=== PATIENT | female | born 1980 | race American Indian/Alaskan Native ===

== ENCOUNTER → 2020-09-17 11:42 | Outpatient (BNVA) | payer OTHER, SELFPAY | PROVIDERS: PCP Internal Medicine; Referring Provider Internal Medicine; Visit Provider Student in an Organized Health Care Education/Training Program | DX: M79.7 Fibromyalgia (principal); Z79.899 Other long term (current) drug therapy | CPT/HCPCS: 99212 ==

== ENCOUNTER → 2020-10-13 14:12 | Outpatient (BNVA) | payer OTHER, SELFPAY | PROVIDERS: PCP Internal Medicine; Visit Provider Internal Medicine Endocrinology, Diabetes & Metabolism | DX: E03.9 Hypothyroidism, unspecified (principal); L68.0 Hirsutism; L64.9 Androgenic alopecia, unspecified; E66.01 Morbid (severe) obesity due to excess calories; Z68.41 Body mass index [BMI] 40.0-44.9, adult; Z79.899 Other long term (current) drug therapy | CPT/HCPCS: 99212 ==

== ENCOUNTER 2020-10-28 07:46 | Outpatient (REF) | payer OTHER, SELFPAY ==
[2020-10-28 09:05] LABS: Anion Gap 13 (12-20); Blood Urea Nitrogen 16 mg/dL (9-16); Calcium 9.3 mg/dL (8.4-10.2); Carbon Dioxide 27 mmol/L (22-29); Chloride 100 mmol/L (96-108); Estimated Glomerular Filt Rate > 60; Glucose Fasting 94 mg/dL (60-99); Potassium 4.5 mmol/l (3.3-5.1); Sodium 135 mmol/L (135-145)
[2020-10-28 09:27] LABS: Free T4 (Free Thyroxine) 1.07 ng/dL (0.71-1.85); Thyroid Stimulating Hormone 1.13 uIU/mL (0.32-4.0)
[2020-10-28 10:48] LABS: Glucose 1 Hour 113 mg/dL
[2020-10-28 11:16] LABS: Glucose Fasting 94 mg/dL (60-99)
[2020-10-28 11:28] LABS: Glucose 2 Hour 114 mg/dL
[2020-10-29 11:17] LABS: DHEA Sulfate 72 mcg/dL (23-266); Sex Hormone Binding Globulin 27 nmol/L (17-124)
[2020-10-30 00:12] LABS: Lutenizing Hormone 4.3 mIU/mL; Prolactin 8.1 ng/mL
[2020-10-30 18:11] LABS: Adrenocorticotropic Hormone <5 pg/mL (6-50)
[2020-11-01 12:23] LABS: IGF-1 (Somatomedin C) 147 ng/mL (53-331); IGF-1 Z Score (Female) 0.1 SD (-2.0 - +2.0)
[2020-11-01 15:02] LABS: Testosterone, Free 2.1 pg/mL (0.1-6.4); Testosterone, Total 16 ng/dL (2-45)
[2020-11-02 17:26] LABS: Androstenedione 40 ng/dL
[2020-11-04 21:23] LABS: 11-Deoxycortisol, LC/MS <20 ng/dL
== END 2020-10-28 07:47 | disposition home or self-care (01) ==
LOC: HO.LAB 07:46
PROVIDERS: PCP Internal Medicine; Referring Provider Student in an Organized Health Care Education/Training Program; Visit Provider Internal Medicine Endocrinology, Diabetes & Metabolism
DX: L68.0 Hirsutism (principal)
CPT/HCPCS: 80048; 82024; 82157; 82533; 82627; 82634; 83001; 83002; 83498; 84146; 84270; 84305; 84402; 84403; 84439; 84443

== ENCOUNTER 2020-10-29 12:49 | Outpatient (REF) | payer OTHER, SELFPAY ==
--- NOTE | 2020-10-29 13:12 | XR_ITS ---
EXAMINATION: XR HIP, LEFT XR HIP, RIGHT CLINICAL INFORMATION: Fibromyalgia. Pain. COMPARISON: None TECHNIQUE: Right hip, 2 views Left hip, 2 views FINDINGS: Left hip: The femoral head is well-positioned within the intact acetabulum. The hip joint space is maintained. Two small smoothly marginated ossicles are noted at the superolateral margin of the acetabulum. No evidence of a degenerative or inflammatory arthropathy. No femoral fracture or osteonecrosis. No soft tissue swelling. Right hip: The femoral head is well-positioned within the intact acetabulum. The hip joint space is normal. No evidence of a degenerative or inflammatory arthropathy. No femoral fracture or osteonecrosis. Soft tissues are unremarkable. XR/XR hip RT min 2V IMPRESSION: No significant radiographic findings at either hip. No specific source of pain is detected.
--- NOTE | 2020-10-29 13:12 | XR_ITS ---
EXAMINATION: XR HIP, LEFT XR HIP, RIGHT CLINICAL INFORMATION: Fibromyalgia. Pain. COMPARISON: None TECHNIQUE: Right hip, 2 views Left hip, 2 views FINDINGS: Left hip: The femoral head is well-positioned within the intact acetabulum. The hip joint space is maintained. Two small smoothly marginated ossicles are noted at the superolateral margin of the acetabulum. No evidence of a degenerative or inflammatory arthropathy. No femoral fracture or osteonecrosis. No soft tissue swelling. Right hip: The femoral head is well-positioned within the intact acetabulum. The hip joint space is normal. No evidence of a degenerative or inflammatory arthropathy. No femoral fracture or osteonecrosis. Soft tissues are unremarkable. XR/XR hip LT min 2V IMPRESSION: No significant radiographic findings at either hip. No specific source of pain is detected.
[2020-11-03 17:58] LABS: Saliva Cortisol 0.03 mcg/dL
== END 2020-10-29 12:50 | disposition home or self-care (01) ==
LOC: HO.XRAY 12:49
PROVIDERS: PCP Internal Medicine; Referring Provider Internal Medicine Endocrinology, Diabetes & Metabolism; Visit Provider Student in an Organized Health Care Education/Training Program
DX: M79.7 Fibromyalgia (principal); L68.0 Hirsutism
CPT/HCPCS: 73502; 82530

== ENCOUNTER → 2021-01-11 10:32 | Outpatient (BNVA) | payer OTHER, SELFPAY | PROVIDERS: PCP Internal Medicine; Visit Provider Internal Medicine Endocrinology, Diabetes & Metabolism | DX: E03.9 Hypothyroidism, unspecified (principal); L68.0 Hirsutism; E66.01 Morbid (severe) obesity due to excess calories | CPT/HCPCS: 99212 ==

== ENCOUNTER → 2021-01-27 09:41 | Outpatient (BNVA) | payer OTHER, SELFPAY | PROVIDERS: PCP Internal Medicine; Visit Provider Dietitian, Registered ==

== ENCOUNTER → 2021-03-01 13:15 | Outpatient (BNVA) | payer OTHER, SELFPAY | PROVIDERS: PCP Internal Medicine; Visit Provider Dietitian, Registered | DX: E66.01 Morbid (severe) obesity due to excess calories (principal) | CPT/HCPCS: 97803 ==

== ENCOUNTER → 2021-03-31 10:57 | Outpatient (BNVA) | payer OTHER, SELFPAY | PROVIDERS: PCP Internal Medicine; Visit Provider Dietitian, Registered | DX: E66.01 Morbid (severe) obesity due to excess calories (principal) | CPT/HCPCS: 97803 ==

== ENCOUNTER 2021-04-29 11:39 | Outpatient (REF) | payer OTHER, SELFPAY ==
--- NOTE | ~2021-04-29 | XR_ITS ---
EXAMINATION: XR LUMBOSACRAL SPINE CLINICAL INFORMATION: Fibromyalgia COMPARISON: None TECHNIQUE: Three views of the lumbosacral spine. FINDINGS: No acute fracture or traumatic malalignment. Mild levoconvex lumbar scoliosis. Small endplate osteophytes present at the thoracolumbar junction. Disc space height is relatively preserved. Mild bilateral cyclic arthrosis. Paraspinal soft tissues unremarkable. XR/XR lumbar spine 2-3V IMPRESSION: No acute findings. Mild lumbar spondylosis as described.
== END 2021-04-29 11:40 | disposition home or self-care (01) ==
LOC: HO.XRAY 11:39
PROVIDERS: PCP Internal Medicine; Visit Provider Student in an Organized Health Care Education/Training Program
DX: M79.7 Fibromyalgia (principal); Z79.899 Other long term (current) drug therapy
CPT/HCPCS: 72100; 99212

== ENCOUNTER → 2021-06-02 13:39 | Outpatient (BNVA) | payer OTHER, SELFPAY | PROVIDERS: PCP Internal Medicine; Visit Provider Dietitian, Registered | DX: E66.01 Morbid (severe) obesity due to excess calories (principal); Z68.39 Body mass index [BMI] 39.0-39.9, adult | CPT/HCPCS: 97803 ==

== ENCOUNTER 2021-06-28 10:34 | Outpatient (REF) | payer OTHER, SELFPAY ==
[2021-06-28 14:09] LABS: MANUAL DIFF FLAG NO
[2021-06-28 14:15] LABS: Basophils Absolute Auto 0.2 X10*3/uL (0.0-0.2); Basophils Percent Auto 1.8 % (0-2); Eosinophils Absolute Auto 0.2 X10*3/uL (0.0-0.4); Eosinophils Percent Auto 2.1 % (0-4); Hematocrit 42.1 % (37-47); Hemoglobin 13.4 g/dl (12.0-16.0); Imm Gran Abs Auto 0.04 X10*3/uL (0.00-0.03); Imm Gran Pct Auto 0.4 % (0.0-0.4); Lymphocytes Absolute Auto 3.2 X10*3/uL (1.2-4.9); Lymphocytes Percent Auto 34.5 % (20-40); Mean Corpuscular HGB Conc 31.8 g/dl (31.0-35.0); Mean Corpuscular Hemoglobin 29.6 pg (27.0-33.0); Mean Corpuscular Volume 93.1 fL (80-98); Mean Platelet Volume 10.5 fL (9.4-12.3); Monocytes Absolute Auto 0.8 X10*3/uL (0.1-1.2); Monocytes Percent Auto 8.4 % (2-11); Neutrophils Absolute Auto 4.9 X10*3/uL (2.0-8.3); Neutrophils Percent Auto 52.8 % (45-73); Platelet Count 344 X10*3/uL (160-400); Red Blood Count 4.52 X10*6/uL (4.20-5.50); Red Cell Distribution Width 12.3 % (11.0-16.0); White Blood Count 9.4 X10*3/uL (4.8-10.8)
[2021-06-28 14:33] LABS: Alanine Aminotransferase 24 U/L (0-31); Anion Gap 13 (12-20); Aspartate Amino Transferase 24 U/L (5-31); Blood Urea Nitrogen 15 mg/dL (9-16); Calcium 9.4 mg/dL (8.4-10.2); Carbon Dioxide 27 mmol/L (22-29); Chloride 103 mmol/L (96-108); Cholesterol 206 mg/dL; Estimated Glomerular Filt Rate 56; Glucose Fasting 94 mg/dL (60-99); HDL Cholesterol 43 mg/dL; LDL Cholesterol Calculated 139 mg/dl; Potassium 4.7 mmol/L (3.3-5.1); Sodium 138 mmol/L (135-145); Triglycerides 120 mg/dL
[2021-06-28 14:57] LABS: Thyroid Stimulating Hormone 3.34 uIU/mL (0.32-4.0); Vitamin D 25-OH Total 42.5 ng/mL (>30)
[2021-06-28 16:21] LABS: Folate 7.7 ng/mL (> or = 4.0); Vitamin B12 624 pg/mL (200-900)
[2021-07-01 15:22] LABS: Thyroid Stimulating Immunoglob <89 % baseline (<140)
[2021-07-02 14:12] LABS: IGF-1 (Somatomedin C) 88 ng/mL (52-328)
== END 2021-06-28 10:35 | disposition home or self-care (01) ==
LOC: HO.HMGCLDS 10:34
PROVIDERS: Internal Medicine Endocrinology, Diabetes & Metabolism; PCP Internal Medicine; Visit Provider Internal Medicine
DX: E03.9 Hypothyroidism, unspecified (principal); E66.01 Morbid (severe) obesity due to excess calories; E78.5 Hyperlipidemia, unspecified; K29.70 Gastritis, unspecified, without bleeding; I10 Essential (primary) hypertension; L68.0 Hirsutism
CPT/HCPCS: 36415; 80048; 80061; 82306; 82607; 82746; 84305; 84439; 84443; 84445; 84450; 84460; 85025

== ENCOUNTER → 2021-07-12 11:35 | Outpatient (BNVA) | payer OTHER, SELFPAY | PROVIDERS: PCP Internal Medicine; Visit Provider Internal Medicine ==

== ENCOUNTER 2021-08-18 12:50 | Outpatient (REF) | payer OTHER, SELFPAY ==
--- NOTE | ~2021-08-18 | MM_ITS ---
EXAMINATION: MM SCREENING DIGITAL BREAST TOMOSYNTHESIS, BILATERAL CLINICAL INFORMATION: Screening. Asymptomatic. No prior breast imaging. Age 41. Family history breast cancer, maternal aunt. The lifetime risk of breast cancer based on the Tyrer-Cuzick Model is 18%. COMPARISON: None (current study represents initial baseline exam). TECHNIQUE: Digital breast tomosynthesis is performed in both the craniocaudal and mediolateral oblique views along with computer-aided detection (CAD). Synthesized 2D images are generated from the tomosynthesis. FINDINGS: There are scattered areas of fibroglandular density (ACR BI-RADS breast composition Category b). Breast tissue composition borders on predominantly fatty. Background stromal and fibroglandular densities are unremarkable. No mass or architectural abnormality. No abnormal calcifications. The axilla and skin contours are unremarkable. MM/MM tomosynthesis screening BI IMPRESSION: No mammographic evidence of malignancy. ASSESSMENT: BI-RADS 1: Negative RECOMMENDATION: Routine annual mammography screening. This patient's information was entered into a reminder system with a target due date for their next mammogram.
== END 2021-08-18 12:51 | disposition home or self-care (01) ==
LOC: HO.MAMMO 12:50
PROVIDERS: Visit Provider Internal Medicine
DX: Z12.31 Encounter for screening mammogram for malignant neoplasm of breast (principal)
CPT/HCPCS: 77063; 77067

== ENCOUNTER 2021-08-31 07:15 | Outpatient (REF) | payer OTHER, SELFPAY ==
[2021-08-31 08:43] LABS: Estimated Average Glucose 103 mg/dL; Hemoglobin A1c % 5.2 %
[2021-08-31 08:50] LABS: Glucose Fasting 92 mg/dL (60-99)
[2021-08-31 08:52] LABS: Alanine Aminotransferase 32 U/L (0-31); Albumin Level 4.1 g/dL (3.5-5.0); Alkaline Phosphatase 61 U/L (39-117); Anion Gap 11 (12-20); Aspartate Amino Transferase 23 U/L (5-31); Bilirubin Total 0.3 mg/dL (0.0-1.0); Blood Urea Nitrogen 14 mg/dL (9-16); Calcium 9.3 mg/dL (8.4-10.2); Carbon Dioxide 27 mmol/L (22-29); Chloride 104 mmol/L (96-108); Estimated Glomerular Filt Rate 58; Glucose Random 94 mg/dL (60-115); Potassium 4.4 mmol/L (3.3-5.1); Sodium 138 mmol/L (135-145)
[2021-08-31 09:14] LABS: Free T4 (Free Thyroxine) 0.92 ng/dL (0.71-1.85); HCG Quantitative < 2 mIU/mL; Thyroid Stimulating Hormone 2.36 uIU/mL (0.32-4.0); Vitamin D 25-OH Total 31.2 ng/mL (>30)
[2021-08-31 09:24] LABS: Cortisol Random 3.4 ug/dL
[2021-08-31 10:20] LABS: Glucose 1 Hour 163 mg/dL
[2021-08-31 11:08] LABS: Glucose 2 Hour 121 mg/dL
[2021-09-01 18:42] LABS: Sex Hormone Binding Globulin 28 nmol/L (17-124)
[2021-09-01 20:21] LABS: Follicle Stimulating Hormone 2.3 mIU/mL; Lutenizing Hormone 2.6 mIU/mL; Prolactin 14.1 ng/mL
[2021-09-02 02:40] LABS: DHEA Sulfate 68 mcg/dL (23-266)
[2021-09-04 01:11] LABS: Estradiol Ultra Sensitive 57 pg/mL
[2021-09-04 12:42] LABS: Testosterone, Free 2.4 pg/mL (0.1-6.4); Testosterone, Total 17 ng/dL (2-45)
[2021-09-08 16:56] LABS: Androstenedione 45 ng/dL
[2021-09-13 13:17] LABS: Adrenocorticotropic Hormone 11 pg/mL (6-50)
== END 2021-08-31 07:16 | disposition home or self-care (01) ==
LOC: HO.WFDLDS 07:15
PROVIDERS: PCP Internal Medicine; Visit Provider Internal Medicine
DX: E28.2 Polycystic ovarian syndrome (principal)
CPT/HCPCS: 36415; 80053; 82024; 82157; 82306; 82533; 82627; 82670; 83001; 83002; 83036; 83498; 84146; 84270; 84402; 84403; 84439; 84443; 84702

== ENCOUNTER → 2021-09-03 12:19 | Outpatient (BNVA) | payer OTHER, SELFPAY | PROVIDERS: PCP Internal Medicine; Visit Provider Dietitian, Registered | DX: E66.01 Morbid (severe) obesity due to excess calories (principal); Z68.41 Body mass index [BMI] 40.0-44.9, adult | CPT/HCPCS: 97803 ==

== ENCOUNTER → 2021-10-29 11:51 | Outpatient (BNVA) | payer OTHER, SELFPAY | PROVIDERS: PCP Internal Medicine; Referring Provider Internal Medicine; Visit Provider Physician Assistant Surgical ==

== ENCOUNTER → 2021-11-01 08:08 | Outpatient (BNVA) | payer OTHER, SELFPAY | PROVIDERS: PCP Internal Medicine; Visit Provider Surgery ==

== ENCOUNTER 2021-11-02 09:06 | Outpatient (REF) | payer OTHER, SELFPAY ==
--- NOTE | ~2021-11-02 | XR_ITS ---
EXAMINATION: XR CHEST CLINICAL INFORMATION: Morbid (severe) obesity due to excess calories. COMPARISON: None TECHNIQUE: 2 views of the chest were obtained. FINDINGS: Normal symmetric lung volumes. No parenchymal consolidation. No pleural effusion. No pneumothorax. Cardiomediastinal silhouette and pulmonary vascularity are within normal limits. No acute osseous abnormalities. XR/XR chest 2V IMPRESSION: No acute findings
[2021-11-02 09:42] LABS: MANUAL DIFF FLAG NO
--- NOTE | 2021-11-02 09:46 | ECG_ITS ---
Test Reason : morbid obesity Blood Pressure : / mmHG Vent. Rate : 070 BPM Atrial Rate : 070 BPM P-R Int : 172 ms QRS Dur : 062 ms QT Int : 412 ms P-R-T Axes : 013 006 012 degrees QTc Int : 444 ms Normal sinus rhythm Normal ECG When compared with ECG of 08-SEP-2016 09:25, No significant change was found Referred By: Oral Easley Electronically Signed By:KYLAH MCKEON MD
[2021-11-02 09:52] LABS: Basophils Absolute Auto 0.1 X10*3/uL (0.0-0.2); Basophils Percent Auto 1.6 % (0-2); Eosinophils Absolute Auto 0.2 X10*3/uL (0.0-0.4); Eosinophils Percent Auto 1.8 % (0-4); Hematocrit 43.6 % (37.0-47.0); Hemoglobin 14.5 g/dl (12.0-16.0); Imm Gran Abs Auto 0.03 X10*3/uL (0.00-0.03); Imm Gran Pct Auto 0.3 % (0.0-0.4); Lymphocytes Absolute Auto 3.1 X10*3/uL (1.2-4.9); Lymphocytes Percent Auto 35.7 % (20-40); Mean Corpuscular HGB Conc 33.3 g/dl (31.0-35.0); Mean Corpuscular Hemoglobin 30.3 pg (27.0-33.0); Mean Platelet Volume 9.9 fL (9.4-12.3); Monocytes Absolute Auto 0.7 X10*3/uL (0.1-1.2); Monocytes Percent Auto 7.4 % (2-11); Neutrophils Absolute Auto 4.7 x10*3/uL (2.0-8.3); Neutrophils Percent Auto 53.2 % (45-73); Platelet Count 322 X10*3/uL (160-400); Red Blood Count 4.79 X10*6/uL (4.20-5.50); Red Cell Distribution Width 11.9 % (11.0-16.0); White Blood Count 8.8 X10*3/uL (4.8-10.8)
[2021-11-02 09:58] LABS: Estimated Average Glucose 111 mg/dL; Hemoglobin A1c % 5.5 %
[2021-11-02 10:23] LABS: Alanine Aminotransferase 26 U/L (0-31); Albumin Level 4.6 g/dL (3.5-5.0); Alkaline Phosphatase 83 U/L (39-117); Anion Gap 14 (12-20); Aspartate Amino Transferase 21 U/L (5-31); Bilirubin Total 0.5 mg/dL (0.0-1.0); Blood Urea Nitrogen 18 mg/dL (9-16); C Reactive Protein 0.79 mg/dL (< or = 0.50); Calcium 10.1 mg/dL (8.4-10.2); Carbon Dioxide 26 mmol/L (22-29); Chloride 100 mmol/L (96-108); Cholesterol 218 mg/dL; Estimated Glomerular Filt Rate 52; Glucose Random 112 mg/dL (60-115); HDL Cholesterol 43 mg/dL; Iron 119 mcg/dL (30-160); LDL Cholesterol Calculated 145 mg/dl; Percent Iron Saturation 35 % (15-50); Potassium 4.4 mmol/L (3.3-5.1); Sodium 136 mmol/L (135-145); Total Iron Binding Capacity 337 mcg/dL (228-428); Total Protein 7.4 g/dL (6.5-8.0); Triglycerides 151 mg/dL; Unsaturated Iron Binding 218 ug/dL
[2021-11-02 10:46] LABS: Ferritin 123 ng/mL (10-250); TSH reflex Free T4 2.42 uIU/mL (0.32-4.0); Vitamin D 25-OH Total 32.2 ng/mL (>30)
[2021-11-02 11:16] LABS: Insulin 13 uU/mL (2-29)
[2021-11-02 11:24] LABS: Folate 9.3 ng/mL (> or = 4.0); Vitamin B12 619 pg/mL (200-900)
[2021-11-03 14:09] LABS: H Pylori Breath Test Negative (Negative)
[2021-11-03 20:51] LABS: Calcium (PTHI) 9.6 mg/dL (8.6-10.2); PTHI 48 pg/mL (14-64)
[2021-11-06 00:12] LABS: Zinc 111 mcg/dL (60-130)
[2021-11-08 07:47] LABS: Vitamin B1 <6 nmol/L (8-30)
[2021-11-08 18:46] LABS: Vitamin A 61 mcg/dL (38-98)
== END 2021-11-02 09:07 | disposition home or self-care (01) ==
LOC: HO.LAB 09:06
PROVIDERS: Visit Provider Surgery
DX: E03.9 Hypothyroidism, unspecified (principal); I10 Essential (primary) hypertension; E66.01 Morbid (severe) obesity due to excess calories; K21.9 Gastro-esophageal reflux disease without esophagitis; M79.7 Fibromyalgia; M54.50 Low back pain, unspecified; M25.512 Pain in left shoulder
CPT/HCPCS: 36415; 71046; 80053; 80061; 82306; 82607; 82728; 82746; 83013; 83036; 83525; 83540; 83970; 84425; 84443; 84590; 84630; 85025; 86140; 93005; 99211; 99212

== ENCOUNTER → 2021-11-03 08:34 | Outpatient (BNVA) | payer OTHER, SELFPAY | PROVIDERS: PCP Internal Medicine; Visit Provider Internal Medicine ==

== ENCOUNTER 2021-11-29 11:21 | Outpatient (REF) | payer OTHER, SELFPAY ==
--- NOTE | ~2021-11-29 | US_ITS ---
EXAMINATION: US THYROID CLINICAL INFORMATION: Goiter. No personal nor family history of thyroid malignancy. COMPARISON: None. TECHNIQUE: Linear transducer grayscale and color Doppler examination with attention to the region of the thyroid. FINDINGS: SIZE: Measurements of the thyroid lobes and nodules are given in sagittal, anteroposterior and transverse dimensions respectively. Right Thyroid Lobe: 5.4 x 1.6 x 1.8 cm, volume 8 mL. Parenchyma: The gland echotexture is homogeneous. Thyroid vascularity is normal. Left Thyroid Lobe: 4.8 x 1.2 x 1.6 cm, volume 5 mL. Parenchyma: The gland echotexture is homogeneous. Thyroid vascularity is normal. Isthmus: 0.5 cm in maximum AP dimension. No thyroid or extrathyroidal nodules. NODES: No lymphadenopathy is seen in the tissue surrounding the thyroid gland. US/US thyroid IMPRESSION: Normal sonographic examination of the thyroid.
== END 2021-11-29 11:22 | disposition home or self-care (01) ==
LOC: HO.US 11:21
PROVIDERS: PCP Internal Medicine; Visit Provider Internal Medicine
DX: E04.9 Nontoxic goiter, unspecified (principal)
CPT/HCPCS: 76536

== ENCOUNTER → 2021-12-03 08:05 | Outpatient (BNVA) | payer OTHER, SELFPAY | PROVIDERS: PCP Internal Medicine; Visit Provider Surgery ==

== ENCOUNTER → 2021-12-08 08:02 | Outpatient (BNVA) | payer OTHER, SELFPAY | PROVIDERS: PCP Internal Medicine; Visit Provider Dietitian, Registered | DX: E66.01 Morbid (severe) obesity due to excess calories (principal); Z71.3 Dietary counseling and surveillance | CPT/HCPCS: 97802 ==

== ENCOUNTER 2021-12-13 | Outpatient (REF) | payer OTHER, SELFPAY | END 2021-12-13 00:01 | disposition home or self-care (01) | LOC: CF | PROVIDERS: Visit Provider Anesthesiology | DX: Z13.89 Encounter for screening for other disorder (principal) ==

== ENCOUNTER 2021-12-13 | Outpatient (REF) | payer OTHER, SELFPAY | END 2021-12-13 00:01 | LOC: CF | PROVIDERS: Visit Provider Anesthesiology | DX: M46.1 Sacroiliitis, not elsewhere classified (principal); M41.9 Scoliosis, unspecified; M47.816 Spondylosis without myelopathy or radiculopathy, lumbar region | CPT/HCPCS: 99202 ==

== ENCOUNTER 2021-12-20 08:11 | Outpatient (REF) | payer OTHER, SELFPAY ==
--- NOTE | ~2021-12-20 | FL_ITS ---
EXAMINATION: XR FLUOROSCOPY UPPER GI WITH AIR CLINICAL INFORMATION: Morbid/severe obesity due to excess calories. COMPARISON: None. TECHNIQUE: Routine upper GI air-contrast study was performed in upright and lying position. FINDINGS: Following oral administration of thick barium and effervescent granules, there is normal propagation of bolus from the oral cavity through the pharynx and esophagus and into the stomach without any evidence of obstruction, stricture or narrowing. The course, caliber and peristalsis in the stomach and the duodenal bulb are normal. There is a focal barium round pooling in the body of the stomach, question artifact versus focal erosion. There are increased secretions and flocculation in the antrum of the stomach. FLUOROSCOPY TIME: 1.3 minutes. DOSE AREA PRODUCT: 33.774 uGy-m2 (microgray-meter squared). FL/FL upper GI w air IMPRESSION: Suspect mild hyperacidity with focal large gastric erosion/ulcer in the body of the stomach. Ulcer is considered less likely. It could also represent an artifact. Patient has no gastric symptoms?
--- NOTE | ~2021-12-20 | US_ITS ---
EXAMINATION: US COMPLETE ABDOMEN WITH LIVER ELASTOGRAPHY CLINICAL INFORMATION: Morbid/severe obesity due to excess calories COMPARISON: None. TECHNIQUE: Real-time imaging of the abdominal viscera. Noninvasive ultrasound liver fibrosis assessment is performed using Trey ElastPQ point quantification shear wave elastography (2D-SWE) with a C5-2 MHz transducer. Multiple elastography samples are obtained. FINDINGS: PANCREAS: Visualized head and the body of the pancreas is homogeneous in echotexture. The tail is obscured by overlying gas. ABDOMINAL AORTA: The proximal, middle, and distal aortic segments are normal in caliber. INFERIOR VENA CAVA: Visualized portions are normal. LIVER: The liver demonstrates normal size, contour and echogenicity. No focal lesion or intrahepatic biliary duct dilatation. The right lobe measures 14.5 cm in length. The left lobe measures 11.6 cm in length. Portal flow is hepatopedal. Shear wave liver elastography median stiffness is 1.36 m/s (reference: normal median stiffness is 1.3 m/s or less). IQR/median stiffness to assess sampling precision is 0.54 (reference: good quality data set is IQR/median stiffness of 0.15 or less). GALLBLADDER: There are echogenic gallstones with shadowing. No gallbladder wall thickening is visualized. COMMON BILE DUCT: Normal in caliber measuring 0.2 cm in diameter. RIGHT KIDNEY: Normal. No hydronephrosis. No renal calculi or focal parenchymal lesions. The kidney measures 10.6 cm in maximum dimension. LEFT KIDNEY: Normal. No hydronephrosis. No renal calculi or focal parenchymal lesions. The kidney measures 10.5 cm in maximum dimension. SPLEEN: Normal. The spleen measures 9.4 cm in maximum dimension. FREE FLUID: None. US/US abdomen comp w elastography IMPRESSION: 1. Gallstones with no wall thickening seen. Rest of the abdominal ultrasound is unremarkable. 2. Liver elastography: Median liver stiffness is 1.36 cm/second. This is suggestive of cACLD REFERENCE: Society of Radiologists in Ultrasound Liver Stiffness Thresholds (2020): LIVER STIFFNESS THRESHOLDS: *Liver Stiffness equal or less than 1.3 m/s: High probability of being normal. *Liver Stiffness less than 1.7 m/s: In the absence of other known clinical signs, rules out compensated advanced chronic liver disease. *Liver Stiffness 1.7-2.1 m/s: Suggestive of compensated advanced chronic liver disease but need further test for confirmation. *Liver Stiffness over 2.1 m/s: Rules in compensated advanced chronic liver disease. *Liver Stiffness over 2.4 m/s: Suggestive of clinically significant portal hypertension. QUALITY OF DATA SET: *IQR/Median value equal or less than 0.15 implies a quality data set. *IQR/Median value over 0.15 implies a poor quality data set. SIGNIFICANT CHANGE FROM PRIOR EXAM: Significant change if liver stiffness measurement is 10% or greater from prior exam. OTHER CONSIDERATIONS: The stage of liver fibrosis may be overestimated in the setting of acute hepatitis, liver inflammation, elevated liver function tests, hepatic vascular congestion, obstructive cholestasis, non-fasting state, and infiltrative diseases such as amyloidosis and lymphoma. In some patients with NAFLD, the liver stiffness thresholds for compensated advanced chronic liver disease may be lower. In causes other than viral hepatitis and NAFLD, liver stiffness thresholds are not well established.
== END 2021-12-20 08:12 | disposition home or self-care (01) ==
LOC: HO.US 08:11
PROVIDERS: PCP Internal Medicine; Visit Provider Surgery
DX: E66.01 Morbid (severe) obesity due to excess calories (principal); E03.9 Hypothyroidism, unspecified; I10 Essential (primary) hypertension; K21.9 Gastro-esophageal reflux disease without esophagitis
CPT/HCPCS: 74246; 76705; 76981

== ENCOUNTER → 2021-12-20 | Outpatient (REF) | payer OTHER, SELFPAY | LOC: HO.SL | PROVIDERS: PCP Internal Medicine; Visit Provider Surgery | DX: E66.01 Morbid (severe) obesity due to excess calories (principal); E03.9 Hypothyroidism, unspecified; I10 Essential (primary) hypertension; K21.9 Gastro-esophageal reflux disease without esophagitis | CPT/HCPCS: 95806 ==

== ENCOUNTER → 2021-12-22 08:13 | Outpatient (BNVA) | payer OTHER, SELFPAY | PROVIDERS: PCP Internal Medicine; Visit Provider Surgery ==

== ENCOUNTER 2021-12-24 13:18 | Outpatient (REF) | payer OTHER, SELFPAY ==
[2021-12-24 13:42] LABS: MANUAL DIFF FLAG NO
[2021-12-24 14:05] LABS: Basophils Absolute Auto 0.1 X10*3/uL (0.0-0.2); Basophils Percent Auto 0.4 % (0-2); Eosinophils Absolute Auto 0.1 X10*3/uL (0.0-0.4); Eosinophils Percent Auto 0.8 % (0-4); Hematocrit 42.3 % (37.0-47.0); Hemoglobin 13.8 g/dl (12.0-16.0); Imm Gran Abs Auto 0.07 X10*3/uL (0.00-0.03); Imm Gran Pct Auto 0.5 % (0.0-0.4); Lymphocytes Absolute Auto 3.3 X10*3/uL (1.2-4.9); Lymphocytes Percent Auto 22.4 % (20-40); Mean Corpuscular HGB Conc 32.6 g/dl (31.0-35.0); Mean Corpuscular Hemoglobin 30.4 pg (27.0-33.0); Mean Corpuscular Volume 93.2 fL (80.0-98.0); Mean Platelet Volume 10.9 fL (9.4-12.3); Monocytes Absolute Auto 1.1 X10*3/uL (0.1-1.2); Monocytes Percent Auto 7.3 % (2-11); Neutrophils Percent Auto 68.6 % (45-73); Platelet Count 319 X10*3/uL (160-400); Red Blood Count 4.54 X10*6/uL (4.20-5.50); Red Cell Distribution Width 12.5 % (11.0-16.0); White Blood Count 14.5 X10*3/uL (4.8-10.8)
[2021-12-24 14:26] LABS: Alanine Aminotransferase 39 U/L (0-31); Albumin Level 4.4 g/dL (3.5-5.0); Alkaline Phosphatase 72 U/L (39-117); Anion Gap 11 (12-20); Aspartate Amino Transferase 17 U/L (5-31); Bilirubin Total 0.4 mg/dL (0.0-1.0); Blood Urea Nitrogen 19 mg/dL (9-16); Carbon Dioxide 29 mmol/L (22-29); Chloride 102 mmol/L (96-108); Estimated Glomerular Filt Rate 56; Glucose Random 90 mg/dL (60-115); Potassium 4.7 mmol/L (3.3-5.1); Sodium 137 mmol/L (135-145); Total Protein 7.1 g/dL (6.5-8.0)
[2021-12-24 14:39] LABS: INTERNATIONAL NORM RATIO 1.1 (0.9-1.1); Prothrombin Time 12.9 SEC (9.9-13.0)
[2021-12-24 14:42] LABS: Partial Thromboplastin Time 36.5 SEC (24.1-38.0)
== END 2021-12-24 13:19 | disposition home or self-care (01) ==
LOC: HO.LAB 13:18
PROVIDERS: PCP Internal Medicine; Visit Provider Surgery
DX: E66.01 Morbid (severe) obesity due to excess calories (principal); E78.5 Hyperlipidemia, unspecified; I10 Essential (primary) hypertension; K21.9 Gastro-esophageal reflux disease without esophagitis; E03.9 Hypothyroidism, unspecified
CPT/HCPCS: 36415; 80053; 85025; 85610; 85730

== ENCOUNTER 2021-12-28 11:00 | Day surgery (SDC) | payer OTHER, SELFPAY ==
--- NOTE | 2021-12-25 11:34 | MHC.SHP ---
Pre-Procedural Eval Section A Date of Service: 12/25/21 The patient is an INPATIENT: No The History & Physical has been completed within 30 days and I have reviewed it.: Yes Section B Chief Complaint: reflux,cholecystitis Relevant Family History (Specify if Yes): No Relevant Social History: None Medical History: No relevant PMH History of Previous Operations: No relevant previous surgery Allergies: Allergies Allergy/AdvReac Type Severity Reaction Status Date / Time cat dander [CAT DANDER] Allergy Mild EYES- Verified 12/13/21 11:47 TEAR, ITCHY, face swells dog dander [DOG DANDER] Allergy Mild EYES- Verified 12/13/21 11:47 TEAR, ITCHY, hives duloxetine [From CYMBALTA] AdvReac Intermediate VAGINAL Verified 12/13/21 11:47 BLEEDING Review of Systems Sugical H&P ROS: Negative: Constitution, Cardiovascular, Respiratory, Neurological, Psychiatric, Hem-Onc, Allergic/Immunologic, Gastrointestinal, Genitourinary, Musculoskeletal, Integumentary, Endocrine and Eyes/Ears/Nose/Throat Exam Surgical H&P Exam: Normal: HEENT, Normal: Heart, Normal: Lungs, Normal: Extremities, Normal: Abdomen, Normal: Skin and Normal: Neurological Plan Diagnosis/Plan: Unchanged I have reviewed the history and physical and performed a pertinent physical examination on my patient. No changes have occurred unless specified.
--- NOTE | 2021-12-27 10:47 | P.CONAN_ITS ---
Documented by User: Emerald Aguilar NP 12/27/21 10:50 HPI - Anesthesia Eval Consult details Narrative: 41yo F for Cholecystectomy Laparoscopic, Upper Endoscopy PMFSH Active Problems Active Problems: All Active Problems (Updated 12/22/21 @ 13:51 by Oral Easley MD) Gastric ulcer (Acute) Cholelithiasis (Acute) Nausea (Acute) Sacroiliitis (Acute) Spondylosis of lumbar region without myelopathy or radiculopathy (Acute) Scoliosis (Acute) Vitamin B1 deficiency (Acute) Goiter (Acute) Low back pain (Acute) Restless leg syndrome (Acute) ADHD (attention deficit hyperactivity disorder) (Acute) Anxiety (Acute) OCD (obsessive compulsive disorder) (Acute) Hypertension (Acute) GERD (gastroesophageal reflux disease) (Acute) Vitamin D deficiency (Acute) PCOS (polycystic ovarian syndrome) (Acute) Body mass index [BMI]40.0-44.9, adult (Acute) Irritable bowel syndrome with diarrhea (Acute) Environmental and seasonal allergies (Acute) Breast cancer screening by mammogram (Acute) Dyslipidemia (Acute) Gastritis (Acute) Eczema (Acute) Oral abscess (Acute) Morbid obesity (Acute) Hirsutism (Acute) Androgenetic alopecia (Acute) Telogen effluvium (Acute) Heartburn (Acute) Degenerative disc disease, lumbar (Acute) Fibromyalgia (Acute) Bipolar disorder (Acute) Rosacea (Acute) Acquired hypothyroidism (Acute) Past Medical History Medical History (Updated 12/22/21 @ 13:51 by Oral Easley MD) Acquired hypothyroidism ADHD (attention deficit hyperactivity disorder) Androgenetic alopecia Anxiety Bipolar disorder Body mass index [BMI]40.0-44.9, adult Breast cancer screening by mammogram Degenerative disc disease, lumbar Dyslipidemia Environmental and seasonal allergies Fibromyalgia Gastritis GERD (gastroesophageal reflux disease) Goiter Heartburn Hirsutism Hypertension Irritable bowel syndrome with diarrhea Morbid obesity OCD (obsessive compulsive disorder) PCOS (polycystic ovarian syndrome) Restless leg syndrome Rosacea Sacroiliitis Scoliosis 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 Vitamin D deficiency Family History Family History Father Diabetes mellitus Mother OCD (obsessive compulsive disorder) EITAN (generalized anxiety disorder) HTN (hypertension) Cancer Cervical cancer Family/Other FH: mental illness Maternal Grandmother EITAN (generalized anxiety disorder) Glaucoma Mental health disorder Maternal Grandfather Alzheimer disease Maternal Aunt Hypothyroidism Mental health disorder Paternal Grandmother Unknown family medical history Paternal Grandfather Unknown family medical history Sister Hypothyroidism Paternal Aunt Substance use disorder Maternal Uncle Substance use disorder Surgical History Surgical History History of nasal surgery History of rotator cuff surgery Hx of colonoscopy Miscarriage Social History Social History Housing: Apartment Alcohol intake: never Patient Tobacco Use Status: Former Tobacco user Cigarettes Per Day: 20 Years Smoked: 3 e-Cigarette/Vaping Use: Never Used Use of substances other than those prescribed or required for medical reasons: No Are you DNR?: No Advance Directives: No Advance Directives Information Provided: Yes Recently lost weight without trying: Yes Nutrition Risks: No Nutritional Risk Current occupational status: disabled Meds Allergies Allergy/AdvReac Type Severity Reaction Status Date / Time cat dander [CAT DANDER] Allergy Mild EYES- Verified 12/13/21 11:47 TEAR, ITCHY, face swells dog dander [DOG DANDER] Allergy Mild EYES- Verified 12/13/21 11:47 TEAR, ITCHY, hives duloxetine [From CYMBALTA] AdvReac Intermediate VAGINAL Verified 12/13/21 11:47 BLEEDING Home Medications Medication Instructions Recorded Confirmed Last Taken Type hydroxyzine HCl 50 mg tablet 50 mg PO 08/31/20 12/22/21 Unknown History oxcarbazepine 150 mg tablet 150 mg PO BEDTIME tab 10/13/20 12/22/21 Unknown History aripiprazole 5 mg tablet 5 mg PO DAILY 01/06/21 12/22/21 Unknown History trazodone 100 mg tablet 100 mg PO BEDTIME tab 01/11/21 12/22/21 Unknown History vilazodone 40 mg tablet 40 mg PO DAILY 01/11/21 12/22/21 Unknown History clonidine HCl 0.1 mg tablet 0.1 mg PO BEDTIME 04/29/21 12/22/21 Unknown History dextroamphetamine-amphetamine 15 15 mg PO DAILY 04/29/21 12/22/21 Unknown History mg tablet (Adderall) hyoscyamine sulfate 0.125 mg 0.125 mg PO QID 11/01/21 12/22/21 Unknown History sublingual tablet Exam Exam Date and Time: December 27, 2021 1047 Pertinent Lab Results Pertinent Lab Results: Laboratory Tests 12/24/21 13:35 Blood Type O Positive Antibody Screen NEGATIVE Laboratory Tests 12/24/21 12/24/21 13:35 13:35 WBC 14.5 H Hgb 13.8 Hct 42.3 Plt Count 319 Sodium 137 Potassium 4.7 Chloride 102 Carbon Dioxide 29 BUN 19 H Creatinine 1.08 Narrative Narrative: EKG 10/2021 Vent. Rate : 070 BPM ? ? Atrial Rate : 070 BPM ?? P-R Int : 172 ms? QRS Dur : 062 ms ? ? QT Int : 412 ms ? ? ? P-R-T Axes : 013 006 012 degrees ?? QTc Int : 444 ms ? Normal sinus rhythm Normal ECG When compared with ECG of 08-SEP-2016 09:25, No significant change was found Assessment and Plan Assessment Anesthesia Assessment: Chart Reviewed Documented by User: Agnieszka Rios MD 12/28/21 12:01 [facility] Active Problems Active Problems: All Active Problems (Updated 12/22/21 @ 13:51 by Oral Easley MD) Gastric ulcer (Acute) Cholelithiasis (Acute) Nausea (Acute) Sacroiliitis (Acute) Spondylosis of lumbar region without myelopathy or radiculopathy (Acute) Scoliosis (Acute) Vitamin B1 deficiency (Acute) Goiter (Acute) Low back pain (Acute) Restless leg syndrome (Acute) ADHD (attention deficit hyperactivity disorder) (Acute) Anxiety (Acute) OCD (obsessive compulsive disorder) (Acute) Hypertension (Acute) GERD (gastroesophageal reflux disease) (Acute) Vitamin D deficiency (Acute) PCOS (polycystic ovarian syndrome) (Acute) Body mass index [BMI]40.0-44.9, adult (Acute) Irritable bowel syndrome with diarrhea (Acute) Environmental and seasonal allergies (Acute) Breast cancer screening by mammogram (Acute) Dyslipidemia (Acute) Gastritis (Acute) Eczema (Acute) Oral abscess (Acute) Morbid obesity (Acute) Hirsutism (Acute) Androgenetic alopecia (Acute) Telogen effluvium (Acute) Heartburn (Acute) Degenerative disc disease, lumbar (Acute) Fibromyalgia (Acute) Bipolar disorder (Acute) Rosacea (Acute) Acquired hypothyroidism (Acute) FANNY- Sleep study just done 12/21/21. Patient not aware of results yet but result available in records- Mild FANNY- Conservative measures recommended. Trial of CPAP if symptomatic or associated comorbidities Past Medical History Medical History (Updated 12/22/21 @ 13:51 by Oral Easley MD) Acquired hypothyroidism ADHD (attention deficit hyperactivity disorder) Androgenetic alopecia Anxiety Bipolar disorder Body mass index [BMI]40.0-44.9, adult Breast cancer screening by mammogram Degenerative disc disease, lumbar Dyslipidemia Environmental and seasonal allergies Fibromyalgia Gastritis GERD (gastroesophageal reflux disease) Goiter Heartburn Hirsutism Hypertension Irritable bowel syndrome with diarrhea Morbid obesity OCD (obsessive compulsive disorder) PCOS (polycystic ovarian syndrome) Restless leg syndrome Rosacea Sacroiliitis Scoliosis 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 Vitamin D deficiency Family History Family History Father Diabetes mellitus Mother OCD (obsessive compulsive disorder) EITAN (generalized anxiety disorder) HTN (hypertension) Cancer Cervical cancer Family/Other FH: mental illness Maternal Grandmother EITAN (generalized anxiety disorder) Glaucoma Mental health disorder Maternal Grandfather Alzheimer disease Maternal Aunt Hypothyroidism Mental health disorder Paternal Grandmother Unknown family medical history Paternal Grandfather Unknown family medical history Sister Hypothyroidism Paternal Aunt Substance use disorder Maternal Uncle Substance use disorder Family history of problems with anesthesia: No Surgical History Surgical History History of nasal surgery History of rotator cuff surgery Hx of colonoscopy Miscarriage History of Problems with Anesthesia: No Social History Social History Housing: Apartment Alcohol intake: never Patient Tobacco Use Status: Former Tobacco user Cigarettes Per Day: 20 Years Smoked: 3 e-Cigarette/Vaping Use: Never Used Use of substances other than those prescribed or required for medical reasons: No Are you DNR?: No Advance Directives: No Advance Directives Information Provided: Yes Recently lost weight without trying: Yes Nutrition Risks: No Nutritional Risk Current occupational status: disabled Meds Allergies Allergy/AdvReac Type Severity Reaction Status Date / Time cat dander [CAT DANDER] Allergy Mild EYES- Verified 12/13/21 11:47 TEAR, ITCHY, face swells dog dander [DOG DANDER] Allergy Mild EYES- Verified 12/13/21 11:47 TEAR, ITCHY, hives duloxetine [From CYMBALTA] AdvReac Intermediate VAGINAL Verified 12/13/21 11:47 BLEEDING Home Medications Medication Instructions Recorded Confirmed Last Taken Type hydroxyzine HCl 50 mg tablet 50 mg PO 08/31/20 12/22/21 Unknown History oxcarbazepine 150 mg tablet 150 mg PO BEDTIME tab 10/13/20 12/22/21 Unknown History aripiprazole 5 mg tablet 5 mg PO DAILY 01/06/21 12/22/21 Unknown History trazodone 100 mg tablet 100 mg PO BEDTIME tab 01/11/21 12/22/21 Unknown History vilazodone 40 mg tablet 40 mg PO DAILY 01/11/21 12/22/21 Unknown History clonidine HCl 0.1 mg tablet 0.1 mg PO BEDTIME 04/29/21 12/22/21 Unknown History dextroamphetamine-amphetamine 15 15 mg PO DAILY 04/29/21 12/22/21 Unknown History mg tablet (Adderall) hyoscyamine sulfate 0.125 mg 0.125 mg PO QID 11/01/21 12/22/21 Unknown History sublingual tablet Exam Height,Weight and Vital Signs: Height 5 ft 3 in Weight 98.883 kg Vital Signs Temp Pulse Resp BP Pulse Ox 12/28/21 11:13 97 F 83 18 128/84 98 Pertinent Lab Results Pertinent Lab Results: Laboratory Tests 12/24/21 13:35 Blood Type O Positive Antibody Screen NEGATIVE Laboratory Tests 12/24/21 12/24/21 13:35 13:35 WBC 14.5 H Hgb 13.8 Hct 42.3 Plt Count 319 Sodium 137 Potassium 4.7 Chloride 102 Carbon Dioxide 29 BUN 19 H Creatinine 1.08 Laboratory Results - last 24 hr 02/07/22 02/07/22 02/08/22 12:25 14:40 11:10 Urine Test NEGATIVE COVID-19 (TERRA) Cancelled Negative COVID-19 Clin Com Cancelled See Note Airway Mallampati Class: II TM Dist: >3cm Neck ROM: Full Loose/Missing/Broken Teeth: Yes (Chipped back top left) Heart: RRR Lungs: CTAB Assessment and Plan Assessment Anesthesia Assessment: Anesthesia Plan Discussed Final Anesthetic Review Family History of Problems with Anesthesia: No History of Problems with Anesthesia: No NPO: Yes ASA Class: III Final Preanesthetic Review: No Changes in Pt Med Stat, Meds/Allgs Chart Reviewed, Consent Obtained/Reviewed and Anes Risks/Benef Reviewed Patient Risk: Intermediate Procedure Risk: Intermediate Assessment/Block/Sedation in SS: Assess/Block/Sedation-SS Anesthetic Plan Anesthetic Plan: GA Disposition: Standard PACU
[2021-12-27 15:04] LABS: COVID-19 Test Negative (Negative)
[2021-12-28] VITALS (9 sets, daily range): BP systolic 117–138; BP diastolic 75–84; PULSE 72–87; RESP 16–20; TEMP 36.1–36.8; O2SAT 96–99; BMI 38.6
[2021-12-28 11:31] LABS: UPreg QC Valid YES; Urine Pregnancy NEGATIVE (NEGATIVE)
[2021-12-28] MEDS: Lactated Ringers 1,000 ML 80 ML IVCONT (11:49)
--- NOTE | 2021-12-28 12:59 | PM.OP ---
Brief Operative Note Date of Service: 12/28/21 Pre-op diagnosis: Symptomatic cholelithiasis and possible gastric ulcer Post-op diagnosis: same (Normal stomach) Procedure: PROCEDURE DATE: 12/28/2021 PREOPERATIVE DIAGNOSIS: Symptomatic cholelithiasis, possible gastric ulcer, morbid obesity with a body mass index of 41.4 kg/sq. meters and comorbidities including hypertension, hyperlipidemia, hypothyroidism, GERD, PCOS, ADHD, restless leg syndrome, insomnia, PTSD, fibromyalgia POSTOPERATIVE DIAGNOSIS: Same as above. Normal stomach PROCEDURE: Laparoscopic cholecystectomy and upper endoscopy Surgeon: Richard Easley M.D., Ph.D. Director Of Manufacturing: Obdulia Santacruz PA-C Anesthesia: General endotracheal anesthesia Estimated blood loss: Minimal FINDINGS AND PROCEDURE: OPERATIVE INDICATIONS: The patient is a 41 year old female known to me who was initially seen in my office for evaluation for refractory morbid obesity. During the preoperative workup, the patient was found to have cholelithiasis which appears to be symptomatic. Additionally, the UGI was suggestive of a possible gastric ulcer. We recommended cholecystectomy with upper endoscopy before the sleeve gastrectomy to rule out an ulcer and due to the higher risks of acute cholecystitis after the bariatric surgery, as a result of the rapid weight loss. Risks and complications of the surgery were discussed with the patient in advance, particularly the postoperative bleeding, infection, DVT or PE, bile leak, major bile duct injury that may require additional surgical intervention, cardiac, pulmonary or renal complications among others. The patient understood the risks and was in agreement with the plan. PROCEDURE: After informed consent was obtained by the patient, the patient was transferred to the Operating Room and was placed in the supine position. The patient was given preoperative antibiotics and after successful induction of general anesthesia pneumatic compression devices were placed. ? PLEASE REVIEW TO INCLUDE THIS PARAGRAPH An upper endoscopy was performed next, the oropharynx and esophagus appeared within the normal limits. There was no hiatal hernia. The stomach was entered, appeared to be of normal size, there was no gastritis or ulcer. At that point the stomach and esophagus was decompressed and the scope was withdrawn from the patient's mouth. The patient was then prepped and draped in the usual sterile manner and abdominal access was established with the Nathalia port. The abdomen was insufflated with C02 to a pressure of 15 mmHg. A 5 mm Versi-step port was placed, slightly to the right and superior from the umbilicus. The 5 mm camera was introduced. We inspected the area where the port had been placed and there was no injury. The patient was then placed initially in a steep reverse Trendelenburg position and three additional ports were placed, specifically a 12 mm Versi-step port just to the right of the midline below the xiphoid process and two 5 mm Versi-step ports at the right upper quadrant and right flank. At that point the patient was placed in a steep reverse Trendelenburg position tilted to the left side. The gallbladder was retracted cephalad and laterally. The peritoneal attachments of the gallbladder at the triangle of Calot posteriorly and anteriorly were taken down. The cystic duct and artery were both seen. They were completely dissected free, skeletonized all the way to the infundibulum of the gallbladder . In a similar fashion we also cleaned the liver bed just behind the cystic artery to make sure there was no additional structures in this area. Once we confirmed that both structures were entering into the gallbladder and there were no other structures in the area, the cystic duct was clipped with two clips proximally, one distally and the cystic artery with one clip roximally and one distally and were cut in-between. There was an additional band that probably was not a vessel but an additional clip was applied to it as well. We then using the electrocautery we slowly took down the gallbladder from the liver bed. Small areas of bleeding from the liver parenchyma were controlled with the cautery. After the gallbladder was completely detached from the liver bed, it was placed in an EndoCatch bag and was removed without difficulty from the xiphoid port. We then inspected the clips at the cystic duct and artery and were both in place. There was no active bleeding from the liver bed. We thoroughly irrigated the right upper quadrant and we removed all fluid until clear. At that point the patient was placed in supine position, we deflated the abdomen and we removed all ports under direct vision and no bleeding was noted from any of the port sites. The fascia of the 12 mm port was closed using a #1 Polysorb suture. 100cc 0.25% Marcaine and 10 mg of Dexamehtasone were used to infiltrate the fascial closure as well as all skin incisions. The wounds were irrigated with saline mixed with antibiotic solution and then the skin was closed with 4-0 Maxon subcuticular sutures antibiotic-coated. Steri-strips and OpSites were used to cover all incisions. The patient extubated and was transferred in stable condition to the Recovery Room for further care. I was present and performed all steps of the procedure. Ms. Payneson was the materials assistant. There were no residents to assist with this case. Richard Easley M.D., Ph.D., F.A.C.S. Surgeon: Oral Easley MD Anesthesia: GETA, local and other (TAP block) Was an Director Of Manufacturing used for this Procedure?: No Director Of Manufacturing: Obdulia Santacruz Estimated blood loss (mL): 10 Urine output (mL): 0 (No Aguilar to record) Pathology: other (Gallbladder) Condition: stable Disposition: PACU
== END 2021-12-28 17:05 | disposition home or self-care (01) ==
PROVIDERS: Nurse Practitioner; Physician Assistant Surgical; PCP Internal Medicine; Visit Provider Surgery
PROC: 0FT44ZZ Resection of Gallbladder, Percutaneous Endoscopic Approach (ICD-10-PCS; CPT 47562; principal; 2021-12-28 12:50)
PROC: 0DJ08ZZ Inspection of Upper Intestinal Tract, Via Natural or Artificial Opening Endoscopic (ICD-10-PCS; CPT 43235; 2021-12-28 12:50)
DX: K80.10 Calculus of gallbladder with chronic cholecystitis without obstruction (principal); K21.9 Gastro-esophageal reflux disease without esophagitis; E66.01 Morbid (severe) obesity due to excess calories; Z68.39 Body mass index [BMI] 39.0-39.9, adult; I10 Essential (primary) hypertension; E78.5 Hyperlipidemia, unspecified; M79.7 Fibromyalgia; E03.9 Hypothyroidism, unspecified; E28.2 Polycystic ovarian syndrome; F43.10 Post-traumatic stress disorder, unspecified; F90.9 Attention-deficit hyperactivity disorder, unspecified type; Z88.8 Allergy status to other drugs, medicaments and biological substances; Z79.899 Other long term (current) drug therapy; Z87.891 Personal history of nicotine dependence
CPT/HCPCS: 47562; 43235; 81025; 86850; 86900; 86901; 87635; 88304; J0131; J0690; J1100; J1170; J2250; J2405; J3010

== ENCOUNTER → 2022-01-03 07:21 | Outpatient (BNVA) | payer OTHER, SELFPAY | PROVIDERS: PCP Internal Medicine; Referring Provider Internal Medicine; Visit Provider Surgery | DX: Z98.84 Bariatric surgery status (principal); K59.00 Constipation, unspecified; K80.80 Other cholelithiasis without obstruction | CPT/HCPCS: 99212 ==

== ENCOUNTER → 2022-01-07 08:23 | Outpatient (BNVA) | payer OTHER, SELFPAY | PROVIDERS: PCP Internal Medicine; Referring Provider Surgery; Visit Provider Dietitian, Registered ==

== ENCOUNTER → 2022-01-19 08:14 | Outpatient (BNVA) | payer OTHER, SELFPAY | PROVIDERS: PCP Internal Medicine; Visit Provider Surgery ==

== ENCOUNTER → 2022-01-20 07:42 | Outpatient (BNVA) | payer OTHER, SELFPAY | PROVIDERS: PCP Internal Medicine; Referring Provider Surgery; Visit Provider Dietitian, Registered | DX: E66.9 Obesity, unspecified (principal); Z68.37 Body mass index [BMI] 37.0-37.9, adult | CPT/HCPCS: 97803 ==

== ENCOUNTER → 2022-02-04 08:19 | Outpatient (BNVA) | payer OTHER, SELFPAY | PROVIDERS: PCP Internal Medicine; Visit Provider Surgery | DX: Z13.89 Encounter for screening for other disorder (principal) ==

== ENCOUNTER → 2022-02-11 08:56 | Outpatient (BNVA) | payer OTHER, SELFPAY | PROVIDERS: PCP Internal Medicine; Referring Provider Internal Medicine; Visit Provider Surgery | DX: Z13.89 Encounter for screening for other disorder (principal) ==

== ENCOUNTER 2022-02-16 08:18 | Inpatient (IN) | payer OTHER, SELFPAY ==
[2022-02-03 15:32] VITALS: BMI 36.6
--- NOTE | 2022-02-07 13:16 | P.CONAN_ITS ---
Documented by User: Emerald Aguilar NP 02/15/22 08:18 HPI - Anesthesia Eval Consult details Narrative: (labs pending) 41yo F for Gastrectomy Sleeve,EGD,possible diaphragmatic hernia,possible ventral hernia,possible open s/p lap gigi, egd 12/2021 with ETT 7 Pt describes chest pressure ~5days post op, feeling like she can't take a deep breath, not related to activity. No issues since. Able to exercise >10mets without CP/SOB now. [facility] Active Problems Active Problems: All Active Problems (Updated 02/04/22 @ 13:45 by Oral Easley MD) BMI 36.0-36.9,adult (Acute) Oral abscess (Acute) Eczema (Acute) Low back pain (Acute) Vitamin B1 deficiency (Acute) Nausea (Acute) Cholelithiasis (Acute) Gastric ulcer (Acute) Constipation (Acute) Obesity (Acute) BMI 37.0-37.9, adult (Acute) Hx of cholecystectomy (Acute) Sacroiliitis (Acute) Spondylosis of lumbar region without myelopathy or radiculopathy (Acute) Scoliosis (Acute) Goiter (Acute) Restless leg syndrome (Acute) ADHD (attention deficit hyperactivity disorder) (Acute) Anxiety (Acute) OCD (obsessive compulsive disorder) (Acute) Hypertension (Acute) GERD (gastroesophageal reflux disease) (Acute) Vitamin D deficiency (Acute) PCOS (polycystic ovarian syndrome) (Acute) Body mass index [BMI]40.0-44.9, adult (Acute) Irritable bowel syndrome with diarrhea (Acute) Environmental and seasonal allergies (Acute) Breast cancer screening by mammogram (Acute) Dyslipidemia (Acute) Gastritis (Acute) Morbid obesity (Acute) Hirsutism (Acute) Androgenetic alopecia (Acute) Telogen effluvium (Acute) Heartburn (Acute) Degenerative disc disease, lumbar (Acute) Fibromyalgia (Acute) Bipolar disorder (Acute) Rosacea (Acute) Acquired hypothyroidism (Acute) Past Medical History Medical History (Updated 02/04/22 @ 13:45 by Oral Easley MD) Acquired hypothyroidism ADHD (attention deficit hyperactivity disorder) Androgenetic alopecia Anxiety Bipolar disorder Body mass index [BMI]40.0-44.9, adult Breast cancer screening by mammogram Degenerative disc disease, lumbar Dyslipidemia Environmental and seasonal allergies Fibromyalgia Gastritis GERD (gastroesophageal reflux disease) Goiter Heartburn Hirsutism Hypertension Irritable bowel syndrome with diarrhea Morbid obesity OCD (obsessive compulsive disorder) PCOS (polycystic ovarian syndrome) PONV (postoperative nausea and vomiting) Restless leg syndrome Rosacea Sacroiliitis Scoliosis 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 Vitamin D deficiency Family History Family History Father Diabetes mellitus Mother OCD (obsessive compulsive disorder) EITAN (generalized anxiety disorder) HTN (hypertension) Cancer Cervical cancer Family/Other FH: mental illness Maternal Grandmother EITAN (generalized anxiety disorder) Glaucoma Mental health disorder Maternal Grandfather Alzheimer disease Maternal Aunt Hypothyroidism Mental health disorder Paternal Grandmother Unknown family medical history Paternal Grandfather Unknown family medical history Sister Hypothyroidism Paternal Aunt Substance use disorder Maternal Uncle Substance use disorder Family history of problems with anesthesia: No Surgical History Surgical History (Updated 02/03/22 @ 15:36 by Tahmina Rendon RN) History of nasal surgery History of rotator cuff surgery Hx of cholecystectomy Hx of colonoscopy Miscarriage History of Problems with Anesthesia: Yes (PONV) Social History Social History Household Members Other:: brother Housing: Apartment Are you a primary healthcare financial analyst to a significant other at home: No Do you presently have visiting nurse or other home services: No Alcohol intake: never Patient Tobacco Use Status: Former Tobacco user Quit Date: 2011 Tobacco use type: Cigarette Cigarettes Per Day: 20 Years Smoked: 3 e-Cigarette/Vaping Use: Never Used Use of substances other than those prescribed or required for medical reasons: No Have you been hit, kicked, punched, or otherwise hurt by someone within the past year? If so, by whom?: No Are you DNR?: No Advance Directives: No Advance Directives Information Provided: Yes Advance Directives on File: No Recently lost weight without trying: No Patient : No FDLMP: 01/26/2022 : No Poor oral hygiene: No Current occupational status: disabled Meds Allergies Allergy/AdvReac Type Severity Reaction Status Date / Time cat dander [CAT DANDER] Allergy Mild EYES- Verified 02/04/22 13:39 TEAR, ITCHY, face swells dog dander [DOG DANDER] Allergy Mild EYES- Verified 02/04/22 13:39 TEAR, ITCHY, hives duloxetine [From CYMBALTA] AdvReac Intermediate VAGINAL Verified 02/04/22 13:39 BLEEDING Home Medications Medication Instructions Recorded Confirmed Last Taken Type hydroxyzine HCl 50 mg tablet 50 mg PO BID PRN 08/31/20 02/16/22 Unknown History oxcarbazepine 150 mg tablet 450 mg PO BEDTIME tab 10/13/20 02/16/22 Unknown History aripiprazole 5 mg tablet 5 mg PO DAILY 01/06/21 02/04/22 Unknown History vilazodone 40 mg tablet 40 mg PO DAILY 01/11/21 02/04/22 Unknown History trazodone 100 mg tablet 50 mg PO BEDTIME tab 01/03/22 02/04/22 Unknown History clonidine HCl 0.1 mg tablet 1 tab PO BID PRN 02/16/22 02/16/22 Unknown History dextroamphetamine-amphetamine ER 1 cap PO QAM 02/16/22 02/16/22 Unknown History 20 mg 24hr capsule,extend release (Adderall XR) ivermectin 1 % topical cream 1 appl TOPICAL DAILY 02/16/22 02/16/22 Unknown History (Soolantra) pregabalin 150 mg capsule (Lyrica) 1 cap PO TID 02/16/22 02/16/22 Unknown History spironolactone 100 mg tablet 1 tab DAILY 02/16/22 02/16/22 Unknown History Exam Exam Date and Time: February 07, 2022 1316 Height,Weight and Vital Signs: Height 5 ft 3 in Weight 93.894 kg Pertinent Lab Results Pertinent Lab Results: Lab Results 02/09/22 02/09/22 02/09/22 Range/Units 09:45 09:45 09:45 WBC 7.7 (4.8-10.8) X10*3/uL RBC 4.49 (4.20-5.50) X10*6/uL Hgb 13.8 (12.0-16.0) g/dl Hct 41.3 (37.0-47.0) % MCV 92.0 (80.0-98.0) fL MCH 30.7 (27.0-33.0) pg MCHC 33.4 (31.0-35.0) g/dl RDW 12.3 (11.0-16.0) % Plt Count 260 (160-400) X10*3/uL MPV 10.8 (9.4-12.3) fL Immature Gran % (Auto) 0.1 (0.0-0.4) % Neut % (Auto) 54.6 (45-73) % Lymph % (Auto) 29.4 (20-40) % Love % (Auto) 9.8 (2-11) % Eos % (Auto) 4.3 H (0-4) % Baso % (Auto) 1.8 (0-2) % Lymph # (Auto) 2.3 (1.2-4.9) X10*3/uL Love # (Auto) 0.8 (0.1-1.2) X10*3/uL Eos # (Auto) 0.3 (0.0-0.4) X10*3/uL Baso # (Auto) 0.1 (0.0-0.2) X10*3/uL Abs Immat Gran (auto) 0.01 (0.00-0.03) X10*3/uL Absolute Neuts (auto) 4.2 (2.0-8.3) x10*3/uL Absolute Nucleated RBC 0.000 (0.0-0.012) X10*3/uL Nucleated RBC % (auto) 0.0 (0.0-0.2) /100WBC PT 14.4 H (9.9-13.0) SEC INR 1.3 H (0.9-1.1) APTT 41.0 H (24.1-38.0) SEC Sodium 137 (135-145) mmol/L Potassium 4.3 (3.3-5.1) mmol/L Chloride 102 (96-108) mmol/L Carbon Dioxide 26 (22-29) mmol/L Anion Gap 13 (12-20) BUN 18 H (9-16) mg/dL Creatinine 1.01 (0.5-1.4) mg/dL Estim Creat Clear Calc 80.6 Estimated GFR > 60 Random Glucose 90 (60-115) mg/dL Estimat Average Glucose mg/dL Hemoglobin A1c % % Insulin Level 8 (2-29) uU/mL Calcium 10.0 (8.4-10.2) mg/dL Total Bilirubin 0.5 (0.0-1.0) mg/dL AST 17 (5-31) U/L ALT 20 (0-31) U/L Alkaline Phosphatase 72 (39-117) U/L C-Reactive Protein 0.39 (< or = 0.50) mg/dL Total Protein 6.8 (6.5-8.0) g/dL Albumin 4.4 (3.5-5.0) g/dL Triglycerides 99 mg/dL Cholesterol 209 mg/dL LDL Cholesterol, Calc 147 mg/dl HDL Cholesterol 43 mg/dL TSH 1.41 (0.32-4.0) uIU/mL Blood Type Antibody Screen 02/09/22 02/09/22 Range/Units 09:45 09:45 WBC (4.8-10.8) X10*3/uL RBC (4.20-5.50) X10*6/uL Hgb (12.0-16.0) g/dl Hct (37.0-47.0) % MCV (80.0-98.0) fL MCH (27.0-33.0) pg MCHC (31.0-35.0) g/dl RDW (11.0-16.0) % Plt Count (160-400) X10*3/uL MPV (9.4-12.3) fL Immature Gran % (Auto) (0.0-0.4) % Neut % (Auto) (45-73) % Lymph % (Auto) (20-40) % Love % (Auto) (2-11) % Eos % (Auto) (0-4) % Baso % (Auto) (0-2) % Lymph # (Auto) (1.2-4.9) X10*3/uL Love # (Auto) (0.1-1.2) X10*3/uL Eos # (Auto) (0.0-0.4) X10*3/uL Baso # (Auto) (0.0-0.2) X10*3/uL Abs Immat Gran (auto) (0.00-0.03) X10*3/uL Absolute Neuts (auto) (2.0-8.3) x10*3/uL Absolute Nucleated RBC (0.0-0.012) X10*3/uL Nucleated RBC % (auto) (0.0-0.2) /100WBC PT (9.9-13.0) SEC INR (0.9-1.1) APTT (24.1-38.0) SEC Sodium (135-145) mmol/L Potassium (3.3-5.1) mmol/L Chloride (96-108) mmol/L Carbon Dioxide (22-29) mmol/L Anion Gap (12-20) BUN (9-16) mg/dL Creatinine (0.5-1.4) mg/dL Estim Creat Clear Calc Estimated GFR Random Glucose (60-115) mg/dL Estimat Average Glucose 105 mg/dL Hemoglobin A1c % 5.3 % Insulin Level (2-29) uU/mL Calcium (8.4-10.2) mg/dL Total Bilirubin (0.0-1.0) mg/dL AST (5-31) U/L ALT (0-31) U/L Alkaline Phosphatase (39-117) U/L C-Reactive Protein (< or = 0.50) mg/dL Total Protein (6.5-8.0) g/dL Albumin (3.5-5.0) g/dL Triglycerides mg/dL Cholesterol mg/dL LDL Cholesterol, Calc mg/dl HDL Cholesterol mg/dL TSH (0.32-4.0) uIU/mL Blood Type O Positive Antibody Screen NEGATIVE Narrative Narrative: EKG 10/2021 Vent. Rate : 070 BPM ? ? Atrial Rate : 070 BPM ?? P-R Int : 172 ms? QRS Dur : 062 ms ? ? QT Int : 412 ms ? ? ? P-R-T Axes : 013 006 012 degrees ?? QTc Int : 444 ms ? Normal sinus rhythm Normal ECG When compared with ECG of 08-SEP-2016 09:25, No significant change was found Assessment and Plan Assessment Anesthesia Assessment: Chart Reviewed Final Anesthetic Review Family History of Problems with Anesthesia: No History of Problems with Anesthesia: Yes (PONV) Documented by User: Bear Vegas MD 02/16/22 09:06 [facility] Past Medical History Medical History (Updated 02/04/22 @ 13:45 by Oral Easley MD) Acquired hypothyroidism ADHD (attention deficit hyperactivity disorder) Androgenetic alopecia Anxiety Bipolar disorder Body mass index [BMI]40.0-44.9, adult Breast cancer screening by mammogram Degenerative disc disease, lumbar Dyslipidemia Environmental and seasonal allergies Fibromyalgia Gastritis GERD (gastroesophageal reflux disease) Goiter Heartburn Hirsutism Hypertension Irritable bowel syndrome with diarrhea Morbid obesity OCD (obsessive compulsive disorder) PCOS (polycystic ovarian syndrome) PONV (postoperative nausea and vomiting) Restless leg syndrome Rosacea Sacroiliitis Scoliosis 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 Vitamin D deficiency Family History Family History Father Diabetes mellitus Mother OCD (obsessive compulsive disorder) EITAN (generalized anxiety disorder) HTN (hypertension) Cancer Cervical cancer Family/Other FH: mental illness Maternal Grandmother EITAN (generalized anxiety disorder) Glaucoma Mental health disorder Maternal Grandfather Alzheimer disease Maternal Aunt Hypothyroidism Mental health disorder Paternal Grandmother Unknown family medical history Paternal Grandfather Unknown family medical history Sister Hypothyroidism Paternal Aunt Substance use disorder Maternal Uncle Substance use disorder Surgical History Surgical History (Updated 02/03/22 @ 15:36 by Tahmina Rendon RN) History of nasal surgery History of rotator cuff surgery Hx of cholecystectomy Hx of colonoscopy Miscarriage History of Problems with Anesthesia: Yes Social History Social History Household Members Other:: brother Housing: Apartment Are you a primary healthcare financial analyst to a significant other at home: No Do you presently have visiting nurse or other home services: No Alcohol intake: never Patient Tobacco Use Status: Former Tobacco user Quit Date: 2011 Tobacco use type: Cigarette Cigarettes Per Day: 20 Years Smoked: 3 e-Cigarette/Vaping Use: Never Used Use of substances other than those prescribed or required for medical reasons: No Have you been hit, kicked, punched, or otherwise hurt by someone within the past year? If so, by whom?: No Are you DNR?: No Advance Directives: No Advance Directives Information Provided: Yes Advance Directives on File: No Recently lost weight without trying: No Patient : No FDLMP: 01/26/2022 : No Poor oral hygiene: No Current occupational status: disabled Meds Allergies Allergy/AdvReac Type Severity Reaction Status Date / Time cat dander [CAT DANDER] Allergy Mild EYES- Verified 02/04/22 13:39 TEAR, ITCHY, face swells dog dander [DOG DANDER] Allergy Mild EYES- Verified 02/04/22 13:39 TEAR, ITCHY, hives duloxetine [From CYMBALTA] AdvReac Intermediate VAGINAL Verified 02/04/22 13:39 BLEEDING Home Medications Medication Instructions Recorded Confirmed Last Taken Type hydroxyzine HCl 50 mg tablet 50 mg PO BID PRN 08/31/20 02/16/22 Unknown History oxcarbazepine 150 mg tablet 450 mg PO BEDTIME tab 10/13/20 02/16/22 Unknown History aripiprazole 5 mg tablet 5 mg PO DAILY 01/06/21 02/04/22 Unknown History vilazodone 40 mg tablet 40 mg PO DAILY 01/11/21 02/04/22 Unknown History trazodone 100 mg tablet 50 mg PO BEDTIME tab 01/03/22 02/04/22 Unknown History clonidine HCl 0.1 mg tablet 1 tab PO BID PRN 02/16/22 02/16/22 Unknown History dextroamphetamine-amphetamine ER 1 cap PO QAM 02/16/22 02/16/22 Unknown History 20 mg 24hr capsule,extend release (Adderall XR) ivermectin 1 % topical cream 1 appl TOPICAL DAILY 02/16/22 02/16/22 Unknown History (Soolantra) pregabalin 150 mg capsule (Lyrica) 1 cap PO TID 02/16/22 02/16/22 Unknown History spironolactone 100 mg tablet 1 tab DAILY 02/16/22 02/16/22 Unknown History Exam Airway Mallampati Class: III TM Dist: >3cm Neck ROM: Full Assessment and Plan Assessment Anesthesia Assessment: Anesthesia Plan Discussed Final Anesthetic Review History of Problems with Anesthesia: Yes NPO: Yes ASA Class: III Final Preanesthetic Review: No Changes in Pt Med Stat, Meds/Allgs Chart Reviewed, Consent Obtained/Reviewed and Anes Risks/Benef Reviewed Patient Risk: Intermediate Procedure Risk: Intermediate Anesthetic Plan Anesthetic Plan: GA Disposition: Standard PACU
[2022-02-09 09:51] LABS: MANUAL DIFF FLAG NO
[2022-02-09 10:05] LABS: Basophils Absolute Auto 0.1 X10*3/uL (0.0-0.2); Basophils Percent Auto 1.8 % (0-2); Eosinophils Absolute Auto 0.3 X10*3/uL (0.0-0.4); Eosinophils Percent Auto 4.3 % (0-4); Hematocrit 41.3 % (37.0-47.0); Hemoglobin 13.8 g/dl (12.0-16.0); Imm Gran Abs Auto 0.01 X10*3/uL (0.00-0.03); Imm Gran Pct Auto 0.1 % (0.0-0.4); Lymphocytes Absolute Auto 2.3 X10*3/uL (1.2-4.9); Lymphocytes Percent Auto 29.4 % (20-40); Mean Corpuscular HGB Conc 33.4 g/dl (31.0-35.0); Mean Corpuscular Hemoglobin 30.7 pg (27.0-33.0); Mean Platelet Volume 10.8 fL (9.4-12.3); Monocytes Absolute Auto 0.8 X10*3/uL (0.1-1.2); Monocytes Percent Auto 9.8 % (2-11); Neutrophils Absolute Auto 4.2 x10*3/uL (2.0-8.3); Neutrophils Percent Auto 54.6 % (45-73); Platelet Count 260 X10*3/uL (160-400); Red Blood Count 4.49 X10*6/uL (4.20-5.50); Red Cell Distribution Width 12.3 % (11.0-16.0); White Blood Count 7.7 X10*3/uL (4.8-10.8)
[2022-02-09 10:17] LABS: INTERNATIONAL NORM RATIO 1.3 (0.9-1.1); Prothrombin Time 14.4 SEC (9.9-13.0)
[2022-02-09 10:31] LABS: Estimated Average Glucose 105 mg/dL; Hemoglobin A1c % 5.3 %
[2022-02-09 10:40] LABS: Alanine Aminotransferase 20 U/L (0-31); Albumin Level 4.4 g/dL (3.5-5.0); Alkaline Phosphatase 72 U/L (39-117); Anion Gap 13 (12-20); Aspartate Amino Transferase 17 U/L (5-31); Bilirubin Total 0.5 mg/dL (0.0-1.0); Blood Urea Nitrogen 18 mg/dL (9-16); C Reactive Protein 0.39 mg/dL (< or = 0.50); Carbon Dioxide 26 mmol/L (22-29); Chloride 102 mmol/L (96-108); Cholesterol 209 mg/dL; Creatinine Clr Calc Pharmacy 80.6; Estimated Glomerular Filt Rate > 60; Glucose Random 90 mg/dL (60-115); HDL Cholesterol 43 mg/dL; LDL Cholesterol Calculated 147 mg/dl; Potassium 4.3 mmol/L (3.3-5.1); Sodium 137 mmol/L (135-145); Total Protein 6.8 g/dL (6.5-8.0); Triglycerides 99 mg/dL
[2022-02-09 11:03] LABS: Insulin 8 uU/mL (2-29); TSH reflex Free T4 1.41 uIU/mL (0.32-4.0)
--- NOTE | 2022-02-11 23:57 | MHC.SHP ---
Pre-Procedural Eval Section A Date of Service: 02/11/22 The patient is an INPATIENT: Yes The History & Physical has been completed within 30 days and I have reviewed it.: No Section B Chief Complaint: obesity Relevant Family History (Specify if Yes): No Relevant Social History: None Present Medications: None Medical History: No relevant PMH History of Previous Operations: No relevant previous surgery Allergies: Allergies Allergy/AdvReac Type Severity Reaction Status Date / Time cat dander [CAT DANDER] Allergy Mild EYES- Verified 02/04/22 13:39 TEAR, ITCHY, face swells dog dander [DOG DANDER] Allergy Mild EYES- Verified 02/04/22 13:39 TEAR, ITCHY, hives duloxetine [From CYMBALTA] AdvReac Intermediate VAGINAL Verified 02/04/22 13:39 BLEEDING Review of Systems Sugical H&P ROS: Negative: Constitution, Cardiovascular, Respiratory, Neurological, Psychiatric, Hem-Onc, Allergic/Immunologic, Gastrointestinal, Genitourinary, Musculoskeletal, Integumentary, Endocrine and Eyes/Ears/Nose/Throat Exam Surgical H&P Exam: Normal: HEENT, Normal: Heart, Normal: Lungs, Normal: Extremities, Normal: Abdomen, Normal: Skin and Normal: Neurological Plan Diagnosis/Plan: Unchanged I have reviewed the history and physical and performed a pertinent physical examination on my patient. No changes have occurred unless specified.
[2022-02-15 13:35] LABS: COVID-19 Test Negative (Negative); IDNOW Serial# 16C4AD1C
[2022-02-16] VITALS (16 sets, daily range): BP systolic 104–158; BP diastolic 62–104; PULSE 67–96; RESP 16–20; TEMP 36.3–37; O2SAT 94–99
[2022-02-16 08:44] LABS: UPreg QC Valid YES
[2022-02-16 08:46] LABS: Urine Pregnancy NEGATIVE (NEGATIVE)
[2022-02-16] MEDS: Scopolamine 1.5 MG PATCH.TD.3 TRANSDERMA (08:47)
[2022-02-16] MEDS: Lactated Ringers 1,000 ML 999 ML IV (09:05)
[2022-02-16] MEDS: Lactated Ringers 1,000 ML 100 ML IVCONT ×2 (09:05→13:03)
--- NOTE | 2022-02-16 10:12 | PM.PNGS ---
Subjective Subjective Date of Service: 02/17/22 Interval history: Patient has mild incisional pain, but was able to ambulate and use the incentive spirometer. She is tolerating phase 1 bariatric diet Physical Exam Vital Signs: Vital Signs: Last Vital Signs Temp 97.3 F 02/16/22 08:40 Pulse 68 02/16/22 08:40 Resp 16 02/16/22 08:40 BP 104/62 02/16/22 08:40 Pulse Ox 97 02/16/22 08:40 BMI result Body Mass Index 36.6 GI: Inspection: Yes normal to inspection, Yes incision (Clean, dry and intact) and Yes obesity Extrem: Right lower extremity: normal to inspection (no calf tenderness) Left lower extremity: normal to inspection (no calf tenderness) Objective Data Active Medications Hydromorphone HCl (Hydromorphone Hcl 0.5 Mg/0.5 Ml Syringe) 0.5 mg IVPUSH Q5M PRN; Protocol PRN Reason: Pain, Severe (Pain Scale 7-10) Lactated Ringer's (Lr) 1,000 mls @ 100 mls/hr IVCONT .Q10H LUIGI Last Admin: 02/16/22 09:05 Dose: 100 mls/hr Documented by: CAROLINE Promethazine HCl 12.5 mg/ (Sodium Chloride) 50.5 mls @ 202 mls/hr IV ONCE PRN PRN Reason: Nausea and Vomiting Ondansetron HCl (Ondansetron Hcl 4 Mg/2 Ml Vial) 4 mg IVPUSH ONCE PRN PRN Reason: Nausea and Vomiting Oxycodone HCl (Oxycodone Hcl Immed Release 5 Mg Tablet) 10 mg PO ONCE PRN PRN Reason: Pain, Severe (Pain Scale 7-10) Labs CBC & Chem 7: 02/17/22 06:15 02/17/22 06:15 Labs: Laboratory Results - last 24 hr 02/15/22 02/16/22 12:55 08:30 Urine Test NEGATIVE COVID-19 (TERRA) Negative COVID-19 Clin Com See Note Procedures Date of Service Date of Service: 02/17/22 Progress Note: A&P Assessment and plan (1) Obesity: Status: Acute Assessment and Plan: s/p laparoscopic sleeve gastrectomy, lysis of adhesions and gastropexy Doing well Check am labs. If OK, will discharge home? (2) BMI 36.0-36.9,adult: Status: Acute (3) Acquired hypothyroidism: Status: Acute (4) Rosacea: Status: Acute (5) Bipolar disorder: Status: Acute (6) Fibromyalgia: Status: Acute (7) Degenerative disc disease, lumbar: Status: Acute (8) Hirsutism: Status: Acute (9) Dyslipidemia: Status: Acute (10) GERD (gastroesophageal reflux disease): Status: Acute (11) OCD (obsessive compulsive disorder): Status: Acute (12) Anxiety: Status: Acute (13) ADHD (attention deficit hyperactivity disorder): Status: Acute (14) Insomnia: Status: Acute (15) PTSD (post-traumatic stress disorder): Status: Acute (16) Status post sleeve gastrectomy: Status: Acute (17) Congenital intra-abdominal adhesions: Status: Acute Fall Risk Details Current Medications: Current Medications Hydromorphone HCl (Hydromorphone Hcl 0.5 Mg/0.5 Ml Syringe) 0.5 mg IVPUSH Q5M PRN; Protocol PRN Reason: Pain, Severe (Pain Scale 7-10) Lactated Ringer's (Lr) 1,000 mls @ 100 mls/hr IVCONT .Q10H LUIGI Last Admin: 02/16/22 09:05 Dose: 100 mls/hr Documented by: Promethazine HCl 12.5 mg/ (Sodium Chloride) 50.5 mls @ 202 mls/hr IV ONCE PRN PRN Reason: Nausea and Vomiting Ondansetron HCl (Ondansetron Hcl 4 Mg/2 Ml Vial) 4 mg IVPUSH ONCE PRN PRN Reason: Nausea and Vomiting Oxycodone HCl (Oxycodone Hcl Immed Release 5 Mg Tablet) 10 mg PO ONCE PRN PRN Reason: Pain, Severe (Pain Scale 7-10) Time Spent With Patient Time: Total time spent is greater than 50% in coordination of care (as documented) at patient's floor/unit and/or counseling patient: Quality Stroke Does the patient have a stroke diagnosis?: No VTE Prior VTE?: No VTE Risk Level:: Surgical - moderate VTE Device Contraindication: N/A - Device Ordered VTE Drug Contraindication: Treatment Not Indicated
--- NOTE | 2022-02-16 10:15 | P.BOP_ITS ---
Brief Operative Note Date of Service: 02/16/22 Pre-op diagnosis: Severe obesity with comorbidities (see below) Post-op diagnosis: same Procedure: INITIAL PATIENT BMI ON PRESENTATION AT OUR OFFICE: 41.4 kg/m2 LAST BMI BEFORE SURGERY: 36.3 kg/m2 COMORBIDITIES: hypothyroidism, sleep apnea, hyperlipidemia, GERD, hypertension, alopecia, hirsutism, insomnia, PCOS, ADHD, restless leg syndrome, Monty's, PTSD, depression, anxiety, OCD, bipolar disorder, DJD, fibromyalgia ?The patient presented to the Weight Management Program with significant obesity that was negatively impacting the patient's comorbidities as listed above.? The program is a phased program with a special focus on preoperative medical weight management to promote substantial weight loss and prepare the patients for the second phase of the program: bariatric surgery. The patient participated in an intensive weekly lifestyle ?intervention and exercise program during which the patient ?has lost between the initial office visit and the last preoperative visit 29 lbs, or 12.39% of initial actual body weight. It was deemed appropriate for the patient to now have bariatric surgery. In light of the current Covid-19 pandemic and the well documented strong association of obesity and increased risk of worse outcomes if infected with Covid-19 (REFERENCES: https://pubmed.ncbi.nlm.nih.gov/39013190/ ,? https://pubmed.ncbi.nlm.nih.gov/46899868/ ), any delay in undergoing bariatric surgery may lead to the patient's worsening health condition and increased?risk of more severe Covid-19 disease if infected. In addition a recent?study from [facility] published in [facility] on 11/15/2021 ([email or web address]) found that, among patients with obesity, substantial weight loss achieved with surgery was associated with improved outcomes of COVID-19 infection. The findings suggest that obesity can be a modifiable risk factor for the severity of COVID-19 infection. In addition, the patient met the BMI-criteria for bariatric surgery based on the BMI on initial presentation. The patient should not be penalized for achieving such weight loss because ?it is not sustainable long-term without surgical intervention and it was achieved in preparation for bariatric surgery ?under my direction and based on my published research ([email or web address] and? https://www.soard.org/article/Z2665-7991(19)63968-X/pdf ) ?that a 10% preoperative weight loss improves long-term weight loss after surgery and reduces perioperative complications.? Insurance carriers such as [facility] have endorsed my recommendations ?and have included in their policies criteria to include a 10% preoperative weight loss requirement. PROCEDURE: Esophago-gastroscopy laparoscopic lysis of adhesions, laparoscopic sleeve gastrectomy and laparoscopic gastropexy INDICATIONS: This is a 41 year-old female who was electively scheduled for laparoscopic, possibly open sleeve gastrectomy. The risks and complications of the procedure were discussed with the patient in advance, particularly the possibility of ; pulmonary embolism; staple line leak; bleeding; GERD; cardiac, pulmonary, or renal complications; as well as long-term problems such as insufficient weight loss, vitamin deficiency, strictures, or ulcers. The eduardo ent understood all the risks, and was in agreement to proceed with surgery. DESCRIPTION OF PROCEDURE: After informed consent was obtained from the patient, the patient was given preoperative antibiotics, and was transferred to the operating room. After successful induction of general anesthesia, pneumatic compression devices were placed on both lower extremities. An upper endoscopy was performed next. The oropharynx and esophagus appeared to be within normal limits. There was no diaphragmatic hernia present consistent with the findings of the preoperative upper GI. The stomach was entered. Then after all fluid and air were suctioned and the stomach was fully decompressed, the scope was withdrawn and secured in the mid esophagus. The patient was then prepped and draped in the usual sterile manner, and abdominal access was established at the right upper quadrant with the Nathalia technique. A 12 mm blunt port was inserted, and the abdomen was insufflated with CO2 to a pressure of 15 mmHg. Under direct visualization, additional ports were placed, specifically two 5 mm Versi-step ports to the left upper quadrant, and a 5 mm Versi-Step port to the right upper quadrant. 1% lidocaine plain was used to infiltrate all port sites as well as all fascia defects. Using the EndoClose suture passer device, I placed a #1 Polysorb tie across the falciform ligament in order to retract it up against the abdominal wall and prevent injury of the ligament with our instruments during the procedure. Following that, the patient was placed in a steep reverse Trendelenburg position. An additional 5 mm port was placed to the right flank for the Mediflex retractor that was used to retract the left lobe of the liver. The gastro-esophageal fat pad was opened with the ultrasonic device (Thunderbea t, Olympus) and the anterior esophagus and hiatus were exposed. The angle of His was opened with the ultrasonic device the fundus of the stomach from any diaphragmatic and splenic attachments. I then opened the gastrocolic ligament between the transverse colon and the greater curvature of the stomach with the ultrasonic device to enter the lesser sac and facilitate the ligation of the short gastric vessels. I started at a mid-point along the greater curvature and using the Thunderbeat, all short gastric vessels were divided all the way to the angle of His until the left bill was completely dissected at its entirety. I then divided the gastro-colic ligament distally to a distance of about 3-4 cm proximal to the pylorus. There were extensive congenital adhesions between the pancreas and posterior gastric wall. Those were lysed completely with the ultrasonic device. Adhesiolysis took approximately 45 min to complete. The stomach was then divided transversely with one Endo DK-45 purple, two DK- 45 orange loads and three DK-60 articulating orange loads using the AEON stapler and loads. Every effort was made that the gastric sleeve had a tubular shape and an even caliber throughout. Once the sleeve resection was completed, the staple line of the gastric sleeve was reinforced with Hemoclips. The resected stomach was retrieved without difficulty from the Nathalia port. A gastropexy was then performed in order to prevent postoperative GERD and partial gastric volvulus. Several interrupted 2.0 Surgidac sutures were placed between the sleeve's staple line and the previously divided greater omentum and gastro-colic ligament using the Endo-Stitch device. ?An upper endoscopy was performed. There was no narrowing at the GE junction. The scope was easily advanced all the way to the pylorus which was clearly visualized. There was no narrowing anywhere and the sleeve's caliber was even throughout. The sleeve's staple line was inspected and there was no evidence of ischemia, bleeding or dehiscence. At that point the gastroscope was withdrawn from the patient?s mouth while we were decompressing the bowel and the stomach from any remaining air. I looked into the lesser sac to see how the sleeve was situating and it was situating well. There was no bleeding from the staple line, spleen, or short gastric vessels. The Mediflex retractor was removed, and the undersurface of the liver was inspected and there was no bleeding. The patient was placed in supine position. I closed the fascial defect of the 12 mm port site with a figure of eight #1 Polysorb suture. Then 100 cc 0.25 % Marcaine plain with 10 mg of Dexamethasone were used to infiltrate the fascial closure as well as all skin incisions. At this point, the abdomen was deflated, all ports were removed under direct vision, and no bleeding was noted from any of the port sites. The skin incisions were irrigated with saline and were closed with 4-0 absorbable monofilament sutures. Steri-Strips and OpSites were used to cover all incisions. The patient was extubated and was transferred in stable condition to the recovery room for further care. I was present and performed all hoffmann parts of the procedure. Mr. Machado was the family medicine physician assistant. There were no residents to assist with this case. Richard Easley MD, PhD, FACS Surgeon: Oral Easley MD Anesthesia: GETA, local and other (TAP block) Was an Senior Business Process Analyst used for this Procedure?: No Senior Business Process Analyst: Guy Machado Estimated blood loss (mL): 10 IV fluids (mL): 3,000 Urine output (mL): 0 (No Aguilar to gravity) Pathology: other (Stomach) Condition: stable Disposition: PACU
[2022-02-16] MEDS: ceFAZolin Sodium/Dextrose,Iso 2 GM/50 ML PIGGYBACK IV ×2 (10:35→17:41)
[2022-02-16] MEDS: HYDROmorphone HCl 0.5 MG/0.5 ML SYRINGE IVPUSH ×2 (12:51→13:01)
--- NOTE | 2022-02-16 12:57 | P.DS_ITS ---
DS: Providers Provider Date of Service: 02/17/22 Date of admission: 02/16/22 08:18 Primary care physician: Elke Cross MD DS: Diagnosis Discharge Diagnosis (1) Obesity: Status: Acute (2) BMI 36.0-36.9,adult: Status: Acute (3) Acquired hypothyroidism: Status: Acute (4) Rosacea: Status: Acute (5) Bipolar disorder: Status: Acute (6) Fibromyalgia: Status: Acute (7) Degenerative disc disease, lumbar: Status: Acute (8) Hirsutism: Status: Acute (9) Dyslipidemia: Status: Acute (10) GERD (gastroesophageal reflux disease): Status: Acute (11) OCD (obsessive compulsive disorder): Status: Acute (12) Anxiety: Status: Acute (13) ADHD (attention deficit hyperactivity disorder): Status: Acute (14) Insomnia: Status: Acute (15) PTSD (post-traumatic stress disorder): Status: Acute (16) Status post sleeve gastrectomy: Status: Acute (17) Congenital intra-abdominal adhesions: Status: Acute DS: Summary Hospital Course Hospital Course: ADMITTING DIAGNOSIS: morbid obesity, hypothyroid, PCOS, anxiety, bipolar, fibromyalgia, GERD, restless leg, IBS, OCD ? DISCHARGE DIAGNOSIS: same, s/p laparoscopic sleeve gastrectomy ? PAST SURGICAL HISTORY: Right rotator cuff, laparoscopic cholecystectomy ? PROCEDURE: upper endoscopy, laparoscopic sleeve gastrectomy ? DISCHARGE SUMMARY: ? History of Present Illness: ? The patient is a?41 year-old woman with a BMI of?41.4 kg/m2 and associated co- morbidities as described above. The patient had extensive work-up,lost?27 lbs preoperatively and was electively scheduled for laparoscopic, possible open sleeve gastrectomy and gastropexy. Risks and complications of the surgery were discussed with the patient in advance, particularly the possibility of , pulmonary embolism, anastomotic leak, bleeding, bowel injury, GERD, cardiac, renal or pulmonary complications. The patient understood all the risks and was in agreement with the surgical plan. ? Hospital Course: ? The patient underwent an uneventful laparoscopic sleeve gastrectomy with gastropexy on the day of admission. Postoperatively, the patient was transferred to the surgical floor. The patient received IV Acetaminophen and IV dilaudid for pain control. Patient was started on bariatric phase 1 diet POD #0. On postoperative day one, the patient was feeling well without nausea, vomiting, fevers, or tachycardia. The patient had some mild incisional pain and the abdomen was soft. ? On the morning of postoperative day one, the patient was continued on 1 ounce of water or ice every half hour. During the day, the patient did fairly well, having some incisional pain, but able to ambulate adequately and to tolerate liquids well. ? Since the patient is doing well, we decided that the patient was ready to be discharged. The patient was given instructions to follow-up with me next week and to call my office for any fever over 101, persistent abdominal pain, nausea, vomiting, GERD, symptoms of DVT such as calf tenderness, or leg swelling, or pulmonary embolism such as chest pain or shortness of breath. The patient was also instructed to drink 40-60 ounces of liquids per day using the 1-ounce cups. The patient had been given prescriptions for Tylenol for pain, Zofran prn for nausea, and pantoprazole and carafate previously. The patient was encouraged to ambulate and use the incentive spirometer. The patient was allowed to shower, but no baths, and encouraged to stay active at home. All of these instructions were given to the patient personally. All questions were answered and the patient understood all instructions, the instructions were also given to the patient in print. Time Spent with Patient Time attestation: Total time spent providing and/or coordinating discharge services: Discharge coordination time: Less than 30 minutes Quality: Stroke Does the patient have a stroke diagnosis?: No Physical Exam Vital Signs: Vital Signs: Last Vital Signs Temp 97.7 F 02/16/22 12:36 Pulse 83 02/16/22 12:46 Resp 20 02/16/22 12:46 BP 145/96 H 02/16/22 12:46 Pulse Ox 97 02/16/22 12:46 BMI result Body Mass Index 36.6 DS: Data Data Completed and Pending Pending studies at discharge: Pending at discharge 02/16/22 11:47 Surgical [PTH] Routine Labs on day of discharge: Laboratory Results - last 24 hr 02/15/22 02/16/22 12:55 08:30 Urine Test NEGATIVE COVID-19 (TERRA) Negative COVID-19 Clin Com See Note Discharge Plan Discharge Patient Disposition: Home, Self-Care Discharge Diagnosis: s/p Laparoscopic sleeve gastrectomy Referrals: Elke Cross MD [Primary Care Provider] - 1 Week Discharge Medications: Continued fluticasone propionate 50 mcg/actuation spray,suspension 2 spray intranasal DAILY Qty: 16 1RF cetirizine 10 mg tablet 10 mg PO DAILY PRN (Reason: allergy symptoms) Qty: 90 1RF ivermectin [Soolantra] 1 % cream 1 appl topical DAILY 0RF dextroamphetamine-amphetamine [Adderall XR] 20 mg capsule,extended release 24hr 1 cap PO QAM 0RF Hold Instructions: unti discussed with Dr Easley ondansetron 4 mg tablet,disintegrating 4 mg PO Q12H PRN (Reason: Nausea And Vomiting) 0RF oxcarbazepine 150 mg tablet 450 mg PO BEDTIME 0RF Label Comments: pt using 50mg vilazodone 40 mg tablet 40 mg PO DAILY 0RF aripiprazole 5 mg tablet 5 mg PO DAILY 0RF levothyroxine 50 mcg tablet 50 mcg PO DAILY 30 Days Qty: 30 11RF pantoprazole 40 mg tablet,delayed release (/EC) 40 mg PO DAILY Qty: 30 2RF sucralfate 100 mg/mL suspension 10 ml PO BID Qty: 400 2RF Held spironolactone 100 mg tablet 1 tab DAILY 0RF Hold Instructions: unti discussed with Dr Easley Discontinued cholecalciferol (vitamin D3) 25 mcg (1,000 unit) capsule 25 mcg PO DAILY Qty: 30 11RF thiamine HCl (vitamin B1) 100 mg tablet 100 mg PO DAILY Qty: 30 2RF acetaminophen 650 mg tablet extended release 650 mg PO Q8H Qty: 90 1RF pregabalin [Lyrica] 150 mg capsule 150 mg PO TID Qty: 90 5RF Hold Instructions: unti discussed with Dr Easley docusate sodium [Colace] 100 mg capsule 100 mg PO DAILY Qty: 30 2RF clonidine HCl 0.1 mg tablet 1 tab PO BID PRN (Reason: Anxiety) 0RF pregabalin [Lyrica] 150 mg capsule 1 cap PO TID 0RF Hold Instructions: unti discussed with Dr Easley trazodone 50 mg tablet 1 tab PO BEDTIME PRN (Reason: Sleep) 0RF hydroxyzine HCl 50 mg tablet 50 mg PO BID PRN (Reason: Anxiety) 0RF metformin 500 mg tablet extended release 24hr 500 mg PO BID 30 Days Qty: 60 11RF Discharge Orders: Discharge Order (Routine); Ordered 02/17/22 Ordered By: Oral Easley Diet: other Activity on Discharge: No heavy lifting Stand Alone Forms: Patient Portal Discharge page Care Plan Goals: weight loss Health Concerns: obesity Plan of Treatment: No tub baths, sex or returning to work until discussed at first post op appointment. No exercise, alcohol, tobacco or illegal drug use. Continue to use incentive spirometer hourly while awake. Walk in home for 5- 10 minutes every 2 hours during the first week. Follow all instructions in the bariatric handbook and call with any questions.Tonia kebede Instructions 1. Please call your doctor or come back to the emergency room should any new symptoms arise. 2. You will receive a courtesy call from [facility] 24-48 hours after discharge. 3. Activity: abstain from alcohol, practice limited stair climbing, no bending, no driving, no exercise, no illicit substances, no lifting, no sex, no tub bath, no work. 4. Diet: continue as discussed with Dr. Easley. 5. Dressing Change/Wound Care: Your incision is covered by clear bandages and guaze underneath. If the area is tender, you may apply an ice pack for short intervals (no more than 20 minutes on, followed by at least 20 minutes off). Do not apply heat. Do not use creams, lotions, or topical antibiotics unless instructed to do so by your surgeon. These can cause infection or allergic reaction. 6. Call your doctor if: - Your temperature exceeds 101.5 F - You experience excessive pain or swelling - You have an unexpected reaction to medication - You have excessive bleeding - You experience continued vomiting/nausea - Your incision begins to separate - Your incision shows signs of infection such as increased redness, swelling, excessive pain, heat, or drainage (light blood or clear fluid is normal) 7. General instructions: No lifting greater than 5 lbs for the next 4 weeks[address] driving within 24 hours of taking narcotic pain medications. If you do not move your bowels in the next 2 days, please take milk of magnesia over the counter. Please follow the post op diet and do not advance your diet until you are seen in the office in about 2 weeks. Please walk around your home every hour or two to prevent blood clots from forming in your legs. You do not need to wake from sleeping to walk. Please sleep in a bed or couch to prevent kinking at the hips and knees. Please take your incentive spirometer (your lung seniour insight manager) home with you and use it for the next few days to prevent pneumonias. You may shower, no hot tubs, baths or swimming pools. Please call the office with any questions or concerns such as increasing abdominal pain, fever, chills, shortness of breath, chest pain, leg pain or swelling, or redness or drainage from your incisions. Please stay on stage 3 diet which includes sugar free clear liquids such as ice pops and jello and broth and crystal light. Avoid all carbonation. Please drink 3 protein shakes with at least 25-30 grams of protein daily or 3 of the Celebrate 4:1 shakes which can be purchased in our office. The Celebrate shakes have all of the bariatric vitamins you need if you consume these shakes. If you are drinking other protein shakes, you will need to purchase the Celebrate multivitamins and calcium that we provide in the office (they will provide all the vitamins you need). Please make sure you are consuming at least 40-60 ounces of water in addition to your 3 protein shakes daily. Do not hesitate to contact the office with any questions at . The patient's medical history has been reviewed and they are considered low risk for post op DVT and therefore DVT prophylaxis is not considered necessary. Travel after surgery was reviewed. The patient has not disclosed any travel plans during the first 30 days after surgery and they have been advised that within the first 30 days after surgery any bus, plane, train or car travel over 2 hours in duration is contraindicated due to the possibility of developing blood clots from immobility. Any travel, needs to include periods of ambulation of 10 minutes in duration every 2 hours.? The patient was instructed to discuss any plans for travel during this period with their bariatric surgeon. Assessment: stable s/p laparoscopic sleeve gastrectomy Discharge Date/Time: 02/17/22 10:28
[2022-02-16] MEDS: Famotidine/PF 20 MG/2 ML VIAL IVPUSH (13:00)
[2022-02-16] MEDS: ondansetron HCL 4 MG/2 ML VIAL IVPUSH ×2 (13:48→20:40)
[2022-02-16 15:04] LABS: Hematocrit 40.7 % (37.0-47.0); Hemoglobin 13.1 g/dl (12.0-16.0)
[2022-02-16 15:27] LABS: Anion Gap 9 (12-20); Blood Urea Nitrogen 14 mg/dL (9-16); Calcium 8.9 mg/dL (8.4-10.2); Carbon Dioxide 30 mmol/L (22-29); Chloride 101 mmol/L (96-108); Creatinine Clr Calc Pharmacy 77.5; Estimated Glomerular Filt Rate 58; Glucose Random 131 mg/dL (60-115); Potassium 3.7 mmol/L (3.3-5.1); Sodium 136 mmol/L (135-145)
[2022-02-16] MEDS: OXcarbazepine 150 MG TABLET 450 MG PO (20:39)
[2022-02-16] MEDS: HYDROmorphone HCl 0.5 MG/0.5 ML SYRINGE 0.25 MG IVPUSH (20:40)
[2022-02-16] MEDS: traZODone HCL 50 MG TABLET PO (20:40)
[2022-02-17] MEDS: Lactated Ringers 1,000 ML 100 ML IVCONT ×2 (01:08→08:32)
[2022-02-17] MEDS: HYDROmorphone HCl 0.5 MG/0.5 ML SYRINGE 0.25 MG IVPUSH (01:18)
[2022-02-17] MEDS: Metoclopramide HCl 10 MG/2 ML VIAL IVPUSH (01:18)
[2022-02-17 04:00] VITALS: BP 120/70; PULSE 70; RESP 17; TEMP 36.3; O2SAT 95
[2022-02-17] MEDS: ondansetron HCL 4 MG/2 ML VIAL IVPUSH (04:43)
[2022-02-17 06:30] LABS: MANUAL DIFF FLAG NO
[2022-02-17 06:47] LABS: Basophils Percent Auto 0.2 % (0-2); Hematocrit 37.8 % (37.0-47.0); Hemoglobin 12.5 g/dl (12.0-16.0); Imm Gran Abs Auto 0.08 X10*3/uL (0.00-0.03); Imm Gran Pct Auto 0.6 % (0.0-0.4); Lymphocytes Absolute Auto 1.1 X10*3/uL (1.2-4.9); Lymphocytes Percent Auto 8.6 % (20-40); Mean Corpuscular HGB Conc 33.1 g/dl (31.0-35.0); Mean Corpuscular Hemoglobin 30.4 pg (27.0-33.0); Mean Platelet Volume 10.8 fL (9.4-12.3); Monocytes Absolute Auto 0.7 X10*3/uL (0.1-1.2); Monocytes Percent Auto 5.9 % (2-11); Neutrophils Absolute Auto 10.6 x10*3/uL (2.0-8.3); Neutrophils Percent Auto 84.7 % (45-73); Platelet Count 245 X10*3/uL (160-400); Red Blood Count 4.11 X10*6/uL (4.20-5.50); Red Cell Distribution Width 12.4 % (11.0-16.0); White Blood Count 12.5 X10*3/uL (4.8-10.8)
[2022-02-17 06:49] LABS: Anion Gap 13 (12-20); Blood Urea Nitrogen 11 mg/dL (9-16); Calcium 9.4 mg/dL (8.4-10.2); Carbon Dioxide 26 mmol/L (22-29); Chloride 102 mmol/L (96-108); Creatinine Clr Calc Pharmacy 94.7; Estimated Glomerular Filt Rate > 60; Glucose Random 112 mg/dL (60-115); Potassium 4.3 mmol/L (3.3-5.1); Sodium 137 mmol/L (135-145)
[2022-02-17 07:33] VITALS: BP 107/68; PULSE 64; RESP 18; TEMP 36.4; O2SAT 94
[2022-02-17] MEDS: Vilazodone HCL 40 MG TABLET PO (08:29)
[2022-02-17] MEDS: Famotidine/PF 20 MG/2 ML VIAL IVPUSH (08:29)
[2022-02-17] MEDS: ARIPiprazole 5 MG TABLET PO (08:29)
--- NOTE | 2022-02-17 08:40 | MHC.CM.PN ---
Patient lives in an apartment with her Brother and she uses a cane at times to assist with mobility.Patient has been medically cleared for dc to home today,self care. Patient has received Pfizer vax X3 and her PCP is Dr. Cross.
[2022-02-17 09:06] VITALS: O2SAT 100
--- NOTE | 2022-02-17 13:48 | HO.POSTANES ---
Post Anesthesia Evaluation Post Anesthesia Evaluation Vital Signs: Vital Signs Temp Pulse Resp BP Pulse Ox 02/17/22 09:06 100 02/17/22 07:33 97.6 F 64 18 107/68 94 02/17/22 04:00 97.4 F 70 17 120/70 95 Anesthesia: General Endotracheal-GETA Mental Status: Awake Pain Control: Satisfactory Nausea/Vomiting: None Hydration: Adequate Anesthesia-Related Issues: No Anes. Related Issues
== END 2022-02-17 10:28 | disposition home or self-care (01) | DRG 403 ==
LOC: HO.SSSA 08:19 → HO.S3 12:11
PROVIDERS: Nurse Practitioner; Physician Assistant Surgical; Admitting Provider Surgery; PCP Internal Medicine; Visit Provider Surgery
PROC: 0DB64Z3 Excision of Stomach, Percutaneous Endoscopic Approach, Vertical (ICD-10-PCS; CPT 43845; principal; 2022-02-16 10:10)
DX: E66.01 Morbid (severe) obesity due to excess calories (principal); E03.9 Hypothyroidism, unspecified; E78.5 Hyperlipidemia, unspecified; M51.37 Other intervertebral disc degeneration, lumbosacral region; M79.7 Fibromyalgia; F90.9 Attention-deficit hyperactivity disorder, unspecified type; E28.2 Polycystic ovarian syndrome; G25.81 Restless legs syndrome; I73.00 Raynaud's syndrome without gangrene; K66.0 Peritoneal adhesions (postprocedural) (postinfection); Z68.36 Body mass index [BMI] 36.0-36.9, adult; Z87.891 Personal history of nicotine dependence; Z79.51 Long term (current) use of inhaled steroids; Z79.890 Hormone replacement therapy; Z79.899 Other long term (current) drug therapy
CPT/HCPCS: 36415; 80048; 80053; 80061; 81025; 83036; 83525; 84443; 85014; 85018; 85025; 85610; 85730; 86140; 86850; 86900; 86901; 87635; 88307; 88342; 99024; A4649; J0131; J0690; J1100; J1170; J2250; J2405; J2550; J2765; J3010

== ENCOUNTER → 2022-02-21 07:49 | Outpatient (BNVA) | payer OTHER, SELFPAY | PROVIDERS: PCP Internal Medicine; Visit Provider Surgery | DX: E66.9 Obesity, unspecified (principal); Z68.35 Body mass index [BMI] 35.0-35.9, adult | CPT/HCPCS: 99212 ==

== ENCOUNTER → 2022-04-06 08:02 | Outpatient (BNVA) | payer OTHER, SELFPAY | PROVIDERS: PCP Internal Medicine; Visit Provider Dietitian, Registered | DX: E66.9 Obesity, unspecified (principal); Z68.31 Body mass index [BMI] 31.0-31.9, adult | CPT/HCPCS: 97803 ==

== ENCOUNTER → 2022-04-13 14:23 | Outpatient (BNVA) | payer OTHER, SELFPAY | PROVIDERS: PCP Internal Medicine; Referring Provider Surgery; Visit Provider Dietitian, Registered | DX: E66.9 Obesity, unspecified (principal); Z68.31 Body mass index [BMI] 31.0-31.9, adult; Z98.84 Bariatric surgery status; Z71.3 Dietary counseling and surveillance | CPT/HCPCS: 97803 ==

== ENCOUNTER → 2022-04-20 15:00 | Outpatient (BNVA) | payer OTHER, SELFPAY | PROVIDERS: PCP Internal Medicine; Referring Provider Surgery; Visit Provider Dietitian, Registered | DX: E66.9 Obesity, unspecified (principal); Z68.31 Body mass index [BMI] 31.0-31.9, adult | CPT/HCPCS: 97803 ==

== ENCOUNTER → 2022-05-03 13:22 | Outpatient (BNVA) | payer OTHER, SELFPAY | PROVIDERS: PCP Internal Medicine; Visit Provider Nurse Practitioner Family | DX: M79.7 Fibromyalgia (principal); M54.50 Low back pain, unspecified; M25.512 Pain in left shoulder; Z79.891 Long term (current) use of opiate analgesic | CPT/HCPCS: 99212 ==

== ENCOUNTER 2022-05-09 08:52 | Outpatient (REF) | payer OTHER, SELFPAY ==
[2022-05-09 12:07] LABS: Alanine Aminotransferase 31 U/L (0-31); Albumin Level 4.1 g/dL (3.5-5.0); Alkaline Phosphatase 84 U/L (39-117); Anion Gap 10 (12-20); Aspartate Amino Transferase 26 U/L (5-31); Bilirubin Total 0.6 mg/dL (0.0-1.0); Blood Urea Nitrogen 14 mg/dL (9-16); Calcium 9.2 mg/dL (8.4-10.2); Carbon Dioxide 29 mmol/L (22-29); Chloride 104 mmol/L (96-108); Estimated Glomerular Filt Rate > 60; Glucose Random 87 mg/dL (60-115); Sodium 139 mmol/L (135-145); Total Protein 6.5 g/dL (6.5-8.0)
[2022-05-09 12:10] LABS: Free T4 (Free Thyroxine) 1.16 ng/dL (0.71-1.85); Thyroid Stimulating Hormone 1.21 uIU/mL (0.32-4.0)
[2022-05-11 00:12] LABS: Sex Hormone Binding Globulin 47 nmol/L (17-124)
[2022-05-14 11:46] LABS: Testosterone, Free 4.8 pg/mL (0.1-6.4); Testosterone, Total 37 ng/dL (2-45)
== END 2022-05-09 08:53 | disposition home or self-care (01) ==
LOC: HO.HMGCLDS 08:52
PROVIDERS: Visit Provider Internal Medicine
DX: E28.2 Polycystic ovarian syndrome (principal); E03.9 Hypothyroidism, unspecified; E04.9 Nontoxic goiter, unspecified
CPT/HCPCS: 36415; 80053; 84270; 84402; 84403; 84439; 84443

== ENCOUNTER → 2022-05-19 15:06 | Outpatient (BNVA) | payer OTHER, SELFPAY | PROVIDERS: PCP Internal Medicine; Referring Provider Surgery; Visit Provider Dietitian, Registered | DX: E66.9 Obesity, unspecified (principal); Z98.84 Bariatric surgery status; Z71.3 Dietary counseling and surveillance | CPT/HCPCS: 97803 ==

== ENCOUNTER 2022-06-07 06:11 | Outpatient (REF) | payer OTHER, SELFPAY ==
--- NOTE | ~2022-06-07 | FL_ITS ---
EXAMINATION: XR FLUOROSCOPY WITH IMAGES CLINICAL INFORMATION: M47.816 - Spondylosis without myelopathy or radiculopathy, lumbar region COMPARISON: Lumbar radiographs 04/29/2021 TECHNIQUE: Fluoroscopy performed by Dr. Shan Lam. Fluoroscopy time: 0.5 minutes. Cumulative Dose: 7.49 mGy. DAP: 2.04 Gy-cm2. Images: 5. FINDINGS: There are spinal needles overlying the bilateral outer L4, and L5 neural foramen and the outer right L3 neural foramen. There is contrast seen in the respective nerve sheaths. Some early transforaminal epidural extension is suggested. There is also contrast in the nerve sheath left L3. No visible vascular communication. FL/FL guidance in treatment room IMPRESSION: Fluoroscopy for pain management procedures.
== END 2022-06-07 06:12 | disposition home or self-care (01) ==
LOC: HO.RADIR 06:11
PROVIDERS: Visit Provider Anesthesiology
DX: M47.816 Spondylosis without myelopathy or radiculopathy, lumbar region (principal); M47.817 Spondylosis without myelopathy or radiculopathy, lumbosacral region
CPT/HCPCS: 64493; 64494

== ENCOUNTER → 2022-06-16 14:00 | Outpatient (BNVA) | payer OTHER, SELFPAY | PROVIDERS: PCP Internal Medicine; Referring Provider Surgery; Visit Provider Dietitian, Registered | DX: E66.9 Obesity, unspecified (principal); Z68.31 Body mass index [BMI] 31.0-31.9, adult | CPT/HCPCS: 97803 ==

== ENCOUNTER → 2022-07-18 13:50 | Outpatient (BNVA) | payer OTHER, SELFPAY | PROVIDERS: PCP Internal Medicine; Referring Provider Surgery; Visit Provider Dietitian, Registered | DX: E66.9 Obesity, unspecified (principal); Z71.3 Dietary counseling and surveillance; Z68.30 Body mass index [BMI] 30.0-30.9, adult | CPT/HCPCS: 97803 ==

== ENCOUNTER → 2022-07-20 16:01 | Outpatient (BNVA) | payer OTHER, SELFPAY | PROVIDERS: PCP Internal Medicine; Visit Provider Counselor Mental Health | DX: F90.2 Attention-deficit hyperactivity disorder, combined type (principal); E66.01 Morbid (severe) obesity due to excess calories; Z68.41 Body mass index [BMI] 40.0-44.9, adult; Z90.3 Acquired absence of stomach [part of] | CPT/HCPCS: 90791 ==

== ENCOUNTER 2022-08-12 08:19 | Outpatient (REF) | payer OTHER, SELFPAY ==
[2022-08-12 11:26] LABS: Cholesterol 206 mg/dL; HDL Cholesterol 55 mg/dL; LDL Cholesterol Calculated 138 mg/dl; Triglycerides 68 mg/dL
[2022-08-12 12:07] LABS: Folate 13.4 ng/mL (> or = 4.0); Vitamin B12 639 pg/mL (200-900)
== END 2022-08-12 08:20 | disposition home or self-care (01) ==
LOC: HO.WFDLDS 08:19
PROVIDERS: Visit Provider Internal Medicine
DX: Z00.01 Encounter for general adult medical examination with abnormal findings (principal); Z98.84 Bariatric surgery status
CPT/HCPCS: 36415; 80061; 82607; 82746

== ENCOUNTER 2022-08-19 13:28 | Outpatient (REF) | payer OTHER, SELFPAY ==
--- NOTE | ~2022-08-19 | MM_ITS ---
EXAMINATION: MM SCREENING DIGITAL BREAST TOMOSYNTHESIS, BILATERAL CLINICAL INFORMATION: Screening. Asymptomatic. The lifetime risk of breast cancer based on the Tyrer-Cuzick Model is 17%. COMPARISON: Mammography: 08/18/2021 (baseline) TECHNIQUE: Digital breast tomosynthesis is performed in both the craniocaudal and mediolateral oblique views along with computer-aided detection (CAD). Synthesized 2D images are generated from the tomosynthesis. FINDINGS: There are scattered areas of fibroglandular density (ACR BI-RADS breast composition Category b). There are no significant masses, abnormal calcifications, or other abnormalities. Breast tissue composition borders on predominantly fatty. Background stromal markings are stable. No significant changes. MM/MM tomosynthesis screening BI IMPRESSION: No mammographic evidence of malignancy. ASSESSMENT: BI-RADS 1: Negative RECOMMENDATION: Routine annual mammography screening. This patient's information was entered into a reminder system with a target due date for their next mammogram.
== END 2022-08-19 13:29 | disposition home or self-care (01) ==
LOC: HO.MAMMO 13:28
PROVIDERS: PCP Internal Medicine; Visit Provider Internal Medicine
DX: Z12.31 Encounter for screening mammogram for malignant neoplasm of breast (principal)
CPT/HCPCS: 77063; 77067

== ENCOUNTER → 2022-09-08 13:25 | Outpatient (BNVA) | payer OTHER, SELFPAY | PROVIDERS: PCP Internal Medicine; Visit Provider Dietitian, Registered | DX: E66.01 Morbid (severe) obesity due to excess calories (principal); Z90.3 Acquired absence of stomach [part of]; Z71.3 Dietary counseling and surveillance | CPT/HCPCS: 97803 ==

== ENCOUNTER → 2022-09-30 09:20 | Outpatient (BNVA) | payer OTHER, SELFPAY | PROVIDERS: PCP Internal Medicine; Visit Provider Physician Assistant Surgical | DX: E66.9 Obesity, unspecified (principal); Z68.31 Body mass index [BMI] 31.0-31.9, adult; Z98.84 Bariatric surgery status | CPT/HCPCS: 99212 ==

== ENCOUNTER → 2022-10-12 14:09 | Outpatient (BNVA) | payer OTHER, SELFPAY | PROVIDERS: PCP Internal Medicine; Visit Provider Dietitian, Registered | DX: Z98.84 Bariatric surgery status (principal); Z71.3 Dietary counseling and surveillance | CPT/HCPCS: 97803 ==

== ENCOUNTER 2022-10-20 08:02 | Outpatient (REF) | payer OTHER, SELFPAY ==
[2022-10-20 08:32] LABS: MANUAL DIFF FLAG NO
[2022-10-20 08:56] LABS: Basophils Absolute Auto 0.2 X10*3/uL (0.0-0.2); Basophils Percent Auto 1.9 % (0-2); Eosinophils Absolute Auto 0.1 X10*3/uL (0.0-0.4); Eosinophils Percent Auto 1.6 % (0-4); Hematocrit 41.4 % (37.0-47.0); Hemoglobin 13.6 g/dl (12.0-16.0); Imm Gran Abs Auto 0.02 X10*3/uL (0.00-0.03); Imm Gran Pct Auto 0.2 % (0.0-0.4); Lymphocytes Absolute Auto 2.9 X10*3/uL (1.2-4.9); Lymphocytes Percent Auto 33.2 % (20-40); Mean Corpuscular HGB Conc 32.9 g/dl (31.0-35.0); Mean Corpuscular Volume 94.3 fL (80.0-98.0); Mean Platelet Volume 10.4 fL (9.4-12.3); Monocytes Absolute Auto 0.7 X10*3/uL (0.1-1.2); Monocytes Percent Auto 7.9 % (2-11); Neutrophils Absolute Auto 4.8 x10*3/uL (2.0-8.3); Neutrophils Percent Auto 55.2 % (45-73); Platelet Count 258 X10*3/uL (160-400); Red Blood Count 4.39 X10*6/uL (4.20-5.50); White Blood Count 8.6 X10*3/uL (4.8-10.8)
[2022-10-20 09:02] LABS: Estimated Average Glucose 94 mg/dL; Hemoglobin A1c % 4.9 %
[2022-10-20 09:35] LABS: Alanine Aminotransferase 43 U/L (0-31); Albumin Level 4.1 g/dL (3.5-5.0); Alkaline Phosphatase 61 U/L (39-117); Anion Gap 10 (12-20); Aspartate Amino Transferase 23 U/L (5-31); Bilirubin Total 0.6 mg/dL (0.0-1.0); Blood Urea Nitrogen 23 mg/dL (9-16); C Reactive Protein 0.15 mg/dL (< or = 0.50); Calcium 9.7 mg/dL (8.4-10.2); Carbon Dioxide 29 mmol/L (22-29); Chloride 101 mmol/L (96-108); Cholesterol 214 mg/dL; Estimated Glomerular Filt Rate > 60; Ferritin 96 ng/mL (10-250); Glucose Random 83 mg/dL (60-115); HDL Cholesterol 61 mg/dL; Insulin 4 uU/mL (2-29); Iron 103 mcg/dL (30-160); LDL Cholesterol Calculated 139 mg/dl; Percent Iron Saturation 34 % (15-50); Potassium 4.1 mmol/L (3.3-5.1); Sodium 136 mmol/L (135-145); TSH reflex Free T4 1.96 uIU/mL (0.32-4.0); Total Iron Binding Capacity 299 mcg/dL (228-428); Total Protein 6.5 g/dL (6.5-8.0); Triglycerides 71 mg/dL; Unsaturated Iron Binding 196 ug/dL
[2022-10-20 09:39] LABS: Free T4 (Free Thyroxine) 1.05 ng/dL (0.71-1.85); Thyroid Stimulating Hormone 1.89 uIU/mL (0.32-4.0); Vitamin D 25-OH Total 35.3 ng/mL (>30)
[2022-10-20 09:47] LABS: Folate 9.5 ng/mL (> or = 4.0); Vitamin B12 534 pg/mL (200-900)
[2022-10-22 02:04] LABS: Sex Hormone Binding Globulin 47 nmol/L (17-124)
[2022-10-23 15:39] LABS: Calcium (PTHI) 9.6 mg/dL (8.6-10.2); PTHI 41 pg/mL (16-77)
[2022-10-25 06:19] LABS: Zinc 120 mcg/dL (60-130)
[2022-10-25 14:48] LABS: Vitamin B1 19 nmol/L (8-30)
[2022-10-26 09:28] LABS: Vitamin A 62 mcg/dL (38-98)
[2022-10-26 19:14] LABS: Testosterone, Free 1.2 pg/mL (0.1-6.4); Testosterone, Total 9 ng/dL (2-45)
== END 2022-10-20 08:03 | disposition home or self-care (01) ==
LOC: HO.LAB 08:02
PROVIDERS: Absent Provider Internal Medicine; PCP Internal Medicine; Visit Provider Physician Assistant Surgical
DX: E55.9 Vitamin D deficiency, unspecified (principal); E03.9 Hypothyroidism, unspecified; E28.2 Polycystic ovarian syndrome; Z98.84 Bariatric surgery status
CPT/HCPCS: 36415; 80053; 80061; 82306; 82607; 82728; 82746; 83036; 83525; 83540; 83970; 84270; 84402; 84403; 84425; 84439; 84443; 84590; 84630; 85025; 86140; 90834

== ENCOUNTER → 2022-11-01 16:00 | Outpatient (BNVA) | payer OTHER, SELFPAY | PROVIDERS: PCP Internal Medicine; Visit Provider Counselor Mental Health ==

== ENCOUNTER → 2022-11-09 17:00 | Outpatient (BNVA) | payer OTHER, SELFPAY | PROVIDERS: PCP Internal Medicine; Visit Provider Counselor Mental Health | DX: F33.1 Major depressive disorder, recurrent, moderate (principal); F90.2 Attention-deficit hyperactivity disorder, combined type; E66.01 Morbid (severe) obesity due to excess calories; Z68.41 Body mass index [BMI] 40.0-44.9, adult; Z90.3 Acquired absence of stomach [part of]; Z98.84 Bariatric surgery status | CPT/HCPCS: 90853 ==

== ENCOUNTER → 2022-11-10 13:48 | Outpatient (BNVA) | payer OTHER, SELFPAY | PROVIDERS: PCP Internal Medicine; Visit Provider Internal Medicine | DX: E28.2 Polycystic ovarian syndrome (principal); L68.0 Hirsutism; E03.9 Hypothyroidism, unspecified; Z90.3 Acquired absence of stomach [part of] | CPT/HCPCS: 99212 ==

== ENCOUNTER 2022-11-29 08:12 | Outpatient (REF) | payer OTHER, SELFPAY ==
[2022-11-29 09:33] LABS: Alanine Aminotransferase 34 U/L (0-31); Albumin Level 4.1 g/dL (3.5-5.0); Alkaline Phosphatase 67 U/L (39-117); Anion Gap 12 (12-20); Aspartate Amino Transferase 22 U/L (5-31); Bilirubin Total 0.5 mg/dL (0.0-1.0); Blood Urea Nitrogen 20 mg/dL (9-16); Calcium 9.2 mg/dL (8.4-10.2); Carbon Dioxide 27 mmol/L (22-29); Chloride 105 mmol/L (96-108); Estimated Glomerular Filt Rate > 60; Glucose Random 84 mg/dL (60-115); Potassium 4.5 mmol/L (3.3-5.1); Sodium 139 mmol/L (135-145); Total Protein 6.5 g/dL (6.5-8.0)
[2022-11-29 09:43] LABS: Glucose Fasting 86 mg/dL (60-99)
[2022-11-29 09:43] LABS: Vitamin D 25-OH Total 28.8 ng/mL (>30)
[2022-11-29 09:56] LABS: Glucose 1 Hour 144 mg/dL
[2022-11-29 11:37] LABS: Glucose 2 Hour 68 mg/dL
== END 2022-11-29 08:13 | disposition home or self-care (01) ==
LOC: HO.LAB 08:12
PROVIDERS: Absent Provider Internal Medicine; PCP Internal Medicine; Visit Provider Physician Assistant Surgical
DX: E28.2 Polycystic ovarian syndrome (principal); Z98.84 Bariatric surgery status
CPT/HCPCS: 36415; 80053; 82306

== ENCOUNTER → 2022-12-01 13:00 | Outpatient (BNVA) | payer OTHER, SELFPAY | PROVIDERS: PCP Internal Medicine; Visit Provider Counselor Mental Health | DX: F33.1 Major depressive disorder, recurrent, moderate (principal); F90.2 Attention-deficit hyperactivity disorder, combined type; Z90.3 Acquired absence of stomach [part of] | CPT/HCPCS: 90834 ==

== ENCOUNTER 2022-12-08 11:08 | Outpatient (REF) | payer OTHER, SELFPAY ==
--- NOTE | ~2022-12-08 | XR_ITS ---
EXAMINATION: XR SACROILIAC JOINTS CLINICAL INFORMATION: M79.18 - Myalgia, other site COMPARISON: Bilateral hips 10/29/2020, lumbar spine 10/20/2015. TECHNIQUE: 4 views of the sacroiliac joints FINDINGS: The SI joints appear normal. No joint narrowing or subchondral sclerosis or erosive changes. No ankylosis. The hip joints are unremarkable. There is some mineralization adjacent to the posterior superior left acetabulum similar to 2015. XR/XR sacroiliac joint min 3V IMPRESSION: Normal sacroiliac joints.
[2022-12-08 13:50] LABS: C Reactive Protein 0.13 mg/dL (< or = 0.50)
[2022-12-08 14:05] LABS: Erythrocyte Sedimentation Rate 5 MM/HR (0-20)
== END 2022-12-08 11:09 | disposition home or self-care (01) ==
LOC: HO.LAB 11:08
PROVIDERS: PCP Internal Medicine; Visit Provider Nurse Practitioner Family
DX: M79.18 Myalgia, other site (principal); M25.50 Pain in unspecified joint
CPT/HCPCS: 36415; 72202; 85652; 86140; 99212

== ENCOUNTER → 2022-12-09 11:26 | Outpatient (BNVA) | payer OTHER, SELFPAY | PROVIDERS: PCP Internal Medicine; Visit Provider Dietitian, Registered | DX: E66.9 Obesity, unspecified (principal); Z68.33 Body mass index [BMI] 33.0-33.9, adult; Z98.84 Bariatric surgery status; Z71.3 Dietary counseling and surveillance | CPT/HCPCS: 97803 ==

== ENCOUNTER → 2022-12-16 11:15 | Outpatient (BNVA) | payer OTHER, SELFPAY | PROVIDERS: PCP Internal Medicine; Visit Provider Counselor Mental Health | DX: F33.1 Major depressive disorder, recurrent, moderate (principal); F90.2 Attention-deficit hyperactivity disorder, combined type; F43.10 Post-traumatic stress disorder, unspecified; Z90.3 Acquired absence of stomach [part of] | CPT/HCPCS: 90834 ==

== ENCOUNTER → 2022-12-23 09:00 | Outpatient (BNVA) | payer OTHER, SELFPAY | PROVIDERS: PCP Internal Medicine; Visit Provider Counselor Mental Health | DX: F33.1 Major depressive disorder, recurrent, moderate (principal); F90.2 Attention-deficit hyperactivity disorder, combined type; F43.10 Post-traumatic stress disorder, unspecified; Z98.84 Bariatric surgery status; Z90.3 Acquired absence of stomach [part of] | CPT/HCPCS: 90834 ==

== ENCOUNTER → 2022-12-28 10:53 | Outpatient (BNVA) | payer OTHER, SELFPAY | PROVIDERS: PCP Internal Medicine; Visit Provider Dietitian, Registered | DX: E28.2 Polycystic ovarian syndrome (principal); E03.9 Hypothyroidism, unspecified; E66.9 Obesity, unspecified; Z68.32 Body mass index [BMI] 32.0-32.9, adult | CPT/HCPCS: 97803; 99212 ==

== ENCOUNTER → 2022-12-30 11:15 | Outpatient (BNVA) | payer OTHER, SELFPAY | PROVIDERS: PCP Internal Medicine; Visit Provider Counselor Mental Health | DX: F90.9 Attention-deficit hyperactivity disorder, unspecified type (principal); F33.1 Major depressive disorder, recurrent, moderate; F43.10 Post-traumatic stress disorder, unspecified; Z90.49 Acquired absence of other specified parts of digestive tract; Z90.3 Acquired absence of stomach [part of]; Z98.84 Bariatric surgery status; Z87.891 Personal history of nicotine dependence | CPT/HCPCS: 90834 ==

== ENCOUNTER → 2023-01-06 11:15 | Outpatient (BNVA) | payer OTHER, SELFPAY | PROVIDERS: PCP Internal Medicine; Visit Provider Counselor Mental Health | DX: Z13.89 Encounter for screening for other disorder (principal) ==

== ENCOUNTER → 2023-01-06 11:15 | Outpatient (BNVA) | payer OTHER, SELFPAY | PROVIDERS: PCP Internal Medicine; Visit Provider Counselor Mental Health ==

== ENCOUNTER → 2023-01-13 11:15 | Outpatient (BNVA) | payer OTHER, SELFPAY | PROVIDERS: PCP Internal Medicine; Visit Provider Counselor Mental Health | DX: F33.1 Major depressive disorder, recurrent, moderate (principal); F90.2 Attention-deficit hyperactivity disorder, combined type; F43.10 Post-traumatic stress disorder, unspecified; Z90.3 Acquired absence of stomach [part of] | CPT/HCPCS: 90834 ==

== ENCOUNTER 2023-01-16 06:21 | Outpatient (REF) | payer OTHER, SELFPAY ==
[2023-01-16 07:35] LABS: Anion Gap 9 (12-20); Blood Urea Nitrogen 19 mg/dL (9-16); Calcium 9.2 mg/dL (8.4-10.2); Carbon Dioxide 29 mmol/L (22-29); Chloride 104 mmol/L (96-108); Estimated Glomerular Filt Rate > 60; Glucose Random 84 mg/dL (60-115); Potassium 4.2 mmol/L (3.3-5.1); Sodium 138 mmol/L (135-145)
[2023-01-16 07:41] LABS: Alanine Aminotransferase 20 U/L (0-31); Albumin Level 4.1 g/dL (3.5-5.0); Alkaline Phosphatase 68 U/L (39-117); Anion Gap 10 (12-20); Aspartate Amino Transferase 18 U/L (5-31); Bilirubin Total 0.6 mg/dL (0.0-1.0); Blood Urea Nitrogen 19 mg/dL (9-16); Calcium 9.1 mg/dL (8.4-10.2); Carbon Dioxide 28 mmol/L (22-29); Chloride 103 mmol/L (96-108); Estimated Glomerular Filt Rate > 60; Glucose Random 84 mg/dL (60-115); Potassium 4.1 mmol/L (3.3-5.1); Sodium 137 mmol/L (135-145); Total Protein 6.6 g/dL (6.5-8.0)
[2023-01-16 07:55] LABS: Estimated Average Glucose 103 mg/dL; Hemoglobin A1c % 5.2 %
[2023-01-16 07:58] LABS: Cortisol Random 7.1 ug/dL
[2023-01-16 08:00] LABS: Free T4 (Free Thyroxine) 1.11 ng/dL (0.71-1.85); HCG Quantitative < 2 mIU/mL; Thyroid Stimulating Hormone 1.46 uIU/mL (0.32-4.0)
[2023-01-17 11:18] LABS: Sex Hormone Binding Globulin 40 nmol/L (17-124)
[2023-01-17 11:38] LABS: DHEA Sulfate 59 mcg/dL (15-205); Follicle Stimulating Hormone 6.4 mIU/mL; Prolactin 14.7 ng/mL
[2023-01-19 03:59] LABS: Adrenocorticotropic Hormone 8 pg/mL (6-50)
[2023-01-20 19:54] LABS: Estradiol Ultra Sensitive 126 pg/mL
[2023-01-21 18:29] LABS: Androstenedione 71 ng/dL
[2023-01-25 11:13] LABS: Testosterone, Free 3.3 pg/mL (0.1-6.4); Testosterone, Total 16 ng/dL (2-45)
== END 2023-01-16 06:22 | disposition home or self-care (01) ==
LOC: HO.LAB 06:21
PROVIDERS: PCP Internal Medicine; Visit Provider Internal Medicine
DX: E28.2 Polycystic ovarian syndrome (principal); E03.9 Hypothyroidism, unspecified; L70.0 Acne vulgaris; L74.510 Primary focal hyperhidrosis, axilla
CPT/HCPCS: 36415; 80048; 80053; 82024; 82157; 82533; 82627; 82670; 83001; 83002; 83036; 83498; 84146; 84270; 84402; 84403; 84439; 84443; 84702

== ENCOUNTER → 2023-01-20 11:12 | Outpatient (BNVA) | payer OTHER, SELFPAY | PROVIDERS: PCP Internal Medicine; Visit Provider Counselor Mental Health | DX: E66.01 Morbid (severe) obesity due to excess calories (principal); E55.9 Vitamin D deficiency, unspecified; F33.1 Major depressive disorder, recurrent, moderate; F90.2 Attention-deficit hyperactivity disorder, combined type; F43.10 Post-traumatic stress disorder, unspecified; Z90.3 Acquired absence of stomach [part of] | CPT/HCPCS: 90834 ==

== ENCOUNTER → 2023-01-26 09:59 | Outpatient (BNVA) | payer OTHER, SELFPAY | PROVIDERS: PCP Internal Medicine; Visit Provider Nurse Practitioner Family | DX: M79.7 Fibromyalgia (principal) | CPT/HCPCS: 99212 ==

== ENCOUNTER 2023-01-27 07:48 | Outpatient (REF) | payer OTHER, SELFPAY ==
[2023-01-29 16:08] LABS: Cortisol 30 Minute 24.9 mcg/dL; Cortisol 30 Minute Time 920; Cortisol 60 Minute 28.4 mcg/dL; Cortisol 60 Minute Time 3 950; Cortisol Baseline 10.8 mcg/dL; Cortisol Baseline Time 1 850
[2023-02-02 20:58] LABS: Adrenocorticotropic Hormone 9 pg/mL (6-50)
== END 2023-01-27 07:49 | disposition home or self-care (01) ==
LOC: HO.MDS 07:48
PROVIDERS: PCP Internal Medicine; Visit Provider Internal Medicine
DX: E27.40 Unspecified adrenocortical insufficiency (principal); F33.1 Major depressive disorder, recurrent, moderate; F43.10 Post-traumatic stress disorder, unspecified; F42.9 Obsessive-compulsive disorder, unspecified; F90.2 Attention-deficit hyperactivity disorder, combined type; E66.01 Morbid (severe) obesity due to excess calories; Z68.41 Body mass index [BMI] 40.0-44.9, adult; Z90.3 Acquired absence of stomach [part of]
CPT/HCPCS: 36415; 82024; 82533; 90834; J0834

== ENCOUNTER → 2023-02-02 15:05 | Outpatient (BNVA) | payer OTHER, SELFPAY | PROVIDERS: PCP Internal Medicine; Visit Provider Counselor Mental Health | DX: F90.2 Attention-deficit hyperactivity disorder, combined type (principal); F43.10 Post-traumatic stress disorder, unspecified; Z98.84 Bariatric surgery status; Z90.3 Acquired absence of stomach [part of] | CPT/HCPCS: 90834 ==

== ENCOUNTER → 2023-02-09 07:43 | Outpatient (BNVA) | payer OTHER, SELFPAY | PROVIDERS: PCP Internal Medicine; Visit Provider Counselor Mental Health | DX: F43.10 Post-traumatic stress disorder, unspecified (principal); F90.2 Attention-deficit hyperactivity disorder, combined type; Z90.3 Acquired absence of stomach [part of]; Z90.49 Acquired absence of other specified parts of digestive tract | CPT/HCPCS: 90853 ==

== ENCOUNTER → 2023-02-10 11:00 | Outpatient (BNVA) | payer OTHER, SELFPAY | PROVIDERS: PCP Internal Medicine; Visit Provider Counselor Mental Health ==

== ENCOUNTER → 2023-02-17 10:00 | Outpatient (BNVA) | payer OTHER, SELFPAY | PROVIDERS: PCP Internal Medicine; Visit Provider Counselor Mental Health ==

== ENCOUNTER → 2023-03-01 17:07 | Outpatient (BNVA) | payer OTHER, SELFPAY | PROVIDERS: PCP Internal Medicine; Visit Provider Counselor Mental Health | DX: F90.2 Attention-deficit hyperactivity disorder, combined type (principal); F43.10 Post-traumatic stress disorder, unspecified; Z90.3 Acquired absence of stomach [part of] | CPT/HCPCS: 90853 ==

== ENCOUNTER → 2023-03-08 13:30 | Outpatient (BNVA) | payer OTHER, SELFPAY | PROVIDERS: PCP Internal Medicine; Visit Provider Counselor Mental Health ==

== ENCOUNTER → 2023-03-17 10:10 | Outpatient (BNVA) | payer OTHER, SELFPAY | PROVIDERS: PCP Internal Medicine; Visit Provider Counselor Mental Health ==

== ENCOUNTER → 2023-03-24 11:00 | Outpatient (BNVA) | payer OTHER, SELFPAY | PROVIDERS: PCP Internal Medicine; Visit Provider Counselor Mental Health ==

== ENCOUNTER → 2023-03-31 09:30 | Outpatient (BNVA) | payer OTHER, SELFPAY | PROVIDERS: PCP Internal Medicine; Visit Provider Counselor Mental Health | DX: F90.2 Attention-deficit hyperactivity disorder, combined type (principal); Z90.3 Acquired absence of stomach [part of]; F43.10 Post-traumatic stress disorder, unspecified ==

== ENCOUNTER → 2023-04-07 09:30 | Outpatient (BNVA) | payer OTHER, SELFPAY | PROVIDERS: PCP Internal Medicine; Visit Provider Counselor Mental Health | DX: F90.2 Attention-deficit hyperactivity disorder, combined type (principal); Z90.3 Acquired absence of stomach [part of]; F43.10 Post-traumatic stress disorder, unspecified ==

== ENCOUNTER → 2023-04-12 17:00 | Outpatient (BNVA) | payer OTHER, SELFPAY | PROVIDERS: PCP Internal Medicine; Visit Provider Counselor Mental Health | DX: F90.2 Attention-deficit hyperactivity disorder, combined type (principal); F43.10 Post-traumatic stress disorder, unspecified; Z98.84 Bariatric surgery status; Z90.3 Acquired absence of stomach [part of] | CPT/HCPCS: 90853 ==

== ENCOUNTER → 2023-04-14 10:30 | Outpatient (BNVA) | payer OTHER, SELFPAY | PROVIDERS: PCP Internal Medicine; Visit Provider Counselor Mental Health | DX: F90.2 Attention-deficit hyperactivity disorder, combined type (principal); Z90.3 Acquired absence of stomach [part of]; F43.10 Post-traumatic stress disorder, unspecified ==

== ENCOUNTER → 2023-04-26 19:22 | Outpatient (BNVA) | payer OTHER, SELFPAY | PROVIDERS: PCP Internal Medicine; Visit Provider Counselor Mental Health | DX: F90.2 Attention-deficit hyperactivity disorder, combined type (principal); F43.10 Post-traumatic stress disorder, unspecified; Z90.3 Acquired absence of stomach [part of] | CPT/HCPCS: 90853 ==

== ENCOUNTER → 2023-05-03 17:00 | Outpatient (BNVA) | payer OTHER, SELFPAY | PROVIDERS: PCP Internal Medicine; Visit Provider Counselor Mental Health | DX: F90.2 Attention-deficit hyperactivity disorder, combined type (principal); F43.10 Post-traumatic stress disorder, unspecified; Z90.3 Acquired absence of stomach [part of] | CPT/HCPCS: 90853 ==

== ENCOUNTER → 2023-05-05 09:30 | Outpatient (BNVA) | payer OTHER, SELFPAY | PROVIDERS: PCP Internal Medicine; Visit Provider Counselor Mental Health ==

== ENCOUNTER → 2023-05-16 14:00 | Outpatient (BNVA) | payer OTHER, SELFPAY | PROVIDERS: PCP Internal Medicine; Visit Provider Counselor Mental Health ==

== ENCOUNTER → 2023-05-16 14:00 | Outpatient (BNVA) | payer OTHER, SELFPAY | PROVIDERS: PCP Internal Medicine; Visit Provider Counselor Mental Health ==

== ENCOUNTER → 2023-05-24 17:08 | Outpatient (BNVA) | payer OTHER, SELFPAY | PROVIDERS: PCP Internal Medicine; Visit Provider Counselor Mental Health ==

== ENCOUNTER 2023-05-26 09:45 | Outpatient (AMB) | payer OTHER, SELFPAY ==
--- NOTE | 2023-06-09 11:46 | MHC.WMTHER ---
Intake Intake Visit Reasons: VIDEO PO LSG 02/06/22 Allergies cat dander [CAT DANDER] Allergy (Mild, Verified 01/26/23 10:28) EYES- TEAR, ITCHY, face swells dog dander [DOG DANDER] Allergy (Mild, Verified 01/26/23 10:28) EYES- TEAR, ITCHY, hives duloxetine [From CYMBALTA] Adverse Reaction (Intermediate, Verified 01/26/23 10:28) VAGINAL BLEEDING PFSH Medical History Acquired hypothyroidism ADHD (attention deficit hyperactivity disorder) Androgenetic alopecia Annual visit for general adult medical examination with abnormal findings Anxiety Bipolar disorder Body mass index [BMI]40.0-44.9, adult Breast cancer screening by mammogram Cholelithiasis Degenerative disc disease, lumbar Dyslipidemia Environmental and seasonal allergies Fibromyalgia Gastric ulcer Gastritis GERD (gastroesophageal reflux disease) Goiter Heartburn Hirsutism Hypertension Insomnia Irritable bowel syndrome with diarrhea Morbid obesity OCD (obsessive compulsive disorder) Oral abscess PCOS (polycystic ovarian syndrome) PONV (postoperative nausea and vomiting) PTSD (post-traumatic stress disorder) Refused influenza vaccine Restless leg syndrome Rosacea Sacroiliitis Scoliosis 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 Vitamin D deficiency Surgical History History of nasal surgery History of rotator cuff surgery Hx of bariatric surgery Hx of cholecystectomy Hx of colonoscopy Hx of shoulder surgery Miscarriage S/P laparoscopic sleeve gastrectomy Family History Father Diabetes mellitus Mother OCD (obsessive compulsive disorder) EITAN (generalized anxiety disorder) HTN (hypertension) Cancer Cervical cancer Family/Other FH: mental illness Maternal Grandmother EITAN (generalized anxiety disorder) Glaucoma Mental health disorder Maternal Grandfather Alzheimer disease Maternal Aunt Hypothyroidism Mental health disorder Paternal Grandmother Unknown family medical history Paternal Grandfather Unknown family medical history Sister Hypothyroidism Paternal Aunt Substance use disorder Maternal Uncle Substance use disorder Social History Household Members Other:: brother Housing: Apartment Are you a primary care services manager to a significant other at home: No Do you presently have visiting nurse or other home services: No Alcohol intake: never Patient Tobacco Use Status: Former Tobacco user Quit Date: 2011 Tobacco use type: Cigarette Cigarettes Per Day: 20 Years Smoked: 3 e-Cigarette/Vaping Use: Never Used service: No Current occupational status: disabled Cognitive needs: No Hearing needs: No Vision needs: No Behavioral Health Assessment Weight Management Therapy Therapy Notes Details EMDR session on memory of her father not showing up, SUDS 0, body scan clean. Assessment & Plan Assessment & Plan (1) ADHD (attention deficit hyperactivity disorder), combined type: Code(s): F90.2 - Attention-deficit hyperactivity disorder, combined type (2) Status post sleeve gastrectomy: Code(s): Z90.3 - Acquired absence of stomach [part of] (3) Posttraumatic stress disorder: Code(s): F43.10 - Post-traumatic stress disorder, unspecified Plan Patient struggles due to past complex trauma from childhood hunger and poverty, attachment issues with her mother, seperated from her father, some addiction issues. She would benefit from ongoing EMDR as well as post operative therapy group to address rel. with food. Telehealth Telehealth Location of provider rendering services: other Location of patient: address on file Patient Identification confirmed using: Name, : Yes Telehealth method: video Patient verbally consented to treatment: Yes Patient verbally consented to billing insurance company: Yes Patient informed of any privacy concerns related to visit: Yes Minutes spent on Phone/Video with Pt.: 55 Coding Level of Care Code Tele Psytx >53 mins (36714) Diagnoses ADHD (attention deficit hyperactivity disorder), combined type F90.2 Status post sleeve gastrectomy Z90.3 Posttraumatic stress disorder F43.10 Time Spent (min) 55
== END 2023-06-09 11:46 | disposition home or self-care (01) ==
LOC: HO.HBST 06-05 08:34
PROVIDERS: PCP Internal Medicine; Visit Provider Counselor Mental Health
DX: F90.2 Attention-deficit hyperactivity disorder, combined type (principal); Z90.3 Acquired absence of stomach [part of]; F43.10 Post-traumatic stress disorder, unspecified
CPT/HCPCS: 90837

== ENCOUNTER → 2023-05-26 09:45 | Outpatient (BNVA) | payer OTHER, SELFPAY | PROVIDERS: PCP Internal Medicine; Visit Provider Counselor Mental Health ==

== ENCOUNTER → 2023-06-07 16:00 | Outpatient (BNVA) | payer OTHER, SELFPAY | PROVIDERS: PCP Internal Medicine; Visit Provider Dietitian, Registered | DX: E66.9 Obesity, unspecified (principal); F90.2 Attention-deficit hyperactivity disorder, combined type; F43.10 Post-traumatic stress disorder, unspecified; Z90.3 Acquired absence of stomach [part of]; Z68.34 Body mass index [BMI] 34.0-34.9, adult | CPT/HCPCS: 90853; 97803 ==

== ENCOUNTER 2023-06-07 17:22 | Outpatient (AMB) | payer OTHER, SELFPAY ==
--- NOTE | 2023-06-08 14:32 | A.OFFWM_ITS ---
Intake Intake Visit Reasons: Group Therapy Allergies cat dander [CAT DANDER] Allergy (Mild, Verified 01/26/23 10:28) EYES- TEAR, ITCHY, face swells dog dander [DOG DANDER] Allergy (Mild, Verified 01/26/23 10:28) EYES- TEAR, ITCHY, hives duloxetine [From CYMBALTA] Adverse Reaction (Intermediate, Verified 01/26/23 10:28) VAGINAL BLEEDING PFSH Medical History Acquired hypothyroidism ADHD (attention deficit hyperactivity disorder) Androgenetic alopecia Annual visit for general adult medical examination with abnormal findings Anxiety Bipolar disorder Body mass index [BMI]40.0-44.9, adult Breast cancer screening by mammogram Cholelithiasis Degenerative disc disease, lumbar Dyslipidemia Environmental and seasonal allergies Fibromyalgia Gastric ulcer Gastritis GERD (gastroesophageal reflux disease) Goiter Heartburn Hirsutism Hypertension Insomnia Irritable bowel syndrome with diarrhea Morbid obesity OCD (obsessive compulsive disorder) Oral abscess PCOS (polycystic ovarian syndrome) PONV (postoperative nausea and vomiting) PTSD (post-traumatic stress disorder) Refused influenza vaccine Restless leg syndrome Rosacea Sacroiliitis Scoliosis 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 Vitamin D deficiency Surgical History History of nasal surgery History of rotator cuff surgery Hx of bariatric surgery Hx of cholecystectomy Hx of colonoscopy Hx of shoulder surgery Miscarriage S/P laparoscopic sleeve gastrectomy Family History Father Diabetes mellitus Mother OCD (obsessive compulsive disorder) EITAN (generalized anxiety disorder) HTN (hypertension) Cancer Cervical cancer Family/Other FH: mental illness Maternal Grandmother EITAN (generalized anxiety disorder) Glaucoma Mental health disorder Maternal Grandfather Alzheimer disease Maternal Aunt Hypothyroidism Mental health disorder Paternal Grandmother Unknown family medical history Paternal Grandfather Unknown family medical history Sister Hypothyroidism Paternal Aunt Substance use disorder Maternal Uncle Substance use disorder Social History Household Members Other:: brother Housing: Apartment Are you a primary director of medicare to a significant other at home: No Do you presently have visiting nurse or other home services: No Alcohol intake: never Patient Tobacco Use Status: Former Tobacco user Quit Date: 2011 Tobacco use type: Cigarette Cigarettes Per Day: 20 Years Smoked: 3 e-Cigarette/Vaping Use: Never Used service: No Current occupational status: disabled Cognitive needs: No Hearing needs: No Vision needs: No Behavioral Health Assessment Weight Management Therapy Therapy Notes Details Group therapy on cravings, urges and how to curb unwanted behaviors. Discussed handout on [employer]. Patient shared her success and struggles with the group. She has been consistently exercising. Assessment & Plan Assessment & Plan (1) ADHD (attention deficit hyperactivity disorder), combined type: Code(s): F90.2 - Attention-deficit hyperactivity disorder, combined type (2) Status post sleeve gastrectomy: Code(s): Z90.3 - Acquired absence of stomach [part of] (3) Posttraumatic stress disorder: Code(s): F43.10 - Post-traumatic stress disorder, unspecified Plan Patient struggles due to past complex trauma from childhood hunger and poverty, attachment issues with her mother, seperated from her father, some addiction issues. She would benefit from ongoing EMDR as well as post operative therapy group to address rel. with food. Coding Level of Care Code Grp Psych (60280) Diagnoses ADHD (attention deficit hyperactivity disorder), combined type F90.2 Status post sleeve gastrectomy Z90.3 Posttraumatic stress disorder F43.10 Time Spent (min) 60
== END 2023-06-08 14:32 | disposition home or self-care (01) ==
LOC: HO.HBST 17:22
PROVIDERS: PCP Internal Medicine; Visit Provider Counselor Mental Health
DX: F90.2 Attention-deficit hyperactivity disorder, combined type (principal); Z90.3 Acquired absence of stomach [part of]; F43.10 Post-traumatic stress disorder, unspecified

== ENCOUNTER 2023-06-09 10:00 | Outpatient (AMB) | payer OTHER, SELFPAY ==
--- NOTE | 2023-06-09 11:40 | A.OFFWM_ITS ---
Intake Intake Visit Reasons: VIDEO PO LSG 02/06/22 Allergies cat dander [CAT DANDER] Allergy (Mild, Verified 01/26/23 10:28) EYES- TEAR, ITCHY, face swells dog dander [DOG DANDER] Allergy (Mild, Verified 01/26/23 10:28) EYES- TEAR, ITCHY, hives duloxetine [From CYMBALTA] Adverse Reaction (Intermediate, Verified 01/26/23 10:28) VAGINAL BLEEDING PFSH Medical History Acquired hypothyroidism ADHD (attention deficit hyperactivity disorder) Androgenetic alopecia Annual visit for general adult medical examination with abnormal findings Anxiety Bipolar disorder Body mass index [BMI]40.0-44.9, adult Breast cancer screening by mammogram Cholelithiasis Degenerative disc disease, lumbar Dyslipidemia Environmental and seasonal allergies Fibromyalgia Gastric ulcer Gastritis GERD (gastroesophageal reflux disease) Goiter Heartburn Hirsutism Hypertension Insomnia Irritable bowel syndrome with diarrhea Morbid obesity OCD (obsessive compulsive disorder) Oral abscess PCOS (polycystic ovarian syndrome) PONV (postoperative nausea and vomiting) PTSD (post-traumatic stress disorder) Refused influenza vaccine Restless leg syndrome Rosacea Sacroiliitis Scoliosis 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 Vitamin D deficiency Surgical History History of nasal surgery History of rotator cuff surgery Hx of bariatric surgery Hx of cholecystectomy Hx of colonoscopy Hx of shoulder surgery Miscarriage S/P laparoscopic sleeve gastrectomy Family History Father Diabetes mellitus Mother OCD (obsessive compulsive disorder) EITAN (generalized anxiety disorder) HTN (hypertension) Cancer Cervical cancer Family/Other FH: mental illness Maternal Grandmother EITAN (generalized anxiety disorder) Glaucoma Mental health disorder Maternal Grandfather Alzheimer disease Maternal Aunt Hypothyroidism Mental health disorder Paternal Grandmother Unknown family medical history Paternal Grandfather Unknown family medical history Sister Hypothyroidism Paternal Aunt Substance use disorder Maternal Uncle Substance use disorder Social History Household Members Other:: brother Housing: Apartment Are you a primary managed care specialist to a significant other at home: No Do you presently have visiting nurse or other home services: No Alcohol intake: never Patient Tobacco Use Status: Former Tobacco user Quit Date: 2011 Tobacco use type: Cigarette Cigarettes Per Day: 20 Years Smoked: 3 e-Cigarette/Vaping Use: Never Used service: No Current occupational status: disabled Cognitive needs: No Hearing needs: No Vision needs: No Behavioral Health Assessment Weight Management Therapy Therapy Notes Details Patient started dating again, we discussed this. She feels very drawn to one person who she is seeing, we discussed red flags, also noted father like qualities which she is drawn to, perhaps because of what she has noted about her own father. This person comes with sig. baggage. children, court custody case, two previous marriages, has no visitation with youngest two children. Assessment & Plan Assessment & Plan (1) ADHD (attention deficit hyperactivity disorder), combined type: Code(s): F90.2 - Attention-deficit hyperactivity disorder, combined type (2) Status post sleeve gastrectomy: Code(s): Z90.3 - Acquired absence of stomach [part of] (3) Posttraumatic stress disorder: Code(s): F43.10 - Post-traumatic stress disorder, unspecified Plan Patient struggles due to past complex trauma from childhood hunger and poverty, attachment issues with her mother, seperated from her father, some addiction issues. She would benefit from ongoing EMDR as well as post operative therapy group to address rel. with food. Telehealth Telehealth Location of provider rendering services: other Location of patient: address on file Patient Identification confirmed using: Name, : Yes Telehealth method: video Patient verbally consented to treatment: Yes Patient verbally consented to billing insurance company: Yes Patient informed of any privacy concerns related to visit: Yes Minutes spent on Phone/Video with Pt.: 45 Coding Level of Care Code Tele Psytx 45 mins (24782) Diagnoses ADHD (attention deficit hyperactivity disorder), combined type F90.2 Status post sleeve gastrectomy Z90.3 Posttraumatic stress disorder F43.10 Time Spent (min) 45
== END 2023-06-09 11:40 | disposition home or self-care (01) ==
LOC: HO.HBST 10:40
PROVIDERS: PCP Internal Medicine; Visit Provider Counselor Mental Health
DX: F90.2 Attention-deficit hyperactivity disorder, combined type (principal); Z90.3 Acquired absence of stomach [part of]; F43.10 Post-traumatic stress disorder, unspecified
CPT/HCPCS: 90834

== ENCOUNTER → 2023-06-09 10:00 | Outpatient (BNVA) | payer OTHER, SELFPAY | PROVIDERS: PCP Internal Medicine; Visit Provider Counselor Mental Health ==

== ENCOUNTER 2023-07-04 11:22 | Outpatient (AMB) | payer OTHER, SELFPAY ==
--- NOTE | 2023-07-04 11:11 | A.OFFVIS_ITS ---
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 Pt speaks fluent slovak LSG with Dr. Easley 02/16/22 Preop weight (02/11/2022) 205# weight at 3 MO 176# weight at 6 MO PO 173 weight weight (12/09/22) 188# Weight in Dec 184 current weight -195 Goal 140# Reason for consult elevated BMI Diet Assmnt Details Pt has has some weight regain, mostly related to evening time snacking grazing. She attends groups with [employer] and comes to all workshops. Recently went on vacation for 3 weeks and didn't gain anything. 'I love talking with you, it helps me stay focused Breakfast 5am: Eggs and 1 slice of 647 bread with cheese 9:30am: Fruit - usually orange 12pm Lunch: protein shake Orgain 2 scoops in 8oz 1% milk 3pm? same shake 6pm Dinner: 4oz protein and rice In the evening patient shares I ruin the whole plan sandwich, sometimes peanuts Also puts pecans in her [place] or halo top ice cream- but we discussed portion size and is likely consuming a few hundred calories Vitamins: celebrate MVI, 1 calcium per day Hydration: gatorade zero, but patient notes she could to better with hydration. We talked about how this may be impacting her hunger at night if she is not getting enough fluid Exercise: She has a stationary bike at home Dietary counseling reduction Diagnosis Nutrition problem #1 overweight/obesity As related to (etiology) #1 excess energy intake and physical inactivity As evidenced by (sign/symptom) #1 high BMI Monitoring/Goals Nutrition problem monitoring total energy intake, level of knowledge/skill, total PRO intake, total CHO intake and weight Learning/Education Readiness to learn excellent Stages of change action Most Recent Diabetes Results: No Data to Display [facility] Medical History Acquired hypothyroidism ADHD (attention deficit hyperactivity disorder) Androgenetic alopecia Annual visit for general adult medical examination with abnormal findings Anxiety Bipolar disorder Body mass index [BMI]40.0-44.9, adult Breast cancer screening by mammogram Cholelithiasis Degenerative disc disease, lumbar Dyslipidemia Environmental and seasonal allergies Fibromyalgia Gastric ulcer Gastritis GERD (gastroesophageal reflux disease) Goiter Heartburn Hirsutism Hypertension Insomnia Irritable bowel syndrome with diarrhea Morbid obesity OCD (obsessive compulsive disorder) Oral abscess PCOS (polycystic ovarian syndrome) PONV (postoperative nausea and vomiting) PTSD (post-traumatic stress disorder) Refused influenza vaccine Restless leg syndrome Rosacea Sacroiliitis Scoliosis 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 Vitamin D deficiency Surgical History History of nasal surgery History of rotator cuff surgery Hx of bariatric surgery Hx of cholecystectomy Hx of colonoscopy Hx of shoulder surgery Miscarriage S/P laparoscopic sleeve gastrectomy Family History Father Diabetes mellitus Mother OCD (obsessive compulsive disorder) EITAN (generalized anxiety disorder) HTN (hypertension) Cancer Cervical cancer Family/Other FH: mental illness Maternal Grandmother EITAN (generalized anxiety disorder) Glaucoma Mental health disorder Maternal Grandfather Alzheimer disease Maternal Aunt Hypothyroidism Mental health disorder Paternal Grandmother Unknown family medical history Paternal Grandfather Unknown family medical history Sister Hypothyroidism Paternal Aunt Substance use disorder Maternal Uncle Substance use disorder Social History Household Members Other:: brother Housing: Apartment Are you a primary day care attendant to a significant other at home: No Do you presently have visiting nurse or other home services: No Alcohol intake: never Patient Tobacco Use Status: Former Tobacco user Quit Date: 2011 Tobacco use type: Cigarette Cigarettes Per Day: 20 Years Smoked: 3 e-Cigarette/Vaping Use: Never Used service: No Current occupational status: disabled Cognitive needs: No Hearing needs: No Vision needs: No Assessment & Plan Assessment & Plan (1) Obesity (BMI 30-39.9): Code(s): E66.9 - Obesity, unspecified Patient Instructions: Just returned from vacation. Has not had a chance to implement the changes we discussed last time due to the change in routine. Will follow-up in 2 weeks 07/18 1pm to check in the goals: Decrease snacking, limiting nuts intake, adding vegetables to dinner, adequate hydration Telehealth Telehealth Location of provider rendering services: practice address Location of patient: address on file Patient Identification confirmed using: Name, : Yes Telehealth method: video Patient verbally consented to treatment: Yes Patient verbally consented to billing insurance company: Yes Patient informed of any privacy concerns related to visit: Yes Minutes spent on Phone/Video with Pt.: 20 Coding Level of Care Code Nutr Indiv Subseq ([id number]) Diagnoses Obesity (BMI 30-39.9) E66.9 Time Spent (min) 20
== END 2023-07-04 11:28 | disposition home or self-care (01) ==
LOC: HO.HBS 11:22
PROVIDERS: PCP Internal Medicine; Visit Provider Dietitian, Registered
DX: E66.9 Obesity, unspecified (principal)

== ENCOUNTER → 2023-07-04 11:22 | Outpatient (BNVA) | payer OTHER, SELFPAY | PROVIDERS: PCP Internal Medicine; Visit Provider Dietitian, Registered | DX: E66.9 Obesity, unspecified (principal); Z98.84 Bariatric surgery status; Z71.3 Dietary counseling and surveillance | CPT/HCPCS: 97803 ==

== ENCOUNTER 2023-07-10 08:47 | Outpatient (AMB) | payer OTHER, SELFPAY ==
--- NOTE | 2023-07-10 08:47 | MHC.OFFVIS ---
Intake Intake Visit Reasons: F/Up PCOS Intake Note: PCOS follow up visit. Director Of Home Care Hospice Required: No Allergies cat dander [CAT DANDER] Allergy (Mild, Verified 07/10/23 11:10) EYES- TEAR, ITCHY, face swells dog dander [DOG DANDER] Allergy (Mild, Verified 07/10/23 11:10) EYES- TEAR, ITCHY, hives duloxetine [From CYMBALTA] Adverse Reaction (Intermediate, Verified 07/10/23 11:10) VAGINAL BLEEDING Medication List - Last Reconciled 07/10/23 by Adele Cox DO acetaminophen ER (Tylenol 8 Hour) 650 mg PO Q12H calcium carbonate-vitamin D3 250 mg-3.125 mcg (125 unit) 1 tab PO BID cetirizine 10 mg PO DAILY PRN dextroamphetamine-amphetamine 30 mg ER (Adderall XR) 1 cap PO QAM diclofenac sodium 1% (Voltaren Arthritis Pain) 2 grams topical BID fluticasone propionate 50 mcg/actuation 2 sprays intranasal DAILY glycopyrrolate 1 mg PO BID ivermectin 1% (Soolantra) 1 appl topical DAILY levothyroxine 50 mcg PO DAILY 30 days Lyrica (pregabalin) 75 mg PO BID NS metformin 500 mg PO BID 30 days multivitamin 1 tab PO DAILY spironolactone 50 mg PO DAILY vilazodone 40 mg PO DAILY HPI HPI Comments History of Present Illness Details 42 YO Female with a PMHx of Hirsutism and hypothyroidism who is seen in F/U. She was previously followed by Dr. Friedman. She underwent a sleeve gastrectomy 02/16/2022. She has lost 25 lbs since that time. She reports a long history of significant hirsutism. She was started on spironolactone 100 mg PO daily by her exceptional children's teacher, and reports that symptoms somewhat improved. It did not appear she had undergone a full workup for hyperandrogenism, so she was asked to stop the spironolactone for 4 weeks, and then have labs completed. She completed labs in mid August 2021 and these were all WNL. Her spironolactone was stopped and she was started instead on Metformin 500 mg PO BID. She remained on this. Menses have normalized after starting metformin. She has a history of hypothyroidism and remains on 50 mcg PO daily of levothyroxine. She had a thyroid US completed which revealed no nodules. Labs: Laboratory Tests 05/09/22 10/20/22 10/20/22 09:02 08:30 08:30 Sodium 139 136 Potassium 4.0 4.1 Creatinine 0.91 0.94 Estimated GFR > 60 > 60 Hemoglobin A1c % 4.9 AST 23 ALT 43 H Triglycerides 71 Cholesterol 214 LDL Cholesterol, C alc 139 HDL Cholesterol 61 25-OH Vitamin D To maximus TSH Free T4 1.16 Total Testosterone Fr Testosterone Di sonja Sex Hormone Bind G lob PTH Intact Calcium (PTH Intac t) 10/20/22 10/20/22 10/20/22 08:30 08:30 08:30 Sodium Potassium Creatinine Estimated GFR Hemoglobin A1c % AST ALT Triglycerides Cholesterol LDL Cholesterol, C alc HDL Cholesterol 25-OH Vitamin D To maximus 35.3 TSH 1.89 Free T4 1.05 Total Testosterone 9 Fr Testosterone Di sonja 1.2 Sex Hormone Bind G lob 47 PTH Intact 41 Calcium (PTH Intac t) 9.6 PFSH Medical History Acquired hypothyroidism ADHD (attention deficit hyperactivity disorder) Androgenetic alopecia Annual visit for general adult medical examination with abnormal findings Anxiety Bipolar disorder Body mass index [BMI]40.0-44.9, adult Breast cancer screening by mammogram Cholelithiasis Degenerative disc disease, lumbar Dyslipidemia Environmental and seasonal allergies Fibromyalgia Gastric ulcer Gastritis GERD (gastroesophageal reflux disease) Goiter Heartburn Hirsutism Hypertension Insomnia Irritable bowel syndrome with diarrhea Morbid obesity OCD (obsessive compulsive disorder) Oral abscess PCOS (polycystic ovarian syndrome) PONV (postoperative nausea and vomiting) PTSD (post-traumatic stress disorder) Refused influenza vaccine Restless leg syndrome Rosacea Sacroiliitis Scoliosis 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 Vitamin D deficiency Surgical History History of nasal surgery History of rotator cuff surgery Hx of bariatric surgery Hx of cholecystectomy Hx of colonoscopy Hx of shoulder surgery Miscarriage S/P laparoscopic sleeve gastrectomy Family History Father Diabetes mellitus Mother OCD (obsessive compulsive disorder) EITAN (generalized anxiety disorder) HTN (hypertension) Cancer Cervical cancer Family/Other FH: mental illness Maternal Grandmother EITAN (generalized anxiety disorder) Glaucoma Mental health disorder Maternal Grandfather Alzheimer disease Maternal Aunt Hypothyroidism Mental health disorder Paternal Grandmother Unknown family medical history Paternal Grandfather Unknown family medical history Sister Hypothyroidism Paternal Aunt Substance use disorder Maternal Uncle Substance use disorder Social History Household Members Other:: brother Housing: Apartment Are you a primary customer care assistant to a significant other at home: No Do you presently have visiting nurse or other home services: No Alcohol intake: never Patient Tobacco Use Status: Former Tobacco user Quit Date: 2011 Tobacco use type: Cigarette Cigarettes Per Day: 20 Years Smoked: 3 e-Cigarette/Vaping Use: Never Used service: No Current occupational status: disabled Cognitive needs: No Hearing needs: No Vision needs: No Assessment & Plan Assessment & Plan (1) PCOS (polycystic ovarian syndrome): Code(s): E28.2 - Polycystic ovarian syndrome Plan: Patient with a diagnosis of PCOS. She had hirsutism and irregular menses. Labs were all WNL ruling out any other potential causes of her hirsutism. Menses are now WNL on metformin. Will continue. She will then F/U with her PCP for further management. All of her questions were answered. She is in agreement with this plan of care. I spent 20 minutes in reviewing the record, seeing the patient and documenting in the medical record, including 5 minutes on the phone with the Patient. (2) Acquired hypothyroidism: Code(s): E03.9 - Hypothyroidism, unspecified Plan: Patient with hypothyroidism. Will continue with levothyroxine 50 mcg PO daily. Telehealth Telehealth Location of provider rendering services: practice address Location of patient: address on file Patient Identification confirmed using: Name, : Yes Telehealth method: voice only Patient verbally consented to treatment: Yes Patient verbally consented to billing insurance company: Yes Patient informed of any privacy concerns related to visit: Yes Coding Level of Care Code Tele Est Pt Level 3 (92601) Diagnoses PCOS (polycystic ovarian syndrome) E28.2 Acquired hypothyroidism E03.9
== END 2023-07-10 14:40 | disposition home or self-care (01) ==
LOC: HO.ENCR 08:47
PROVIDERS: PCP Internal Medicine; Visit Provider Internal Medicine
DX: E28.2 Polycystic ovarian syndrome (principal); E03.9 Hypothyroidism, unspecified
CPT/HCPCS: 99213

== ENCOUNTER → 2023-07-10 08:47 | Outpatient (BNVA) | payer OTHER, SELFPAY | PROVIDERS: PCP Internal Medicine; Visit Provider Internal Medicine ==

== ENCOUNTER 2023-07-12 09:20 | Outpatient (REF) | payer OTHER, SELFPAY ==
[2023-07-12 11:08] LABS: MANUAL DIFF FLAG NO
[2023-07-12 11:53] LABS: Basophils Absolute Auto 0.2 X10*3/uL (0.0-0.2); Basophils Percent Auto 2.2 % (0-2); Eosinophils Absolute Auto 0.1 X10*3/uL (0.0-0.4); Hematocrit 41.4 % (37.0-47.0); Hemoglobin 13.6 g/dl (12.0-16.0); Imm Gran Abs Auto 0.01 X10*3/uL (0.00-0.03); Imm Gran Pct Auto 0.1 % (0.0-0.4); Lymphocytes Absolute Auto 2.1 X10*3/uL (1.2-4.9); Lymphocytes Percent Auto 29.9 % (20-40); Mean Corpuscular HGB Conc 32.9 g/dl (31.0-35.0); Mean Corpuscular Hemoglobin 31.4 pg (27.0-33.0); Mean Corpuscular Volume 95.6 fL (80.0-98.0); Mean Platelet Volume 10.9 fL (9.4-12.3); Monocytes Absolute Auto 0.5 X10*3/uL (0.1-1.2); Monocytes Percent Auto 7.2 % (2-11); Neutrophils Absolute Auto 4.1 x10*3/uL (2.0-8.3); Neutrophils Percent Auto 58.6 % (45-73); Platelet Count 264 X10*3/uL (160-400); Red Blood Count 4.33 X10*6/uL (4.20-5.50); Red Cell Distribution Width 12.3 % (11.0-16.0)
[2023-07-12 11:56] LABS: Estimated Average Glucose 94 mg/dL; Hemoglobin A1c % 4.9 % (<6.0)
[2023-07-12 12:45] LABS: Anion Gap 10 (12-20); Blood Urea Nitrogen 18 mg/dL (9-16); C Reactive Protein 0.16 mg/dL (< or = 0.50); Calcium 9.7 mg/dL (8.4-10.2); Carbon Dioxide 29 mmol/L (22-29); Chloride 104 mmol/L (96-108); Cholesterol 210 mg/dL (<200); Estimated Glomerular Filt Rate > 60; Glucose Random 84 mg/dL (60-115); HDL Cholesterol 56 mg/dL (>40); Iron 158 mcg/dL (30-160); LDL Cholesterol Calculated 137 mg/dL (<100); Percent Iron Saturation 55 % (15-50); Potassium 4.6 mmol/L (3.3-5.1); Sodium 138 mmol/L (135-145); Total Iron Binding Capacity 287 mcg/dL (228-428); Triglycerides 85 mg/dL (<150); Unsaturated Iron Binding 129 ug/dL
[2023-07-12 12:47] LABS: Ferritin 88 ng/mL (10-250); Insulin 4 uU/mL (2-29); TSH reflex Free T4 1.49 uIU/mL (0.32-4.0); Vitamin D 25-OH Total 56.3 ng/mL (>30)
[2023-07-12 13:05] LABS: Folate 9.9 ng/mL (> or = 4.0); Vitamin B12 663 pg/mL (200-900)
[2023-07-13 10:48] LABS: Calcium (PTHI) 9.5 mg/dL (8.6-10.2); PTHI 48 pg/mL (16-77)
[2023-07-16 01:59] LABS: Zinc 104 mcg/dL (60-130)
[2023-07-19 00:03] LABS: Vitamin A 108 mcg/dL (38-98)
[2023-07-19 08:43] LABS: Vitamin B1 9 nmol/L (8-30)
== END 2023-07-12 09:21 | disposition home or self-care (01) ==
LOC: HO.LAB 09:20
PROVIDERS: PCP Internal Medicine; Visit Provider Physician Assistant Surgical
DX: E55.9 Vitamin D deficiency, unspecified (principal); E78.5 Hyperlipidemia, unspecified; I10 Essential (primary) hypertension; M79.7 Fibromyalgia; Z98.84 Bariatric surgery status
CPT/HCPCS: 36415; 80048; 80061; 82306; 82607; 82728; 82746; 83036; 83525; 83540; 83970; 84425; 84443; 84590; 84630; 85025; 86140; 99212

== ENCOUNTER 2023-07-12 09:34 | Outpatient (AMB) | payer OTHER, SELFPAY ==
--- NOTE | 2023-07-12 09:39 | A.OFFVIS_ITS ---
Intake Vital Signs 07/12/23 09:42 Height 5 ft 3 in Weight 192 lb 10.944 oz BMI 34.1 BP 94/70 Blood Pressure Location Lt brachial Position Sitting Pulse 79 Pulse Source Pulse Oximeter Temp 97.4 F Temp Source Skin Pulse Oximetry (%) 97 Oxygen Delivery Method Room Air Intake Visit Reasons: f/u for FM Intake Note: Here for fibromyalgia follow up. Out of Lyrica since 06/2023. c/o dizziness triggered by low BP s/o bariatric surgery last year. Rehabilitation Counsellor Required: No Accompanied by: Self / Same As Patient Allergies cat dander [CAT DANDER] Allergy (Mild, Verified 07/12/23 09:48) EYES- TEAR, ITCHY, face swells dog dander [DOG DANDER] Allergy (Mild, Verified 07/12/23 09:48) EYES- TEAR, ITCHY, hives duloxetine [From CYMBALTA] Adverse Reaction (Intermediate, Verified 07/12/23 09:48) VAGINAL BLEEDING HPI HPI Comments History of Present Illness Details The patient returns for evaluation of her fibromyalgia. She was doing reasonably well with the brand-name Lyrica at 75 mg twice a day in addition to her Adderall, topical diclofenac, Abilify, and vilazodone. However she has been unable to get the brand name Lyrica this month. We had sent in the prescription. She claims pharmacy is unable to locate a supply in their warehouse. She apparently is required to go to that pharmacy by her insurance. She notes some increase in stiffness, fatigue, and the irregularity of her sleep being off the Lyrica. She says she was hospitalized for depression and suicidal ideation about 7 years ago. Brand-name Lyrica was one of the medications she believes that helped her feel better although of course probably she had changes in her other medications at the time of the hospitalization. She denies any suicidal thoughts now, she just has increased pain, sleepiness, and lower energy. [facility] Medical History Acquired hypothyroidism ADHD (attention deficit hyperactivity disorder) Androgenetic alopecia Annual visit for general adult medical examination with abnormal findings Anxiety Bipolar disorder Body mass index [BMI]40.0-44.9, adult Breast cancer screening by mammogram Cholelithiasis Degenerative disc disease, lumbar Dyslipidemia Environmental and seasonal allergies Fibromyalgia Gastric ulcer Gastritis GERD (gastroesophageal reflux disease) Goiter Heartburn Hirsutism Hypertension Insomnia Irritable bowel syndrome with diarrhea Morbid obesity OCD (obsessive compulsive disorder) Oral abscess PCOS (polycystic ovarian syndrome) PONV (postoperative nausea and vomiting) PTSD (post-traumatic stress disorder) Refused influenza vaccine Restless leg syndrome Rosacea Sacroiliitis Scoliosis 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 Vitamin D deficiency Surgical History History of nasal surgery History of rotator cuff surgery Hx of bariatric surgery Hx of cholecystectomy Hx of colonoscopy Hx of shoulder surgery Miscarriage S/P laparoscopic sleeve gastrectomy Family History Father Diabetes mellitus Mother OCD (obsessive compulsive disorder) EITAN (generalized anxiety disorder) HTN (hypertension) Cancer Cervical cancer Family/Other FH: mental illness Maternal Grandmother EITAN (generalized anxiety disorder) Glaucoma Mental health disorder Maternal Grandfather Alzheimer disease Maternal Aunt Hypothyroidism Mental health disorder Paternal Grandmother Unknown family medical history Paternal Grandfather Unknown family medical history Sister Hypothyroidism Paternal Aunt Substance use disorder Maternal Uncle Substance use disorder Social History Household Members Other:: brother Housing: Apartment Are you a primary med care manager to a significant other at home: No Do you presently have visiting nurse or other home services: No Alcohol intake: never Patient Tobacco Use Status: Former Tobacco user Quit Date: 2011 Tobacco use type: Cigarette Cigarettes Per Day: 20 Years Smoked: 3 e-Cigarette/Vaping Use: Never Used service: No Current occupational status: disabled Cognitive needs: No Hearing needs: No Vision needs: No Review of Systems Const Details: Low energy. Negative for appetite change, weight change, fever, chills, malaise Card Details: Negative chest pain, edema and syncope Neuro Details: Negative for epilepsy, palsy, stroke, changes in speech, tingling and weakness Psych Details: Anxious about her fibromyalgia pains. Not apparently more depressed than usual. Endo Details: Negative for polyuria and polydypsia Daniel/Lymph Details: Negative for excessive bruising or bleeding. Physical Exam Vital Signs: Last Vital Signs Temp 97.4 F 07/12/23 09:42 Pulse 79 07/12/23 09:42 BP 94/70 07/12/23 09:42 Pulse Ox 97 07/12/23 09:42 Oxygen Delivery Method Room Air 07/12/23 09:42 BMI result Body Mass Index 34.1 APPEARANCE: Patient in no acute distress EYES no redness, pupils equal and reactive to light, eyelids normal EXTREMITIES: No edema, no calf tenderness, normal peripheral pulses. NEURO: Oriented and alert x3. No focal weakness. Reflexes symmetric. Gait normal. JOINT EXAM:?? Cervical Spine: Full range of motion without pain; no tenderness. Thoracic Spine:?No tenderness on palpation. Lumbar Spine: Alignment normal.? Full range of motion with mild pain at 60 degrees of flexion. Slight lumbar muscle tenderness. Hands: Normal pain-free range of motion with slight tenderness across the base of the thumbs in the PIP joints but no triggering, swelling, increased warmth or erythema. Wrists: Normal pain-free range of motion without tenderness, swelling, increased warmth or erythema. Elbows: Mild pain at the extremes of normal flexion or extension with some slight dorsal tenderness but no swelling, increased warmth or erythema. Shoulders: LEFT:? ? Full range of motion without pain. No tenderness, weakness, swelling, increased warmth or erythema. ? RIGHT:? Full range of motion without pain. No tenderness, weakness, swelling, increased warmth or erythema. Hips:? Full range of motion without pain. Hip bursa: No tenderness. Knees:?? Normal pain-free range of motion with slight patellofemoral crepitus and some mild medial compartment tenderness but no effusion, soft tissue swelling, increased warmth or erythema.? Ankles:? Normal pain-free range of motion without tenderness, swelling, increased warmth or erythema. Feet:? Normal pain-free range of motion without tenderness, swelling, increased warmth or erythema. Tender points: mild tenderness to digital palpation at the occiput, trapezius, second rib, lateral epicondyle, knees, greater trochanter and gluteal areas bilaterally. ? Assessment & Plan Assessment & Plan (1) Fibromyalgia: Code(s): M79.7 - Fibromyalgia Plan Fibromyalgia with some increase in fatigue and sleep this symptoms being off the Lyrica. On closer questioning she claims that the insurance will approve the brand-name but that the pharmacy has not been able to locate any brand-name Lyrica at within 20 miles. I told her we could try try to find other pharmacies that might have the drug but that may take a while. We could also trial the regular generic Lyrica or pregabalin. I told her it is unlikely that would be much of a difference in her clinical response to that. She agrees to that for now so I sent the pregabalin into her pharmacy and asked them to hold for now the ran aim Lyrica. A follow-up in 4-6 months seems reasonable. Medications: New pregabalin 75 mg PO BID 60 caps 3RF M79.7 - Fibromyalgia Coding Level of Care Code Est Pt Level 3 (68657) Diagnoses Fibromyalgia M79.7
[2023-07-12 09:42] VITALS: BP 94/70; PULSE 79; TEMP 36.3; O2SAT 97; BMI 34.1
== END 2023-07-12 10:32 | disposition home or self-care (01) ==
PROVIDERS: PCP Internal Medicine; Visit Provider Internal Medicine Rheumatology
DX: M79.7 Fibromyalgia (principal)
CPT/HCPCS: 99213

== ENCOUNTER 2023-07-21 10:59 | Outpatient (AMB) | payer OTHER, SELFPAY ==
--- NOTE | 2023-07-21 11:51 | MHC.WMTHER ---
Intake Intake Visit Reasons: VIDEO PO LSG 02/06/22 Allergies cat dander [CAT DANDER] Allergy (Mild, Verified 07/12/23 09:48) EYES- TEAR, ITCHY, face swells dog dander [DOG DANDER] Allergy (Mild, Verified 07/12/23 09:48) EYES- TEAR, ITCHY, hives duloxetine [From CYMBALTA] Adverse Reaction (Intermediate, Verified 07/12/23 09:48) VAGINAL BLEEDING PFSH Medical History Acquired hypothyroidism ADHD (attention deficit hyperactivity disorder) Androgenetic alopecia Annual visit for general adult medical examination with abnormal findings Anxiety Bipolar disorder Body mass index [BMI]40.0-44.9, adult Breast cancer screening by mammogram Cholelithiasis Degenerative disc disease, lumbar Dyslipidemia Environmental and seasonal allergies Fibromyalgia Gastric ulcer Gastritis GERD (gastroesophageal reflux disease) Goiter Heartburn Hirsutism Hypertension Insomnia Irritable bowel syndrome with diarrhea Morbid obesity OCD (obsessive compulsive disorder) Oral abscess PCOS (polycystic ovarian syndrome) PONV (postoperative nausea and vomiting) PTSD (post-traumatic stress disorder) Refused influenza vaccine Restless leg syndrome Rosacea Sacroiliitis Scoliosis 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 Vitamin D deficiency Surgical History History of nasal surgery History of rotator cuff surgery Hx of bariatric surgery Hx of cholecystectomy Hx of colonoscopy Hx of shoulder surgery Miscarriage S/P laparoscopic sleeve gastrectomy Family History Father Diabetes mellitus Mother OCD (obsessive compulsive disorder) EITAN (generalized anxiety disorder) HTN (hypertension) Cancer Cervical cancer Family/Other FH: mental illness Maternal Grandmother EITAN (generalized anxiety disorder) Glaucoma Mental health disorder Maternal Grandfather Alzheimer disease Maternal Aunt Hypothyroidism Mental health disorder Paternal Grandmother Unknown family medical history Paternal Grandfather Unknown family medical history Sister Hypothyroidism Paternal Aunt Substance use disorder Maternal Uncle Substance use disorder Social History Household Members Other:: brother Housing: Apartment Are you a primary special needs child caregiver to a significant other at home: No Do you presently have visiting nurse or other home services: No Alcohol intake: never Patient Tobacco Use Status: Former Tobacco user Quit Date: 2011 Tobacco use type: Cigarette Cigarettes Per Day: 20 Years Smoked: 3 e-Cigarette/Vaping Use: Never Used service: No Current occupational status: disabled Cognitive needs: No Hearing needs: No Vision needs: No Behavioral Health Assessment Weight Management Therapy Therapy Notes Details First session after 4 week trip. Jaz talked about her new rel. how well it is going, how great she is being treated, drastic changes to her life. She described adhering to healthy lifestyle while away, exercising, swimming, eating fish. Even lost 1lb while away. She would like to continue EMDR next week. Assessment & Plan Assessment & Plan (1) ADHD (attention deficit hyperactivity disorder), combined type: Code(s): F90.2 - Attention-deficit hyperactivity disorder, combined type (2) Status post sleeve gastrectomy: Code(s): Z90.3 - Acquired absence of stomach [part of] (3) Posttraumatic stress disorder: Code(s): F43.10 - Post-traumatic stress disorder, unspecified Plan Patient struggles due to past complex trauma from childhood hunger and poverty, attachment issues with her mother, seperated from her father, some addiction issues. She would benefit from ongoing EMDR as well as post operative therapy group to address rel. with food. Telehealth Telehealth Location of provider rendering services: other Location of patient: address on file Patient Identification confirmed using: Name, : Yes Telehealth method: video Patient verbally consented to treatment: Yes Patient verbally consented to billing insurance company: Yes Patient informed of any privacy concerns related to visit: Yes Minutes spent on Phone/Video with Pt.: 45 Coding Level of Care Code Tele Psytx 45 mins (13319) Diagnoses ADHD (attention deficit hyperactivity disorder), combined type F90.2 Status post sleeve gastrectomy Z90.3 Posttraumatic stress disorder F43.10 Time Spent (min) 45
== END 2023-07-21 11:50 | disposition home or self-care (01) ==
LOC: HO.HBST 10:59
PROVIDERS: PCP Internal Medicine; Visit Provider Counselor Mental Health
DX: F90.2 Attention-deficit hyperactivity disorder, combined type (principal); Z90.3 Acquired absence of stomach [part of]; F43.10 Post-traumatic stress disorder, unspecified
CPT/HCPCS: 90834

== ENCOUNTER → 2023-07-21 10:59 | Outpatient (BNVA) | payer SELFPAY | PROVIDERS: PCP Internal Medicine; Visit Provider Counselor Mental Health | DX: F90.2 Attention-deficit hyperactivity disorder, combined type (principal); Z90.3 Acquired absence of stomach [part of]; F43.10 Post-traumatic stress disorder, unspecified ==

== ENCOUNTER 2023-07-26 19:04 | Outpatient (AMB) | payer OTHER, SELFPAY ==
--- NOTE | 2023-08-02 15:03 | A.OFFWM_ITS ---
Intake Intake Visit Reasons: Group Therapy Allergies cat dander [CAT DANDER] Allergy (Mild, Verified 07/12/23 09:48) EYES- TEAR, ITCHY, face swells dog dander [DOG DANDER] Allergy (Mild, Verified 07/12/23 09:48) EYES- TEAR, ITCHY, hives duloxetine [From CYMBALTA] Adverse Reaction (Intermediate, Verified 07/12/23 09:48) VAGINAL BLEEDING PFSH Medical History Acquired hypothyroidism ADHD (attention deficit hyperactivity disorder) Androgenetic alopecia Annual visit for general adult medical examination with abnormal findings Anxiety Bipolar disorder Body mass index [BMI]40.0-44.9, adult Breast cancer screening by mammogram Cholelithiasis Degenerative disc disease, lumbar Dyslipidemia Environmental and seasonal allergies Fibromyalgia Gastric ulcer Gastritis GERD (gastroesophageal reflux disease) Goiter Heartburn Hirsutism Hypertension Insomnia Irritable bowel syndrome with diarrhea Morbid obesity OCD (obsessive compulsive disorder) Oral abscess PCOS (polycystic ovarian syndrome) PONV (postoperative nausea and vomiting) PTSD (post-traumatic stress disorder) Refused influenza vaccine Restless leg syndrome Rosacea Sacroiliitis Scoliosis 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 Vitamin D deficiency Surgical History History of nasal surgery History of rotator cuff surgery Hx of bariatric surgery Hx of cholecystectomy Hx of colonoscopy Hx of shoulder surgery Miscarriage S/P laparoscopic sleeve gastrectomy Family History Father Diabetes mellitus Mother OCD (obsessive compulsive disorder) EITAN (generalized anxiety disorder) HTN (hypertension) Cancer Cervical cancer Family/Other FH: mental illness Maternal Grandmother EITAN (generalized anxiety disorder) Glaucoma Mental health disorder Maternal Grandfather Alzheimer disease Maternal Aunt Hypothyroidism Mental health disorder Paternal Grandmother Unknown family medical history Paternal Grandfather Unknown family medical history Sister Hypothyroidism Paternal Aunt Substance use disorder Maternal Uncle Substance use disorder Social History Household Members Other:: brother Housing: Apartment Are you a primary insurance healthcare representative to a significant other at home: No Do you presently have visiting nurse or other home services: No Alcohol intake: never Patient Tobacco Use Status: Former Tobacco user Quit Date: 2011 Tobacco use type: Cigarette Cigarettes Per Day: 20 Years Smoked: 3 e-Cigarette/Vaping Use: Never Used service: No Current occupational status: disabled Cognitive needs: No Hearing needs: No Vision needs: No Behavioral Health Assessment Weight Management Therapy Therapy Notes Details Group therapy session on boundaries. Patient shared and offered support appropriately. PT is post operative weight loss surgery and looking for group therapy support. She reported struggling at night with snacking and eating, relating the feeling of being full with safety. Pt reported that she often lays in bed with her tablet and then will snack. We discussed the differences between actual hunger and emotional eating. Pt works out at night and may be in need of more protein as she identified being physically hungry after her workout. Presenting Concerns Referral Source provider Reason for referral post weight loss surgery seeking group therapy Precipitating Event weight loss surgery/emotional eating. Living Situation Current Living Situation Rent At risk of losing current housing? No Satisfied with current living situation? Yes Comments Pt lives with her brother who she raised from due to age difference. Pt also has a dog. Assessment & Plan Assessment & Plan (1) ADHD (attention deficit hyperactivity disorder), combined type: Code(s): F90.2 - Attention-deficit hyperactivity disorder, combined type (2) Status post sleeve gastrectomy: Code(s): Z90.3 - Acquired absence of stomach [part of] (3) Posttraumatic stress disorder: Code(s): F43.10 - Post-traumatic stress disorder, unspecified Plan Patient struggles due to past complex trauma from childhood hunger and poverty, attachment issues with her mother, seperated from her father, some addiction issues. She would benefit from ongoing EMDR as well as post operative therapy group to address rel. with food. Coding Level of Care Code Grp Psych (38626) Diagnoses ADHD (attention deficit hyperactivity disorder), combined type F90.2 Status post sleeve gastrectomy Z90.3 Posttraumatic stress disorder F43.10 Time Spent (min) 60
== END 2023-07-28 09:56 | disposition home or self-care (01) ==
PROVIDERS: PCP Internal Medicine; Visit Provider Counselor Mental Health
DX: F90.2 Attention-deficit hyperactivity disorder, combined type (principal); Z90.3 Acquired absence of stomach [part of]; F43.10 Post-traumatic stress disorder, unspecified

== ENCOUNTER → 2023-07-26 19:04 | Outpatient (BNVA) | payer OTHER, SELFPAY | PROVIDERS: PCP Internal Medicine; Visit Provider Counselor Mental Health | DX: F50.89 Other specified eating disorder (principal); F90.2 Attention-deficit hyperactivity disorder, combined type; F43.10 Post-traumatic stress disorder, unspecified; Z90.3 Acquired absence of stomach [part of] | CPT/HCPCS: 90853 ==

== ENCOUNTER → 2023-07-27 13:53 | Outpatient (BNVA) | payer OTHER, SELFPAY | PROVIDERS: PCP Internal Medicine; Visit Provider Dietitian, Registered | DX: E66.9 Obesity, unspecified (principal) | CPT/HCPCS: 97803 ==

== ENCOUNTER 2023-08-03 08:02 | Outpatient (REF) | payer OTHER, SELFPAY ==
[2023-08-03 09:47] LABS: Alanine Aminotransferase 16 U/L (0-31); Albumin Level 4.2 g/dL (3.5-5.0); Alkaline Phosphatase 52 U/L (39-117); Anion Gap 10 (12-20); Aspartate Amino Transferase 18 U/L (5-31); Bilirubin Total 0.4 mg/dL (0.0-1.0); Blood Urea Nitrogen 24 mg/dL (9-16); Calcium 9.6 mg/dL (8.4-10.2); Carbon Dioxide 29 mmol/L (22-29); Chloride 105 mmol/L (96-108); Estimated Glomerular Filt Rate > 60; Glucose Random 85 mg/dL (60-115); Potassium 4.2 mmol/L (3.3-5.1); Sodium 140 mmol/L (135-145); Total Protein 6.9 g/dL (6.5-8.0)
[2023-08-03 10:11] LABS: Free T4 (Free Thyroxine) 1.03 ng/dL (0.71-1.85); Thyroid Stimulating Hormone 1.49 uIU/mL (0.32-4.0)
[2023-08-10 18:44] LABS: Vitamin A 70 mcg/dL (38-98)
== END 2023-08-03 08:03 | disposition home or self-care (01) ==
LOC: HO.LAB 08:02
PROVIDERS: Internal Medicine; PCP Internal Medicine; Visit Provider Physician Assistant Surgical
DX: E28.2 Polycystic ovarian syndrome (principal); E03.9 Hypothyroidism, unspecified; E66.9 Obesity, unspecified; Z98.84 Bariatric surgery status
CPT/HCPCS: 36415; 80053; 84439; 84443; 84590

== ENCOUNTER 2023-08-04 10:34 | Outpatient (AMB) | payer OTHER, SELFPAY ==
--- NOTE | 2023-08-04 10:59 | A.OFFWM_ITS ---
Intake Intake Visit Reasons: VIDEO PO LSG 02/06/22 Allergies cat dander [CAT DANDER] Allergy (Mild, Verified 07/12/23 09:48) EYES- TEAR, ITCHY, face swells dog dander [DOG DANDER] Allergy (Mild, Verified 07/12/23 09:48) EYES- TEAR, ITCHY, hives duloxetine [From CYMBALTA] Adverse Reaction (Intermediate, Verified 07/12/23 09:48) VAGINAL BLEEDING PFSH Medical History Acquired hypothyroidism ADHD (attention deficit hyperactivity disorder) Androgenetic alopecia Annual visit for general adult medical examination with abnormal findings Anxiety Bipolar disorder Body mass index [BMI]40.0-44.9, adult Breast cancer screening by mammogram Cholelithiasis Degenerative disc disease, lumbar Dyslipidemia Environmental and seasonal allergies Fibromyalgia Gastric ulcer Gastritis GERD (gastroesophageal reflux disease) Goiter Heartburn Hirsutism Hypertension Insomnia Irritable bowel syndrome with diarrhea Morbid obesity OCD (obsessive compulsive disorder) Oral abscess PCOS (polycystic ovarian syndrome) PONV (postoperative nausea and vomiting) PTSD (post-traumatic stress disorder) Refused influenza vaccine Restless leg syndrome Rosacea Sacroiliitis Scoliosis 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 Vitamin D deficiency Surgical History History of nasal surgery History of rotator cuff surgery Hx of bariatric surgery Hx of cholecystectomy Hx of colonoscopy Hx of shoulder surgery Miscarriage S/P laparoscopic sleeve gastrectomy Family History Father Diabetes mellitus Mother OCD (obsessive compulsive disorder) EITAN (generalized anxiety disorder) HTN (hypertension) Cancer Cervical cancer Family/Other FH: mental illness Maternal Grandmother EITAN (generalized anxiety disorder) Glaucoma Mental health disorder Maternal Grandfather Alzheimer disease Maternal Aunt Hypothyroidism Mental health disorder Paternal Grandmother Unknown family medical history Paternal Grandfather Unknown family medical history Sister Hypothyroidism Paternal Aunt Substance use disorder Maternal Uncle Substance use disorder Social History Household Members Other:: brother Housing: Apartment Are you a primary personal care service provider to a significant other at home: No Do you presently have visiting nurse or other home services: No Alcohol intake: never Patient Tobacco Use Status: Former Tobacco user Quit Date: 2011 Tobacco use type: Cigarette Cigarettes Per Day: 20 Years Smoked: 3 e-Cigarette/Vaping Use: Never Used service: No Current occupational status: disabled Cognitive needs: No Hearing needs: No Vision needs: No Behavioral Health Assessment Weight Management Therapy Therapy Notes Details EMDR session on memory of dad's and adopting a child, complete. PT is post operative weight loss surgery and looking for group therapy support. She reported struggling at night with snacking and eating, relating the feeling of being full with safety. Pt reported that she often lays in bed with her tablet and then will snack. We discussed the differences between actual hunger and emotional eating. Pt works out at night and may be in need of more protein as she identified being physically hungry after her workout. Presenting Concerns Referral Source provider Reason for referral post weight loss surgery seeking group therapy Precipitating Event weight loss surgery/emotional eating. Living Situation Current Living Situation Rent At risk of losing current housing? No Satisfied with current living situation? Yes Comments Pt lives with her brother who she raised from due to age difference. Pt also has a dog. Assessment & Plan Assessment & Plan (1) ADHD (attention deficit hyperactivity disorder), combined type: Code(s): F90.2 - Attention-deficit hyperactivity disorder, combined type (2) Status post sleeve gastrectomy: Code(s): Z90.3 - Acquired absence of stomach [part of] (3) Posttraumatic stress disorder: Code(s): F43.10 - Post-traumatic stress disorder, unspecified Plan Patient struggles due to past complex trauma from childhood hunger and poverty, attachment issues with her mother, seperated from her father, some addiction issues. She would benefit from ongoing EMDR as well as post operative therapy group to address rel. with food. Telehealth Telehealth Location of provider rendering services: other Location of patient: address on file Patient Identification confirmed using: Name, : Yes Telehealth method: video Patient verbally consented to treatment: Yes Patient verbally consented to billing insurance company: Yes Patient informed of any privacy concerns related to visit: Yes Minutes spent on Phone/Video with Pt.: 50 Coding Level of Care Code Tele Psytx 45 mins ([id number]) Diagnoses ADHD (attention deficit hyperactivity disorder), combined type F90.2 Status post sleeve gastrectomy Z90.3 Posttraumatic stress disorder F43.10 Time Spent (min) 50
== END 2023-08-04 10:59 | disposition home or self-care (01) ==
LOC: HO.HBST 10:34
PROVIDERS: PCP Internal Medicine; Visit Provider Counselor Mental Health
DX: F90.2 Attention-deficit hyperactivity disorder, combined type (principal); Z90.3 Acquired absence of stomach [part of]; F43.10 Post-traumatic stress disorder, unspecified
CPT/HCPCS: 90834

== ENCOUNTER → 2023-08-04 10:34 | Outpatient (BNVA) | payer OTHER, SELFPAY | PROVIDERS: PCP Internal Medicine; Visit Provider Counselor Mental Health ==

== ENCOUNTER 2023-08-11 11:15 | Outpatient (AMB) | payer OTHER, SELFPAY ==
--- NOTE | 2024-06-19 16:19 | A.OFFWM_ITS ---
Intake Intake Visit Reasons: VIDEO PO LSG 02/06/22 Allergies cat dander [CAT DANDER] Allergy (Mild, Verified 05/24/24 09:29) EYES- TEAR, ITCHY, face swells dog dander [DOG DANDER] Allergy (Mild, Verified 05/24/24 09:29) EYES- TEAR, ITCHY, hives duloxetine [From CYMBALTA] Adverse Reaction (Intermediate, Verified 05/24/24 09:29) VAGINAL BLEEDING PFSH Medical History (Updated 06/12/24 @ 16:11 by Jaz Bello) Bilateral knee pain Sacroiliac pain Positive DANIELE (antinuclear antibody) Refused influenza vaccine PTSD (post-traumatic stress disorder) Insomnia PONV (postoperative nausea and vomiting) Gastric ulcer Cholelithiasis Sacroiliitis Spondylosis of lumbar region without myelopathy or radiculopathy Scoliosis Goiter Restless leg syndrome ADHD (attention deficit hyperactivity disorder) Anxiety OCD (obsessive compulsive disorder) Hypertension GERD (gastroesophageal reflux disease) Vitamin D deficiency PCOS (polycystic ovarian syndrome) Body mass index [BMI]40.0-44.9, adult Irritable bowel syndrome with diarrhea Environmental and seasonal allergies Breast cancer screening by mammogram Dyslipidemia Gastritis Morbid obesity Hirsutism Telogen effluvium Heartburn Degenerative disc disease, lumbar Fibromyalgia Bipolar disorder Rosacea Acquired hypothyroidism Surgical History Hx of bariatric surgery Hx of shoulder surgery S/P laparoscopic sleeve gastrectomy Hx of cholecystectomy Hx of colonoscopy Miscarriage History of nasal surgery History of rotator cuff surgery Family History Father Diabetes mellitus Mother OCD (obsessive compulsive disorder) EITAN (generalized anxiety disorder) HTN (hypertension) Cancer Cervical cancer Family/Other FH: mental illness Maternal Grandmother EITAN (generalized anxiety disorder) Glaucoma Mental health disorder Maternal Grandfather Alzheimer disease Maternal Aunt Hypothyroidism Mental health disorder Paternal Grandmother Unknown family medical history Paternal Grandfather Unknown family medical history Sister Hypothyroidism Paternal Aunt Substance use disorder Maternal Uncle Substance use disorder Social History Household Members Other:: brother Housing: Apartment Are you a primary healthcare corporate account director to a significant other at home: No Do you presently have visiting nurse or other home services: No Alcohol intake: never Patient Tobacco Use Status: Former Tobacco user Tobacco use type: Cigarette Cigarettes Per Day: 20 Years Smoked: 3 e-Cigarette/Vaping Use: Never Used service: No Current occupational status: disabled Cognitive needs: No Hearing needs: No Vision needs: Yes Behavioral Health Assessment Weight Management Therapy Therapy Notes Details EMDR continued, complete session. no issues. continuing to navigate travel and being in a new relationship. Assessment & Plan Assessment & Plan (1) ADHD (attention deficit hyperactivity disorder), combined type: Code(s): F90.2 - Attention-deficit hyperactivity disorder, combined type (2) Status post sleeve gastrectomy: Code(s): Z90.3 - Acquired absence of stomach [part of] (3) Posttraumatic stress disorder: Code(s): F43.10 - Post-traumatic stress disorder, unspecified Plan Patient struggles due to past complex trauma from childhood hunger and poverty, attachment issues with her mother, seperated from her father, some addiction issues. She would benefit from ongoing EMDR as well as post operative therapy group to address rel. with food. Telehealth Telehealth Telehealth Platform: Telephone Location of provider rendering services: other Location of patient: address on file Patient Identification confirmed using: Name, : Yes Telehealth method: voice only Patient verbally consented to treatment: Yes Patient verbally consented to billing insurance company: Yes Patient informed of any privacy concerns related to visit: Yes Minutes spent on Phone/Video with Pt.: 45 Coding Level of Care Code Tele Psytx 45 mins ([id number]) Diagnoses ADHD (attention deficit hyperactivity disorder), combined type F90.2 Status post sleeve gastrectomy Z90.3 Posttraumatic stress disorder F43.10 Time Spent (min) 45
== END 2023-08-11 11:30 | disposition home or self-care (01) ==
PROVIDERS: PCP Internal Medicine; Visit Provider Counselor Mental Health
DX: F90.2 Attention-deficit hyperactivity disorder, combined type (principal); Z90.3 Acquired absence of stomach [part of]; F43.10 Post-traumatic stress disorder, unspecified
CPT/HCPCS: 99499

== ENCOUNTER → 2023-08-11 11:15 | Outpatient (BNVA) | payer OTHER, SELFPAY | PROVIDERS: PCP Internal Medicine; Visit Provider Counselor Mental Health ==

== ENCOUNTER → 2023-08-11 11:15 | Outpatient (BNVA) | payer OTHER, SELFPAY | PROVIDERS: PCP Internal Medicine; Visit Provider Counselor Mental Health ==

== ENCOUNTER 2023-08-16 19:16 | Outpatient (AMB) | payer OTHER, SELFPAY ==
--- NOTE | 2023-08-21 15:19 | MHC.WMTHER ---
Intake Intake Visit Reasons: Group Therapy Allergies cat dander [CAT DANDER] Allergy (Mild, Verified 08/17/23 14:26) EYES- TEAR, ITCHY, face swells dog dander [DOG DANDER] Allergy (Mild, Verified 08/17/23 14:26) EYES- TEAR, ITCHY, hives duloxetine [From CYMBALTA] Adverse Reaction (Intermediate, Verified 08/17/23 14:26) VAGINAL BLEEDING PFSH Medical History Acquired hypothyroidism ADHD (attention deficit hyperactivity disorder) Androgenetic alopecia Annual visit for general adult medical examination with abnormal findings Anxiety Bipolar disorder Body mass index [BMI]40.0-44.9, adult Breast cancer screening by mammogram Cholelithiasis Degenerative disc disease, lumbar Dyslipidemia Environmental and seasonal allergies Fibromyalgia Gastric ulcer Gastritis GERD (gastroesophageal reflux disease) Goiter Heartburn Hirsutism Hypertension Insomnia Irritable bowel syndrome with diarrhea Morbid obesity OCD (obsessive compulsive disorder) Oral abscess PCOS (polycystic ovarian syndrome) PONV (postoperative nausea and vomiting) PTSD (post-traumatic stress disorder) Refused influenza vaccine Restless leg syndrome Rosacea Sacroiliitis Scoliosis 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 Vitamin D deficiency Surgical History History of nasal surgery History of rotator cuff surgery Hx of bariatric surgery Hx of cholecystectomy Hx of colonoscopy Hx of shoulder surgery Miscarriage S/P laparoscopic sleeve gastrectomy Family History Father Diabetes mellitus Mother OCD (obsessive compulsive disorder) EITAN (generalized anxiety disorder) HTN (hypertension) Cancer Cervical cancer Family/Other FH: mental illness Maternal Grandmother EITAN (generalized anxiety disorder) Glaucoma Mental health disorder Maternal Grandfather Alzheimer disease Maternal Aunt Hypothyroidism Mental health disorder Paternal Grandmother Unknown family medical history Paternal Grandfather Unknown family medical history Sister Hypothyroidism Paternal Aunt Substance use disorder Maternal Uncle Substance use disorder Social History Household Members Other:: brother Housing: Apartment Are you a primary patient care assistant to a significant other at home: No Do you presently have visiting nurse or other home services: No Alcohol intake: never Patient Tobacco Use Status: Former Tobacco user Quit Date: 2011 Tobacco use type: Cigarette Cigarettes Per Day: 20 Years Smoked: 3 e-Cigarette/Vaping Use: Never Used service: No Current occupational status: disabled Cognitive needs: No Hearing needs: No Vision needs: No Behavioral Health Assessment Weight Management Therapy Therapy Notes Details Group therapy session on overeating, emotional eating, binge eating. Listened to audio and discussed different hoffmann points. Pt shared that she has been binge eating at night. PT is post operative weight loss surgery and looking for group therapy support. She reported struggling at night with snacking and eating, relating the feeling of being full with safety. Pt reported that she often lays in bed with her tablet and then will snack. We discussed the differences between actual hunger and emotional eating. Pt works out at night and may be in need of more protein as she identified being physically hungry after her workout. Presenting Concerns Referral Source provider Reason for referral post weight loss surgery seeking group therapy Precipitating Event weight loss surgery/emotional eating. Living Situation Current Living Situation Rent At risk of losing current housing? No Satisfied with current living situation? Yes Comments Pt lives with her brother who she raised from due to age difference. Pt also has a dog. Assessment & Plan Assessment & Plan (1) ADHD (attention deficit hyperactivity disorder), combined type: Code(s): F90.2 - Attention-deficit hyperactivity disorder, combined type (2) Status post sleeve gastrectomy: Code(s): Z90.3 - Acquired absence of stomach [part of] (3) Posttraumatic stress disorder: Code(s): F43.10 - Post-traumatic stress disorder, unspecified Plan Patient struggles due to past complex trauma from childhood hunger and poverty, attachment issues with her mother, seperated from her father, some addiction issues. She would benefit from ongoing EMDR as well as post operative therapy group to address rel. with food. Coding Level of Care Code Grp Psych (33849) Diagnoses ADHD (attention deficit hyperactivity disorder), combined type F90.2 Status post sleeve gastrectomy Z90.3 Posttraumatic stress disorder F43.10 Time Spent (min) 60
== END 2023-08-21 15:19 | disposition home or self-care (01) ==
PROVIDERS: PCP Internal Medicine; Visit Provider Counselor Mental Health
DX: F90.2 Attention-deficit hyperactivity disorder, combined type (principal); Z90.3 Acquired absence of stomach [part of]; F43.10 Post-traumatic stress disorder, unspecified

== ENCOUNTER → 2023-08-16 19:16 | Outpatient (BNVA) | payer OTHER, SELFPAY | PROVIDERS: PCP Internal Medicine; Visit Provider Counselor Mental Health | DX: F90.2 Attention-deficit hyperactivity disorder, combined type (principal); F43.10 Post-traumatic stress disorder, unspecified; Z90.3 Acquired absence of stomach [part of] | CPT/HCPCS: 90853 ==

== ENCOUNTER 2023-08-17 13:51 | Outpatient (AMB) | payer OTHER, SELFPAY ==
--- NOTE | 2023-08-17 14:13 | MHC.PC.OV ---
Vital Signs 08/17/23 14:14 Height 5 ft 3 in Weight 196 lb BMI 34.7 BP 96/70 Pulse 88 Pulse Source Pulse Oximeter Pulse Oximetry (%) 96 Oxygen Delivery Method Room Air Intake Visit Reasons: Physical exam Intake Note: patient is here today for her PE Allergies cat dander [CAT DANDER] Allergy (Mild, Verified 08/17/23 14:26) EYES- TEAR, ITCHY, face swells dog dander [DOG DANDER] Allergy (Mild, Verified 08/17/23 14:26) EYES- TEAR, ITCHY, hives duloxetine [From CYMBALTA] Adverse Reaction (Intermediate, Verified 08/17/23 14:26) VAGINAL BLEEDING Medication List - Last Reconciled 08/17/23 by Elke Cross MD acetaminophen ER (Tylenol 8 Hour) 650 mg PO Q12H albuterol sulfate 90 mcg/actuation (Ventolin HFA) 1 - 2 puffs inhalation Q4H PRN alclometasone 0.05% appl topical BID PRN aripiprazole 2 mg PO DAILY calcium carbonate-vitamin D3 250 mg-3.125 mcg (125 unit) 1 tab PO BID cetirizine 10 mg PO DAILY PRN chlorhexidine gluconate 0.12% mL PO TID-QID clindamycin phosphate 1% topical BID clonazepam mg PO dextroamphetamine-amphetamine 20 mg ER 1 cap PO BID diclofenac sodium 1% (Voltaren Arthritis Pain) 2 grams topical BID fluticasone propionate 50 mcg/actuation 2 sprays intranasal DAILY glycopyrrolate 1 mg PO BID ivermectin 1% (Soolantra) 1 appl topical DAILY levothyroxine 50 mcg PO DAILY 30 days metformin 500 mg PO BID 30 days multivitamin 1 tab PO DAILY pregabalin 75 mg PO BID spironolactone 25 mg PO DAILY vilazodone 40 mg PO DAILY Tobacco use date assessed: 08/17/23 Dental Screening Dental Screen Date: 08/17/23 Did you have a dental visit in the last 12 months?: Yes Did you have a dental problem in the last 6 months where you did not have access to dental care?: Yes Was dental information given to patient?: Patient has dentist HPI HPI Comments History of Present Illness Details 43 Year old lady with bipolar disorder, ADHD, followed by Hunter Dixon, has hypothyroidism, hypertension, PCOS, fibromyalgia, dyslipidemia, GERD, history of obesity status post laparoscopic sleeve gastrectomy, here today for her physical exam. She is up-to-date with her cervical cancer screening, last done at [facility] a year ago with normal findings. She is due again for her screening mammogram later this month. She had recent fasting labs done which showed normal electrolytes, fasting glucose, normal vitamin-D, normal TSH, CBC, with the slightly elevated LDL cholesterol. [facility] Medical History Acquired hypothyroidism ADHD (attention deficit hyperactivity disorder) Androgenetic alopecia Annual visit for general adult medical examination with abnormal findings Anxiety Bipolar disorder Body mass index [BMI]40.0-44.9, adult Breast cancer screening by mammogram Cholelithiasis Degenerative disc disease, lumbar Dyslipidemia Environmental and seasonal allergies Fibromyalgia Gastric ulcer Gastritis GERD (gastroesophageal reflux disease) Goiter Heartburn Hirsutism Hypertension Insomnia Irritable bowel syndrome with diarrhea Morbid obesity OCD (obsessive compulsive disorder) Oral abscess PCOS (polycystic ovarian syndrome) PONV (postoperative nausea and vomiting) PTSD (post-traumatic stress disorder) Refused influenza vaccine Restless leg syndrome Rosacea Sacroiliitis Scoliosis 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 Vitamin D deficiency Surgical History History of nasal surgery History of rotator cuff surgery Hx of bariatric surgery Hx of cholecystectomy Hx of colonoscopy Hx of shoulder surgery Miscarriage S/P laparoscopic sleeve gastrectomy Family History Father Diabetes mellitus Mother OCD (obsessive compulsive disorder) EITAN (generalized anxiety disorder) HTN (hypertension) Cancer Cervical cancer Family/Other FH: mental illness Maternal Grandmother EITAN (generalized anxiety disorder) Glaucoma Mental health disorder Maternal Grandfather Alzheimer disease Maternal Aunt Hypothyroidism Mental health disorder Paternal Grandmother Unknown family medical history Paternal Grandfather Unknown family medical history Sister Hypothyroidism Paternal Aunt Substance use disorder Maternal Uncle Substance use disorder Social History Household Members Other:: brother Housing: Apartment Are you a primary field care coordinator to a significant other at home: No Do you presently have visiting nurse or other home services: No Alcohol intake: never Patient Tobacco Use Status: Former Tobacco user Quit Date: 2011 Tobacco use type: Cigarette Cigarettes Per Day: 20 Years Smoked: 3 e-Cigarette/Vaping Use: Never Used service: No Current occupational status: disabled Cognitive needs: No Hearing needs: No Vision needs: No Female Reproductive History Menstrual Duration of menses: 3-5 days Date of last menstrual period: 07/04/23 control method: none Questionnaire PHQ-9 Over the last 2 weeks, how often have you been bothered by any of the following problems? 1. Little interest or pleasure in doing things: not at all 2. Feeling down, depressed, or hopeless: not at all 3. Trouble falling or staying asleep, or sleeping too much: not at all 4. Feeling tired or having little energy: nearly every day 5. Poor appetite or overeating: nearly every day 6. Feeling bad about yourself - or that you are a failure or have let yourself or your family down: several days 7. Trouble concentrating on things, such as reading the newspaper or watching television: several days 8. Moving or speaking so slowly that other people could have noticed. Or the opposite - being so fidgety or restless that you have been moving around a lot more than usual: not at all 9. Thoughts that you would be better off or of hurting yourself in some way: not at all Total score: 8 Depression Screening Interpretation: Positive (Followed by psychiatry, Dr. Hunter Dixon and sees a therapist every Monday) Depression Screening Follow-up: Existing condition and In treatment 13848 - PHQ-9 Billing: Yes Source: Developed by Drs. Parviz Lora, Ghazala Chang, Ryan Holland and colleagues, with an educational bryan from [employer]. Thrive Questionnaire Date Thrive assessed: 04/28/22 I am a: Patient What is your living situation today?: I have a place to live, but I am worried about losing it in the future Within the past 12 months, did the food you bought not last and you didn't have the money to get more?: Often true Within the past 12 months, did you worry whether your food would run out before you got money to buy more?: Often true Do you have trouble paying for medicines?: Yes Do you have trouble getting transportation to medical appointments?: No Do you have trouble paying your heating and electricity bill?: Yes Do you have trouble taking care of your child, family member or friend?: No Do you have trouble with day-to-day activities such as bathing, preparing meals, shopping, managing finances, etc.?: Yes Are you currently unemployed and looking for a job?: No Are you interested in more education?: No AUDIT C Alcohol Use Questionnaire (AUDIT-C) 1. How often do you have a drink containing alcohol?: Never Total Score: 0 EITAN-7 AMB Questionnaire EITAN-7 Date EITAN - 7 assessed: 08/17/23 Feeling nervous, anxious, or on edge: 2 = More than half the days Not being able to stop or control worryin = More than half the days Worrying too much about different things: 2 = More than half the days Trouble relaxin = More than half the days Being so restless that it is hard to sit still: 2 = More than half the days Becoming easily annoyed or irritable: 2 = More than half the days Feeling afraid as if something awful might happen: 1 = Several days Total EITAN-7 score (0-4 normal; 5-9 mild; 10-14 moderate; 15-21 severe): 13 Source: Developed by Drs. Parviz Lora, Ghazala Chang, Ryan Holland and colleagues, with an educational bryan from [employer]. EITAN-7 Assessment Billing EITAN-7 Assessment Tool: EITAN-7 Assessment 97163 Review of Systems Const Denies fatigue, Denies headache(s), Denies weakness, Denies weight gain and Reports weight loss Eyes Denies change in vision ENT Reports no additional complaints, Denies dizziness and Denies headache(s) Card Denies chest pain, Denies irregular heart rhythm and Denies dyspnea Resp Denies cough and Denies dyspnea GI Denies abdominal pain, Denies change in bowel habits, Denies diarrhea and Denies nausea Reports no additional complaints Musc Denies myalgias, Denies muscle cramps, Denies numbness and Denies tingling Skin/Breast Denies breast pain, Denies breast mass and Denies rash Neuro Denies dizziness, Denies headache(s), Denies numbness, Denies tingling and Denies weakness Psych Reports as per HPI Endo Denies cold intolerance, Denies fatigue and Denies heat intolerance Daniel/Lymph Denies easy bruising Aller/Immun Reports no additional complaints Physical exam (Primary Care) Vital Signs: Last Vital Signs Pulse 88 08/17/23 14:14 BP 96/70 08/17/23 14:14 Pulse Ox 96 08/17/23 14:14 Oxygen Delivery Method Room Air 08/17/23 14:14 BMI result Body Mass Index 34.7 BMI Assessment/Plan discussion: High BMI High, discussed plan: weight reduction, dietary and physical activity Tobacco/Smoking Status: Tobacco use Status Tobacco use date assessed 08/17/23 08/17/23 14:26 Patient Tobacco Use Status Former Tobacco user 08/17/23 14:14 Tobacco use type Cigarette 08/17/23 14:14 e-Cigarette/Vaping Use Never Used 08/17/23 14:14 PHQ-9: PHQ-9 Score PHQ-9: Total score 8 08/17/23 15:22 Depression Screening Interpretation: Positive (Followed by psychiatry, Dr. Hunter Dixon and sees a therapist every Monday) Depression Screening Follow-up: Existing condition and In treatment Thrive Assessment: Date of Thrive Assessment Date Thrive assessed 04/28/22 08/17/23 14:14 Const General: comfortable and no acute distress Nutritional Appearance: obese Orientation/consciousness: patient oriented x3 HENMT Head: Yes normocephalic and Yes atraumatic Ears: hearing grossly normal bilaterally, external ears normal, TM's normal bilaterally and EAC's normal Eyes General: appearance normal, both eyes and all related structures Neck Neck: Yes full ROM, Yes no lymphadenopathy and Yes supple Chest Breast/axilla palpation: normal palpation of the breasts Resp Effort & Inspection: normal respiratory effort and able to speak in complete sentences Auscultation: clear to auscultation bilaterally Cardio Rate: regular rate Rhythm: regular rhythm Heart sounds: S1 normal heart sound present and S2 normal heart sound present GI Inspection: Yes normal to inspection Palpation (GI): Soft to palpation, nontender and no masses Auscultation: normal bowel sounds General: Yes no CVA tenderness and Yes deferred (sees [facility]) Back/Spine/Pelvis Back: no CVA tenderness and back tenderness Skin Other: Well-healed surgical scar on abdomen, nontender to palpation General skin exam: no rashes or lesions noted Neuro General: patient oriented x3, tone normal, moves all extremities, Normal light touch and pain sensation and no focal motor deficits Cognition (Neuro): normal cognition Motor exam (neuro): 5/5 motor strength present throughout Extrem General: Yes full ROM, Yes no joint enlargement, Yes no pedal edema and Yes no calf tenderness Psych Appearance: grossly normal and well kempt Mental Status: mental status grossly normal Speech and movement: Normal speech and movement present Affect: normal affect Attitude: cooperative Thought process: Normal thought process present Results AMB Test Urine AMB Test Urine Negative Last Edit by TONY Dawson on 08/17/23 15:24 Results Reviewed Results Reviewed: Laboratory Last Values [facility]st Clinic Negative 08/17/23 15:22 ENTERED: 07/12/23-4 [facility] [address]: Elke Cross MD ORDERED: CBC Auto Diff Test Result Flag Reference Site WBC 7.0 4.8-10.8 X10*3/uL RBC 4.33 4.20-5.50 X10*6/uL HGB 13.6 12.0-16.0 g/dl HCT 41.4 37.0-47.0 % MCV 95.6 80.0-98.0 fL MCH 31.4 27.0-33.0 pg MCHC 32.9 31.0-35.0 g/dl RDW 12.3 11.0-16.0 % PLT 264 160-400 X10*3/uL ENTERED: 08/03/23 [facility] DR: Guy Machado Annabel C MD ORDERED: CMP, Free T4, TSH Test Result Flag Reference Site Sodium 140 135-145 mmol/L Potassium 4.2 3.3-5.1 mmol/L CL 105 96-108 mmol/L CO2 29 22-29 mmol/L Gap 10 L 12-20 BUN 24 H 9-16 mg/dL Creat 0.95 0.5-1.4 mg/dL EGFR > 60 NOTE: For -[place] individuals, multiply the result by 1.210. Chronic Kidney Disease: Estimated GFR < 60 mL/min/1.73m2 Severe Kidney Disease: Estimated GFR < 15 mL/min/1.73m2 Glucose, Random 85 60-115 mg/dL CA 9.6 8.4-10.2 mg/dL Total Bili 0.4 0.0-1.0 mg/dL AST (GOT) 18 5-31 U/L ALT (GPT) 16 0-31 U/L Protein, Total 6.9 6.5-8.0 g/dL Alb 4.2 3.5-5.0 g/dL Alk Phos 52 39-117 U/L Free T4 1.03 0.71-1.85 ng/dL TSH 3rd Gen. 1.49 0.32-4.0 uIU/mL TSH 3rd Generation ([facility]) ENTERED: 07/12/23-[address]: Ameriac,Elke Lei MD ORDERED: BMP, IRON PROF, Ferritin, C Reactive Prot, Lipid Panel, Vitamin D 25-OH, Insulin Test Result Flag Reference Site Sodium 138 135-145 mmol/L Potassium 4.6 3.3-5.1 mmol/L CL 104 96-108 mmol/L CO2 29 22-29 mmol/L Gap 10 L 12-20 BUN 18 H 9-16 mg/dL Creat 0.90 0.5-1.4 mg/dL EGFR > 60 NOTE: For -[place] individuals, multiply the result by 1.210. Chronic Kidney Disease: Estimated GFR < 60 mL/min/1.73m2 Severe Kidney Disease: Estimated GFR < 15 mL/min/1.73m2 Glucose, Random 84 60-115 mg/dL CA 9.7 8.4-10.2 mg/dL Iron 158 30-160 mcg/dL TIBC 287 228-428 mcg/dL Saturation 55 H 15-50 % UIBC 129 ug/dL Ferritin 88 10-250 ng/mL CRP 0.16 < or = 0.50 mg/dL Triglyceride 85 <150 mg/dL Desirable Triglyceride: less than 150 mg/dL Borderline High Triglyceride 150-199 mg/dL High Triglyceride: 200-499 mg/dL Very High Triglyceride: greater than or equal to 5OO mg/dL Cholesterol 210 H <200 mg/dL Desirable Cholesterol: less than 200 mg/dL Borderline High Cholesterol: 200-239 mg/dL High Cholesterol: greater than 239 mg/dL LDL Calculated 137 H <100 mg/dL Desirable LDL: less than 100 mg/dL Near Optimal/Above Optimal LDL: 110-129 mg/dL Borderline High LDL: 130-159 mg/dL High LDL: 160-189 mg/dL Very High LDL: greater than or equal to 190 mg/dL HDL 56 >40 mg/dL Desirable HDL: greater than 40 mg/dL Note: This HDL assay may give artificially low results in patients with liver disease. Vit D 25-OH Tot 56.3 >30 ng/mL Health Based Reference Values* < 20 ng/mL Deficient 20-30 ng/mL Insufficient > 30 ng/mL Sufficient *Jacob GARRISON. N Engl J Med. 2007;357:266-280 Care must be taken in interpreting Vitamin D results from different laboratories and methodologies. Published data demonstrated that results from patients undergoing hemodialysis may show a negative bias when tested with various automated 25-OH vitamin D assays when compared to LC-MS/MS. When testing samples from patients whose predominant form of Vitamin D is Vitamin D2, such as patients receiving Vitamin D2 supplementation, results that are subtherapeutic should be confirmed with another method such as LC-MS/MS. TSH 1.49 0.32-4.0 uIU/mL Insulin, total 4 2-29 uU/mL This test was performed using the [employer] chemiluminescent method. Values obtained from different assay methods cannot be used interchangeably. This insulin assay shows a possible cross-reactivity with antibodies generated against insulin (immunoreactive insulin and some patients treated with bovine or porcine insulin). Insulin levels may be measured lower in patients with insulin autoimmune syndrome or familial high pro-insulinemia. Assessment and Plan Assessment & Plan (1) Annual visit for general adult medical examination with abnormal findings: Code(s): Z00.01 - Encounter for general adult medical examination with abnormal findings Plan: Reviewed recent fasting lab results with patient. Recommended dental visit every 6 months and regular eye exams, at least every 2 years. Take adequate calcium in diet and vitamin-D 3 at 2000 IU per cap once a day, in addition to weight-bearing exercises to help maintain good muscle tone and weight control. Instructed to do self-breast exam, and continue to get yearly mammogram patient declines flu vaccine, reminded to get her COVID booster (2) Missed period: Code(s): N92.6 - Irregular menstruation, unspecified Plan: Urine test done came back negative (3) PCOS (polycystic ovarian syndrome): Code(s): E28.2 - Polycystic ovarian syndrome Plan: Followed by OBGYN, currently on metformin and spironolactone (4) Dyslipidemia: Code(s): E78.5 - Hyperlipidemia, unspecified Plan: Reviewed recent fasting lipid profile with patient with mild elevation of LDL cholesterol . Continue with following a low-cholesterol diet and regular exercise, at least 30 minutes 3 to 4 times a week. Advised patient to make healthy food choices, eat more fruits, vegetables, whole grains, wild caught fish and low-fat dairy. Limit amount of meat and fried or fatty food products, as well as processed foods and fast foods. (5) Bipolar disorder: Code(s): F31.9 - Bipolar disorder, unspecified Plan: Stable controlled on present treatment, followed by Ana Cristina Dixon (6) Acquired hypothyroidism: Code(s): E03.9 - Hypothyroidism, unspecified Plan: TSH recently checked was within normal limits, continued on levothyroxine 50 mcg daily (7) ADHD (attention deficit hyperactivity disorder): Code(s): F90.9 - Attention-deficit hyperactivity disorder, unspecified type Plan: Followed by Hunter Dixon (8) Refused influenza vaccine: Code(s): Z28.21 - Immunization not carried out because of patient refusal (9) Encounter for physical examination: Code(s): Z00.00 - Encounter for general adult medical examination without abnormal findings Orders: Orders AMB HCG Urine Test 08/17/23 N92.6 - Irregular menstruation, unspecified Aspartate Amino Transferase 6 Months E28.2 - Polycystic ovarian syndrome, E78.5 - Hyperlipidemia, unspecified, L68.0 - Hirsutism, F31.9 - Bipolar disorder, unspecified, E03.9 - Hypothyroidism, unspecified, F90.9 - Attention-deficit hyperactivity disorder, unspecified type, Z00.01 - Encounter for general adult medical examination with abnormal findings, Z28.21 - Immunization not carried out because of patient refusal Alanine Aminotransferase 6 Months E28.2 - Polycystic ovarian syndrome, E78.5 - Hyperlipidemia, unspecified, L68.0 - Hirsutism, F31.9 - Bipolar disorder, unspecified, E03.9 - Hypothyroidism, unspecified, F90.9 - Attention-deficit hyperactivity disorder, unspecified type, Z00.01 - Encounter for general adult medical examination with abnormal findings, Z28.21 - Immunization not carried out because of patient refusal Free T4 (Free Thyroxine) 6 Months E03.9 - Hypothyroidism, unspecified, E28.2 - Polycystic ovarian syndrome, E78.5 - Hyperlipidemia, unspecified, L68.0 - Hirsutism, F31.9 - Bipolar disorder, unspecified, F90.9 - Attention-deficit hyperactivity disorder, unspecified type, Z00.01 - Encounter for general adult medical examination with abnormal findings, Z28.21 - Immunization not carried out because of patient refusal Basic Metabolic Panel Fasting 6 Months E28.2 - Polycystic ovarian syndrome, E78.5 - Hyperlipidemia, unspecified, L68.0 - Hirsutism, F31.9 - Bipolar disorder, unspecified, E03.9 - Hypothyroidism, unspecified, F90.9 - Attention-deficit hyperactivity disorder, unspecified type, Z00.01 - Encounter for general adult medical examination with abnormal findings, Z28.21 - Immunization not carried out because of patient refusal Hemoglobin A1c 6 Months E28.2 - Polycystic ovarian syndrome, E78.5 - Hyperlipidemia, unspecified, L68.0 - Hirsutism, F31.9 - Bipolar disorder, unspecified, E03.9 - Hypothyroidism, unspecified, F90.9 - Attention-deficit hyperactivity disorder, unspecified type, Z00.01 - Encounter for general adult medical examination with abnormal findings, Z28.21 - Immunization not carried out because of patient refusal Thyroid Stimulating Hormone 6 Months E28.2 - Polycystic ovarian syndrome, E78.5 - Hyperlipidemia, unspecified, L68.0 - Hirsutism, F31.9 - Bipolar disorder, unspecified, E03.9 - Hypothyroidism, unspecified, F90.9 - Attention-deficit hyperactivity disorder, unspecified type, Z00.01 - Encounter for general adult medical examination with abnormal findings, Z28.21 - Immunization not carried out because of patient refusal Lipid Panel 6 Months E28.2 - Polycystic ovarian syndrome, E78.5 - Hyperlipidemia, unspecified, L68.0 - Hirsutism, F31.9 - Bipolar disorder, unspecified, E03.9 - Hypothyroidism, unspecified, F90.9 - Attention-deficit hyperactivity disorder, unspecified type, Z00.01 - Encounter for general adult medical examination with abnormal findings, Z28.21 - Immunization not carried out because of patient refusal Thyroid Stimulating Hormone 01/16/23 E03.9 - Hypothyroidism, unspecified Medications: Refilled metformin 500 mg PO BID 60 tabs 5RF 30 days levothyroxine 50 mcg PO DAILY 30 tabs 5RF 30 days Coding Level of Care Code Est Pt Prev Care 40-64y(72766) Diagnoses Annual visit for general adult medical examination with abnormal findings Z00.01 Missed period N92.6 PCOS (polycystic ovarian syndrome) E28.2 Dyslipidemia E78.5 Bipolar disorder F31.9 Acquired hypothyroidism E03.9 ADHD (attention deficit hyperactivity disorder) F90.9 Refused influenza vaccine Z28.21 Encounter for physical examination Z00.00 Additional Codes EITAN-7 Assessment Billing - EITAN-7 Assessment Tool: EITAN-7 Assessment 53914 ([id number])
[2023-08-17 14:14] VITALS: BP 96/70; PULSE 88; O2SAT 96; BMI 34.7
== END 2023-08-17 15:14 | disposition home or self-care (01) ==
PROVIDERS: PCP Internal Medicine; Visit Provider Internal Medicine
DX: N92.6 Irregular menstruation, unspecified (principal)
CPT/HCPCS: 81025; 99396

== ENCOUNTER 2023-09-07 10:22 | Outpatient (AMB) | payer OTHER, SELFPAY ==
[2023-09-07 10:29] VITALS: BP 122/80; PULSE 85; O2SAT 99; BMI 34.6
--- NOTE | 2023-09-07 10:29 | MHC.PC.OV ---
Vital Signs 09/07/23 10:29 Height 5 ft 3 in Weight 195 lb 4 oz BMI 34.6 BP 122/80 Blood Pressure Location Rt brachial Position Sitting Pulse 85 Pulse Source Pulse Oximeter Pulse Oximetry (%) 99 Oxygen Delivery Method Room Air Intake Visit Reasons: Left sided sciatica pain Intake Note: pt is here for left sided sciatica pain that started about 1 week ago pt says it goes from her back down her leg Allergies cat dander [CAT DANDER] Allergy (Mild, Verified 09/07/23 10:32) EYES- TEAR, ITCHY, face swells dog dander [DOG DANDER] Allergy (Mild, Verified 09/07/23 10:32) EYES- TEAR, ITCHY, hives duloxetine [From CYMBALTA] Adverse Reaction (Intermediate, Verified 09/07/23 10:32) VAGINAL BLEEDING Medication List - Last Reconciled 09/07/23 by Elke Cross MD acetaminophen ER (Tylenol 8 Hour) 650 mg PO Q12H albuterol sulfate 90 mcg/actuation (Ventolin HFA) 1 - 2 puffs inhalation Q4H PRN alclometasone 0.05% appl topical BID PRN aripiprazole 2 mg PO DAILY calcium carbonate-vitamin D3 250 mg-3.125 mcg (125 unit) 1 tab PO BID cetirizine 10 mg PO DAILY PRN chlorhexidine gluconate 0.12% mL PO TID-QID clindamycin phosphate 1% topical BID clonazepam mg PO cyclobenzaprine 10 mg PO BEDTIME PRN dextroamphetamine-amphetamine 20 mg ER 1 cap PO BID diclofenac sodium 1% (Voltaren Arthritis Pain) 2 grams topical BID fluticasone propionate 50 mcg/actuation 2 sprays intranasal DAILY ivermectin 1% (Soolantra) 1 appl topical DAILY levothyroxine 50 mcg PO DAILY 30 days metformin 500 mg PO BID 30 days multivitamin 1 tab PO DAILY nabumetone 500 mg PO BID PRN pregabalin 75 mg PO BID spironolactone 25 mg PO DAILY vilazodone 40 mg PO DAILY Tobacco use date assessed: 09/07/23 Dental Screening Dental Screen Date: 09/07/23 Did you have a dental visit in the last 12 months?: Yes Did you have a dental problem in the last 6 months where you did not have access to dental care?: No Was dental information given to patient?: Patient has dentist HPI Left sided sciatica pain HPI Details 43-year-old lady here today complaining of recurrent aching pain in her left lower back radiating to buttock, comes and goes present now for the last week. Denies any trauma, no strenuous exertion. Has been applying moist heat to affected area which affords only temporary relief and takes Tylenol which does not help denies any accompanying urinary incontinence, no change in bowel habits, no weakness in extremities reported. [facility] Medical History Refused influenza vaccine Annual visit for general adult medical examination with abnormal findings PTSD (post-traumatic stress disorder) Insomnia PONV (postoperative nausea and vomiting) Gastric ulcer Cholelithiasis Sacroiliitis Spondylosis of lumbar region without myelopathy or radiculopathy Scoliosis Goiter Restless leg syndrome ADHD (attention deficit hyperactivity disorder) Anxiety OCD (obsessive compulsive disorder) Hypertension GERD (gastroesophageal reflux disease) Vitamin D deficiency PCOS (polycystic ovarian syndrome) Body mass index [BMI]40.0-44.9, adult Irritable bowel syndrome with diarrhea Environmental and seasonal allergies Breast cancer screening by mammogram Dyslipidemia Gastritis Oral abscess Morbid obesity Hirsutism Androgenetic alopecia Telogen effluvium Heartburn Degenerative disc disease, lumbar Fibromyalgia Bipolar disorder Rosacea Acquired hypothyroidism Surgical History Hx of bariatric surgery Hx of shoulder surgery S/P laparoscopic sleeve gastrectomy Hx of cholecystectomy Hx of colonoscopy Miscarriage History of nasal surgery History of rotator cuff surgery Family History Father Diabetes mellitus Mother OCD (obsessive compulsive disorder) EITAN (generalized anxiety disorder) HTN (hypertension) Cancer Cervical cancer Family/Other FH: mental illness Maternal Grandmother EITAN (generalized anxiety disorder) Glaucoma Mental health disorder Maternal Grandfather Alzheimer disease Maternal Aunt Hypothyroidism Mental health disorder Paternal Grandmother Unknown family medical history Paternal Grandfather Unknown family medical history Sister Hypothyroidism Paternal Aunt Substance use disorder Maternal Uncle Substance use disorder Social History Household Members Other:: brother Housing: Apartment Are you a primary animal care specialist to a significant other at home: No Do you presently have visiting nurse or other home services: No Alcohol intake: never Patient Tobacco Use Status: Former Tobacco user Quit Date: 2011 Tobacco use type: Cigarette Cigarettes Per Day: 20 Years Smoked: 3 e-Cigarette/Vaping Use: Never Used service: No Current occupational status: disabled Cognitive needs: No Hearing needs: No Vision needs: No Questionnaire Thrive Questionnaire Date Thrive assessed: 04/28/22 EITAN-7 AMB Questionnaire EITAN-7 Date EITAN - 7 assessed: 08/17/23 Source: Developed by Drs. Parviz Lora, Ghazala Chang, Ryan Holland and colleagues, with an educational bryan from [employer]. Review of Systems Const All systems reviewed & are unremarkable except as noted in HPI and below Physical exam (Primary Care) Vital Signs: Last Vital Signs Pulse 85 09/07/23 10:29 BP 122/80 09/07/23 10:29 Pulse Ox 99 09/07/23 10:29 Oxygen Delivery Method Room Air 09/07/23 10:29 BMI result Body Mass Index 34.6 Tobacco/Smoking Status: Tobacco use Status Tobacco use date assessed 09/07/23 09/07/23 10:35 Patient Tobacco Use Status Former Tobacco user 09/07/23 10:35 Tobacco use type Cigarette 09/07/23 10:35 e-Cigarette/Vaping Use Never Used 09/07/23 10:35 Thrive Assessment: Date of Thrive Assessment Date Thrive assessed 04/28/22 09/07/23 10:35 Const Other: Alert oriented x3, no acute distress noted, ambulatory with normal gait Orientation/consciousness: patient oriented x3 Back/Spine/Pelvis Other: Nontender to palpation over spine, slight tenderness on palpation over left sacroiliac area, negative straight straight leg raise sign bilaterally Skin General skin exam: no rashes or lesions noted Neuro General: patient oriented x3, gait normal, tone normal, moves all extremities, Normal light touch and pain sensation and no focal motor deficits Extrem General: Yes full ROM, Yes no joint enlargement, Yes no clubbing, cyanosis or edema, Yes no pedal edema, Yes no calf tenderness and Yes normal gait Assessment and Plan Assessment & Plan (1) Pain of left sacroiliac joint: Code(s): M53.3 - Sacrococcygeal disorders, not elsewhere classified Plan: Prescribe nabumetone 500 mg per tablet to take 1 tablet twice a day always with a meal, as needed for pain prescription also sent for cyclobenzaprine 10 mg per tablet to take half a tablet initially once a day as needed for painful muscle spasm. Return to the clinic if after a week no improvement of symptoms noted. Medications: New nabumetone 500 mg PO BID PRN 30 tabs 0RF back pain cyclobenzaprine 10 mg PO BEDTIME PRN 30 tabs 0RF muscle spasm Coding Level of Care Code Est Pt Level 3 (96222) Diagnoses Pain of left sacroiliac joint M53.3
== END 2023-09-07 11:24 | disposition home or self-care (01) ==
PROVIDERS: PCP Internal Medicine; Visit Provider Internal Medicine
DX: M53.3 Sacrococcygeal disorders, not elsewhere classified (principal)
CPT/HCPCS: 99213

== ENCOUNTER → 2023-09-07 13:14 | Outpatient (BNVA) | payer OTHER, SELFPAY | PROVIDERS: PCP Internal Medicine; Visit Provider Dietitian, Registered | DX: E66.9 Obesity, unspecified (principal) | CPT/HCPCS: 97803 ==

== ENCOUNTER → 2023-09-08 11:00 | Outpatient (BNVA) | payer OTHER, SELFPAY | PROVIDERS: PCP Internal Medicine; Visit Provider Counselor Mental Health ==

== ENCOUNTER 2023-09-14 13:16 | Outpatient (AMB) | payer OTHER, SELFPAY ==
--- NOTE | 2023-09-14 13:23 | A.OFFVIS_ITS ---
Intake VS Expanded 09/14/23 13:36 BP 109/67 Blood Pressure Location Rt brachial Blood Pressure Position Sitting Pulse 82 Pulse Source Pulse Oximeter Temp 97.0 F Temperature Source Temporal Artery Scan Pulse Oximetry 100 Oxygen Delivery Method Room Air Height 5 ft 3 in Weight 193 lb 12.8 oz BMI 34.3 Body Fat % 38.3 Body Fat Mass 74.2 Fat Free Mass 119.4 Visceral Fat Rating 9.0 Body Water % 44.0 Body Water Mass 85.4 Muscle Mass/Score 113.6 Basal Metabolic Rate/Score 1,645 Intake Visit Reasons: (OV) PO LSG 02/06/22 Allergies cat dander [CAT DANDER] Allergy (Mild, Verified 09/07/23 10:32) EYES- TEAR, ITCHY, face swells dog dander [DOG DANDER] Allergy (Mild, Verified 09/07/23 10:32) EYES- TEAR, ITCHY, hives duloxetine [From CYMBALTA] Adverse Reaction (Intermediate, Verified 09/07/23 10:32) VAGINAL BLEEDING HPI HPI Comments History of Present Illness Details 43-year-old female, 1 year 6 months post sleeve gastrectomy performed on 02/06/2022. Preop weight (02/11/2022) 205# weight at 3 MO 176# weight at 6 MO PO 173 weight weight (12/09/22) 188# Weight in Dec 184 current weight 193.8 pounds, BMI 34.3 Goal 140# She states she is frustrated with her current weight and complains of feeling hungry especially at night. Meal plan: 5a- 2 eggs w 1/2 bagel w cream cheese or cottage cheese and black coffee 10a- 2 oranges noon-Orgain 2 scoops in 8 oz 1% milk 3pm another shake 6pm meal-1/2 breast in air fryer w fried plantains 7 pm chips, another bagel or 9 pm more chips 10 pm chips or chocolate w hazelnuts Drinkin-32 oz water, 4 oz zero pink lemonade at dinner Exercise plan: 6-7 per week stationary bike 300 calorie s Any post op complications: none FANNY: never DM: never HTN: improved Hyperlipidemia: improved GERD:?0-5 scale ??0 = no symptoms ??1 = symptoms noticeable but not bothersome 2 =symptoms bothersome but not daily ? 3 = symptoms bothersome and daily 4 = symptoms affect daily activities 5 = symptoms are incapacitating, unable to do daily activities ? How bad is the heartburn: 0 ? Heartburn while lying down: 0 ? Heartburn when standing up: 0 ? Heartburn after meals: 0 ? Does heartburn change your diet: 0 ? Does heartburn wake you up from sleep: 0 ? Do you have difficulty swallowin ? Do you have pain with swallowin ? If you take medicine for your reflux, does this affect your daily life: 0 Satisfaction with present condition - satisfied or not satisfied: not satisfied. [facility] History Refused influenza vaccine Annual visit for general adult medical examination with abnormal findings PTSD (post-traumatic stress disorder) Insomnia PONV (postoperative nausea and vomiting) Gastric ulcer Cholelithiasis Sacroiliitis Spondylosis of lumbar region without myelopathy or radiculopathy Scoliosis Goiter Restless leg syndrome ADHD (attention deficit hyperactivity disorder) Anxiety OCD (obsessive compulsive disorder) Hypertension GERD (gastroesophageal reflux disease) Vitamin D deficiency PCOS (polycystic ovarian syndrome) Body mass index [BMI]40.0-44.9, adult Irritable bowel syndrome with diarrhea Environmental and seasonal allergies Breast cancer screening by mammogram Dyslipidemia Gastritis Oral abscess Morbid obesity Hirsutism Androgenetic alopecia Telogen effluvium Heartburn Degenerative disc disease, lumbar Fibromyalgia Bipolar disorder Rosacea Acquired hypothyroidism Surgical History Hx of bariatric surgery Hx of shoulder surgery S/P laparoscopic sleeve gastrectomy Hx of cholecystectomy Hx of colonoscopy Miscarriage History of nasal surgery History of rotator cuff surgery Family History Father Diabetes mellitus Mother OCD (obsessive compulsive disorder) EITAN (generalized anxiety disorder) HTN (hypertension) Cancer Cervical cancer Family/Other FH: mental illness Maternal Grandmother EITAN (generalized anxiety disorder) Glaucoma Mental health disorder Maternal Grandfather Alzheimer disease Maternal Aunt Hypothyroidism Mental health disorder Paternal Grandmother Unknown family medical history Paternal Grandfather Unknown family medical history Sister Hypothyroidism Paternal Aunt Substance use disorder Maternal Uncle Substance use disorder Social History Household Members Other:: brother Housing: Apartment Are you a primary home day care provider to a significant other at home: No Do you presently have visiting nurse or other home services: No Alcohol intake: never Patient Tobacco Use Status: Former Tobacco user Quit Date: 2011 Tobacco use type: Cigarette Cigarettes Per Day: 20 Years Smoked: 3 e-Cigarette/Vaping Use: Never Used service: No Current occupational status: disabled Cognitive needs: No Hearing needs: No Vision needs: No Review of Systems Const All systems reviewed & are unremarkable except as noted in HPI and below Physical Exam Const General: healthy appearing and no acute distress Resp Effort & Inspection: normal respiratory effort Auscultation: clear to auscultation bilaterally Cardio Rate: regular rate Rhythm: regular rhythm GI Auscultation: normal bowel sounds Extrem General: Yes normal to inspection Assessment & Plan Assessment & Plan (1) Obesity: Code(s): E66.9 - Obesity, unspecified Plan: Change meal plan: 05:00, 2 eggs with veggies 09:00 to 11:00 or gain shake with 1 scoop in 8 oz unsweetened almond milk Noon, 2 are inches or 3/4 cut mixed Evan's 14:00 to 16:00 another shake 18:00 dinner, 7 forks of protein and 7 forks of vegetables or salad, no fried plantains Last shake at 20:00 to 22:00. Eighteen month postop labs ordered. Follow-up with Jazmín in 6 weeks. Orders: Orders Lipid Panel Today E03.9 - Hypothyroidism, unspecified, E51.9 - Thiamine deficiency, unspecified, E55.9 - Vitamin D deficiency, unspecified, E66.9 - Obesity, unspecified, E78.5 - Hyperlipidemia, unspecified, I10 - Essential (primary) hypertension Complete Blood Count Auto Diff Today E03.9 - Hypothyroidism, unspecified, E51.9 - Thiamine deficiency, unspecified, E55.9 - Vitamin D deficiency, unspecified, E66.9 - Obesity, unspecified, E78.5 - Hyperlipidemia, unspecified, I10 - Essential (primary) hypertension Vitamin B1 Today E03.9 - Hypothyroidism, unspecified, E51.9 - Thiamine deficiency, unspecified, E55.9 - Vitamin D deficiency, unspecified, E66.9 - Obesity, unspecified, E78.5 - Hyperlipidemia, unspecified, I10 - Essential (primary) hypertension Ferritin Today E03.9 - Hypothyroidism, unspecified, E51.9 - Thiamine deficiency, unspecified, E55.9 - Vitamin D deficiency, unspecified, E66.9 - Obesity, unspecified, E78.5 - Hyperlipidemia, unspecified, I10 - Essential (primary) hypertension PTHI Today E03.9 - Hypothyroidism, unspecified, E51.9 - Thiamine deficiency, unspecified, E55.9 - Vitamin D deficiency, unspecified, E66.9 - Obesity, unspecified, E78.5 - Hyperlipidemia, unspecified, I10 - Essential (primary) hypertension TSH reflex Free T4 Today E03.9 - Hypothyroidism, unspecified, E51.9 - Thiamine deficiency, unspecified, E55.9 - Vitamin D deficiency, unspecified, E66.9 - Obes ity, unspecified, E78.5 - Hyperlipidemia, unspecified, I10 - Essential (primary) hypertension Insulin Today E03.9 - Hypothyroidism, unspecified, E51.9 - Thiamine deficiency, unspecified, E55.9 - Vitamin D deficiency, unspecified, E66.9 - Obesity, unspecified, E78.5 - Hyperlipidemia, unspecified, I10 - Essential (primary) hypertension IRON PROFILE Today E03.9 - Hypothyroidism, unspecified, E51.9 - Thiamine deficiency, unspecified, E55.9 - Vitamin D deficiency, unspecified, E66.9 - Obesity, unspecified, E78.5 - Hyperlipidemia, unspecified, I10 - Essential (primary) hypertension Vitamin B12 and Folate Today E03.9 - Hypothyroidism, unspecified, E51.9 - Thiamine deficiency, unspecified, E55.9 - Vitamin D deficiency, unspecified, E66.9 - Obesity, unspecified, E78.5 - Hyperlipidemia, unspecified, I10 - Essential (primary) hypertension Zinc Today E03.9 - Hypothyroidism, unspecified, E51.9 - Thiamine deficiency, unspecified, E55.9 - Vitamin D deficiency, unspecified, E66.9 - Obesity, unspecified, E78.5 - Hyperlipidemia, unspecified, I10 - Essential (primary) hypertension Vitamin A Today E03.9 - Hypothyroidism, unspecified, E51.9 - Thiamine deficiency, unspecified, E55.9 - Vitamin D deficiency, unspecified, E66.9 - Obesity, unspecified, E78.5 - Hyperlipidemia, unspecified, I10 - Essential (primary) hypertension C Reactive Protein Today E03.9 - Hypothyroidism, unspecified, E51.9 - Thiamine deficiency, unspecified, E55.9 - Vitamin D deficiency, unspecified, E66.9 - Obesity, unspecified, E78.5 - Hyperlipidemia, unspecified, I10 - Essential (primary) hypertension Vitamin D 25-OH Total Today E03.9 - Hypothyroidism, unspecified, E51.9 - Thiamine deficiency, unspecified, E55.9 - Vitamin D deficiency, unspecified, E66.9 - Obesity, unspecified, E78.5 - Hyperlipidemia, unspecified, I10 - Essential (primary) hypertension Hemoglobin A1c Today E03.9 - Hypothyroidism, unspecified, E51.9 - Thiamine deficiency, unspecified, E55.9 - Vitamin D deficiency, unspecified, E66.9 - O besity, unspecified, E78.5 - Hyperlipidemia, unspecified, I10 - Essential (primary) hypertension ECG 12 lead EKG Today E03.9 - Hypothyroidism, unspecified, E51.9 - Thiamine deficiency, unspecified, E55.9 - Vitamin D deficiency, unspecified, E66.9 - Obesity, unspecified, E78.5 - Hyperlipidemia, unspecified, I10 - Essential (primary) hypertension Basic Metabolic Panel Today E03.9 - Hypothyroidism, unspecified, E51.9 - Thiamine deficiency, unspecified, E55.9 - Vitamin D deficiency, unspecified, E66.9 - Obesity, unspecified, E78.5 - Hyperlipidemia, unspecified, I10 - Essential (primary) hypertension Coding Level of Care Code Est Pt Level 4 (41143) Diagnoses Obesity E66.9 Time Spent (min) 40
[2023-09-14 13:36] VITALS: BP 109/67; PULSE 82; TEMP 36.1; O2SAT 100; BMI 34.3
== END 2023-09-14 14:01 | disposition home or self-care (01) ==
PROVIDERS: PCP Internal Medicine; Visit Provider Physician Assistant Surgical
DX: E66.9 Obesity, unspecified (principal); Z68.34 Body mass index [BMI] 34.0-34.9, adult; Z90.3 Acquired absence of stomach [part of]; Z98.84 Bariatric surgery status
CPT/HCPCS: 99215

== ENCOUNTER → 2023-09-14 13:16 | Outpatient (BNVA) | payer OTHER, SELFPAY | PROVIDERS: PCP Internal Medicine; Visit Provider Physician Assistant Surgical | DX: E66.9 Obesity, unspecified (principal); Z98.84 Bariatric surgery status; Z68.34 Body mass index [BMI] 34.0-34.9, adult | CPT/HCPCS: 99212 ==

== ENCOUNTER → 2023-09-15 12:02 | Outpatient (BNVA) | payer OTHER, SELFPAY | PROVIDERS: PCP Internal Medicine; Visit Provider Counselor Mental Health ==

== ENCOUNTER 2023-09-18 11:56 | Outpatient (AMB) | payer OTHER, SELFPAY ==
--- NOTE | 2023-09-18 12:23 | MHC.PC.OV ---
Vital Signs 09/18/23 12:24 Height 5 ft 3 in Weight 197 lb BMI 34.9 BP 118/86 Blood Pressure Location Lt brachial Position Sitting Pulse 79 Pulse Source Pulse Oximeter Pulse Oximetry (%) 97 Oxygen Delivery Method Room Air Intake Visit Reasons: check heart/recheck Intake Note: pt says she was told to make appt today for an EKG Allergies cat dander [CAT DANDER] Allergy (Mild, Verified 09/18/23 12:50) EYES- TEAR, ITCHY, face swells dog dander [DOG DANDER] Allergy (Mild, Verified 09/18/23 12:50) EYES- TEAR, ITCHY, hives duloxetine [From CYMBALTA] Adverse Reaction (Intermediate, Verified 09/18/23 12:50) VAGINAL BLEEDING Medication List - Last Reconciled 09/18/23 by Elke Cross MD acetaminophen ER (Tylenol 8 Hour) 650 mg PO Q12H albuterol sulfate 90 mcg/actuation (Ventolin HFA) 1 - 2 puffs inhalation Q4H PRN alclometasone 0.05% appl topical BID PRN aripiprazole 2 mg PO DAILY calcium carbonate-vitamin D3 250 mg-3.125 mcg (125 unit) 1 tab PO BID cetirizine 10 mg PO DAILY PRN chlorhexidine gluconate 0.12% mL PO TID-QID clindamycin phosphate 1% topical BID clonazepam mg PO cyclobenzaprine 10 mg PO BEDTIME PRN dextroamphetamine-amphetamine 20 mg ER 1 cap PO BID diclofenac sodium 1% (Voltaren Arthritis Pain) 2 grams topical BID fluticasone propionate 50 mcg/actuation 2 sprays intranasal DAILY ivermectin 1% (Soolantra) 1 appl topical DAILY levothyroxine 50 mcg PO DAILY 30 days metformin 500 mg PO BID 30 days multivitamin 1 tab PO DAILY nabumetone 500 mg PO BID PRN pregabalin 75 mg PO BID spironolactone 25 mg PO DAILY vilazodone 40 mg PO DAILY Tobacco use date assessed: 09/07/23 Dental Screening Dental Screen Date: 09/18/23 Did you have a dental visit in the last 12 months?: Yes Did you have a dental problem in the last 6 months where you did not have access to dental care?: No Was dental information given to patient?: Patient has dentist HPI check heart/recheck HPI Details . 43-year-old lady here today complaining of intermittent episode of sharp pains on anterior chest wall, unrelated to food intake, or exertion. This has been ongoing now for the last several weeks, on and off accompanied by intermittent episodes of lightheadedness. Reviewed recent fasting labs which showed normal CBC, normal fasting glucose, LDL cholesterol slightly elevated at 137 mg/dL, normal thyroid and vitamin-D and B12 levels. Denies heartburn, no abdominal pain or alteration in bowel habits. [facility] Medical History (Updated 09/18/23 @ 13:04 by Elke Cross MD) Refused influenza vaccine PTSD (post-traumatic stress disorder) Insomnia PONV (postoperative nausea and vomiting) Gastric ulcer Cholelithiasis Sacroiliitis Spondylosis of lumbar region without myelopathy or radiculopathy Scoliosis Goiter Restless leg syndrome ADHD (attention deficit hyperactivity disorder) Anxiety OCD (obsessive compulsive disorder) Hypertension GERD (gastroesophageal reflux disease) Vitamin D deficiency PCOS (polycystic ovarian syndrome) Body mass index [BMI]40.0-44.9, adult Irritable bowel syndrome with diarrhea Environmental and seasonal allergies Breast cancer screening by mammogram Dyslipidemia Gastritis Oral abscess Morbid obesity Hirsutism Androgenetic alopecia Telogen effluvium Heartburn Degenerative disc disease, lumbar Fibromyalgia Bipolar disorder Rosacea Acquired hypothyroidism Surgical History Hx of bariatric surgery Hx of shoulder surgery S/P laparoscopic sleeve gastrectomy Hx of cholecystectomy Hx of colonoscopy Miscarriage History of nasal surgery History of rotator cuff surgery Family History Father Diabetes mellitus Mother OCD (obsessive compulsive disorder) EITAN (generalized anxiety disorder) HTN (hypertension) Cancer Cervical cancer Family/Other FH: mental illness Maternal Grandmother EITAN (generalized anxiety disorder) Glaucoma Mental health disorder Maternal Grandfather Alzheimer disease Maternal Aunt Hypothyroidism Mental health disorder Paternal Grandmother Unknown family medical history Paternal Grandfather Unknown family medical history Sister Hypothyroidism Paternal Aunt Substance use disorder Maternal Uncle Substance use disorder Social History Household Members Other:: brother Housing: Apartment Are you a primary health careers instructor to a significant other at home: No Do you presently have visiting nurse or other home services: No Alcohol intake: never Patient Tobacco Use Status: Former Tobacco user Quit Date: 2011 Tobacco use type: Cigarette Cigarettes Per Day: 20 Years Smoked: 3 e-Cigarette/Vaping Use: Never Used service: No Current occupational status: disabled Cognitive needs: No Hearing needs: No Vision needs: No Questionnaire Thrive Questionnaire Date Thrive assessed: 09/18/23 I am a: Patient What is your living situation today?: I have a place to live, but I am worried about losing it in the future Within the past 12 months, did the food you bought not last and you didn't have the money to get more?: Often true Within the past 12 months, did you worry whether your food would run out before you got money to buy more?: Often true Do you have trouble paying for medicines?: Yes Do you have trouble getting transportation to medical appointments?: No Do you have trouble paying your heating and electricity bill?: Yes Do you have trouble taking care of your child, family member or friend?: No Do you have trouble with day-to-day activities such as bathing, preparing meals, shopping, managing finances, etc.?: Yes Are you currently unemployed and looking for a job?: No Are you interested in more education?: No Please select the resources that you would like help with: Housing/[facility], Food, Paying for medicine, Utilities and Daily support EITAN-7 AMB Questionnaire EITAN-7 Date EITAN - 7 assessed: 08/17/23 Source: Developed by Drs. Parviz Lora, Ghazala Chang, Ryan Holland and colleagues, with an educational bryan from [employer]. Review of Systems Const All systems reviewed & are unremarkable except as noted in HPI and below Physical exam (Primary Care) Vital Signs: Last Vital Signs Pulse 79 09/18/23 12:24 BP 118/86 09/18/23 12:24 Pulse Ox 97 09/18/23 12:24 Oxygen Delivery Method Room Air 09/18/23 12:24 BMI result Body Mass Index 34.9 Tobacco/Smoking Status: Tobacco use Status Tobacco use date assessed 09/07/23 09/18/23 12:24 Patient Tobacco Use Status Former Tobacco user 09/18/23 12:24 Tobacco use type Cigarette 09/18/23 12:24 e-Cigarette/Vaping Use Never Used 09/18/23 12:24 Thrive Assessment: Date of Thrive Assessment Date Thrive assessed 04/28/22 09/18/23 12:24 Const Other: Alert oriented x3, no acute distress noted, ambulatory with normal gait HENMT Head: Yes normocephalic Face and sinus: Yes face symmetric Mouth: Normal oral and palatal mucosa present, oropharynx normal and moist mucous membranes Neck Neck: Yes full ROM, Yes no lymphadenopathy and Yes supple Chest Chest palpation & inspection: normal inspection of the chest and normal palpation of entire chest wall Breast/axilla inspection: normal inspection of the breasts Breast/axilla palpation: normal palpation of the breasts Resp Auscultation: clear to auscultation bilaterally Cardio Rate: regular rate Rhythm: regular rhythm Heart sounds: S1 normal heart sound present and S2 normal heart sound present GI Inspection: Yes normal to inspection Palpation (GI): Soft to palpation, nontender and no guarding Skin General skin exam: no rashes or lesions noted Neuro General: gait normal, tone normal, moves all extremities, Normal light touch and pain sensation and no focal motor deficits Extrem General: Yes full ROM, Yes no joint enlargement, Yes no clubbing, cyanosis or edema, Yes no pedal edema, Yes no calf tenderness and Yes normal gait Assessment and Plan Assessment & Plan (1) Chest pain, atypical: Code(s): R07.89 - Other chest pain Plan: Twelve lead EKG done today showed normal sinus rhythm with no acute ST-T changes, blood pressure has been within normal limits, labs reviewed showed normal CBC, fasting glucose, mildly elevated LDL cholesterol at 137 mg/dL, normal liver enzyme and electrolytes . Pain likely musculoskeletal in etiology. Advised to take Tylenol 650 mg 1 tablet every 8 hours as needed pain. However she has been advised that if pain progressively worsened 6 especially if accompanied by any shortness of breath, lightheadedness, nausea severe headache, to call 911, and go to the ER for further evaluation Orders: Orders AMB EKG-In Office 09/18/23 Z13.6 - Encounter for screening for cardiovascular disorders, R07.89 - Other chest pain Coding Level of Care Code Est Pt Level 3 (39970) Diagnoses Chest pain, atypical R07.89
[2023-09-18 12:24] VITALS: BP 118/86; PULSE 79; O2SAT 97; BMI 34.9
== END 2023-09-18 15:15 | disposition home or self-care (01) ==
PROVIDERS: PCP Internal Medicine; Visit Provider Internal Medicine
DX: R07.89 Other chest pain (principal)
CPT/HCPCS: 99213

== ENCOUNTER 2023-09-20 15:10 | Outpatient (REF) | payer OTHER, SELFPAY ==
--- NOTE | ~2023-09-20 | MM_ITS ---
EXAMINATION: MM SCREENING DIGITAL BREAST TOMOSYNTHESIS, BILATERAL CLINICAL INFORMATION: Screening. Asymptomatic. COMPARISON: Mammography: This study is compared with prior exams dating back to 2020. TECHNIQUE: Digital breast tomosynthesis is performed in both the craniocaudal and mediolateral oblique views along with computer-aided detection (CAD). Synthesized 2D images are generated from the tomosynthesis. FINDINGS: The breasts are almost entirely fatty (ACR BI-RADS breast composition Category a). There are no significant masses, abnormal calcifications, or other abnormalities. MM/MM tomosynthesis screening BI IMPRESSION: No mammographic evidence of malignancy. ASSESSMENT: BI-RADS BI-RADS 1 - Negative RECOMMENDATION: Routine annual mammography screening. 1 year F/U This examination should not preclude the clinical evaluation of a suspicious palpable abnormality. This patient's information was entered into a reminder system with a target due date for their next mammogram.
== END 2023-09-20 15:11 | disposition home or self-care (01) ==
LOC: HO.MAMMO 15:10
PROVIDERS: PCP Internal Medicine; Visit Provider Internal Medicine
DX: Z12.31 Encounter for screening mammogram for malignant neoplasm of breast (principal)
CPT/HCPCS: 77063; 77067

== ENCOUNTER → 2023-09-20 15:15 | Outpatient (BNV) | payer OTHER, SELFPAY | PROVIDERS: PCP Internal Medicine; Visit Provider Radiology Diagnostic Radiology | DX: Z12.31 Encounter for screening mammogram for malignant neoplasm of breast (principal) | CPT/HCPCS: 77063; 77067 ==

== ENCOUNTER → 2023-09-22 10:19 | Outpatient (BNVA) | payer OTHER, SELFPAY | PROVIDERS: PCP Internal Medicine; Visit Provider Counselor Mental Health ==

== ENCOUNTER 2023-10-19 10:32 | Outpatient (AMB) | payer OTHER, SELFPAY ==
--- NOTE | 2023-10-19 10:40 | MHC.OFFVIS ---
Intake Vital Signs 10/19/23 10:41 Height 5 ft 3 in Weight 200 lb 13.458 oz BMI 35.6 Pulse 93 Pulse Source Pulse Oximeter Temp 97 F Temp Source Skin Pulse Oximetry (%) 98 Oxygen Delivery Method Room Air Intake Visit Reasons: hip pain/cortisone injection? Intake Note: Patient presents today for ED follow up and possible hip injection. Seen at [facility]. Allergies cat dander [CAT DANDER] Allergy (Mild, Verified 10/19/23 10:44) EYES- TEAR, ITCHY, face swells dog dander [DOG DANDER] Allergy (Mild, Verified 10/19/23 10:44) EYES- TEAR, ITCHY, hives duloxetine [From CYMBALTA] Adverse Reaction (Intermediate, Verified 10/19/23 10:44) VAGINAL BLEEDING Medication List - Last Reconciled 10/19/23 by Rober Salcido MD acetaminophen ER (Tylenol 8 Hour) 650 mg PO Q12H albuterol sulfate 90 mcg/actuation (Ventolin HFA) 1 - 2 puffs inhalation Q4H PRN alclometasone 0.05% appl topical BID PRN aripiprazole 2 mg PO DAILY benzoyl peroxide 10% topical calcium carbonate-vitamin D3 250 mg-3.125 mcg (125 unit) 1 tab PO BID cetirizine 10 mg PO DAILY PRN chlorhexidine gluconate 0.12% mL PO TID-QID clindamycin phosphate 1% topical BID clonazepam mg PO clonidine HCl 0.1 mg PO BID cyclobenzaprine 10 mg PO BEDTIME PRN dextroamphetamine-amphetamine 20 mg ER 1 cap PO BID fluticasone propionate 50 mcg/actuation 2 sprays intranasal DAILY ivermectin 1% (Soolantra) 1 appl topical DAILY ketotifen fumarate 0.025%(0.035%) drps ophthalmic (eye) levothyroxine 50 mcg PO DAILY 30 days metformin 500 mg PO BID 30 days multivitamin 1 tab PO DAILY nabumetone 500 mg PO BID PRN pregabalin 75 mg PO BID spironolactone 25 mg PO DAILY vilazodone 40 mg PO DAILY HPI HPI Comments History of Present Illness Details The patient returns with complaints of pain in the lower back. This seems to be more on the left side with radiation to the left buttock and thigh. Symptoms are worse at night and after prolonged sitting. They seem to get better towards the end of the day. She did visit the ER. They prescribed a short-term course of Toradol and that seemed to help but symptoms have come back. She is thought to have fibromyalgia and does take pregabalin 75 mg b.i.d., occasional acetaminophen, p.r.n. cyclobenzaprine, Abilify, and vilazodone. She has never had inflammatory bowel symptoms or inflammatory eye symptoms. She did receive a lidocaine injection from pain management. That seemed to help, according to the record, for a few days remarkably so, but she did want to proceed with further injections. [facility] Medical History (Updated 10/19/23 @ 11:20 by Rober Salcido MD) Refused influenza vaccine PTSD (post-traumatic stress disorder) Insomnia PONV (postoperative nausea and vomiting) Gastric ulcer Cholelithiasis Sacroiliitis Spondylosis of lumbar region without myelopathy or radiculopathy Scoliosis Goiter Restless leg syndrome ADHD (attention deficit hyperactivity disorder) Anxiety OCD (obsessive compulsive disorder) Hypertension GERD (gastroesophageal reflux disease) Vitamin D deficiency PCOS (polycystic ovarian syndrome) Body mass index [BMI]40.0-44.9, adult Irritable bowel syndrome with diarrhea Environmental and seasonal allergies Breast cancer screening by mammogram Dyslipidemia Gastritis Oral abscess Morbid obesity Hirsutism Androgenetic alopecia Telogen effluvium Heartburn Degenerative disc disease, lumbar Fibromyalgia Bipolar disorder Rosacea Acquired hypothyroidism Surgical History Hx of bariatric surgery Hx of shoulder surgery S/P laparoscopic sleeve gastrectomy Hx of cholecystectomy Hx of colonoscopy Miscarriage History of nasal surgery History of rotator cuff surgery Family History Father Diabetes mellitus Mother OCD (obsessive compulsive disorder) EITAN (generalized anxiety disorder) HTN (hypertension) Cancer Cervical cancer Family/Other FH: mental illness Maternal Grandmother EITAN (generalized anxiety disorder) Glaucoma Mental health disorder Maternal Grandfather Alzheimer disease Maternal Aunt Hypothyroidism Mental health disorder Paternal Grandmother Unknown family medical history Paternal Grandfather Unknown family medical history Sister Hypothyroidism Paternal Aunt Substance use disorder Maternal Uncle Substance use disorder Social History Household Members Other:: brother Housing: Apartment Are you a primary critical care physician assistant to a significant other at home: No Do you presently have visiting nurse or other home services: No Alcohol intake: never Patient Tobacco Use Status: Former Tobacco user Quit Date: 2011 Tobacco use type: Cigarette Cigarettes Per Day: 20 Years Smoked: 3 e-Cigarette/Vaping Use: Never Used service: No Current occupational status: disabled Cognitive needs: No Hearing needs: No Vision needs: No Review of Systems Const Details: Negative for appetite change, weight change, fever, chills, malaise and fatigue Eyes Details: Occasional headaches. Negative for vision change, dry eyes, and dizziness ENT Details: She has had 3 days of an earache on the left. This is associated with a feeling of block hearing. She has had previous episodes of otitis. Negative for tinnitus, oral ulcer, nose bleeds and oral dryness. Card Details: Negative chest pain, edema and syncope Resp Details: Negative for SOB, cough and wheezing GI Details: Negative indigestion/heartburn, nausea, abdominal pain, bowel changes, diarrhea, constipation and bloody stool. Details: Negative for dysuria, hematuria, nocturia, decreased force/flow and genital discharge Skin/Breast Details: Negative for itching, rash, hives, Raynaud's symptoms, sun sensitivity, and skin cancer Neuro Details: Negative for epilepsy, palsy, stroke, changes in speech, tingling and weakness Psych Details: anxiety, depression stable with current treatment. Endo Details: Negative for polyuria and polydypsia Daniel/Lymph Details: Negative for excessive bruising or bleeding. Physical Exam Vital Signs: Last Vital Signs Temp 97 F 10/19/23 10:41 Pulse 93 10/19/23 10:41 Pulse Ox 98 10/19/23 10:41 Oxygen Delivery Method Room Air 10/19/23 10:41 BMI result Body Mass Index 35.6 APPEARANCE: Patient in no acute distress EYES no redness, pupils equal and reactive to light, eyelids normal EARS: There is slight tenderness over the left TMJ. The left ear canal looks normal but there is some redness in the left tympanic membrane. The right canal and tympanic memory look normal. EXTREMITIES: No edema, no calf tenderness, normal peripheral pulses. NEURO: Oriented and alert x3. No focal weakness. Reflexes symmetric. Gait normal. SKIN: No inflammatory or neoplastic lesions. Normal color and turgor JOINT EXAM: ?? Cervical Spine: Full range of motion without pain; no tenderness. Thoracic Spine:?No tenderness on palpation. Lumbar Spine: Alignment normal.? Full range of motion with mild pain at 60 degrees of flexion. Slight lumbar muscle tenderness. Hands: Normal pain-free range of motion with slight tenderness across the base of the thumbs and in the PIP joints but no triggering, swelling, increased warmth or erythema. Wrists: Normal pain-free range of motion without tenderness, swelling, increased warmth or erythema. Elbows: Mild pain at the extremes of normal flexion or extension with some slight dorsal tenderness but no swelling, increased warmth or erythema. Shoulders: LEFT:? ? Full range of motion without pain. No tenderness, weakness, swelling, increased warmth or erythema. ? RIGHT:? Full range of motion without pain. No tenderness, weakness, swelling, increased warmth or erythema. Hips:? Full range of motion without pain. Hip bursa: No tenderness. Knees:?? Normal pain-free range of motion with slight patellofemoral crepitus and some mild medial compartment tenderness but no effusion, soft tissue swelling, increased warmth or erythema.? Ankles:? Normal pain-free range of motion without tenderness, swelling, increased warmth or erythema. Feet:? Normal pain-free range of motion without tenderness, swelling, increased warmth or erythema. Tender points: mild tenderness to digital palpation at the occiput, trapezius, second rib, lateral epicondyle, knees, greater trochanter and gluteal areas bilaterally. Results Reviewed Results Reviewed: [address] [address] XRay Report Signed Patient: Jaz Torres MR#: [id number] : 1980 Acct:[id number] Age/Sex: 42 / F ADM Date: 12/08/[address]: María Moran NP Ordering Physician: María Moran NP Date of Service: 12/08/22 Procedure(s): XR sacroiliac joint min 3V Accession Number(s): [id number] cc: María Moran NP~ EXAMINATION: XR SACROILIAC JOINTS CLINICAL INFORMATION: M79.18 - Myalgia, other site COMPARISON: Bilateral hips 10/29/2020, lumbar spine 10/20/2015. TECHNIQUE: 4 views of the sacroiliac joints FINDINGS: The SI joints appear normal. No joint narrowing or subchondral sclerosis or erosive changes. No ankylosis. The hip joints are unremarkable. There is some mineralization adjacent to the posterior superior left acetabulum similar to 2015. XR/XR sacroiliac joint min 3V IMPRESSION: Normal sacroiliac joints. 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 This had been helped previously with sacroiliac joint injections, was preceded by previous episodes similar to this since her 30s, has improved with physical activity and also has improved with NSAIDs. So many of these characteristics of loki pain suggest spondyloarthritis or sacroiliitis rather than just mechanical back pain and fibromyalgia. There is some evidence certainly for fibromyalgia in her case but given the inflammatory symptoms I think it be reasonable that we look for sacroiliitis with pelvic CT scan looking at the edema around the SI joints. We will see if we can arrange that with MRI and get approval from her insurance. I will see if we can treat her with an NSAID, meloxicam 15 mg daily. She is aware that the there is some increased risk of GI side effects since she has had some gastric surgery. She does seem to tolerate the nabumetone although does not take it that regularly. Today she appears to have some otitis media on the left. I did prescribe at her request some amoxicillin 500 Q t.i.d.. If this does not improve she will need to see her primary or ENT for follow-up. We will have her come back in 2 months to report on how she is doing with the meloxicam and to review hopefully by then her pelvic MRI looking at the SI joints. 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
[2023-10-19 10:41] VITALS: PULSE 93; TEMP 36.1; O2SAT 98; BMI 35.6
== END 2023-10-19 11:22 | disposition home or self-care (01) ==
LOC: HO.RHE 10:32
PROVIDERS: PCP Internal Medicine; Visit Provider Internal Medicine Rheumatology
DX: M47.817 Spondylosis without myelopathy or radiculopathy, lumbosacral region (principal); H66.92 Otitis media, unspecified, left ear; M54.9 Dorsalgia, unspecified
CPT/HCPCS: 99214

== ENCOUNTER → 2023-10-19 10:32 | Outpatient (BNVA) | payer OTHER, SELFPAY | PROVIDERS: PCP Internal Medicine; Visit Provider Internal Medicine Rheumatology | DX: M47.817 Spondylosis without myelopathy or radiculopathy, lumbosacral region (principal); H66.92 Otitis media, unspecified, left ear; M54.9 Dorsalgia, unspecified | CPT/HCPCS: 99212 ==

== ENCOUNTER 2023-10-25 10:17 | Outpatient (AMB) | payer OTHER, SELFPAY ==
--- NOTE | 2023-10-25 10:19 | MHC.OFFVIS ---
Intake Vital Signs 10/25/23 10:20 Height 5 ft 3 in Weight 200 lb 6 oz BMI 35.5 BP 116/74 Blood Pressure Location Lt brachial Position Sitting Pulse 87 Pulse Oximetry (%) 96 Intake Visit Reasons: F/U 2nd Diagnostic Injection Discussion/confirmed Allergies cat dander [CAT DANDER] Allergy (Mild, Verified 10/19/23 10:44) EYES- TEAR, ITCHY, face swells dog dander [DOG DANDER] Allergy (Mild, Verified 10/19/23 10:44) EYES- TEAR, ITCHY, hives duloxetine [From CYMBALTA] Adverse Reaction (Intermediate, Verified 10/19/23 10:44) VAGINAL BLEEDING HPI HPI Comments History of Present Illness Details Jaz is here for the follow-up after 1 year of absence. She received diagnostic number 1 Bilateral medial branch block L3-L4 does ramus L5 with lidocaine on 06/07/2022. At that time she reported slow onset of pain relief. Before the procedure her pain level was 6/10. At 1st hour her pain was 5/10, at 02:00 hours her pain became 4/10. At 03:00 hours she reported her pain is 2/10 at 05:00 hours her pain was 1/10 and it 6 hours her pain disappeared. Typically this is the time when pain comes back full strength after lidocaine injection. We agreed that I will try another diagnostic medial branch block this time with ropivacaine 0 bupivacaine as a number to injection however patient decided not to come for the scheduled procedure because as she reported today she was scared of the injection. She is asking me for injection of Toradol. I explained to her that intramuscular injection of Toradol can be given to her by primary care physician. She does not have to go to visit a specialist to received Toradol injection in the office. Then she started to say about steroid injections. She wants me to perform not a diagnostic but therapeutic medial branch block L3-L4 L5. I will schedule her for this injection as she requests. She will be followed up after the procedure. Prior: complains on lower back pain. She was diagnosed by a primary care physician with sacroiliitis. She reports pain in projection of bilateral sacroiliac joints radiating into the lateral hips and anterior thighs. his pain started 6 months ago. she- suffers from scoliosis and lumbar spondylosis as well. S She is suffering from bipolar disorder. She had x-ray done in [facility] which apparently demonstrated lumbar spondylosis. She also had rheumatological evaluation which established diagnosis of sacroiliac joint dysfunction. She had physical therapy prolonged course with multiple sessions she reports that physical therapy did not help her pain at all. She received injections her shoulder but never injection in her lower back [facility] [place] Medical History (Updated 10/19/23 @ 11:20 by Rober Salcido MD) Refused influenza vaccine PTSD (post-traumatic stress disorder) Insomnia PONV (postoperative nausea and vomiting) Gastric ulcer Cholelithiasis Sacroiliitis Spondylosis of lumbar region without myelopathy or radiculopathy Scoliosis Goiter Restless leg syndrome ADHD (attention deficit hyperactivity disorder) Anxiety OCD (obsessive compulsive disorder) Hypertension GERD (gastroesophageal reflux disease) Vitamin D deficiency PCOS (polycystic ovarian syndrome) Body mass index [BMI]40.0-44.9, adult Irritable bowel syndrome with diarrhea Environmental and seasonal allergies Breast cancer screening by mammogram Dyslipidemia Gastritis Oral abscess Morbid obesity Hirsutism Androgenetic alopecia Telogen effluvium Heartburn Degenerative disc disease, lumbar Fibromyalgia Bipolar disorder Rosacea Acquired hypothyroidism Surgical History Hx of bariatric surgery Hx of shoulder surgery S/P laparoscopic sleeve gastrectomy Hx of cholecystectomy Hx of colonoscopy Miscarriage History of nasal surgery History of rotator cuff surgery Family History Father Diabetes mellitus Mother OCD (obsessive compulsive disorder) EITAN (generalized anxiety disorder) HTN (hypertension) Cancer Cervical cancer Family/Other FH: mental illness Maternal Grandmother EITAN (generalized anxiety disorder) Glaucoma Mental health disorder Maternal Grandfather Alzheimer disease Maternal Aunt Hypothyroidism Mental health disorder Paternal Grandmother Unknown family medical history Paternal Grandfather Unknown family medical history Sister Hypothyroidism Paternal Aunt Substance use disorder Maternal Uncle Substance use disorder Social History Household Members Other:: brother Housing: Apartment Are you a primary care process manager to a significant other at home: No Do you presently have visiting nurse or other home services: No Alcohol intake: never Patient Tobacco Use Status: Former Tobacco user Quit Date: 2011 Tobacco use type: Cigarette Cigarettes Per Day: 20 Years Smoked: 3 e-Cigarette/Vaping Use: Never Used service: No Current occupational status: disabled Cognitive needs: No Hearing needs: No Vision needs: No Review of Systems Const All systems reviewed & are unremarkable except as noted in HPI and below Physical Exam Vital Signs: Last Vital Signs Pulse 87 10/25/23 10:20 BP 116/74 10/25/23 10:20 Pulse Ox 96 10/25/23 10:20 BMI result Body Mass Index 35.5 Const General: cooperative, no acute distress and well developed Nutritional Appearance: obese Orientation/consciousness: patient oriented x3 HEENT Head: Yes normal to inspection Eyes Pupils: Equal, round and reactive pupils present EOM: EOMs intact bilaterally Resp Effort & Inspection: normal respiratory effort, able to speak in complete sentences, normal respiratory pattern, no audible wheezes, no cough, respiratory effort not decreased and no grunting Auscultation: clear to auscultation bilaterally Cardio Jugular venous distension: no JVD Rate: regular rate Rhythm: regular rhythm Heart sounds: S1 normal heart sound present and S2 normal heart sound present Back/Spine/Pelvis Other: There is tenderness of palpation in the most lower lumbar spine in paraspinal and spinal regions. There is tenderness on palpation in bilateral sacroiliac joints. Johana finger test is positive. Gaenslen test is equivocal. Lamont test is equivocal. Stinchfield test is positive bilaterally. Loading test is positive bilaterally. Flexing forward does not aggravate her pain. Flexing backwards aggravates her pain. Thoracic/Lumbar Spine: lumbar spinal tenderness Neuro General: patient oriented x3 Cranial nerves: Yes Equal, round and reactive pupils present Extrem General: Yes no pedal edema Psych Speech and movement: Clear speech present Attitude: cooperative 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: Code(s): M47.817 - Spondylosis without myelopathy or radiculopathy, lumbosacral region Plan Atypical and yet very profound and significant pain relief after diagnostic number 1 medial branch block with lidocaine. She did not want to go for diagnostic 2. Medial branch block. She was lost for follow-up for 1 year. Now she is back in my office requesting steroid injections. I will schedule her therapeutic L3-L4 dorsal ramus L5 medial branch block bilateral. To alleviate her anxiety about injection I will give her 1 mg p.o. Ativan 30 minutes before procedure. She will be scheduled for appointment follow-up after the injection. Coding Level of Care Code Est Pt Level 3 (13781) Diagnoses Spondylosis of lumbosacral spine at single level without myelopathy M47.817
[2023-10-25 10:20] VITALS: BP 116/74; PULSE 87; O2SAT 96; BMI 35.5
== END 2023-10-25 10:36 | disposition home or self-care (01) ==
PROVIDERS: PCP Internal Medicine; Visit Provider Anesthesiology
DX: M47.817 Spondylosis without myelopathy or radiculopathy, lumbosacral region (principal)
CPT/HCPCS: 99213

== ENCOUNTER → 2023-10-25 10:17 | Outpatient (BNVA) | payer OTHER, SELFPAY | PROVIDERS: PCP Internal Medicine; Visit Provider Anesthesiology | DX: E66.9 Obesity, unspecified (principal); M47.817 Spondylosis without myelopathy or radiculopathy, lumbosacral region; Z68.35 Body mass index [BMI] 35.0-35.9, adult | CPT/HCPCS: 97803; 99212 ==

== ENCOUNTER 2023-10-25 13:28 | Outpatient (AMB) | payer OTHER, SELFPAY ==
--- NOTE | 2023-10-25 13:17 | MHC.AMNUTRGE ---
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 Pt speaks fluent spanish LSG with Dr. Easley 02/16/22 Preop weight (02/11/2022) 205# weight at 3 MO 176# weight at 6 MO PO 173 weight weight (12/09/22) 188# Weight in Dec 184 current weight 200 Goal 140# Reason for consult elevated BMI Diet Assmnt Details Pt has has some weight regain, mostly related to evening time snacking grazing. Is in a new relationship is thrown off by this routine change.she also reports getting very frustrated with weight loss, so will give up and eat chocolate. Met with Guy Machado last appt, reports was too strict so she got very frustrated and gave up. she wants to try to figure out a new nutrition plan using shakes and whole foods Problem is eating at night, emotional eating. wants to have breakfast at 6am (likes orgain) Vitamins: celebrate MVI, 1 calcium per day Hydration: gatorade zero, but patient notes she could to better with hydration. We talked about how this may be impacting her hunger at night if she is not getting enough fluid Exercise: She has a stationary bike at home- we talked about how exercise makes her feel Dietary counseling reduction Diagnosis Nutrition problem #1 overweight/obesity As related to (etiology) #1 excess energy intake and physical inactivity As evidenced by (sign/symptom) #1 high BMI Monitoring/Goals Nutrition problem monitoring total energy intake, level of knowledge/skill, total PRO intake, total CHO intake and weight Learning/Education Readiness to learn excellent Stages of change action Most Recent Diabetes Results: No Data to Display [facility] Medical History (Updated 10/19/23 @ 11:20 by Rober Salcido MD) Refused influenza vaccine PTSD (post-traumatic stress disorder) Insomnia PONV (postoperative nausea and vomiting) Gastric ulcer Cholelithiasis Sacroiliitis Spondylosis of lumbar region without myelopathy or radiculopathy Scoliosis Goiter Restless leg syndrome ADHD (attention deficit hyperactivity disorder) Anxiety OCD (obsessive compulsive disorder) Hypertension GERD (gastroesophageal reflux disease) Vitamin D deficiency PCOS (polycystic ovarian syndrome) Body mass index [BMI]40.0-44.9, adult Irritable bowel syndrome with diarrhea Environmental and seasonal allergies Breast cancer screening by mammogram Dyslipidemia Gastritis Oral abscess Morbid obesity Hirsutism Androgenetic alopecia Telogen effluvium Heartburn Degenerative disc disease, lumbar Fibromyalgia Bipolar disorder Rosacea Acquired hypothyroidism Surgical History Hx of bariatric surgery Hx of shoulder surgery S/P laparoscopic sleeve gastrectomy Hx of cholecystectomy Hx of colonoscopy Miscarriage History of nasal surgery History of rotator cuff surgery Family History Father Diabetes mellitus Mother OCD (obsessive compulsive disorder) EITAN (generalized anxiety disorder) HTN (hypertension) Cancer Cervical cancer Family/Other FH: mental illness Maternal Grandmother EITAN (generalized anxiety disorder) Glaucoma Mental health disorder Maternal Grandfather Alzheimer disease Maternal Aunt Hypothyroidism Mental health disorder Paternal Grandmother Unknown family medical history Paternal Grandfather Unknown family medical history Sister Hypothyroidism Paternal Aunt Substance use disorder Maternal Uncle Substance use disorder Social History Household Members Other:: brother Housing: Apartment Are you a primary care worker to a significant other at home: No Do you presently have visiting nurse or other home services: No Alcohol intake: never Patient Tobacco Use Status: Former Tobacco user Quit Date: 2011 Tobacco use type: Cigarette Cigarettes Per Day: 20 Years Smoked: 3 e-Cigarette/Vaping Use: Never Used service: No Current occupational status: disabled Cognitive needs: No Hearing needs: No Vision needs: No Assessment & Plan Assessment & Plan (1) Obesity (BMI 30-39.9): Code(s): E66.9 - Obesity, unspecified Plan nutrition follow up 12/19 at 1pm Patient Instructions: 6am 2 eggs 9am oranges or other fruit 12pm shake - 2 scoops powder with almond milk 3pm shakes 2 scoops powder 6pm 3-4oz protein and vegetables 8pm canadian yogurt Telehealth Telehealth Location of provider rendering services: practice address Location of patient: address on file Patient Identification confirmed using: Name, : Yes Telehealth method: video Patient verbally consented to treatment: Yes Patient verbally consented to billing insurance company: Yes Patient informed of any privacy concerns related to visit: Yes Minutes spent on Phone/Video with Pt.: 30 Coding Level of Care Code Nutr Indiv Subseq (77032) Diagnoses Obesity (BMI 30-39.9) E66.9 Time Spent (min) 30
== END 2023-10-25 14:54 | disposition home or self-care (01) ==
LOC: HO.HBS 13:28
PROVIDERS: PCP Internal Medicine; Visit Provider Dietitian, Registered
DX: E66.9 Obesity, unspecified (principal)

== ENCOUNTER → 2023-11-22 20:21 | Outpatient (BNVA) | payer OTHER, SELFPAY | PROVIDERS: PCP Internal Medicine; Visit Provider Counselor Mental Health ==

== ENCOUNTER → 2023-11-22 20:21 | Outpatient (BNVA) | payer OTHER, SELFPAY | PROVIDERS: PCP Internal Medicine; Visit Provider Counselor Mental Health ==

== ENCOUNTER 2023-12-06 10:48 | Outpatient (AMB) | payer OTHER, SELFPAY ==
--- NOTE | 2023-12-06 10:50 | MHC.OFFVIS ---
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 Community Liaison Required: No Accompanied by: Self / Same As Patient Allergies cat dander [CAT DANDER] Allergy (Mild, Verified 12/06/23 10:58) EYES- TEAR, ITCHY, face swells dog dander [DOG DANDER] Allergy (Mild, Verified 12/06/23 10:58) EYES- TEAR, ITCHY, hives duloxetine [From CYMBALTA] Adverse Reaction (Intermediate, Verified 12/06/23 10:58) VAGINAL BLEEDING HPI HPI Comments History of Present Illness Details Ms. Sebastian, 43yoF returns for follow-up of multiple joint pain. Her last visit was 09/2023. She continues with complaints of pain in the lower back. This seems to be more on the left side with radiation to the left buttock and thigh. Symptoms are worse at night and after prolonged sitting. They seem to get better towards the end of the day. In the past she was prescribed a short-term course of Toradol in the ER and that seemed to help but symptoms returned. She is thought to have fibromyalgia and does take pregabalin 75 mg b.i.d., occasional acetaminophen, p.r.n. cyclobenzaprine, Abilify, and vilazodone. She has never had inflammatory bowel symptoms or inflammatory eye symptoms. She receives lidocaine injection from pain management and is has an upcoming appointment. She does report relief as her last injection. [facility] Medical History (Updated 12/06/23 @ 11:51 by YOHANA Retana) Bilateral knee pain Sacroiliac pain Positive DANIELE (antinuclear antibody) Refused influenza vaccine PTSD (post-traumatic stress disorder) Insomnia PONV (postoperative nausea and vomiting) Gastric ulcer Cholelithiasis Sacroiliitis Spondylosis of lumbar region without myelopathy or radiculopathy Scoliosis Goiter Restless leg syndrome ADHD (attention deficit hyperactivity disorder) Anxiety OCD (obsessive compulsive disorder) Hypertension GERD (gastroesophageal reflux disease) Vitamin D deficiency PCOS (polycystic ovarian syndrome) Body mass index [BMI]40.0-44.9, adult Irritable bowel syndrome with diarrhea Environmental and seasonal allergies Breast cancer screening by mammogram Dyslipidemia Gastritis Oral abscess Morbid obesity Hirsutism Androgenetic alopecia Telogen effluvium Heartburn Degenerative disc disease, lumbar Fibromyalgia Bipolar disorder Rosacea Acquired hypothyroidism Surgical History Hx of bariatric surgery Hx of shoulder surgery S/P laparoscopic sleeve gastrectomy Hx of cholecystectomy Hx of colonoscopy Miscarriage History of nasal surgery History of rotator cuff surgery Family History Father Diabetes mellitus Mother OCD (obsessive compulsive disorder) EITAN (generalized anxiety disorder) HTN (hypertension) Cancer Cervical cancer Family/Other FH: mental illness Maternal Grandmother EITAN (generalized anxiety disorder) Glaucoma Mental health disorder Maternal Grandfather Alzheimer disease Maternal Aunt Hypothyroidism Mental health disorder Paternal Grandmother Unknown family medical history Paternal Grandfather Unknown family medical history Sister Hypothyroidism Paternal Aunt Substance use disorder Maternal Uncle Substance use disorder Social History Household Members Other:: brother Housing: Apartment Are you a primary urgent care to a significant other at home: No Do you presently have visiting nurse or other home services: No Alcohol intake: never Patient Tobacco Use Status: Former Tobacco user Quit Date: 2011 Tobacco use type: Cigarette Cigarettes Per Day: 20 Years Smoked: 3 e-Cigarette/Vaping Use: Never Used service: No Current occupational status: disabled Cognitive needs: No Hearing needs: No Vision needs: No Review of Systems Const All systems reviewed & are unremarkable except as noted in HPI and below Physical Exam Vital Signs: Last Vital Signs Temp 97 F 12/06/23 10:59 Pulse 74 12/06/23 10:59 BP 110/84 12/06/23 10:59 Pulse Ox 99 12/06/23 10:59 Oxygen Delivery Method Room Air 12/06/23 10:59 BMI result Body Mass Index 37.3 APPEARANCE: Patient in no acute distress, groomed, nourished EYES no redness, pupils equal and reactive to light, eyelids normal EARS: External ear normall. EXTREMITIES: No edema, no calf tenderness, normal peripheral pulses. NEURO: Oriented and alert x3. No focal weakness. Reflexes symmetric. Gait normal. SKIN: No inflammatory or neoplastic lesions. Normal color and turgor JOINT EXAM: ?? Cervical Spine: Full range of motion without pain; no tenderness. Thoracic Spine:?No tenderness on palpation. Lumbar Spine: Alignment normal.? Full range of motion with mild pain at 60 degrees of flexion. Slight lumbar muscle tenderness. Hands: Normal pain-free range of motion with slight tenderness across the base of the thumbs and in the PIP joints but no triggering, swelling, increased warmth or erythema. Wrists: Normal pain-free range of motion without tenderness, swelling, increased warmth or erythema. Elbows: Mild pain at the extremes of normal flexion or extension with some slight dorsal tenderness but no swelling, increased warmth or erythema. Shoulders: LEFT:? ? Full range of motion without pain. No tenderness, weakness, swelling, increased warmth or erythema. ? RIGHT:? Full range of motion without pain. No tenderness, weakness, swelling, increased warmth or erythema. Hips:? Full range of motion without pain. Hip bursa: No tenderness. Knees:?? Normal pain-free range of motion with slight patellofemoral crepitus and some mild medial compartment tenderness but no effusion, soft tissue swelling, increased warmth or erythema.? Ankles:? Normal pain-free range of motion without tenderness, swelling, increased warmth or erythema. Feet:? Normal pain-free range of motion without tenderness, swelling, increased warmth or erythema. Tender points: mild tenderness to digital palpation at the occiput, trapezius, second rib, lateral epicondyle, knees, greater trochanter and gluteal areas bilaterally. Results Reviewed Results Reviewed: 12/08/2022 EXAMINATION: XR SACROILIAC JOINTS CLINICAL INFORMATION: M79.18 - Myalgia, other site COMPARISON: Bilateral hips 10/29/2020, lumbar spine 10/20/2015. TECHNIQUE: 4 views of the sacroiliac joints FINDINGS: The SI joints appear normal. No joint narrowing or subchondral sclerosis or erosive changes. No ankylosis. The hip joints are unremarkable. There is some mineralization adjacent to the posterior superior left acetabulum similar to 2014. IMPRESSION: Normal sacroiliac joints. 10/29/2020 EXAMINATION: XR HIP, LEFT XR HIP, RIGHT CLINICAL INFORMATION: Fibromyalgia. Pain. COMPARISON: None TECHNIQUE: Right hip, 2 views Left hip, 2 views FINDINGS: Left hip: The femoral head is well-positioned within the intact acetabulum. The hip joint space is maintained. Two small smoothly marginated ossicles are noted at the superolateral margin of the acetabulum. No evidence of a degenerative or inflammatory arthropathy. No femoral fracture or osteonecrosis. No soft tissue swelling. Right hip: The femoral head is well-positioned within the intact acetabulum. The hip joint space is normal. No evidence of a degenerative or inflammatory arthropathy. No femoral fracture or osteonecrosis. Soft tissues are unremarkable. IMPRESSION: No significant radiographic findings at either hip. No specific source of pain is detected. 10/2018 EXAMINATION: XR KNEE, RIGHT XR KNEE, LEFT CLINICAL INFORMATION: Osteoarthritis of knees. COMPARISON: None TECHNIQUE: AP, lateral, tunnel, and sunrise views of each knee. FINDINGS: RIGHT KNEE: Bones and soft tissues are normal. No fracture or joint effusion. Alignment is anatomic. Joint spaces are well maintained. No abnormal soft tissue calcification. LEFT KNEE: Bones and soft tissues are normal. No fracture or joint effusion. Alignment is anatomic. Joint spaces are well maintained. No abnormal soft tissue calcification. IMPRESSION: Normal knees. 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: Code(s): M47.817 - Spondylosis without myelopathy or radiculopathy, lumbosacral region (2) Sacroiliac pain: Code(s): M53.3 - Sacrococcygeal disorders, not elsewhere classified (3) Positive DANIELE (antinuclear antibody): Code(s): R76.8 - Other specified abnormal immunological findings in serum (4) Bilateral knee pain: Code(s): M25.561 - Pain in right knee; M25.562 - Pain in left knee Qualifiers: Chronicity: chronic Qualified Code(s): M25.561 - Pain in right knee; M25.562 - Pain in left knee; G89.29 - Other chronic pain Plan #SI Pain/Spondylosis: Patient has some return of left buttock and low back pain. This had been helped previously with sacroiliac joint injections, was preceded by previous episodes similar to this since her 30s, has improved with physical activity and also has improved with NSAIDs. So many of these characteristics of her pain suggest spondyloarthritis or sacroiliitis rather than just mechanical back pain and fibromyalgia. There is some evidence certainly for fibromyalgia in her case but given the inflammatory symptoms I think it be reasonable that we look for sacroiliitis with pelvic CT scan looking at the edema around the SI joints. The MRI was denied by her insurance. She continues with meloxicam 15 mg daily. She is aware that the there is some increased risk of GI side effects since she has had some gastric surgery. She does seem to tolerate the nabumetone but denies taking it that regularly. It may be beneficial to try patient on 1 month of TNF therapy and assess for improvement in SI joint to help determine if this is a SpondyloArthritis. #Bilateral Knee Pain: She also has chronic knee pain, and reports being told she has OA but prior imaging does not support this. She does have crepitus in the knees. She can continue with meloxicam. #+DANIELE:Reviewing her history, found labs with +DANIELE in 202o. I will evaluate further with DEV, [id number] given SA pain and history of eczema. I will also evaluate further with ESR/CRP I spent 35 minutes reviewing chart and past images, evaluating patient and documenting. Return for follow-up in 1 month Orders: Orders Erythrocyte Sedimentation Rate Today M46.1 - Sacroiliitis, not elsewhere classified, R76.8 - Other specified abnormal immunological findings in serum Cyclic Citrullinated Peptide Today M46.1 - Sacroiliitis, not elsewhere classified, R76.8 - Other specified abnormal immunological findings in serum Rheumatoid Factor Today M46.1 - Sacroiliitis, not elsewhere classified, R76.8 - Other specified abnormal immunological findings in serum Complete Blood Count Auto Diff Today M46.1 - Sacroiliitis, not elsewhere classified, R76.8 - Other specified abnormal immunological findings in serum HLA B27 Today M46.1 - Sacroiliitis, not elsewhere classified, R76.8 - Other specified abnormal immunological findings in serum C Reactive Protein Today M46.1 - Sacroiliitis, not elsewhere classified, R76.8 - Other specified abnormal immunological findings in serum DANIELE Reflex Titer and Pattern Today M46.1 - Sacroiliitis, not elsewhere classified, R76.8 - Other specified abnormal immunological findings in serum Anti Extractable Nuclear Ag Today M46.1 - Sacroiliitis, not elsewhere classified, R76.8 - Other specified abnormal immunological findings in serum Comprehensive Met. 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
[2023-12-06 10:59] VITALS: BP 110/84; PULSE 74; TEMP 36.1; O2SAT 99; BMI 37.3
== END 2023-12-06 11:18 | disposition home or self-care (01) ==
PROVIDERS: PCP Internal Medicine; Visit Provider Nurse Practitioner Family
DX: M47.817 Spondylosis without myelopathy or radiculopathy, lumbosacral region (principal); M53.3 Sacrococcygeal disorders, not elsewhere classified; R76.8 Other specified abnormal immunological findings in serum; M25.561 Pain in right knee; M25.562 Pain in left knee; G89.29 Other chronic pain
CPT/HCPCS: 99214

== ENCOUNTER 2023-12-06 10:48 | Outpatient (REF) | payer OTHER, SELFPAY ==
[2023-12-06 12:09] LABS: MANUAL DIFF FLAG NO
[2023-12-06 12:24] LABS: Basophils Absolute Auto 0.2 X10*3/uL (0.0-0.2); Basophils Percent Auto 1.6 % (0-2); Eosinophils Absolute Auto 0.1 X10*3/uL (0.0-0.4); Eosinophils Percent Auto 1.4 % (0-4); Hematocrit 40.2 % (37.0-47.0); Imm Gran Abs Auto 0.04 X10*3/uL (0.00-0.03); Imm Gran Pct Auto 0.4 % (0.0-0.4); Lymphocytes Absolute Auto 2.3 X10*3/uL (1.2-4.9); Lymphocytes Percent Auto 23.4 % (20-40); Mean Corpuscular HGB Conc 32.3 g/dl (31.0-35.0); Mean Corpuscular Hemoglobin 31.1 pg (27.0-33.0); Mean Corpuscular Volume 96.2 fL (80.0-98.0); Monocytes Absolute Auto 0.7 X10*3/uL (0.1-1.2); Monocytes Percent Auto 7.2 % (2-11); Neutrophils Absolute Auto 6.5 x10*3/uL (2.0-8.3); Platelet Count 282 X10*3/uL (160-400); Red Blood Count 4.18 X10*6/uL (4.20-5.50); Red Cell Distribution Width 12.2 % (11.0-16.0); White Blood Count 9.9 X10*3/uL (4.8-10.8)
[2023-12-06 12:46] LABS: Rheumatoid Factor < 13.0 IU/mL (<15.0)
[2023-12-06 12:48] LABS: Alanine Aminotransferase 24 U/L (0-31); Albumin Level 4.2 g/dL (3.5-5.0); Alkaline Phosphatase 64 U/L (39-117); Anion Gap 10 (12-20); Aspartate Amino Transferase 24 U/L (5-31); Bilirubin Total 0.3 mg/dL (0.0-1.0); Blood Urea Nitrogen 23 mg/dL (9-16); C Reactive Protein 0.34 mg/dL (< or = 0.50); Calcium 10.2 mg/dL (8.4-10.2); Carbon Dioxide 31 mmol/L (22-29); Chloride 102 mmol/L (96-108); Estimated Glomerular Filt Rate 59; Glucose Random 93 mg/dL (60-115); Potassium 4.8 mmol/L (3.3-5.1); Sodium 138 mmol/L (135-145); Total Protein 7.4 g/dL (6.5-8.0)
[2023-12-06 13:01] LABS: Erythrocyte Sedimentation Rate 16 MM/HR (0-20)
[2023-12-07 13:13] LABS: SM/Ribonucleoprotein Ab <1.0 NEG AI (<1.0 NEG); Smith Protein <1.0 NEG AI (<1.0 NEG)
[2023-12-08 21:44] LABS: Cyclic Citrullinated Peptide <16 UNITS
[2023-12-11 15:37] LABS: Anti Nuclear Antibody Screen POSITIVE (NEGATIVE)
[2023-12-11 16:14] LABS: HLA B27 Negative (Negative)
== END 2023-12-06 10:49 | disposition home or self-care (01) ==
LOC: HO.LAB 10:48
PROVIDERS: Absent Provider Physician Assistant Surgical; PCP Internal Medicine; Visit Provider Nurse Practitioner Family
DX: M46.1 Sacroiliitis, not elsewhere classified (principal); R76.8 Other specified abnormal immunological findings in serum; M25.50 Pain in unspecified joint; M47.817 Spondylosis without myelopathy or radiculopathy, lumbosacral region; M53.3 Sacrococcygeal disorders, not elsewhere classified; M25.561 Pain in right knee; M25.562 Pain in left knee; G89.29 Other chronic pain
CPT/HCPCS: 36415; 80053; 85025; 85652; 86038; 86039; 86140; 86200; 86235; 86431; 86812; 99212

== ENCOUNTER 2023-12-07 09:58 | Outpatient (REF) | payer OTHER, SELFPAY ==
[2023-12-07 10:26] LABS: MANUAL DIFF FLAG NO
[2023-12-07 11:02] LABS: Basophils Absolute Auto 0.1 X10*3/uL (0.0-0.2); Basophils Percent Auto 1.6 % (0-2); Eosinophils Absolute Auto 0.2 X10*3/uL (0.0-0.4); Eosinophils Percent Auto 2.1 % (0-4); Hematocrit 39.7 % (37.0-47.0); Hemoglobin 13.1 g/dl (12.0-16.0); Imm Gran Abs Auto 0.02 X10*3/uL (0.00-0.03); Imm Gran Pct Auto 0.3 % (0.0-0.4); Lymphocytes Absolute Auto 2.1 X10*3/uL (1.2-4.9); Lymphocytes Percent Auto 27.1 % (20-40); Mean Corpuscular Hemoglobin 31.4 pg (27.0-33.0); Mean Corpuscular Volume 95.2 fL (80.0-98.0); Monocytes Absolute Auto 0.6 X10*3/uL (0.1-1.2); Neutrophils Absolute Auto 4.6 x10*3/uL (2.0-8.3); Neutrophils Percent Auto 60.9 % (45-73); Platelet Count 276 X10*3/uL (160-400); Red Blood Count 4.17 X10*6/uL (4.20-5.50); Red Cell Distribution Width 12.2 % (11.0-16.0); White Blood Count 7.6 X10*3/uL (4.8-10.8)
[2023-12-07 11:11] LABS: Estimated Average Glucose 100 mg/dL; Hemoglobin A1c % 5.1 % (<6.0)
[2023-12-07 11:31] LABS: Anion Gap 12 (12-20); Blood Urea Nitrogen 22 mg/dL (9-16); C Reactive Protein 0.35 mg/dL (< or = 0.50); Calcium 9.7 mg/dL (8.4-10.2); Carbon Dioxide 30 mmol/L (22-29); Chloride 103 mmol/L (96-108); Cholesterol 222 mg/dL (<200); Estimated Glomerular Filt Rate > 60; Glucose Random 93 mg/dL (60-115); HDL Cholesterol 68 mg/dL (>40); Iron 97 mcg/dL (30-160); LDL Cholesterol Calculated 143 mg/dL (<100); Percent Iron Saturation 33 % (15-50); Potassium 4.4 mmol/L (3.3-5.1); Sodium 141 mmol/L (135-145); Total Iron Binding Capacity 292 mcg/dL (228-428); Triglycerides 59 mg/dL (<150); Unsaturated Iron Binding 195 ug/dL
[2023-12-07 11:52] LABS: Ferritin 56 ng/mL (10-250); Insulin 4 uU/mL (2-29); TSH reflex Free T4 0.87 uIU/mL (0.32-4.0); Vitamin D 25-OH Total 37.3 ng/mL (>30)
[2023-12-07 12:03] LABS: Folate 11.8 ng/mL (> or = 4.0); Vitamin B12 566 pg/mL (200-900)
[2023-12-10 15:58] LABS: Zinc 88 mcg/dL (60-130)
[2023-12-12 04:39] LABS: Vitamin A 67 mcg/dL (38-98)
[2023-12-12 14:32] LABS: Vitamin B1 182 nmol/L (8-30)
== END 2023-12-07 09:59 | disposition home or self-care (01) ==
LOC: HO.LAB 09:58
PROVIDERS: PCP Internal Medicine; Visit Provider Physician Assistant Surgical
DX: E66.9 Obesity, unspecified (principal); E51.9 Thiamine deficiency, unspecified; E55.9 Vitamin D deficiency, unspecified; E78.5 Hyperlipidemia, unspecified; E03.9 Hypothyroidism, unspecified; I10 Essential (primary) hypertension
CPT/HCPCS: 36415; 80048; 80061; 82306; 82607; 82728; 82746; 83036; 83525; 83540; 84425; 84443; 84590; 84630; 85025; 86140

== ENCOUNTER 2023-12-19 13:19 | Outpatient (AMB) | payer OTHER, SELFPAY ==
--- NOTE | 2023-12-19 12:46 | A.OFFVIS_ITS ---
Intake VS Expanded 12/19/23 15:00 Height 5 ft 3 in Weight 213 lb BMI 37.7 Intake Visit Reasons: VIDEO PO LSG 02/06/22 Allergies cat dander [CAT DANDER] Allergy (Mild, Verified 12/06/23 10:58) EYES- TEAR, ITCHY, face swells dog dander [DOG DANDER] Allergy (Mild, Verified 12/06/23 10:58) EYES- TEAR, ITCHY, hives duloxetine [From CYMBALTA] Adverse Reaction (Intermediate, Verified 12/06/23 10:58) VAGINAL BLEEDING HPI Nutrition Presentation Details Pt declined the use of a clinical medical transcriptionist. Pt speaks fluent [place] LSG with Dr. Easley 02/16/22 Preop weight (02/11/2022) 205# weight at 3 MO 176# weight at 6 MO PO 173 weight weight (12/09/22) 188# Weight in Dec 184 last weight 200# current 213# Goal 140# Reason for consult elevated BMI Diet Assmnt Details has been going through medication changes for mental health. Has a prescriber , is seeing them next week . Hopeful to find medication to help with mood and sleep. Pt has has some weight regain, mostly related to evening time snacking grazing.Is feeing defeated and overwhelmed. Problem is eating at night, emotional eating. wants to have breakfast at 6am (likes orgain) . She identifies that she needs more protein in her diet and wants to include an 08:00 protein shake to supplement. Vitamins: celebrate MVI, 1 calcium per day plus taking - noted recent B1 lab value. June 2023 - B1 was 9 , now 6 months later 182. Patient does not want to repeat labs, she feels very overwhelmed with other life stressors at this time. Hydration: gatorade zero, but patient notes she could to better with hydration. We talked about how this may be impacting her hunger at night if she is not getting enough fluid Exercise: She has a stationary bike at home- we talked about how exercise makes her feel. Right now is not sleeping well and feels too tired to exercise Dietary counseling reduction Nutrition Needs Calculation Weight 213 lb Estimated protein needs (gm/day) 90 WWD-Zelakln-Jr.Jeor Equation Height 5 ft 3 in Weight 213 lb Resting Metabolic Rate 1597.67 Calculated Activity Level Sedentary (900-1400 weight loss) Calories Needed to Maintain Weight 1917.20 Diagnosis Nutrition problem #1 overweight/obesity As related to (etiology) #1 excess energy intake and physical inactivity As evidenced by (sign/symptom) #1 high BMI Monitoring/Goals Nutrition problem monitoring total energy intake, level of knowledge/skill, total PRO intake, total CHO intake and weight Learning/Education Readiness to learn excellent Stages of change action Most Recent Diabetes Results: Cholesterol 222 mg/dL (<200) H 12/07/23 HDL Cholesterol 68 mg/dL (>40) 12/07/23 Triglycerides 59 mg/dL (<150) 12/07/23 Creatinine 1.01 mg/dL (0.5-1.4) 12/07/23 Blood Urea Nitrogen 22 mg/dL (9-16) H 12/07/23 Sodium 141 mmol/L (135-145) 12/07/23 Potassium 4.4 mmol/L (3.3-5.1) 12/07/23 Chloride 103 mmol/L (96-108) 12/07/23 Carbon Dioxide 30 mmol/L (22-29) H 12/07/23 Calcium 9.7 mg/dL (8.4-10.2) 12/07/23 AST 24 U/L (5-31) 12/06/23 ALT 24 U/L (0-31) 12/06/23 Total Protein 7.4 g/dL (6.5-8.0) 12/06/23 Albumin 4.2 g/dL (3.5-5.0) 12/06/23 [facility] Medical History (Updated 12/06/23 @ 11:51 by [facility]) Bilateral knee pain Sacroiliac pain Positive DANIELE (antinuclear antibody) Refused influenza vaccine PTSD (post-traumatic stress disorder) Insomnia PONV (postoperative nausea and vomiting) Gastric ulcer Cholelithiasis Sacroiliitis Spondylosis of lumbar region without myelopathy or radiculopathy Scoliosis Goiter Restless leg syndrome ADHD (attention deficit hyperactivity disorder) Anxiety OCD (obsessive compulsive disorder) Hypertension GERD (gastroesophageal reflux disease) Vitamin D deficiency PCOS (polycystic ovarian syndrome) Body mass index [BMI]40.0-44.9, adult Irritable bowel syndrome with diarrhea Environmental and seasonal allergies Breast cancer screening by mammogram Dyslipidemia Gastritis Oral abscess Morbid obesity Hirsutism Androgenetic alopecia Telogen effluvium Heartburn Degenerative disc disease, lumbar Fibromyalgia Bipolar disorder Rosacea Acquired hypothyroidism Surgical History Hx of bariatric surgery Hx of shoulder surgery S/P laparoscopic sleeve gastrectomy Hx of cholecystectomy Hx of colonoscopy Miscarriage History of nasal surgery History of rotator cuff surgery Family History Father Diabetes mellitus Mother OCD (obsessive compulsive disorder) EITAN (generalized anxiety disorder) HTN (hypertension) Cancer Cervical cancer Family/Other FH: mental illness Maternal Grandmother EITAN (generalized anxiety disorder) Glaucoma Mental health disorder Maternal Grandfather Alzheimer disease Maternal Aunt Hypothyroidism Mental health disorder Paternal Grandmother Unknown family medical history Paternal Grandfather Unknown family medical history Sister Hypothyroidism Paternal Aunt Substance use disorder Maternal Uncle Substance use disorder Social History Household Members Other:: brother Housing: Apartment Are you a primary skin care specialist to a significant other at home: No Do you presently have visiting nurse or other home services: No Alcohol intake: never Patient Tobacco Use Status: Former Tobacco user Quit Date: 2011 Tobacco use type: Cigarette Cigarettes Per Day: 20 Years Smoked: 3 e-Cigarette/Vaping Use: Never Used service: No Current occupational status: disabled Cognitive needs: No Hearing needs: No Vision needs: No Assessment & Plan Assessment & Plan (1) Obesity (BMI 30-39.9): Code(s): E66.9 - Obesity, unspecified Plan Nutrition follow-up in 3 months on 03/19 at 1pm Patient Instructions: begin exercise as a form of self care and start 1 day per week. second goal was 8am protein shake. Telehealth Telehealth Location of provider rendering services: practice address Location of patient: address on file Patient Identification confirmed using: Name, : Yes Telehealth method: video Patient verbally consented to treatment: Yes Patient verbally consented to billing insurance company: Yes Patient informed of any privacy concerns related to visit: Yes Minutes spent on Phone/Video with Pt.: 30 Coding Level of Care Code Nutr Indiv Subseq ([id number]) Diagnoses Obesity (BMI 30-39.9) E66.9 Time Spent (min) 30
[2023-12-19 15:00] VITALS: BMI 37.7
== END 2023-12-19 13:28 | disposition home or self-care (01) ==
LOC: HO.HBS 13:19
PROVIDERS: PCP Internal Medicine; Visit Provider Dietitian, Registered
DX: E66.9 Obesity, unspecified (principal)

== ENCOUNTER → 2023-12-19 13:19 | Outpatient (BNVA) | payer OTHER, SELFPAY | PROVIDERS: PCP Internal Medicine; Visit Provider Dietitian, Registered | DX: E66.9 Obesity, unspecified (principal); Z68.37 Body mass index [BMI] 37.0-37.9, adult; Z98.84 Bariatric surgery status; Z71.3 Dietary counseling and surveillance | CPT/HCPCS: 97803 ==

== ENCOUNTER 2023-12-20 17:00 | Outpatient (AMB) | payer OTHER, SELFPAY ==
--- NOTE | 2024-06-19 11:22 | A.OFFWM_ITS ---
Intake Intake Visit Reasons: group therapy Allergies cat dander [CAT DANDER] Allergy (Mild, Verified 05/24/24 09:29) EYES- TEAR, ITCHY, face swells dog dander [DOG DANDER] Allergy (Mild, Verified 05/24/24 09:29) EYES- TEAR, ITCHY, hives duloxetine [From CYMBALTA] Adverse Reaction (Intermediate, Verified 05/24/24 09:29) VAGINAL BLEEDING PFSH Medical History (Updated 06/12/24 @ 16:11 by Jaz Bello) Bilateral knee pain Sacroiliac pain Positive DANIELE (antinuclear antibody) Refused influenza vaccine PTSD (post-traumatic stress disorder) Insomnia PONV (postoperative nausea and vomiting) Gastric ulcer Cholelithiasis Sacroiliitis Spondylosis of lumbar region without myelopathy or radiculopathy Scoliosis Goiter Restless leg syndrome ADHD (attention deficit hyperactivity disorder) Anxiety OCD (obsessive compulsive disorder) Hypertension GERD (gastroesophageal reflux disease) Vitamin D deficiency PCOS (polycystic ovarian syndrome) Body mass index [BMI]40.0-44.9, adult Irritable bowel syndrome with diarrhea Environmental and seasonal allergies Breast cancer screening by mammogram Dyslipidemia Gastritis Morbid obesity Hirsutism Telogen effluvium Heartburn Degenerative disc disease, lumbar Fibromyalgia Bipolar disorder Rosacea Acquired hypothyroidism Surgical History Hx of bariatric surgery Hx of shoulder surgery S/P laparoscopic sleeve gastrectomy Hx of cholecystectomy Hx of colonoscopy Miscarriage History of nasal surgery History of rotator cuff surgery Family History Father Diabetes mellitus Mother OCD (obsessive compulsive disorder) EITAN (generalized anxiety disorder) HTN (hypertension) Cancer Cervical cancer Family/Other FH: mental illness Maternal Grandmother EITAN (generalized anxiety disorder) Glaucoma Mental health disorder Maternal Grandfather Alzheimer disease Maternal Aunt Hypothyroidism Mental health disorder Paternal Grandmother Unknown family medical history Paternal Grandfather Unknown family medical history Sister Hypothyroidism Paternal Aunt Substance use disorder Maternal Uncle Substance use disorder Social History Household Members Other:: brother Housing: Apartment Are you a primary acute care registered nurse to a significant other at home: No Do you presently have visiting nurse or other home services: No Alcohol intake: never Patient Tobacco Use Status: Former Tobacco user Tobacco use type: Cigarette Cigarettes Per Day: 20 Years Smoked: 3 e-Cigarette/Vaping Use: Never Used service: No Current occupational status: disabled Cognitive needs: No Hearing needs: No Vision needs: Yes Behavioral Health Assessment Weight Management Therapy Therapy Notes Details Group therapy session. We discussed the emotional eating cycle, negative thoughts and feelings associated with that. Used worksheet to help gain awareness on how our bodies feels versus reaching for food immediately. Jaz was engaged, supportive, and shared appropriately. She reported examples from her life and struggles. Assessment & Plan Assessment & Plan (1) Anxiety: Code(s): F41.9 - Anxiety disorder, unspecified (2) ADHD (attention deficit hyperactivity disorder), combined type: Code(s): F90.2 - Attention-deficit hyperactivity disorder, combined type Plan Patient is adjusting to recent [facility] her boyfriend. She has been sleeping more and feeling sadness/grief. She was encouraged to reach out and make an appt with therapist at [facility] as this is her last appt with this television writer. She has done extensive mental health work over the past few years including EMDR. Coding Level of Care Code Grp Psych ([id number]) Diagnoses Anxiety F41.9 ADHD (attention deficit hyperactivity disorder), combined type F90.2 Time Spent (min) 60
== END 2024-06-19 11:24 | disposition home or self-care (01) ==
PROVIDERS: PCP Internal Medicine; Visit Provider Counselor Mental Health
DX: F41.9 Anxiety disorder, unspecified (principal); F90.2 Attention-deficit hyperactivity disorder, combined type
CPT/HCPCS: 99499

== ENCOUNTER → 2023-12-20 17:00 | Outpatient (BNVA) | payer OTHER, SELFPAY | PROVIDERS: PCP Internal Medicine; Visit Provider Counselor Mental Health | DX: F41.9 Anxiety disorder, unspecified (principal); F90.2 Attention-deficit hyperactivity disorder, combined type ==

== ENCOUNTER → 2023-12-20 19:58 | Outpatient (BNVA) | payer OTHER, SELFPAY | PROVIDERS: PCP Internal Medicine; Visit Provider Counselor Mental Health ==

== ENCOUNTER 2023-12-29 12:23 | Outpatient (AMB) | payer OTHER, SELFPAY ==
--- NOTE | 2023-12-29 12:29 | MHC.OFFVIS ---
Intake Vital Signs 12/29/23 12:30 Height 5 ft 3 in Weight 211 lb 3.245 oz BMI 37.4 BP 110/66 Blood Pressure Location Rt brachial Position Sitting Pulse 101 H Pulse Source Pulse Oximeter Temp 96.7 F L Temp Source Skin Pulse Oximetry (%) 98 Intake Visit Reasons: FM Intake Note: Patient last seen 12/06/23 by Juvenal, presents today for fibromyalgia follow up and test results. Test Director Required: No Accompanied by: Self / Same As Patient Allergies cat dander [CAT DANDER] Allergy (Mild, Verified 12/29/23 12:35) EYES- TEAR, ITCHY, face swells dog dander [DOG DANDER] Allergy (Mild, Verified 12/29/23 12:35) EYES- TEAR, ITCHY, hives duloxetine [From CYMBALTA] Adverse Reaction (Intermediate, Verified 12/29/23 12:35) VAGINAL BLEEDING HPI HPI Comments History of Present Illness Details Ms. Sebastian 43yoF returns for follow-up of multiple joint pain. She continues with complaints of pain in the lower back. Had recent corticosteroid injection to SI joint . Patient states this help. She has backpain since her early 30s and does not remember an injury. She does have scoliosis and family hx. Prior Visit: Ms. Sebastian 43yoF returns for follow-up of multiple joint pain. Her last visit was 09/2023. She continues with complaints of pain in the lower back. This seems to be more on the left side with radiation to the left buttock and thigh. Symptoms are worse at night and after prolonged sitting. They seem to get better towards the end of the day. In the past she was prescribed a short-term course of Toradol in the ER and that seemed to help but symptoms returned. She is thought to have fibromyalgia and does take pregabalin 75 mg b.i.d., occasional acetaminophen, p.r.n. cyclobenzaprine, Abilify, and vilazodone. She has never had inflammatory bowel symptoms or inflammatory eye symptoms. She receives lidocaine injection from pain management and is has an upcoming appointment. She does report relief as her last injection. Had recent corticosteroid injection to lower . Patient states this help [facility] Medical History (Updated 12/29/23 @ 13:11 by Marija Juvenal, [employer]) Long-term use of immunosuppressant medication Non-radiographic axial spondyloarthritis Bilateral knee pain Sacroiliac pain Positive DANIELE (antinuclear antibody) Refused influenza vaccine PTSD (post-traumatic stress disorder) Insomnia PONV (postoperative nausea and vomiting) Gastric ulcer Cholelithiasis Sacroiliitis Spondylosis of lumbar region without myelopathy or radiculopathy Scoliosis Goiter Restless leg syndrome ADHD (attention deficit hyperactivity disorder) Anxiety OCD (obsessive compulsive disorder) Hypertension GERD (gastroesophageal reflux disease) Vitamin D deficiency PCOS (polycystic ovarian syndrome) Body mass index [BMI]40.0-44.9, adult Irritable bowel syndrome with diarrhea Environmental and seasonal allergies Breast cancer screening by mammogram Dyslipidemia Gastritis Oral abscess Morbid obesity Hirsutism Androgenetic alopecia Telogen effluvium Heartburn Degenerative disc disease, lumbar Fibromyalgia Bipolar disorder Rosacea Acquired hypothyroidism Surgical History Hx of bariatric surgery Hx of shoulder surgery S/P laparoscopic sleeve gastrectomy Hx of cholecystectomy Hx of colonoscopy Miscarriage History of nasal surgery History of rotator cuff surgery Family History Father Diabetes mellitus Mother OCD (obsessive compulsive disorder) EITAN (generalized anxiety disorder) HTN (hypertension) Cancer Cervical cancer Family/Other FH: mental illness Maternal Grandmother EITAN (generalized anxiety disorder) Glaucoma Mental health disorder Maternal Grandfather Alzheimer disease Maternal Aunt Hypothyroidism Mental health disorder Paternal Grandmother Unknown family medical history Paternal Grandfather Unknown family medical history Sister Hypothyroidism Paternal Aunt Substance use disorder Maternal Uncle Substance use disorder Social History Household Members Other:: brother Housing: Apartment Are you a primary pharmacy customer care specialist to a significant other at home: No Do you presently have visiting nurse or other home services: No Alcohol intake: never Patient Tobacco Use Status: Former Tobacco user Quit Date: 2011 Tobacco use type: Cigarette Cigarettes Per Day: 20 Years Smoked: 3 e-Cigarette/Vaping Use: Never Used service: No Current occupational status: disabled Cognitive needs: No Hearing needs: No Vision needs: No Review of Systems Const All systems reviewed & are unremarkable except as noted in HPI and below Physical Exam Vital Signs: Last Vital Signs Temp 96.7 F L 12/29/23 12:30 Pulse 101 H 12/29/23 12:30 BP 110/66 12/29/23 12:30 Pulse Ox 98 12/29/23 12:30 BMI result Body Mass Index 37.4 APPEARANCE: Patient in no acute distress, groomed, nourished EYES no redness, eyelids normal EXTREMITIES: No edema, no calf tenderness, normal peripheral pulses. NEURO: Oriented and alert x3. No focal weakness. Reflexes symmetric. Gait normal. SKIN: No inflammatory or neoplastic lesions. Normal color and turgor JOINT EXAM: ?? Cervical Spine: Full range of motion without pain; no tenderness. Thoracic Spine:?No tenderness on palpation. Lumbar Spine: Alignment normal.? Full range of motion with mild pain at 60 degrees of flexion. lumbar muscle tenderness. Si joint tenderness Hands: Normal pain-free range of motion with slight tenderness across the base of the thumbs and in the PIP joints but no triggering, swelling, increased warmth or erythema. Wrists: Normal pain-free range of motion without tenderness, swelling, increased warmth or erythema. Elbows: Mild pain at the extremes of normal flexion or extension with some slight dorsal tenderness but no swelling, increased warmth or erythema. Shoulders: LEFT:? ? Full range of motion without pain. No tenderness, weakness, swelling, increased warmth or erythema. ? RIGHT:? Full range of motion without pain. No tenderness, weakness, swelling, increased warmth or erythema. Hips:? Full range of motion without pain. Hip bursa: No tenderness. Knees:?? Normal pain-free range of motion with slight patellofemoral crepitus and some mild medial compartment tenderness but no effusion, soft tissue swelling, increased warmth or erythema.? Ankles:? Normal pain-free range of motion without tenderness, swelling, increased warmth or erythema. Feet:? Normal pain-free range of motion without tenderness, swelling, increased warmth or erythema. Tender points: mild tenderness to digital palpation at the occiput, trapezius, second rib, lateral epicondyle, knees, greater trochanter and gluteal areas bilaterally. Assessment & Plan Assessment & Plan (1) Sacroiliac pain: Code(s): M53.3 - Sacrococcygeal disorders, not elsewhere classified (2) Positive DANIELE (antinuclear antibody): Code(s): R76.8 - Other specified abnormal immunological findings in serum (3) Bilateral knee pain: Code(s): M25.561 - Pain in right knee; M25.562 - Pain in left knee Qualifiers: Chronicity: chronic Qualified Code(s): M25.561 - Pain in right knee; M25.562 - Pain in left knee; G89.29 - Other chronic pain (4) Non-radiographic axial spondyloarthritis: Code(s): M45.A0 - Non-radiographic axial spondyloarthritis of unspecified sites in spine (5) Long-term use of immunosuppressant medication: Code(s): Z79.60 - intermission coordinator (current) use of unspecified immunomodulators and immunosuppressants Plan #SI Pain/Spondylosis/nrAxSpA: Patient has some left buttock and low back pain. This had been helped previously with sacroiliac joint injections, was preceded by previous episodes similar to this since her 30s, has improved with physical activity and also has improved with NSAIDs. So many of these characteristics of her pain suggest spondyloarthritis or sacroiliitis rather than just mechanical back pain and fibromyalgia. There is some evidence certainly for fibromyalgia in her case but given the inflammatory symptoms I think it be reasonable to start treatment for nrAxSpA. She will continue with meloxicam 15 mg daily. We will see how she does on Leflunomide 20mg QD. If not therapeutic, It may be beneficial to try patient on 1 month of TNF therapy and assess for improvement in SI joint to help determine if this is a SpondyloArthritis. #Bilateral Knee Pain: She also has chronic knee pain, and reports being told she has OA but prior imaging does not support this. She does have crepitus in the knees. She can continue with meloxicam. #Care Home Use:We discussed the possible side effects of Leflunomide to include but not limited N/V/D. We will monitor CBC, LFTs. Patient knows to hold medication for fevers, infection and non-healing wounds or cancer dx. #+DANIELE:Reviewing her history, found labs with +DANIELE in 2019. Recent additionally serology was negative for DEV, HLAB27 and ESR/CRP I spent 30 minutes reviewing chart, discussion treatment options, educating patient on disease process and documenting. Return for follow-up in 2 month Orders: Orders Erythrocyte Sedimentation Rate 8 Weeks M45.A0 - Non-radiographic axial spondyloarthritis of unspecified sites in spine Alanine Aminotransferase 8 Weeks M45.A0 - Non-radiographic axial spondyloarthritis of unspecified sites in spine, Z79.899 - Other fpc (current) drug therapy Aspartate Amino Transferase 8 Weeks M45.A0 - Non-radiographic axial spondyloarthritis of unspecified sites in spine, Z79.899 - Other extermination inspector (current) drug therapy Complete Blood Count Auto Diff 8 Weeks M45.A0 - Non-radiographic axial spondyloarthritis of unspecified sites in spine, Z79.899 - Other extermination inspector (current) drug therapy Creatinine 8 Weeks M45.A0 - Non-radiographic axial spondyloarthritis of unspecified sites in spine, Z79.899 - Other extermination inspector (current) drug therapy Medications: New leflunomide 20 mg PO DAILY 90 tabs 0RF M45.A0 - Non-radiographic axial spondyloarthritis of unspecified sites in spine, M53.3 - Sacrococcygeal disorders, not elsewhere classified Coding Level of Care Code Est Pt Level 4 (11774) Diagnoses Sacroiliac pain M53.3 Positive DANIELE (antinuclear antibody) R76.8 Chronic pain of both knees M25.561; M25.562; G89.29 Chronicity: chronic Non-radiographic axial spondyloarthritis M45.A0 Long-term use of immunosuppressant medication Z79.60
[2023-12-29 12:30] VITALS: BP 110/66; PULSE 101; TEMP 35.9; O2SAT 98; BMI 37.4
== END 2023-12-29 13:03 | disposition home or self-care (01) ==
PROVIDERS: PCP Internal Medicine; Visit Provider Nurse Practitioner Family
DX: M53.3 Sacrococcygeal disorders, not elsewhere classified (principal); R76.8 Other specified abnormal immunological findings in serum; M25.561 Pain in right knee; M25.562 Pain in left knee; G89.29 Other chronic pain; M45.A0 Non-radiographic axial spondyloarthritis of unspecified sites in spine; Z79.60 Long term (current) use of unspecified immunomodulators and immunosuppressants
CPT/HCPCS: 99214

== ENCOUNTER → 2023-12-29 12:23 | Outpatient (BNVA) | payer OTHER, SELFPAY | PROVIDERS: PCP Internal Medicine; Visit Provider Nurse Practitioner Family | DX: M53.3 Sacrococcygeal disorders, not elsewhere classified (principal); M25.561 Pain in right knee; M25.562 Pain in left knee; M45.A0 Non-radiographic axial spondyloarthritis of unspecified sites in spine; R76.8 Other specified abnormal immunological findings in serum; G89.29 Other chronic pain; Z79.60 Long term (current) use of unspecified immunomodulators and immunosuppressants | CPT/HCPCS: 99212 ==

== ENCOUNTER 2024-01-01 10:56 | Outpatient (AMB) | payer OTHER, SELFPAY ==
--- NOTE | 2024-01-06 11:14 | MHC.WMTHER ---
Intake Intake Visit Reasons: VIDEO PO LSG 02/06/22 Allergies cat dander [CAT DANDER] Allergy (Mild, Verified 12/29/23 12:35) EYES- TEAR, ITCHY, face swells dog dander [DOG DANDER] Allergy (Mild, Verified 12/29/23 12:35) EYES- TEAR, ITCHY, hives duloxetine [From CYMBALTA] Adverse Reaction (Intermediate, Verified 12/29/23 12:35) VAGINAL BLEEDING PFSH Medical History (Updated 12/29/23 @ 13:11 by Marija Sanford [facility]) Long-term use of immunosuppressant medication Non-radiographic axial spondyloarthritis Bilateral knee pain Sacroiliac pain Positive DANIELE (antinuclear antibody) Refused influenza vaccine PTSD (post-traumatic stress disorder) Insomnia PONV (postoperative nausea and vomiting) Gastric ulcer Cholelithiasis Sacroiliitis Spondylosis of lumbar region without myelopathy or radiculopathy Scoliosis Goiter Restless leg syndrome ADHD (attention deficit hyperactivity disorder) Anxiety OCD (obsessive compulsive disorder) Hypertension GERD (gastroesophageal reflux disease) Vitamin D deficiency PCOS (polycystic ovarian syndrome) Body mass index [BMI]40.0-44.9, adult Irritable bowel syndrome with diarrhea Environmental and seasonal allergies Breast cancer screening by mammogram Dyslipidemia Gastritis Oral abscess Morbid obesity Hirsutism Androgenetic alopecia Telogen effluvium Heartburn Degenerative disc disease, lumbar Fibromyalgia Bipolar disorder Rosacea Acquired hypothyroidism Surgical History Hx of bariatric surgery Hx of shoulder surgery S/P laparoscopic sleeve gastrectomy Hx of cholecystectomy Hx of colonoscopy Miscarriage History of nasal surgery History of rotator cuff surgery Family History Father Diabetes mellitus Mother OCD (obsessive compulsive disorder) EITAN (generalized anxiety disorder) HTN (hypertension) Cancer Cervical cancer Family/Other FH: mental illness Maternal Grandmother EITAN (generalized anxiety disorder) Glaucoma Mental health disorder Maternal Grandfather Alzheimer disease Maternal Aunt Hypothyroidism Mental health disorder Paternal Grandmother Unknown family medical history Paternal Grandfather Unknown family medical history Sister Hypothyroidism Paternal Aunt Substance use disorder Maternal Uncle Substance use disorder Social History Household Members Other:: brother Housing: Apartment Are you a primary care mgr to a significant other at home: No Do you presently have visiting nurse or other home services: No Alcohol intake: never Patient Tobacco Use Status: Former Tobacco user Quit Date: 2011 Tobacco use type: Cigarette Cigarettes Per Day: 20 Years Smoked: 3 e-Cigarette/Vaping Use: Never Used service: No Current occupational status: disabled Cognitive needs: No Hearing needs: No Vision needs: No Behavioral Health Assessment Weight Management Therapy Therapy Notes Details Pt has not been seen individually for some time. She has gained significant weight over the past several months since being in a relationship and traveling. She believes some of it might be due to a medication she was taking and has since stopped. Discussed her goals, and needs, urgency of her being in good health. Pt shared that she has come to terms but not having any children. PT is post operative weight loss surgery and looking for group therapy support. She reported struggling at night with snacking and eating, relating the feeling of being full with safety. Pt reported that she often lays in bed with her tablet and then will snack. We discussed the differences between actual hunger and emotional eating. Pt works out at night and may be in need of more protein as she identified being physically hungry after her workout. Presenting Concerns Referral Source provider Reason for referral post weight loss surgery seeking group therapy Precipitating Event weight loss surgery/emotional eating. Living Situation Current Living Situation Rent At risk of losing current housing? No Satisfied with current living situation? Yes Comments Pt lives with her brother who she raised from due to age difference. Pt also has a dog. Assessment & Plan Assessment & Plan (1) ADHD (attention deficit hyperactivity disorder), combined type: Code(s): F90.2 - Attention-deficit hyperactivity disorder, combined type (2) Status post sleeve gastrectomy: Code(s): Z90.3 - Acquired absence of stomach [part of] (3) Posttraumatic stress disorder: Code(s): F43.10 - Post-traumatic stress disorder, unspecified Plan Patient struggles due to past complex trauma from childhood hunger and poverty, attachment issues with her mother, seperated from her father, some addiction issues. She would benefit from ongoing EMDR as well as post operative therapy group to address rel. with food. Telehealth Telehealth Location of provider rendering services: practice address Location of patient: address on file Patient Identification confirmed using: Name, : Yes Telehealth method: video Patient verbally consented to treatment: Yes Patient verbally consented to billing insurance company: Yes Patient informed of any privacy concerns related to visit: Yes Minutes spent on Phone/Video with Pt.: 45 Coding Level of Care Code Tele Psytx 45 mins (32155) Diagnoses ADHD (attention deficit hyperactivity disorder), combined type F90.2 Status post sleeve gastrectomy Z90.3 Posttraumatic stress disorder F43.10 Time Spent (min) 45
== END 2024-01-01 11:17 | disposition home or self-care (01) ==
LOC: HO.HBST 10:56
PROVIDERS: PCP Internal Medicine; Visit Provider Counselor Mental Health
DX: F90.2 Attention-deficit hyperactivity disorder, combined type (principal); Z90.3 Acquired absence of stomach [part of]; F43.10 Post-traumatic stress disorder, unspecified
CPT/HCPCS: 90834

== ENCOUNTER → 2024-01-01 10:56 | Outpatient (BNVA) | payer OTHER, SELFPAY | PROVIDERS: PCP Internal Medicine; Visit Provider Counselor Mental Health ==

== ENCOUNTER 2024-01-09 11:00 | Outpatient (AMB) | payer OTHER, SELFPAY ==
--- NOTE | 2024-01-09 11:48 | MHC.WMTHER ---
Intake Intake Visit Reasons: VIDEO PO LSG 02/06/22 Allergies cat dander [CAT DANDER] Allergy (Mild, Verified 12/29/23 12:35) EYES- TEAR, ITCHY, face swells dog dander [DOG DANDER] Allergy (Mild, Verified 12/29/23 12:35) EYES- TEAR, ITCHY, hives duloxetine [From CYMBALTA] Adverse Reaction (Intermediate, Verified 12/29/23 12:35) VAGINAL BLEEDING PFSH Medical History (Updated 12/29/23 @ 13:11 by Marija Sanford [facility]) Long-term use of immunosuppressant medication Non-radiographic axial spondyloarthritis Bilateral knee pain Sacroiliac pain Positive DANIELE (antinuclear antibody) Refused influenza vaccine PTSD (post-traumatic stress disorder) Insomnia PONV (postoperative nausea and vomiting) Gastric ulcer Cholelithiasis Sacroiliitis Spondylosis of lumbar region without myelopathy or radiculopathy Scoliosis Goiter Restless leg syndrome ADHD (attention deficit hyperactivity disorder) Anxiety OCD (obsessive compulsive disorder) Hypertension GERD (gastroesophageal reflux disease) Vitamin D deficiency PCOS (polycystic ovarian syndrome) Body mass index [BMI]40.0-44.9, adult Irritable bowel syndrome with diarrhea Environmental and seasonal allergies Breast cancer screening by mammogram Dyslipidemia Gastritis Oral abscess Morbid obesity Hirsutism Androgenetic alopecia Telogen effluvium Heartburn Degenerative disc disease, lumbar Fibromyalgia Bipolar disorder Rosacea Acquired hypothyroidism Surgical History Hx of bariatric surgery Hx of shoulder surgery S/P laparoscopic sleeve gastrectomy Hx of cholecystectomy Hx of colonoscopy Miscarriage History of nasal surgery History of rotator cuff surgery Family History Father Diabetes mellitus Mother OCD (obsessive compulsive disorder) EITAN (generalized anxiety disorder) HTN (hypertension) Cancer Cervical cancer Family/Other FH: mental illness Maternal Grandmother EITAN (generalized anxiety disorder) Glaucoma Mental health disorder Maternal Grandfather Alzheimer disease Maternal Aunt Hypothyroidism Mental health disorder Paternal Grandmother Unknown family medical history Paternal Grandfather Unknown family medical history Sister Hypothyroidism Paternal Aunt Substance use disorder Maternal Uncle Substance use disorder Social History Household Members Other:: brother Housing: Apartment Are you a primary child care center administrator to a significant other at home: No Do you presently have visiting nurse or other home services: No Alcohol intake: never Patient Tobacco Use Status: Former Tobacco user Quit Date: 2011 Tobacco use type: Cigarette Cigarettes Per Day: 20 Years Smoked: 3 e-Cigarette/Vaping Use: Never Used service: No Current occupational status: disabled Cognitive needs: No Hearing needs: No Vision needs: No Behavioral Health Assessment Weight Management Therapy Therapy Notes Details Pt discussed triggers and figuring out her new normal in a relationship that is healthy. Processed how she felt about her partner telling her that his goal is for her to feel calm and relaxed; that being a foreign concept to her. struggle with her weight and health, has made appt with her providers for additional help. Would like help around fear of bugs, mainly cockroaches. Assessment & Plan Assessment & Plan (1) ADHD (attention deficit hyperactivity disorder), combined type: Code(s): F90.2 - Attention-deficit hyperactivity disorder, combined type (2) Status post sleeve gastrectomy: Code(s): Z90.3 - Acquired absence of stomach [part of] (3) Posttraumatic stress disorder: Code(s): F43.10 - Post-traumatic stress disorder, unspecified Plan Patient struggles due to past complex trauma from childhood hunger and poverty, attachment issues with her mother, seperated from her father, some addiction issues. She would benefit from ongoing EMDR as well as post operative therapy group to address rel. with food. Telehealth Telehealth Location of provider rendering services: other Location of patient: other Patient Identification confirmed using: Name, : Yes Telehealth method: video Patient verbally consented to treatment: Yes Patient verbally consented to billing insurance company: Yes Patient informed of any privacy concerns related to visit: Yes Minutes spent on Phone/Video with Pt.: 40 Coding Level of Care Code Tele Psytx 45 mins (61396) Diagnoses ADHD (attention deficit hyperactivity disorder), combined type F90.2 Status post sleeve gastrectomy Z90.3 Posttraumatic stress disorder F43.10 Time Spent (min) 40
== END 2024-01-09 11:24 | disposition home or self-care (01) ==
LOC: HO.HBST 11:00
PROVIDERS: PCP Internal Medicine; Visit Provider Counselor Mental Health
DX: F90.2 Attention-deficit hyperactivity disorder, combined type (principal); Z90.3 Acquired absence of stomach [part of]; F43.10 Post-traumatic stress disorder, unspecified
CPT/HCPCS: 90834

== ENCOUNTER → 2024-01-09 11:00 | Outpatient (BNVA) | payer OTHER, SELFPAY | PROVIDERS: PCP Internal Medicine; Visit Provider Counselor Mental Health ==

== ENCOUNTER 2024-01-24 15:54 | Outpatient (AMB) | payer OTHER, SELFPAY ==
--- NOTE | 2024-01-27 10:44 | MHC.WMTHER ---
Intake Intake Visit Reasons: (OV) PO LSG 02/06/22 Allergies cat dander [CAT DANDER] Allergy (Mild, Verified 12/29/23 12:35) EYES- TEAR, ITCHY, face swells dog dander [DOG DANDER] Allergy (Mild, Verified 12/29/23 12:35) EYES- TEAR, ITCHY, hives duloxetine [From CYMBALTA] Adverse Reaction (Intermediate, Verified 12/29/23 12:35) VAGINAL BLEEDING PFSH Medical History (Updated 12/29/23 @ 13:11 by Marija Sanford [facility]) Long-term use of immunosuppressant medication Non-radiographic axial spondyloarthritis Bilateral knee pain Sacroiliac pain Positive DANIELE (antinuclear antibody) Refused influenza vaccine PTSD (post-traumatic stress disorder) Insomnia PONV (postoperative nausea and vomiting) Gastric ulcer Cholelithiasis Sacroiliitis Spondylosis of lumbar region without myelopathy or radiculopathy Scoliosis Goiter Restless leg syndrome ADHD (attention deficit hyperactivity disorder) Anxiety OCD (obsessive compulsive disorder) Hypertension GERD (gastroesophageal reflux disease) Vitamin D deficiency PCOS (polycystic ovarian syndrome) Body mass index [BMI]40.0-44.9, adult Irritable bowel syndrome with diarrhea Environmental and seasonal allergies Breast cancer screening by mammogram Dyslipidemia Gastritis Oral abscess Morbid obesity Hirsutism Androgenetic alopecia Telogen effluvium Heartburn Degenerative disc disease, lumbar Fibromyalgia Bipolar disorder Rosacea Acquired hypothyroidism Surgical History Hx of bariatric surgery Hx of shoulder surgery S/P laparoscopic sleeve gastrectomy Hx of cholecystectomy Hx of colonoscopy Miscarriage History of nasal surgery History of rotator cuff surgery Family History Father Diabetes mellitus Mother OCD (obsessive compulsive disorder) EITAN (generalized anxiety disorder) HTN (hypertension) Cancer Cervical cancer Family/Other FH: mental illness Maternal Grandmother EITAN (generalized anxiety disorder) Glaucoma Mental health disorder Maternal Grandfather Alzheimer disease Maternal Aunt Hypothyroidism Mental health disorder Paternal Grandmother Unknown family medical history Paternal Grandfather Unknown family medical history Sister Hypothyroidism Paternal Aunt Substance use disorder Maternal Uncle Substance use disorder Social History Household Members Other:: brother Housing: Apartment Are you a primary foster care case manager to a significant other at home: No Do you presently have visiting nurse or other home services: No Alcohol intake: never Patient Tobacco Use Status: Former Tobacco user Quit Date: 2011 Tobacco use type: Cigarette Cigarettes Per Day: 20 Years Smoked: 3 e-Cigarette/Vaping Use: Never Used service: No Current occupational status: disabled Cognitive needs: No Hearing needs: No Vision needs: No Behavioral Health Assessment Weight Management Therapy Therapy Notes Details Discussed rel. being away in [place], [place] there in the future, [place]. She talked about how she feels safe and happy in this rel. has had to get used to that. Also establishing boundaries for when she needs space. Improvement in mood, continues to focus on taking care of herself, partner also on board with some changes. Assessment & Plan Assessment & Plan (1) ADHD (attention deficit hyperactivity disorder), combined type: Code(s): F90.2 - Attention-deficit hyperactivity disorder, combined type (2) Status post sleeve gastrectomy: Code(s): Z90.3 - Acquired absence of stomach [part of] (3) Posttraumatic stress disorder: Code(s): F43.10 - Post-traumatic stress disorder, unspecified Plan Patient struggles due to past complex trauma from childhood hunger and poverty, attachment issues with her mother, from her father, some addiction issues. Completed multiple sessions of EMDR with some improvement in symptoms. Patient had been experiencing weight gain post bariatric surgery, especially since new relationship that she is in. First time in 5 years she is in a stable and committed rel. Will continue with therapy group. Coding Level of Care Code Psytx 45 mins (70855) Diagnoses ADHD (attention deficit hyperactivity disorder), combined type F90.2 Status post sleeve gastrectomy Z90.3 Posttraumatic stress disorder F43.10 Time Spent (min) 45
== END 2024-01-27 10:44 | disposition home or self-care (01) ==
PROVIDERS: PCP Internal Medicine; Visit Provider Counselor Mental Health
DX: F90.2 Attention-deficit hyperactivity disorder, combined type (principal); Z90.3 Acquired absence of stomach [part of]; F43.10 Post-traumatic stress disorder, unspecified
CPT/HCPCS: 90834

== ENCOUNTER → 2024-01-24 15:54 | Outpatient (BNVA) | payer OTHER, SELFPAY | PROVIDERS: PCP Internal Medicine; Visit Provider Counselor Mental Health | DX: F43.10 Post-traumatic stress disorder, unspecified (principal); F90.2 Attention-deficit hyperactivity disorder, combined type; Z90.3 Acquired absence of stomach [part of] | CPT/HCPCS: 90853 ==

== ENCOUNTER 2024-01-24 20:25 | Outpatient (AMB) | payer OTHER, SELFPAY ==
--- NOTE | 2024-01-27 11:57 | MHC.WMTHER ---
Intake Intake Visit Reasons: group therapy Allergies cat dander [CAT DANDER] Allergy (Mild, Verified 12/29/23 12:35) EYES- TEAR, ITCHY, face swells dog dander [DOG DANDER] Allergy (Mild, Verified 12/29/23 12:35) EYES- TEAR, ITCHY, hives duloxetine [From CYMBALTA] Adverse Reaction (Intermediate, Verified 12/29/23 12:35) VAGINAL BLEEDING PFSH Medical History (Updated 12/29/23 @ 13:11 by Marija Sanford [facility]) Long-term use of immunosuppressant medication Non-radiographic axial spondyloarthritis Bilateral knee pain Sacroiliac pain Positive DANIELE (antinuclear antibody) Refused influenza vaccine PTSD (post-traumatic stress disorder) Insomnia PONV (postoperative nausea and vomiting) Gastric ulcer Cholelithiasis Sacroiliitis Spondylosis of lumbar region without myelopathy or radiculopathy Scoliosis Goiter Restless leg syndrome ADHD (attention deficit hyperactivity disorder) Anxiety OCD (obsessive compulsive disorder) Hypertension GERD (gastroesophageal reflux disease) Vitamin D deficiency PCOS (polycystic ovarian syndrome) Body mass index [BMI]40.0-44.9, adult Irritable bowel syndrome with diarrhea Environmental and seasonal allergies Breast cancer screening by mammogram Dyslipidemia Gastritis Oral abscess Morbid obesity Hirsutism Androgenetic alopecia Telogen effluvium Heartburn Degenerative disc disease, lumbar Fibromyalgia Bipolar disorder Rosacea Acquired hypothyroidism Surgical History Hx of bariatric surgery Hx of shoulder surgery S/P laparoscopic sleeve gastrectomy Hx of cholecystectomy Hx of colonoscopy Miscarriage History of nasal surgery History of rotator cuff surgery Family History Father Diabetes mellitus Mother OCD (obsessive compulsive disorder) EITAN (generalized anxiety disorder) HTN (hypertension) Cancer Cervical cancer Family/Other FH: mental illness Maternal Grandmother EITAN (generalized anxiety disorder) Glaucoma Mental health disorder Maternal Grandfather Alzheimer disease Maternal Aunt Hypothyroidism Mental health disorder Paternal Grandmother Unknown family medical history Paternal Grandfather Unknown family medical history Sister Hypothyroidism Paternal Aunt Substance use disorder Maternal Uncle Substance use disorder Social History Household Members Other:: brother Housing: Apartment Are you a primary clinical manager home care to a significant other at home: No Do you presently have visiting nurse or other home services: No Alcohol intake: never Patient Tobacco Use Status: Former Tobacco user Quit Date: 2011 Tobacco use type: Cigarette Cigarettes Per Day: 20 Years Smoked: 3 e-Cigarette/Vaping Use: Never Used service: No Current occupational status: disabled Cognitive needs: No Hearing needs: No Vision needs: No Behavioral Health Assessment Weight Management Therapy Therapy Notes Details Group therapy, open forum for patients to discuss needs, strengths and provide support. Patient shared about trying to reset on her journey due to not reach some of her goals. Group topic was about keeping desire and drive alive while in the process. Assessment & Plan Assessment & Plan (1) ADHD (attention deficit hyperactivity disorder), combined type: Code(s): F90.2 - Attention-deficit hyperactivity disorder, combined type (2) Status post sleeve gastrectomy: Code(s): Z90.3 - Acquired absence of stomach [part of] (3) Posttraumatic stress disorder: Code(s): F43.10 - Post-traumatic stress disorder, unspecified Plan Patient struggles due to past complex trauma from childhood hunger and poverty, attachment issues with her mother, from her father, some addiction issues. Completed multiple sessions of EMDR with some improvement in symptoms. Patient had been experiencing weight gain post bariatric surgery, especially since new relationship that she is in. First time in 5 years she is in a stable and committed rel. Will continue with therapy group. Coding Level of Care Code Grp Psych (48844) Diagnoses ADHD (attention deficit hyperactivity disorder), combined type F90.2 Status post sleeve gastrectomy Z90.3 Posttraumatic stress disorder F43.10 Time Spent (min) 60
== END 2024-01-27 11:57 | disposition home or self-care (01) ==
LOC: HO.HBST 20:25
PROVIDERS: PCP Internal Medicine; Visit Provider Counselor Mental Health
DX: F90.2 Attention-deficit hyperactivity disorder, combined type (principal); Z90.3 Acquired absence of stomach [part of]; F43.10 Post-traumatic stress disorder, unspecified

== ENCOUNTER 2024-02-07 17:15 | Outpatient (AMB) | payer OTHER, SELFPAY ==
--- NOTE | 2024-06-19 16:15 | MHC.WMTHER ---
Intake Intake Visit Reasons: group therapy Allergies cat dander [CAT DANDER] Allergy (Mild, Verified 05/24/24 09:29) EYES- TEAR, ITCHY, face swells dog dander [DOG DANDER] Allergy (Mild, Verified 05/24/24 09:29) EYES- TEAR, ITCHY, hives duloxetine [From CYMBALTA] Adverse Reaction (Intermediate, Verified 05/24/24 09:29) VAGINAL BLEEDING PFSH Medical History (Updated 06/12/24 @ 16:11 by Jaz Bello) Bilateral knee pain Sacroiliac pain Positive DANIELE (antinuclear antibody) Refused influenza vaccine PTSD (post-traumatic stress disorder) Insomnia PONV (postoperative nausea and vomiting) Gastric ulcer Cholelithiasis Sacroiliitis Spondylosis of lumbar region without myelopathy or radiculopathy Scoliosis Goiter Restless leg syndrome ADHD (attention deficit hyperactivity disorder) Anxiety OCD (obsessive compulsive disorder) Hypertension GERD (gastroesophageal reflux disease) Vitamin D deficiency PCOS (polycystic ovarian syndrome) Body mass index [BMI]40.0-44.9, adult Irritable bowel syndrome with diarrhea Environmental and seasonal allergies Breast cancer screening by mammogram Dyslipidemia Gastritis Morbid obesity Hirsutism Telogen effluvium Heartburn Degenerative disc disease, lumbar Fibromyalgia Bipolar disorder Rosacea Acquired hypothyroidism Surgical History Hx of bariatric surgery Hx of shoulder surgery S/P laparoscopic sleeve gastrectomy Hx of cholecystectomy Hx of colonoscopy Miscarriage History of nasal surgery History of rotator cuff surgery Family History Father Diabetes mellitus Mother OCD (obsessive compulsive disorder) EITAN (generalized anxiety disorder) HTN (hypertension) Cancer Cervical cancer Family/Other FH: mental illness Maternal Grandmother EITAN (generalized anxiety disorder) Glaucoma Mental health disorder Maternal Grandfather Alzheimer disease Maternal Aunt Hypothyroidism Mental health disorder Paternal Grandmother Unknown family medical history Paternal Grandfather Unknown family medical history Sister Hypothyroidism Paternal Aunt Substance use disorder Maternal Uncle Substance use disorder Social History Household Members Other:: brother Housing: Apartment Are you a primary palliative care physician to a significant other at home: No Do you presently have visiting nurse or other home services: No Alcohol intake: never Patient Tobacco Use Status: Former Tobacco user Tobacco use type: Cigarette Cigarettes Per Day: 20 Years Smoked: 3 e-Cigarette/Vaping Use: Never Used service: No Current occupational status: disabled Cognitive needs: No Hearing needs: No Vision needs: Yes Behavioral Health Assessment Weight Management Therapy Therapy Notes Details Group therapy session, participants discussed struggles, improvements, and supported each other. Topic was on mindfulness and anxiety reduction techniques. Pt was engaged and participated appropriately. Assessment & Plan Assessment & Plan (1) ADHD (attention deficit hyperactivity disorder), combined type: Code(s): F90.2 - Attention-deficit hyperactivity disorder, combined type (2) Status post sleeve gastrectomy: Code(s): Z90.3 - Acquired absence of stomach [part of] (3) Posttraumatic stress disorder: Code(s): F43.10 - Post-traumatic stress disorder, unspecified Plan Patient struggles due to past complex trauma from childhood hunger and poverty, attachment issues with her mother, from her father, some addiction issues. Completed multiple sessions of EMDR with some improvement in symptoms. Patient had been experiencing weight gain post bariatric surgery, especially since new relationship that she is in. First time in 5 years she is in a stable and committed rel. Will continue with therapy group and [facility] Coding Level of Care Code Grp Psych (99008) Diagnoses ADHD (attention deficit hyperactivity disorder), combined type F90.2 Status post sleeve gastrectomy Z90.3 Posttraumatic stress disorder F43.10 Time Spent (min) 60
== END 2024-02-07 18:15 | disposition home or self-care (01) ==
PROVIDERS: PCP Internal Medicine; Visit Provider Counselor Mental Health
DX: F90.2 Attention-deficit hyperactivity disorder, combined type (principal); Z90.3 Acquired absence of stomach [part of]; F43.10 Post-traumatic stress disorder, unspecified

== ENCOUNTER → 2024-02-07 20:09 | Outpatient (BNVA) | payer OTHER, SELFPAY | PROVIDERS: PCP Internal Medicine; Visit Provider Counselor Mental Health | DX: F90.2 Attention-deficit hyperactivity disorder, combined type (principal); Z90.3 Acquired absence of stomach [part of]; F43.10 Post-traumatic stress disorder, unspecified | CPT/HCPCS: 90853 ==

== ENCOUNTER 2024-02-09 07:41 | Outpatient (REF) | payer OTHER, SELFPAY ==
[2024-02-09 08:04] LABS: MANUAL DIFF FLAG NO
[2024-02-09 08:55] LABS: Basophils Absolute Auto 0.2 X10*3/uL (0.0-0.2); Basophils Percent Auto 2.2 % (0-2); Eosinophils Absolute Auto 0.2 X10*3/uL (0.0-0.4); Eosinophils Percent Auto 3.1 % (0-4); Hematocrit 41.7 % (37.0-47.0); Hemoglobin 13.7 g/dl (12.0-16.0); Imm Gran Abs Auto 0.02 X10*3/uL (0.00-0.03); Imm Gran Pct Auto 0.3 % (0.0-0.4); Lymphocytes Percent Auto 42.1 % (20-40); Mean Corpuscular HGB Conc 32.9 g/dl (31.0-35.0); Mean Corpuscular Hemoglobin 31.1 pg (27.0-33.0); Mean Corpuscular Volume 94.6 fL (80.0-98.0); Mean Platelet Volume 10.6 fL (9.4-12.3); Monocytes Absolute Auto 0.6 X10*3/uL (0.1-1.2); Monocytes Percent Auto 8.3 % (2-11); Neutrophils Absolute Auto 3.1 x10*3/uL (2.0-8.3); Platelet Count 285 X10*3/uL (160-400); Red Blood Count 4.41 X10*6/uL (4.20-5.50); Red Cell Distribution Width 11.7 % (11.0-16.0); White Blood Count 7.1 X10*3/uL (4.8-10.8)
[2024-02-09 09:00] LABS: Estimated Average Glucose 103 mg/dL; Hemoglobin A1c % 5.2 % (<6.0)
[2024-02-09 09:12] LABS: Alanine Aminotransferase 18 U/L (0-31); Aspartate Amino Transferase 17 U/L (5-31); Estimated Glomerular Filt Rate > 60
[2024-02-09 09:15] LABS: Parathyroid Hormone Intact 70.9 pg/mL (8.7-77.1)
[2024-02-09 09:20] LABS: Alanine Aminotransferase 18 U/L (0-31); Anion Gap 11 (12-20); Aspartate Amino Transferase 17 U/L (5-31); Blood Urea Nitrogen 24 mg/dL (9-16); Calcium 9.5 mg/dL (8.4-10.2); Carbon Dioxide 29 mmol/L (22-29); Chloride 103 mmol/L (96-108); Cholesterol 221 mg/dL (<200); Estimated Glomerular Filt Rate > 60; Glucose Fasting 90 mg/dL (60-99); HDL Cholesterol 59 mg/dL (>40); LDL Cholesterol Calculated 147 mg/dL (<100); Potassium 3.9 mmol/L (3.3-5.1); Sodium 139 mmol/L (135-145); Triglycerides 79 mg/dL (<150)
[2024-02-09 09:34] LABS: Erythrocyte Sedimentation Rate 12 MM/HR (0-20)
[2024-02-09 09:36] LABS: Free T4 (Free Thyroxine) 0.94 ng/dL (0.71-1.85)
[2024-02-14 18:10] LABS: Vitamin B1 12 nmol/L (8-30)
== END 2024-02-09 07:42 | disposition home or self-care (01) ==
LOC: HO.LAB 07:41
PROVIDERS: Nurse Practitioner Family; Physician Assistant Surgical; PCP Internal Medicine; Visit Provider Internal Medicine
DX: Z00.01 Encounter for general adult medical examination with abnormal findings (principal); E28.2 Polycystic ovarian syndrome; E78.5 Hyperlipidemia, unspecified; L68.0 Hirsutism; F31.9 Bipolar disorder, unspecified; E03.9 Hypothyroidism, unspecified; F90.9 Attention-deficit hyperactivity disorder, unspecified type; E51.9 Thiamine deficiency, unspecified; M45.A0 Non-radiographic axial spondyloarthritis of unspecified sites in spine; I10 Essential (primary) hypertension; E55.9 Vitamin D deficiency, unspecified; E66.9 Obesity, unspecified; Z71.3 Dietary counseling and surveillance; Z98.84 Bariatric surgery status; Z68.37 Body mass index [BMI] 37.0-37.9, adult; Z79.899 Other long term (current) drug therapy
CPT/HCPCS: 36415; 80048; 80061; 82565; 83036; 83970; 84425; 84439; 84443; 84450; 84460; 85025; 85652; 97803

== ENCOUNTER 2024-02-09 11:35 | Outpatient (AMB) | payer OTHER, SELFPAY ==
--- NOTE | 2024-02-09 11:21 | A.OFFVIS_ITS ---
Intake VS Expanded 02/09/24 11:28 Height 5 ft 3 in Weight 213 lb BMI 37.7 Intake Visit Reasons: (TV) PO LSG 02/06/22 Allergies cat dander [CAT DANDER] Allergy (Mild, Verified 12/29/23 12:35) EYES- TEAR, ITCHY, face swells dog dander [DOG DANDER] Allergy (Mild, Verified 12/29/23 12:35) EYES- TEAR, ITCHY, hives duloxetine [From CYMBALTA] Adverse Reaction (Intermediate, Verified 12/29/23 12:35) VAGINAL BLEEDING HPI Nutrition Presentation Details Pt declined the use of a full time staff interpreter. Pt speaks fluent new zealander LSG with Dr. Easley 02/16/22 Preop weight (02/11/2022) 205# weight at 3 MO 176# weight at 6 MO PO 173 weight weight (12/09/22) 188# Weight in Dec 184 last weight 200# current 213# Goal 140# Reason for consult elevated BMI Diet Assmnt Details Pt has been going to [facility] groups and finding them extremely helpful. Reports getting all of this supoprt and working on her trauma, has been really improving her emotional eating issues. Has decreased cravings.. B: 2 eggs , 1 slice 647 bread, 1 sclice of babybell cheese Oranges for snack L: sometimes orgain shake , sometimes skips S: skips this shake D: lately has been having fried food. Explained how she is skipping meals all day , leading her to over eat and make poor food choices. . she feels that when she is too restricted, she ends up really going off track. Vitamins: celebrate MVI, 1 calcium per day plus taking - noted recent B1 lab value. June 2023 - B1 was 9 , n 6 months later 182. Tested today and results pending Hydration: gatorade zero, but patient notes she could to better with hydration. We talked about how this may be impacting her hunger at night if she is not getting enough fluid Exercise: She has a stationary bike at home- we talked about how exercise makes her feel. Right now is not sleeping well and feels too tired to exercise Dietary counseling reduction Nutrition Needs Calculation Weight 213 lb Estimated protein needs (gm/day) 90 LTY-Awhwhzg-En.Jeor Equation Height 5 ft 3 in Weight 213 lb Resting Metabolic Rate 1597.67 Calculated Activity Level Sedentary (900-1400 weight loss) Calories Needed to Maintain Weight 1917.20 Diagnosis Nutrition problem #1 overweight/obesity As related to (etiology) #1 excess energy intake and physical inactivity As evidenced by (sign/symptom) #1 high BMI Monitoring/Goals Nutrition problem monitoring total energy intake, level of knowledge/skill, total PRO intake, total CHO intake and weight Learning/Education Readiness to learn excellent Stages of change action Most Recent Diabetes Results: Cholesterol 221 mg/dL (<200) H 02/09/24 HDL Cholesterol 59 mg/dL (>40) 02/09/24 Triglycerides 79 mg/dL (<150) 02/09/24 Creatinine 0.90 mg/dL (0.5-1.4) 02/09/24 Blood Urea Nitrogen 24 mg/dL (9-16) H 02/09/24 Sodium 139 mmol/L (135-145) 02/09/24 Potassium 3.9 mmol/L (3.3-5.1) 02/09/24 Chloride 103 mmol/L (96-108) 02/09/24 Carbon Dioxide 29 mmol/L (22-29) 02/09/24 Calcium 9.5 mg/dL (8.4-10.2) 02/09/24 AST 17 U/L (5-31) 02/09/24 ALT 18 U/L (0-31) 02/09/24 [facility] Medical History (Updated 12/29/23 @ 13:11 by Marija Sanford [facility]) Long-term use of immunosuppressant medication Non-radiographic axial spondyloarthritis Bilateral knee pain Sacroiliac pain Positive DANIELE (antinuclear antibody) Refused influenza vaccine PTSD (post-traumatic stress disorder) Insomnia PONV (postoperative nausea and vomiting) Gastric ulcer Cholelithiasis Sacroiliitis Spondylosis of lumbar region without myelopathy or radiculopathy Scoliosis Goiter Restless leg syndrome ADHD (attention deficit hyperactivity disorder) Anxiety OCD (obsessive compulsive disorder) Hypertension GERD (gastroesophageal reflux disease) Vitamin D deficiency PCOS (polycystic ovarian syndrome) Body mass index [BMI]40.0-44.9, adult Irritable bowel syndrome with diarrhea Environmental and seasonal allergies Breast cancer screening by mammogram Dyslipidemia Gastritis Oral abscess Morbid obesity Hirsutism Androgenetic alopecia Telogen effluvium Heartburn Degenerative disc disease, lumbar Fibromyalgia Bipolar disorder Rosacea Acquired hypothyroidism Surgical History Hx of bariatric surgery Hx of shoulder surgery S/P laparoscopic sleeve gastrectomy Hx of cholecystectomy Hx of colonoscopy Miscarriage History of nasal surgery History of rotator cuff surgery Family History Father Diabetes mellitus Mother OCD (obsessive compulsive disorder) EITAN (generalized anxiety disorder) HTN (hypertension) Cancer Cervical cancer Family/Other FH: mental illness Maternal Grandmother EITAN (generalized anxiety disorder) Glaucoma Mental health disorder Maternal Grandfather Alzheimer disease Maternal Aunt Hypothyroidism Mental health disorder Paternal Grandmother Unknown family medical history Paternal Grandfather Unknown family medical history Sister Hypothyroidism Paternal Aunt Substance use disorder Maternal Uncle Substance use disorder Social History Household Members Other:: brother Housing: Apartment Are you a primary care team coordinator scheduler to a significant other at home: No Do you presently have visiting nurse or other home services: No Alcohol intake: never Patient Tobacco Use Status: Former Tobacco user Quit Date: 2011 Tobacco use type: Cigarette Cigarettes Per Day: 20 Years Smoked: 3 e-Cigarette/Vaping Use: Never Used service: No Current occupational status: disabled Cognitive needs: No Hearing needs: No Vision needs: No Assessment & Plan Assessment & Plan (1) Obesity (BMI 30-39.9): Code(s): E66.9 - Obesity, unspecified Plan explained how she is under eating during the day, leading to overeating at night. will use shakes, bars, other convenient protein foods during felecia day, and have breakfast and dinner food based meals. B1 pending. she will communicate as needed with office. Telehealth Telehealth Location of provider rendering services: practice address Location of patient: address on file Patient Identification confirmed using: Name, : Yes Telehealth method: voice only Patient verbally consented to treatment: Yes Patient verbally consented to billing insurance company: Yes Patient informed of any privacy concerns related to visit: Yes Minutes spent on Phone/Video with Pt.: 25 Coding Level of Care Code Nutr Indiv Subseq (77082) Diagnoses Obesity (BMI 30-39.9) E66.9 Time Spent (min) 25
[2024-02-09 11:28] VITALS: BMI 37.7
== END 2024-02-09 11:54 | disposition home or self-care (01) ==
LOC: HO.HBS 11:35
PROVIDERS: PCP Internal Medicine; Visit Provider Dietitian, Registered
DX: E66.9 Obesity, unspecified (principal)

== ENCOUNTER 2024-02-14 11:21 | Outpatient (AMB) | payer OTHER, SELFPAY ==
--- NOTE | 2024-02-14 11:26 | MHC.OFFVISWM ---
Intake VS Expanded 02/14/24 11:36 BP 113/75 Blood Pressure Location Rt brachial Blood Pressure Position Sitting Pulse 104 H Pulse Source Pulse Oximeter Temp 96.6 F L Temperature Source Tympanic Pulse Oximetry 97 Oxygen Delivery Method Room Air Height 5 ft 3 in Weight 211 lb 6.4 oz BMI 37.4 Body Fat % 44.1 Body Fat Mass 93.0 Fat Free Mass 118.2 Visceral Fat Rating 11.0 Body Water % 40.0 Body Water Mass 84.4 Muscle Mass/Score 112.2 Basal Metabolic Rate/Score 1,660 Intake Visit Reasons: (OV) PO LSG 02/06/22 Expander Machine Operator Required: No Allergies cat dander [CAT DANDER] Allergy (Mild, Verified 02/14/24 11:31) EYES- TEAR, ITCHY, face swells dog dander [DOG DANDER] Allergy (Mild, Verified 02/14/24 11:31) EYES- TEAR, ITCHY, hives duloxetine [From CYMBALTA] Adverse Reaction (Intermediate, Verified 02/14/24 11:31) VAGINAL BLEEDING Medication List - Last Reconciled 02/14/24 by TYRONE Green acetaminophen ER (Tylenol 8 Hour) 650 mg PO Q12H albuterol sulfate 90 mcg/actuation (Ventolin HFA) 1 - 2 puffs inhalation Q4H PRN alclometasone 0.05% appl topical BID PRN back brace As directed benzoyl peroxide 10% topical calcium carbonate-vitamin D3 250 mg-3.125 mcg (125 unit) 1 tab PO BID cariprazine (Vraylar) 1.5 mg PO DAILY cetirizine 10 mg PO DAILY PRN clindamycin phosphate 1% topical BID clonazepam mg PO dextroamphetamine-amphetamine 25 mg ER (Adderall XR) caps PO fluticasone propionate 50 mcg/actuation 2 sprays intranasal DAILY ivermectin 1% (Soolantra) 1 appl topical DAILY leflunomide 20 mg PO DAILY levothyroxine 50 mcg PO DAILY 30 days meloxicam 15 mg PO DAILY metformin 500 mg PO BID 30 days multivitamin 1 tab PO DAILY pregabalin 75 mg PO BID spironolactone 50 mg PO DAILY vilazodone 40 mg PO DAILY HPI HPI Comments History of Present Illness Details 43-year-old female returns to the office today in follow-up. She is approximately 2 years status post sleeve gastrectomy performed on 02/06/2022. She has been followed by our registered dietitian, Jazmín in the past. Weight today is 211.4 lb with a BMI of 37.4. She states that she has been attending the group meetings with Jaz and has not gained any weight last month. She is enquiring about initiating Ozempic. LSG with Dr. Easley 02/16/22 Preop weight (02/11/2022) 205# weight at 3 MO 176# weight at 6 MO PO 173 weight weight (12/09/22) 188# Weight in Dec 184 last weight 200# current 213# Goal 140# meal plan: 6 am 2 eggs w 1 piece of 647 bread, 4 oz coffee w tsp 11/21 and 11/21 9-10 am 2 oranges noon Orgain shake 2 scoops in 8 oz almond milk 3 pm another shake 6 pm thin slice whole chicken breast not measuring by forks, 5-6 forks veg or 5-6 forks of rice and beans after dinner chips, no longer ice cream or candy or cookies. Drinkin-32 oz water 20 oz gatorade zero Exercise plan: none stationary bike at home just joined [facility] Any post op complications: none FANNY: never DM: never HTN: never Hyperlipidemia: continues GERD:?0-5 scale ??0 = no symptoms ??1 = symptoms noticeable but not bothersome 2 =symptoms bothersome but not daily ? 3 = symptoms bothersome and daily 4 = symptoms affect daily activities 5 = symptoms are incapacitating, unable to do daily activities ? How bad is the heartburn: 0 ? Heartburn while lying down: 0 ? Heartburn when standing up: 0 ? Heartburn after meals: 0 ? Does heartburn change your diet: 0 ? Does heartburn wake you up from sleep: 0 ? Do you have difficulty swallowin ? Do you have pain with swallowin ? If you take medicine for your reflux, does this affect your daily life: 0 Satisfaction with present condition - satisfied or not satisfied: dissatisfied [facility] Medical History Long-term use of immunosuppressant medication Non-radiographic axial spondyloarthritis Bilateral knee pain Sacroiliac pain Positive DANIELE (antinuclear antibody) Refused influenza vaccine PTSD (post-traumatic stress disorder) Insomnia PONV (postoperative nausea and vomiting) Gastric ulcer Cholelithiasis Sacroiliitis Spondylosis of lumbar region without myelopathy or radiculopathy Scoliosis Goiter Restless leg syndrome ADHD (attention deficit hyperactivity disorder) Anxiety OCD (obsessive compulsive disorder) Hypertension GERD (gastroesophageal reflux disease) Vitamin D deficiency PCOS (polycystic ovarian syndrome) Body mass index [BMI]40.0-44.9, adult Irritable bowel syndrome with diarrhea Environmental and seasonal allergies Breast cancer screening by mammogram Dyslipidemia Gastritis Oral abscess Morbid obesity Hirsutism Androgenetic alopecia Telogen effluvium Heartburn Degenerative disc disease, lumbar Fibromyalgia Bipolar disorder Rosacea Acquired hypothyroidism Surgical History Hx of bariatric surgery Hx of shoulder surgery S/P laparoscopic sleeve gastrectomy Hx of cholecystectomy Hx of colonoscopy Miscarriage History of nasal surgery History of rotator cuff surgery Family History Father Diabetes mellitus Mother OCD (obsessive compulsive disorder) EITAN (generalized anxiety disorder) HTN (hypertension) Cancer Cervical cancer Family/Other FH: mental illness Maternal Grandmother EITAN (generalized anxiety disorder) Glaucoma Mental health disorder Maternal Grandfather Alzheimer disease Maternal Aunt Hypothyroidism Mental health disorder Paternal Grandmother Unknown family medical history Paternal Grandfather Unknown family medical history Sister Hypothyroidism Paternal Aunt Substance use disorder Maternal Uncle Substance use disorder Social History Household Members Other:: brother Housing: Apartment Are you a primary medicare specialist to a significant other at home: No Do you presently have visiting nurse or other home services: No Alcohol intake: never Patient Tobacco Use Status: Former Tobacco user Quit Date: 2011 Tobacco use type: Cigarette Cigarettes Per Day: 20 Years Smoked: 3 e-Cigarette/Vaping Use: Never Used service: No Current occupational status: disabled Cognitive needs: No Hearing needs: No Vision needs: No Physical Exam Const General: cooperative and no acute distress Orientation/consciousness: patient oriented x3 Resp Effort & Inspection: normal respiratory effort Auscultation: clear to auscultation bilaterally Cardio Rate: regular rate Rhythm: regular rhythm GI Inspection: Yes normal to inspection and Yes incision (well healed) Palpation (GI): Soft to palpation and no masses Neuro General: patient oriented x3 Assessment & Plan Assessment & Plan (1) S/P laparoscopic sleeve gastrectomy: Code(s): Z98.84 - Bariatric surgery status Plan: Patient continues with obesity. We will change meal plans slightly. 6 am 2 eggs w vegetables, no toast, 4 oz coffee w tsp 11/21 and 11/21 9-10 am 1 orange noon Orgain shake 1.5 scoops in 8 oz almond milk 3 pm another shake 6 pm 7 forks of protein and 7 forks of vegetables, no rice or beans. 730 pm fruit (an apple, 3/4 cut fresh berries, orange, kiwi, pear) Needs to resume exercise plan including daily cardio with a goal of burning 300 calories per day. We will have her return to the office in 6 weeks with a goal of 12 lb weight loss. Coding Level of Care Code Est Pt Level 3 (65020) Diagnoses S/P laparoscopic sleeve gastrectomy Z98.84
[2024-02-14 11:36] VITALS: BP 113/75; PULSE 104; TEMP 35.9; O2SAT 97; BMI 37.4
== END 2024-02-14 12:06 | disposition home or self-care (01) ==
PROVIDERS: PCP Internal Medicine; Visit Provider Physician Assistant Surgical
DX: E66.9 Obesity, unspecified (principal); Z68.37 Body mass index [BMI] 37.0-37.9, adult; Z90.3 Acquired absence of stomach [part of]; Z98.84 Bariatric surgery status
CPT/HCPCS: 99213

== ENCOUNTER → 2024-02-14 11:21 | Outpatient (BNVA) | payer OTHER, SELFPAY | PROVIDERS: PCP Internal Medicine; Visit Provider Physician Assistant Surgical | DX: Z98.84 Bariatric surgery status (principal) | CPT/HCPCS: 99212 ==

== ENCOUNTER 2024-02-27 12:33 | Outpatient (AMB) | payer OTHER, SELFPAY ==
--- NOTE | 2024-02-27 12:51 | MHC.OFFVIS ---
Intake Vital Signs 02/27/24 13:00 Height 5 ft 3 in Weight 214 lb 11.684 oz BMI 38.0 BP 110/80 Blood Pressure Location Rt brachial Position Sitting Pulse 96 Pulse Source Pulse Oximeter Temp 97.2 F Temp Source Skin Pulse Oximetry (%) 97 Oxygen Delivery Method Room Air Intake Visit Reasons: FM/CM Intake Note: Patient last seen 12/29/23 by Juvenal, presents today for follow up and test results. Portfolio Analyst Required: No Accompanied by: Self / Same As Patient Allergies cat dander [CAT DANDER] Allergy (Mild, Verified 02/27/24 13:01) EYES- TEAR, ITCHY, face swells dog dander [DOG DANDER] Allergy (Mild, Verified 02/27/24 13:01) EYES- TEAR, ITCHY, hives duloxetine [From CYMBALTA] Adverse Reaction (Intermediate, Verified 02/27/24 13:01) VAGINAL BLEEDING HPI HPI Comments History of Present Illness Details Ms. Sebastian, 43yoF returns for follow-up of multiple joint pain. She continues with complaints of pain in the lower back and SI. Had recent corticosteroid injection to SI joint . Patient states this help. She has backpain since her early 30s and does not remember an injury. She does have scoliosis and family hx. She has been taking the Leflunomide 20 mg for two months now and have not felt any improvement to her lumbar and SI pain. She has an upcoming appointment to see pain management for a lumbar injection. Prior Visit 12/06/2023 Ms. Sebastian, 43yoF returns for follow-up of multiple joint pain. Her last visit was 09/2023. She continues with complaints of pain in the lower back. This seems to be more on the left side with radiation to the left buttock and thigh. Symptoms are worse at night and after prolonged sitting. They seem to get better towards the end of the day. In the past she was prescribed a short-term course of Toradol in the ER and that seemed to help but symptoms returned. She is thought to have fibromyalgia and does take pregabalin 75 mg b.i.d., occasional acetaminophen, p.r.n. cyclobenzaprine, Abilify, and vilazodone. She has never had inflammatory bowel symptoms or inflammatory eye symptoms. She receives lidocaine injection from pain management and is has an upcoming appointment. She does report relief as her last injection. Had recent corticosteroid injection to lower . Patient states this help [facility] Medical History Long-term use of immunosuppressant medication Non-radiographic axial spondyloarthritis Bilateral knee pain Sacroiliac pain Positive DANIELE (antinuclear antibody) Refused influenza vaccine PTSD (post-traumatic stress disorder) Insomnia PONV (postoperative nausea and vomiting) Gastric ulcer Cholelithiasis Sacroiliitis Spondylosis of lumbar region without myelopathy or radiculopathy Scoliosis Goiter Restless leg syndrome ADHD (attention deficit hyperactivity disorder) Anxiety OCD (obsessive compulsive disorder) Hypertension GERD (gastroesophageal reflux disease) Vitamin D deficiency PCOS (polycystic ovarian syndrome) Body mass index [BMI]40.0-44.9, adult Irritable bowel syndrome with diarrhea Environmental and seasonal allergies Breast cancer screening by mammogram Dyslipidemia Gastritis Oral abscess Morbid obesity Hirsutism Androgenetic alopecia Telogen effluvium Heartburn Degenerative disc disease, lumbar Fibromyalgia Bipolar disorder Rosacea Acquired hypothyroidism Surgical History Hx of bariatric surgery Hx of shoulder surgery S/P laparoscopic sleeve gastrectomy Hx of cholecystectomy Hx of colonoscopy Miscarriage History of nasal surgery History of rotator cuff surgery Family History Father Diabetes mellitus Mother OCD (obsessive compulsive disorder) EITAN (generalized anxiety disorder) HTN (hypertension) Cancer Cervical cancer Family/Other FH: mental illness Maternal Grandmother EITAN (generalized anxiety disorder) Glaucoma Mental health disorder Maternal Grandfather Alzheimer disease Maternal Aunt Hypothyroidism Mental health disorder Paternal Grandmother Unknown family medical history Paternal Grandfather Unknown family medical history Sister Hypothyroidism Paternal Aunt Substance use disorder Maternal Uncle Substance use disorder Social History Household Members Other:: brother Housing: Apartment Are you a primary sub acute care nurse to a significant other at home: No Do you presently have visiting nurse or other home services: No Alcohol intake: never Patient Tobacco Use Status: Former Tobacco user Quit Date: 2011 Tobacco use type: Cigarette Cigarettes Per Day: 20 Years Smoked: 3 e-Cigarette/Vaping Use: Never Used service: No Current occupational status: disabled Cognitive needs: No Hearing needs: No Vision needs: No Review of Systems Const All systems reviewed & are unremarkable except as noted in HPI and below Physical Exam Vital Signs: Last Vital Signs Temp 97.2 F 02/27/24 13:00 Pulse 96 02/27/24 13:00 BP 110/80 02/27/24 13:00 Pulse Ox 97 02/27/24 13:00 Oxygen Delivery Method Room Air 02/27/24 13:00 BMI result Body Mass Index 38.0 APPEARANCE: Patient in no acute distress, groomed, nourished EYES no redness, eyelids normal EXTREMITIES: No edema, no calf tenderness, normal peripheral pulses. NEURO: Oriented and alert x3. No focal weakness. Reflexes symmetric. Gait normal. SKIN: No inflammatory or neoplastic lesions. Normal color and turgor JOINT EXAM: ?? Cervical Spine: Full range of motion without pain; no tenderness. Thoracic Spine:?No tenderness on palpation. Lumbar Spine:levoconvex scoliosis per xray. Full range of motion with mild pain at 60 degrees of flexion. lumbar muscle tenderness. Si joint tenderness Hands: Normal pain-free range of motion with slight tenderness across the base of the thumbs and in the PIP joints but no triggering, swelling, increased warmth or erythema. Wrists: Normal pain-free range of motion without tenderness, swelling, increased warmth or erythema. Elbows: Mild pain at the extremes of normal flexion or extension with some slight dorsal tenderness but no swelling, increased warmth or erythema. Shoulders: LEFT:? ? Full range of motion without pain. No tenderness, weakness, swelling, increased warmth or erythema. ? RIGHT:? Full range of motion without pain. No tenderness, weakness, swelling, increased warmth or erythema. Hips:? Full range of motion without pain. Hip bursa: No tenderness. Knees:?? Normal pain-free range of motion with slight patellofemoral crepitus and some mild medial compartment tenderness but no effusion, soft tissue swelling, increased warmth or erythema.? Ankles:? Normal pain-free range of motion without tenderness, swelling, increased warmth or erythema. Feet:? Normal pain-free range of motion without tenderness, swelling, increased warmth or erythema. Tender points: mild tenderness to digital palpation at the occiput, trapezius, second rib, lateral epicondyle, knees, greater trochanter and gluteal areas bilaterally. Results Reviewed Results Reviewed: 02/09/2024 - CBC grossly normal, ESR 12. Chemistry grossly normal: Creatinine 0.99, AST 17 ALT 18, TSH 1.20 12/07/2023 vitamin-D 37.3, CRP 0.35 Assessment & Plan Assessment & Plan (1) Sacroiliac pain: Code(s): M53.3 - Sacrococcygeal disorders, not elsewhere classified (2) Positive DANIELE (antinuclear antibody): Code(s): R76.8 - Other specified abnormal immunological findings in serum (3) Bilateral knee pain: Code(s): M25.561 - Pain in right knee; M25.562 - Pain in left knee Qualifiers: Chronicity: chronic Qualified Code(s): M25.561 - Pain in right knee; M25.562 - Pain in left knee; G89.29 - Other chronic pain (4) Non-radiographic axial spondyloarthritis: Code(s): M45.A0 - Non-radiographic axial spondyloarthritis of unspecified sites in spine (5) Long-term use of immunosuppressant medication: Code(s): Z79.60 - [facility] (current) use of unspecified immunomodulators and immunosuppressants Plan #SI Pain/Spondylosis/nrAxSpA: Patient has some left buttock and lumbar back pain. This is helped previously with sacroiliac joint injections,. She has had these symptoms since since her 30s, has improved with physical activity and also has improved with NSAIDs. So many of these characteristics of her pain suggest spondyloarthritis or sacroiliitis rather than just mechanical back pain and fibromyalgia. There is some evidence certainly for fibromyalgia in her case. However, given the inflammatory symptoms, we started Leflunomide 20mg QD now x 2 months. She cannot see any improvement at this time. It may be beneficial to try patient on 1 month of TNF therapy and assess for improvement in SI joint to help determine if this is a SpondyloArthritis. We will consider that at next visit, after she has been on Leflunomide for 3 months. I discussed at length with the patient that given her Levoconvex scoliosis, this can be the main reason for her back pain. She will also get a RX for back brace. #Bilateral Knee Pain: She also had chronic knee pain, and reports being told she has OA but prior imaging does not support this. She does have crepitus in the knees. It seems the knee is feeling better today. She can continue with meloxicam. #Survey Methodologist Use:We discussed the possible side effects of Leflunomide to include but not limited N/V/D. She denies any side effects. We will monitor CBC, LFTs. Patient knows to hold medication for fevers, infection and non-healing wounds or cancer dx. #+DANIELE:Reviewing her history, found labs with +DANIELE in 2019. Recent additionally serology was negative for DEV, HLAB27 and ESR/CRP I spent 20 minutes reviewing chart, discussion treatment options, educating patient on disease process and documenting. Return for follow-up in 1 month Medications: Refilled back brace As directed 1 ea 0RF Low Back Pain - Need Stability M45.A0 - Non-radiographic axial spondyloarthritis of unspecified sites in spine, M47.817 - Spondylosis without myelopathy or radiculopathy, lumbosacral region Coding Level of Care Code Est Pt Level 3 (15013) Diagnoses Sacroiliac pain M53.3 Positive DANIELE (antinuclear antibody) R76.8 Chronic pain of both knees M25.561; M25.562; G89.29 Chronicity: chronic Non-radiographic axial spondyloarthritis M45.A0 Long-term use of immunosuppressant medication Z79.60
[2024-02-27 13:00] VITALS: BP 110/80; PULSE 96; TEMP 36.2; O2SAT 97; BMI 38.0
== END 2024-02-27 13:41 | disposition home or self-care (01) ==
PROVIDERS: PCP Internal Medicine; Visit Provider Nurse Practitioner Family
DX: M53.3 Sacrococcygeal disorders, not elsewhere classified (principal); R76.8 Other specified abnormal immunological findings in serum; M25.561 Pain in right knee; M25.562 Pain in left knee; G89.29 Other chronic pain; M45.A0 Non-radiographic axial spondyloarthritis of unspecified sites in spine; Z79.60 Long term (current) use of unspecified immunomodulators and immunosuppressants
CPT/HCPCS: 99213

== ENCOUNTER → 2024-02-27 12:33 | Outpatient (BNVA) | payer OTHER, SELFPAY | PROVIDERS: PCP Internal Medicine; Visit Provider Nurse Practitioner Family | DX: M53.3 Sacrococcygeal disorders, not elsewhere classified (principal); M25.561 Pain in right knee; M25.562 Pain in left knee; M45.A0 Non-radiographic axial spondyloarthritis of unspecified sites in spine; R76.8 Other specified abnormal immunological findings in serum; G89.29 Other chronic pain; Z79.60 Long term (current) use of unspecified immunomodulators and immunosuppressants | CPT/HCPCS: 99212 ==

== ENCOUNTER 2024-02-28 14:38 | Outpatient (AMB) | payer OTHER, SELFPAY ==
--- NOTE | 2024-06-19 15:48 | A.OFFWM_ITS ---
Intake Intake Visit Reasons: (TV) PO LSG 02/06/22 Allergies cat dander [CAT DANDER] Allergy (Mild, Verified 05/24/24 09:29) EYES- TEAR, ITCHY, face swells dog dander [DOG DANDER] Allergy (Mild, Verified 05/24/24 09:29) EYES- TEAR, ITCHY, hives duloxetine [From CYMBALTA] Adverse Reaction (Intermediate, Verified 05/24/24 09:29) VAGINAL BLEEDING PFSH Medical History (Updated 06/12/24 @ 16:11 by Jaz Bello) Bilateral knee pain Sacroiliac pain Positive DANIELE (antinuclear antibody) Refused influenza vaccine PTSD (post-traumatic stress disorder) Insomnia PONV (postoperative nausea and vomiting) Gastric ulcer Cholelithiasis Sacroiliitis Spondylosis of lumbar region without myelopathy or radiculopathy Scoliosis Goiter Restless leg syndrome ADHD (attention deficit hyperactivity disorder) Anxiety OCD (obsessive compulsive disorder) Hypertension GERD (gastroesophageal reflux disease) Vitamin D deficiency PCOS (polycystic ovarian syndrome) Body mass index [BMI]40.0-44.9, adult Irritable bowel syndrome with diarrhea Environmental and seasonal allergies Breast cancer screening by mammogram Dyslipidemia Gastritis Morbid obesity Hirsutism Telogen effluvium Heartburn Degenerative disc disease, lumbar Fibromyalgia Bipolar disorder Rosacea Acquired hypothyroidism Surgical History Hx of bariatric surgery Hx of shoulder surgery S/P laparoscopic sleeve gastrectomy Hx of cholecystectomy Hx of colonoscopy Miscarriage History of nasal surgery History of rotator cuff surgery Family History Father Diabetes mellitus Mother OCD (obsessive compulsive disorder) EITAN (generalized anxiety disorder) HTN (hypertension) Cancer Cervical cancer Family/Other FH: mental illness Maternal Grandmother EITAN (generalized anxiety disorder) Glaucoma Mental health disorder Maternal Grandfather Alzheimer disease Maternal Aunt Hypothyroidism Mental health disorder Paternal Grandmother Unknown family medical history Paternal Grandfather Unknown family medical history Sister Hypothyroidism Paternal Aunt Substance use disorder Maternal Uncle Substance use disorder Social History Household Members Other:: brother Housing: Apartment Are you a primary care transition manager to a significant other at home: No Do you presently have visiting nurse or other home services: No Alcohol intake: never Patient Tobacco Use Status: Former Tobacco user Tobacco use type: Cigarette Cigarettes Per Day: 20 Years Smoked: 3 e-Cigarette/Vaping Use: Never Used service: No Current occupational status: disabled Cognitive needs: No Hearing needs: No Vision needs: Yes Behavioral Health Assessment Weight Management Therapy Therapy Notes Details Pt reported getting hurt, now cannot exercise. Is trying to stay home more so that she can have a consistent routine. Assessment & Plan Assessment & Plan (1) ADHD (attention deficit hyperactivity disorder), combined type: Code(s): F90.2 - Attention-deficit hyperactivity disorder, combined type (2) Status post sleeve gastrectomy: Code(s): Z90.3 - Acquired absence of stomach [part of] (3) Posttraumatic stress disorder: Code(s): F43.10 - Post-traumatic stress disorder, unspecified Plan Patient struggles due to past complex trauma from childhood hunger and poverty, attachment issues with her mother, from her father, some addiction issues. Completed multiple sessions of EMDR with some improvement in symptoms. Patient had been experiencing weight gain post bariatric surgery, especially since new relationship that she is in. First time in 5 years she is in a stable and committed rel. Will continue with therapy group and [facility] Telehealth Telehealth Telehealth Platform: Telephone Location of provider rendering services: other Location of patient: address on file Patient Identification confirmed using: Name, : Yes Telehealth method: voice only Patient verbally consented to treatment: Yes Patient verbally consented to billing insurance company: Yes Patient informed of any privacy concerns related to visit: Yes Minutes spent on Phone/Video with Pt.: 45 Coding Level of Care Code Tele Psytx 45 mins (54468) Diagnoses ADHD (attention deficit hyperactivity disorder), combined type F90.2 Status post sleeve gastrectomy Z90.3 Posttraumatic stress disorder F43.10 Time Spent (min) 45
== END 2024-02-28 14:50 | disposition home or self-care (01) ==
PROVIDERS: PCP Internal Medicine; Visit Provider Counselor Mental Health
DX: F90.2 Attention-deficit hyperactivity disorder, combined type (principal); Z90.3 Acquired absence of stomach [part of]; F43.10 Post-traumatic stress disorder, unspecified
CPT/HCPCS: 90834

== ENCOUNTER → 2024-02-28 14:38 | Outpatient (BNVA) | payer OTHER, SELFPAY | PROVIDERS: PCP Internal Medicine; Visit Provider Counselor Mental Health | DX: F90.2 Attention-deficit hyperactivity disorder, combined type (principal); F43.10 Post-traumatic stress disorder, unspecified; Z90.3 Acquired absence of stomach [part of]; Z98.84 Bariatric surgery status | CPT/HCPCS: 90853 ==

== ENCOUNTER 2024-02-28 17:15 | Outpatient (AMB) | payer OTHER, SELFPAY ==
--- NOTE | 2024-06-19 16:00 | A.OFFWM_ITS ---
Intake Intake Visit Reasons: group therapy Allergies cat dander [CAT DANDER] Allergy (Mild, Verified 05/24/24 09:29) EYES- TEAR, ITCHY, face swells dog dander [DOG DANDER] Allergy (Mild, Verified 05/24/24 09:29) EYES- TEAR, ITCHY, hives duloxetine [From CYMBALTA] Adverse Reaction (Intermediate, Verified 05/24/24 09:29) VAGINAL BLEEDING PFSH Medical History (Updated 06/12/24 @ 16:11 by Jaz Bello) Bilateral knee pain Sacroiliac pain Positive DANIELE (antinuclear antibody) Refused influenza vaccine PTSD (post-traumatic stress disorder) Insomnia PONV (postoperative nausea and vomiting) Gastric ulcer Cholelithiasis Sacroiliitis Spondylosis of lumbar region without myelopathy or radiculopathy Scoliosis Goiter Restless leg syndrome ADHD (attention deficit hyperactivity disorder) Anxiety OCD (obsessive compulsive disorder) Hypertension GERD (gastroesophageal reflux disease) Vitamin D deficiency PCOS (polycystic ovarian syndrome) Body mass index [BMI]40.0-44.9, adult Irritable bowel syndrome with diarrhea Environmental and seasonal allergies Breast cancer screening by mammogram Dyslipidemia Gastritis Morbid obesity Hirsutism Telogen effluvium Heartburn Degenerative disc disease, lumbar Fibromyalgia Bipolar disorder Rosacea Acquired hypothyroidism Surgical History Hx of bariatric surgery Hx of shoulder surgery S/P laparoscopic sleeve gastrectomy Hx of cholecystectomy Hx of colonoscopy Miscarriage History of nasal surgery History of rotator cuff surgery Family History Father Diabetes mellitus Mother OCD (obsessive compulsive disorder) EITAN (generalized anxiety disorder) HTN (hypertension) Cancer Cervical cancer Family/Other FH: mental illness Maternal Grandmother EITAN (generalized anxiety disorder) Glaucoma Mental health disorder Maternal Grandfather Alzheimer disease Maternal Aunt Hypothyroidism Mental health disorder Paternal Grandmother Unknown family medical history Paternal Grandfather Unknown family medical history Sister Hypothyroidism Paternal Aunt Substance use disorder Maternal Uncle Substance use disorder Social History Household Members Other:: brother Housing: Apartment Are you a primary healthcare management to a significant other at home: No Do you presently have visiting nurse or other home services: No Alcohol intake: never Patient Tobacco Use Status: Former Tobacco user Tobacco use type: Cigarette Cigarettes Per Day: 20 Years Smoked: 3 e-Cigarette/Vaping Use: Never Used service: No Current occupational status: disabled Cognitive needs: No Hearing needs: No Vision needs: Yes Behavioral Health Assessment Weight Management Therapy Therapy Notes Details Group therapy session, participants discussed struggles, improvements, and supported each other. Topic was on motivation and making new habits. Pt was engaged and participated appropriately. Assessment & Plan Assessment & Plan (1) ADHD (attention deficit hyperactivity disorder), combined type: Code(s): F90.2 - Attention-deficit hyperactivity disorder, combined type (2) PTSD (post-traumatic stress disorder): Code(s): F43.10 - Post-traumatic stress disorder, unspecified Plan Patient is adjusting to recent move away from her place to [facility] with her boyfriend. She has been sleeping more and feeling sadness/grief. She was encouraged to reach out and make an appt with therapist at [facility] as this is her last appt with this assembly instructions writer. She has done extensive mental health work over the past few years including EMDR. Coding Level of Care Code Grp Psych (63464) Diagnoses ADHD (attention deficit hyperactivity disorder), combined type F90.2 PTSD (post-traumatic stress disorder) F43.10 Time Spent (min) 60
== END 2024-02-28 18:15 | disposition home or self-care (01) ==
PROVIDERS: PCP Internal Medicine; Visit Provider Counselor Mental Health
DX: F90.2 Attention-deficit hyperactivity disorder, combined type (principal); F43.10 Post-traumatic stress disorder, unspecified

== ENCOUNTER 2024-03-13 13:24 | Outpatient (AMB) | payer OTHER, SELFPAY ==
--- NOTE | 2024-03-13 13:34 | MHC.WMTHER ---
Intake Intake Visit Reasons: (TV) PO LSG 02/06/22 Allergies cat dander [CAT DANDER] Allergy (Mild, Verified 03/20/24 14:04) EYES- TEAR, ITCHY, face swells dog dander [DOG DANDER] Allergy (Mild, Verified 03/20/24 14:04) EYES- TEAR, ITCHY, hives duloxetine [From CYMBALTA] Adverse Reaction (Intermediate, Verified 03/20/24 14:04) VAGINAL BLEEDING PFSH Medical History Long-term use of immunosuppressant medication Non-radiographic axial spondyloarthritis Bilateral knee pain Sacroiliac pain Positive DANIELE (antinuclear antibody) Refused influenza vaccine PTSD (post-traumatic stress disorder) Insomnia PONV (postoperative nausea and vomiting) Gastric ulcer Cholelithiasis Sacroiliitis Spondylosis of lumbar region without myelopathy or radiculopathy Scoliosis Goiter Restless leg syndrome ADHD (attention deficit hyperactivity disorder) Anxiety OCD (obsessive compulsive disorder) Hypertension GERD (gastroesophageal reflux disease) Vitamin D deficiency PCOS (polycystic ovarian syndrome) Body mass index [BMI]40.0-44.9, adult Irritable bowel syndrome with diarrhea Environmental and seasonal allergies Breast cancer screening by mammogram Dyslipidemia Gastritis Oral abscess Morbid obesity Hirsutism Androgenetic alopecia Telogen effluvium Heartburn Degenerative disc disease, lumbar Fibromyalgia Bipolar disorder Rosacea Acquired hypothyroidism Surgical History Hx of bariatric surgery Hx of shoulder surgery S/P laparoscopic sleeve gastrectomy Hx of cholecystectomy Hx of colonoscopy Miscarriage History of nasal surgery History of rotator cuff surgery Family History Father Diabetes mellitus Mother OCD (obsessive compulsive disorder) EITAN (generalized anxiety disorder) HTN (hypertension) Cancer Cervical cancer Family/Other FH: mental illness Maternal Grandmother EITAN (generalized anxiety disorder) Glaucoma Mental health disorder Maternal Grandfather Alzheimer disease Maternal Aunt Hypothyroidism Mental health disorder Paternal Grandmother Unknown family medical history Paternal Grandfather Unknown family medical history Sister Hypothyroidism Paternal Aunt Substance use disorder Maternal Uncle Substance use disorder Social History Household Members Other:: brother Housing: Apartment Are you a primary primary care provider to a significant other at home: No Do you presently have visiting nurse or other home services: No Alcohol intake: never Patient Tobacco Use Status: Former Tobacco user Quit Date: 2011 Tobacco use type: Cigarette Cigarettes Per Day: 20 Years Smoked: 3 e-Cigarette/Vaping Use: Never Used service: No Current occupational status: disabled Cognitive needs: No Hearing needs: No Vision needs: Yes Behavioral Health Assessment Weight Management Therapy Therapy Notes Details rushing, over booked, feels stress due to appts and errands. perpespective shift on how much time off she gets when she travle with her BF, discussed halth food rel. she is going walking with group today. Assessment & Plan Assessment & Plan (1) ADHD (attention deficit hyperactivity disorder), combined type: Code(s): F90.2 - Attention-deficit hyperactivity disorder, combined type (2) Status post sleeve gastrectomy: Code(s): Z90.3 - Acquired absence of stomach [part of] (3) Posttraumatic stress disorder: Code(s): F43.10 - Post-traumatic stress disorder, unspecified Plan Patient struggles due to past complex trauma from childhood hunger and poverty, attachment issues with her mother, from her father, some addiction issues. Completed multiple sessions of EMDR with some improvement in symptoms. Patient had been experiencing weight gain post bariatric surgery, especially since new relationship that she is in. First time in 5 years she is in a stable and committed rel. Will continue with therapy group. Telehealth Telehealth Telehealth Platform: Other (please specify) (zoom ) Location of provider rendering services: practice address Location of patient: address on file Patient Identification confirmed using: Name, : Yes Telehealth method: video Patient verbally consented to treatment: Yes Patient verbally consented to billing insurance company: Yes Patient informed of any privacy concerns related to visit: Yes Minutes spent on Phone/Video with Pt.: 45 Coding Level of Care Code Tele Psytx 45 mins (02366) Diagnoses ADHD (attention deficit hyperactivity disorder), combined type F90.2 Status post sleeve gastrectomy Z90.3 Posttraumatic stress disorder F43.10 Time Spent (min) 45
== END 2024-03-13 13:34 | disposition home or self-care (01) ==
LOC: HO.HBST 13:24
PROVIDERS: PCP Internal Medicine; Visit Provider Counselor Mental Health
DX: F90.2 Attention-deficit hyperactivity disorder, combined type (principal); Z90.3 Acquired absence of stomach [part of]; F43.10 Post-traumatic stress disorder, unspecified
CPT/HCPCS: 90834

== ENCOUNTER → 2024-03-13 13:24 | Outpatient (BNVA) | payer OTHER, SELFPAY | PROVIDERS: PCP Internal Medicine; Visit Provider Counselor Mental Health ==

== ENCOUNTER 2024-03-13 17:15 | Outpatient (AMB) | payer OTHER, SELFPAY ==
--- NOTE | 2024-06-17 16:00 | MHC.WMTHER ---
Intake Intake Visit Reasons: group therapy Allergies cat dander [CAT DANDER] Allergy (Mild, Verified 05/24/24 09:29) EYES- TEAR, ITCHY, face swells dog dander [DOG DANDER] Allergy (Mild, Verified 05/24/24 09:29) EYES- TEAR, ITCHY, hives duloxetine [From CYMBALTA] Adverse Reaction (Intermediate, Verified 05/24/24 09:29) VAGINAL BLEEDING PFSH Medical History (Updated 06/12/24 @ 16:11 by Jaz Bello) Bilateral knee pain Sacroiliac pain Positive DANIELE (antinuclear antibody) Refused influenza vaccine PTSD (post-traumatic stress disorder) Insomnia PONV (postoperative nausea and vomiting) Gastric ulcer Cholelithiasis Sacroiliitis Spondylosis of lumbar region without myelopathy or radiculopathy Scoliosis Goiter Restless leg syndrome ADHD (attention deficit hyperactivity disorder) Anxiety OCD (obsessive compulsive disorder) Hypertension GERD (gastroesophageal reflux disease) Vitamin D deficiency PCOS (polycystic ovarian syndrome) Body mass index [BMI]40.0-44.9, adult Irritable bowel syndrome with diarrhea Environmental and seasonal allergies Breast cancer screening by mammogram Dyslipidemia Gastritis Morbid obesity Hirsutism Telogen effluvium Heartburn Degenerative disc disease, lumbar Fibromyalgia Bipolar disorder Rosacea Acquired hypothyroidism Surgical History Hx of bariatric surgery Hx of shoulder surgery S/P laparoscopic sleeve gastrectomy Hx of cholecystectomy Hx of colonoscopy Miscarriage History of nasal surgery History of rotator cuff surgery Family History Father Diabetes mellitus Mother OCD (obsessive compulsive disorder) EITAN (generalized anxiety disorder) HTN (hypertension) Cancer Cervical cancer Family/Other FH: mental illness Maternal Grandmother EITAN (generalized anxiety disorder) Glaucoma Mental health disorder Maternal Grandfather Alzheimer disease Maternal Aunt Hypothyroidism Mental health disorder Paternal Grandmother Unknown family medical history Paternal Grandfather Unknown family medical history Sister Hypothyroidism Paternal Aunt Substance use disorder Maternal Uncle Substance use disorder Social History Household Members Other:: brother Housing: Apartment Are you a primary progressive care manager to a significant other at home: No Do you presently have visiting nurse or other home services: No Alcohol intake: never Patient Tobacco Use Status: Former Tobacco user Tobacco use type: Cigarette Cigarettes Per Day: 20 Years Smoked: 3 e-Cigarette/Vaping Use: Never Used service: No Current occupational status: disabled Cognitive needs: No Hearing needs: No Vision needs: Yes Behavioral Health Assessment Weight Management Therapy Therapy Notes Details Group therapy session on building and improving a healthy relationship with food. Patient was engaged, shared appropriately, and helped support others. Assessment & Plan Assessment & Plan (1) Adjustment disorder with depressed mood: Code(s): F43.21 - Adjustment disorder with depressed mood Plan Patient is adjusting to recent move away from her place to [facility] with her boyfriend. She has been sleeping more and feeling sadness/grief. She was encouraged to reach out and make an appt with therapist at [facility] as this is her last appt with this engineering writer. She has done extensive mental health work over the past few years including EMDR. Coding Level of Care Code Grp Psych (79115) Diagnoses Adjustment disorder with depressed mood F43.21 Time Spent (min) 60
== END 2024-03-13 18:15 | disposition home or self-care (01) ==
PROVIDERS: PCP Internal Medicine; Visit Provider Counselor Mental Health
DX: F43.21 Adjustment disorder with depressed mood (principal)
CPT/HCPCS: 99499

== ENCOUNTER 2024-03-20 12:34 | Outpatient (AMB) | payer OTHER, SELFPAY ==
[2024-03-20 13:37] VITALS: BP 120/70; PULSE 88; O2SAT 97; BMI 38.1
--- NOTE | 2024-03-20 13:37 | MHC.PC.OV ---
Vital Signs 03/20/24 13:37 Height 5 ft 3 in Weight 215 lb BMI 38.1 BP 120/70 Blood Pressure Location Rt brachial Position Sitting Pulse 88 Pulse Source Pulse Oximeter Pulse Oximetry (%) 97 Oxygen Delivery Method Room Air Intake Visit Reasons: Obesity Dx Intake Note: Pt is here today to discuss wgt loss medication Allergies cat dander [CAT DANDER] Allergy (Mild, Verified 03/28/24 23:55) EYES- TEAR, ITCHY, face swells dog dander [DOG DANDER] Allergy (Mild, Verified 03/28/24 23:55) EYES- TEAR, ITCHY, hives duloxetine [From CYMBALTA] Adverse Reaction (Intermediate, Verified 03/28/24 23:55) VAGINAL BLEEDING Medication List - Last Reconciled 03/20/24 by Elke Cross MD acetaminophen ER (Tylenol 8 Hour) 650 mg PO Q12H albuterol sulfate 90 mcg/actuation (Ventolin HFA) 1 - 2 puffs inhalation Q4H PRN alclometasone 0.05% appl topical BID PRN back brace As directed benzoyl peroxide 10% topical buspirone 5 mg PO TID calcium carbonate-vitamin D3 250 mg-3.125 mcg (125 unit) 1 tab PO BID cariprazine (Vraylar) 3 mg PO DAILY cetirizine 10 mg PO DAILY PRN clindamycin phosphate 1% topical BID clonazepam mg PO ONCE PRN dextroamphetamine-amphetamine 25 mg ER (Adderall XR) 50 mg PO ONCE diclofenac sodium 1% topical fluticasone propionate 50 mcg/actuation 2 sprays intranasal DAILY ivermectin 1% (Soolantra) 1 appl topical DAILY leflunomide 20 mg PO DAILY levothyroxine 50 mcg PO DAILY 30 days meloxicam 15 mg PO DAILY metformin 500 mg PO BID 30 days multivitamin 1 tab PO DAILY pregabalin 75 mg PO BID spironolactone 50 mg PO DAILY vilazodone 40 mg PO DAILY Tobacco use date assessed: 03/20/24 Dental Screening Dental Screen Date: 03/20/24 Did you have a dental visit in the last 12 months?: Yes Did you have a dental problem in the last 6 months where you did not have access to dental care?: Yes Was dental information given to patient?: Patient has dentist HPI Obesity Dx HPI Details 48-year-old lady with obesity status post gastric sleeve surgery, with chronic low back pain due to spondylosis of lumbosacral spine and scoliosis, here today requesting a prescriptio for a walker with seat to assist with ambulation. Has been having difficulty walking for extended periods of time due to chronic low back pain. She also has been trying to lose weight through diet and exercise this past several months but has been unsuccessful, would like to see if she get a prescription for Ozempic to assist her with weight loss. [facility] Medical History (Updated 03/29/24 @ 00:59 by Elke Cross MD) Non-radiographic axial spondyloarthritis Bilateral knee pain Sacroiliac pain Positive DANIELE (antinuclear antibody) Refused influenza vaccine PTSD (post-traumatic stress disorder) Insomnia PONV (postoperative nausea and vomiting) Gastric ulcer Cholelithiasis Sacroiliitis Spondylosis of lumbar region without myelopathy or radiculopathy Scoliosis Goiter Restless leg syndrome ADHD (attention deficit hyperactivity disorder) Anxiety OCD (obsessive compulsive disorder) Hypertension GERD (gastroesophageal reflux disease) Vitamin D deficiency PCOS (polycystic ovarian syndrome) Body mass index [BMI]40.0-44.9, adult Irritable bowel syndrome with diarrhea Environmental and seasonal allergies Breast cancer screening by mammogram Dyslipidemia Gastritis Morbid obesity Hirsutism Androgenetic alopecia Telogen effluvium Heartburn Degenerative disc disease, lumbar Fibromyalgia Bipolar disorder Rosacea Acquired hypothyroidism Surgical History (Updated 03/29/24 @ 00:51 by Elke Cross MD) Hx of bariatric surgery Hx of shoulder surgery S/P laparoscopic sleeve gastrectomy Hx of cholecystectomy Hx of colonoscopy Miscarriage History of nasal surgery History of rotator cuff surgery Family History Father Diabetes mellitus Mother OCD (obsessive compulsive disorder) EITAN (generalized anxiety disorder) HTN (hypertension) Cancer Cervical cancer Family/Other FH: mental illness Maternal Grandmother EITAN (generalized anxiety disorder) Glaucoma Mental health disorder Maternal Grandfather Alzheimer disease Maternal Aunt Hypothyroidism Mental health disorder Paternal Grandmother Unknown family medical history Paternal Grandfather Unknown family medical history Sister Hypothyroidism Paternal Aunt Substance use disorder Maternal Uncle Substance use disorder Social History Household Members Other:: brother Housing: Apartment Are you a primary primary care nurse to a significant other at home: No Do you presently have visiting nurse or other home services: No Alcohol intake: never Patient Tobacco Use Status: Former Tobacco user Quit Date: 2011 Tobacco use type: Cigarette Cigarettes Per Day: 20 Years Smoked: 3 e-Cigarette/Vaping Use: Never Used service: No Current occupational status: disabled Cognitive needs: No Hearing needs: No Vision needs: Yes Questionnaire PHQ-9 Over the last 2 weeks, how often have you been bothered by any of the following problems? 1. Little interest or pleasure in doing things: not at all 2. Feeling down, depressed, or hopeless: not at all 3. Trouble falling or staying asleep, or sleeping too much: not at all 4. Feeling tired or having little energy: not at all 5. Poor appetite or overeating: not at all 6. Feeling bad about yourself - or that you are a failure or have let yourself or your family down: not at all 7. Trouble concentrating on things, such as reading the newspaper or watching television: not at all 8. Moving or speaking so slowly that other people could have noticed. Or the opposite - being so fidgety or restless that you have been moving around a lot more than usual: not at all 9. Thoughts that you would be better off or of hurting yourself in some way: not at all Total score: 0 Depression Screening Interpretation: Negative Depression Screening Done: Yes 01895 - PHQ-9 Billing: Yes Source: Developed by Drs. Parviz Lora, Ghazala Chang, Ryan Holland and colleagues, with an educational bryan from [employer]. Thrive Questionnaire Date Thrive assessed: 03/20/24 I am a: Patient What is your living situation today?: I have a steady place to live Within the past 12 months, did the food you bought not last and you didn't have the money to get more?: Never true Within the past 12 months, did you worry whether your food would run out before you got money to buy more?: Never true Do you have trouble paying for medicines?: No Do you have trouble getting transportation to medical appointments?: No Do you have trouble paying your heating and electricity bill?: No Do you have trouble taking care of your child, family member or friend?: No Do you have trouble with day-to-day activities such as bathing, preparing meals, shopping, managing finances, etc.?: No Are you currently unemployed and looking for a job?: No Are you interested in more education?: No THRIVE Score: 0 AUDIT C Alcohol Use Questionnaire (AUDIT-C) 1. How often do you have a drink containing alcohol?: Never Total Score: 0 EITAN-7 AMB Questionnaire EITAN-7 Date EITAN - 7 assessed: 03/20/24 Feeling nervous, anxious, or on edge: 1 = Several days Not being able to stop or control worryin = Not at all Worrying too much about different things: 1 = Several days Trouble relaxin = Several days Being so restless that it is hard to sit still: 0 = Not at all Becoming easily annoyed or irritable: 0 = Not at all Feeling afraid as if something awful might happen: 0 = Not at all Total EITAN-7 score (0-4 normal; 5-9 mild; 10-14 moderate; 15-21 severe): 3 Source: Developed by Drs. Parviz Lora, Ghazala Chang, Ryan Holland and colleagues, with an educational bryan from [employer]. EITAN-7 Assessment Billing EITAN-7 Assessment Tool: EITAN-7 Assessment 97858 Review of Systems Const Denies fever(s), Denies headache(s) and Denies weakness ENT Denies dizziness, Denies headache(s), Denies nasal congestion, Denies nasal discharge and Denies sore throat Card Denies chest pain, Denies lightheadedness, Denies palpitations and Denies dyspnea Resp Denies chest congestion, Denies cough, Denies dyspnea and Denies wheezing GI Denies abdominal pain and Denies change in bowel habits Denies hematuria, Denies urinary frequency, Denies dysuria and Denies urinary urgency Musc Reports as per HPI Neuro Denies dizziness, Denies headache(s) and Denies weakness Endo Denies polydipsia, Denies polyuria and Denies palpitations Daniel/Lymph Denies easy bruising Aller/Immun Denies seasonal rhinorrhea and Denies wheezing Physical exam (Primary Care) Vital Signs: Last Vital Signs Pulse 88 03/20/24 13:37 BP 120/70 03/20/24 13:37 Pulse Ox 97 03/20/24 13:37 Oxygen Delivery Method Room Air 03/20/24 13:37 BMI result Body Mass Index 38.1 Tobacco/Smoking Status: Tobacco use Status Tobacco use date assessed 03/20/24 03/20/24 13:45 Patient Tobacco Use Status Former Tobacco user 03/20/24 13:45 Tobacco use type Cigarette 03/20/24 13:45 e-Cigarette/Vaping Use Never Used 03/20/24 13:45 PHQ-9: PHQ-9 Score PHQ-9: Total score 0 03/20/24 14:22 Depression Screening Interpretation: Negative Thrive Assessment: Date of Thrive Assessment Date Thrive assessed 03/20/24 03/20/24 13:45 Const Other: Alert oriented x3, no acute distress noted, ambulatory with normal gait HENMT Head: Yes normocephalic Face and sinus: Yes face symmetric Mouth: Normal oral and palatal mucosa present, oropharynx normal and moist mucous membranes Neck Neck: Yes full ROM, Yes no lymphadenopathy and Yes supple Resp Auscultation: clear to auscultation bilaterally Cardio Rate: regular rate Rhythm: regular rhythm Heart sounds: S1 normal heart sound present and S2 normal heart sound present GI Palpation (GI): Soft to palpation, nontender and no guarding Back/Spine/Pelvis Thoracic/Lumbar Spine: paraspinal muscle tenderness bilaterally in the mid lumbar and in the lower lumbar Skin General skin exam: no rashes or lesions noted Neuro General: tone normal, moves all extremities and no focal motor deficits Extrem General: Yes full ROM, Yes no joint enlargement, Yes no clubbing, cyanosis or edema, Yes no pedal edema and Yes no calf tenderness Assessment and Plan Assessment & Plan (1) Obesity: Code(s): E66.9 - Obesity, unspecified Qualifiers: Obesity type: due to excess calories Obesity classification: adult class 2 (BMI 35 - 39.9) Serious obesity comorbidity presence: without serious comorbidity Body mass index: BMI 38.0-38.9 Qualified Code(s): E66.09 - Other obesity due to excess calories; Z68.38 - Body mass index [BMI] 38.0-38.9, adult Plan: Had gastric sleeve surgery in the past with temporary weight loss , has been following a healthy diet but unable to exercise due to joint and back pain, prescription sent for Ozempic 0.25 mg injected once weekly for 4 weeks. Return to clinic in 4 weeks for follow-up (2) Degenerative disc disease, lumbar: Code(s): M51.36 - Other intervertebral disc degeneration, lumbar region Plan: Prescription sent for walker with seat (3) Spondylosis of lumbar region without myelopathy or radiculopathy: Code(s): M47.816 - Spondylosis without myelopathy or radiculopathy, lumbar region Plan: Prescription sent for walker with seat, takes meloxicam as needed for pain Medications: New semaglutide (Ozempic) for 4 weeks 0.25 mg (0.368 mL) subcut QWEEK 1.84 mL 0RF 1 month E66.9 - Obesity, unspecified walker (Ultra-Light Rollator misc) As directed, with seat 1 ea 0RF M25.561 - Pain in right knee, M25.562 - Pain in left knee, G89.29 - Other chronic pain, M54.9 - Dorsalgia, unspecified, M47.816 - Spondylosis without myelopathy or radiculopathy, lumbar region, M51.36 - Other intervertebral disc degeneration, lumbar region Coding Level of Care Code Est Pt Level 4 (63577) Diagnoses Class 2 obesity due to excess calories without serious comorbidity with body mass index (BMI) of 38.0 to 38.9 in adult E66.09; Z68.38 Obesity type: due to excess calories Obesity classification: adult class 2 (BMI 35 - 39.9) Serious obesity comorbidity presence: without serious comorbidity Body mass index: BMI 38.0-38.9 Degenerative disc disease, lumbar M51.36 Spondylosis of lumbar region without myelopathy or radiculopathy M47.816 Additional Codes EITAN-7 Assessment Billing - EITAN-7 Assessment Tool: EITAN-7 Assessment [id number] ([id number])
== END 2024-03-20 16:34 | disposition home or self-care (01) ==
PROVIDERS: PCP Internal Medicine; Visit Provider Internal Medicine
DX: M51.36 Other intervertebral disc degeneration, lumbar region (principal); E66.09 Other obesity due to excess calories; Z68.38 Body mass index [BMI] 38.0-38.9, adult; Z98.84 Bariatric surgery status; M47.816 Spondylosis without myelopathy or radiculopathy, lumbar region
CPT/HCPCS: 99214

== ENCOUNTER 2024-03-25 10:20 | Outpatient (AMB) | payer OTHER, SELFPAY ==
--- NOTE | 2024-03-25 09:23 | MHC.OFFVISWM ---
VS Expanded 03/25/24 09:24 Height 5 ft 3 in Weight 212 lb 7 oz BMI 37.6 Intake Visit Reasons: (TV) PO LSG 02/06/22 Allergies cat dander [CAT DANDER] Allergy (Mild, Verified 03/20/24 14:04) EYES- TEAR, ITCHY, face swells dog dander [DOG DANDER] Allergy (Mild, Verified 03/20/24 14:04) EYES- TEAR, ITCHY, hives duloxetine [From CYMBALTA] Adverse Reaction (Intermediate, Verified 03/20/24 14:04) VAGINAL BLEEDING HPI Comments Details: 43-year-old female returns to the office today in follow-up. She is approximately 2 years 2 months status post sleeve gastrectomy performed on 02/06/2022. She has been followed by our registered dietitian, Jazmín in the past. Weight today is 212.7 lb with a BMI of 37.6. She states she is upset with herself as she has not lost weight and she states she was jogging and sprained her ankle 3 weeks. now 6 weeks with crutches. States that she feels hungry mid morning. Enquiring whether she could add an additional shake. LSG with Dr. Easley 02/16/22 Preop weight (02/11/2022) 205# weight at 3 MO 176# weight at 6 MO PO 173 weight weight (12/09/22) 188# Weight in Dec 184 last weight 200# current 213# Goal 140# meal plan: 6 am 2 eggs w vegetables, no toast, 4 oz coffee w tsp 11/21 and 11/21 9-10 am 1 orange noon Orgain shake 1.5 scoops in 8 oz almond milk 3 pm another shake 6 pm 7 forks of protein and 7 forks of vegetables, no rice or beans. 730 pm fruit (an apple, 3/4 cut fresh berries, orange, kiwi, pear) Drinkin-32 oz water 20 oz gatorade zero Exercise plan: none stationary bike at home just joined [facility] Medical History Long-term use of immunosuppressant medication Non-radiographic axial spondyloarthritis Bilateral knee pain Sacroiliac pain Positive DANIELE (antinuclear antibody) Refused influenza vaccine PTSD (post-traumatic stress disorder) Insomnia PONV (postoperative nausea and vomiting) Gastric ulcer Cholelithiasis Sacroiliitis Spondylosis of lumbar region without myelopathy or radiculopathy Scoliosis Goiter Restless leg syndrome ADHD (attention deficit hyperactivity disorder) Anxiety OCD (obsessive compulsive disorder) Hypertension GERD (gastroesophageal reflux disease) Vitamin D deficiency PCOS (polycystic ovarian syndrome) Body mass index [BMI]40.0-44.9, adult Irritable bowel syndrome with diarrhea Environmental and seasonal allergies Breast cancer screening by mammogram Dyslipidemia Gastritis Oral abscess Morbid obesity Hirsutism Androgenetic alopecia Telogen effluvium Heartburn Degenerative disc disease, lumbar Fibromyalgia Bipolar disorder Rosacea Acquired hypothyroidism Surgical History Hx of bariatric surgery Hx of shoulder surgery S/P laparoscopic sleeve gastrectomy Hx of cholecystectomy Hx of colonoscopy Miscarriage History of nasal surgery History of rotator cuff surgery Family History Father Diabetes mellitus Mother OCD (obsessive compulsive disorder) EITAN (generalized anxiety disorder) HTN (hypertension) Cancer Cervical cancer Family/Other FH: mental illness Maternal Grandmother EITAN (generalized anxiety disorder) Glaucoma Mental health disorder Maternal Grandfather Alzheimer disease Maternal Aunt Hypothyroidism Mental health disorder Paternal Grandmother Unknown family medical history Paternal Grandfather Unknown family medical history Sister Hypothyroidism Paternal Aunt Substance use disorder Maternal Uncle Substance use disorder Social History Household Members Other:: brother Housing: Apartment Are you a primary home health aide caregiver to a significant other at home: No Do you presently have visiting nurse or other home services: No Alcohol intake: never Patient Tobacco Use Status: Former Tobacco user Quit Date: 2011 Tobacco use type: Cigarette Cigarettes Per Day: 20 Years Smoked: 3 e-Cigarette/Vaping Use: Never Used service: No Current occupational status: disabled Cognitive needs: No Hearing needs: No Vision needs: Yes Telehealth Telehealth Telehealth Platform: Telephone Location of provider rendering services: practice address Location of patient: address on file Patient Identification confirmed using: Name, : Yes Telehealth method: voice only Patient verbally consented to treatment: Yes Patient verbally consented to billing insurance company: Yes Patient informed of any privacy concerns related to visit: Yes Minutes spent on Phone/Video with Pt.: 15 Assessment & Plan Assessment & Plan (1) Obesity: Code(s): E66.9 - Obesity, unspecified Category: Medical Plan: Discouraged from jogging. She states that she has an appointment with her orthopedic physician and will inquire about initiating her stationary bike. Discussed the importance of consistent cardiovascular activity. She will inquire about swimming and walking in the pool at the [facility]. She will additionally inquire about the use of her stationary bike. Encouraged to track her calories and burn 300 or more daily. Change meal plans slightly based on her stating she is hungry mid mornin am 2 eggs w vegetables, no toast, 4 oz coffee w tsp 11/21 and 2 9-10 am shake, 1 scoop in 8 oz almond milk noon Orgain shake 1 scoop in 8 oz almond milk 3 pm another shake 6 pm 7 forks of protein and 7 forks of vegetables, no rice or beans. 730 pm fruit (an apple, 3/4 cut fresh berries, orange, kiwi, pear) We will have her return to the office in approximately 4-6 weeks. Additionally encouraged to text weekly her weight and if any problems or concerns
[2024-03-25 09:24] VITALS: BMI 37.6
== END 2024-03-25 10:22 | disposition home or self-care (01) ==
LOC: HO.HBS 10:20
PROVIDERS: PCP Internal Medicine; Visit Provider Physician Assistant Surgical
DX: E66.9 Obesity, unspecified (principal)
CPT/HCPCS: 99213

== ENCOUNTER → 2024-03-25 10:20 | Outpatient (BNVA) | payer OTHER, SELFPAY | PROVIDERS: PCP Internal Medicine; Visit Provider Physician Assistant Surgical ==

== ENCOUNTER 2024-03-25 13:23 | Outpatient (AMB) | payer OTHER, SELFPAY ==
--- NOTE | 2024-03-25 15:22 | MHC.WMTHER ---
Intake Intake Visit Reasons: (TV) PO LSG 02/06/22 Allergies cat dander [CAT DANDER] Allergy (Mild, Verified 03/20/24 14:04) EYES- TEAR, ITCHY, face swells dog dander [DOG DANDER] Allergy (Mild, Verified 03/20/24 14:04) EYES- TEAR, ITCHY, hives duloxetine [From CYMBALTA] Adverse Reaction (Intermediate, Verified 03/20/24 14:04) VAGINAL BLEEDING PFSH Medical History Long-term use of immunosuppressant medication Non-radiographic axial spondyloarthritis Bilateral knee pain Sacroiliac pain Positive DANIELE (antinuclear antibody) Refused influenza vaccine PTSD (post-traumatic stress disorder) Insomnia PONV (postoperative nausea and vomiting) Gastric ulcer Cholelithiasis Sacroiliitis Spondylosis of lumbar region without myelopathy or radiculopathy Scoliosis Goiter Restless leg syndrome ADHD (attention deficit hyperactivity disorder) Anxiety OCD (obsessive compulsive disorder) Hypertension GERD (gastroesophageal reflux disease) Vitamin D deficiency PCOS (polycystic ovarian syndrome) Body mass index [BMI]40.0-44.9, adult Irritable bowel syndrome with diarrhea Environmental and seasonal allergies Breast cancer screening by mammogram Dyslipidemia Gastritis Oral abscess Morbid obesity Hirsutism Androgenetic alopecia Telogen effluvium Heartburn Degenerative disc disease, lumbar Fibromyalgia Bipolar disorder Rosacea Acquired hypothyroidism Surgical History Hx of bariatric surgery Hx of shoulder surgery S/P laparoscopic sleeve gastrectomy Hx of cholecystectomy Hx of colonoscopy Miscarriage History of nasal surgery History of rotator cuff surgery Family History Father Diabetes mellitus Mother OCD (obsessive compulsive disorder) EITAN (generalized anxiety disorder) HTN (hypertension) Cancer Cervical cancer Family/Other FH: mental illness Maternal Grandmother EITAN (generalized anxiety disorder) Glaucoma Mental health disorder Maternal Grandfather Alzheimer disease Maternal Aunt Hypothyroidism Mental health disorder Paternal Grandmother Unknown family medical history Paternal Grandfather Unknown family medical history Sister Hypothyroidism Paternal Aunt Substance use disorder Maternal Uncle Substance use disorder Social History Household Members Other:: brother Housing: Apartment Are you a primary field care advocate to a significant other at home: No Do you presently have visiting nurse or other home services: No Alcohol intake: never Patient Tobacco Use Status: Former Tobacco user Quit Date: 2011 Tobacco use type: Cigarette Cigarettes Per Day: 20 Years Smoked: 3 e-Cigarette/Vaping Use: Never Used service: No Current occupational status: disabled Cognitive needs: No Hearing needs: No Vision needs: Yes Behavioral Health Assessment Weight Management Therapy Therapy Notes Details EMDR session on fear of cockroaches stemming from childhood event related to mom. incomplete session continue next week. Assessment & Plan Assessment & Plan (1) ADHD (attention deficit hyperactivity disorder), combined type: Code(s): F90.2 - Attention-deficit hyperactivity disorder, combined type (2) Status post sleeve gastrectomy: Code(s): Z90.3 - Acquired absence of stomach [part of] (3) Posttraumatic stress disorder: Code(s): F43.10 - Post-traumatic stress disorder, unspecified Plan Patient struggles due to past complex trauma from childhood hunger and poverty, attachment issues with her mother, from her father, some addiction issues. Completed multiple sessions of EMDR with some improvement in symptoms. Patient had been experiencing weight gain post bariatric surgery, especially since new relationship that she is in. First time in 5 years she is in a stable and committed rel. Will continue with therapy group. Telehealth Telehealth Telehealth Platform: Other (please specify) (zoom) Location of provider rendering services: practice address Location of patient: address on file Patient Identification confirmed using: Name, : Yes Telehealth method: video Patient verbally consented to treatment: Yes Patient verbally consented to billing insurance company: Yes Patient informed of any privacy concerns related to visit: Yes Minutes spent on Phone/Video with Pt.: 48 Coding Level of Care Code Tele Psytx 45 mins ([id number]) Diagnoses ADHD (attention deficit hyperactivity disorder), combined type F90.2 Status post sleeve gastrectomy Z90.3 Posttraumatic stress disorder F43.10 Time Spent (min) 48
== END 2024-03-25 15:21 | disposition home or self-care (01) ==
LOC: HO.HBST 13:23
PROVIDERS: PCP Internal Medicine; Visit Provider Counselor Mental Health
DX: F90.2 Attention-deficit hyperactivity disorder, combined type (principal); Z90.3 Acquired absence of stomach [part of]; F43.10 Post-traumatic stress disorder, unspecified
CPT/HCPCS: 90834

== ENCOUNTER 2024-03-27 11:21 | Outpatient (AMB) | payer OTHER, SELFPAY ==
--- NOTE | 2024-03-27 11:47 | A.OFFVIS_ITS ---
Vital Signs 03/27/24 11:49 Height 5 ft 3 in Weight 214 lb 4.629 oz BMI 38.0 BP 120/74 Blood Pressure Location Rt brachial Position Sitting Pulse 101 H Pulse Source Pulse Oximeter Pulse Oximetry (%) 95 Oxygen Delivery Method Room Air Intake Visit Reasons: AxSpA/Low Back pain Intake Note: Patient last seen on 02/27/24, presents to office today for AxSpa and low back pain follow up. Would like to discus treatment Reports ankle sprain while jogging, seeing Ortho tomorrow Needs refill for pregabalin Welfare Service Aide Required: No Accompanied by: Self / Same As Patient Allergies cat dander [CAT DANDER] Allergy (Mild, Verified 03/28/24 23:55) EYES- TEAR, ITCHY, face swells dog dander [DOG DANDER] Allergy (Mild, Verified 03/28/24 23:55) EYES- TEAR, ITCHY, hives duloxetine [From CYMBALTA] Adverse Reaction (Intermediate, Verified 03/28/24 23:55) VAGINAL BLEEDING HPI Comments Details: Ms. Sebastian 43yoF returns for follow-up of multiple joint pain. She continues with complaints of pain in the lower back and SI. Had recent corticosteroid injection to SI joint . Patient states this help. She has backpain since her early 30s and does not remember an injury. She does have scoliosis and family hx. She has been taking the Leflunomide 20 mg for two months now and have not felt any improvement to her lumbar and SI pain. She saw pain management for a lumbar injection February 29, 2024. May not be beneficial to start TNF trial given she is asymptomatic at this time. Stop The LEF. Prior Visit 12/06/2023 Nisha CalvinyoAnthony returns for follow-up of multiple joint pain. Her last visit was 09/2023. She continues with complaints of pain in the lower back. This seems to be more on the left side with radiation to the left buttock and thigh. Symptoms are worse at night and after prolonged sitting. They seem to get bet ter towards the end of the day. In the past she was prescribed a short-term course of Toradol in the ER and that seemed to help but symptoms returned. She is thought to have fibromyalgia and does take pregabalin 75 mg b.i.d., occasional acetaminophen, p.r.n. cyclobenzaprine, Abilify, and vilazodone. She has never had inflammatory bowel symptoms or inflammatory eye symptoms. She receives lidocaine injection from pain management and is has an upcoming appointment. She does report relief as her last injection. Had recent corticosteroid injection to lower 12.2022. Patient states this help [facility] Medical History (Updated 03/29/24 @ 00:59 by Elke Cross MD) Non-radiographic axial spondyloarthritis Bilateral knee pain Sacroiliac pain Positive DANIELE (antinuclear antibody) Refused influenza vaccine PTSD (post-traumatic stress disorder) Insomnia PONV (postoperative nausea and vomiting) Gastric ulcer Cholelithiasis Sacroiliitis Spondylosis of lumbar region without myelopathy or radiculopathy Scoliosis Goiter Restless leg syndrome ADHD (attention deficit hyperactivity disorder) Anxiety OCD (obsessive compulsive disorder) Hypertension GERD (gastroesophageal reflux disease) Vitamin D deficiency PCOS (polycystic ovarian syndrome) Body mass index [BMI]40.0-44.9, adult Irritable bowel syndrome with diarrhea Environmental and seasonal allergies Breast cancer screening by mammogram Dyslipidemia Gastritis Morbid obesity Hirsutism Androgenetic alopecia Telogen effluvium Heartburn Degenerative disc disease, lumbar Fibromyalgia Bipolar disorder Rosacea Acquired hypothyroidism Surgical History (Updated 03/29/24 @ 00:51 by Elke Cross MD) Hx of bariatric surgery Hx of shoulder surgery S/P laparoscopic sleeve gastrectomy Hx of cholecystectomy Hx of colonoscopy Miscarriage History of nasal surgery History of rotator cuff surgery Family History Father Diabetes mellitus Mother OCD (obsessive compulsive disorder) EITAN (generalized anxiety disorder) HTN (hypertension) Cancer Cervical cancer Family/Other FH: mental illness Maternal Grandmother EITAN (generalized anxiety disorder) Glaucoma Mental health disorder Maternal Grandfather Alzheimer disease Maternal Aunt Hypothyroidism Mental health disorder Paternal Grandmother Unknown family medical history Paternal Grandfather Unknown family medical history Sister Hypothyroidism Paternal Aunt Substance use disorder Maternal Uncle Substance use disorder Social History Household Members Other:: brother Housing: Apartment Are you a primary respiratory care practitioner to a significant other at home: No Do you presently have visiting nurse or other home services: No Alcohol intake: never Patient Tobacco Use Status: Former Tobacco user Quit Date: 2011 Tobacco use type: Cigarette Cigarettes Per Day: 20 Years Smoked: 3 e-Cigarette/Vaping Use: Never Used service: No Current occupational status: disabled Cognitive needs: No Hearing needs: No Vision needs: Yes Review of Systems Const All systems reviewed & are unremarkable except as noted in HPI and below Physical Exam Vital Signs: Last Vital Signs Pulse 101 H 03/27/24 11:49 BP 120/74 03/27/24 11:49 Pulse Ox 95 03/27/24 11:49 Oxygen Delivery Method Room Air 03/27/24 11:49 BMI result Body Mass Index 38.0 Assessment & Plan Assessment & Plan (1) Sacroiliac pain: Code(s): M53.3 - Sacrococcygeal disorders, not elsewhere classified Category: Medical (2) Positive DANIELE (antinuclear antibody): Code(s): R76.8 - Other specified abnormal immunological findings in serum Category: Medical (3) Bilateral knee pain: Code(s): M25.561 - Pain in right knee; M25.562 - Pain in left knee Category: Medical Qualifiers: Chronicity: chronic Qualified Code(s): M25.561 - Pain in right knee; M25.562 - Pain in left knee; G89.29 - Other chronic pain (4) Non-radiographic axial spondyloarthritis: Code(s): M45.A0 - Non-radiographic axial spondyloarthritis of unspecified sites in spine Category: Medical (5) Long-term use of immunosuppressant medication: Code(s): 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 This is helped previously with sacroiliac joint injections,. She has had these symptoms since since her 30s, has improved with physical activity and also has improved with NSAIDs. So many of these characteristics of her pain suggest spondyloarthritis or sacroiliitis rather than just mechanical back pain and fibromyalgia. There is some evidence certainly for fibromyalgia in her case. However, given the inflammatory symptoms, we started Leflunomide 20mg QD now x 2 months. She cannot see any improvement at this time. It may be beneficial to try patient on 1 month of TNF therapy and assess for improvement in SI joint to help determine if this is a SpondyloArthritis. We will consider that at next visit, after she has been on Leflunomide for 3 months. I discussed at length with the patient that given her Levoconvex scoliosis, this can be the main reason for her back pain. She will also get a RX for back brace. #Bilateral Knee Pain: She also had chronic knee pain, and reports being told she has OA but prior imaging does not support this. She does have crepitus in the knees. It seems the knee is feeling better today. She can continue with meloxicam. #Metal Mover Use:We discussed the possible side effects of Leflunomide to include but not limited N/V/D. She denies any side effects. We will monitor CBC, LFTs. Patient knows to hold medication for fevers, infection and non-healing wounds or cancer dx. #+DANIELE:Reviewing her history, found labs with +DANIELE in 2019. Recent additionally serology was negative for DEV, HLAB27 and ESR/CRP I spent 20 minutes reviewing chart, discussion treatment options, educating patient on disease process and documenting. Return for follow-up in 1 month Medications: Refilled pregabalin 75 mg PO BID 60 caps 3RF M79.7 - Fibromyalgia Coding Level of Care Code Est Pt Level 3 (35234) Diagnoses Sacroiliac pain M53.3 Positive DANIELE (antinuclear antibody) R76.8 Chronic pain of both knees M25.561; M25.562; G89.29 Chronicity: chronic Non-radiographic axial spondyloarthritis M45.A0 Long-term use of immunosuppressant medication Z79.60
[2024-03-27 11:49] VITALS: BP 120/74; PULSE 101; O2SAT 95; BMI 38.0
== END 2024-03-27 12:21 | disposition home or self-care (01) ==
PROVIDERS: PCP Internal Medicine; Visit Provider Nurse Practitioner Family
DX: M53.3 Sacrococcygeal disorders, not elsewhere classified (principal); R76.8 Other specified abnormal immunological findings in serum; M25.561 Pain in right knee; M25.562 Pain in left knee; G89.29 Other chronic pain; M45.A0 Non-radiographic axial spondyloarthritis of unspecified sites in spine; Z79.60 Long term (current) use of unspecified immunomodulators and immunosuppressants
CPT/HCPCS: 99213

== ENCOUNTER → 2024-03-27 11:21 | Outpatient (BNVA) | payer OTHER, SELFPAY | PROVIDERS: PCP Internal Medicine; Visit Provider Nurse Practitioner Family | DX: M53.3 Sacrococcygeal disorders, not elsewhere classified (principal); M25.561 Pain in right knee; M25.562 Pain in left knee; M45.A0 Non-radiographic axial spondyloarthritis of unspecified sites in spine; G89.29 Other chronic pain; R76.8 Other specified abnormal immunological findings in serum; Z79.60 Long term (current) use of unspecified immunomodulators and immunosuppressants | CPT/HCPCS: 99212 ==

== ENCOUNTER 2024-04-02 14:18 | Outpatient (AMB) | payer OTHER, SELFPAY ==
--- NOTE | 2024-06-17 15:47 | A.OFFWM_ITS ---
Intake Intake Visit Reasons: (TV) PO LSG 02/06/22 Allergies cat dander [CAT DANDER] Allergy (Mild, Verified 05/24/24 09:29) EYES- TEAR, ITCHY, face swells dog dander [DOG DANDER] Allergy (Mild, Verified 05/24/24 09:29) EYES- TEAR, ITCHY, hives duloxetine [From CYMBALTA] Adverse Reaction (Intermediate, Verified 05/24/24 09:29) VAGINAL BLEEDING PFSH Medical History (Updated 06/12/24 @ 16:11 by Jaz Bello) Bilateral knee pain Sacroiliac pain Positive DANIELE (antinuclear antibody) Refused influenza vaccine PTSD (post-traumatic stress disorder) Insomnia PONV (postoperative nausea and vomiting) Gastric ulcer Cholelithiasis Sacroiliitis Spondylosis of lumbar region without myelopathy or radiculopathy Scoliosis Goiter Restless leg syndrome ADHD (attention deficit hyperactivity disorder) Anxiety OCD (obsessive compulsive disorder) Hypertension GERD (gastroesophageal reflux disease) Vitamin D deficiency PCOS (polycystic ovarian syndrome) Body mass index [BMI]40.0-44.9, adult Irritable bowel syndrome with diarrhea Environmental and seasonal allergies Breast cancer screening by mammogram Dyslipidemia Gastritis Morbid obesity Hirsutism Telogen effluvium Heartburn Degenerative disc disease, lumbar Fibromyalgia Bipolar disorder Rosacea Acquired hypothyroidism Surgical History Hx of bariatric surgery Hx of shoulder surgery S/P laparoscopic sleeve gastrectomy Hx of cholecystectomy Hx of colonoscopy Miscarriage History of nasal surgery History of rotator cuff surgery Family History Father Diabetes mellitus Mother OCD (obsessive compulsive disorder) EITAN (generalized anxiety disorder) HTN (hypertension) Cancer Cervical cancer Family/Other FH: mental illness Maternal Grandmother EITAN (generalized anxiety disorder) Glaucoma Mental health disorder Maternal Grandfather Alzheimer disease Maternal Aunt Hypothyroidism Mental health disorder Paternal Grandmother Unknown family medical history Paternal Grandfather Unknown family medical history Sister Hypothyroidism Paternal Aunt Substance use disorder Maternal Uncle Substance use disorder Social History Household Members Other:: brother Housing: Apartment Are you a primary child day care center worker to a significant other at home: No Do you presently have visiting nurse or other home services: No Alcohol intake: never Patient Tobacco Use Status: Former Tobacco user Tobacco use type: Cigarette Cigarettes Per Day: 20 Years Smoked: 3 e-Cigarette/Vaping Use: Never Used service: No Current occupational status: disabled Cognitive needs: No Hearing needs: No Vision needs: Yes Behavioral Health Assessment Weight Management Therapy Therapy Notes Details EMDR complete session, SUDS 0 , patient did well. She is stable, continues to navigate new relationship. Assessment & Plan Assessment & Plan (1) ADHD (attention deficit hyperactivity disorder), combined type: Code(s): F90.2 - Attention-deficit hyperactivity disorder, combined type (2) Status post sleeve gastrectomy: Code(s): Z90.3 - Acquired absence of stomach [part of] (3) Posttraumatic stress disorder: Code(s): F43.10 - Post-traumatic stress disorder, unspecified Plan Patient struggles due to past complex trauma from childhood hunger and poverty, attachment issues with her mother, from her father, some addiction issues. Completed multiple sessions of EMDR with some improvement in symptoms. Patient had been experiencing weight gain post bariatric surgery, especially since new relationship that she is in. First time in 5 years she is in a stable and committed rel. Will continue with therapy group. Telehealth Telehealth Telehealth Platform: Telephone Location of provider rendering services: other Location of patient: address on file Patient Identification confirmed using: Name, : Yes Telehealth method: voice only Patient verbally consented to treatment: Yes Patient verbally consented to billing insurance company: Yes Patient informed of any privacy concerns related to visit: Yes Minutes spent on Phone/Video with Pt.: 45 Coding Level of Care Code Tele Psytx 45 mins ([id number]) Diagnoses ADHD (attention deficit hyperactivity disorder), combined type F90.2 Status post sleeve gastrectomy Z90.3 Posttraumatic stress disorder F43.10 Time Spent (min) 45
== END 2024-04-02 14:30 | disposition home or self-care (01) ==
PROVIDERS: PCP Internal Medicine; Visit Provider Counselor Mental Health
DX: F90.2 Attention-deficit hyperactivity disorder, combined type (principal); Z90.3 Acquired absence of stomach [part of]; F43.10 Post-traumatic stress disorder, unspecified
CPT/HCPCS: 90834

== ENCOUNTER → 2024-04-02 14:18 | Outpatient (BNVA) | payer OTHER, SELFPAY | PROVIDERS: PCP Internal Medicine; Visit Provider Counselor Mental Health ==

== ENCOUNTER → 2024-04-10 13:33 | Outpatient (BNVA) | payer OTHER, SELFPAY | PROVIDERS: PCP Internal Medicine; Visit Provider Counselor Mental Health ==

== ENCOUNTER 2024-04-17 17:15 | Outpatient (AMB) | payer OTHER, SELFPAY ==
--- NOTE | 2024-06-17 15:30 | A.OFFWM_ITS ---
Intake Intake Visit Reasons: group therapy Allergies cat dander [CAT DANDER] Allergy (Mild, Verified 05/24/24 09:29) EYES- TEAR, ITCHY, face swells dog dander [DOG DANDER] Allergy (Mild, Verified 05/24/24 09:29) EYES- TEAR, ITCHY, hives duloxetine [From CYMBALTA] Adverse Reaction (Intermediate, Verified 05/24/24 09:29) VAGINAL BLEEDING PFSH Medical History (Updated 06/12/24 @ 16:11 by Jaz Bello) Bilateral knee pain Sacroiliac pain Positive DANIELE (antinuclear antibody) Refused influenza vaccine PTSD (post-traumatic stress disorder) Insomnia PONV (postoperative nausea and vomiting) Gastric ulcer Cholelithiasis Sacroiliitis Spondylosis of lumbar region without myelopathy or radiculopathy Scoliosis Goiter Restless leg syndrome ADHD (attention deficit hyperactivity disorder) Anxiety OCD (obsessive compulsive disorder) Hypertension GERD (gastroesophageal reflux disease) Vitamin D deficiency PCOS (polycystic ovarian syndrome) Body mass index [BMI]40.0-44.9, adult Irritable bowel syndrome with diarrhea Environmental and seasonal allergies Breast cancer screening by mammogram Dyslipidemia Gastritis Morbid obesity Hirsutism Telogen effluvium Heartburn Degenerative disc disease, lumbar Fibromyalgia Bipolar disorder Rosacea Acquired hypothyroidism Surgical History Hx of bariatric surgery Hx of shoulder surgery S/P laparoscopic sleeve gastrectomy Hx of cholecystectomy Hx of colonoscopy Miscarriage History of nasal surgery History of rotator cuff surgery Family History Father Diabetes mellitus Mother OCD (obsessive compulsive disorder) EITAN (generalized anxiety disorder) HTN (hypertension) Cancer Cervical cancer Family/Other FH: mental illness Maternal Grandmother EITAN (generalized anxiety disorder) Glaucoma Mental health disorder Maternal Grandfather Alzheimer disease Maternal Aunt Hypothyroidism Mental health disorder Paternal Grandmother Unknown family medical history Paternal Grandfather Unknown family medical history Sister Hypothyroidism Paternal Aunt Substance use disorder Maternal Uncle Substance use disorder Social History Household Members Other:: brother Housing: Apartment Are you a primary chronic care nurse to a significant other at home: No Do you presently have visiting nurse or other home services: No Alcohol intake: never Patient Tobacco Use Status: Former Tobacco user Tobacco use type: Cigarette Cigarettes Per Day: 20 Years Smoked: 3 e-Cigarette/Vaping Use: Never Used service: No Current occupational status: disabled Cognitive needs: No Hearing needs: No Vision needs: Yes Behavioral Health Assessment Weight Management Therapy Therapy Notes Details Group therapy on getting back on track, top excuses, mindset shifts. Pt shared recent struggles, was engaged and supportive to others Assessment & Plan Assessment & Plan (1) Adjustment disorder with depressed mood: Code(s): F43.21 - Adjustment disorder with depressed mood Plan Patient is adjusting to recent move away from her place to [facility] with her boyfriend. She has been sleeping more and feeling sadness/grief. She was encouraged to reach out and make an appt with therapist at [facility] as this is her last appt with this junior underwriter. She has done extensive mental health work over the past few years including EMDR. Coding Level of Care Code Grp Psych ([id number]) Diagnoses Adjustment disorder with depressed mood F43.21 Time Spent (min) 60
== END 2024-04-17 18:15 | disposition home or self-care (01) ==
PROVIDERS: PCP Internal Medicine; Visit Provider Counselor Mental Health
DX: F43.21 Adjustment disorder with depressed mood (principal)

== ENCOUNTER → 2024-04-17 19:52 | Outpatient (BNVA) | payer OTHER, SELFPAY | PROVIDERS: PCP Internal Medicine; Visit Provider Counselor Mental Health | DX: F90.2 Attention-deficit hyperactivity disorder, combined type (principal); F43.21 Adjustment disorder with depressed mood; F43.10 Post-traumatic stress disorder, unspecified; Z90.3 Acquired absence of stomach [part of] | CPT/HCPCS: 90853 ==

== ENCOUNTER 2024-04-23 12:50 | Outpatient (AMB) | payer OTHER, SELFPAY ==
--- NOTE | 2024-04-23 12:51 | A.OFFPC_ITS ---
Vital Signs 04/23/24 12:52 Height 5 ft 3 in Weight 204 lb BMI 36.1 BP 116/80 Blood Pressure Location Rt brachial Position Sitting Pulse 85 Pulse Source Pulse Oximeter Pulse Oximetry (%) 98 Oxygen Delivery Method Room Air Intake Visit Reasons: Follow-up weight after starting Ozempic Intake Note: pt here for 5 wk f/u weight loss Allergies cat dander [CAT DANDER] Allergy (Mild, Verified 04/23/24 13:26) EYES- TEAR, ITCHY, face swells dog dander [DOG DANDER] Allergy (Mild, Verified 04/23/24 13:26) EYES- TEAR, ITCHY, hives duloxetine [From CYMBALTA] Adverse Reaction (Intermediate, Verified 04/23/24 13:26) VAGINAL BLEEDING Medication List - Last Reconciled 04/23/24 by Elke Cross MD acetaminophen ER (Tylenol 8 Hour) 650 mg PO Q12H albuterol sulfate 90 mcg/actuation (Ventolin HFA) 1 - 2 puffs inhalation Q4H PRN alclometasone 0.05% appl topical BID PRN back brace As directed benzoyl peroxide 10% topical buspirone 5 mg PO TID calcium carbonate-vitamin D3 250 mg-3.125 mcg (125 unit) 1 tab PO BID cariprazine (Vraylar) 3 mg PO DAILY cetirizine 10 mg PO DAILY PRN clindamycin phosphate 1% topical BID clonazepam mg PO ONCE PRN dextroamphetamine-amphetamine 25 mg ER (Adderall XR) 50 mg PO ONCE diclofenac sodium 1% topical fluticasone propionate 50 mcg/actuation 2 sprays intranasal DAILY ivermectin 1% (Soolantra) 1 appl topical DAILY leflunomide 20 mg PO DAILY levothyroxine 50 mcg PO DAILY 30 days meloxicam 15 mg PO DAILY metformin 500 mg PO BID 30 days multivitamin 1 tab PO DAILY pregabalin 75 mg PO BID semaglutide (Ozempic) 0.25 mg (0.368 mL) subcut QWEEK 1 month spironolactone 50 mg PO DAILY vilazodone 40 mg PO DAILY walker (Ultra-Light Rollator misc) As directed, with seat Tobacco use date assessed: 04/23/24 Dental Screening Dental Screen Date: 04/23/24 Did you have a dental visit in the last 12 months?: Yes Did you have a dental problem in the last 6 months where you did not have access to dental care?: No Was dental information given to patient?: Patient has dentist HPI HPI Comments History of Present Illness Details 43-year-old lady with PCOS, currently on metformin, has obesity, history of ADHD, PTSD, OCD, GERD, dyslipidemia bipolar disorder and hypo thyroidism, here today for follow-up on her weight loss after starting Ozempic. Only on 0.25 mg sub cutaneously given once a week. Had some nausea on the her an initial dose but which subsequently resolved, has been combining it with diet and exercise, and states that she has lost approximately 10 lb in 1 month since starting Ozempic. Would like to see if she can go higher on her dose to 0.5 mg weekly [facility] Medical History (Updated 04/23/24 @ 13:37 by Elke Cross MD) Non-radiographic axial spondyloarthritis Bilateral knee pain Sacroiliac pain Positive DANIELE (antinuclear antibody) Refused influenza vaccine PTSD (post-traumatic stress disorder) Insomnia PONV (postoperative nausea and vomiting) Gastric ulcer Cholelithiasis Sacroiliitis Spondylosis of lumbar region without myelopathy or radiculopathy Scoliosis Goiter Restless leg syndrome ADHD (attention deficit hyperactivity disorder) Anxiety OCD (obsessive compulsive disorder) Hypertension GERD (gastroesophageal reflux disease) Vitamin D deficiency PCOS (polycystic ovarian syndrome) Body mass index [BMI]40.0-44.9, adult Irritable bowel syndrome with diarrhea Environmental and seasonal allergies Breast cancer screening by mammogram Dyslipidemia Gastritis Morbid obesity Hirsutism Telogen effluvium Heartburn Degenerative disc disease, lumbar Fibromyalgia Bipolar disorder Rosacea Acquired hypothyroidism Surgical History Hx of bariatric surgery Hx of shoulder surgery S/P laparoscopic sleeve gastrectomy Hx of cholecystectomy Hx of colonoscopy Miscarriage History of nasal surgery History of rotator cuff surgery Family History Father Diabetes mellitus Mother OCD (obsessive compulsive disorder) EITAN (generalized anxiety disorder) HTN (hypertension) Cancer Cervical cancer Family/Other FH: mental illness Maternal Grandmother EITAN (generalized anxiety disorder) Glaucoma Mental health disorder Maternal Grandfather Alzheimer disease Maternal Aunt Hypothyroidism Mental health disorder Paternal Grandmother Unknown family medical history Paternal Grandfather Unknown family medical history Sister Hypothyroidism Paternal Aunt Substance use disorder Maternal Uncle Substance use disorder Social History Household Members Other:: brother Housing: Apartment Are you a primary cardiac care unit nurse to a significant other at home: No Do you presently have visiting nurse or other home services: No Alcohol intake: never Patient Tobacco Use Status: Former Tobacco user Tobacco use type: Cigarette Cigarettes Per Day: 20 Years Smoked: 3 e-Cigarette/Vaping Use: Never Used service: No Current occupational status: disabled Cognitive needs: No Hearing needs: No Vision needs: Yes Questionnaire Thrive Questionnaire Date Thrive assessed: 03/20/24 AUDIT C Alcohol Use Questionnaire (AUDIT-C) 1. How often do you have a drink containing alcohol?: Never Total Score: 0 EITAN-7 AMB Questionnaire EITAN-7 Date EITAN - 7 assessed: 03/20/24 Source: Developed by Drs. Parviz Lora, Ghazala Chang, Ryan Holland and colleagues, with an educational bryan from [employer]. Review of Systems Const All systems reviewed & are unremarkable except as noted in HPI and below Physical exam (Primary Care) Vital Signs: Last Vital Signs Pulse 85 04/23/24 12:52 BP 116/80 04/23/24 12:52 Pulse Ox 98 04/23/24 12:52 Oxygen Delivery Method Room Air 04/23/24 12:52 BMI result Body Mass Index 36.1 Tobacco/Smoking Status: Tobacco use Status Tobacco use date assessed 04/23/24 04/23/24 13:02 Patient Tobacco Use Status Former Tobacco user 04/23/24 13:02 Tobacco use type Cigarette 04/23/24 13:02 e-Cigarette/Vaping Use Never Used 04/23/24 13:02 Thrive Assessment: Date of Thrive Assessment Date Thrive assessed 03/20/24 04/23/24 13:02 Const Other: Alert oriented x3, no acute distress noted, ambulatory with normal gait HENMT Mouth: oropharynx normal and moist mucous membranes Neck Neck: Yes full ROM, Yes no lymphadenopathy and Yes supple Resp Auscultation: clear to auscultation bilaterally Cardio Rate: regular rate Rhythm: regular rhythm Heart sounds: S1 normal heart sound present and S2 normal heart sound present GI Palpation (GI): Soft to palpation, nontender and no guarding Neuro General: tone normal, moves all extremities and no focal motor deficits Extrem General: Yes full ROM, Yes no joint enlargement, Yes no clubbing, cyanosis or edema, Yes no pedal edema and Yes no calf tenderness Assessment and Plan Assessment & Plan (1) Obesity: Code(s): E66.9 - Obesity, unspecified Qualifiers: Obesity type: due to excess calories Obesity classification: adult class 2 (BMI 35 - 39.9) Serious obesity comorbidity presence: without serious comorbidity Body mass index: BMI 38.0-38.9 Qualified Code(s): E66.09 - Other obesity due to excess calories; Z68.38 - Body mass index [BMI] 38.0-38.9, adult Plan: Has lost 10 lb since starting Ozempic proximally 5 weeks ago. Will continue on Ozempic and dose increased to 0.5 mg given subcutaneously once a week. Goal weight is 175 lb continue with adherence to healthy eating habits and getting regular exercise. Will see her back for follow-up in 2 months, compressive metabolic panel ordered today as well as hemoglobin a 1 (2) Acquired hypothyroidism: Code(s): E03.9 - Hypothyroidism, unspecified Plan: Ordered TSH and free T4 check, in the meantime currently on levothyroxine 50 mcg taken once a day in a.m. (3) Dyslipidemia: Code(s): E78.5 - Hyperlipidemia, unspecified Plan: Fasting lipid panel ordered continue with adherence to healthy eating habits and regular exercise (4) PCOS (polycystic ovarian syndrome): Code(s): E28.2 - Polycystic ovarian syndrome Plan: currently on metformin Orders: Orders Thyroid Stimulating Hormone 04/23/24 E03.9 - Hypothyroidism, unspecified, E28.2 - Polycystic ovarian syndrome, E78.5 - Hyperlipidemia, unspecified Hemoglobin A1c 04/23/24 E03.9 - Hypothyroidism, unspecified, E28.2 - Polycystic ovarian syndrome, E78.5 - Hyperlipidemia, unspecified Lipid Panel 04/23/24 E03.9 - Hypothyroidism, unspecified, E28.2 - Polycystic ovarian syndrome, E78.5 - Hyperlipidemia, unspecified Comprehensive [place]. Panel Fast 04/23/24 E03.9 - Hypothyroidism, unspecified, E28.2 - Polycystic ovarian syndrome, E78.5 - Hyperlipidemia, unspecified Free T4 (Free Thyroxine) 04/23/24 E03.9 - Hypothyroidism, unspecified, E28.2 - Polycystic ovarian syndrome, E78.5 - Hyperlipidemia, unspecified Medications: Changed From semaglutide (Ozempic) for 4 weeks 0.25 mg (0.368 mL) subcut QWEEK 1 month 1.84 mL 0RF E66.9 - Obesity, unspecified To semaglutide (Ozempic) for 4 weeks 0.5 mg (0.736 mL) subcut QWEEK 30 days 3 mL 2RF E66.9 - Obesity, unspecified Coding Level of Care Code Est Pt Level 4 (00901) Complex EM visit Add On G2211 Diagnoses Class 2 obesity due to excess calories without serious comorbidity with body mass index (BMI) of 38.0 to 38.9 in adult E66.09; Z68.38 Obesity type: due to excess calories Obesity classification: adult class 2 (BMI 35 - 39.9) Serious obesity comorbidity presence: without serious comorbidity Body mass index: BMI 38.0-38.9 Acquired hypothyroidism E03.9 Dyslipidemia E78.5 PCOS (polycystic ovarian syndrome) E28.2
[2024-04-23 12:52] VITALS: BP 116/80; PULSE 85; O2SAT 98; BMI 36.1
== END 2024-04-23 13:45 | disposition home or self-care (01) ==
PROVIDERS: PCP Internal Medicine; Visit Provider Internal Medicine
DX: E03.9 Hypothyroidism, unspecified (principal); E66.09 Other obesity due to excess calories; Z68.38 Body mass index [BMI] 38.0-38.9, adult; E78.5 Hyperlipidemia, unspecified; E28.2 Polycystic ovarian syndrome
CPT/HCPCS: 99214; G2211

== ENCOUNTER 2024-04-24 13:37 | Outpatient (AMB) | payer OTHER, SELFPAY ==
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
== END 2024-04-24 14:30 ==
LOC: HO.HBST 13:37
PROVIDERS: PCP Internal Medicine; Visit Provider Counselor Mental Health
DX: F90.2 Attention-deficit hyperactivity disorder, combined type (principal); Z90.3 Acquired absence of stomach [part of]; F43.10 Post-traumatic stress disorder, unspecified
CPT/HCPCS: 90834

== ENCOUNTER → 2024-04-24 13:37 | Outpatient (BNVA) | payer OTHER, SELFPAY | PROVIDERS: PCP Internal Medicine; Visit Provider Counselor Mental Health ==

== ENCOUNTER 2024-05-01 14:00 | Outpatient (AMB) | payer OTHER, SELFPAY ==
--- NOTE | 2024-05-01 14:49 | A.OFFWM_ITS ---
Intake Intake Visit Reasons: (TV) PO LSG 02/06/22 Allergies cat dander [CAT DANDER] Allergy (Mild, Verified 04/23/24 13:26) EYES- TEAR, ITCHY, face swells dog dander [DOG DANDER] Allergy (Mild, Verified 04/23/24 13:26) EYES- TEAR, ITCHY, hives duloxetine [From CYMBALTA] Adverse Reaction (Intermediate, Verified 04/23/24 13:26) VAGINAL BLEEDING PFSH Medical History (Updated 04/23/24 @ 13:37 by Elke Cross MD) Non-radiographic axial spondyloarthritis Bilateral knee pain Sacroiliac pain Positive DANIELE (antinuclear antibody) Refused influenza vaccine PTSD (post-traumatic stress disorder) Insomnia PONV (postoperative nausea and vomiting) Gastric ulcer Cholelithiasis Sacroiliitis Spondylosis of lumbar region without myelopathy or radiculopathy Scoliosis Goiter Restless leg syndrome ADHD (attention deficit hyperactivity disorder) Anxiety OCD (obsessive compulsive disorder) Hypertension GERD (gastroesophageal reflux disease) Vitamin D deficiency PCOS (polycystic ovarian syndrome) Body mass index [BMI]40.0-44.9, adult Irritable bowel syndrome with diarrhea Environmental and seasonal allergies Breast cancer screening by mammogram Dyslipidemia Gastritis Morbid obesity Hirsutism Telogen effluvium Heartburn Degenerative disc disease, lumbar Fibromyalgia Bipolar disorder Rosacea Acquired hypothyroidism Surgical History Hx of bariatric surgery Hx of shoulder surgery S/P laparoscopic sleeve gastrectomy Hx of cholecystectomy Hx of colonoscopy Miscarriage History of nasal surgery History of rotator cuff surgery Family History Father Diabetes mellitus Mother OCD (obsessive compulsive disorder) EITAN (generalized anxiety disorder) HTN (hypertension) Cancer Cervical cancer Family/Other FH: mental illness Maternal Grandmother EITAN (generalized anxiety disorder) Glaucoma Mental health disorder Maternal Grandfather Alzheimer disease Maternal Aunt Hypothyroidism Mental health disorder Paternal Grandmother Unknown family medical history Paternal Grandfather Unknown family medical history Sister Hypothyroidism Paternal Aunt Substance use disorder Maternal Uncle Substance use disorder Social History Household Members Other:: brother Housing: Apartment Are you a primary medicare sales representative to a significant other at home: No Do you presently have visiting nurse or other home services: No Alcohol intake: never Patient Tobacco Use Status: Former Tobacco user Tobacco use type: Cigarette Cigarettes Per Day: 20 Years Smoked: 3 e-Cigarette/Vaping Use: Never Used service: No Current occupational status: disabled Cognitive needs: No Hearing needs: No Vision needs: Yes Behavioral Health Assessment Weight Management Therapy Therapy Notes Details FLASH session on past memories of being bullied in school and humiliated by mom. Assessment & Plan Assessment & Plan (1) ADHD (attention deficit hyperactivity disorder), combined type: Code(s): F90.2 - Attention-deficit hyperactivity disorder, combined type (2) Status post sleeve gastrectomy: Code(s): Z90.3 - Acquired absence of stomach [part of] (3) Posttraumatic stress disorder: Code(s): F43.10 - Post-traumatic stress disorder, unspecified Plan Patient struggles due to past complex trauma from childhood hunger and poverty, attachment issues with her mother, from her father, some addiction issues. Completed multiple sessions of EMDR with some improvement in symptoms. Patient had been experiencing weight gain post bariatric surgery, especially since new relationship that she is in. First time in 5 years she is in a stable and committed rel. Will continue with therapy group and FLASH Telehealth Telehealth Telehealth Platform: Other (please specify) (zoom) Location of provider rendering services: other Location of patient: address on file Patient Identification confirmed using: Name, : Yes Telehealth method: video Patient verbally consented to treatment: Yes Patient verbally consented to billing insurance company: Yes Patient informed of any privacy concerns related to visit: Yes Minutes spent on Phone/Video with Pt.: 45 Coding Level of Care Code Tele Psytx 45 mins (69013) Diagnoses ADHD (attention deficit hyperactivity disorder), combined type F90.2 Status post sleeve gastrectomy Z90.3 Posttraumatic stress disorder F43.10 Time Spent (min) 45
== END 2024-05-01 15:47 | disposition home or self-care (01) ==
LOC: HO.HBST 14:50
PROVIDERS: PCP Internal Medicine; Visit Provider Counselor Mental Health
DX: F90.2 Attention-deficit hyperactivity disorder, combined type (principal); Z90.3 Acquired absence of stomach [part of]; F43.10 Post-traumatic stress disorder, unspecified
CPT/HCPCS: 90834

== ENCOUNTER → 2024-05-01 14:00 | Outpatient (BNVA) | payer OTHER, SELFPAY | PROVIDERS: PCP Internal Medicine; Visit Provider Counselor Mental Health ==

== ENCOUNTER 2024-05-06 10:33 | Outpatient (AMB) | payer OTHER, SELFPAY ==
--- NOTE | 2024-05-06 09:10 | A.OFFVIS_ITS ---
VS Expanded 05/06/24 09:11 Height 5 ft 3 in Weight 202 lb 12.8 oz BMI 35.9 Intake Visit Reasons: (TV) PO LSG 02/06/22 Allergies cat dander [CAT DANDER] Allergy (Mild, Verified 04/23/24 13:26) EYES- TEAR, ITCHY, face swells dog dander [DOG DANDER] Allergy (Mild, Verified 04/23/24 13:26) EYES- TEAR, ITCHY, hives duloxetine [From CYMBALTA] Adverse Reaction (Intermediate, Verified 04/23/24 13:26) VAGINAL BLEEDING HPI Comments Details: 43-year-old female returns to the office today in follow-up. She is approximate ly 2 years 3 months status post sleeve gastrectomy performed on 02/06/2022. She had been followed by our registered dietitian, Jazmín in the past. Weight today is 202.8 lb with a BMI of 35.9. She states she has a ABURTO today but wanted to keep the appointment. Finished PT and f/u with ortho this week. Once cleared for exercise she will resume. LSG with Dr. Easley 02/16/22 Preop weight (02/11/2022) 205# weight at 3 MO 176# weight at 6 MO PO 173 weight weight (12/09/22) 188# Weight in Dec 184 Goal 140# meal plan: 6 am 2 eggs w vegetables, no toast, 4 oz coffee w tsp 11/21 and 11/21 9-10 am shake, 1 scoop in 8 oz almond milk noon Orgain shake 1 scoop in 8 oz almond milk 3 pm another shake 6 pm 7 forks of protein and 7 forks of vegetables, no rice or beans. 730 pm fruit (an apple, 3/4 cut fresh berries, orange, kiwi, pear) Drinkin-32 oz water 20 oz gatorade zero Exercise plan: none stationary bike at home just joined [facility] Medical History (Updated 04/23/24 @ 13:37 by Elke Cross MD) Non-radiographic axial spondyloarthritis Bilateral knee pain Sacroiliac pain Positive DANIELE (antinuclear antibody) Refused influenza vaccine PTSD (post-traumatic stress disorder) Insomnia PONV (postoperative nausea and vomiting) Gastric ulcer Cholelithiasis Sacroiliitis Spondylosis of lumbar region without myelopathy or radiculopathy Scoliosis Goiter Restless leg syndrome ADHD (attention deficit hyperactivity disorder) Anxiety OCD (obsessive compulsive disorder) Hypertension GERD (gastroesophageal reflux disease) Vitamin D deficiency PCOS (polycystic ovarian syndrome) Body mass index [BMI]40.0-44.9, adult Irritable bowel syndrome with diarrhea Environmental and seasonal allergies Breast cancer screening by mammogram Dyslipidemia Gastritis Morbid obesity Hirsutism Telogen effluvium Heartburn Degenerative disc disease, lumbar Fibromyalgia Bipolar disorder Rosacea Acquired hypothyroidism Surgical History Hx of bariatric surgery Hx of shoulder surgery S/P laparoscopic sleeve gastrectomy Hx of cholecystectomy Hx of colonoscopy Miscarriage History of nasal surgery History of rotator cuff surgery Family History Father Diabetes mellitus Mother OCD (obsessive compulsive disorder) EITAN (generalized anxiety disorder) HTN (hypertension) Cancer Cervical cancer Family/Other FH: mental illness Maternal Grandmother EITAN (generalized anxiety disorder) Glaucoma Mental health disorder Maternal Grandfather Alzheimer disease Maternal Aunt Hypothyroidism Mental health disorder Paternal Grandmother Unknown family medical history Paternal Grandfather Unknown family medical history Sister Hypothyroidism Paternal Aunt Substance use disorder Maternal Uncle Substance use disorder Social History Household Members Other:: brother Housing: Apartment Are you a primary childcare attendant to a significant other at home: No Do you presently have visiting nurse or other home services: No Alcohol intake: never Patient Tobacco Use Status: Former Tobacco user Tobacco use type: Cigarette Cigarettes Per Day: 20 Years Smoked: 3 e-Cigarette/Vaping Use: Never Used service: No Current occupational status: disabled Cognitive needs: No Hearing needs: No Vision needs: Yes Telehealth Telehealth Telehealth Platform: Telephone Location of provider rendering services: practice address Location of patient: address on file Patient Identification confirmed using: Name, : Yes Telehealth method: voice only Patient verbally consented to treatment: Yes Patient verbally consented to billing insurance company: Yes Patient informed of any privacy concerns related to visit: Yes Minutes spent on Phone/Video with Pt.: 10 Assessment & Plan Assessment & Plan (1) Obesity: Code(s): E66.9 - Obesity, unspecified Category: Medical Qualifiers: Obesity type: due to excess calories Obesity classification: adult class 2 (BMI 35 - 39.9) Serious obesity comorbidity presence: without serious comorbidity Body mass index: BMI 38.0-38.9 Qualified Code(s): E66.09 - Other obesity due to excess calories; Z68.38 - Body mass index [BMI] 38.0-38.9, adult Plan: Encouraged to continue to follow meal plan. Encouraged to resume exercise once she is cleared by orthopedics for ankle injury. Encouraged to return to the [facility] to use the pool. We will have her return to the office for her follow-up in July with the understanding that she will call sooner should she have any questions or concerns. She has the capacity and was encouraged text me weekly with her weight from her scale.
[2024-05-06 09:11] VITALS: BMI 35.9
== END 2024-05-06 10:35 | disposition home or self-care (01) ==
LOC: HO.HBS 10:33
PROVIDERS: PCP Internal Medicine; Visit Provider Physician Assistant Surgical
DX: E66.09 Other obesity due to excess calories (principal); Z68.38 Body mass index [BMI] 38.0-38.9, adult
CPT/HCPCS: 99212

== ENCOUNTER → 2024-05-06 10:33 | Outpatient (BNVA) | payer OTHER, SELFPAY | PROVIDERS: PCP Internal Medicine; Visit Provider Physician Assistant Surgical ==

== ENCOUNTER 2024-05-15 13:11 | Outpatient (AMB) | payer OTHER, SELFPAY ==
--- NOTE | 2024-06-17 11:31 | MHC.WMTHER ---
Intake Intake Visit Reasons: (TV) PO LSG 02/06/22 Allergies cat dander [CAT DANDER] Allergy (Mild, Verified 05/24/24 09:29) EYES- TEAR, ITCHY, face swells dog dander [DOG DANDER] Allergy (Mild, Verified 05/24/24 09:29) EYES- TEAR, ITCHY, hives duloxetine [From CYMBALTA] Adverse Reaction (Intermediate, Verified 05/24/24 09:29) VAGINAL BLEEDING PFSH Medical History (Updated 06/12/24 @ 16:11 by Jaz Bello) Bilateral knee pain Sacroiliac pain Positive DANIELE (antinuclear antibody) Refused influenza vaccine PTSD (post-traumatic stress disorder) Insomnia PONV (postoperative nausea and vomiting) Gastric ulcer Cholelithiasis Sacroiliitis Spondylosis of lumbar region without myelopathy or radiculopathy Scoliosis Goiter Restless leg syndrome ADHD (attention deficit hyperactivity disorder) Anxiety OCD (obsessive compulsive disorder) Hypertension GERD (gastroesophageal reflux disease) Vitamin D deficiency PCOS (polycystic ovarian syndrome) Body mass index [BMI]40.0-44.9, adult Irritable bowel syndrome with diarrhea Environmental and seasonal allergies Breast cancer screening by mammogram Dyslipidemia Gastritis Morbid obesity Hirsutism Telogen effluvium Heartburn Degenerative disc disease, lumbar Fibromyalgia Bipolar disorder Rosacea Acquired hypothyroidism Surgical History Hx of bariatric surgery Hx of shoulder surgery S/P laparoscopic sleeve gastrectomy Hx of cholecystectomy Hx of colonoscopy Miscarriage History of nasal surgery History of rotator cuff surgery Family History Father Diabetes mellitus Mother OCD (obsessive compulsive disorder) EITAN (generalized anxiety disorder) HTN (hypertension) Cancer Cervical cancer Family/Other FH: mental illness Maternal Grandmother EITAN (generalized anxiety disorder) Glaucoma Mental health disorder Maternal Grandfather Alzheimer disease Maternal Aunt Hypothyroidism Mental health disorder Paternal Grandmother Unknown family medical history Paternal Grandfather Unknown family medical history Sister Hypothyroidism Paternal Aunt Substance use disorder Maternal Uncle Substance use disorder Social History Household Members Other:: brother Housing: Apartment Are you a primary customer care representative to a significant other at home: No Do you presently have visiting nurse or other home services: No Alcohol intake: never Patient Tobacco Use Status: Former Tobacco user Tobacco use type: Cigarette Cigarettes Per Day: 20 Years Smoked: 3 e-Cigarette/Vaping Use: Never Used service: No Current occupational status: disabled Cognitive needs: No Hearing needs: No Vision needs: Yes Behavioral Health Assessment Weight Management Therapy Therapy Notes Details Pt discussed upcoming birthday, her mother coming to visit, and also moving into her boyfriends home in [place], [place]. Jaz reported feeling nervous, anxious, and some stress. Has been living on her own for many years, and how this will be a big move for her. She talked about continuing to manage her binge eating behavior with medication which has been a big relief for her. Assessment & Plan Assessment & Plan (1) Adjustment disorder with depressed mood: Code(s): F43.21 - Adjustment disorder with depressed mood Plan Patient has struggled with significant weight gain post bariatric surgery due to emotional health and binge eating behaviors. She has since started a medication for weight loss which has completed eliminated binge eating and obsessive thoughts of food. Telehealth Telehealth Telehealth Platform: Telephone Location of provider rendering services: other Location of patient: address on file Patient Identification confirmed using: Name, : Yes Telehealth method: voice only Patient verbally consented to treatment: Yes Patient verbally consented to billing insurance company: Yes Patient informed of any privacy concerns related to visit: Yes Minutes spent on Phone/Video with Pt.: 45 Coding Level of Care Code Tele Psytx 45 mins ([id number]) Diagnoses Adjustment disorder with depressed mood F43.21 Time Spent (min) 45
== END 2024-05-15 13:30 | disposition home or self-care (01) ==
LOC: HO.HBST 13:11
PROVIDERS: PCP Internal Medicine; Visit Provider Counselor Mental Health
DX: F43.21 Adjustment disorder with depressed mood (principal)
CPT/HCPCS: 90834

== ENCOUNTER → 2024-05-15 13:11 | Outpatient (BNVA) | payer OTHER, SELFPAY | PROVIDERS: PCP Internal Medicine; Visit Provider Counselor Mental Health ==

== ENCOUNTER 2024-05-16 07:27 | Outpatient (REF) | payer OTHER, SELFPAY ==
[2024-05-16 08:42] LABS: Estimated Average Glucose 97 mg/dL
[2024-05-16 09:02] LABS: Alanine Aminotransferase 16 U/L (0-31); Albumin Level 4.4 g/dL (3.5-5.0); Alkaline Phosphatase 54 U/L (39-117); Anion Gap 12 (12-20); Aspartate Amino Transferase 16 U/L (5-31); Bilirubin Total 0.4 mg/dL (0.0-1.0); Blood Urea Nitrogen 19 mg/dL (9-16); Calcium 9.9 mg/dL (8.4-10.2); Carbon Dioxide 27 mmol/L (22-29); Chloride 106 mmol/L (96-108); Cholesterol 210 mg/dL (<200); Estimated Glomerular Filt Rate > 60; Glucose Fasting 89 mg/dL (60-99); HDL Cholesterol 59 mg/dL (>40); LDL Cholesterol Calculated 134 mg/dL (<100); Potassium 4.1 mmol/L (3.3-5.1); Sodium 141 mmol/L (135-145); Total Protein 7.3 g/dL (6.5-8.0); Triglycerides 87 mg/dL (<150)
[2024-05-16 09:23] LABS: Free T4 (Free Thyroxine) 1.03 ng/dL (0.71-1.85); Thyroid Stimulating Hormone 0.88 uIU/mL (0.32-4.0)
== END 2024-05-16 07:28 | disposition home or self-care (01) ==
LOC: HO.LAB 07:27
PROVIDERS: PCP Internal Medicine; Visit Provider Internal Medicine
DX: E28.2 Polycystic ovarian syndrome (principal); E78.5 Hyperlipidemia, unspecified; E03.9 Hypothyroidism, unspecified
CPT/HCPCS: 36415; 80053; 80061; 83036; 84439; 84443

== ENCOUNTER 2024-05-24 09:23 | Outpatient (AMB) | payer OTHER, SELFPAY ==
[2024-05-24 09:26] VITALS: BP 118/80; PULSE 85; O2SAT 97; BMI 35.8
--- NOTE | 2024-05-24 09:26 | A.OFFVIS_ITS ---
Vital Signs 05/24/24 09:26 Height 5 ft 3 in Weight 202 lb 2.622 oz BMI 35.8 BP 118/80 Blood Pressure Location Rt brachial Position Sitting Pulse 85 Pulse Source Pulse Oximeter Pulse Oximetry (%) 97 Oxygen Delivery Method Room Air Intake Visit Reasons: AXSPA/LBP Intake Note: Patient last seen by Marija Sanford on 03/27/24 presents today for follow up. Allergies cat dander [CAT DANDER] Allergy (Mild, Verified 05/24/24 09:29) EYES- TEAR, ITCHY, face swells dog dander [DOG DANDER] Allergy (Mild, Verified 05/24/24 09:29) EYES- TEAR, ITCHY, hives duloxetine [From CYMBALTA] Adverse Reaction (Intermediate, Verified 05/24/24 09:29) VAGINAL BLEEDING Medication List - Last Reconciled 05/24/24 by Sergio Taylor MD acetaminophen ER (Tylenol 8 Hour) 650 mg PO Q12H albuterol sulfate 90 mcg/actuation (Ventolin HFA) 1 - 2 puffs inhalation Q4H PRN alclometasone 0.05% appl topical BID PRN back brace As directed benzoyl peroxide 10% topical buspirone 5 mg PO TID calcium carbonate-vitamin D3 250 mg-3.125 mcg (125 unit) 1 tab PO BID cariprazine (Vraylar) 3 mg PO DAILY cetirizine 10 mg PO DAILY PRN clindamycin phosphate 1% topical BID clonazepam mg PO ONCE PRN dextroamphetamine-amphetamine 25 mg ER (Adderall XR) 50 mg PO ONCE diclofenac sodium 1% topical fluticasone propionate 50 mcg/actuation 2 sprays intranasal DAILY ivermectin 1% (Soolantra) 1 appl topical DAILY levothyroxine 50 mcg PO DAILY 30 days metformin 500 mg PO BID 30 days multivitamin 1 tab PO DAILY pregabalin 75 mg PO BID semaglutide (Ozempic) 0.5 mg (0.736 mL) subcut QWEEK 30 days spironolactone 50 mg PO DAILY vilazodone 40 mg PO DAILY walker (Ultra-Light Rollator misc) As directed, with seat HPI Comments Details: This is a 44-year-old female with fibromyalgia who presents for follow-up. Last few visits there was suspicion of radiographic axial spa by Marija Ramírez and patient was prescribed leflunomide. She took it for 3 months without much improvement. It was discontinued. She was also prescribed meloxicam 15 mg daily, she did not take it regularly, she took it about 3 times a week without much improvement. Patient states that the only medication that has helped her throughout the years was the Lyrica. Today she is complaining of bilateral hip pain, the pain is in the buttock area lower back and towards the outside of the hip, it has a little more severe on the right. She states that she had SI joint injection a couple of months ago but she does not remember which side. It was done in [facility]. [facility] Medical History (Updated 05/24/24 @ 10:06 by Sergio Taylor MD) Bilateral knee pain Sacroiliac pain Positive DANIELE (antinuclear antibody) Refused influenza vaccine PTSD (post-traumatic stress disorder) Insomnia PONV (postoperative nausea and vomiting) Gastric ulcer Cholelithiasis Sacroiliitis Spondylosis of lumbar region without myelopathy or radiculopathy Scoliosis Goiter Restless leg syndrome ADHD (attention deficit hyperactivity disorder) Anxiety OCD (obsessive compulsive disorder) Hypertension GERD (gastroesophageal reflux disease) Vitamin D deficiency PCOS (polycystic ovarian syndrome) Body mass index [BMI]40.0-44.9, adult Irritable bowel syndrome with diarrhea Environmental and seasonal allergies Breast cancer screening by mammogram Dyslipidemia Gastritis Morbid obesity Hirsutism Telogen effluvium Heartburn Degenerative disc disease, lumbar Fibromyalgia Bipolar disorder Rosacea Acquired hypothyroidism Surgical History Hx of bariatric surgery Hx of shoulder surgery S/P laparoscopic sleeve gastrectomy Hx of cholecystectomy Hx of colonoscopy Miscarriage History of nasal surgery History of rotator cuff surgery Family History Father Diabetes mellitus Mother OCD (obsessive compulsive disorder) EITAN (generalized anxiety disorder) HTN (hypertension) Cancer Cervical cancer Family/Other FH: mental illness Maternal Grandmother EITAN (generalized anxiety disorder) Glaucoma Mental health disorder Maternal Grandfather Alzheimer disease Maternal Aunt Hypothyroidism Mental health disorder Paternal Grandmother Unknown family medical history Paternal Grandfather Unknown family medical history Sister Hypothyroidism Paternal Aunt Substance use disorder Maternal Uncle Substance use disorder Social History Household Members Other:: brother Housing: Apartment Are you a primary transitional care liaison to a significant other at home: No Do you presently have visiting nurse or other home services: No Alcohol intake: never Patient Tobacco Use Status: Former Tobacco user Tobacco use type: Cigarette Cigarettes Per Day: 20 Years Smoked: 3 e-Cigarette/Vaping Use: Never Used service: No Current occupational status: disabled Cognitive needs: No Hearing needs: No Vision needs: Yes Review of Systems Musc Reports back pain, Reports arthralgias and Reports stiffness Physical Exam Vital Signs: Last Vital Signs Pulse 85 05/24/24 09:26 BP 118/80 05/24/24 09:26 Pulse Ox 97 05/24/24 09:26 Oxygen Delivery Method Room Air 05/24/24 09:26 BMI result Body Mass Index 35.8 Const General: cooperative, healthy appearing and comfortable Nutritional Appearance: obese Orientation/consciousness: patient oriented x3 Limitations: no limitations HEENT Head: Yes normocephalic and Yes atraumatic Resp Effort & Inspection: normal respiratory effort and able to speak in complete sentences Auscultation: clear to auscultation bilaterally Cardio Rate: regular rate Rhythm: regular rhythm Skin General skin exam: no rashes or lesions noted Neuro General: patient oriented x3 Extrem Other: No active synovitis Normal nailfold capillaroscopy Bilateral buttock tenderness Bilateral trochanteric bursa area tenderness with negative Sidney's test Diffuse fibromyalgia tender points Assessment & Plan Assessment & Plan (1) Fibromyalgia: Code(s): M79.7 - Fibromyalgia Category: Medical Plan: This is a 44-year-old female with fibromyalgia who presents for follow-up. In recent months there was suspicion of non radiographic axial spa by Marija Ramírez and patient was prescribed leflunomide for 3 months without much improvement. She was also prescribed meloxicam. Also did not provide much improvement. At this time I do not see any evidence suggestive of inflammatory arthritis. Clinical picture more consistent with fibromyalgia. Per patient, Lyrica has been quite helpful throughout the years. Continue with Lyrica 75 mg Twice daily. Follow-up in 6 months (2) Positive DANIELE (antinuclear antibody): Code(s): R76.8 - Other specified abnormal immunological findings in serum Category: Medical Plan: Comprehensive sub serologies was negative (3) Greater trochanteric bursitis of both hips: Code(s): M70.61 - Trochanteric bursitis, right hip; M70.62 - Trochanteric bursitis, left hip Category: Medical Plan: I provided patient with a printout of home exercises. Advised patient to reach out to her aircraft painter apprentice and consider an injection. She has received SI joint injections in the past which were helpful. Plan I spent 30 minutes reviewing patient's chart, evaluating patient, ordering diagnostic workup, counseling patient and documenting in the chart Coding Level of Care Code Est Pt Level 4 (84251) Diagnoses Fibromyalgia M79.7 Positive DANIELE (antinuclear antibody) R76.8 Greater trochanteric bursitis of both hips M70.61; M70.62
== END 2024-05-24 10:07 | disposition home or self-care (01) ==
PROVIDERS: PCP Internal Medicine; Visit Provider Student in an Organized Health Care Education/Training Program
DX: M79.7 Fibromyalgia (principal); R76.8 Other specified abnormal immunological findings in serum; M70.61 Trochanteric bursitis, right hip; M70.62 Trochanteric bursitis, left hip
CPT/HCPCS: 99214

== ENCOUNTER → 2024-05-24 09:23 | Outpatient (BNVA) | payer OTHER, SELFPAY | PROVIDERS: PCP Internal Medicine; Visit Provider Student in an Organized Health Care Education/Training Program | DX: M79.7 Fibromyalgia (principal); R76.8 Other specified abnormal immunological findings in serum; M70.61 Trochanteric bursitis, right hip; M70.62 Trochanteric bursitis, left hip | CPT/HCPCS: 99212 ==

== ENCOUNTER 2024-06-12 15:58 | Outpatient (AMB) | payer OTHER, SELFPAY ==
--- NOTE | 2024-06-12 16:01 | A.OFFWM_ITS ---
Intake Intake Visit Reasons: TV PO LSG 02/06/22 Allergies cat dander [CAT DANDER] Allergy (Mild, Verified 05/24/24 09:29) EYES- TEAR, ITCHY, face swells dog dander [DOG DANDER] Allergy (Mild, Verified 05/24/24 09:29) EYES- TEAR, ITCHY, hives duloxetine [From CYMBALTA] Adverse Reaction (Intermediate, Verified 05/24/24 09:29) VAGINAL BLEEDING PFSH Medical History (Updated 06/12/24 @ 16:11 by Jaz Bello) Bilateral knee pain Sacroiliac pain Positive DANIELE (antinuclear antibody) Refused influenza vaccine PTSD (post-traumatic stress disorder) Insomnia PONV (postoperative nausea and vomiting) Gastric ulcer Cholelithiasis Sacroiliitis Spondylosis of lumbar region without myelopathy or radiculopathy Scoliosis Goiter Restless leg syndrome ADHD (attention deficit hyperactivity disorder) Anxiety OCD (obsessive compulsive disorder) Hypertension GERD (gastroesophageal reflux disease) Vitamin D deficiency PCOS (polycystic ovarian syndrome) Body mass index [BMI]40.0-44.9, adult Irritable bowel syndrome with diarrhea Environmental and seasonal allergies Breast cancer screening by mammogram Dyslipidemia Gastritis Morbid obesity Hirsutism Telogen effluvium Heartburn Degenerative disc disease, lumbar Fibromyalgia Bipolar disorder Rosacea Acquired hypothyroidism Surgical History Hx of bariatric surgery Hx of shoulder surgery S/P laparoscopic sleeve gastrectomy Hx of cholecystectomy Hx of colonoscopy Miscarriage History of nasal surgery History of rotator cuff surgery Family History Father Diabetes mellitus Mother OCD (obsessive compulsive disorder) EITAN (generalized anxiety disorder) HTN (hypertension) Cancer Cervical cancer Family/Other FH: mental illness Maternal Grandmother EITAN (generalized anxiety disorder) Glaucoma Mental health disorder Maternal Grandfather Alzheimer disease Maternal Aunt Hypothyroidism Mental health disorder Paternal Grandmother Unknown family medical history Paternal Grandfather Unknown family medical history Sister Hypothyroidism Paternal Aunt Substance use disorder Maternal Uncle Substance use disorder Social History Household Members Other:: brother Housing: Apartment Are you a primary physician primary care sports medicine to a significant other at home: No Do you presently have visiting nurse or other home services: No Alcohol intake: never Patient Tobacco Use Status: Former Tobacco user Tobacco use type: Cigarette Cigarettes Per Day: 20 Years Smoked: 3 e-Cigarette/Vaping Use: Never Used service: No Current occupational status: disabled Cognitive needs: No Hearing needs: No Vision needs: Yes Behavioral Health Assessment Weight Management Therapy Therapy Notes Details Pt discussed the many changes in her life with moving to a new city and area in her boyfriends home. She has been depressed, sleeping more, trying to adjust. Also now needs to train her dog to stop urinating inside the house. Has not been turning to food or even thinking about it, rajiv has helped with this. Assessment & Plan Assessment & Plan (1) Adjustment disorder with depressed mood: Code(s): F43.21 - Adjustment disorder with depressed mood Plan Patient is adjusting to recent move away from her place to [facility] with her boyfriend. She has been sleeping more and feeling sadness/grief. She was encouraged to reach out and make an appt with therapist at [facility] as this is her last appt with this financial writer. She has done extensive mental health work over the past few years including EMDR. Telehealth Telehealth Telehealth Platform: Telephone Location of provider rendering services: other Location of patient: address on file Patient Identification confirmed using: Name, : Yes Telehealth method: voice only Patient verbally consented to treatment: Yes Patient verbally consented to billing insurance company: Yes Patient informed of any privacy concerns related to visit: Yes Minutes spent on Phone/Video with Pt.: 45 Coding Level of Care Code Tele Psytx 45 mins ([id number]) Diagnoses Adjustment disorder with depressed mood F43.21 Time Spent (min) 45
== END 2024-06-12 16:10 | disposition home or self-care (01) ==
LOC: HO.HBST 15:58
PROVIDERS: PCP Internal Medicine; Visit Provider Counselor Mental Health
DX: F43.21 Adjustment disorder with depressed mood (principal)
CPT/HCPCS: 90834

== ENCOUNTER → 2024-06-12 15:58 | Outpatient (BNVA) | payer OTHER, SELFPAY | PROVIDERS: PCP Internal Medicine; Visit Provider Counselor Mental Health ==

== ENCOUNTER 2024-06-26 11:00 | Outpatient (AMB) | payer OTHER, SELFPAY ==
[2024-06-26 11:57] VITALS: BP 102/80; PULSE 72; O2SAT 97; BMI 34.9
--- NOTE | 2024-06-26 11:57 | A.OFFPC_ITS ---
Vital Signs 06/26/24 11:57 Height 5 ft 3 in Weight 197 lb BMI 34.9 BP 102/80 Blood Pressure Location Lt brachial Position Sitting Pulse 72 Pulse Source Pulse Oximeter Pulse Oximetry (%) 97 Oxygen Delivery Method Room Air Intake Visit Reasons: 3m f/u weight, thyroid, fasting labs Intake Note: Pt is here today for her 3 mo. weight,thyroid and fasting labs Allergies cat dander [CAT DANDER] Allergy (Mild, Verified 06/26/24 12:12) EYES- TEAR, ITCHY, face swells dog dander [DOG DANDER] Allergy (Mild, Verified 06/26/24 12:12) EYES- TEAR, ITCHY, hives duloxetine [From CYMBALTA] Adverse Reaction (Intermediate, Verified 06/26/24 12:12) VAGINAL BLEEDING Medication List - Last Reconciled 06/26/24 by Elke Cross MD acetaminophen ER (Tylenol 8 Hour) 650 mg PO Q12H albuterol sulfate 90 mcg/actuation (Ventolin HFA) 1 - 2 puffs inhalation Q4H PRN alclometasone 0.05% appl topical BID PRN back brace As directed benzoyl peroxide 10% topical calcium carbonate-vitamin D3 250 mg-3.125 mcg (125 unit) 1 tab PO BID cariprazine (Vraylar) 3 mg PO DAILY cetirizine 10 mg PO DAILY PRN clonazepam mg PO ONCE PRN dextroamphetamine-amphetamine 25 mg ER (Adderall XR) 50 mg PO ONCE diclofenac sodium 1% topical fluticasone propionate 50 mcg/actuation 2 sprays intranasal DAILY ivermectin 1% (Soolantra) 1 appl topical DAILY levothyroxine 50 mcg PO DAILY 30 days metformin 500 mg PO BID 30 days multivitamin 1 tab PO DAILY Ozempic (semaglutide) 0.5 mg (0.736 mL) subcut QWEEK 30 days NS pregabalin 75 mg PO BID spironolactone 50 mg PO DAILY walker (Ultra-Light Rollator misc) As directed, with seat Tobacco use date assessed: 06/26/24 Dental Screening Dental Screen Date: 06/26/24 Did you have a dental visit in the last 12 months?: Yes Did you have a dental problem in the last 6 months where you did not have access to dental care?: Yes Was dental information given to patient?: Patient has dentist HPI 3m f/u weight, thyroid, fasting labs HPI Details 44-year-old lady with hypothyroidism, ob esity, and hypertension, here today for follow-up. She is currently on Ozempic to help with weight loss and has been combining this with diet and getting regular exercise. She has been feeling well, with no complaints at present time. [facility] Medical History Bilateral knee pain Sacroiliac pain Positive DANIELE (antinuclear antibody) Refused influenza vaccine PTSD (post-traumatic stress disorder) Insomnia PONV (postoperative nausea and vomiting) Gastric ulcer Cholelithiasis Sacroiliitis Spondylosis of lumbar region without myelopathy or radiculopathy Scoliosis Goiter Restless leg syndrome ADHD (attention deficit hyperactivity disorder) Anxiety OCD (obsessive compulsive disorder) Hypertension GERD (gastroesophageal reflux disease) Vitamin D deficiency PCOS (polycystic ovarian syndrome) Body mass index [BMI]40.0-44.9, adult Irritable bowel syndrome with diarrhea Environmental and seasonal allergies Breast cancer screening by mammogram Dyslipidemia Gastritis Morbid obesity Hirsutism Telogen effluvium Heartburn Degenerative disc disease, lumbar Fibromyalgia Bipolar disorder Rosacea Acquired hypothyroidism Surgical History Hx of bariatric surgery Hx of shoulder surgery S/P laparoscopic sleeve gastrectomy Hx of cholecystectomy Hx of colonoscopy Miscarriage History of nasal surgery History of rotator cuff surgery Family History Father Diabetes mellitus Mother OCD (obsessive compulsive disorder) EITAN (generalized anxiety disorder) HTN (hypertension) Cancer Cervical cancer Family/Other FH: mental illness Maternal Grandmother EITAN (generalized anxiety disorder) Glaucoma Mental health disorder Maternal Grandfather Alzheimer disease Maternal Aunt Hypothyroidism Mental health disorder Paternal Grandmother Unknown family medical history Paternal Grandfather Unknown family medical history Sister Hypothyroidism Paternal Aunt Substance use disorder Maternal Uncle Substance use disorder Social History Household Members Other:: brother Housing: Apartment Are you a primary personal care assistant to a significant other at home: No Do you presently have visiting nurse or other home services: No Alcohol intake: never Patient Tobacco Use Status: Former Tobacco user Tobacco use type: Cigarette Cigarettes Per Day: 20 Years Smoked: 3 e-Cigarette/Vaping Use: Never Used service: No Current occupational status: disabled Cognitive needs: No Hearing needs: No Vision needs: Yes Female Reproductive History Menstrual Date of last menstrual period: 03/20/24 Questionnaire PHQ-9 Over the last 2 weeks, how often have you been bothered by any of the following problems? 1. Little interest or pleasure in doing things: several days 2. Feeling down, depressed, or hopeless: more than half the days 3. Trouble falling or staying asleep, or sleeping too much: more than half the days 4. Feeling tired or having little energy: more than half the days 5. Poor appetite or overeating: several days 6. Feeling bad about yourself - or that you are a failure or have let yourself or your family down: several days 7. Trouble concentrating on things, such as reading the newspaper or watching television: more than half the days 8. Moving or speaking so slowly that other people could have noticed. Or the opposite - being so fidgety or restless that you have been moving around a lot more than usual: not at all 9. Thoughts that you would be better off or of hurting yourself in some way: not at all Total score: 11 Depression Screening Interpretation: Positive (Followed by psychiatry) Depression Screening Follow-up: Existing condition, In treatment and Community Mental Health Worker F/U Depression Screening Done: Yes Source: Developed by Drs. Parviz Lora, Ghazala Chang, Ryan Holland and colleagues, with an educational bryan from [employer]. Thrive Questionnaire Date Thrive assessed: 06/26/24 I am a: Patient What is your living situation today?: I have a place to live, but I am worried about losing it in the future Within the past 12 months, did the food you bought not last and you didn't have the money to get more?: Sometimes True Within the past 12 months, did you worry whether your food would run out before you got money to buy more?: Sometimes True Do you have trouble paying for medicines?: No Do you have trouble getting transportation to medical appointments?: Yes Do you have trouble paying your heating and electricity bill?: Yes Do you have trouble taking care of your child, family member or friend?: No Do you have trouble with day-to-day activities such as bathing, preparing meals, shopping, managing finances, etc.?: Yes Are you currently unemployed and looking for a job?: No Are you interested in more education?: No Please select the resources that you would like help with: Utilities and Daily support Currently or been in a relationship where the following occur: Controlled Emotionally THRIVE Score: 6 AUDIT C Alcohol Use Questionnaire (AUDIT-C) 1. How often do you have a drink containing alcohol?: Monthly or less 2. How many drinks containing alcohol do you have on a typical day when you are drinking?: 1 or 2 3. How often do you have six or more drinks on one occasion?: Never Total Score: 1 EITAN-7 AMB Questionnaire EITAN-7 Date EITAN - 7 assessed: 03/20/24 Feeling nervous, anxious, or on edge: 1 = Several days Not being able to stop or control worryin = Several days Worrying too much about different things: 1 = Several days Trouble relaxin = Several days Being so restless that it is hard to sit still: 1 = Several days Becoming easily annoyed or irritable: 1 = Several days Feeling afraid as if something awful might happen: 1 = Several days Total EITAN-7 score (0-4 normal; 5-9 mild; 10-14 moderate; 15-21 severe): 7 Source: Developed by Drs. Parviz Lora, Ghazala Chang, Ryan Holland and colleagues, with an educational bryan from [employer]. EITAN-7 Assessment Billing EITAN-7 Assessment Tool: EITAN-7 Assessment 33512 (Followed by psychiatry) Review of Systems Const Denies fever(s), Denies headache(s) and Denies weakness ENT Denies dizziness, Denies headache(s), Denies nasal congestion and Denies nasal discharge Card Denies chest pain, Denies lightheadedness, Denies palpitations and Denies dyspnea Resp Denies chest congestion, Denies cough, Denies dyspnea and Denies wheezing GI Denies abdominal pain and Denies change in bowel habits Denies hematuria, Denies urinary frequency, Denies dysuria and Denies urinary urgency Musc Reports as per HPI Neuro Denies dizziness, Denies headache(s) and Denies weakness Endo Denies polydipsia, Denies polyuria and Denies palpitations Daniel/Lymph Denies easy bruising Aller/Immun Denies seasonal rhinorrhea and Denies wheezing Physical exam (Primary Care) Vital Signs: Last Vital Signs Pulse 72 06/26/24 11:57 BP 102/80 06/26/24 11:57 Pulse Ox 97 06/26/24 11:57 Oxygen Delivery Method Room Air 06/26/24 11:57 BMI result Body Mass Index 34.9 Tobacco/Smoking Status: Tobacco use Status Tobacco use date assessed 06/26/24 06/26/24 12:04 Patient Tobacco Use Status Former Tobacco user 06/26/24 12:04 Tobacco use type Cigarette 06/26/24 12:04 e-Cigarette/Vaping Use Never Used 06/26/24 12:04 PHQ-9: PHQ-9 Score PHQ-9: Total score 11 06/26/24 12:35 Depression Screening Interpretation: Positive (Followed by psychiatry) Depression Screening Follow-up: Existing condition, In treatment and Community Mental Health Worker F/U Thrive Assessment: Date of Thrive Assessment Date Thrive assessed 06/26/24 06/26/24 12:04 Currently or been in a relationship where the following occur: Controlled Emotionally Const Other: Alert oriented x3, no acute distress noted, ambulatory with normal gait HENMT Mouth: oropharynx normal and moist mucous membranes Neck Neck: Yes full ROM, Yes no lymphadenopathy and Yes supple Resp Auscultation: clear to auscultation bilaterally Cardio Rate: regular rate Rhythm: regular rhythm Heart sounds: S1 normal heart sound present and S2 normal heart sound present GI Palpation (GI): Soft to palpation, nontender and no guarding Neuro General: tone normal, moves all extremities and no focal motor deficits Extrem General: Yes full ROM, Yes no joint enlargement, Yes no clubbing, cyanosis or edema, Yes no pedal edema and Yes no calf tenderness Results AMB Test Urine AMB Test Urine Negative Last Edit by Lyubov Bell CMA on 12:35 Results Reviewed Results Reviewed: Laboratory Last Values Tst Clinic Negative 06/26/24 12:34 Laboratory Tests 05/16/24 07:41 Estimat Average Glucose 97 Hemoglobin A1c % 5.0 Name: Jaz Torres Age/Sex: 43/F : 1980 Unit#: [id number] Attend Dr: Elke Cross MD Re05/16/24 Status: DEP REF Location: .LAB Disch: SPEC : [id number] TERRENCE: 05/16/24 STATUS: COMP REQ : [id number] RECD: 05/16/[address]: Elke Cross MD COMP: 05/16/24 ENTERED: 05/16/24 [facility] DR: ORDERED: CMP Fast, Lipid Panel, Free T4, TSH Test Result Flag Reference Sodium 141 135-145 mmol/L Potassium 4.1 3.3-5.1 mmol/L CL 106 96-108 mmol/L CO2 27 22-29 mmol/L Gap 12 12-20 BUN 19 H 9-16 mg/dL Creat 0.92 0.5-1.4 mg/dL EGFR > 60 NOTE: For -[place]ralt[place] individuals, multiply the result by 1.210. Chronic Kidney Disease: Estimated GFR < 60 mL/min/1.73m2 Severe Kidney Disease: Estimated GFR < 15 mL/min/1.73m2 FBS 89 60-99 mg/dL CA 9.9 8.4-10.2 mg/dL Total Bili 0.4 0.0-1.0 mg/dL AST (GOT) 16 5-31 U/L ALT (GPT) 16 0-31 U/L Protein, Total 7.3 6.5-8.0 g/dL Alb 4.4 3.5-5.0 g/dL Triglyceride 87 <150 mg/dL Desirable Triglyceride: less than 150 mg/dL Borderline High Triglyceride 150-199 mg/dL High Triglyceride: 200-499 mg/dL Very High Triglyceride: greater than or equal to 5OO mg/dL Cholesterol 210 H <200 mg/dL Desirable Cholesterol: less than 200 mg/dL Borderline High Cholesterol: 200-239 mg/dL High Cholesterol: greater than 239 mg/dL LDL Calculated 134 H <100 mg/dL Desirable LDL: less than 100 mg/dL Near Optimal/Above Optimal LDL: 110-129 mg/dL Borderline High LDL: 130-159 mg/dL High LDL: 160-189 mg/dL Very High LDL: greater than or equal to 190 mg/dL HDL 59 >40 mg/dL Desirable HDL: greater than 40 mg/dL Note: This HDL assay may give artificially low results in patients with liver disease. Alk Phos 54 39-117 U/L Free T4 1.03 0.71-1.85 ng/dL TSH 3rd Gen. 0.88 0.32-4.0 uIU/mL TSH 3rd Generation ([facility]) Assessment and Plan Assessment & Plan (1) Obesity: Code(s): E66.9 - Obesity, unspecified Qualifiers: Body mass index: BMI 38.0-38.9 Obesity classification: adult class 2 (BMI 35 - 39.9) Obesity type: due to excess calories Serious obesity comorbidity presence: without serious comorbidity Qualified Code(s): E66.09 - Other obesity due to excess calories; Z68.38 - Body mass index [BMI] 38.0-38.9, adult Plan: Continue with Ozempic, refill sent, continue with adherence to healthy eating habits and getting regular exercise. Will see her back for follow-up in 6 month (2) Acquired hypothyroidism: Code(s): E03.9 - Hypothyroidism, unspecified Plan: Recent thyroid levels are within normal limits, will continue on current dose of levothyroxine 50 mcg daily in a.m. (3) Missed period: Code(s): N92.6 - Irregular menstruation, unspecified Plan: Urine hCG came back negative (4) Dyslipidemia: Code(s): E78.5 - Hyperlipidemia, unspecified Plan: Reviewed recent fasting lipid profile with patient with levels within normal . Continue adherence to low-cholesterol diet and regular exercise, at least 30 minutes 3 to 4 times a week. Advised patient to make healthy food choices, eat more fruits, vegetables, whole grains, wild caught fish and low-fat dairy. Limit amount of meat and fried or fatty food products, as well as processed foods and fast foods. Follow-up scheduled with repeat fasting lipid panel in 6 months. (5) Impaired fasting glucose: Code(s): R73.01 - Impaired fasting glucose Plan: Continue with Ozempic in addition to adherence to healthy diet and getting regular exercise Orders: Orders Thyroid Stimulating Hormone 12/14/24 E03.9 - Hypothyroidism, unspecified, E66.09 - Other obesity due to excess calories, E78.5 - Hyperlipidemia, unspecified, Z68.38 - Body mass index [BMI] 38.0-38.9, adult Aspartate Amino Transferase 12/14/24 E03.9 - Hypothyroidism, unspecified, E66.09 - Other obesity due to excess calories, E78.5 - Hyperlipidemia, unspecified, Z68.38 - Body mass index [BMI] 38.0-38.9, adult Alanine Aminotransferase 12/14/24 E03.9 - Hypothyroidism, unspecified, E66.09 - Other obesity due to excess calories, E78.5 - Hyperlipidemia, unspecified, Z68.38 - Body mass index [BMI] 38.0-38.9, adult Free T4 (Free Thyroxine) 12/14/24 E03.9 - Hypothyroidism, unspecified, E66.09 - Other obesity due to excess calories, E78.5 - Hyperlipidemia, unspecified, Z68.38 - Body mass index [BMI] 38.0-38.9, adult Hemoglobin A1c 12/14/24 E03.9 - Hypothyroidism, unspecified, E66.09 - Other obesity due to excess calories, E78.5 - Hyperlipidemia, unspecified, Z68.38 - Body mass index [BMI] 38.0-38.9, adult Lipid Panel 12/14/24 E03.9 - Hypothyroidism, unspecified, E66.09 - Other obesity due to excess calories, E78.5 - Hyperlipidemia, unspecified, Z68.38 - Body mass index [BMI] 38.0-38.9, adult Basic Metabolic Panel Fasting 12/14/24 E03.9 - Hypothyroidism, unspecified, E66.09 - Other obesity due to excess calories, E78.5 - Hyperlipidemia, unspecified, Z68.38 - Body mass index [BMI] 38.0-38.9, adult AMB HCG Urine Test 06/26/24 N92.6 - Irregular menstruation, unspecified Coding Level of Care Code Est Pt Level 4 (02461) Complex EM visit Add On G2211 Diagnoses Class 2 obesity due to excess calories without serious comorbidity with body mass index (BMI) of 38.0 to 38.9 in adult E66.09; Z68.38 Body mass index: BMI 38.0-38.9 Obesity classification: adult class 2 (BMI 35 - 39.9) Obesity type: due to excess calories Serious obesity comorbidity presence: without serious comorbidity Acquired hypothyroidism E03.9 Missed period N92.6 Dyslipidemia E78.5 Impaired fasting glucose R73.01 Additional Codes EITAN-7 Assessment Billing - EITAN-7 Assessment Tool: EITAN-7 Assessment 05962 ([id number])
== END 2024-06-26 12:51 | disposition home or self-care (01) ==
PROVIDERS: PCP Internal Medicine; Visit Provider Internal Medicine
DX: Z32.02 Encounter for pregnancy test, result negative (principal)
CPT/HCPCS: 81025; 99214; G2211

== ENCOUNTER → 2024-08-08 12:17 | Outpatient (AMB) | payer OTHER, SELFPAY ==
--- NOTE | 2024-08-08 12:19 | A.OFFWM_ITS ---
Intake Intake Visit Reasons: VIDEO PO LSG 02/06/22 Allergies cat dander [CAT DANDER] Allergy (Mild, Verified 06/26/24 12:12) EYES- TEAR, ITCHY, face swells dog dander [DOG DANDER] Allergy (Mild, Verified 06/26/24 12:12) EYES- TEAR, ITCHY, hives duloxetine [From CYMBALTA] Adverse Reaction (Intermediate, Verified 06/26/24 12:12) VAGINAL BLEEDING PFSH Medical History Bilateral knee pain Sacroiliac pain Positive DANIELE (antinuclear antibody) Refused influenza vaccine PTSD (post-traumatic stress disorder) Insomnia PONV (postoperative nausea and vomiting) Gastric ulcer Cholelithiasis Sacroiliitis Spondylosis of lumbar region without myelopathy or radiculopathy Scoliosis Goiter Restless leg syndrome ADHD (attention deficit hyperactivity disorder) Anxiety OCD (obsessive compulsive disorder) Hypertension GERD (gastroesophageal reflux disease) Vitamin D deficiency PCOS (polycystic ovarian syndrome) Body mass index [BMI]40.0-44.9, adult Irritable bowel syndrome with diarrhea Environmental and seasonal allergies Breast cancer screening by mammogram Dyslipidemia Gastritis Morbid obesity Hirsutism Telogen effluvium Heartburn Degenerative disc disease, lumbar Fibromyalgia Bipolar disorder Rosacea Acquired hypothyroidism Surgical History Hx of bariatric surgery Hx of shoulder surgery S/P laparoscopic sleeve gastrectomy Hx of cholecystectomy Hx of colonoscopy Miscarriage History of nasal surgery History of rotator cuff surgery Family History Father Diabetes mellitus Mother OCD (obsessive compulsive disorder) EITAN (generalized anxiety disorder) HTN (hypertension) Cancer Cervical cancer Family/Other FH: mental illness Maternal Grandmother EITAN (generalized anxiety disorder) Glaucoma Mental health disorder Maternal Grandfather Alzheimer disease Maternal Aunt Hypothyroidism Mental health disorder Paternal Grandmother Unknown family medical history Paternal Grandfather Unknown family medical history Sister Hypothyroidism Paternal Aunt Substance use disorder Maternal Uncle Substance use disorder Social History Household Members Other:: brother Housing: Apartment Are you a primary lpn care manager to a significant other at home: No Do you presently have visiting nurse or other home services: No Alcohol intake: never Patient Tobacco Use Status: Former Tobacco user Tobacco use type: Cigarette Cigarettes Per Day: 20 Years Smoked: 3 e-Cigarette/Vaping Use: Never Used service: No Current occupational status: disabled Cognitive needs: No Hearing needs: No Vision needs: Yes Behavioral Health Assessment Weight Management Therapy Therapy Notes Details PT i a 44 y/o female, who is presents for BH counseling session to continue BH support post-surgery. She had bariatric surgery in 2021. PT reports her goal is to be at 175Lbs, and her lowest weight post op was 165Lbs. Presenting Concerns Referral Source [facility] clinician, Jaz Evans Reason for referral Continue BH support pot-op. Precipitating Event Issues with weight loss post-surgery. Living Situation Current Living Situation Rent At risk of losing current housing? Yes Satisfied with current living situation? No Comments PT lives with her 23 y/o brother whom she raised., Social History Family history and relationship Single, never . She has a boyfriend, and they have been together for over a year. PT has 7 siblings. Father lives in the [place] and the mother in [place]. She has good family relationships in the distance and they like apart. 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 He has cognitive impairments, learning disabilities, ADHD. Developmental history and status None reported. Social support Boyfriend, some friends, mother Community support P-providers, PCP. Shinto/Spirituality Yazidi. Cultural/Ethnic information . Dad from and mom from [place]. She was born in [place] but raised in [place]. [place] the [place] in 2013 Legal Involvement and History Current or historical involvement with the legal system? None reported. 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 Employment Employment Status Unemployed (Since 2015. ) Financial Situation Describe current financial situation Occasional struggle Financial assistance? Food [place] and [employer] Service Service? No Mental Health and Addiction Treatment Psychiatric history PT has been in counseling at this program since 2022 and did group therapy and individual counseling with Nathan Godinez [facility]. She has a history of MDD, EITAN, ADHD, and bipolar type 2. She sees a psychiatrist, Hunter Dixon at [facility] in [place], [place]. and takes: -Adderall 25mg, -clonazepam 0.5mg, for anxiety -Vraylar 3mg, -ViiBryd 40mg, for depression -Buspirone 4mg, for anxiety PT reports she Had a depressive episode last week, deals with anxiety daily and episodes of irritability. PT reports she also deals with emotional eating which has impacted we post-op weight loss. Questionnaires PHQ-9 Over the last 2 weeks, how often have you been bothered by any of the following problems? 1. Little interest or pleasure in doing things: several days 2. Feeling down, depressed, or hopeless: more than half the days 3. Trouble falling or staying asleep, or sleeping too much: more than half the days 4. Feeling tired or having little energy: more than half the days 5. Poor appetite or overeating: several days 6. Feeling bad about yourself - or that you are a failure or have let yourself or your family down: several days 7. Trouble concentrating on things, such as reading the newspaper or watching television: more than half the days 8. Moving or speaking so slowly that other people could have noticed. Or the opposite - being so fidgety or restless that you have been moving around a lot more than usual: not at all 9. Thoughts that you would be better off or of hurting yourself in some way: not at all Total score: 11 Source: Developed by Drs. Parviz Lora, Ghazala Chang, Ryan Holland and colleagues, with an educational bryan from [employer]. Assessment & Plan Assessment & Plan (1) Unspecified mood [affective] disorder: Code(s): F39 - Unspecified mood [affective] disorder (2) Generalized anxiety disorder: Code(s): F41.1 - Generalized anxiety disorder Plan PT will continue BH support with this provider on a bi-weekly basis. Next anamaria we will complete the Assessment and tx plan goals. Next anamaria: 08/22/24 at 10am, via telehealth. Telehealth Telehealth Location of provider rendering services: other Location of patient: address on file Patient Identification confirmed using: Name, : Yes Telehealth method: video Patient verbally consented to treatment: Yes Patient verbally consented to billing insurance company: Yes Patient informed of any privacy concerns related to visit: No Minutes spent on Phone/Video with Pt.: 50 Coding Level of Care Code New Pt Tele Psy Diag Eval (73843) Patient Type New Diagnoses Unspecified mood [affective] disorder F39 Generalized anxiety disorder F41.1 Time Spent (min) 50
== END ==
PROVIDERS: PCP Internal Medicine; Visit Provider Counselor Mental Health
DX: F39 Unspecified mood [affective] disorder (principal); F41.1 Generalized anxiety disorder
CPT/HCPCS: 90791

== ENCOUNTER → 2024-08-08 12:17 | Outpatient (BNVA) | payer OTHER, SELFPAY | PROVIDERS: PCP Internal Medicine; Visit Provider Counselor Mental Health ==

== ENCOUNTER → 2024-08-22 10:30 | Outpatient (BNVA) | payer OTHER, SELFPAY | PROVIDERS: PCP Internal Medicine; Visit Provider Counselor Mental Health ==

== ENCOUNTER → 2024-08-22 10:30 | Outpatient (AMB) | payer OTHER, SELFPAY ==
--- NOTE | 2024-08-22 11:20 | A.OFFWM_ITS ---
Intake Intake Visit Reasons: VIDEO PO LSG 02/06/22 Allergies cat dander [CAT DANDER] Allergy (Mild, Verified 06/26/24 12:12) EYES- TEAR, ITCHY, face swells dog dander [DOG DANDER] Allergy (Mild, Verified 06/26/24 12:12) EYES- TEAR, ITCHY, hives duloxetine [From CYMBALTA] Adverse Reaction (Intermediate, Verified 06/26/24 12:12) VAGINAL BLEEDING PFSH Medical History (Updated 08/08/24 @ 13:21 by Puja Flores [facility]) Bilateral knee pain Sacroiliac pain Positive DANIELE (antinuclear antibody) Refused influenza vaccine PTSD (post-traumatic stress disorder) Insomnia PONV (postoperative nausea and vomiting) Gastric ulcer Cholelithiasis Sacroiliitis Spondylosis of lumbar region without myelopathy or radiculopathy Scoliosis Goiter Restless leg syndrome ADHD (attention deficit hyperactivity disorder) Anxiety OCD (obsessive compulsive disorder) Hypertension GERD (gastroesophageal reflux disease) Vitamin D deficiency PCOS (polycystic ovarian syndrome) Body mass index [BMI]40.0-44.9, adult Irritable bowel syndrome with diarrhea Environmental and seasonal allergies Breast cancer screening by mammogram Dyslipidemia Gastritis Morbid obesity Hirsutism Telogen effluvium Heartburn Degenerative disc disease, lumbar Fibromyalgia Bipolar disorder Rosacea Acquired hypothyroidism Surgical History (Updated 09/19/24 @ 14:29 by TYRONE Green) S/P laparoscopic sleeve gastrectomy Hx of bariatric surgery Hx of shoulder surgery Hx of cholecystectomy Hx of colonoscopy Miscarriage History of nasal surgery History of rotator cuff surgery Family History Father Diabetes mellitus Mother OCD (obsessive compulsive disorder) EITAN (generalized anxiety disorder) HTN (hypertension) Cancer Cervical cancer Family/Other FH: mental illness Maternal Grandmother EITAN (generalized anxiety disorder) Glaucoma Mental health disorder Maternal Grandfather Alzheimer disease Maternal Aunt Hypothyroidism Mental health disorder Paternal Grandmother Unknown family medical history Paternal Grandfather Unknown family medical history Sister Hypothyroidism Paternal Aunt Substance use disorder Maternal Uncle Substance use disorder Social History Household Members Other:: brother Housing: Apartment Are you a primary medicare insurance specialist to a significant other at home: No Do you presently have visiting nurse or other home services: No Alcohol intake: never Patient Tobacco Use Status: Former Tobacco user Tobacco use type: Cigarette Cigarettes Per Day: 20 Years Smoked: 3 e-Cigarette/Vaping Use: Never Used service: No Current occupational status: disabled Cognitive needs: No Hearing needs: No Vision needs: Yes Behavioral Health Assessment Weight Management Therapy Therapy Notes Details Subjective: PT reports feeling stable. Objective: PT presents for a second visit with new provider. Today we identified goals for Tx plan and work together. TREATMENT PLAN DATE: 08/22/2024 Modality: Individual Counseling on a bi-weekly basis. PT also meets with psychiatrist in another facility every 1-3 months for medication management. Safety concerns: None reported and/or identified. Problem 1: Management of Mental Health Symptoms Impacting Functioning The client is experiencing mental health symptoms that are significantly affecting their daily functioning, including mood instability, anxiety, and difficulty managing stress. These symptoms contribute to challenges in both personal and professional contexts, limiting overall quality of life. Goal 1: Reduce severity of mental health symptoms to improve daily functioning INTERVENTIONS * Employ Cognitive Behavioral Therapy (CBT) to help the client identify and restructure negative thought patterns contributing to their symptoms. Sessions will focus on developing cognitive strategies and behavioral modifications to manage anxiety and depressive symptoms effectively. * Utilize mindfulness-based stress reduction techniques to help the client increase awareness of the present moment and decrease overall stress levels. Sessions will include guided mindfulness exercises and the development of a personalized mindfulness practice. * Collaborate with the client to establish a daily routine that incorporates self-care activities, ensuring a balance between responsibilities and personal well-being. Monitor adherence to the routine and adjust as needed. Goal 2: Enhance coping skills to manage stressors effectively Client will demonstrate the use of at least three new coping strategies in stressful situations, as reported in weekly therapy sessions. INTERVENTIONS * Introduce and practice problem-solving techniques to address specific stressors in the client's life. Role-playing exercises will be used to enhance the client's confidence in applying these strategies in real-life scenarios. * Conduct relaxation training, including progressive muscle relaxation and deep breathing exercises, to reduce physiological symptoms of stress. The client will be encouraged to practice these techniques daily. * Develop an action plan to manage acute stress moments, which includes identifying triggers, early warning signs, and a personalized toolkit of coping strategies. Problem 2: Eating Behavior and Relationship with Food as Bariatric Surgery Patient Goal 1: Establish a healthy eating pattern and positive relationship with food INTERVENTIONS * Coordinate with WMP-provider to create a personalized nutrition plan that suits the client's post-surgery dietary needs. Regular follow-ups will be scheduled to assess progress and make necessary adjustments. * Implement motivational interviewing techniques to enhance the client?s intrinsic motivation for maintaining healthy eating habits. Explore ambivalence and reinforce commitment to the nutrition plan. * Facilitate psychoeducation sessions on the psychological aspects of eating, focusing on emotional eating triggers and strategies for mindful eating. Encourage the client to keep a food and mood journal to identify patterns. * Support developing a behavioral activation plan to engage in exercise and healthy eating as indicated by provider. * Develop a personal affirmation practice that the client can use daily to reinforce positive self-talk and counteract negative body image thoughts. Presenting Concerns Referral Source [facility] clinician, Jaz Evans Reason for referral Continue BH support pot-op. Precipitating Event Issues with weight loss post-surgery. Living Situation Current Living Situation Rent At risk of losing current housing? Yes Satisfied with current living situation? No Comments PT lives with her 23 y/o brother whom she raised., Social History Family history and relationship Single, never . She has a boyfriend, and they have been together for over a year. PT has 7 siblings. Father lives in the [place] and the mother in [place]. She has good family relationships in the distance and they like apart. 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 He has cognitive impairments, learning disabilities, ADHD. Developmental history and status None reported. Social support Boyfriend, some friends, mother Community support P-providers, PCP. Church/Spirituality Voodoo. Cultural/Ethnic information . Dad from and mom from [place]. She was born in [place] but raised in [place]. [place] the [place] in 2013 Legal Involvement and History Current or historical involvement with the legal system? None reported. 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 Employment Employment Status Unemployed (Since 2015. ) Financial Situation Describe current financial situation Occasional struggle Financial assistance? Food [place] and [employer]SI Service Service? No Mental Health and Addiction Treatment Psychiatric history PT has been in counseling at this program since 2022 and did group therapy and individual counseling with MARTINA Perea. She has a history of MDD, EITAN, ADHD, and bipolar type 2. She sees a psychiatrist, Hunter Dixon at [facility] in [place], [place]. and takes: -Adderall 25mg, -clonazepam 0.5mg, for anxiety -Vraylar 3mg, -ViiBryd 40mg, for depression -Buspirone 4mg, for anxiety PT reports she Had a depressive episode last week, deals with anxiety daily and episodes of irritability. PT reports she also deals with emotional eating which has impacted we post-op weight loss. Questionnaires PHQ-9 Over the last 2 weeks, how often have you been bothered by any of the following problems? 1. Little interest or pleasure in doing things: several days 2. Feeling down, depressed, or hopeless: more than half the days 3. Trouble falling or staying asleep, or sleeping too much: more than half the days 4. Feeling tired or having little energy: more than half the days 5. Poor appetite or overeating: several days 6. Feeling bad about yourself - or that you are a failure or have let yourself or your family down: several days 7. Trouble concentrating on things, such as reading the newspaper or watching television: more than half the days 8. Moving or speaking so slowly that other people could have noticed. Or the opposite - being so fidgety or restless that you have been moving around a lot more than usual: not at all 9. Thoughts that you would be better off or of hurting yourself in some way: not at all Total score: 11 Depression Screening Interpretation: Positive (From last session) Depression Screening Done: Yes Source: Developed by Drs. Parviz Lora, Ghazala Chang, Ryan Holland and colleagues, with an educational bryan from [employer]. Assessment & Plan Assessment & Plan (1) Unspecified mood [affective] disorder: Code(s): F39 - Unspecified mood [affective] disorder (2) Generalized anxiety disorder: Code(s): F41.1 - Generalized anxiety disorder Plan Follow up in 2 weeks. Next anamaria: 09/25/2024 Telehealth Telehealth Telehealth Platform: [employer] Location of provider rendering services: other Location of patient: address on file Patient Identification confirmed using: Name, : Yes Telehealth method: video Patient verbally consented to treatment: Yes Patient verbally consented to billing insurance company: Yes Patient informed of any privacy concerns related to visit: Yes Minutes spent on Phone/Video with Pt.: 55 Coding Level of Care Code Established Pt Tele Psytx >53 mins (19761) Patient Type Established Diagnoses Unspecified mood [affective] disorder F39 Generalized anxiety disorder F41.1 Time Spent (min) 55 Comment
== END ==
LOC: HO.HBST 10:30
PROVIDERS: PCP Internal Medicine; Visit Provider Counselor Mental Health
DX: F39 Unspecified mood [affective] disorder (principal); F41.1 Generalized anxiety disorder
CPT/HCPCS: 90837

== ENCOUNTER → 2024-09-09 13:18 | Outpatient (BNVA) | payer OTHER, SELFPAY | PROVIDERS: PCP Internal Medicine; Visit Provider Counselor Mental Health ==

== ENCOUNTER → 2024-09-09 13:18 | Outpatient (AMB) | payer OTHER, SELFPAY ==
--- NOTE | 2024-09-09 13:20 | A.OFFWM_ITS ---
Intake Intake Visit Reasons: VIDEO PO LSG 02/06/22 Allergies cat dander [CAT DANDER] Allergy (Mild, Verified 06/26/24 12:12) EYES- TEAR, ITCHY, face swells dog dander [DOG DANDER] Allergy (Mild, Verified 06/26/24 12:12) EYES- TEAR, ITCHY, hives duloxetine [From CYMBALTA] Adverse Reaction (Intermediate, Verified 06/26/24 12:12) VAGINAL BLEEDING PFSH Medical History (Updated 08/08/24 @ 13:21 by Puja Flores [facility]) Bilateral knee pain Sacroiliac pain Positive DANIELE (antinuclear antibody) Refused influenza vaccine PTSD (post-traumatic stress disorder) Insomnia PONV (postoperative nausea and vomiting) Gastric ulcer Cholelithiasis Sacroiliitis Spondylosis of lumbar region without myelopathy or radiculopathy Scoliosis Goiter Restless leg syndrome ADHD (attention deficit hyperactivity disorder) Anxiety OCD (obsessive compulsive disorder) Hypertension GERD (gastroesophageal reflux disease) Vitamin D deficiency PCOS (polycystic ovarian syndrome) Body mass index [BMI]40.0-44.9, adult Irritable bowel syndrome with diarrhea Environmental and seasonal allergies Breast cancer screening by mammogram Dyslipidemia Gastritis Morbid obesity Hirsutism Telogen effluvium Heartburn Degenerative disc disease, lumbar Fibromyalgia Bipolar disorder Rosacea Acquired hypothyroidism Surgical History (Updated 09/19/24 @ 14:29 by TYRONE Green) S/P laparoscopic sleeve gastrectomy Hx of bariatric surgery Hx of shoulder surgery Hx of cholecystectomy Hx of colonoscopy Miscarriage History of nasal surgery History of rotator cuff surgery Family History Father Diabetes mellitus Mother OCD (obsessive compulsive disorder) EITAN (generalized anxiety disorder) HTN (hypertension) Cancer Cervical cancer Family/Other FH: mental illness Maternal Grandmother EITAN (generalized anxiety disorder) Glaucoma Mental health disorder Maternal Grandfather Alzheimer disease Maternal Aunt Hypothyroidism Mental health disorder Paternal Grandmother Unknown family medical history Paternal Grandfather Unknown family medical history Sister Hypothyroidism Paternal Aunt Substance use disorder Maternal Uncle Substance use disorder Social History Household Members Other:: brother Housing: Apartment Are you a primary personal care assistant to a significant other at home: No Do you presently have visiting nurse or other home services: No Alcohol intake: never Patient Tobacco Use Status: Former Tobacco user Tobacco use type: Cigarette Cigarettes Per Day: 20 Years Smoked: 3 e-Cigarette/Vaping Use: Never Used service: No Current occupational status: disabled Cognitive needs: No Hearing needs: No Vision needs: Yes Behavioral Health Assessment Weight Management Therapy Therapy Notes Details Subjective: Pt reports been tired in the mornings, which makes hard to eat breakfast. Been irritated in general and with low energy. Objective: PT presents for a follow up via Telehealth . Discussed routine and functioning. Utilize mindfulness-based techniques for stress reduction and to increase awareness of the present moment and decrease overall stress levels. Supported at learning about her routine issues and to establish a daily routine that incorporates self-care activities, ensuring a balance between responsibilities and personal well-being. Advised client to discuss with provider about possible sleeping issues (oversleeping), related to medication dosages. Assessment/Response: * Mental status: oriented X3. Irritability, down , functioning issues. * Risk reported/identified: None PT active and responded well to interventions. Assessment & Plan Assessment & Plan (1) Unspecified mood [affective] disorder: Code(s): F39 - Unspecified mood [affective] disorder (2) Generalized anxiety disorder: Code(s): F41.1 - Generalized anxiety disorder Plan f/up in 2 weeks. Next anamaria: 09/25/2024 Telehealth Telehealth Telehealth Platform: [employer] Location of provider rendering services: other Location of patient: address on file Patient Identification confirmed using: Name, : Yes Telehealth method: video Patient verbally consented to treatment: Yes Patient verbally consented to billing insurance company: Yes Patient informed of any privacy concerns related to visit: Yes Minutes spent on Phone/Video with Pt.: 45 Coding Level of Care Code Established Pt Tele Psytx 45 mins (81767) Patient Type Established Diagnoses Unspecified mood [affective] disorder F39 Generalized anxiety disorder F41.1 Time Spent (min) 45 Comment Start: 1:15pm, end: 2:00pm
== END ==
LOC: HO.HBST 13:18
PROVIDERS: PCP Internal Medicine; Visit Provider Counselor Mental Health
DX: F39 Unspecified mood [affective] disorder (principal); F41.1 Generalized anxiety disorder
CPT/HCPCS: 90834

== ENCOUNTER 2024-09-19 14:00 | Outpatient (AMB) | payer OTHER, SELFPAY ==
--- NOTE | 2024-09-19 14:09 | A.OFFVIS_ITS ---
VS Expanded 09/19/24 14:10 Height 5 ft 3 in Weight 189 lb 8 oz BMI 33.6 Intake Visit Reasons: (TV) PO LSG 02/06/22 Senior Administrator Support Required: No Allergies cat dander [CAT DANDER] Allergy (Mild, Verified 06/26/24 12:12) EYES- TEAR, ITCHY, face swells dog dander [DOG DANDER] Allergy (Mild, Verified 06/26/24 12:12) EYES- TEAR, ITCHY, hives duloxetine [From CYMBALTA] Adverse Reaction (Intermediate, Verified 06/26/24 12:12) VAGINAL BLEEDING Medication List - Last Reconciled 09/19/24 by TYRONE Green acetaminophen ER (Tylenol 8 Hour) 650 mg PO Q12H albuterol sulfate 90 mcg/actuation (Ventolin HFA) 1 - 2 puffs inhalation Q4H PRN alclometasone 0.05% appl topical BID PRN back brace As directed benzoyl peroxide 10% topical calcium carbonate-vitamin D3 250 mg-3.125 mcg (125 unit) 1 tab PO BID cariprazine (Vraylar) 3 mg PO DAILY cetirizine 10 mg PO DAILY PRN clonazepam mg PO ONCE PRN dextroamphetamine-amphetamine 25 mg ER (Adderall XR) 50 mg PO ONCE diclofenac sodium 1% topical fluticasone propionate 50 mcg/actuation 2 sprays intranasal DAILY ivermectin 1% (Soolantra) 1 appl topical DAILY levothyroxine 50 mcg PO DAILY 30 days metformin 500 mg PO BID 30 days multivitamin 1 tab PO DAILY Ozempic (semaglutide) 0.5 mg (0.736 mL) subcut QWEEK 30 days NS pregabalin 75 mg PO BID spironolactone 50 mg PO DAILY walker (Ultra-Light Rollator misc) As directed, with seat HPI Comments Details: 43-year-old female returns to the office today in follow-up. She is approximately 2 years 7 months status post sleeve gastrectomy performed on 02/06/2022. She had been followed by our registered dietitian, Jazmín in the past. Weight today is 189.8 lb with a BMI of 33.6. She states she finished PT and f/u with ortho has cleared her for exercise. She is taking her mvi in the afternoon and the calcium at night. She is not following the meal plan. LSG with Dr. Easley 02/16/22 Preop weight (02/11/2022) 205# weight at 3 MO 176# weight at 6 MO PO 173 weight weight (12/09/22) 188# Weight in Fe 184 Goal 140# wakes at 10 am meal plan: 10 am 2 eggs w vegetables, 1/4 c fresh berries, 4 oz coffee w tsp 2 and 1/2 12-2pm shake, 1 scoop in 8 oz almond milk 4-6 pm another shake, 2 scoops in 8 oz almond milk 630 pm 7 forks of protein and 7 forks of vegetables, no rice or beans. Drinkin oz water 20 oz gatorade zero Exercise plan: stationary bike at home, 2 x week, 40 min, 250 PFSH Medical History (Updated 08/08/24 @ 13:21 by Puja Flores [facility]) Bilateral knee pain Sacroiliac pain Positive DANIELE (antinuclear antibody) Refused influenza vaccine PTSD (post-traumatic stress disorder) Insomnia PONV (postoperative nausea and vomiting) Gastric ulcer Cholelithiasis Sacroiliitis Spondylosis of lumbar region without myelopathy or radiculopathy Scoliosis Goiter Restless leg syndrome ADHD (attention deficit hyperactivity disorder) Anxiety OCD (obsessive compulsive disorder) Hypertension GERD (gastroesophageal reflux disease) Vitamin D deficiency PCOS (polycystic ovarian syndrome) Body mass index [BMI]40.0-44.9, adult Irritable bowel syndrome with diarrhea Environmental and seasonal allergies Breast cancer screening by mammogram Dyslipidemia Gastritis Morbid obesity Hirsutism Telogen effluvium Heartburn Degenerative disc disease, lumbar Fibromyalgia Bipolar disorder Rosacea Acquired hypothyroidism Surgical History (Updated 09/19/24 @ 14:29 by YTRONE Green) S/P laparoscopic sleeve gastrectomy Hx of bariatric surgery Hx of shoulder surgery Hx of cholecystectomy Hx of colonoscopy Miscarriage History of nasal surgery History of rotator cuff surgery Family History Father Diabetes mellitus Mother OCD (obsessive compulsive disorder) EITAN (generalized anxiety disorder) HTN (hypertension) Cancer Cervical cancer Family/Other FH: mental illness Maternal Grandmother EITAN (generalized anxiety disorder) Glaucoma Mental health disorder Maternal Grandfather Alzheimer disease Maternal Aunt Hypothyroidism Mental health disorder Paternal Grandmother Unknown family medical history Paternal Grandfather Unknown family medical history Sister Hypothyroidism Paternal Aunt Substance use disorder Maternal Uncle Substance use disorder Social History Household Members Other:: brother Housing: Apartment Are you a primary plant care worker to a significant other at home: No Do you presently have visiting nurse or other home services: No Alcohol intake: never Patient Tobacco Use Status: Former Tobacco user Tobacco use type: Cigarette Cigarettes Per Day: 20 Years Smoked: 3 e-Cigarette/Vaping Use: Never Used service: No Current occupational status: disabled Cognitive needs: No Hearing needs: No Vision needs: Yes Telehealth Telehealth Telehealth Platform: Telephone Location of provider rendering services: practice address Location of patient: address on file Patient Identification confirmed using: Name, : Yes Telehealth method: voice only Patient verbally consented to treatment: Yes Patient verbally consented to billing insurance company: Yes Patient informed of any privacy concerns related to visit: Yes Minutes spent on Phone/Video with Pt.: 15 Assessment & Plan Assessment & Plan (1) S/P laparoscopic sleeve gastrectomy: Code(s): Z98.84 - Bariatric surgery status Category: Surgical Plan: Change meal plan as listed above. Encouraged to increase her exercise at home from 2 days a week to 6 days per week using the stationary bike. She states th at she is trying to join the [employer] in [place] where she recently moved to an adjacent town. I called the [facility] on her behalf to try to get her the local discount and awaiting call back. We will have her return to the office in approximately 2 months, encouraged to text weight weekly and with any questions or concerns
[2024-09-19 14:10] VITALS: BMI 33.6
== END 2024-09-19 14:35 | disposition home or self-care (01) ==
LOC: HO.HBS 14:26
PROVIDERS: PCP Internal Medicine; Visit Provider Physician Assistant Surgical
DX: E66.811 Obesity, class 1 (principal); Z68.33 Body mass index [BMI] 33.0-33.9, adult; Z90.3 Acquired absence of stomach [part of]; Z98.84 Bariatric surgery status
CPT/HCPCS: 99213

== ENCOUNTER → 2024-09-19 14:00 | Outpatient (BNVA) | payer OTHER, SELFPAY | PROVIDERS: PCP Internal Medicine; Visit Provider Physician Assistant Surgical ==

== ENCOUNTER → 2024-09-25 13:20 | Outpatient (AMB) | payer OTHER, SELFPAY ==
--- NOTE | 2024-09-25 13:10 | A.OFFWM_ITS ---
Intake Intake Visit Reasons: VIDEO PO LSG 02/06/22 Allergies cat dander [CAT DANDER] Allergy (Mild, Verified 06/26/24 12:12) EYES- TEAR, ITCHY, face swells dog dander [DOG DANDER] Allergy (Mild, Verified 06/26/24 12:12) EYES- TEAR, ITCHY, hives duloxetine [From CYMBALTA] Adverse Reaction (Intermediate, Verified 06/26/24 12:12) VAGINAL BLEEDING PFSH Medical History (Updated 08/08/24 @ 13:21 by Puja Flores [facility]) Bilateral knee pain Sacroiliac pain Positive DANIELE (antinuclear antibody) Refused influenza vaccine PTSD (post-traumatic stress disorder) Insomnia PONV (postoperative nausea and vomiting) Gastric ulcer Cholelithiasis Sacroiliitis Spondylosis of lumbar region without myelopathy or radiculopathy Scoliosis Goiter Restless leg syndrome ADHD (attention deficit hyperactivity disorder) Anxiety OCD (obsessive compulsive disorder) Hypertension GERD (gastroesophageal reflux disease) Vitamin D deficiency PCOS (polycystic ovarian syndrome) Body mass index [BMI]40.0-44.9, adult Irritable bowel syndrome with diarrhea Environmental and seasonal allergies Breast cancer screening by mammogram Dyslipidemia Gastritis Morbid obesity Hirsutism Telogen effluvium Heartburn Degenerative disc disease, lumbar Fibromyalgia Bipolar disorder Rosacea Acquired hypothyroidism Surgical History (Updated 09/19/24 @ 14:29 by TYRONE Green) S/P laparoscopic sleeve gastrectomy Hx of bariatric surgery Hx of shoulder surgery Hx of cholecystectomy Hx of colonoscopy Miscarriage History of nasal surgery History of rotator cuff surgery Family History Father Diabetes mellitus Mother OCD (obsessive compulsive disorder) EITAN (generalized anxiety disorder) HTN (hypertension) Cancer Cervical cancer Family/Other FH: mental illness Maternal Grandmother EITAN (generalized anxiety disorder) Glaucoma Mental health disorder Maternal Grandfather Alzheimer disease Maternal Aunt Hypothyroidism Mental health disorder Paternal Grandmother Unknown family medical history Paternal Grandfather Unknown family medical history Sister Hypothyroidism Paternal Aunt Substance use disorder Maternal Uncle Substance use disorder Social History Household Members Other:: brother Housing: Apartment Are you a primary child care counselor to a significant other at home: No Do you presently have visiting nurse or other home services: No Alcohol intake: never Patient Tobacco Use Status: Former Tobacco user Tobacco use type: Cigarette Cigarettes Per Day: 20 Years Smoked: 3 e-Cigarette/Vaping Use: Never Used service: No Current occupational status: disabled Cognitive needs: No Hearing needs: No Vision needs: Yes Behavioral Health Assessment Weight Management Therapy Therapy Notes Details Subjective: Pt reports she has been stressed and with increased in catastrophic thinking. Objective: PT presents for a follow up via Telehealth Worked in Sx management skills. Provided mindfulness and thought stopping techniques. Discussed behavioral activation plan and behavioral patters that self-sabotage her and maintain Sx. Also processed way to change/break unhealthy and not helpful patterns. Used CBT and CPT based interventions. Assessment/Response: * Mental status: * Risk reported/identified: Plan: continue bi-weekly sessions. Assessment & Plan Assessment & Plan (1) Unspecified mood [affective] disorder: Code(s): F39 - Unspecified mood [affective] disorder (2) Generalized anxiety disorder: Code(s): F41.1 - Generalized anxiety disorder Plan Homework: -fill out paper for [employer] membership and bring it over. -Use mindfulness excercise. F/up in 2 weeks. Next anamaria: 10/09 at 1pm, TH Telehealth Telehealth Telehealth Platform: [facility] Location of provider rendering services: other Location of patient: address on file Patient Identification confirmed using: Name, : Yes Telehealth method: video Patient verbally consented to treatment: Yes Patient verbally consented to billing insurance company: Yes Patient informed of any privacy concerns related to visit: Yes Minutes spent on Phone/Video with Pt.: 60 Coding Level of Care Code Established Pt Tele Psytx >53 mins (10265) Patient Type Established Diagnoses Unspecified mood [affective] disorder F39 Generalized anxiety disorder F41.1 Time Spent (min) 60
== END ==
LOC: HO.HBST 13:20
PROVIDERS: PCP Internal Medicine; Visit Provider Counselor Mental Health
DX: F39 Unspecified mood [affective] disorder (principal); F41.1 Generalized anxiety disorder
CPT/HCPCS: 90837

== ENCOUNTER 2024-10-09 13:30 | Outpatient (AMB) | payer OTHER, SELFPAY ==
--- NOTE | 2024-10-09 13:05 | MHC.WMTHER ---
Intake Intake Visit Reasons: VIDEO PO LSG 02/06/22 Allergies cat dander [CAT DANDER] Allergy (Mild, Verified 06/26/24 12:12) EYES- TEAR, ITCHY, face swells dog dander [DOG DANDER] Allergy (Mild, Verified 06/26/24 12:12) EYES- TEAR, ITCHY, hives duloxetine [From CYMBALTA] Adverse Reaction (Intermediate, Verified 06/26/24 12:12) VAGINAL BLEEDING PFSH Medical History (Updated 08/08/24 @ 13:21 by Puja Flores [facility]) Bilateral knee pain Sacroiliac pain Positive DANIELE (antinuclear antibody) Refused influenza vaccine PTSD (post-traumatic stress disorder) Insomnia PONV (postoperative nausea and vomiting) Gastric ulcer Cholelithiasis Sacroiliitis Spondylosis of lumbar region without myelopathy or radiculopathy Scoliosis Goiter Restless leg syndrome ADHD (attention deficit hyperactivity disorder) Anxiety OCD (obsessive compulsive disorder) Hypertension GERD (gastroesophageal reflux disease) Vitamin D deficiency PCOS (polycystic ovarian syndrome) Body mass index [BMI]40.0-44.9, adult Irritable bowel syndrome with diarrhea Environmental and seasonal allergies Breast cancer screening by mammogram Dyslipidemia Gastritis Morbid obesity Hirsutism Telogen effluvium Heartburn Degenerative disc disease, lumbar Fibromyalgia Bipolar disorder Rosacea Acquired hypothyroidism Surgical History (Updated 09/19/24 @ 14:29 by TYRONE Green) S/P laparoscopic sleeve gastrectomy Hx of bariatric surgery Hx of shoulder surgery Hx of cholecystectomy Hx of colonoscopy Miscarriage History of nasal surgery History of rotator cuff surgery Family History Father Diabetes mellitus Mother OCD (obsessive compulsive disorder) EITAN (generalized anxiety disorder) HTN (hypertension) Cancer Cervical cancer Family/Other FH: mental illness Maternal Grandmother EITAN (generalized anxiety disorder) Glaucoma Mental health disorder Maternal Grandfather Alzheimer disease Maternal Aunt Hypothyroidism Mental health disorder Paternal Grandmother Unknown family medical history Paternal Grandfather Unknown family medical history Sister Hypothyroidism Paternal Aunt Substance use disorder Maternal Uncle Substance use disorder Social History Household Members Other:: brother Housing: Apartment Are you a primary managed care manager to a significant other at home: No Do you presently have visiting nurse or other home services: No Alcohol intake: never Patient Tobacco Use Status: Former Tobacco user Tobacco use type: Cigarette Cigarettes Per Day: 20 Years Smoked: 3 e-Cigarette/Vaping Use: Never Used service: No Current occupational status: disabled Cognitive needs: No Hearing needs: No Vision needs: Yes Behavioral Health Assessment Weight Management Therapy Therapy Notes Details Subjective: PT reports feeling in a better place today . Current weight: 189Lbs. Her goal is 165Lbs. Objective: PT presents for a follow up via Telehealth Worked in habit building, decision making Used CBT and CPT based interventions. Assessment/Response: Mental status: euthymic. Ortiented x3, alert, open, engaged, functioning WNL. Risk reported/identified:None Assessment & Plan Assessment & Plan (1) Unspecified mood [affective] disorder: Code(s): F39 - Unspecified mood [affective] disorder (2) Generalized anxiety disorder: Code(s): F41.1 - Generalized anxiety disorder Plan f/up in 2 weeks. Next anamaria: 09/23/2024 @1pm, Telehealth [facility]health [facility] Location of provider rendering services: other Location of patient: address on file Patient Identification confirmed using: Name, : Yes Telehealth method: video Patient verbally consented to treatment: Yes Patient verbally consented to billing insurance company: Yes Patient informed of any privacy concerns related to visit: Yes Minutes spent on Phone/Video with Pt.: 55 Coding Level of Care Code Established Pt Tele Psytx >53 mins (77530) Patient Type Established Diagnoses Unspecified mood [affective] disorder F39 Generalized anxiety disorder F41.1 Time Spent (min) 55
== END 2024-10-09 15:12 | disposition home or self-care (01) ==
LOC: HO.HBST 13:30
PROVIDERS: PCP Internal Medicine; Visit Provider Counselor Mental Health
DX: F39 Unspecified mood [affective] disorder (principal); F41.1 Generalized anxiety disorder
CPT/HCPCS: 90837

== ENCOUNTER 2024-11-06 13:23 | Outpatient (AMB) | payer OTHER, SELFPAY ==
--- NOTE | 2024-11-06 13:15 | A.OFFWM_ITS ---
Intake Intake Visit Reasons: VIDEO PO LSG 02/06/22 Allergies cat dander [CAT DANDER] Allergy (Mild, Verified 06/26/24 12:12) EYES- TEAR, ITCHY, face swells dog dander [DOG DANDER] Allergy (Mild, Verified 06/26/24 12:12) EYES- TEAR, ITCHY, hives duloxetine [From CYMBALTA] Adverse Reaction (Intermediate, Verified 06/26/24 12:12) VAGINAL BLEEDING PFSH Medical History (Updated 08/08/24 @ 13:21 by Puja Flores [facility]) Bilateral knee pain Sacroiliac pain Positive DANIELE (antinuclear antibody) Refused influenza vaccine PTSD (post-traumatic stress disorder) Insomnia PONV (postoperative nausea and vomiting) Gastric ulcer Cholelithiasis Sacroiliitis Spondylosis of lumbar region without myelopathy or radiculopathy Scoliosis Goiter Restless leg syndrome ADHD (attention deficit hyperactivity disorder) Anxiety OCD (obsessive compulsive disorder) Hypertension GERD (gastroesophageal reflux disease) Vitamin D deficiency PCOS (polycystic ovarian syndrome) Body mass index [BMI]40.0-44.9, adult Irritable bowel syndrome with diarrhea Environmental and seasonal allergies Breast cancer screening by mammogram Dyslipidemia Gastritis Morbid obesity Hirsutism Telogen effluvium Heartburn Degenerative disc disease, lumbar Fibromyalgia Bipolar disorder Rosacea Acquired hypothyroidism Surgical History (Updated 09/19/24 @ 14:29 by TYRONE Green) S/P laparoscopic sleeve gastrectomy Hx of bariatric surgery Hx of shoulder surgery Hx of cholecystectomy Hx of colonoscopy Miscarriage History of nasal surgery History of rotator cuff surgery Family History Father Diabetes mellitus Mother OCD (obsessive compulsive disorder) EITAN (generalized anxiety disorder) HTN (hypertension) Cancer Cervical cancer Family/Other FH: mental illness Maternal Grandmother EITAN (generalized anxiety disorder) Glaucoma Mental health disorder Maternal Grandfather Alzheimer disease Maternal Aunt Hypothyroidism Mental health disorder Paternal Grandmother Unknown family medical history Paternal Grandfather Unknown family medical history Sister Hypothyroidism Paternal Aunt Substance use disorder Maternal Uncle Substance use disorder Social History Household Members Other:: brother Housing: Apartment Are you a primary health care / medical job titles to a significant other at home: No Do you presently have visiting nurse or other home services: No Alcohol intake: never Patient Tobacco Use Status: Former Tobacco user Tobacco use type: Cigarette Cigarettes Per Day: 20 Years Smoked: 3 e-Cigarette/Vaping Use: Never Used service: No Current occupational status: disabled Cognitive needs: No Hearing needs: No Vision needs: Yes Behavioral Health Assessment Weight Management Therapy Therapy Notes Details Subjective: PT presents feeling guilty as she was taking an medication, (thyroid one) and her health has been affected by this. Also, been feeling stressed, mild overwhelmed at times. Reported had a great time on thanksgiving but over indulged with some typical food. Already planning to prevent this to happen in upcoming Holidays. Objective: PT presents for a follow up via Telehealth. . Worked in an action plan to manage acute stress moments. Discussed triggers, early warning signs, and coping strategies. Discussed relational events with food that lead to overindulge . Identified that certain patterns start with restriction. Gently reflected on decision making to prevent restriction/skipping meals and keep meals on time for better eating during the holidays. Enhanced the client?s intrinsic motivation for maintaining healthy eating habits. Explore ambivalence and reinforce commitment to the nutrition/exercise plan. Constructive feedback provided. Assessment/Response: * Mental status: Guilty feelings, frustration but open and engaged, oriented x3 and functioning well. * Risk reported/identified: None PT active and responded well to interventions. Assessment & Plan Assessment & Plan (1) Unspecified mood [affective] disorder: Code(s): F39 - Unspecified mood [affective] disorder (2) Generalized anxiety disorder: Code(s): F41.1 - Generalized anxiety disorder Plan PT will be in cancelation list for 11/21/24 after 11am as Next anamaria will be in 1 month due to Holidays. Next anamaria: 12/04/2024 at 1pm, Telehealth. Telehealth Telehealth [facility]health [facility]: [facility] Location of provider rendering services: other Location of patient: address on file Patient Identification confirmed using: Name, : Yes Telehealth method: video Patient verbally consented to treatment: Yes Patient verbally consented to billing insurance company: Yes Patient informed of any privacy concerns related to visit: Yes Minutes spent on Phone/Video with Pt.: 60 Coding Level of Care Code Established Pt Tele Psytx >53 mins (10433) Patient Type Established Diagnoses Unspecified mood [affective] disorder F39 Generalized anxiety disorder F41.1 Time Spent (min) 60 Comment Start: 1:15, end time: 2:15pm
== END 2024-11-06 14:57 | disposition home or self-care (01) ==
LOC: HO.HBST 13:23
PROVIDERS: PCP Internal Medicine; Visit Provider Counselor Mental Health
DX: F39 Unspecified mood [affective] disorder (principal); F41.1 Generalized anxiety disorder
CPT/HCPCS: 90837

== ENCOUNTER → 2024-11-06 13:23 | Outpatient (BNVA) | payer OTHER, SELFPAY | PROVIDERS: PCP Internal Medicine; Visit Provider Counselor Mental Health ==

== ENCOUNTER 2024-11-14 09:54 | Outpatient (REF) | payer OTHER, SELFPAY ==
--- NOTE | ~2024-11-14 | MM_ITS ---
EXAMINATION: MM SCREENING DIGITAL BREAST TOMOSYNTHESIS, BILATERAL CLINICAL INFORMATION: Screening. Asymptomatic. COMPARISON: Mammography: Comparison is made with available priors TECHNIQUE: Digital breast mammography with tomosynthesis is performed in both the craniocaudal and mediolateral oblique views along with computer-aided detection (CAD). FINDINGS: There are scattered areas of fibroglandular density (ACR BI-RADS breast composition Category b). There are no significant masses, abnormal calcifications, or other abnormalities. MM/MM tomosynthesis screening BI IMPRESSION: No mammographic evidence of malignancy. ASSESSMENT: BI-RADS BI-RADS 1 - Negative RECOMMENDATION: Routine annual mammography screening. 1 year F/U This examination should not preclude the clinical evaluation of a suspicious palpable abnormality. This patient's information was entered into a reminder system with a target due date for their next mammogram. Electronically signed by: Iva Lewis DO 11/26/2024 04:54 PM SINA
[2024-11-14 10:58] LABS: Estimated Average Glucose 100 mg/dL; Hemoglobin A1C 117.9934 umol/L; Hemoglobin A1c % 5.1 % (<6.0); Total Hemoglobin (HGBA1C) 3604.1293 umol/L
[2024-11-14 11:30] LABS: Parathyroid Hormone Intact 61.4 pg/mL (8.7-77.1)
[2024-11-14 11:31] LABS: Alanine Aminotransferase 24 U/L (0-31); Anion Gap 13 (12-20); Aspartate Amino Transferase 17 U/L (5-31); Blood Urea Nitrogen 25 mg/dL (9-16); Calcium 9.9 mg/dL (8.4-10.2); Carbon Dioxide 30 mmol/L (22-29); Chloride 99 mmol/L (96-108); Cholesterol 197 mg/dL (<200); Estimated Glomerular Filt Rate > 60; Glucose Fasting 81 mg/dL (60-99); HDL Cholesterol 66 mg/dL (>40); LDL Cholesterol Calculated 119 mg/dL (<100); Potassium 4.4 mmol/L (3.3-5.1); Sodium 138 mmol/L (135-145); Triglycerides 64 mg/dL (<150)
[2024-11-14 11:54] LABS: Free T4 (Free Thyroxine) 1.18 ng/dL (0.71-1.85); Thyroid Stimulating Hormone 0.84 uIU/mL (0.32-4.0)
== END 2024-11-14 09:55 | disposition home or self-care (01) ==
LOC: HO.MAMMO 09:54
PROVIDERS: PCP Internal Medicine; Referring Provider Physician Assistant Surgical; Visit Provider Internal Medicine
DX: Z12.31 Encounter for screening mammogram for malignant neoplasm of breast (principal); M79.7 Fibromyalgia; E78.5 Hyperlipidemia, unspecified; E66.09 Other obesity due to excess calories; Z68.38 Body mass index [BMI] 38.0-38.9, adult; E03.9 Hypothyroidism, unspecified
CPT/HCPCS: 36415; 77063; 77067; 80048; 80061; 83036; 83970; 84439; 84443; 84450; 84460; 99212

== ENCOUNTER 2024-11-14 12:45 | Outpatient (AMB) | payer OTHER, SELFPAY ==
--- NOTE | 2024-11-14 13:27 | MHC.OFFVIS ---
Vital Signs 11/14/24 13:30 Height 5 ft 3 in Weight 187 lb 6.287 oz BMI 33.2 BP 120/92 H Blood Pressure Location Lt brachial Position Sitting Pulse 79 Pulse Source Pulse Oximeter Pulse Oximetry (%) 98 Oxygen Delivery Method Room Air Intake Visit Reasons: 6 month follow up Intake Note: Patient presents for 6 months follow up. Allergies cat dander [CAT DANDER] Allergy (Mild, Verified 11/14/24 13:29) EYES- TEAR, ITCHY, face swells dog dander [DOG DANDER] Allergy (Mild, Verified 11/14/24 13:29) EYES- TEAR, ITCHY, hives duloxetine [From CYMBALTA] Adverse Reaction (Intermediate, Verified 11/14/24 13:29) VAGINAL BLEEDING Medication List - Last Reconciled 11/14/24 by Sergio Taylor MD acetaminophen ER (Tylenol 8 Hour) 650 mg PO Q12H albuterol sulfate 90 mcg/actuation (Ventolin HFA) 1 - 2 puffs inhalation Q4H PRN alclometasone 0.05% appl topical BID PRN back brace As directed benzoyl peroxide 10% topical calcium carbonate-vitamin D3 250 mg-3.125 mcg (125 unit) 1 tab PO BID cariprazine (Vraylar) 3 mg PO DAILY cetirizine 10 mg PO DAILY PRN clonazepam mg PO ONCE PRN dextroamphetamine-amphetamine 25 mg ER (Adderall XR) 50 mg PO ONCE diclofenac sodium 1% topical fluticasone propionate 50 mcg/actuation 2 sprays intranasal DAILY ivermectin 1% (Soolantra) 1 appl topical DAILY levothyroxine 50 mcg PO DAILY 30 days metformin 500 mg PO BID 30 days multivitamin 1 tab PO DAILY Ozempic (semaglutide) 0.5 mg (0.736 mL) subcut QWEEK 30 days NS pregabalin 75 mg PO BID spironolactone 50 mg PO DAILY walker (Ultra-Light Rollator [facility] [place]) As directed, with seat HPI Comments Details: 44-year-old female with fibromyalgia returns for follow-up. She states that she is doing about the same overall. She was started on Ozempic recently and lost about 15 lb. She continues on Lyrica 75 mg Twice daily. She states that it helps her symptoms significantly. She states that she is sleepy in the morning, wakes up around noon time. [facility] Medical History Bilateral knee pain Sacroiliac pain Positive DANIELE (antinuclear antibody) Refused influenza vaccine PTSD (post-traumatic stress disorder) Insomnia PONV (postoperative nausea and vomiting) Gastric ulcer Cholelithiasis Sacroiliitis Spondylosis of lumbar region without myelopathy or radiculopathy Scoliosis Goiter Restless leg syndrome ADHD (attention deficit hyperactivity disorder) Anxiety OCD (obsessive compulsive disorder) Hypertension GERD (gastroesophageal reflux disease) Vitamin D deficiency PCOS (polycystic ovarian syndrome) Body mass index [BMI]40.0-44.9, adult Irritable bowel syndrome with diarrhea Environmental and seasonal allergies Breast cancer screening by mammogram Dyslipidemia Gastritis Morbid obesity Hirsutism Telogen effluvium Heartburn Degenerative disc disease, lumbar Fibromyalgia Bipolar disorder Rosacea Acquired hypothyroidism Surgical History S/P laparoscopic sleeve gastrectomy Hx of bariatric surgery Hx of shoulder surgery Hx of cholecystectomy Hx of colonoscopy Miscarriage History of nasal surgery History of rotator cuff surgery Family History Father Diabetes mellitus Mother OCD (obsessive compulsive disorder) EITAN (generalized anxiety disorder) HTN (hypertension) Cancer Cervical cancer Family/Other FH: mental illness Maternal Grandmother EITAN (generalized anxiety disorder) Glaucoma Mental health disorder Maternal Grandfather Alzheimer disease Maternal Aunt Hypothyroidism Mental health disorder Paternal Grandmother Unknown family medical history Paternal Grandfather Unknown family medical history Sister Hypothyroidism Paternal Aunt Substance use disorder Maternal Uncle Substance use disorder Social History Household Members Other:: brother Housing: Apartment Are you a primary neurocritical care physician to a significant other at home: No Do you presently have visiting nurse or other home services: No Alcohol intake: never Patient Tobacco Use Status: Former Tobacco user Tobacco use type: Cigarette Cigarettes Per Day: 20 Years Smoked: 3 e-Cigarette/Vaping Use: Never Used service: No Current occupational status: disabled Cognitive needs: No Hearing needs: No Vision needs: Yes Review of Systems Musc Reports arthralgias Physical Exam Vital Signs: Last Vital Signs Pulse 79 11/14/24 13:30 BP 120/92 H 11/14/24 13:30 Pulse Ox 98 11/14/24 13:30 Oxygen Delivery Method Room Air 11/14/24 13:30 BMI result Body Mass Index 33.2 Const General: cooperative, healthy appearing and comfortable Nutritional Appearance: obese Orientation/consciousness: patient oriented x3 Limitations: no limitations HEENT Head: Yes normocephalic and Yes atraumatic Resp Effort & Inspection: normal respiratory effort and able to speak in complete sentences Auscultation: clear to auscultation bilaterally Cardio Rate: regular rate Rhythm: regular rhythm Skin General skin exam: no rashes or lesions noted Neuro General: patient oriented x3 Extrem Other: No active synovitis Normal nailfold capillaroscopy Diffuse fibromyalgia tender points Assessment & Plan Assessment & Plan (1) Fibromyalgia: Code(s): M79.7 - Fibromyalgia Category: Medical Plan: This is a 44-year-old female with fibromyalgia who presents for follow-up. Doing well overall. Remains on Lyrica 75 mg Twice daily. She feels sleepy in the morning, until noon time. Advised patient to try skipping the morning dose of Lyrica, if fibromyalgia symptoms are worse, try taking both doses of Lyrica bedtime. Follow-up in 6 months Plan I spent 15 minutes reviewing patient's chart, evaluating patient, counseling patient and documenting in the chart Medications: Refilled pregabalin 75 mg PO BID 60 caps 5RF M79.7 - Fibromyalgia Coding Level of Care Code Est Pt Level 3 (39705) Diagnoses Fibromyalgia M79.7
[2024-11-14 13:30] VITALS: BP 120/92; PULSE 79; O2SAT 98; BMI 33.2
== END 2024-11-14 13:54 | disposition home or self-care (01) ==
PROVIDERS: PCP Internal Medicine; Visit Provider Student in an Organized Health Care Education/Training Program
DX: M79.7 Fibromyalgia (principal)
CPT/HCPCS: 99213

== ENCOUNTER → 2024-11-14 13:15 | Outpatient (BNV) | payer OTHER, SELFPAY | PROVIDERS: PCP Internal Medicine; Referring Provider Physician Assistant Surgical; Visit Provider Internal Medicine | DX: Z12.31 Encounter for screening mammogram for malignant neoplasm of breast (principal) | CPT/HCPCS: 77063; 77067 ==

== ENCOUNTER 2024-11-15 11:28 | Outpatient (AMB) | payer OTHER, SELFPAY ==
[2024-11-15 10:53] VITALS: BMI 33.0
--- NOTE | 2024-11-15 10:53 | A.OFFVIS_ITS ---
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: No Allergies cat dander [CAT DANDER] Allergy (Mild, Verified 11/14/24 13:29) EYES- TEAR, ITCHY, face swells dog dander [DOG DANDER] Allergy (Mild, Verified 11/14/24 13:29) EYES- TEAR, ITCHY, hives duloxetine [From CYMBALTA] Adverse Reaction (Intermediate, Verified 11/14/24 13:29) VAGINAL BLEEDING Medication List - Last Reconciled 11/15/24 by TYRONE Green acetaminophen ER (Tylenol 8 Hour) 650 mg PO Q12H albuterol sulfate 90 mcg/actuation (Ventolin HFA) 1 - 2 puffs inhalation Q4H PRN alclometasone 0.05% appl topical BID PRN back brace As directed benzoyl peroxide 10% topical calcium carbonate-vitamin D3 250 mg-3.125 mcg (125 unit) 1 tab PO BID cariprazine (Vraylar) 3 mg PO DAILY cetirizine 10 mg PO DAILY PRN clonazepam mg PO ONCE PRN dextroamphetamine-amphetamine 25 mg ER (Adderall XR) 50 mg PO ONCE diclofenac sodium 1% topical fluticasone propionate 50 mcg/actuation 2 sprays intranasal DAILY ivermectin 1% (Soolantra) 1 appl topical DAILY levothyroxine 50 mcg PO DAILY 30 days metformin 500 mg PO BID 30 days multivitamin 1 tab PO DAILY Ozempic (semaglutide) 0.5 mg (0.736 mL) subcut QWEEK 30 days NS pregabalin 75 mg PO BID spironolactone 50 mg PO DAILY walker (Ultra-Light Rollator misc) As directed, with seat HPI Comments Details: 44-year-old female returns to the office today in follow-up. She is approximately 2 years 9 months status post sleeve gastrectomy performed on 02/06/2022. She had been followed by our registered dietitian, Jazmín in the past. Weight today is 186.2 lb with a BMI of 33. Taking mvi and brenda + D She states she has not been going to the [facility] [place], doing exercise at home. Eating 11 forks of protein at night Preop weight (02/11/2022) 205# weight at 3 MO 176# weight at 6 MO PO 173 weight weight (12/09/22) 188# Goal 165 pounds wakes at 10 am meal plan: 10 am 2 eggs w vegetables, 1/4 c fresh berries, 4 oz coffee w tsp 11/21 and 11/21 12-2pm Orgain shake, 1 scoop in 8 oz almond milk 4-6 pm another shake, 2 scoops in 8 oz almond milk 630 pm 7 forks of protein and 7 forks of vegetables, no rice or beans. Drinkin oz water 20 oz gatorade zero Exercise plan: stationary bike at home, 2-3 x week, 300 calories PFSH Medical History Bilateral knee pain Sacroiliac pain Positive DANIELE (antinuclear antibody) Refused influenza vaccine PTSD (post-traumatic stress disorder) Insomnia PONV (postoperative nausea and vomiting) Gastric ulcer Cholelithiasis Sacroiliitis Spondylosis of lumbar region without myelopathy or radiculopathy Scoliosis Goiter Restless leg syndrome ADHD (attention deficit hyperactivity disorder) Anxiety OCD (obsessive compulsive disorder) Hypertension GERD (gastroesophageal reflux disease) Vitamin D deficiency PCOS (polycystic ovarian syndrome) Body mass index [BMI]40.0-44.9, adult Irritable bowel syndrome with diarrhea Environmental and seasonal allergies Breast cancer screening by mammogram Dyslipidemia Gastritis Morbid obesity Hirsutism Telogen effluvium Heartburn Degenerative disc disease, lumbar Fibromyalgia Bipolar disorder Rosacea Acquired hypothyroidism Surgical History S/P laparoscopic sleeve gastrectomy Hx of bariatric surgery Hx of shoulder surgery Hx of cholecystectomy Hx of colonoscopy Miscarriage History of nasal surgery History of rotator cuff surgery Family History Father Diabetes mellitus Mother OCD (obsessive compulsive disorder) EITAN (generalized anxiety disorder) HTN (hypertension) Cancer Cervical cancer Family/Other FH: mental illness Maternal Grandmother EITAN (generalized anxiety disorder) Glaucoma Mental health disorder Maternal Grandfather Alzheimer disease Maternal Aunt Hypothyroidism Mental health disorder Paternal Grandmother Unknown family medical history Paternal Grandfather Unknown family medical history Sister Hypothyroidism Paternal Aunt Substance use disorder Maternal Uncle Substance use disorder Social History Household Members Other:: brother Housing: Apartment Are you a primary care manager cna to a significant other at home: No Do you presently have visiting nurse or other home services: No Alcohol intake: never Patient Tobacco Use Status: Former Tobacco user Tobacco use type: Cigarette Cigarettes Per Day: 20 Years Smoked: 3 e-Cigarette/Vaping Use: Never Used service: No Current occupational status: disabled Cognitive needs: No Hearing needs: No Vision needs: Yes Telehealth Telehealth Telehealth Platform: Telephone Location of provider rendering services: practice address Location of patient: address on file Patient Identification confirmed using: Name, : Yes Telehealth method: voice only Patient verbally consented to treatment: Yes Patient verbally consented to billing insurance company: Yes Patient informed of any privacy concerns related to visit: Yes Minutes spent on Phone/Video with Pt.: 15 Assessment & Plan Assessment & Plan (1) S/P laparoscopic sleeve gastrectomy: Code(s): Z98.84 - Bariatric surgery status Category: Surgical Plan: Patient was once again encouraged to follow the meal plan as listed above. She was encouraged to increase her exercise, again, to 4-5 days per week, 400 calories burned per session. She states that she is going to look into joining the [facility] [place]. We will have her return to the office as scheduled. Encouraged to text her weight weekly and text with any questions.
== END 2024-11-15 11:30 | disposition home or self-care (01) ==
LOC: HO.HBS 11:28
PROVIDERS: PCP Internal Medicine; Visit Provider Physician Assistant Surgical
DX: E66.811 Obesity, class 1 (principal); Z68.33 Body mass index [BMI] 33.0-33.9, adult; Z90.3 Acquired absence of stomach [part of]; Z98.84 Bariatric surgery status
CPT/HCPCS: 99213; G2211

== ENCOUNTER 2024-12-04 13:48 | Outpatient (AMB) | payer OTHER, SELFPAY ==
--- NOTE | 2024-12-04 13:00 | A.OFFWM_ITS ---
Intake Intake Visit Reasons: VIDEO PO LSG 02/06/22 Allergies cat dander [CAT DANDER] Allergy (Mild, Verified 11/14/24 13:29) EYES- TEAR, ITCHY, face swells dog dander [DOG DANDER] Allergy (Mild, Verified 11/14/24 13:29) EYES- TEAR, ITCHY, hives duloxetine [From CYMBALTA] Adverse Reaction (Intermediate, Verified 11/14/24 13:29) VAGINAL BLEEDING PFSH Medical History Bilateral knee pain Sacroiliac pain Positive DANIELE (antinuclear antibody) Refused influenza vaccine PTSD (post-traumatic stress disorder) Insomnia PONV (postoperative nausea and vomiting) Gastric ulcer Cholelithiasis Sacroiliitis Spondylosis of lumbar region without myelopathy or radiculopathy Scoliosis Goiter Restless leg syndrome ADHD (attention deficit hyperactivity disorder) Anxiety OCD (obsessive compulsive disorder) Hypertension GERD (gastroesophageal reflux disease) Vitamin D deficiency PCOS (polycystic ovarian syndrome) Body mass index [BMI]40.0-44.9, adult Irritable bowel syndrome with diarrhea Environmental and seasonal allergies Breast cancer screening by mammogram Dyslipidemia Gastritis Morbid obesity Hirsutism Telogen effluvium Heartburn Degenerative disc disease, lumbar Fibromyalgia Bipolar disorder Rosacea Acquired hypothyroidism Surgical History S/P laparoscopic sleeve gastrectomy Hx of bariatric surgery Hx of shoulder surgery Hx of cholecystectomy Hx of colonoscopy Miscarriage History of nasal surgery History of rotator cuff surgery Family History Father Diabetes mellitus Mother OCD (obsessive compulsive disorder) EITAN (generalized anxiety disorder) HTN (hypertension) Cancer Cervical cancer Family/Other FH: mental illness Maternal Grandmother EITAN (generalized anxiety disorder) Glaucoma Mental health disorder Maternal Grandfather Alzheimer disease Maternal Aunt Hypothyroidism Mental health disorder Paternal Grandmother Unknown family medical history Paternal Grandfather Unknown family medical history Sister Hypothyroidism Paternal Aunt Substance use disorder Maternal Uncle Substance use disorder Social History Household Members Other:: brother Housing: Apartment Are you a primary director of healthcare systems to a significant other at home: No Do you presently have visiting nurse or other home services: No Alcohol intake: never Patient Tobacco Use Status: Former Tobacco user Tobacco use type: Cigarette Cigarettes Per Day: 20 Years Smoked: 3 e-Cigarette/Vaping Use: Never Used service: No Current occupational status: disabled Cognitive needs: No Hearing needs: No Vision needs: Yes Behavioral Health Assessment Weight Management Therapy Therapy Notes Details Subjective: The patient presents for a follow-up visit via Telehealth. She reports struggling to get back on track with her eating and exercise habits after the holidays. In addition, the patient mentions increased stress due to ongoing challenges with her boyfriend, which has contributed to her difficulties in maintaining consistency with her healthy habits. Regarding her mood, she did not provide specific details but indicated ongoing challenges with managing stress and maintaining her routine. Objective: During the session, rational recovery interventions were implemented to address the patient's challenges. The cycle of overindulgence was discussed, and the patient was able to identify how it started and the ongoing challenges she faces, including the stress stemming from her relationship. We processed behaviors she dislikes that lead to unhealthy choices and developed a plan to manage and modify these behaviors. Cognitive restructuring techniques were used to address her [id number] thinking, which impacts her decision-making. We also reflected on habit-building strategies to promote consistency and successful long-term behavior change. Assessment/Response: * Mental status: WNL * Risk reported/identified: WNL. The patient continues to face challenges with consistency in her eating and exercise habits, with additional stress from her relationship affecting her emotional well-being. The interventions used today, including cognitive restructuring and habit-building strategies, appear to be beneficial in a ddressing these challenges. The patient is actively engaged in her recovery process and is becoming more aware of the unhelpful behaviors and thought patterns that contribute to her difficulties. Assessment & Plan Assessment & Plan (1) Unspecified mood [affective] disorder: Code(s): F39 - Unspecified mood [affective] disorder (2) Generalized anxiety disorder: Code(s): F41.1 - Generalized anxiety disorder Plan * Continue meeting on a bi-weekly basis for ongoing support. * Encourage the patient to work on stress management strategies, particularly regarding the challenges with her boyfriend, and explore ways to cope with relationship stress in healthier ways. * Focus on modifying unhelpful behaviors and using cognitive strategies to address [id number] thinking. * Reinforce habit-building strategies and planning for consistent engagement in healthy eating and exercise habits. * Monitor progress and adjust interventions as needed. Next anamaria: 12/18/2024 at 1pm, TH Telehealth Telehealth Telehealth Platform: [employer] Location of provider rendering services: other Location of patient: address on file Patient Identification confirmed using: Name, : Yes Telehealth method: video Patient verbally consented to treatment: Yes Patient verbally consented to billing insurance company: Yes Patient informed of any privacy concerns related to visit: Yes Minutes spent on Phone/Video with Pt.: 60 Coding Level of Care Code Established Pt Tele Psytx >53 mins (77393) Patient Type Established Diagnoses Unspecified mood [affective] disorder F39 Generalized anxiety disorder F41.1 Time Spent (min) 60
== END 2024-12-04 14:05 | disposition home or self-care (01) ==
LOC: HO.HBST 13:48
PROVIDERS: PCP Internal Medicine; Visit Provider Counselor Mental Health
DX: F39 Unspecified mood [affective] disorder (principal); F41.1 Generalized anxiety disorder
CPT/HCPCS: 90837

== ENCOUNTER → 2024-12-04 13:48 | Outpatient (BNVA) | payer OTHER, SELFPAY | PROVIDERS: PCP Internal Medicine; Visit Provider Counselor Mental Health ==

== ENCOUNTER 2024-12-25 13:32 | Outpatient (AMB) | payer OTHER, SELFPAY ==
--- NOTE | 2024-12-25 13:05 | A.OFFWM_ITS ---
Intake Intake Visit Reasons: VIDEO PO LSG 02/06/22 Allergies cat dander [CAT DANDER] Allergy (Mild, Verified 01/02/25 12:56) EYES- TEAR, ITCHY, face swells dog dander [DOG DANDER] Allergy (Mild, Verified 01/02/25 12:56) EYES- TEAR, ITCHY, hives duloxetine [From CYMBALTA] Adverse Reaction (Intermediate, Verified 01/02/25 12:56) VAGINAL BLEEDING PFSH Medical History Bilateral knee pain Sacroiliac pain Positive DANIELE (antinuclear antibody) Refused influenza vaccine PTSD (post-traumatic stress disorder) Insomnia PONV (postoperative nausea and vomiting) Gastric ulcer Cholelithiasis Sacroiliitis Spondylosis of lumbar region without myelopathy or radiculopathy Scoliosis Goiter Restless leg syndrome ADHD (attention deficit hyperactivity disorder) Anxiety OCD (obsessive compulsive disorder) Hypertension GERD (gastroesophageal reflux disease) Vitamin D deficiency PCOS (polycystic ovarian syndrome) Body mass index [BMI]40.0-44.9, adult Irritable bowel syndrome with diarrhea Environmental and seasonal allergies Breast cancer screening by mammogram Dyslipidemia Gastritis Morbid obesity Hirsutism Telogen effluvium Heartburn Degenerative disc disease, lumbar Fibromyalgia Bipolar disorder Rosacea Acquired hypothyroidism Surgical History S/P laparoscopic sleeve gastrectomy Hx of bariatric surgery Hx of shoulder surgery Hx of cholecystectomy Hx of colonoscopy Miscarriage History of nasal surgery History of rotator cuff surgery Family History Father Diabetes mellitus Mother OCD (obsessive compulsive disorder) EITAN (generalized anxiety disorder) HTN (hypertension) Cancer Cervical cancer Family/Other FH: mental illness Maternal Grandmother EITAN (generalized anxiety disorder) Glaucoma Mental health disorder Maternal Grandfather Alzheimer disease Maternal Aunt Hypothyroidism Mental health disorder Paternal Grandmother Unknown family medical history Paternal Grandfather Unknown family medical history Sister Hypothyroidism Paternal Aunt Substance use disorder Maternal Uncle Substance use disorder Social History Household Members Other:: brother Housing: Apartment Are you a primary family day care provider to a significant other at home: No Do you presently have visiting nurse or other home services: No Alcohol intake: never Patient Tobacco Use Status: Former Tobacco user Tobacco use type: Cigarette Cigarettes Per Day: 20 Years Smoked: 3 e-Cigarette/Vaping Use: Never Used service: No Current occupational status: disabled Cognitive needs: No Hearing needs: No Vision needs: Yes Behavioral Health Assessment Weight Management Therapy Therapy Notes Details Subjective: The patient reports feeling depressed but indicates that a situation with her partner has been resolved. Objective: PT presents for a f/up visit via Telehealth. . CBT-based interventions were implemented in this session. Focused on behavioral activation to address depressive symptoms. Explored external motivations, including potential volunteer opportunities. Discussed self-sabotage patterns and identified areas where these behaviors may hinder progress. PHQ-9 administered. Showing active Sx of depression. Assessment/Response: * Mental status: he patient was alert, cooperative, and engaged. Mood appeared low, with some signs of anxiety, but she was open to discussing strategies for improvement. * Risk reported/identified: None Questionnaires PHQ-9 Over the last 2 weeks, how often have you been bothered by any of the following problems? 1. Little interest or pleasure in doing things: several days 2. Feeling down, depressed, or hopeless: several days 3. Trouble falling or staying asleep, or sleeping too much: nearly every day 4. Feeling tired or having little energy: nearly every day 5. Poor appetite or overeating: more than half the days 6. Feeling bad about yourself - or that you are a failure or have let yourself or your family down: nearly every day 7. Trouble concentrating on things, such as reading the newspaper or watching television: not at all 8. Moving or speaking so slowly that other people could have noticed. Or the opposite - being so fidgety or restless that you have been moving around a lot more than usual: several days 9. Thoughts that you would be better off or of hurting yourself in some way: not at all Total score: 14 Depression Screening Interpretation: Positive Depression Screening Done: Yes 95243 - PHQ-9 Billing: Yes Source: Developed by Drs. Parviz Lora, Ghazala Chang, Ryan Holland and colleagues, with an educational bryan from [employer]. Assessment & Plan Assessment & Plan (1) Unspecified mood [affective] disorder: Code(s): F39 - Unspecified mood [affective] disorder (2) Generalized anxiety disorder: Code(s): F41.1 - Generalized anxiety disorder Plan Continue working on Sx management and strategies to increase sense of control despite medical challenges. F/up in 2 weeks Next anamaria: 01/08/2025 at 1pm, Via Telehealth Telehealth Telehealth Telehealth Platform: [employer] Location of provider rendering services: other Location of patient: address on file Patient Identification confirmed using: Name, : Yes Telehealth method: video Patient verbally consented to treatment: Yes Patient verbally consented to billing insurance company: Yes Patient informed of any privacy concerns related to visit: Yes Minutes spent on Phone/Video with Pt.: 60 Coding Level of Care Code Established Pt Tele Psytx >53 mins (88774) Patient Type Established Diagnoses Unspecified mood [affective] disorder F39 Generalized anxiety disorder F41.1 Additional Codes PHQ-9 - 65726 - PHQ-9 Billing: Yes ([id number]) Time Spent (min) 60
--- OUTSIDE RECORDS SUMMARY | 2024-12-25 14:58 | XMS_ITS | Referral Summary ---
Author Organization [facility] Address [address] Main Number: [phone] (12/06) [place] [address] Care Team Providers Care Fitter And Turner Name Role Phone Unavailable Primary Care Provider Unavailabl e Social History Tobacco Use Types Packs/Day Years Used Date Smoking Tobacco: Never Assessed Sex and Gender Information Value Date Recorded Sex Assigned at Female 06/10/2024 4:31 PM EDT Gender Identity Female 06/10/2024 4:31 PM EDT Sexual Orientation Not on file Plan of Treatment Upcoming Encounters Date Type Department Care Team (Late st Contact Info) Description 07/16/2025 10:00 AM EDT Office Visit [facility] [address] [place] [address] Jannette Wolfe NP [address] [place] [address]
--- OUTSIDE RECORDS SUMMARY | 2024-12-25 14:58 | XMS_ITS | Clinical Summary ---
Author Organization [facility] Address [address] Main Number: [phone] (12/06) [place] [address] Care Team Providers Care Hospital Director Name Role Phone Unavailable Primary Care Provider [...] Description 07/16/2025 10:00 AM EDT Office Visit [facility] [address] [place] [phone] Jannette Wolef NP [address] [place] [address] Health Maintenance Due Date Last Done Comments Diabetes Screening 1980 HIV Lifetime Screening 1980 Hepatitis B sAg Lifetime Screening 1980 Hepatitis C Antibody Lifetim e Screening 1980 LIPID PANEL 1980 THRIVE SCREENING 1981 Oral Health Screen 1981 HEIP Disability Screen 1986 BEHAVIORAL HEALTH SCREEN 1993 Psych Substance Use Screen 1993 Relationship Safety Screening 1996 DTAP/TDAP VACCINE (1 - Tdap) 2000 Cervical Cancer Screening 2002 Colposcopy 2002 PAP SMEAR 2002 Pap + HPV 2002 MAMMOGRAM 2021 COVID-19 Vaccine (2023-2 5 season) 2024 INFLUENZA VACCINE (#1) 2024 Zoster Vaccine (1 of 2) 2031 HPV VACCINES Aged Out No longer eligi ble based on patient's age to complete this topic IPV VACCINES Aged Out No longer eligi ble based on patient's age to complete this topic Pneumonia Vaccine 0-64 Aged Out No lo nger eligible based on patient's age to complete this topic ROTAVIRUS VACCINES Aged Out No longer eligible based on patient's age to complete this topic
== END 2024-12-25 14:43 | disposition home or self-care (01) ==
LOC: HO.HBST 13:32
PROVIDERS: PCP Internal Medicine; Visit Provider Counselor Mental Health
DX: F39 Unspecified mood [affective] disorder (principal); F41.1 Generalized anxiety disorder
CPT/HCPCS: 90837

== ENCOUNTER 2025-01-02 12:35 | Outpatient (AMB) | payer OTHER, SELFPAY ==
[2025-01-02 12:39] VITALS: BP 110/84; PULSE 88; RESP 14; TEMP 36.7; O2SAT 99; BMI 33.8
--- NOTE | 2025-01-02 12:39 | MHC.PC.OV ---
Vital Signs 01/02/25 12:39 Height 5 ft 3 in Weight 191 lb BMI 33.8 BP 110/84 Blood Pressure Location Rt brachial Position Sitting Respiration 14 Pulse 88 Pulse Source Pulse Oximeter Temp 98.0 F Temp Source Oral Pulse Oximetry (%) 99 Oxygen Delivery Method Room Air Intake Visit Reasons: Annual PE/Needs late appt due to travel Intake Note: Pt is here today for her PE: last mammogram 11/14/24, papsmear 11/02/22 Allergies cat dander [CAT DANDER] Allergy (Mild, Verified 01/02/25 12:56) EYES- TEAR, ITCHY, face swells dog dander [DOG DANDER] Allergy (Mild, Verified 01/02/25 12:56) EYES- TEAR, ITCHY, hives duloxetine [From CYMBALTA] Adverse Reaction (Intermediate, Verified 01/02/25 12:56) VAGINAL BLEEDING Medication List - Last Reconciled 01/02/25 by Elke Cross MD acetaminophen ER (Tylenol 8 Hour) 650 mg PO Q12H albuterol sulfate 90 mcg/actuation (Ventolin HFA) 1 - 2 puffs inhalation Q4H PRN alclometasone 0.05% appl topical BID PRN back brace As directed benzoyl peroxide 10% topical calcium carbonate-vitamin D3 250 mg-3.125 mcg (125 unit) 1 tab PO BID cariprazine (Vraylar) 3 mg PO DAILY cetirizine 10 mg PO DAILY PRN clonazepam mg PO ONCE PRN dextroamphetamine-amphetamine 25 mg ER (Adderall XR) 50 mg PO ONCE diclofenac sodium 1% topical fluticasone propionate 50 mcg/actuation 2 sprays intranasal DAILY ivermectin 1% (Soolantra) 1 appl topical DAILY levothyroxine 50 mcg PO DAILY 30 days metformin 500 mg PO BID 30 days multivitamin 1 tab PO DAILY Ozempic (semaglutide) 0.5 mg (0.736 mL) subcut QWEEK 30 days NS pregabalin 75 mg PO BID spironolactone 50 mg PO DAILY walker (Ultra-Light Rollator misc) As directed, with seat Tobacco use date assessed: 01/02/25 Dental Screening Dental Screen Date: 01/02/25 HPI Annual PE/Needs late appt due to travel HPI Details 44-year-old lady with hypothyroidism, obesity, and hypertension, here today for her physical exam.. - She has a history of PCOS managed with Metformin and Spironolactone, effective in mitigating symptoms. - Insulin resistance under control - Negative experience with the influenza vaccine due to adverse reactions, warranting avoidance. - Symptoms of anxiety and depression are improving under ongoing psychiatric care. - Fibromyalgia results in episodes of fatigue and generalized pain, with medication being adjusted to reduce adverse effects. - Successful weight management through lifestyle changes and medical treatment, aiding comorbidity control. - Achieved hair growth control with Spironolactone. - Mammogram is up to date. - Pap smear conducted on November 14, 2022, with another scheduled within the regular interval due to family cancer history. - COVID vaccinations completed, last dose being the fifth. - Tdap booster is valid until 2027. - Flu vaccinations are avoided due to severe adverse reactions. [facility] Medical History Bilateral knee pain Sacroiliac pain Positive DANIELE (antinuclear antibody) Refused influenza vaccine PTSD (post-traumatic stress disorder) Insomnia PONV (postoperative nausea and vomiting) Gastric ulcer Cholelithiasis Sacroiliitis Spondylosis of lumbar region without myelopathy or radiculopathy Scoliosis Goiter Restless leg syndrome ADHD (attention deficit hyperactivity disorder) Anxiety OCD (obsessive compulsive disorder) Hypertension GERD (gastroesophageal reflux disease) Vitamin D deficiency PCOS (polycystic ovarian syndrome) Body mass index [BMI]40.0-44.9, adult Irritable bowel syndrome with diarrhea Environmental and seasonal allergies Breast cancer screening by mammogram Dyslipidemia Gastritis Morbid obesity Hirsutism Telogen effluvium Heartburn Degenerative disc disease, lumbar Fibromyalgia Bipolar disorder Rosacea Acquired hypothyroidism Surgical History S/P laparoscopic sleeve gastrectomy Hx of bariatric surgery Hx of shoulder surgery Hx of cholecystectomy Hx of colonoscopy Miscarriage History of nasal surgery History of rotator cuff surgery Family History Father Diabetes mellitus Mother OCD (obsessive compulsive disorder) EITAN (generalized anxiety disorder) HTN (hypertension) Cancer Cervical cancer Family/Other FH: mental illness Maternal Grandmother EITAN (generalized anxiety disorder) Glaucoma Mental health disorder Maternal Grandfather Alzheimer disease Maternal Aunt Hypothyroidism Mental health disorder Paternal Grandmother Unknown family medical history Paternal Grandfather Unknown family medical history Sister Hypothyroidism Paternal Aunt Substance use disorder Maternal Uncle Substance use disorder Social History Household Members Other:: brother Housing: Apartment Are you a primary critical care physician to a significant other at home: No Do you presently have visiting nurse or other home services: No Alcohol intake: never Patient Tobacco Use Status: Former Tobacco user Tobacco use type: Cigarette Cigarettes Per Day: 20 Years Smoked: 3 e-Cigarette/Vaping Use: Never Used service: No Current occupational status: disabled Cognitive needs: No Hearing needs: No Vision needs: Yes Female Reproductive History Menstrual Date of last pap smear: 11/14/24 Other: sees Ivana Kelly NP at [facility] probate paralegal Questionnaire PHQ-9 Over the last 2 weeks, how often have you been bothered by any of the following problems? 1. Little interest or pleasure in doing things: not at all 2. Feeling down, depressed, or hopeless: several days 3. Trouble falling or staying asleep, or sleeping too much: more than half the days 4. Feeling tired or having little energy: more than half the days 5. Poor appetite or overeating: not at all 6. Feeling bad about yourself - or that you are a failure or have let yourself or your family down: not at all 7. Trouble concentrating on things, such as reading the newspaper or watching television: several days 8. Moving or speaking so slowly that other people could have noticed. Or the opposite - being so fidgety or restless that you have been moving around a lot more than usual: not at all 9. Thoughts that you would be better off or of hurting yourself in some way: not at all Total score: 6 Depression Screening Interpretation: Positive (Followed by psychiatry, Hunter Dixon at [facility]) Depression Screening Follow-up: Existing condition, In treatment and Community Mental Health Worker F/U Depression Screening Done: Yes 88914 - PHQ-9 Billing: Yes Source: Developed by Drs. Parviz Lora, Ghazala Chang, Ryan Holland and colleagues, with an educational bryan from [employer]. Thrive Questionnaire Date Thrive assessed: 12/30/24 I am a: Patient What is your living situation today?: I have a place to live, but I am worried about losing it in the future Within the past 12 months, did the food you bought not last and you didn't have the money to get more?: Often true Within the past 12 months, did you worry whether your food would run out before you got money to buy more?: Often true Do you have trouble paying for medicines?: No Do you have trouble getting transportation to medical appointments?: Yes Do you have trouble paying your heating and electricity bill?: Yes Do you have trouble taking care of your child, family member or friend?: Yes Do you have trouble with day-to-day activities such as bathing, preparing meals, shopping, managing finances, etc.?: Yes Are you currently unemployed and looking for a job?: No Are you interested in more education?: No Currently or been in a relationship where the following occur: Controlled Emotionally THRIVE Score: 6 AUDIT C Alcohol Use Questionnaire (AUDIT-C) 1. How often do you have a drink containing alcohol?: Monthly or less 2. How many drinks containing alcohol do you have on a typical day when you are drinking?: 1 or 2 3. How often do you have six or more drinks on one occasion?: Never Total Score: 1 EITAN-7 AMB Questionnaire EITAN-7 Date EITAN - 7 assessed: 01/02/25 Feeling nervous, anxious, or on edge: 1 = Several days Not being able to stop or control worryin = More than half the days Worrying too much about different things: 2 = More than half the days Trouble relaxin = More than half the days Being so restless that it is hard to sit still: 0 = Not at all Becoming easily annoyed or irritable: 1 = Several days Feeling afraid as if something awful might happen: 1 = Several days Total EITAN-7 score (0-4 normal; 5-9 mild; 10-14 moderate; 15-21 severe): 9 Source: Developed by Drs. Parviz Lora, Ghazala Chang, Ryan Holland and colleagues, with an educational bryan from [employer]. EITAN-7 Assessment Billing EITAN-7 Assessment Tool: EITAN-7 Assessment 66896 Review of Systems Const Denies fever(s), Denies headache(s) and Denies weakness Eyes Details: Goes to [facility] ENT Denies dizziness, Denies headache(s), Denies nasal congestion and Denies nasal discharge Card Denies chest pain, Denies lightheadedness, Denies palpitations and Denies dyspnea Resp Denies chest congestion, Denies cough, Denies dyspnea and Denies wheezing GI Denies abdominal pain and Denies change in bowel habits Details: Goes to [facility], sees Cuca Kelly, up-to-date with her cervical cancer screening and pelvic exam. Denies hematuria, Denies urinary frequency, Denies dysuria and Denies urinary urgency Musc Reports as per HPI Neuro Denies dizziness, Denies headache(s) and Denies weakness Psych Reports no additional complaints Endo Denies polydipsia, Denies polyuria and Denies palpitations Daniel/Lymph Denies easy bruising Aller/Immun Denies seasonal rhinorrhea and Denies wheezing Physical exam (Primary Care) Vital Signs: Last Vital Signs Temp 98.0 F 01/02/25 12:39 Pulse 88 01/02/25 12:39 Resp 14 01/02/25 12:39 BP 110/84 01/02/25 12:39 Pulse Ox 99 01/02/25 12:39 Oxygen Delivery Method Room Air 01/02/25 12:39 BMI result Body Mass Index 33.8 Tobacco/Smoking Status: Tobacco use Status Tobacco use date assessed 01/02/25 01/02/25 12:45 Patient Tobacco Use Status Former Tobacco user 01/02/25 12:45 Tobacco use type Cigarette 01/02/25 12:45 e-Cigarette/Vaping Use Never Used 01/02/25 12:45 PHQ-9: PHQ-9 Score PHQ-9: Total score 6 01/02/25 13:10 Depression Screening Interpretation: Positive (Followed by psychiatry, Hunter Dixon at [facility]) Depression Screening Follow-up: Existing condition, In treatment and Community Mental Health Worker F/U Thrive Assessment: Date of Thrive Assessment Date Thrive assessed 12/30/24 01/02/25 12:45 Currently or been in a relationship where the following occur: Controlled Emotionally Const Other: Alert oriented x3, no acute distress noted, ambulatory with normal gait HENMT Mouth: oropharynx normal and moist mucous membranes Eyes General: appearance normal, both eyes and all related structures Neck Neck: Yes full ROM, Yes no lymphadenopathy and Yes supple Chest Chest palpation & inspection: normal inspection of the chest Breast/axilla palpation: normal palpation of the breasts Resp Auscultation: clear to auscultation bilaterally Cardio Rate: regular rate Rhythm: regular rhythm Heart sounds: S1 normal heart sound present and S2 normal heart sound present GI Palpation (GI): Soft to palpation, nontender and no guarding Other: Sees [facility] OBGYN General: Yes no CVA tenderness Back/Spine/Pelvis Back: no CVA tenderness and No back tenderness Skin General skin exam: no rashes or lesions noted Neuro General: tone normal, moves all extremities and no focal motor deficits Extrem General: Yes full ROM, Yes no joint enlargement, Yes no clubbing, cyanosis or edema, Yes no pedal edema and Yes no calf tenderness Psych Appearance: grossly normal and well kempt Mental Status: mental status grossly normal Speech and movement: Normal speech and movement present Affect: normal affect Thought process: Normal thought process present Thought content: Normal thought content present Results Reviewed Results Reviewed: Name: Jaz Torres Age/Sex: 44/F : 1980 Unit#: [id number] Attend Dr: Elke Cross MD Re11/14/24 Status: DEP REF Location: [facility] Disch: SPEC : [id number] TERRENCE: 11/14/24 STATUS: COMP REQ : [id number] RECD: 11/14/[address]: Elke Cross MD COMP: 11/14/24 ENTERED: 11/14/[address]: ORDERED: Met Prof Fast, AST, ALT, Lipid Panel, Free T4, TSH Test Result Flag Reference Sodium 138 135-145 mmol/L Potassium 4.4 3.3-5.1 mmol/L CL 99 96-108 mmol/L CO2 30 H 22-29 mmol/L Gap 13 12-20 BUN 25 H 9-16 mg/dL Creat 0.89 0.5-1.4 mg/dL eGFR > 60 Chronic Kidney Disease: Estimated GFR < 60 mL/min/1.73m2 Severe Kidney Disease: Estimated GFR < 15 mL/min/1.73m2 FBS 81 60-99 mg/dL CA 9.9 8.4-10.2 mg/dL AST (GOT) 17 5-31 U/L ALT (GPT) 24 0-31 U/L Triglyceride 64 <150 mg/dL Desirable Triglyceride: less than 150 mg/dL Borderline High Triglyceride 150-199 mg/dL High Triglyceride: 200-499 mg/dL Very High Triglyceride: greater than or equal to 5OO mg/dL Cholesterol 197 <200 mg/dL Desirable Cholesterol: less than 200 mg/dL Borderline High Cholesterol: 200-239 mg/dL High Cholesterol: greater than 239 mg/dL LDL Calculated 119 H <100 mg/dL Desirable LDL: less than 100 mg/dL Near Optimal/Above Optimal LDL: 110-129 mg/dL Borderline High LDL: 130-159 mg/dL High LDL: 160-189 mg/dL Very High LDL: greater than or equal to 190 mg/dL HDL 66 >40 mg/dL Desirable HDL: greater than 40 mg/dL Note: This HDL assay may give artificially low results in patients with liver disease. Free T4 1.18 0.71-1.85 ng/dL TSH 3rd Gen. 0.84 0.32-4.0 uIU/mL TSH 3rd Generation ([facility]) Coding Level of Care Code New Pt Prev Care 40-64y(24756) Diagnoses PCOS (polycystic ovarian syndrome) E28.2 Irritable bowel syndrome with diarrhea K58.0 Dyslipidemia E78.5 Environmental and seasonal allergies J30.89 Fibromyalgia M79.7 Acquired hypothyroidism E03.9 Bipolar disorder F31.9 Hypertension I10 OCD (obsessive compulsive disorder) F42.9 Restless leg syndrome G25.81 Annual visit for general adult medical examination with abnormal findings Z00.01 Additional Codes EITAN-7 Assessment Billing - EITAN-7 Assessment Tool: EITAN-7 Assessment 69179 ([id number]) PHQ-9 - 89959 - PHQ-9 Billing: Yes ([id number]) Assessment & Plan Assessment & Plan (1) PCOS (polycystic ovarian syndrome): Code(s): E28.2 - Polycystic ovarian syndrome Category: Medical (2) Irritable bowel syndrome with diarrhea: Code(s): K58.0 - Irritable bowel syndrome with diarrhea Category: Medical (3) Dyslipidemia: Code(s): E78.5 - Hyperlipidemia, unspecified Category: Medical (4) Environmental and seasonal allergies: Comment: sees Dr Martin @ [place] , [facility] allergy shots Code(s): J30.89 - Other allergic rhinitis Category: Medical (5) Fibromyalgia: Code(s): M79.7 - Fibromyalgia Category: Medical (6) Acquired hypothyroidism: Code(s): E03.9 - Hypothyroidism, unspecified Category: Medical (7) Bipolar disorder: Code(s): F31.9 - Bipolar disorder, unspecified Category: Medical (8) Hypertension: Code(s): I10 - Essential (primary) hypertension Category: Medical (9) OCD (obsessive compulsive disorder): Code(s): F42.9 - Obsessive-compulsive disorder, unspecified Category: Medical (10) Restless leg syndrome: Code(s): G25.81 - Restless legs syndrome Category: Medical (11) Annual visit for general adult medical examination with abnormal findings: Code(s): Z00.01 - Encounter for general adult medical examination with abnormal findings Plan For the patient?s PCOS, I will continue the current regimen of Metformin and Spironolactone, monitoring side effects. Avoidance of the influenza vaccine is advised given the past adverse reactions. Blood pressure management will involve regular monitoring to differentiate true hypertension from situational elevations. Adjustments in psychiatric medication have improved the patient's mental health, with plans to continue monitoring her progress. Due to fibromyalgia, I have reduced her dose of Pregabalin to manage sedation. The patient is achieving weight loss goals through the ongoing prescription of Ozempic, complemented by increased exercise and diet management. Scheduled screenings and vaccinations have been verified and discussed with the patient. - Continue current Metformin and Spironolactone dosing as prescribed. - Avoid influenza vaccination due to previous adverse reactions. - Regularly monitor blood pressure and note conditions during measurements (such as fasting). - Report any new or worsening symptoms related to fibromyalgia or sedation to adjust medications as needed. - Maintain dietary and exercise routines, especially swimming at the [facility]. - Follow the recommended vaccination schedule, excluding the influenza vaccine. - Note upcoming colonoscopy for general health maintenance. - Contact your healthcare provider if there are any changes or concerns with your health before the next appointment. Patient was informed and verbally consented to the use of an ambient scribe for clinic note documentation during this visit.
--- OUTSIDE RECORDS SUMMARY | 2025-01-02 12:39 | XMS_ITS ---
Author Organization [facility] Address [address] [address] Care Team Providers Care Steam Shovel Oiler Name Role Phone GABRIELA NOLAN Primary Care Provider GABRIELA NOLAN Unavailable Unavailable REASON FOR VISIT e/no ref req c0 V, e/no ref req c0 V, e/no ref req c0 V Encounters Encounter Location Date Provider Diagnosis [facility] [address] [place] [phone] 05/29/2024 GABRIELA NOLAN Plan Of Treatment No Information Progress Notes * Jaz LYNCH LDOB: 1 (44 yo F)Acc No.[id number]:05/29/2024 Patient:?Jaz LYNCH Provider:?Gabriela Nolan MD :1980???Age:44 Y???Sex:Female D ate:05/29/2024 Address:[address] [place], [place] [id number] Subjective: * Chief Complaints: * ???1. e/no ref req c0 V. 2. e/no ref req c0 V. 3. e/no ref req c0 V. * HPI: ???General:? DYSPHAGIA - Onset -Symptoms experienced: dysphagia/food impaction/chest pain/upper abdominal pain/reflux -Frequency of symptoms: X/X/X/X/X (corresponding to each symptom above) -Severity of symptoms of out 10: X/X/X/X/X (corresponding to each symptom above) - Triggering Factors - Alleviating Factors - Diagnostic EGD . * Medical History:? Objective: * Vitals:? Assessment: Plan: * Treatment: * Images: * Electronic signature of GABRIELA NOLAN M.D. on 01/02/2025 at 12:39 PM EST Sign off status: Pending * Provider:?Gabriela Nolan MD Date:? 4 Generated for Aravind ventura/Nisha/Devi on:?01/02/2025 12:39 PM EST
--- OUTSIDE RECORDS SUMMARY | 2025-01-02 12:40 | XMS_ITS | Clinical Summary ---
Author Organization [facility] Address [address] [facility], [address] [place] [address] Care Team Providers Care Health Center Manager Name Role Phone Unavailable Primary Care Provider Unavailabl e Encounters Date Type Department Care Team Description [facility] [address] [place] [id number] Naomi Vegas MD from Last 3 Months Social History Tobacco Use Types Packs/Day Years Used Date Smoking Tobacco: Never Assessed Comments Unknown Sex and Gender Information Value Date Recorded Sex Assigned at Not on file Legal Sex Female 1:56 PM EDT Gender Identity Not on file Sexual Orientation Not on file Plan of Treatment Health Maintenance Due Date Last Done Comments Hepatitis C Screening 1999 Periodic Health Exam 1999 Tetanus Diphtheria and Pertu ssis Vaccines (TD and TDaP) (1 - Tdap) 2000 PAP Screening 2011 Breast Cancer Screening 2021 Influenza (Seasonal) 06/20/2024 CoVid-19 Vaccine ( - 2023-2 5 season) 2024 HIB Vaccines Aged Out No longer eligi ble based on patient's age to complete this topic HPV Vaccines Aged Out No longer eligi ble based on patient's age to complete this topic Meningococcal Vaccine Aged Out No anh sravanthi eligible based on patient's age to complete this topic Pneumococcal Vaccine: Pediat rics (0 to 5 Years) and At-Risk Patients (6 to 64 Years) Aged Out No longer eligible b ased on patient's age to complete this topic Insurance
--- OUTSIDE RECORDS SUMMARY | 2025-01-02 12:40 | XMS_ITS | Patient Health Record ---
Author Organization [facility] Address [address] [place] [address] Care Team Providers Care Dog Control Officer Name Role Phone America HYTAT, Elke Primary Care Provider Vishal Salinas Jr ALLERGIES Allergen (clinical drug ingredient) Drug/Non Drug Allergy documented on EMR Reaction Allergy Type Onset Date Status levothyroxine Levothyroxine Sodium Unknown Drug Allergy Active duloxetine Cymbalta Unknown Drug Allergy Active cats,dogs,seasonal,g ra ss.... (uncoded) Unknown Allergy Active REASON FOR REFERRAL No Information MEDICATIONS Medication SIG (Take, Route, Fr equency, Duration) Notes Start Date End Date Status LaMICtal 150 MG 1 tablet Orally once a day Active Vitamin D Active Vitamin B-1 Active hydrOXYzine HCl 50 MG 1 tablet as needed Orally BID Active traZODone HCl 100 MG 1 tablet at bedtime Orally Once a day Active Lyrica 150 MG 1 capsule Orally Twice a day 017 Active Omeprazole 20 MG 1 capsule Orally Once a day Active Bentyl 20 MG 2 capsules Orally prn Active cloNIDine HCl 0.1 MG 1 tablet Orally Twice a day Active FLUoxetine HCl 60 MG 1 tablet Orally Once a day Active SOCIAL HISTORY Sex Assigned At : Social History Observation Description Sex Assigned At Unknown PROBLEMS Problem Type ICD Code Onset Dates Problem Status W/U Status Risk SNOMED Code Notes Problem Abnormal upper gastrointestinal barium series (R93.3) Active confirmed 383005821 Problem Dysphagia (R13.10) Active confirmed 407 70771 Encounters Encounter Location Date Provider Diagnosis [facility] [address] [place] [address] 05/13/2024 Vishal Hutchinson Jr [facility] [address] [place] [address] 09/12/2024 Vishal Hutchinson Jr [facility] [address] [place] [address] 09/12/2024 Vishal Hutchinson Jr PLAN OF TREATMENT Future Test Test Name Order Date UPPER GI ENDOSCOPY 02/22/2017 Insurance Providers Payer Name Payer Address Payer Phone Subscriber Number Group Number Insured Name Patient Relationship to Insured Coverage Start Date Coverage End Date [employer] [facility] [address] [address] [place], [place] [id number] LUCY WALSH Self - patient is the insured MEDICAID OF [facility] [address] [place] [address] [id number] LUCY WALSH Self - patient is the insured MEDICAL (GENERAL) HISTORY Medical History History ICD Code hypothyroidism attention deficit disorder bipolar disorder PTSD vitamin D deficiency carpal tunnel syndrome menorrhagia
--- OUTSIDE RECORDS SUMMARY | 2025-01-02 12:40 | XMS_ITS | Referral Summary ---
Author Organization [facility] Address [address] Main Number: [phone] (12/06) [place] [address] Care Team Providers Care Internet Marketing Strategist Name Role Phone Unavailable Primary Care Provider [...] Description 07/16/2025 10:00 AM EDT Office Visit [facility] [address] [place] [address] Jannette Wolfe NP [address] [place] [address]
--- OUTSIDE RECORDS SUMMARY | 2025-01-02 12:40 | XMS_ITS | Patient Health Record ---
Author Organization [facility] Address [address] [facility] Floor 1 [place] [address] Care Team Providers Care Filler Sifter Helper Name Role Phone GABRIELA NOLAN Primary Care Provider GABRIELA NOLAN Unavailable Unavailable Reason For Referral No Information Encounters Encounter Location Date Provider Diagnosis [facility] [address] Floor 1 [place] [address] 04/02/2024 [facility] [address] [facility] Floor 1 [place] [address] 05/15/2024 [facility] [address] Floor 1 [place] [address] 05/25/2024 [facility] [address] [facility] Floor 1 [place] [address] 05/25/2024 Plan Of Treatment No Information Insurance Providers Payer Name Payer Address Payer Phone Subscriber Number Group Number Insured Name Patient Relationship to Insured Coverage Start Date Coverage End Date [place] [id number] [facility] [address] [place] [id number] Jaz Lynch Self - patient is the insured
--- OUTSIDE RECORDS SUMMARY | 2025-01-02 12:40 | XMS_ITS ---
Author Organization [facility] Address [address] [place] [address] Care Team Providers Care Tire Groover Name Role Phone America HYATT, Elke Primary Care Provider Vishal Salinas Jr Unavailable REASON FOR VISIT IBS Encounters Encounter Location Date Provider Diagnosis [facility] [address] [place] [address] 05/13/2024 Vishal Hutchinson Jr PLAN OF TREATMENT No Information
--- OUTSIDE RECORDS SUMMARY | 2025-01-02 12:40 | XMS_ITS ---
Author Organization [facility] Address [address] [address] Care Team Providers Care Reinforced Concrete Inspector Name Role Phone GABRIELA NOLAN Primary Care Provider GABRIELA NOLAN Unavailable Unavailable REASON FOR VISIT e/no ref req c0 Encounters Encounter Location Date Provider Diagnosis [facility] [employer] [facility] [address] [address] 05/29/2024 GABRIELA NOLAN Plan Of Treatment No Information Progress Notes * Jaz LYNCH LDOB: 1 (44 yo F)Acc No.[id number]:05/29/2024 Patient:?Jaz LYNCH Provider:?Gabriela Nolan MD :1980???Age:44 Y???Sex:Female D ate:05/29/2024 Address:[address] [place], [place] [phone] Subjective: * Chief Complaints: * ???1. E/no ref req c0. * Medical History:? Objective: * Vitals:? Assessment: Plan: * Treatment: * Images: * Electronic signature of GABRIELA NOLAN M.D. on 01/02/2025 at 12:39 PM EST Sign off status: Pending * Provider:?Gabriela Nolan MD Date:? Generated for Aravind ventura/Nisha/eTransmitting on:?01/02/2025 12:39 PM EST
--- OUTSIDE RECORDS SUMMARY | 2025-01-02 12:40 | XMS_ITS | Encounter Summary ---
Author Organization [facility] Address [address] [facility] [address] [facility], [address] [place] [address] Care Team Providers Care Gas Shovel Operator Name Role Phone Unavailable Primary Care Provider Unavailabl e Encounter Details Date Type Department Care Team (Late st Contact Info) Description 12/25/[address], [place] [address] Naomi Vegas MD [address] [place] [address] Social History Tobacco Use Types Packs/Day Years Used Date Smoking Tobacco: Never Assessed Comments Unknown Sex and Gender Information Value Date Recorded Sex Assigned at Not on file Legal Sex Female 1:56 PM EDT Gender Identity Not on file Sexual Orientation Not on file documented as of this encounter Miscellaneous Notes * Telephone Encounter - Ana Pizarro - 12/25/2024 4:22 PM EST Called the pt ,she refused to know Dr Vegas as her primary care physician documented in this encounter Plan of Treatment Not on file documented as of this encounter Visit Diagnoses Not on filedocumented in this encounter
--- OUTSIDE RECORDS SUMMARY | 2025-01-02 12:40 | XMS_ITS ---
Author Organization [facility] Address [address] [address] Care Team Providers Care Pattern Molder Name Role Phone GABRIELA NOLAN Primary Care Provider [phone] GABRIELA NOLAN Unavailable Unavailable REASON FOR VISIT e/no ref req c0 V Encounters Encounter Location Date Provider Diagnosis [facility] [address] [address] 05/29/2024 GABRIELA NOLAN Plan Of Treatment No Information Progress Notes * Jaz LYNCH LDOB: 1 (44 yo F)Acc No.[id number]:05/29/2024 Patient:?Jaz LYNCH Provider:?Gabriela Nolan MD :1980???Age:44 Y???Sex:Female D ate:05/29/2024 Address:[address] [place], [place] [phone] Subjective: * Chief Complaints: * ???1. e/no ref req c0 V. * Medical History:? Objective: * Vitals:? Assessment: Plan: * Treatment: * Images: * Electronic signature of GABRIELA NOLAN M.D. on 01/02/2025 at 12:40 PM EST Sign off status: Pending * Provider:?Gabriela Nolan MD Date:? Generated for Aravind ventura/Nisha/eTransmitting on:?01/02/2025 12:40 PM EST
--- OUTSIDE RECORDS SUMMARY | 2025-01-02 12:40 | XMS_ITS ---
Author Organization [facility] Address [address] [place] [address] Care Team Providers Care Confectionery Drops Machine Operator Name Role Phone America HYATT, Elke Primary Care Provider Vishal Salinas Jr REASON FOR VISIT Pt no showed Encounters Encounter Location Date Provider Diagnosis [facility] [address] [place] [address] 09/12/2024 Vishal Hutchinson Jr PLAN OF TREATMENT No Information
--- OUTSIDE RECORDS SUMMARY | 2025-01-02 12:40 | XMS_ITS | Clinical Summary ---
Author Organization [facility] Address [address] Main Number: [phone] (12/06) [place] [address] Care Team Providers Care Process Camera Operator Name Role Phone Unavailable Primary Care [...] Description 07/16/2025 10:00 AM EDT Office Visit [facility] [address] [place] [address] Jannette Wolfe NP [address] [place] [address] Health Maintenance Due Date Last Done Comments [...]
--- OUTSIDE RECORDS SUMMARY | 2025-01-02 12:40 | XMS_ITS ---
Author Organization [facility] Address [address] [place] [address] Care Team Providers Care Claims Service Representative Name Role Phone America HYATT, Elke Primary Care Provider Vishal Salinas Jr Unavailable REASON FOR VISIT Patient presents today for IBS Encounters Encounter Location Date Provider Diagnosis [facility] [address] [place] [address] 09/12/2024 Vishal Hutchinson Jr PLAN OF TREATMENT No Information
== END 2025-01-02 13:19 | disposition home or self-care (01) ==
PROVIDERS: PCP Internal Medicine; Visit Provider Internal Medicine
DX: Z00.00 Encounter for general adult medical examination without abnormal findings (principal); E28.2 Polycystic ovarian syndrome; K58.0 Irritable bowel syndrome with diarrhea; F31.9 Bipolar disorder, unspecified; E78.5 Hyperlipidemia, unspecified; J30.89 Other allergic rhinitis; M79.7 Fibromyalgia; E03.9 Hypothyroidism, unspecified; I10 Essential (primary) hypertension; F42.9 Obsessive-compulsive disorder, unspecified; G25.81 Restless legs syndrome

== ENCOUNTER → 2025-01-02 12:35 | Outpatient (BNVA) | payer OTHER, SELFPAY | PROVIDERS: PCP Internal Medicine; Visit Provider Internal Medicine | DX: Z00.01 Encounter for general adult medical examination with abnormal findings (principal); E28.2 Polycystic ovarian syndrome; K58.0 Irritable bowel syndrome with diarrhea; E78.5 Hyperlipidemia, unspecified; J30.89 Other allergic rhinitis; M79.7 Fibromyalgia; E03.9 Hypothyroidism, unspecified; F31.9 Bipolar disorder, unspecified; I10 Essential (primary) hypertension; F42.9 Obsessive-compulsive disorder, unspecified; G25.81 Restless legs syndrome | CPT/HCPCS: 96127; 99386 ==

== ENCOUNTER → 2025-01-08 13:16 | Outpatient (AMB) | payer OTHER, SELFPAY ==
--- NOTE | 2025-01-08 13:15 | A.OFFWM_ITS ---
Intake Intake Visit Reasons: VIDEO PO LSG 02/06/22 Allergies cat dander [CAT DANDER] Allergy (Mild, Verified 01/02/25 12:56) EYES- TEAR, ITCHY, face swells dog dander [DOG DANDER] Allergy (Mild, Verified 01/02/25 12:56) EYES- TEAR, ITCHY, hives duloxetine [From CYMBALTA] Adverse Reaction (Intermediate, Verified 01/02/25 12:56) VAGINAL BLEEDING PFSH Medical History Bilateral knee pain Sacroiliac pain Positive DANIELE (antinuclear antibody) Refused influenza vaccine PTSD (post-traumatic stress disorder) Insomnia PONV (postoperative nausea and vomiting) Gastric ulcer Cholelithiasis Sacroiliitis Spondylosis of lumbar region without myelopathy or radiculopathy Scoliosis Goiter Restless leg syndrome ADHD (attention deficit hyperactivity disorder) Anxiety OCD (obsessive compulsive disorder) Hypertension GERD (gastroesophageal reflux disease) Vitamin D deficiency PCOS (polycystic ovarian syndrome) Body mass index [BMI]40.0-44.9, adult Irritable bowel syndrome with diarrhea Environmental and seasonal allergies Breast cancer screening by mammogram Dyslipidemia Gastritis Morbid obesity Hirsutism Telogen effluvium Heartburn Degenerative disc disease, lumbar Fibromyalgia Bipolar disorder Rosacea Acquired hypothyroidism Surgical History S/P laparoscopic sleeve gastrectomy Hx of bariatric surgery Hx of shoulder surgery Hx of cholecystectomy Hx of colonoscopy Miscarriage History of nasal surgery History of rotator cuff surgery Family History Father Diabetes mellitus Mother OCD (obsessive compulsive disorder) EITAN (generalized anxiety disorder) HTN (hypertension) Cancer Cervical cancer Family/Other FH: mental illness Maternal Grandmother EITAN (generalized anxiety disorder) Glaucoma Mental health disorder Maternal Grandfather Alzheimer disease Maternal Aunt Hypothyroidism Mental health disorder Paternal Grandmother Unknown family medical history Paternal Grandfather Unknown family medical history Sister Hypothyroidism Paternal Aunt Substance use disorder Maternal Uncle Substance use disorder Social History Household Members Other:: brother Housing: Apartment Are you a primary healthcare corporate account director to a significant other at home: No Do you presently have visiting nurse or other home services: No Alcohol intake: never Patient Tobacco Use Status: Former Tobacco user Tobacco use type: Cigarette Cigarettes Per Day: 20 Years Smoked: 3 e-Cigarette/Vaping Use: Never Used service: No Current occupational status: disabled Cognitive needs: No Hearing needs: No Vision needs: Yes Behavioral Health Assessment Weight Management Therapy Therapy Notes Details Subjective: PT reports she has not been engaging in night eating. PT reports she has been trying to implement behavior activation principles to start modifying sleeping schedule and work on her morning mood/motivation. However, mornings are still very slow and challenging for her. She is sleeping better. Lyrica was decreased to from 75mg to 25mg and is feeling less sleepy in the morning and in general noticing she's more active. Objective: PT presents for a f/up anamaria via Telehealth. Used CBT based interventions for habit building and Sx management. Worked in continue using behavioral activation plan, now targeting exercise. Assessment/Response: * Mental status: WNL. more energy. * Risk reported/identified:None Assessment & Plan Assessment & Plan (1) Unspecified mood [affective] disorder: Code(s): F39 - Unspecified mood [affective] disorder (2) Generalized anxiety disorder: Code(s): F41.1 - Generalized anxiety disorder Plan f/up in 2 weeks. Next anamaria: 01/22 @1pm, TH Telehealth Telehealth Telehealth Platform: [facility] Location of provider rendering services: other Location of patient: address on file Patient Identification confirmed using: Name, : Yes Telehealth method: video Patient verbally consented to treatment: Yes Patient verbally consented to billing insurance company: Yes Patient informed of any privacy concerns related to visit: Yes Minutes spent on Phone/Video with Pt.: 45 Coding Level of Care Code Established Pt Tele Psytx 45 mins ([id number]) Patient Type Established Diagnoses Unspecified mood [affective] disorder F39 Generalized anxiety disorder F41.1 Time Spent (min) 45 Comment PT arrived late.
--- OUTSIDE RECORDS SUMMARY | 2025-01-08 13:35 | XMS_ITS ---
Author Organization [facility] Address [address] [address] Care Team Providers Care Ore Dressing Engineer Name Role Phone GABRIELA NOLAN Primary Care Provider [phone] GABRIELA NOLAN Unavailable Unavailable REASON FOR VISIT e/no ref req c0 Encounters Encounter Location Date Provider Diagnosis [facility] [employer] [facility] [address] [address] 05/29/2024 GABRIELA NOLAN Plan Of Treatment No Information Progress Notes * Jaz LYNCH LDOB: 1 (44 yo F)Acc No.[id number]:05/29/2024 Patient:?Jaz LYNCH Provider:?Gabriela Nolan MD :1980???Age:44 Y???Sex:Female D ate:05/29/2024 Address:[address] [place], [place] [phone] Subjective: * Chief Complaints: * ???1. E/no ref req c0. * Medical History:? Objective: * Vitals:? Assessment: Plan: * Treatment: * Images: * Electronic signature of GABRIELA NOLNA M.D. on 01/08/2025 at 01:35 PM EST Sign off status: Pending * Provider:?Gabriela Nolan MD Date:? Generated for Aravind ventura/Nisha/eTransmitting on:?01/08/2025 01:35 PM EST
--- OUTSIDE RECORDS SUMMARY | 2025-01-08 13:35 | XMS_ITS | Patient Health Record ---
Author Organization [facility] Address [address] [place] [address] Care Team Providers Care Tricot Knitter Name Role Phone America HYATT, Elke Primary [...] upper gastrointestinal barium series (R93.3) Active confirmed [id number] Problem Dysphagia (R13.10) Active confirmed 407 86195 Encounters Encounter Location Date Provider Diagnosis [facility] [address] [place] [address] 05/13/2024 Vishal Hutchinson Jr [facility] [address] [place] [address] 09/12/2024 Vishal Hutchinson Jr [facility] [address] [place] [address] 09/12/2024 Vishal Hutchinson Jr PLAN OF TREATMENT Future Test Test Name Order Date UPPER GI ENDOSCOPY 02/22/2017 Insurance Providers Payer Name Payer Address Payer Phone Subscriber Number Group Number Insured Name Patient Relationship to Insured Coverage Start Date Coverage End Date [facility] [email or web address] [facility] [address] [address] [place], [place] [id number] LUCY WALSH Self - patient is the insured MEDICAID OF [facility] [address] [place] [address] [id number] LUCY WALSH Self - patient is the insured MEDICAL (GENERAL) HISTORY Medical History History ICD Code hypothyroidism attention deficit disorder bipolar disorder PTSD vitamin D deficiency carpal tunnel syndrome menorrhagia
--- OUTSIDE RECORDS SUMMARY | 2025-01-08 13:35 | XMS_ITS ---
Author Organization [facility] Address [address] [address] Care Team Providers Care House Parent Name Role Phone GABRIELA NOLAN Primary Care Provider GABRIELA NOLAN Unavailable Unavailable REASON FOR VISIT e/no ref req c0 V Encounters Encounter Location Date Provider Diagnosis [facility] [address] [address] 05/29/2024 GABRIELA NOLAN Plan Of Treatment No Information Progress Notes * Jaz LYNCH LDOB: 1 (44 yo F)Acc No.[id number]:05/29/2024 Patient:?Jaz LYNCH Provider:?Gabriela Nolan MD :1980???Age:44 Y???Sex:Female D ate:05/29/2024 Address:[address] [place], [place] [phone] Subjective: * Chief Complaints: * ???1. e/no ref req c0 V. * Medical History:? Objective: * Vitals:? Assessment: Plan: * Treatment: * Images: * Electronic signature of GABREILA NOLAN M.D. on 01/08/2025 at 01:35 PM EST Sign off status: Pending * Provider:?Gabriela Nolan MD Date:? Generated for Aravind ventura/Nisha/eTransmitting on:?01/08/2025 01:35 PM EST
--- OUTSIDE RECORDS SUMMARY | 2025-01-08 13:35 | XMS_ITS | Clinical Summary ---
Author Organization [facility] Address [address] [place] [address] Care Team Providers Care Nanoelectronics Engineer Name Role Phone Unavailable Primary Care Provider Unavailabl e Encounters Date Type Department Care Team Description 12/25/2024 Telephone [facility] [address] [place] [phone] Naomi Vegas MD from Last 3 Months [...]
--- OUTSIDE RECORDS SUMMARY | 2025-01-08 13:35 | XMS_ITS | Referral Summary ---
Author Organization [facility] Address [address] Main Number: [phone] (12/06) [place] [address] Care Team Providers Care Brand Engineer Name Role Phone Unavailable Primary Care [...] Description 07/16/2025 10:00 AM EDT Office Visit [facility] [address] [place] [address] Jannette Wolfe NP [address] [place] [address]
--- OUTSIDE RECORDS SUMMARY | 2025-01-08 13:35 | XMS_ITS ---
Author Organization [facility] Address [address] [place] [address] Care Team Providers Care Waterfront Director Name Role Phone America HYATT, Elke Primary Care Provider Vishal Salinas Jr Unavailable REASON FOR VISIT Patient presents today for IBS Encounters Encounter Location Date Provider Diagnosis [facility] [address] [place] [address] 09/12/2024 Vishal Hutchinson Jr PLAN OF TREATMENT No Information
--- OUTSIDE RECORDS SUMMARY | 2025-01-08 13:35 | XMS_ITS | Encounter Summary ---
Author Organization [facility] Address [address] [facility] [place] [address] Care Team Providers Care Skein Bander Name Role Phone Unavailable Primary Care Provider Unavailabl e Encounter Details Date Type Department Care Team (Late st Contact Info) Description 12/25/2024 [place] [address] Naomi Vegas MD [address] [place] [address] Social History Tobacco Use Types Packs/Day Years [...]
--- OUTSIDE RECORDS SUMMARY | 2025-01-08 13:35 | XMS_ITS | Patient Health Record ---
Author Organization [facility] Address [address] [facility] Floor 1 [place] [address] Care Team Providers Care Entertainment Director Name Role Phone GABRIELA NOLAN Primary Care Provider GABRIELA NOLAN Unavailable Unavailable Reason For Referral No Information Encounters Encounter Location Date Provider Diagnosis [facility] [address] 1 [place] [address] 04/02/2024 [facility] [address] [facility] Floor 1 [place] [address] 05/15/2024 [facility] [address] 1 [place] [address] 05/25/2024 [facility] [address] [facility] Floor 1 [place] [address] 05/25/2024 Plan Of Treatment No Information Insurance Providers Payer Name Payer Address Payer Phone Subscriber Number Group Number Insured Name Patient Relationship to Insured Coverage Start Date Coverage End Date [place] [id number] [facility] [address] [place] [id number] Jaz Lynch Self - patient is the insured
--- OUTSIDE RECORDS SUMMARY | 2025-01-08 13:35 | XMS_ITS ---
Author Organization [facility] Address [address] [address] Care Team Providers Care Inspecting Engineer Name Role Phone GABRIELA NOLAN Primary Care Provider GABRIELA NOLAN Unavailable Unavailable REASON FOR VISIT e/no ref req c0 V, e/no ref req c0 V, e/no ref req c0 V Encounters Encounter Location Date Provider Diagnosis [facility] [address] [place] [address] 05/29/2024 GABRIELA NOLAN Plan Of Treatment No Information Progress Notes * Jaz LYNCH LDOB: 1 (44 yo F)Acc No.[id number]:05/29/2024 Patient:?Jaz LYNCH Provider:?Gabriela Nolan MD :1980???Age:44 Y???Sex:Female D ate:05/29/2024 Address:[address] [place], [place] [phone] Subjective: * Chief Complaints: * ???1. e/no [...] Electronic signature of GABRIELA NOLAN M.D. on 01/08/2025 at 01:34 PM EST Sign off status: Pending * Provider:?Gabriela Nolan MD Date:? 4 Generated for Aravind ventura/Nisha/Devi on:?01/08/2025 01:34 PM EST
--- OUTSIDE RECORDS SUMMARY | 2025-01-08 13:36 | XMS_ITS ---
Author Organization [facility] Address [address] [place] [address] Care Team Providers Care Supervisor Files Name Role Phone America HYATT, Elke Primary Care Provider Vishal Salinas Jr REASON FOR VISIT Pt no showed Encounters Encounter Location Date Provider Diagnosis [facility] [address] [place] [address] 09/12/2024 Vishal Hutchinson Jr PLAN OF TREATMENT No Information
--- OUTSIDE RECORDS SUMMARY | 2025-01-08 13:36 | XMS_ITS ---
Author Organization [facility] Address [address] [place] [address] Care Team Providers Care Larry Operator Name Role Phone America HYATT, Elke Primary Care Provider Vishal Salinas Jr Unavailable [phone] REASON FOR VISIT IBS Encounters Encounter Location Date Provider Diagnosis [facility] [address] [place] [address] 05/13/2024 Vishal Hutchinson Jr PLAN OF TREATMENT No Information
--- OUTSIDE RECORDS SUMMARY | 2025-01-08 13:36 | XMS_ITS | Clinical Summary ---
Author Organization [facility] Address [address] Main Number: [phone] (12/06) [place] [address] Care Team Providers Care Washing Machine Assembler Name Role Phone Unavailable Primary Care Provider [...] Description 07/16/2025 10:00 AM EDT Office Visit [facility] [address] [place] [address] Jannette Wolfe NP [address] [place] [address] Health Maintenance Due Date Last Done Comments [...]
== END ==
LOC: HO.HBST 13:16
PROVIDERS: PCP Internal Medicine; Visit Provider Counselor Mental Health
DX: F39 Unspecified mood [affective] disorder (principal); F41.1 Generalized anxiety disorder
CPT/HCPCS: 90834

== ENCOUNTER → 2025-01-08 13:16 | Outpatient (BNVA) | payer OTHER, SELFPAY | PROVIDERS: PCP Internal Medicine; Visit Provider Counselor Mental Health ==

== ENCOUNTER 2025-01-22 13:22 | Outpatient (AMB) | payer OTHER, SELFPAY ==
--- NOTE | 2025-01-22 13:05 | A.OFFWM_ITS ---
Intake Intake Visit Reasons: VIDEO PO LSG 02/06/22 Allergies cat dander [CAT DANDER] Allergy (Mild, Verified 01/02/25 12:56) EYES- TEAR, ITCHY, face swells dog dander [DOG DANDER] Allergy (Mild, Verified 01/02/25 12:56) EYES- TEAR, ITCHY, hives duloxetine [From CYMBALTA] Adverse Reaction (Intermediate, Verified 01/02/25 12:56) VAGINAL BLEEDING PFSH Medical History Bilateral knee pain Sacroiliac pain Positive DANIELE (antinuclear antibody) Refused influenza vaccine PTSD (post-traumatic stress disorder) Insomnia PONV (postoperative nausea and vomiting) Gastric ulcer Cholelithiasis Sacroiliitis Spondylosis of lumbar region without myelopathy or radiculopathy Scoliosis Goiter Restless leg syndrome ADHD (attention deficit hyperactivity disorder) Anxiety OCD (obsessive compulsive disorder) Hypertension GERD (gastroesophageal reflux disease) Vitamin D deficiency PCOS (polycystic ovarian syndrome) Body mass index [BMI]40.0-44.9, adult Irritable bowel syndrome with diarrhea Environmental and seasonal allergies Breast cancer screening by mammogram Dyslipidemia Gastritis Morbid obesity Hirsutism Telogen effluvium Heartburn Degenerative disc disease, lumbar Fibromyalgia Bipolar disorder Rosacea Acquired hypothyroidism Surgical History S/P laparoscopic sleeve gastrectomy Hx of bariatric surgery Hx of shoulder surgery Hx of cholecystectomy Hx of colonoscopy Miscarriage History of nasal surgery History of rotator cuff surgery Family History Father Diabetes mellitus Mother OCD (obsessive compulsive disorder) EITAN (generalized anxiety disorder) HTN (hypertension) Cancer Cervical cancer Family/Other FH: mental illness Maternal Grandmother EITAN (generalized anxiety disorder) Glaucoma Mental health disorder Maternal Grandfather Alzheimer disease Maternal Aunt Hypothyroidism Mental health disorder Paternal Grandmother Unknown family medical history Paternal Grandfather Unknown family medical history Sister Hypothyroidism Paternal Aunt Substance use disorder Maternal Uncle Substance use disorder Social History Household Members Other:: brother Housing: Apartment Are you a primary career placement services counselor to a significant other at home: No Do you presently have visiting nurse or other home services: No Alcohol intake: never Patient Tobacco Use Status: Former Tobacco user Tobacco use type: Cigarette Cigarettes Per Day: 20 Years Smoked: 3 e-Cigarette/Vaping Use: Never Used service: No Current occupational status: disabled Cognitive needs: No Hearing needs: No Vision needs: Yes Behavioral Health Assessment Weight Management Therapy Therapy Notes Details Subjective: PT reports she has started attending the gym consistently, also decided to make changes in morning routine, by going to the gym in the morning, dressing in something different. so far this is helping to boost her mood and to feel better with herself. Objective: PT presents for a F/up visit via Telehealth. . Reflected about functioning and impact on mood by implementing behavioral activation plan we developed. We processed Family and relationship dynamics. Reflective listening, constructive feedback provided. Reflected on things under/out of her control and coping strategies to manage family dynamics. Reviewed coping skills for mood issues triggered by pain and fatigue due to health issues. Assessment/Response: * Mental status: euthymic. Better functioning. * Risk reported/identified: None. PT responded well to interventions and modalities used. Assessment & Plan Assessment & Plan (1) Unspecified mood [affective] disorder: Code(s): F39 - Unspecified mood [affective] disorder (2) Generalized anxiety disorder: Code(s): F41.1 - Generalized anxiety disorder Plan Continue sessions on a bi-weekly basis. Next anamaria: 02/05/25 at 1pm, IOCS. Telehealth Telehealth Telehealth Platform: [facility] Location of provider rendering services: other Location of patient: address on file Patient Identification confirmed using: Name, : Yes Telehealth method: video Patient verbally consented to treatment: Yes Patient verbally consented to billing insurance company: Yes Patient informed of any privacy concerns related to visit: Yes Minutes spent on Phone/Video with Pt.: 60 Coding Level of Care Code Established Pt Tele Psytx >53 mins (33730) Patient Type Established Diagnoses Unspecified mood [affective] disorder F39 Generalized anxiety disorder F41.1 Time Spent (min) 60
--- OUTSIDE RECORDS SUMMARY | 2025-01-22 15:56 | XMS_ITS ---
Author Organization [facility] Address [address] [place] [address] Care Team Providers Care Supervisor Adult Education Name Role Phone America HYATT, Elke Primary Care Provider Vishal Salinas Jr [phone] REASON FOR VISIT Patient presents today for IBS Encounters Encounter Location Date Provider Diagnosis [facility] [address] [address] [facility] [address] [place] [phone] 09/12/2024 Vishal Hutchinson Jr Plan Of Treatment No Information Progress Notes * LUCY WALSHDOB:1980 (44 yo F)Acc No.[id number]:09/12/2024 Progress Notes Patient:?LUCY WALSH Provider:?Vishal Hutchinson MD :1980???Age:44 Y???Sex:Female D ate:09/12/2024 Address:[address] [place] [address] [address] [facility] Pcp:Elke Cross MD Subjective: * Chief Complaints: * ???1. Patient presents today for IBS. * Medical History:? Objective: * Vitals:? Assessment: Plan: * Treatment: * * The named appointment provid er may or may not be the originator of this progress note, and it is not deemed complete until electronically signed by the appointment provider. Sign off status: Pending * Provider:?Vishal Hutchinson MD Date:?1 Generated for Modestai ng/Faxing/eTransmitting on:?01/22/2025 03:56 PM EST
--- OUTSIDE RECORDS SUMMARY | 2025-01-22 15:56 | XMS_ITS | Referral Summary ---
Author Organization [facility] Address [address] [place] [address] Phone Care Team Providers Care Army Ranger Name Role Phone Unavailable Primary Care Provider [...] Description 07/16/2025 10:00 AM EDT Office Visit [facility] [address] [place] [address] Jannette Wolfe NP [address] [place] [address]
--- OUTSIDE RECORDS SUMMARY | 2025-01-22 15:56 | XMS_ITS | Clinical Summary ---
Author Organization [facility] Address [address] [place] [address] Care Team Providers Care Pulp Bleacher Name Role Phone Unavailable Primary Care Provider Unavailabl e Encounters Date Type Department Care Team Description 12/25/2024 Telephone [facility] [address] [place] [phone] Naomi Vegas MD from Last 3 Months [...]
--- OUTSIDE RECORDS SUMMARY | 2025-01-22 15:56 | XMS_ITS | Encounter Summary ---
Author Organization [facility] Address [address] [place] [address] Care Team Providers Care Systems Architect Name Role Phone Unavailable Primary Care Provider Unavailabl e Encounter Details Date Type Department Care Team (Late st Contact Info) Description 12/25/2024 [place] [address] Naomi Vegas MD [address] [place] [address] Social History Tobacco Use Types Packs/Day Years [...]
--- OUTSIDE RECORDS SUMMARY | 2025-01-22 15:56 | XMS_ITS ---
Author Organization [facility] Address [address] [address] Care Team Providers Care Supervisor Feed House Name Role Phone GABRIELA NOLAN Primary Care Provider GABRIELA NOLAN Unavailable Unavailable REASON FOR VISIT e/no ref req c0 V Encounters Encounter Location Date Provider Diagnosis [facility] [address] [address] 05/29/2024 GABRIELA NOLAN Plan Of Treatment No Information Progress Notes * Jaz LYNCH LDOB: 1 (44 yo F)Acc No.[id number]:05/29/2024 Patient:?Jaz LYNCH Provider:?Gabriela Nolan MD :1980???Age:44 Y???Sex:Female D ate:05/29/2024 Address:[address] [place], [place] [id number] Subjective: * Chief Complaints: * ???1. e/no ref req c0 V. * Medical History:? Objective: * Vitals:? Assessment: Plan: * Treatment: * Images: * Electronic signature of GABRIELA NOLAN M.D. on 01/22/2025 at 03:56 PM EST Sign off status: Pending * Provider:?Gabriela Nolan MD Date:? Generated for Aravind ventura/Nisha/eTransmitting on:?01/22/2025 03:56 PM EST
--- OUTSIDE RECORDS SUMMARY | 2025-01-22 15:56 | XMS_ITS | Patient Health Record ---
Author Organization [facility] Address [address] [facility] [address] 1 [place] [address] Care Team Providers Care Absorption And Adsorption Engineer Name Role Phone GABRIELA NOLAN Primary Care Provider [phone] GABRIELA NOLAN Unavailable Unavailable Reason For Referral No Information Encounters Encounter Location Date Provider Diagnosis [facility] [address] [place] [address] 04/02/2024 [facility] [address] [facility] [address] 1 [place] [address] 05/15/2024 [facility] [address] 1 [place] [address] 05/25/2024 [facility] [address] [facility] [address] 1 [place] [address] 05/25/2024 Plan Of Treatment No Information Insurance Providers Payer Name Payer Address Payer Phone Subscriber Number Group Number Insured Name Patient Relationship to Insured Coverage Start Date Coverage End Date [place] [id number] [facility] [address] [place] [address] [id number] Jaz Lynch Self - patient is the insured
--- OUTSIDE RECORDS SUMMARY | 2025-01-22 15:56 | XMS_ITS | Patient Health Record ---
Author Organization [facility] Address [address] [place] [address] Care Team Providers Care Cna Instructor Name Role Phone America HYATT, Elke Primary Care Provider Vishal Salinas Jr Allergies Allergen (clinical drug ingredient) Drug/Non Drug Allergy documented on EMR Reaction Allergy Type Onset Date Status levothyroxine Levothyroxine Sodium Unknown Drug Allergy Active duloxetine Cymbalta Unknown Drug Allergy Active cats,dogs,seasonal,g ra ss.... (uncoded) Unknown Allergy Active Reason For Referral No Information Medications Medication SIG (Take, Route, Fr equency, Duration) [...] 1 tablet Orally Once a day Active Problems Problem Type SNOMED Code ICD Code Onset Dates Problem Status W/U Status Risk Notes Problem 92013747 Dysphagia (R13.10) Active confirmed Problem [id number] Abnormal upper gastrointestinal barium series (R93.3) Active confirmed Encounters Encounter Location Date Provider Diagnosis [facility] [address] [place] [address] 09/12/2024 Vishal Hutchinson Jr Plan Of Treatment Future Test Test Name Order Date UPPER GI ENDOSCOPY 02/22/2017 Insurance Providers Payer Name Payer Address Payer Phone Subscriber Number Group Number Insured Name Patient Relationship to Insured Coverage Start Date Coverage End Date [facility] [address] [address] [place], [place] [id number] LUCY WALSH Self - patient is the insured MEDICAID OF [facility] [address] [place] [address] [id number] LUCY WALSH Self - patient is the insured Medical (General) History Medical History History ICD Code hypothyroidism attention deficit disorder bipolar disorder PTSD vitamin D deficiency carpal tunnel syndrome menorrhagia
--- OUTSIDE RECORDS SUMMARY | 2025-01-22 15:56 | XMS_ITS ---
Author Organization [facility] Address [address] [address] Care Team Providers Care Clinical Reviewer Name Role Phone GABRIELA NOLAN Primary Care Provider GABRIELA NOLAN Unavailable Unavailable REASON FOR VISIT e/no ref req c0 V, e/no ref req c0 V, e/no ref req c0 V Encounters Encounter Location Date Provider Diagnosis [facility] [address] [place] [address] 05/29/2024 GABRIELA NOLAN Plan Of Treatment No Information Progress Notes * Jaz LYNCH LDOB: 1 (44 yo F)Acc No.[id number]:05/29/2024 Patient:?Jaz LYNCH Provider:?Gabriela Nolan MD :1980???Age:44 Y???Sex:Female D ate:05/29/2024 Address:[address] [place], [place] [phone] Subjective: * Chief Complaints: * ???1. e/no [...] of GABRIELA NOLAN M.D. on 01/22/2025 at 03:55 PM EST Sign off status: Pending * Provider:?Gabriela Nolan MD Date:? 4 Generated for Aravind ventura/Nisha/Devi on:?01/22/2025 03:55 PM EST
--- OUTSIDE RECORDS SUMMARY | 2025-01-22 15:56 | XMS_ITS | Clinical Summary ---
Author Organization [facility] Address [address] [place] [address] Phone Care Team Providers Care Windows Systems Architect Name Role Phone Unavailable Primary [...] Description 07/16/2025 10:00 AM EDT Office Visit [facility] [address] [place] [address] Jannette Wolfe NP [address] [place] [address] Health Maintenance Due Date Last Done Comments [...]
--- OUTSIDE RECORDS SUMMARY | 2025-01-22 15:56 | XMS_ITS ---
Author Organization [facility] Address [address] [place] [address] Care Team Providers Care Pattern Drafter Name Role Phone America HYATT, Elke Primary Care Provider Tati Hutchinson Jr, Vishal Suazo REASON FOR VISIT Pt no showed Encounters Encounter Location Date Provider Diagnosis [facility] [address] [place] [address] 09/12/2024 Vishal Hutchinson Jr Plan Of Treatment No Information Progress Notes * LUCY WALSHDOB:1980 (44 yo F)Acc No.[id number]:09/12/2024 Patient:?LUCY WALSH :1980???Age:44 Y???Sex:Female Address:[address] [place] [address] [address] , [place], [address] * true * Date:? Generated for Modestai lorenzo/Nisha/eTransmitting on:?01/22/2025 03:56 PM EST
--- OUTSIDE RECORDS SUMMARY | 2025-01-22 15:56 | XMS_ITS ---
Author Organization [facility] Address [address] [address] Care Team Providers Care Petrophysicist Name Role Phone GABRIELA NOLAN Primary Care Provider GABRIELA NOLAN Unavailable Unavailable REASON FOR VISIT e/no ref req c0 Encounters Encounter Location Date Provider Diagnosis [facility] [facility] [address] [address] 05/29/2024 GABRIELA NOLAN Plan Of Treatment No Information Progress Notes * Jaz LYNCH LDOB: 1 (44 yo F)Acc No.[id number]:05/29/2024 Patient:?Jaz LYNCH Provider:?Gabriela Nolan MD :1980???Age:44 Y???Sex:Female D ate:05/29/2024 Address:[address] [place], [place] [phone] Subjective: * Chief Complaints: * ???1. E/no ref req c0. * Medical History:? Objective: * Vitals:? Assessment: Plan: * Treatment: * Images: * Electronic signature of GABRIELA NOLAN M.D. on 01/22/2025 at 03:56 PM EST Sign off status: Pending * Provider:?Gabriela Nolan MD Date:? Generated for Aravind ventura/Nisha/eTransmitting on:?01/22/2025 03:56 PM EST
--- OUTSIDE RECORDS SUMMARY | 2025-01-22 15:57 | XMS_ITS ---
Author Organization [facility] Address [address] [place] [address] Care Team Providers Care Masseur/Masseuse Name Role Phone America HYATT, Elke Primary Care Provider Vishal Salinas Jr REASON FOR VISIT IBS Encounters Encounter Location Date Provider Diagnosis [facility] [address] [facility] [place] [address] [place] [address] 05/13/2024 Vishal Hutchinson Jr Plan Of Treatment No Information Progress Notes * LUCY WALSHDOB:1980 (44 yo F)Acc No.[id number]:05/13/2024 Progress Notes Patient:?LUCY WALSH Provider:?Vishal Hutchinson MD :1980???Age:43 Y???Sex:Female D ate:05/13/2024 Address:[address] [place] [address] [address] [facility] Pcp:Elke Cross MD Subjective: * Chief Complaints: * ???1. IBS. * Medical History:? Objective: * Vitals:? Assessment: Plan: * Treatment: * * The named appointment provid er may or may not be the originator of this progress note, and it is not deemed complete until electronically signed by the appointment provider. Sign off status: Pending * Provider:?Vishal Hutchinson MD Date:?0 05/13/2024 Generated for Aravind ventura/Nisha/eTransmitting on:?01/22/2025 03:56 PM EST
== END 2025-01-22 14:51 | disposition home or self-care (01) ==
LOC: HO.HBST 13:22
PROVIDERS: PCP Internal Medicine; Visit Provider Counselor Mental Health
DX: F39 Unspecified mood [affective] disorder (principal); F41.1 Generalized anxiety disorder
CPT/HCPCS: 90837

== ENCOUNTER → 2025-02-05 13:09 | Outpatient (AMB) | payer OTHER, SELFPAY ==
--- NOTE | 2025-02-05 13:00 | A.OFFWM_ITS ---
Intake Intake Visit Reasons: VIDEO PO LSG 02/06/22 Allergies cat dander [CAT DANDER] Allergy (Mild, Verified 01/02/25 12:56) EYES- TEAR, ITCHY, face swells dog dander [DOG DANDER] Allergy (Mild, Verified 01/02/25 12:56) EYES- TEAR, ITCHY, hives duloxetine [From CYMBALTA] Adverse Reaction (Intermediate, Verified 01/02/25 12:56) VAGINAL BLEEDING PFSH Medical History Bilateral knee pain Sacroiliac pain Positive DANIELE (antinuclear antibody) Refused influenza vaccine PTSD (post-traumatic stress disorder) Insomnia PONV (postoperative nausea and vomiting) Gastric ulcer Cholelithiasis Sacroiliitis Spondylosis of lumbar region without myelopathy or radiculopathy Scoliosis Goiter Restless leg syndrome ADHD (attention deficit hyperactivity disorder) Anxiety OCD (obsessive compulsive disorder) Hypertension GERD (gastroesophageal reflux disease) Vitamin D deficiency PCOS (polycystic ovarian syndrome) Body mass index [BMI]40.0-44.9, adult Irritable bowel syndrome with diarrhea Environmental and seasonal allergies Breast cancer screening by mammogram Dyslipidemia Gastritis Morbid obesity Hirsutism Telogen effluvium Heartburn Degenerative disc disease, lumbar Fibromyalgia Bipolar disorder Rosacea Acquired hypothyroidism Surgical History S/P laparoscopic sleeve gastrectomy Hx of bariatric surgery Hx of shoulder surgery Hx of cholecystectomy Hx of colonoscopy Miscarriage History of nasal surgery History of rotator cuff surgery Family History Father Diabetes mellitus Mother OCD (obsessive compulsive disorder) EITAN (generalized anxiety disorder) HTN (hypertension) Cancer Cervical cancer Family/Other FH: mental illness Maternal Grandmother EITAN (generalized anxiety disorder) Glaucoma Mental health disorder Maternal Grandfather Alzheimer disease Maternal Aunt Hypothyroidism Mental health disorder Paternal Grandmother Unknown family medical history Paternal Grandfather Unknown family medical history Sister Hypothyroidism Paternal Aunt Substance use disorder Maternal Uncle Substance use disorder Social History Household Members Other:: brother Housing: Apartment Are you a primary palliative care specialist to a significant other at home: No Do you presently have visiting nurse or other home services: No Alcohol intake: never Patient Tobacco Use Status: Former Tobacco user Tobacco use type: Cigarette Cigarettes Per Day: 20 Years Smoked: 3 e-Cigarette/Vaping Use: Never Used service: No Current occupational status: disabled Cognitive needs: No Hearing needs: No Vision needs: Yes Behavioral Health Assessment Weight Management Therapy Therapy Notes Details Subjective: The patient reports doing well overall and has been using her behavioral activation plan, which has helped her feel more in control. She has been consistently attending the local [facility] three times a week and using her bike at home 2-3 days per week. The patient shared a recent trigger related to pain management, leading to feelings of frustration, which she would like to address. Additionally, she expressed stress surrounding family dynamics and her professional goals. Objective: The patient presents for a follow-up visit via telehealth. During the session, we reviewed her current behavioral activation plan, and she reported positive outcomes from increased physical activity. We utilized cognitive-behavioral techniques (CBT) to explore the frustration around pain management, identifying negative thought patterns and replacing them with more adaptive coping strategies. We also practiced mindfulness techniques to help the patient become more aware of her emotional responses and manage frustration in the moment. A focus was placed on recognizing when she?s becoming overwhelmed and grounding herself through deep breathing exercises. We discussed her family dynamics and professional stress, using CBT to identify any cognitive distortions contributing to her stress and worked on reframing these thoughts to promote a more balanced perspective. Assessment/Response: * Mental status: The patient appears alert and oriented, with a positive outlook on her progress. There are no signs of acute distress. She demonstrates a good understanding of her triggers and coping mechanisms. * Risk: No risks identified. No current safety concerns regarding self-harm, suicidal ideation (SI), or harm to others. Assessment & Plan Assessment & Plan (1) Unspecified mood [affective] disorder: Code(s): F39 - Unspecified mood [affective] disorder (2) Generalized anxiety disorder: Code(s): F41.1 - Generalized anxiety disorder Plan * Continue with the current behavioral activation plan, increasing focus on managing frustration and stress related to pain and family dynamics. * Implement additional mindfulness exercises to help the patient remain grounded during moments of frustration or emotional stress. * Continue with weekly follow-up sessions to monitor progress, address any challenges, and reinforce adaptive coping strategies. Next appointment: 02/18/2025 at 1:00 PM, Telehealth. Telehealth Telehealth Telehealth Platform: [facility] Location of provider rendering services: other Location of patient: address on file Patient Identification confirmed using: Name, : Yes Telehealth method: video Patient verbally consented to treatment: Yes Patient verbally consented to billing insurance company: Yes Patient informed of any privacy concerns related to visit: Yes Minutes spent on Phone/Video with Pt.: 60 Coding Level of Care Code Established Pt Tele Psytx >53 mins ([id number]) Patient Type Established Diagnoses Unspecified mood [affective] disorder F39 Generalized anxiety disorder F41.1 Time Spent (min) 60
--- OUTSIDE RECORDS SUMMARY | 2025-02-05 15:32 | XMS_ITS ---
Author Organization [facility] Address [address] [place] [address] Care Team Providers Care Tool Die Maker Name Role Phone America HYATT, Elke Primary Care Provider Vishal Salinas Jr REASON FOR VISIT Patient presents today for IBS Encounters Encounter Location Date Provider Diagnosis [facility] [address] [facility] [address] [place] [address] 09/12/2024 Vishal Hutchinson Jr Plan Of Treatment No Information Progress Notes * LUCY WALSHDOB:1980 (44 yo F)Acc No.[id number]:09/12/2024 Progress Notes Patient:?LUCY WALSH Provider:?Vishal Hutchinson MD :1980???Age:44 Y???Sex:Female D ate:09/12/2024 Address:[address] [place] [address] 07[address]30 [facility] Pcp:Elke Cross MD Subjective: * Chief Complaints: [...] Hutchinson MD Date:?1 Generated for Modestai ng/Faxing/eTransmitting on:?02/05/2025 03:32 PM EDT
--- OUTSIDE RECORDS SUMMARY | 2025-02-05 15:32 | XMS_ITS | Referral Summary ---
Author Organization [facility] Address [address] [place] [address] Phone Care Team Providers Care Rolled Gold Plater Name Role Phone Unavailable Primary Care Provider [...] Description 07/16/2025 10:00 AM EDT Office Visit [facility] [address] [place] [address] Jannette Wolfe NP [address] [place] [address]
--- OUTSIDE RECORDS SUMMARY | 2025-02-05 15:32 | XMS_ITS | Patient Health Record ---
Author Organization [facility] Address [address] [place] [address] Care Team Providers Care Teacher Tutor Name Role Phone America HYATT, Elke Primary [...] Problem Status W/U Status Risk Notes Problem [id number] Dysphagia (R13.10) Active confirmed Problem [id number] Abnormal upper gastrointestinal barium series (R93.3) Active confirmed Encounters Encounter Location Date Provider Diagnosis [facility] [address] [place] [address] 09/12/2024 Vishal Hutchinson Jr Plan Of Treatment Future Test Test Name Order Date UPPER GI ENDOSCOPY 02/22/2017 Insurance Providers Payer Name Payer Address Payer Phone Subscriber Number Group Number Insured Name Patient Relationship to Insured Coverage Start Date Coverage End Date [facility] [address] [address] [place], [place] [id number] LUCY WALSH Self - patient is the insured MEDICAID OF [facility] [address] [place] [address] [id number] LUCY WALSH Self - patient is the insured Medical (General) History Medical History History ICD Code hypothyroidism attention deficit disorder bipolar disorder PTSD vitamin D deficiency carpal tunnel syndrome menorrhagia
--- OUTSIDE RECORDS SUMMARY | 2025-02-05 15:32 | XMS_ITS | Clinical Summary ---
Author Organization [facility] Address [address] [place] [address] Care Team Providers Care Lot Associate Name Role Phone Unavailable Primary Care Provider Unavailabl e Encounters Date Type Department Care Team Description 12/25/2024 Telephone [facility] [address] [place] [phone] Naomi Vegas MD from Last 3 Months [...]
--- OUTSIDE RECORDS SUMMARY | 2025-02-05 15:32 | XMS_ITS ---
Author Organization [facility] Address [address] [address] Care Team Providers Care Leather Craftsman Name Role Phone GABRIELA NOLAN Primary Care Provider GABRIELA NOLAN Unavailable Unavailable REASON FOR VISIT e/no ref req c0 V, e/no ref req c0 V, e/no ref req c0 V Encounters Encounter Location Date Provider Diagnosis [facility] [address] [place] [phone] 05/29/2024 GABRIELA NOLAN Plan Of Treatment No Information Progress Notes * Jaz LYNCH LDOB: 1 (44 yo F)Acc No.[id number]:05/29/2024 Patient:?Jaz LYNCH Provider:?Gabriela Nolan MD :1980???Age:44 Y???Sex:Female D ate:05/29/2024 Address:[address] [place], [place] [phone] Subjective: * Chief Complaints: * ???1. e/no [...] Electronic signature of GABRIELA NOLAN M.D. on 02/05/2025 at 03:32 PM EDT Sign off status: Pending * Provider:?Gabriela Nolan MD Date:? 4 Generated for Aravind ventura/Nisha/Devi on:?02/05/2025 03:32 PM EDT
--- OUTSIDE RECORDS SUMMARY | 2025-02-05 15:32 | XMS_ITS ---
Author Organization [facility] Address [address] [address] Care Team Providers Care Aluminum Polisher Name Role Phone GABRIELA NOLAN Primary Care Provider GABRIELA NOLAN Unavailable Unavailable REASON FOR VISIT e/no ref req c0 Encounters Encounter Location Date Provider Diagnosis [facility] [employer] [facility] [address] [address] 05/29/2024 GABRIELA NOLAN Plan Of Treatment No Information Progress Notes * Jaz LYNCH LDOB: 1 (44 yo F)Acc No.[id number]:05/29/2024 Patient:?Jaz LYNCH Provider:?Gabriela Nolan MD :1980???Age:44 Y???Sex:Female D ate:05/29/2024 Address:[address] [place], [place] [id number] Subjective: * Chief Complaints: * ???1. E/no ref req c0. * Medical History:? Objective: * Vitals:? Assessment: Plan: * Treatment: * Images: * Electronic signature of GABRIELA NOLAN M.D. on 02/05/2025 at 03:32 PM EDT Sign off status: Pending * Provider:?Gabriela Nolan MD Date:? Generated for Aravind ventura/Nisha/eTransmitting on:?02/05/2025 03:32 PM EDT
--- OUTSIDE RECORDS SUMMARY | 2025-02-05 15:33 | XMS_ITS | Clinical Summary ---
Author Organization [facility] Address [address] [facility] [place] [address] Phone Care Team Providers Care Kier Hand Name Role Phone Unavailable Primary Care Provider [...] Description 07/16/2025 10:00 AM EDT Office Visit [facility] [address] [place] [address] Jannette Wolfe NP [address] [place] [address] Health Maintenance Due Date Last Done Comments [...]
--- OUTSIDE RECORDS SUMMARY | 2025-02-05 15:33 | XMS_ITS ---
Author Organization [facility] Address [address] [address] Care Team Providers Care Plumber Name Role Phone GABRIELA BRIAN Primary Care Provider GABRIELA BRIAN Unavailable Unavailable REASON FOR VISIT e/no ref req c0 V Encounters Encounter Location Date Provider Diagnosis [facility] [address] [facility] [address] [place] [address] 05/29/2024 GABRIELA BRIAN Plan Of Treatment No Information Progress Notes * Jaz WALSH LDOB: 1 (44 yo F)Acc No.[id number]:05/29/2024 Patient:?Jaz WALSH Provider:?Gabriela Brian MD :1980???Age:44 Y???Sex:Female D ate:05/29/2024 Address:[address] [place], [place] [phone] Subjective: * Chief Complaints: * ???1. e/no ref req c0 V. * Medical History:? Objective: * Vitals:? Assessment: Plan: * Treatment: * Images: * Electronic signature of GABRIELA BRIAN M.D. on 02/05/2025 at 03:32 PM EDT Sign off status: Pending * Provider:?Gabriela Brian MD Date:? Generated for Modestai ng/Faeverardog/eTransmitting on:?02/05/2025 03:32 PM EDT
--- OUTSIDE RECORDS SUMMARY | 2025-02-05 15:33 | XMS_ITS ---
Author Organization [facility] Address [address] [place] [address] Care Team Providers Care Telegraph Messenger Name Role Phone America HYATT, Elke Primary Care Provider Vishal Salinas Jr [phone] REASON FOR VISIT IBS Encounters Encounter Location Date Provider Diagnosis [facility] [address] [place] [address] 05/13/2024 Vishal Hutchinson Jr Plan Of Treatment No Information Progress Notes * LUCY WALSHDOB:1980 (44 yo F)Acc No.[id number]:05/13/2024 Progress Notes Patient:?LUCY WALSH Provider:?Vishal Hutchinson MD :1980???Age:43 Y???Sex:Female D ate:05/13/2024 Address:[address] [place] [address] [address] [facility] Pcp:Elke Cross MD Subjective: * Chief Complaints: [...] MD Date:?0 05/13/2024 Generated for Aravind ventura/Nisha/eTransmitting on:?02/05/2025 03:33 PM EDT
--- OUTSIDE RECORDS SUMMARY | 2025-02-05 15:33 | XMS_ITS ---
Author Organization [facility] Address [address] [place] [address] Care Team Providers Care Sash Installer Name Role Phone America HYATT, Elke Primary Care Provider Tati Hutchinson Jr, Vishal Suazo REASON FOR VISIT Pt no showed Encounters Encounter Location Date Provider Diagnosis [facility] [address] [place] [address] 09/12/2024 Vishal Hutchinson Jr Plan Of Treatment No Information Progress Notes * LUCY WALSHDOB:1980 (44 yo F)Acc No.[id number]:09/12/2024 Patient:?LUCY WALSH :1980???Age:44 Y???Sex:Female Address:[address] [place] [address] [address] , [place], [address] * true * Date:? Generated for Printi ng/Faeverardog/eTransmitting on:?02/05/2025 03:32 PM EDT
--- OUTSIDE RECORDS SUMMARY | 2025-02-05 15:33 | XMS_ITS | Patient Health Record ---
Author Organization [facility] Address [address] [facility] Floor 1 [place] [address] Care Team Providers Care Land Use Planner Name Role Phone GABRIELA NOLAN Primary Care Provider [phone] GABRIELA NOLAN Unavailable Unavailable Reason For Referral No Information Encounters Encounter Location Date Provider Diagnosis [facility] [address] 1 [place] [address] 04/02/2024 [facility] [address] [facility] [address] 1 [place] [address] 05/15/2024 [facility] [address] 1 [place] [address] 05/25/2024 [facility] [address] [facility] [address] 1 [place] [address] 05/25/2024 Plan Of Treatment No Information Insurance Providers Payer Name Payer Address Payer Phone Subscriber Number Group Number Insured Name Patient Relationship to Insured Coverage Start Date Coverage End Date [place] [id number] [facility] [address] [place] [address] [phone] [id number] Jaz Lynch Self - patient is the insured
== END ==
LOC: HO.HBST 13:09
PROVIDERS: PCP Internal Medicine; Visit Provider Counselor Mental Health
DX: F39 Unspecified mood [affective] disorder (principal); F41.1 Generalized anxiety disorder
CPT/HCPCS: 90837

== ENCOUNTER 2025-02-21 11:24 | Outpatient (AMB) | payer OTHER, SELFPAY ==
--- NOTE | 2025-02-21 11:14 | A.OFFVIS_ITS ---
VS Expanded 02/21/25 11:15 Height 5 ft 3 in Weight 186 lb BMI 32.9 Intake Visit Reasons: (TV) PO LSG 02/06/[address] Justice Required: No Allergies cat dander [CAT DANDER] Allergy (Mild, Verified 01/02/25 12:56) EYES- TEAR, ITCHY, face swells dog dander [DOG DANDER] Allergy (Mild, Verified 01/02/25 12:56) EYES- TEAR, ITCHY, hives duloxetine [From CYMBALTA] Adverse Reaction (Intermediate, Verified 01/02/25 12:56) VAGINAL BLEEDING Medication List - Last Reconciled 02/21/25 by TYRONE Green acetaminophen ER (Tylenol 8 Hour) 650 mg PO Q12H albuterol sulfate 90 mcg/actuation (Ventolin HFA) 1 - 2 puffs inhalation Q4H PRN alclometasone 0.05% appl topical BID PRN back brace As directed benzoyl peroxide 10% topical calcium carbonate-vitamin D3 250 mg-3.125 mcg (125 unit) 1 tab PO BID cariprazine (Vraylar) 3 mg PO DAILY cetirizine 10 mg PO DAILY PRN clonazepam mg PO ONCE PRN dextroamphetamine-amphetamine 25 mg ER (Adderall XR) 50 mg PO ONCE diclofenac sodium 1% topical fluticasone propionate 50 mcg/actuation 2 sprays intranasal DAILY ivermectin 1% (Soolantra) 1 appl topical DAILY levothyroxine 50 mcg PO DAILY 30 days metformin 500 mg PO BID 30 days multivitamin 1 tab PO DAILY Ozempic (semaglutide) 0.5 mg (0.736 mL) subcut QWEEK 30 days NS pregabalin 25 mg PO BID spironolactone 50 mg PO DAILY walker (Ultra-Light Rollator misc) As directed, with seat HPI Comments Details: 44-year-old female returns to the office today in follow-up. She is approximately 3 year 1 month status post sleeve gastrectomy performed on 02/06/2022. She had been followed by our registered dietitian, Jazmín in the past. Weight today is 186 lb with a BMI of 32.9. Taking mvi and brenda + D Wants to use 1% milk now instead of almond milk Preop weight (02/11/2022) 205# weight at 3 MO 176# weight at 6 MO PO 173 weight weight (12/09/22) 188# Goal 165 pounds wakes at 10 am meal plan: 10 am 2 eggs w vegetables, 1/4 c fresh berries, 4 oz coffee w tsp 2 and 2 12-2pm Orgain shake, 1 scoop in 8 oz almond milk 4-6 pm another shake, 2 scoops in 8 oz almond milk 630 pm 7 forks of protein and 7 forks of vegetables, no rice or beans. Drinkin oz water 20 oz gatorade zero Exercise plan: [employer], yoga stationary bike at home, 2-3 x week, 300 calories PFS Medical History Bilateral knee pain Sacroiliac pain Positive DANIELE (antinuclear antibody) Refused influenza vaccine PTSD (post-traumatic stress disorder) Insomnia PONV (postoperative nausea and vomiting) Gastric ulcer Cholelithiasis Sacroiliitis Spondylosis of lumbar region without myelopathy or radiculopathy Scoliosis Goiter Restless leg syndrome ADHD (attention deficit hyperactivity disorder) Anxiety OCD (obsessive compulsive disorder) Hypertension GERD (gastroesophageal reflux disease) Vitamin D deficiency PCOS (polycystic ovarian syndrome) Body mass index [BMI]40.0-44.9, adult Irritable bowel syndrome with diarrhea Environmental and seasonal allergies Breast cancer screening by mammogram Dyslipidemia Gastritis Morbid obesity Hirsutism Telogen effluvium Heartburn Degenerative disc disease, lumbar Fibromyalgia Bipolar disorder Rosacea Acquired hypothyroidism Surgical History S/P laparoscopic sleeve gastrectomy Hx of bariatric surgery Hx of shoulder surgery Hx of cholecystectomy Hx of colonoscopy Miscarriage History of nasal surgery History of rotator cuff surgery Family History Father Diabetes mellitus Mother OCD (obsessive compulsive disorder) EITAN (generalized anxiety disorder) HTN (hypertension) Cancer Cervical cancer Family/Other FH: mental illness Maternal Grandmother EITAN (generalized anxiety disorder) Glaucoma Mental health disorder Maternal Grandfather Alzheimer disease Maternal Aunt Hypothyroidism Mental health disorder Paternal Grandmother Unknown family medical history Paternal Grandfather Unknown family medical history Sister Hypothyroidism Paternal Aunt Substance use disorder Maternal Uncle Substance use disorder Social History Household Members Other:: brother Housing: Apartment Are you a primary doggy daycare activities director to a significant other at home: No Do you presently have visiting nurse or other home services: No Alcohol intake: never Patient Tobacco Use Status: Former Tobacco user Tobacco use type: Cigarette Cigarettes Per Day: 20 Years Smoked: 3 e-Cigarette/Vaping Use: Never Used service: No Current occupational status: disabled Cognitive needs: No Hearing needs: No Vision needs: Yes Telehealth Telehealth Telehealth Platform: Telephone Location of provider rendering services: practice address Location of patient: address on file Patient Identification confirmed using: Name, : Yes Telehealth method: voice only Patient verbally consented to treatment: Yes Patient verbally consented to billing insurance company: Yes Patient informed of any privacy concerns related to visit: Yes Minutes spent on Phone/Video with Pt.: 10 Assessment & Plan Assessment & Plan (1) S/P laparoscopic sleeve gastrectomy: Code(s): Z98.84 - Bariatric surgery status Category: Surgical Plan: 10 am 2 eggs w vegetables, 1/4 c fresh berries, 4 oz coffee w tsp 11/21 and 11/21 12-2pm Orgain shake, 1/2 scoop in 8 oz 1 % milk 4-6 pm another shake, 1/2 scoop in 8 oz 1 % milk 630 pm 7 forks of protein and 7 forks of vegetables Encouraged to increase exercise to daily, burning 350 calories per day. Encouraged to get yearly labs done. We will have her return to the office in a proximally 3 months Orders: Orders Insulin Today E03.9 - Hypothyroidism, unspecified, F42.9 - Obsessive-compulsive disorder, unspecified, Z98.84 - Bariatric surgery status Hemoglobin A1c Today E03.9 - Hypothyroidism, unspecified, F42.9 - Obsessive- compulsive disorder, unspecified, Z98.84 - Bariatric surgery status Zinc Today E03.9 - Hypothyroidism, unspecified, F42.9 - Obsessive-compulsive disorder, unspecified, Z98.84 - Bariatric surgery status C Reactive Protein Today E03.9 - Hypothyroidism, unspecified, F42.9 - Obsessive-compulsive disorder, unspecified, Z98.84 - Bariatric surgery status TSH reflex Free T4 Today E03.9 - Hypothyroidism, unspecified, F42.9 - Obsessive-compulsive disorder, unspecified, Z98.84 - Bariatric surgery status Ferritin Today E03.9 - Hypothyroidism, unspecified, F42.9 - Obsessive- compulsive disorder, unspecified, Z98.84 - Bariatric surgery status Complete Blood Count Auto Diff Today E03.9 - Hypothyroidism, unspecified, F42.9 - Obsessive-compulsive disorder, unspecified, Z98.84 - Bariatric surgery status IRON PROFILE Today E03.9 - Hypothyroidism, unspecified, F42.9 - Obsessive- compulsive disorder, unspecified, Z98.84 - Bariatric surgery status Vitamin B12 and Folate Today E03.9 - Hypothyroidism, unspecified, F42.9 - Obsessive-compulsive disorder, unspecified, Z98.84 - Bariatric surgery status Vitamin B1 Today E03.9 - Hypothyroidism, unspecified, F42.9 - Obsessive- compulsive disorder, unspecified, Z98.84 - Bariatric surgery status Vitamin A Today E03.9 - Hypothyroidism, unspecified, F42.9 - Obsessive- compulsive disorder, unspecified, Z98.84 - Bariatric surgery status Vitamin D 25-OH Total Today E03.9 - Hypothyroidism, unspecified, F42.9 - Obsessive-compulsive disorder, unspecified, Z98.84 - Bariatric surgery status
[2025-02-21 11:15] VITALS: BMI 32.9
--- OUTSIDE RECORDS SUMMARY | 2025-02-21 13:21 | XMS_ITS ---
Author Organization [facility] Address [address] [address] Care Team Providers Care Polysomnographer Name Role Phone GABRIELA NOLAN Primary Care Provider GABRIELA NOLAN Unavailable Unavailable REASON FOR VISIT e/no ref req c0 V, e/no ref req c0 V, e/no ref req c0 V Encounters Encounter Location Date Provider Diagnosis [facility] [address] [place] [address] 05/29/2024 GABRIELA NOLAN Plan Of Treatment No Information Progress Notes * Jaz LYNCH LDOB: 1 (44 yo F)Acc No.[id number]:05/29/2024 Patient:?Jaz LYNCH Provider:?Gabriela Nolan MD :1980???Age:44 Y???Sex:Female D ate:05/29/2024 Address:[address] [place], [place] [phone] Subjective: * Chief Complaints: * ???1. e/no [...] Electronic signature of GABRIELA NOLAN M.D. on 02/21/2025 at 01:21 PM EDT Sign off status: Pending * Provider:?Gabriela Nolan MD Date:? 4 Generated for Aravind ventura/Nisha/Devi on:?02/21/2025 01:21 PM EDT
--- OUTSIDE RECORDS SUMMARY | 2025-02-21 13:21 | XMS_ITS ---
Author Organization [facility] Address [address] [address] Care Team Providers Care Detective Bureau Chief Name Role Phone GABRIELA NOLAN Primary Care Provider GABRIELA NOLAN Unavailable Unavailable REASON FOR VISIT e/no ref req c0 Encounters Encounter Location Date Provider Diagnosis [facility] [address] [address] 05/29/2024 GABRIELA NOLAN Plan Of Treatment No Information Progress Notes * Jaz LYNCH LDOB: 1 (44 yo F)Acc No.[id number]:05/29/2024 Patient:?Jaz LYNCH Provider:?Gabriela Nolan MD :1980???Age:44 Y???Sex:Female D ate:05/29/2024 Address:[address] [place], [place] [id number] Subjective: * Chief Complaints: * ???1. E/no ref req c0. * Medical History:? Objective: * Vitals:? Assessment: Plan: * Treatment: * Images: * Electronic signature of GABRIELA NOLAN M.D. on 02/21/2025 at 01:21 PM EDT Sign off status: Pending * Provider:?Gabriela Nolan MD Date:? Generated for Aravind ventura/Nisha/eTransmitting on:?02/21/2025 01:21 PM EDT
--- OUTSIDE RECORDS SUMMARY | 2025-02-21 13:21 | XMS_ITS | Referral Summary ---
Author Organization [facility] Address [address] [facility] [address] [place] [address] Phone Care Team Providers Care Slide Fastener Repairer Name Role Phone Elke Cross MD Unavailable [phone] Social History Tobacco Use Types Packs/Day Years Used Date Smoking Tobacco: Never Assessed Sex and Gender Information Value Date Recorded Sex Assigned at Female 06/10/2024 4:31 PM EDT Gender Identity Female 06/10/2024 4:31 PM EDT Sexual Orientation Patient chooses not to answer 02/06/2025 2:03 PM EDT Plan of Treatment Upcoming Encounters Date Type Department Care Team (Late st Contact Info) Description 07/16/2025 10:00 AM EDT Office Visit [facility] [address] [place] [address] Jannette Wolfe NP [address] [place] [address] Care Teams Slide Fastener Repairer Relationship Specialty Start Date End Date Elke Cross MD [address] [place] [address] PCP - Insurance 02/06/25
--- OUTSIDE RECORDS SUMMARY | 2025-02-21 13:22 | XMS_ITS ---
Author Organization [facility] Address [address] [place] [address] Care Team Providers Care Engine Boss Name Role Phone America HYATT, Elke Primary Care Provider Vishal Salinas Jr [phone] REASON FOR VISIT Patient presents today for IBS Encounters Encounter Location Date Provider Diagnosis [facility] [address] [place] [address] 09/12/2024 Vishal Hutchinson Jr Plan Of Treatment No Information Progress Notes * LUCY WALSHDOB:1980 (44 yo F)Acc No.[id number]:09/12/2024 Progress Notes Patient:?LUCY WALSH Provider:?Vishal Hutchinson MD :1980???Age:44 Y???Sex:Female D ate:09/12/2024 Address:[address] [place] [address] [address] [facility] Pcp:Elke Cross MD Subjective: * Chief Complaints: [...] Provider:?Vishal Hutchinson MD Date:?1 Generated for Modestai lorenzo/Faeverardog/eTransmitting on:?02/21/2025 01:21 PM EDT
--- OUTSIDE RECORDS SUMMARY | 2025-02-21 13:22 | XMS_ITS ---
Author Organization [facility] Address [address] [place] [phone] Care Team Providers Care Motor Vehicle Examiner Name Role Phone America HYATT, Elke Primary Care Provider Vishal Salinas Jr REASON FOR VISIT IBS Encounters Encounter Location Date Provider Diagnosis [facility] [address] [facility] [address] [place] [address] 05/13/2024 Vishal Hutchinson Jr Plan Of Treatment No Information Progress Notes * LUCY WALSHDOB:1980 (44 yo F)Acc No.[id number]:05/13/2024 Progress Notes Patient:?LUCY WALSH Provider:?Vishal Hutchinson MD :1980???Age:43 Y???Sex:Female D ate:05/13/2024 Address:[address] [place] [address] [address] [facility] Pcp:Elke Cross MD Subjective: * Chief Complaints: [...] MD Date:?0 05/13/2024 Generated for Aravind ventura/Nisha/eTransmitting on:?02/21/2025 01:22 PM EDT
--- OUTSIDE RECORDS SUMMARY | 2025-02-21 13:22 | XMS_ITS | Clinical Summary ---
Author Organization [facility] Address [address] [place] [address] Care Team Providers Care Counselor Manager Name Role Phone Unavailable Primary Care Provider Unavailabl e Source Comments PLEASE NOTE, if this patient is a minor, it may be UNLAWFUL to discuss sensitive information that is contained in these records (such as FAMILY PLANNING, MENTAL HEALTH or SUBSTANCE ABUSE) with the minor patient's parent or other person without the patient's specific authorization.[facility] Social History Tobacco Use Types Packs/Day Years Used Date Smoking Tobacco: Never Assessed Social Connections Answer Date Recorded Connectedness 0 08/05/2024 Financial Resource Strain Answer Date R ecorded Financial Resource Strain 0 2023 Stress Answer Date Recorded Stress 0 06/24/2024 Physical Activity Answer Date Recorded Physical Activity 0 06/24/2024 Food Insecurity Answer Date Recorded Food 0 08/15/2024 Transportation Needs Answer Date Record ed Transportation 0 06/24/2024 Housing Stability Answer Date Recorded Housing 0 06/24/2024 Safety and Environment Answer Date Nabil rded Safety 0 06/24/2024 Utilities Answer Date Recorded Utilities 0 06/24/2024 Employment Answer Date Recorded Stress 0 08/05/2024 Comments Unknown Sex and Gender Information Value Date Recorded Sex Assigned at Female 02/06/2025 11:39 AM PDT Legal Sex Female 7:26 AM PST Gender Identity Female 02/06/2025 11:39 AM PDT Sexual Orientation Straight 02/06/2025 11 :41 AM PDT Plan of Treatment Upcoming Encounters Date Type Department Care Team (Late st Contact Info) Description 03/20/2025 1:30 PM EDT Office Visit [facility] [address] [place] [phone] Namrata Dixon MD [address] [place] [phone] Health Maintenance Due Date Last Done Comments Anxiety Screening 1981 Diabetes Screening 1981 HPV Screening 1981 Hepatitis C Screening 1981 Lipid Screening 1981 Pap + HPV 1981 Tobacco Screening 1981 HIV Screening 1996 Relationship Safety Screening/Counseling 1996 Hypertension Screening (#1) 1999 Imm-DTaP/Tdap/Td (1 - Tdap) 2000 Imm-Hepatitis B (1 of 3 - 19+ 3-dose series) 0 Cervical Cancer Screening 2002 Pap Smear 2002 Breast Cancer Screening (Mammogram) 2021 [id number]-61 (2023- season) 2024 Imm-Influenza (#1) 2024 Alcohol and Drug Screen 11/20/2024 Depression Annual Screen 11/20/2024 Cervical Ablation/Cold-Knife Conization Discontinued Cervical Cryotherapy Discontinued Colposcopy Discontinued Endometrial Biopsy Discontinued Excision/Leep Discontinued HPV Genotyping Discontinued Vaginal Pap Discontinued Vulvoscopy Discontinued Insurance [employer] PLAN Member Subscriber Plan / Payer (Ef fective 2024-Present) Name:LynchJaz Relation to Subscriber:Self Name:Jaz Lynch Payer ID:[id number] Group ID:Not on file Type:Medicaid Address: [facility] [address] [place] [address]
--- OUTSIDE RECORDS SUMMARY | 2025-02-21 13:22 | XMS_ITS | Patient Health Record ---
Author Organization [facility] Address [address] [place] [address] Care Team Providers Care Time Clock Inspector Name Role Phone [place] HYATT, Elke Primary [...] Problem Status W/U Status Risk Notes Problem [id number] Dysphagia (R13.10) Active confirmed Problem [id number] Abnormal upper gastrointestinal barium series (R93.3) Active confirmed Encounters Encounter Location Date Provider Diagnosis [facility] [address] [place] [address] 09/12/2024 Vishal Hutchinson Jr Plan Of Treatment Future Test Test Name Order Date UPPER GI ENDOSCOPY 02/22/2017 Insurance Providers Payer Name Payer Address Payer Phone Subscriber Number Group Number Insured Name Patient Relationship to Insured Coverage Start Date Coverage End Date [facility] [address] [address] [place], [place] [id number] LUCY WALSH Self - patient is the insured MEDICAID OF [facility] [address] [place] [address] [id number] LUCY WALSH Self - patient is the insured Medical (General) History Medical History History ICD Code hypothyroidism attention deficit disorder bipolar disorder PTSD vitamin D deficiency carpal tunnel syndrome menorrhagia
--- OUTSIDE RECORDS SUMMARY | 2025-02-21 13:22 | XMS_ITS | Clinical Summary ---
Author Organization [facility] Address [address] [place] [address] Care Team Providers Care Corporate Counselor Name Role Phone Unavailable Primary Care Provider Unavailabl e Encounters Date Type Department Care Team Description 12/25/2024 Telephone [facility] [address] [place] [phone] Naomi Vegas MD from Last 3 Months [...]
--- OUTSIDE RECORDS SUMMARY | 2025-02-21 13:22 | XMS_ITS | Clinical Summary ---
Author Organization [facility] Address [address] [place] [address] Phone Care Team Providers Care Flame Hardening Machine Setter Name Role Phone Elke Cross MD Unavailable Social History Tobacco Use Types Packs/Day Years [...] Description 07/16/2025 10:00 AM EDT Office Visit [facility] [address] [place] [address] Jannette Wolfe NP [address] [place] [address] Health Maintenance Due Date Last Done Comments [...] + HPV 2002 MAMMOGRAM 2021 COVID-19 Vaccine (1 - 2023-2 5 season) 2024 INFLUENZA VACCINE (#1) 2024 [...] on patient's age to complete this topic Care Teams Flame Hardening Machine Setter Relationship Specialty Start Date End Date Elke Cross MD [facility] [place] [phone] PCP - Insurance 02/06/25
--- OUTSIDE RECORDS SUMMARY | 2025-02-21 13:22 | XMS_ITS ---
Author Organization [facility] Address [address] [address] Care Team Providers Care Harvester Operator Name Role Phone GABRIELA NOLAN Primary Care Provider GABRIELA NOLAN Unavailable Unavailable REASON FOR VISIT e/no ref req c0 V Encounters Encounter Location Date Provider Diagnosis [facility] 75 [facility] 1 [place] [address] 05/29/2024 GABRIELA NOLAN Plan Of Treatment No Information Progress Notes * Jaz LYNCH LDOB: 1 (44 yo F)Acc No.[id number]:05/29/2024 Patient:?Jaz LYNCH Provider:?Gabriela Nolan MD :1980???Age:44 Y???Sex:Female D ate:05/29/2024 Address:[address] [place], [place] [phone] Subjective: * Chief Complaints: * ???1. e/no ref req c0 V. * Medical History:? Objective: * Vitals:? Assessment: Plan: * Treatment: * Images: * Electronic signature of GABRIELA NOLAN M.D. on 02/21/2025 at 01:22 PM EDT Sign off status: Pending * Provider:?Gabriela Nolan MD Date:? Generated for Aravind ventura/Nisha/eTransmitting on:?02/21/2025 01:22 PM EDT
--- OUTSIDE RECORDS SUMMARY | 2025-02-21 13:22 | XMS_ITS ---
Author Organization [facility] Address [address] [place] [phone] Care Team Providers Care Legal Document Assistant Name Role Phone America HYATT, Elke Primary Care Provider Vishal Salinas Jr REASON FOR VISIT Pt no showed Encounters Encounter Location Date Provider Diagnosis [facility] [address] [place] [address] 09/12/2024 Vishal Hutchinson Jr Plan Of Treatment No Information Progress Notes * LUCY WALSHDOB:1980 (44 yo F)Acc No.[id number]:09/12/2024 Patient:?LUCY WALSH :1980???Age:44 Y???Sex:Female Address:[address] [place] [address] [address] , [place], [address] * true * Date:? Generated for Printi ng/Faeverardog/eTransmitting on:?02/21/2025 01:22 PM EDT
--- OUTSIDE RECORDS SUMMARY | 2025-02-21 13:22 | XMS_ITS | Patient Health Record ---
Author Organization [facility] Address [address] [facility] Floor 1 [place] [address] Care Team Providers Care Demand Generator Manager Name Role Phone GABRIELA NOLAN Primary Care Provider GABRIELA NOLAN Unavailable Unavailable Reason For Referral No Information Encounters Encounter Location Date Provider Diagnosis [facility] [address] Floor 1 [place] [address] 04/02/2024 [facility] [place] [address] [facility] Floor 1 [place] [address] 05/15/2024 [facility] [address] Floor 1 [place] [address] 05/25/2024 [facility] [address] [facility] Floor 1 [place] [address] 05/25/2024 Plan Of Treatment No Information Insurance Providers Payer Name Payer Address Payer Phone Subscriber Number Group Number Insured Name Patient Relationship to Insured Coverage Start Date Coverage End Date [place] [address] [facility] [address] [place] [id number] Jaz Lynch Self - patient is the insured
== END 2025-02-21 13:08 | disposition home or self-care (01) ==
LOC: HO.HBS 11:24
PROVIDERS: PCP Internal Medicine; Visit Provider Physician Assistant Surgical
DX: E66.811 Obesity, class 1 (principal); Z68.32 Body mass index [BMI] 32.0-32.9, adult; Z90.3 Acquired absence of stomach [part of]; Z98.84 Bariatric surgery status
CPT/HCPCS: 99213

== ENCOUNTER 2025-02-28 11:17 | Outpatient (REF) | payer OTHER, SELFPAY ==
[2025-02-28 11:34] LABS: MANUAL DIFF FLAG NO
[2025-02-28 11:56] LABS: Basophils Absolute Auto 0.2 X10*3/uL (0.0-0.2); Basophils Percent Auto 1.7 % (0-2); Eosinophils Absolute Auto 0.1 X10*3/uL (0.0-0.4); Eosinophils Percent Auto 1.2 % (0-4); Hematocrit 42.7 % (37.0-47.0); Hemoglobin 14.1 g/dl (12.0-16.0); Imm Gran Abs Auto 0.03 X10*3/uL (0.00-0.03); Imm Gran Pct Auto 0.3 % (0.0-0.4); Lymphocytes Absolute Auto 3.4 X10*3/uL (1.2-4.9); Lymphocytes Percent Auto 32.5 % (20-40); Mean Corpuscular Hemoglobin 30.9 pg (27.0-33.0); Mean Corpuscular Volume 93.4 fL (80.0-98.0); Mean Platelet Volume 9.6 fL (9.4-12.3); Monocytes Absolute Auto 0.8 X10*3/uL (0.1-1.2); Monocytes Percent Auto 7.6 % (2-11); Neutrophils Absolute Auto 5.9 x10*3/uL (2.0-8.3); Neutrophils Percent Auto 56.7 % (45-73); Platelet Count 384 X10*3/uL (160-400); Red Blood Count 4.57 X10*6/uL (4.20-5.50); Red Cell Distribution Width 11.6 % (11.0-16.0); White Blood Count 10.5 X10*3/uL (4.8-10.8)
[2025-02-28 12:09] LABS: Estimated Average Glucose 103 mg/dL; Hemoglobin A1C 125.8519 umol/L; Hemoglobin A1c % 5.2 % (<6.0)
--- OUTSIDE RECORDS SUMMARY | 2025-02-28 12:15 | XMS_ITS ---
Author Organization [facility] Address [address] [address] Care Team Providers Care Facilities Clerk Name Role Phone GABRIELA NOLAN Primary Care Provider GABRIELA NOLAN Unavailable Unavailable REASON FOR VISIT e/no ref req c0 V, e/no ref req c0 V, e/no ref req c0 V Encounters Encounter Location Date Provider Diagnosis [facility] [address] [place] [phone] 05/29/2024 GABRIELA NOLAN Plan Of Treatment No Information Progress Notes * Jaz LYNCH LDOB: 1 (44 yo F)Acc No.[id number]:05/29/2024 Patient:?Jaz LYNCH Provider:?Gabriela Nolan MD :1980???Age:44 Y???Sex:Female D ate:05/29/2024 Address:[address] [place], [place] [phone] Subjective: * Chief Complaints: * ???1. e/no [...] Electronic signature of GABRIELA NOLAN M.D. on 02/28/2025 at 12:15 PM EDT Sign off status: Pending * Provider:?Gabriela Nolan MD Date:? 4 Generated for Aravind ventura/Nisha/Devi on:?02/28/2025 12:15 PM EDT
--- OUTSIDE RECORDS SUMMARY | 2025-02-28 12:15 | XMS_ITS | Patient Health Record ---
Author Organization [facility] Address [address] [place] [address] Care Team Providers Care Drums Teacher Name Role Phone [place] HYATT, Elke Primary [...] Problem Status W/U Status Risk Notes Problem [id number] Dysphagia (R13.10) Active confirmed Problem [id number] Abnormal upper gastrointestinal barium series (R93.3) Active confirmed Encounters Encounter Location Date Provider Diagnosis [facility] [address] [place] [address] 09/12/2024 Vishal Hutchinson Jr Plan Of Treatment Future Test Test Name Order Date UPPER GI ENDOSCOPY 02/22/2017 Insurance Providers Payer Name Payer Address Payer Phone Subscriber Number Group Number Insured Name Patient Relationship to Insured Coverage Start Date Coverage End Date [facility] [address] [address] [place], [place] [id number] LUCY WALSH Self - patient is the insured MEDICAID OF [facility] [address] [address] [address] [place] [address] [id number] LUCY WALSH Self - patient is the insured Medical (General) History Medical History History ICD Code hypothyroidism attention deficit disorder bipolar disorder PTSD vitamin D deficiency carpal tunnel syndrome menorrhagia
--- OUTSIDE RECORDS SUMMARY | 2025-02-28 12:15 | XMS_ITS | Referral Summary ---
Author Organization [facility] Address [address] [place] [address] Phone Care Team Providers Care Swabber Name Role Phone Elke Cross MD Unavailable [phone] Encounters Date Type Department Care Team Description 02/21/2025 Telephone [facility] [address] [place] [phone] Jannette Wolfe NP from Last 3 Months Social History Tobacco Use Types Packs/Day Years Used Date Smoking Tobacco: Never Assessed Sex and Gender Information Value Date Recorded Sex Assigned at Female 06/10/2024 4:31 PM EDT Gender Identity Female 06/10/2024 4:31 PM EDT Sexual Orientation Patient chooses not to answer 02/06/2025 2:03 PM EDT Plan of Treatment Not on file Care Teams Swabber Relationship Specialty Start Date End Date Elke Cross MD [address] [place] [address] PCP - Insurance 02/06/25
--- OUTSIDE RECORDS SUMMARY | 2025-02-28 12:15 | XMS_ITS | Clinical Summary ---
Author Organization [facility] Address [address] [place] [address] Care Team Providers Care Lab Intern Name Role Phone Unavailable Primary Care Provider Unavailabl e Encounters Date Type Department Care Team Description 12/25/2024 Telephone [facility] [address] [place] [phone] Naomi Vegas MD from Last 3 Months [...]
--- OUTSIDE RECORDS SUMMARY | 2025-02-28 12:16 | XMS_ITS | Patient Health Record ---
Author Organization [facility] Address [address] [facility] Floor 1 [place] [address] Care Team Providers Care Oiler Helper Name Role Phone GABRIELA NOLAN Primary Care Provider GABRIELA NOLAN Unavailable Unavailable Reason For Referral No Information Encounters Encounter Location Date Provider Diagnosis [facility] [address] Floor 1 [place] [address] 04/02/2024 [facility] [address] [facility] Floor 1 [place] [address] 05/15/2024 [facility] [address] Floor 1 [place] [address] 05/25/2024 [facility] [address] [facility] Floor 1 [place] [address] 05/25/2024 Plan Of Treatment No Information Insurance Providers Payer Name Payer Address Payer Phone Subscriber Number Group Number Insured Name Patient Relationship to Insured Coverage Start Date Coverage End Date [place] [id number] [facility] [address] [place] [id number] Jaz Lynch Self - patient is the insured
--- OUTSIDE RECORDS SUMMARY | 2025-02-28 12:16 | XMS_ITS ---
Author Organization [facility] Address [address] [address] Care Team Providers Care Automotive Quality Engineer Name Role Phone GABRIELA NOLAN Primary Care Provider GABRIELA NOLAN Unavailable Unavailable REASON FOR VISIT e/no ref req c0 Encounters Encounter Location Date Provider Diagnosis [facility] [address] [address] 05/29/2024 GABRIELA NOLAN Plan Of Treatment No Information Progress Notes * Jaz LYNCH LDOB: 1 (44 yo F)Acc No.[id number]:05/29/2024 Patient:?Jaz LYNCH Provider:?Gabriela Nolan MD :1980???Age:44 Y???Sex:Female D ate:05/29/2024 Address:[address] [place], [place] [phone] Subjective: * Chief Complaints: * ???1. E/no ref req c0. * Medical History:? Objective: * Vitals:? Assessment: Plan: * Treatment: * Images: * Electronic signature of GABRIELA NOLAN M.D. on 02/28/2025 at 12:16 PM EDT Sign off status: Pending * Provider:?Gabriela Nolan MD Date:? Generated for Aravind ventura/Nisha/eTransmitting on:?02/28/2025 12:16 PM EDT
--- OUTSIDE RECORDS SUMMARY | 2025-02-28 12:16 | XMS_ITS | Encounter Summary ---
Author Organization [facility] Address [address] [facility] [place] [address] Phone Care Team Providers Care Disposal Man Name Role Phone Elke Cross MD Unavailable [phone] Encounter Details Date Type Department Care Team (Late st Contact Info) Description 02/21/2025 Telephone [facility] [address] [place] [phone] Jannette Wolfe NP [address] [place] [address] Social History Tobacco Use Types Packs/Day Years Used Date Smoking Tobacco: Never Assessed Sex and Gender Information Value Date Recorded Sex Assigned at Female 06/10/2024 4:31 PM EDT Gender Identity Female 06/10/2024 4:31 PM EDT Sexual Orientation Patient chooses not to answer 02/06/2025 2:03 PM EDT documented as of this encounter Miscellaneous Notes * Telephone Encounter - Jeanine Esposito [place] - 02/21/2025 1:29 PM EDT No chief complaint on file. Patient informed appt has been canceled 02/21/25@ 1:24pm/ documented in this encounter Plan of Treatment Not on file documented as of this encounter Visit Diagnoses Not on filedocumented in this encounter Care Teams Disposal Man Relationship Specialty Start Date End Date Elke Cross MD [address] [place] [address] PCP - Insurance 02/06/25 documented as of this encounter
--- OUTSIDE RECORDS SUMMARY | 2025-02-28 12:16 | XMS_ITS ---
Author Organization [facility] Address [address] [place] [address] Care Team Providers Care Rail Car Welder Name Role Phone [place] HYATT, Elke Primary Care Provider Vishal Salinas Jr REASON FOR VISIT IBS Encounters Encounter Location Date Provider Diagnosis [facility] [address] [facility] [address] [place] [phone] 05/13/2024 Vishal Hutchinson Jr Plan Of Treatment No Information Progress Notes * LUCY WALSHDOB:1980 (44 yo F)Acc No.[id number]:05/13/2024 Progress Notes Patient:?LUCY WALSH Provider:?Vishal Hutchinson MD :1980???Age:43 Y???Sex:Female D ate:05/13/2024 Address:[address] [place] [address] [address] [facility] Pcp:Elke Cross MD Subjective: * Chief Complaints: [...] MD Date:?0 05/13/2024 Generated for Aravind ventura/Nisha/eTransmitting on:?02/28/2025 12:16 PM EDT
--- OUTSIDE RECORDS SUMMARY | 2025-02-28 12:16 | XMS_ITS | Clinical Summary ---
Author Organization [facility] Address [address] [place] [address] Care Team Providers Care Paper Mill Supervisor Name Role Phone Unavailable Primary Care Provider [...] Description 03/20/2025 1:30 PM EDT Office Visit [facility] [address] [place] [phone] Namrata Dixon MD [address] [place] [phone] Health Maintenance Due Date Last Done Comments [...] Smear 2002 Breast Cancer Screening (Mammogram) 2021 Vzl-[id number]-48 (2023- season) 2024 Imm-Influenza (#1) 2024 Alcohol and Drug Screen 11/20/2024 Depression Annual Screen 11/20/2024 Cervical Ablation/Cold-Knife Conization Discontinued Cervical Cryotherapy Discontinued Colposcopy Discontinued Endometrial Biopsy Discontinued Excision/Leep Discontinued HPV Genotyping Discontinued Vaginal Pap Discontinued Vulvoscopy Discontinued Insurance [employer] PLAN Member Subscriber Plan / Payer (Ef fective 2024-Present) Name:LynchJaz Relation to Subscriber:Self Name:Jaz Lynch Payer ID:[id number] Group ID:Not on file Type:Medicaid Address: [facility] [address] [place] [address]
--- OUTSIDE RECORDS SUMMARY | 2025-02-28 12:16 | XMS_ITS ---
Author Organization [facility] Address [address] [place] [address] Care Team Providers Care Vamp Marker Name Role Phone America HYATT, Elke Primary Care Provider Vishal Salinas Jr REASON FOR VISIT Patient presents today for IBS Encounters Encounter Location Date Provider Diagnosis [facility] [address] [facility] [address] [place] [address] 09/12/2024 Vishal Hutchinson Jr Plan Of Treatment No Information Progress Notes * LUCY WALSHDOB:1980 (44 yo F)Acc No.[id number]:09/12/2024 Progress Notes Patient:?LUCY WALSH Provider:?Vishal Hutchinson MD :1980???Age:44 Y???Sex:Female D ate:09/12/2024 Address:[address] [place] [address] [address] [facility] Pcp:Elke Cross MD Subjective: * Chief Complaints: [...] Hutchinson MD Date:?1 Generated for Modestai lorenzo/Faeverardog/eTransmitting on:?02/28/2025 12:15 PM EDT
--- OUTSIDE RECORDS SUMMARY | 2025-02-28 12:16 | XMS_ITS ---
Author Organization [facility] Address [address] [address] Care Team Providers Care Physical Director Name Role Phone GABRIELA BRIAN Primary Care Provider [phone] GABRIELA BRIAN Unavailable Unavailable REASON FOR VISIT e/no ref req c0 V Encounters Encounter Location Date Provider Diagnosis [facility] [address] [facility] 1 [place] [address] 05/29/2024 GABRIELA BRIAN Plan Of Treatment No Information Progress Notes * Jaz WALSH LDOB: 1 (44 yo F)Acc No.[id number]:05/29/2024 Patient:?Jaz WALSH Provider:?Gabriela Brian MD :1980???Age:44 Y???Sex:Female D ate:05/29/2024 Address:[address] [place], [place] [phone] Subjective: * Chief Complaints: * ???1. e/no ref req c0 V. * Medical History:? Objective: * Vitals:? Assessment: Plan: * Treatment: * Images: * Electronic signature of GABRIELA BRIAN M.D. on 02/28/2025 at 12:16 PM EDT Sign off status: Pending * Provider:?Gabriela Brian MD Date:? Generated for Modestai ng/Faeverardog/eTransmitting on:?02/28/2025 12:16 PM EDT
--- OUTSIDE RECORDS SUMMARY | 2025-02-28 12:17 | XMS_ITS | Clinical Summary ---
Author Organization [facility] Address [address] [facility] [place] [address] Phone Care Team Providers Care Plastic Parts Designer Name Role Phone Elke Cross MD Unavailable [phone] Encounters Date Type Department Care Team Description 02/21/2025 Telephone [facility] [address] [place] [phone] Jannette Wolfe NP from Last 3 Months Social History Tobacco Use Types Packs/Day Years Used Date Smoking Tobacco: Never Assessed Sex and Gender Information Value Date Recorded Sex Assigned at Female 06/10/2024 4:31 PM EDT Gender Identity Female 06/10/2024 4:31 PM EDT Sexual Orientation Patient chooses not to answer 02/06/2025 2:03 PM EDT Plan of Treatment Health Maintenance Due Date [...] + HPV 2002 MAMMOGRAM 2021 COVID-19 Vaccine ( - 2023-2 5 season) 2024 INFLUENZA VACCINE [...] age to complete this topic Care Teams Plastic Parts Designer Relationship Specialty Start Date End Date Elke Cross [place] [address] PCP - Insurance 02/06/25
--- OUTSIDE RECORDS SUMMARY | 2025-02-28 12:17 | XMS_ITS ---
Author Organization [facility] Address [address] [place] [address] Care Team Providers Care Director Of Manufacturing Operations Name Role Phone [place] HYATT, Elke Primary Care Provider Tati Hutchinson Jr, Vishal Suazo [phone] REASON FOR VISIT Pt no showed Encounters Encounter Location Date Provider Diagnosis [facility] [address] [place] [address] 09/12/2024 Vishal Hutchinson Jr Plan Of Treatment No Information Progress Notes * LUCY WALSHDOB:1980 (44 yo F)Acc No.[id number]:09/12/2024 Patient:?LUCY WALSH :1980???Age:44 Y???Sex:Female Address:[address] [place] [address] [address] , [place], [address] * true * Date:? Generated for Printi ng/Faeverardog/eTransmitting on:?02/28/2025 12:16 PM EDT
[2025-02-28 12:34] LABS: C Reactive Protein 0.18 mg/dL (< or = 0.50); Iron 85 mcg/dL (30-160); Percent Iron Saturation 34 % (15-50); Total Iron Binding Capacity 250 mcg/dL (228-428); Unsaturated Iron Binding 165 ug/dL
[2025-02-28 12:46] LABS: Ferritin 113 ng/mL (10-250); Insulin 5 uU/mL (2-29); TSH reflex Free T4 1.53 uIU/mL (0.32-4.0); Vitamin D 25-OH Total 44.9 ng/mL (>30)
[2025-02-28 12:57] LABS: Folate 12.2 ng/mL (> or = 4.0); Vitamin B12 663 pg/mL (200-900)
[2025-03-03 23:43] LABS: Zinc 94 mcg/dL (60-130)
[2025-03-04 16:18] LABS: Vitamin A 70 mcg/dL (38-98)
[2025-03-11 15:18] LABS: Vitamin B1 8 nmol/L (8-30)
== END 2025-02-28 11:18 | disposition home or self-care (01) ==
LOC: HO.LAB 11:17
PROVIDERS: PCP Internal Medicine; Visit Provider Physician Assistant Surgical
DX: Z98.84 Bariatric surgery status (principal); F42.9 Obsessive-compulsive disorder, unspecified; E03.9 Hypothyroidism, unspecified
CPT/HCPCS: 36415; 82306; 82607; 82728; 82746; 83036; 83525; 83540; 84425; 84443; 84590; 84630; 85025; 86140

== ENCOUNTER 2025-03-04 13:33 | Outpatient (AMB) | payer OTHER, SELFPAY ==
--- NOTE | 2025-03-04 13:15 | A.OFFWM_ITS ---
Intake Intake Visit Reasons: VIDEO PO LSG 02/06/22 Allergies cat dander [CAT DANDER] Allergy (Mild, Verified 01/02/25 12:56) EYES- TEAR, ITCHY, face swells dog dander [DOG DANDER] Allergy (Mild, Verified 01/02/25 12:56) EYES- TEAR, ITCHY, hives duloxetine [From CYMBALTA] Adverse Reaction (Intermediate, Verified 01/02/25 12:56) VAGINAL BLEEDING PFSH Medical History Bilateral knee pain Sacroiliac pain Positive DANIELE (antinuclear antibody) Refused influenza vaccine PTSD (post-traumatic stress disorder) Insomnia PONV (postoperative nausea and vomiting) Gastric ulcer Cholelithiasis Sacroiliitis Spondylosis of lumbar region without myelopathy or radiculopathy Scoliosis Goiter Restless leg syndrome ADHD (attention deficit hyperactivity disorder) Anxiety OCD (obsessive compulsive disorder) Hypertension GERD (gastroesophageal reflux disease) Vitamin D deficiency PCOS (polycystic ovarian syndrome) Body mass index [BMI]40.0-44.9, adult Irritable bowel syndrome with diarrhea Environmental and seasonal allergies Breast cancer screening by mammogram Dyslipidemia Gastritis Morbid obesity Hirsutism Telogen effluvium Heartburn Degenerative disc disease, lumbar Fibromyalgia Bipolar disorder Rosacea Acquired hypothyroidism Surgical History S/P laparoscopic sleeve gastrectomy Hx of bariatric surgery Hx of shoulder surgery Hx of cholecystectomy Hx of colonoscopy Miscarriage History of nasal surgery History of rotator cuff surgery Family History Father Diabetes mellitus Mother OCD (obsessive compulsive disorder) EITAN (generalized anxiety disorder) HTN (hypertension) Cancer Cervical cancer Family/Other FH: mental illness Maternal Grandmother EITAN (generalized anxiety disorder) Glaucoma Mental health disorder Maternal Grandfather Alzheimer disease Maternal Aunt Hypothyroidism Mental health disorder Paternal Grandmother Unknown family medical history Paternal Grandfather Unknown family medical history Sister Hypothyroidism Paternal Aunt Substance use disorder Maternal Uncle Substance use disorder Social History Household Members Other:: brother Housing: Apartment Are you a primary primary care provider to a significant other at home: No Do you presently have visiting nurse or other home services: No Alcohol intake: never Patient Tobacco Use Status: Former Tobacco user Tobacco use type: Cigarette Cigarettes Per Day: 20 Years Smoked: 3 e-Cigarette/Vaping Use: Never Used service: No Current occupational status: disabled Cognitive needs: No Hearing needs: No Vision needs: Yes Behavioral Health Assessment Weight Management Therapy Therapy Notes Details Subjective: The patient reports experiencing some weight loss and is making efforts to be more active overall. However, she contracted COVID-19, which led her to stop attending the [facility]. She also notes a tendency to overthink, which has been affecting her recently, triggering feelings of anxiety and sadness. Objective: PT presents for a f/up visit via Telehealth. . During today's session, several therapeutic interventions were implemented to address the patient's symptoms of anxiety and sadness. Cognitive Behavioral Therapy (CBT) techniques were utilized, including cognitive restructuring to help the patient identify and challenge negative thought patterns, and behavioral activation to encourage re-engagement in enjoyable activities, such as returning to the [facility]. Mindfulness and relaxation techniques, such as mindfulness meditation and progressive muscle relaxation, were reviewed to help manage overthinking and physical symptoms of anxiety. Problem-solving skills were discussed to address specific stressors, and goal setting was used to establish realistic objectives for physical activity and mental health. Supportive counseling provided a space for the patient to express her feelings, while psychoeducation was offered to enhance her understanding of the interplay between thoughts, emotions, and behaviors. Overall, the session focused on empowering the patient with strategies to manage her symptoms and improve her well-being. Assessment/Response: * Mental status: down, overthinking, mild anxiety. Functioning issues due to health challenges. * Risk reported/identified: None PT was open, active and engaged and responded well to interventions. Assessment & Plan Assessment & Plan (1) Unspecified mood [affective] disorder: Code(s): F39 - Unspecified mood [affective] disorder (2) Generalized anxiety disorder: Code(s): F41.1 - Generalized anxiety disorder Plan Continue bi-weekly behavioral health sessions to support mood regulation and pain coping strategies. Next Appointment:03/18/25 at 1pm, Telehealth. Telehealth Telehealth Telehealth Platform: [facility] Location of provider rendering services: other Location of patient: address on file Patient Identification confirmed using: Name, : Yes Telehealth method: video Patient verbally consented to treatment: Yes Patient verbally consented to billing insurance company: Yes Patient informed of any privacy concerns related to visit: Yes Minutes spent on Phone/Video with Pt.: 60 Coding Level of Care Code Established Pt Tele Psytx >53 mins (95695) Patient Type Established Diagnoses Unspecified mood [affective] disorder F39 Generalized anxiety disorder F41.1 Time Spent (min) 60
--- OUTSIDE RECORDS SUMMARY | 2025-03-04 16:36 | XMS_ITS | Referral Summary ---
Author Organization [facility] r Address [address] [address] Phone Care Team Providers Care Orthodontic Technician Assistant Name Role Phone Elke Cross MD Unavailable [phone] Encounters Date Type Department Care Team Description 02/21/[address] [phone] Jannette Wolfe NP from Last 3 Months Social History Tobacco Use Types Packs/Day Years Used Date Smoking Tobacco: Never Assessed Comments Unknown Sex and Gender Information Value Date Recorded Sex Assigned at Female 06/10/2024 4:31 PM EDT Legal Sex Female 4:17 PM EDT Gender Identity Female 06/10/2024 4:31 PM EDT Sexual Orientation Patient chooses not to answer 02/06/2025 2:03 PM EDT Plan of Treatment Not on file Care Teams Orthodontic Technician Assistant Relationship Specialty Start Date End Date Elke Cross MD [address] [place] [id number] PCP - Insurance 02/06/25
--- OUTSIDE RECORDS SUMMARY | 2025-03-04 16:36 | XMS_ITS ---
Author Organization [facility] Address [address] [address] Care Team Providers Care Esthetic Dermatologist Name Role Phone GABRIELA NOLAN Primary Care Provider GABRIELA NOLAN Unavailable Unavailable REASON FOR VISIT e/no ref req c0 V, e/no ref req c0 V, e/no ref req c0 V Encounters Encounter Location Date Provider Diagnosis [facility] [address] [place] [phone] 05/29/2024 GABRIELA NOLAN Plan Of Treatment No Information Progress Notes * Jaz LYNCH LDOB: 1 (44 yo F)Acc No.[id number]:05/29/2024 Patient:?Jaz LYNCH Provider:?Gabriela Nolan MD :1980???Age:44 Y???Sex:Female D ate:05/29/2024 Address:[address] [place], [place] [id number] Subjective: * Chief Complaints: * ???1. e/no [...] Electronic signature of GABRIELA NOLAN M.D. on 03/04/2025 at 04:36 PM EDT Sign off status: Pending * Provider:?Gabriela Nolan MD Date:? 4 Generated for Aravind ventura/Nisha/Devi on:?03/04/2025 04:36 PM EDT
--- OUTSIDE RECORDS SUMMARY | 2025-03-04 16:37 | XMS_ITS | Patient Health Record ---
Author Organization [facility] Address [address] [place] [address] Care Team Providers Care Juice Bar Team Member Name Role Phone America HYATT, Elke Primary [...] Problem Status W/U Status Risk Notes Problem [id number] Dysphagia (R13.10) Active confirmed Problem [id number] Abnormal upper gastrointestinal barium series (R93.3) Active confirmed Encounters Encounter Location Date Provider Diagnosis [facility] [address] [place] [address] 09/12/2024 Vishal Hutchinson Jr Plan Of Treatment Future Test Test Name Order Date UPPER GI ENDOSCOPY 02/22/2017 Insurance Providers Payer Name Payer Address Payer Phone Subscriber Number Group Number Insured Name Patient Relationship to Insured Coverage Start Date Coverage End Date [facility] [address] [address] [place], [place] [id number] LUCY WALSH Self - patient is the insured MEDICAID OF [facility] [address] [place] [address] [id number] LUCY WALSH Self - patient is the insured Medical (General) History Medical History History ICD Code hypothyroidism attention deficit disorder bipolar disorder PTSD vitamin D deficiency carpal tunnel syndrome menorrhagia
--- OUTSIDE RECORDS SUMMARY | 2025-03-04 16:37 | XMS_ITS ---
Author Organization [facility] Address [address] [place] [address] Care Team Providers Care Ice Hockey Coach Name Role Phone America HYATT, Elke Primary Care Provider Vishal Salinas Jr REASON FOR VISIT IBS Encounters Encounter Location Date Provider Diagnosis [facility] [address] [facility] [address] [place] [phone] 05/13/2024 Vishal Hutchinson Jr Plan Of Treatment No Information Progress Notes * LUCY WALSHDOB:1980 (44 yo F)Acc No.[id number]:05/13/2024 Progress Notes Patient:?LUCY WALSH Provider:?Vishal Hutchinson MD :1980???Age:43 Y???Sex:Female D ate:05/13/2024 Address:[address] [place] [address] [address] [id number] Pcp:Elke Cross MD Subjective: * Chief Complaints: [...] MD Date:?0 05/13/2024 Generated for Aravind ventura/Nisha/eTransmitting on:?03/04/2025 04:37 PM EDT
--- OUTSIDE RECORDS SUMMARY | 2025-03-04 16:37 | XMS_ITS | Clinical Summary ---
Author Organization [facility] Address [address] [place] [address] Care Team Providers Care Geriatric Personal Care Aide Name Role Phone Unavailable Primary Care Provider [...] Description 03/20/2025 1:30 PM EDT Office Visit [facility] [address] [place] [phone] Namrata Dixon MD [address] [place] [phone] Health Maintenance Due Date Last Done Comments [...] Smear 2002 Breast Cancer Screening (Mammogram) 2021 [id number] (2023- season) 2024 Imm-Influenza (#1) 2024 Alcohol and Drug Screen 11/20/2024 Depression Annual Screen 11/20/2024 Cervical Ablation/Cold-Knife Conization Discontinued Cervical Cryotherapy Discontinued Colposcopy Discontinued Endometrial Biopsy Discontinued Excision/Leep Discontinued HPV Genotyping Discontinued Vaginal Pap Discontinued Vulvoscopy Discontinued Insurance adRise PLAN Member Subscriber Plan / Payer (Ef fective 2024-Present) Name:LynchJaz Relation to Subscriber:Self Name:Jaz Lynch Payer ID:[id number] Group ID:Not on file Type:Medicaid Address: [facility] [address] [place] [address]
--- OUTSIDE RECORDS SUMMARY | 2025-03-04 16:37 | XMS_ITS ---
Author Organization [facility] Address [address] [place] [address] Care Team Providers Care Hospitalist Program Director Name Role Phone America HYATT, Elke Primary Care Provider Vishal Salinas Jr REASON FOR VISIT Patient presents today for IBS Encounters Encounter Location Date Provider Diagnosis [facility] [address] [facility] [address] [place] [phone] 09/12/2024 Vishal Hutchinson Jr Plan Of Treatment No Information Progress Notes * LUCY WALSHDOB:1980 (44 yo F)Acc No.[id number]:09/12/2024 Progress Notes Patient:?LUCY WALSH Provider:?Vishal Hutchinson MD :1980???Age:44 Y???Sex:Female D ate:09/12/2024 Address:[address] [place] [address] [address] [id number] Pcp:Elke Cross MD Subjective: * Chief Complaints: [...] Hutchinson MD Date:?1 Generated for Modestai lorenzo/Faeverardog/eTransmitting on:?03/04/2025 04:36 PM EDT
--- OUTSIDE RECORDS SUMMARY | 2025-03-04 16:37 | XMS_ITS | Clinical Summary ---
Author Organization [facility] Address [address] [place] [address] Care Team Providers Care Vb Net Programmer Name Role Phone Unavailable Primary Care Provider Unavailabl e Encounters Date Type Department Care Team Description 12/25/2024 Telephone [facility] [address] [place] [phone] Naomi Vegas MD from Last 3 Months [...]
--- OUTSIDE RECORDS SUMMARY | 2025-03-04 16:37 | XMS_ITS | Encounter Summary ---
Author Organization [facility] r Address [address] [facility] [place] [address] Phone Care Team Providers Care Communications Writer Name Role Phone Elke Cross MD Unavailable [phone] Encounter Details Date Type Department Care Team (Late st Contact Info) Description 02/21/2025 Telephone [facility] [address] [place] [address] Jannette Wolfe NP [address] [place] [address] Social History Tobacco Use Types Packs/Day Years [...] on filedocumented in this encounter Care Teams Communications Writer Relationship Specialty Start Date End Date Elke Cross MD [address] [place] [address] PCP - Insurance 02/06/25 documented as of this encounter
--- OUTSIDE RECORDS SUMMARY | 2025-03-04 16:37 | XMS_ITS ---
Author Organization [facility] Address [address] [address] Care Team Providers Care Production Planner Scheduler Name Role Phone GABRIELA NOLAN Primary Care Provider GABRIELA NOLAN Unavailable Unavailable REASON FOR VISIT e/no ref req c0 Encounters Encounter Location Date Provider Diagnosis [facility] [employer] [facility] [address] [address] 05/29/2024 GABRIELA NOLAN Plan Of Treatment No Information Progress Notes * Jaz LYNCH LDOB: 1 (44 yo F)Acc No.[id number]:05/29/2024 Patient:?Jaz LYNCH Provider:?Gabriela Nolan MD :1980???Age:44 Y???Sex:Female D ate:05/29/2024 Address:[address] [place], [place] [id number] Subjective: * Chief Complaints: * ???1. E/no ref req c0. * Medical History:? Objective: * Vitals:? Assessment: Plan: * Treatment: * Images: * Electronic signature of GABRIELA NOLAN M.D. on 03/04/2025 at 04:37 PM EDT Sign off status: Pending * Provider:?Gabriela Nolan MD Date:? Generated for Aravind ventura/Nisha/eTransmitting on:?03/04/2025 04:37 PM EDT
--- OUTSIDE RECORDS SUMMARY | 2025-03-04 16:37 | XMS_ITS | Clinical Summary ---
Author Organization [facility] Address [address] [place] [address] Phone Care Team Providers Care Central Supply Manager Name Role Phone Elke Cross MD Unavailable [phone] Encounters Date Type Department Care Team Description 02/21/2025 Telephone [facility] [address] [place] [phone] Jannette Wolfe NP from Last 3 Months [...] on patient's age to complete this topic MENINGOCOCCAL B Aged Out No longer el igible based on patient's age to complete this topic Pneumonia Vaccine 0-49 Years Aged Out No longer eligible based on patient's age to complete this topic ROTAVIRUS VACCINES Aged Out No longer eligible based on patient's age to complete this topic Care Teams Central Supply Manager Relationship Specialty Start Date End Date Elke Cross MD [address] [place] [address] PCP - Insurance 02/06/25
--- OUTSIDE RECORDS SUMMARY | 2025-03-04 16:37 | XMS_ITS ---
Author Organization [facility] Address [address] [address] Care Team Providers Care Medical Receptionist Assistant Name Role Phone GABRIELA BRIAN Primary Care Provider [phone] GABRIELA BRIAN Unavailable Unavailable REASON FOR VISIT e/no ref req c0 V Encounters Encounter Location Date Provider Diagnosis [facility] [address] [facility] [address] [place] [address] 05/29/2024 GABRIELA BRIAN Plan Of Treatment No Information Progress Notes * Jaz WALSH LDOB: 1 (44 yo F)Acc No.[id number]:05/29/2024 Patient:?Jaz WALSH Provider:?Gabriela Brian MD :1980???Age:44 Y???Sex:Female D ate:05/29/2024 Address:[address] [place], [place] [phone] Subjective: * Chief Complaints: * ???1. e/no ref req c0 V. * Medical History:? Objective: * Vitals:? Assessment: Plan: * Treatment: * Images: * Electronic signature of GABRIELA BRIAN M.D. on 03/04/2025 at 04:36 PM EDT Sign off status: Pending * Provider:?Gabriela Brian MD Date:? Generated for Modestai ng/Faeverardog/eTransmitting on:?03/04/2025 04:36 PM EDT
--- OUTSIDE RECORDS SUMMARY | 2025-03-04 16:37 | XMS_ITS | Patient Health Record ---
Author Organization [facility] Address [address] [facility] [address] 1 [place] [address] Care Team Providers Care Rf Engineer Name Role Phone GABRIELA NOLAN Primary Care Provider GABRIELA NOLAN Unavailable Unavailable Reason For Referral No Information Encounters Encounter Location Date Provider Diagnosis [facility] [address] 1 [place] [address] 04/02/2024 [facility] [address] [facility] [address] 1 [place] [address] 05/15/2024 [facility] [address] 1 [place] [address] 05/25/2024 [facility] [address] [facility] [address] 1 [place] [address] 05/25/2024 Plan Of Treatment No Information Insurance Providers Payer Name Payer Address Payer Phone Subscriber Number Group Number Insured Name Patient Relationship to Insured Coverage Start Date Coverage End Date [place] [id number] [facility] [address] [place] [address] [phone] [id number] Jaz Lynch Self - patient is the insured
--- OUTSIDE RECORDS SUMMARY | 2025-03-04 16:37 | XMS_ITS ---
Author Organization [facility] Address [address] [place] [address] Care Team Providers Care Sludge Filtration Attendant Name Role Phone America HYATT, Elke Primary Care Provider Tati Hutchinson Jr, Vishal Suazo REASON FOR VISIT Pt no showed Encounters Encounter Location Date Provider Diagnosis [facility] [address] [place] [address] 09/12/2024 Vishal Hutchinson Jr Plan Of Treatment No Information Progress Notes * LUCY WALSHDOB:1980 (44 yo F)Acc No.[id number]:09/12/2024 Patient:?LUCY WALSH :1980???Age:44 Y???Sex:Female Address:[address] [place] [address] [address] , [place], [address] * true * Date:? Generated for Printi ng/Faeverardog/eTransmitting on:?03/04/2025 04:37 PM EDT
== END 2025-03-04 15:06 | disposition home or self-care (01) ==
LOC: HO.HBST 13:33
PROVIDERS: PCP Internal Medicine; Visit Provider Counselor Mental Health
DX: F39 Unspecified mood [affective] disorder (principal); F41.1 Generalized anxiety disorder
CPT/HCPCS: 90837

== ENCOUNTER → 2025-03-04 13:33 | Outpatient (BNVA) | payer OTHER, SELFPAY | PROVIDERS: PCP Internal Medicine; Visit Provider Counselor Mental Health ==

== ENCOUNTER 2025-03-18 13:13 | Outpatient (AMB) | payer OTHER, SELFPAY ==
--- NOTE | 2025-03-18 13:00 | A.OFFWM_ITS ---
Intake Intake Visit Reasons: VIDEO PO LSG 02/06/22 Allergies cat dander [CAT DANDER] Allergy (Mild, Verified 01/02/25 12:56) EYES- TEAR, ITCHY, face swells dog dander [DOG DANDER] Allergy (Mild, Verified 01/02/25 12:56) EYES- TEAR, ITCHY, hives duloxetine [From CYMBALTA] Adverse Reaction (Intermediate, Verified 01/02/25 12:56) VAGINAL BLEEDING PFSH Medical History Bilateral knee pain Sacroiliac pain Positive DANIELE (antinuclear antibody) Refused influenza vaccine PTSD (post-traumatic stress disorder) Insomnia PONV (postoperative nausea and vomiting) Gastric ulcer Cholelithiasis Sacroiliitis Spondylosis of lumbar region without myelopathy or radiculopathy Scoliosis Goiter Restless leg syndrome ADHD (attention deficit hyperactivity disorder) Anxiety OCD (obsessive compulsive disorder) Hypertension GERD (gastroesophageal reflux disease) Vitamin D deficiency PCOS (polycystic ovarian syndrome) Body mass index [BMI]40.0-44.9, adult Irritable bowel syndrome with diarrhea Environmental and seasonal allergies Breast cancer screening by mammogram Dyslipidemia Gastritis Morbid obesity Hirsutism Telogen effluvium Heartburn Degenerative disc disease, lumbar Fibromyalgia Bipolar disorder Rosacea Acquired hypothyroidism Surgical History S/P laparoscopic sleeve gastrectomy Hx of bariatric surgery Hx of shoulder surgery Hx of cholecystectomy Hx of colonoscopy Miscarriage History of nasal surgery History of rotator cuff surgery Family History Father Diabetes mellitus Mother OCD (obsessive compulsive disorder) EITAN (generalized anxiety disorder) HTN (hypertension) Cancer Cervical cancer Family/Other FH: mental illness Maternal Grandmother EITAN (generalized anxiety disorder) Glaucoma Mental health disorder Maternal Grandfather Alzheimer disease Maternal Aunt Hypothyroidism Mental health disorder Paternal Grandmother Unknown family medical history Paternal Grandfather Unknown family medical history Sister Hypothyroidism Paternal Aunt Substance use disorder Maternal Uncle Substance use disorder Social History Household Members Other:: brother Housing: Apartment Are you a primary acute care registered nurse to a significant other at home: No Do you presently have visiting nurse or other home services: No Alcohol intake: never Patient Tobacco Use Status: Former Tobacco user Tobacco use type: Cigarette Cigarettes Per Day: 20 Years Smoked: 3 e-Cigarette/Vaping Use: Never Used service: No Current occupational status: disabled Cognitive needs: No Hearing needs: No Vision needs: Yes Behavioral Health Assessment Weight Management Therapy Therapy Notes Details Subjective: Patient reports ongoing frustration due to a recent flare-up in chronic pain. She states that although she is feeling emotionally low today, her overall functioning remains stable. She expressed a desire to better manage her mood in relation to pain episodes. Objective: Patient attended a follow-up behavioral health session via Telehealth. * Appeared alert, oriented, and engaged throughout the session. * Discussed current emotional state and challenges related to pain management. * Provided validation of emotional response to chronic pain and explored the connection between physical discomfort and mood. * Used cognitive-behavioral strategies to reframe negative thought patterns related to pain. * Guided patient in developing a brief action plan to support mood stability during flare-ups, including pacing, relaxation techniques, and identifying one positive activity per day. Assessment/Response: * Mental Status: Mood mildly depressed; affect congruent with reported frustration. Thought process logical and goal-directed. No cognitive impairment noted. * Risk: No risk to self or others reported or observed. Within normal limits (WNL). Patient responded well to interventions and expressed openness to applying coping strategies between sessions. Assessment & Plan Assessment & Plan (1) Unspecified mood [affective] disorder: Code(s): F39 - Unspecified mood [affective] disorder (2) Generalized anxiety disorder: Code(s): F41.1 - Generalized anxiety disorder Plan Continue bi-weekly behavioral health sessions to support mood regulation and pain coping strategies. Next Appointment: 04/01/25 at 1:30pm, Telehealth Telehealth Telehealth Telehealth Platform: [facility] Location of provider rendering services: other Location of patient: address on file Patient Identification confirmed using: Name, : Yes Telehealth method: video Patient verbally consented to treatment: Yes Patient verbally consented to billing insurance company: Yes Patient informed of any privacy concerns related to visit: Yes Minutes spent on Phone/Video with Pt.: 60 Coding Level of Care Code Established Pt Tele Psytx >53 mins (18800) Patient Type Established Diagnoses Unspecified mood [affective] disorder F39 Generalized anxiety disorder F41.1 Time Spent (min) 60
--- OUTSIDE RECORDS SUMMARY | 2025-03-18 15:16 | XMS_ITS ---
Author Organization [facility] Address [address] [address] Care Team Providers Care Second Vp Hr Assessment Name Role Phone GABRIELA NOLAN Primary Care Provider GABRIELA NOLAN Unavailable Unavailable REASON FOR VISIT e/no ref req c0 Encounters Encounter Location Date Provider Diagnosis [facility] [address] [phone] 05/29/2024 GABRIELA NOLAN Plan Of Treatment No Information Progress Notes * Jaz LYNCH LDOB: 1 (44 yo F)Acc No.[id number]:05/29/2024 Patient:?Jaz LYNCH Provider:?Gabriela Nolan MD :1980???Age:44 Y???Sex:Female D ate:05/29/2024 Address:[address] [place], [place] [phone] Subjective: * Chief Complaints: * ???1. E/no ref req c0. * Medical History:? Objective: * Vitals:? Assessment: Plan: * Treatment: * Images: * Electronic signature of GABRIELA NOLAN M.D. on 03/18/2025 at 03:16 PM EDT Sign off status: Pending * Provider:?Gabriela Nolan MD Date:? Generated for Aravind ventura/Nisha/eTransmitting on:?03/18/2025 03:16 PM EDT
--- OUTSIDE RECORDS SUMMARY | 2025-03-18 15:16 | XMS_ITS ---
Author Organization [facility] Address [address] [address] Care Team Providers Care Clay Burner Name Role Phone GABRIELA NOLAN Primary Care Provider GABRIELA NOLAN Unavailable Unavailable REASON FOR VISIT e/no ref req c0 V, e/no ref req c0 V, e/no ref req c0 V Encounters Encounter Location Date Provider Diagnosis [facility] [address] [place] [phone] 05/29/2024 GABRIELA NOLAN Plan Of Treatment No Information Progress Notes * Jaz LYNCH LDOB: 1 (44 yo F)Acc No.[id number]:05/29/2024 Patient:?Jaz LYNCH Provider:?Gabriela Nolan MD :1980???Age:44 Y???Sex:Female D ate:05/29/2024 Address:[address] [place], [place] [phone] Subjective: * Chief Complaints: * ???1. e/no [...] MD Date:? 4 Generated for Aravind ventura/Nisha/Devi on:?03/18/2025 03:16 PM EDT
--- OUTSIDE RECORDS SUMMARY | 2025-03-18 15:16 | XMS_ITS | Clinical Summary ---
Author Organization [facility] Address [address] [place] [address] Care Team Providers Care Soap Boiler Name Role Phone Unavailable Primary Care Provider [...] Description 03/20/2025 1:30 PM EDT Office Visit [facility] [address] [place] [phone] Namrata Dixon MD [address] [place] [phone] Health Maintenance Due Date Last Done Comments [...] Smear 2002 Breast Cancer Screening (Mammogram) 2021 [id number] ( season) 2024 Imm-Influenza (#1) 2024 Alcohol and Drug Screen 11/20/2024 Depression Annual Screen 11/20/2024 Cervical Ablation/Cold-Knife Conization Discontinued Cervical Cryotherapy Discontinued Colposcopy Discontinued Endometrial Biopsy Discontinued Excision/Leep Discontinued HPV Genotyping Discontinued Vaginal Pap Discontinued Vulvoscopy Discontinued Procedures Procedure Name Priority Date/Time Associated Diagnosis Comments HEALTH HISTORY SCANNED DOCUMENT 03/13/2025 3:00 AM EDT from Last 3 Months Results * HEALTH HISTORY SCANNED DOCUMENT (03/13/2025 3:00 AM EDT) 03/13/2025 3:00 AM EDT Namrata Dixon MD SCAN OTHER ORDERS Final Res ult from Last 3 Months Insurance [employer] [facility] [employer] Member Subscriber Plan / Payer (Ef fective 2024-Present) Name:Jaz Lynch Relation to Subscriber:Self Name:Jaz Lynch Payer ID:[id number] Group ID:Not on file Type:Medicaid Address: [facility] [address] [place] [address]
--- OUTSIDE RECORDS SUMMARY | 2025-03-18 15:16 | XMS_ITS | Referral Summary ---
Author Organization [facility] Address [address] [place] [address] Phone Care Team Providers Care Mobile Sales Assistant Name Role Phone Elke Cross MD Unavailable [phone] Encounters Date Type Department Care Team Description 02/21/[address] [phone] Jannette Wolfe NP from Last 3 Months [...] of Treatment Not on file Care Teams Mobile Sales Assistant Relationship Specialty Start Date End Date Elke Cross MD [address] [place] [address] PCP - Insurance 02/06/25
--- OUTSIDE RECORDS SUMMARY | 2025-03-18 15:16 | XMS_ITS | Encounter Summary ---
Author Organization [facility] Address [address] [place] [address] Phone Care Team Providers Care Autocad Draftsman Name Role Phone Elke Cross MD Unavailable [phone] Encounter Details Date Type Department Care Team (Late st Contact Info) Description 02/21/2025 Telephone [facility] [address] [place] [phone] Jannette Wolfe NP [address] [place] [address] Social History Tobacco Use Types Packs/Day Years [...] on filedocumented in this encounter Care Teams Autocad Draftsman Relationship Specialty Start Date End Date Elke Cross MD [address] [place] [address] PCP - Insurance 02/06/25 documented as of this encounter
--- OUTSIDE RECORDS SUMMARY | 2025-03-18 15:16 | XMS_ITS | Patient Health Record ---
Author Organization [facility] Address [address] [facility] Floor 1 [place] [address] Care Team Providers Care Outsole Scheduler Name Role Phone GABRIELA NOLAN Primary Care Provider [phone] GABRIELA NOLAN Unavailable Unavailable Reason For Referral No Information Encounters Encounter Location Date Provider Diagnosis [facility] [address] 1 [place] [address] 04/02/2024 [facility] [address] [facility] Floor 1 [place] [address] 05/15/2024 [facility] [address] 1 [place] [address] 05/25/2024 [facility] [address] [facility] Floor 1 [place] [address] 05/25/2024 Plan Of Treatment No Information Insurance Providers Payer Name Payer Address Payer Phone Subscriber Number Group Number Insured Name Patient Relationship to Insured Coverage Start Date Coverage End Date [place] [id number] [facility] [address] [place] [id number] Jaz Lynch Self - patient is the insured
--- OUTSIDE RECORDS SUMMARY | 2025-03-18 15:16 | XMS_ITS | Clinical Summary ---
Author Organization [facility] Address [address] [place] [address] Care Team Providers Care Commercial Floor Covering Installer Name Role Phone Unavailable Primary Care Provider Unavailabl e Encounters Date Type Department Care Team Description 12/25/2024 Telephone [facility] [address] [place] [phone] Naomi Vegas MD from Last 3 Months Social History Tobacco Use Types Packs/Day Years Used Date Smoking Tobacco: Never Assessed Comments Unknown Sex and Gender Information Value Date Recorded Sex Assigned at Not on file Legal Sex Female 1:56 PM EDT Gender Identity Not on file Sexual Orientation Not on file Plan of Treatment Health Maintenance Due Date Last Done Comments MMR Vaccines (1 of 1 - Stand beatriz series) 1982 Hepatitis C Screening 1999 Periodic Health Exam [...]
--- OUTSIDE RECORDS SUMMARY | 2025-03-18 15:17 | XMS_ITS ---
Author Organization [facility] Address [address] [address] Care Team Providers Care Assistant Commissioner Name Role Phone GABRIELA BRIAN Primary Care Provider GABRIELA BRIAN Unavailable Unavailable REASON FOR VISIT e/no ref req c0 V Encounters Encounter Location Date Provider Diagnosis [facility] [address] [facility] 1 [place] [address] 05/29/2024 GABRIELA BRIAN Plan Of Treatment No Information Progress Notes * Jaz WALSH LDOB: 1 (44 yo F)Acc No.[id number]:05/29/2024 Patient:?Jaz WALSH Provider:?Gabriela Brian MD :1980???Age:44 Y???Sex:Female D ate:05/29/2024 Address:[address] [place], [place] [phone] Subjective: * Chief Complaints: * ???1. e/no ref req c0 V. * Medical History:? Objective: * Vitals:? Assessment: Plan: * Treatment: * Images: * Electronic signature of GABRIELA BRIAN M.D. on 03/18/2025 at 03:17 PM EDT Sign off status: Pending * Provider:?Gabriela Brian MD Date:? Generated for Aravind ng/Faeverardog/eTransmitting on:?03/18/2025 03:17 PM EDT
--- OUTSIDE RECORDS SUMMARY | 2025-03-18 15:17 | XMS_ITS | Clinical Summary ---
Author Organization [facility] Address [address] [place] [address] Phone Care Team Providers Care Doll Wig Maker Rooted Hair Name Role Phone Elke Cross MD Unavailable [phone] Encounters Date Type Department Care Team Description 02/21/2025 Telephone [facility] [address] [place] [phone] Jannette Wolfe NP from Last 3 Months [...] age to complete this topic Care Teams Doll Wig Maker Rooted Hair Relationship Specialty Start Date End Date Elke Cross MD [address] [place] [address] PCP - Insurance 02/06/25
== END 2025-03-18 14:03 | disposition home or self-care (01) ==
LOC: HO.HBST 13:13
PROVIDERS: PCP Internal Medicine; Visit Provider Counselor Mental Health
DX: F39 Unspecified mood [affective] disorder (principal); F41.1 Generalized anxiety disorder
CPT/HCPCS: 90837

== ENCOUNTER → 2025-03-18 13:13 | Outpatient (BNVA) | payer OTHER, SELFPAY | PROVIDERS: PCP Internal Medicine; Visit Provider Counselor Mental Health ==

== ENCOUNTER 2025-04-01 13:15 | Outpatient (AMB) | payer OTHER, SELFPAY ==
--- NOTE | 2025-04-01 13:10 | A.OFFWM_ITS ---
Intake Intake Visit Reasons: VIDEO PO LSG 02/06/22 Allergies cat dander [CAT DANDER] Allergy (Mild, Verified 01/02/25 12:56) EYES- TEAR, ITCHY, face swells dog dander [DOG DANDER] Allergy (Mild, Verified 01/02/25 12:56) EYES- TEAR, ITCHY, hives duloxetine [From CYMBALTA] Adverse Reaction (Intermediate, Verified 01/02/25 12:56) VAGINAL BLEEDING PFSH Medical History Bilateral knee pain Sacroiliac pain Positive DANIELE (antinuclear antibody) Refused influenza vaccine PTSD (post-traumatic stress disorder) Insomnia PONV (postoperative nausea and vomiting) Gastric ulcer Cholelithiasis Sacroiliitis Spondylosis of lumbar region without myelopathy or radiculopathy Scoliosis Goiter Restless leg syndrome ADHD (attention deficit hyperactivity disorder) Anxiety OCD (obsessive compulsive disorder) Hypertension GERD (gastroesophageal reflux disease) Vitamin D deficiency PCOS (polycystic ovarian syndrome) Body mass index [BMI]40.0-44.9, adult Irritable bowel syndrome with diarrhea Environmental and seasonal allergies Breast cancer screening by mammogram Dyslipidemia Gastritis Morbid obesity Hirsutism Telogen effluvium Heartburn Degenerative disc disease, lumbar Fibromyalgia Bipolar disorder Rosacea Acquired hypothyroidism Surgical History S/P laparoscopic sleeve gastrectomy Hx of bariatric surgery Hx of shoulder surgery Hx of cholecystectomy Hx of colonoscopy Miscarriage History of nasal surgery History of rotator cuff surgery Family History Father Diabetes mellitus Mother OCD (obsessive compulsive disorder) EITAN (generalized anxiety disorder) HTN (hypertension) Cancer Cervical cancer Family/Other FH: mental illness Maternal Grandmother EITAN (generalized anxiety disorder) Glaucoma Mental health disorder Maternal Grandfather Alzheimer disease Maternal Aunt Hypothyroidism Mental health disorder Paternal Grandmother Unknown family medical history Paternal Grandfather Unknown family medical history Sister Hypothyroidism Paternal Aunt Substance use disorder Maternal Uncle Substance use disorder Social History Household Members Other:: brother Housing: Apartment Are you a primary specialist wound care to a significant other at home: No Do you presently have visiting nurse or other home services: No Alcohol intake: never Patient Tobacco Use Status: Former Tobacco user Tobacco use type: Cigarette Cigarettes Per Day: 20 Years Smoked: 3 e-Cigarette/Vaping Use: Never Used service: No Current occupational status: disabled Cognitive needs: No Hearing needs: No Vision needs: Yes Behavioral Health Assessment Weight Management Therapy Therapy Notes Details Subjective: The patient reports experiencing increased pain levels recently, which led her to seek care from a paint laboratory technician. She expresses feelings of frustration and a loss of confidence, particularly during periods of heightened pain that limit her ability to remain physically active. Additionally, the patient shares that she has been assisting her brother in becoming more independent, which has been a focus in her daily life. Objective: PT presents for a f/up visit via Telehealth. Discussed functioning, challenges and feelings. -CBT-based techniques were used to help the patient explore and reframe negative automatic thoughts related to pain and perceived limitations (e.g., ?I can?t do anything when I?m in pain? ? ?I can still engage in small, meaningful actions even on difficult days?). Cognitive restructuring was used to address self- defeating thought patterns contributing to frustration and reduced confidence. - Psychoeducation was provided on the pa ae-tyvmuqp-pevielxm cycle to normalize the emotional impact of chronic pain and highlight the importance of self- compassion. Behavioral activation strategies were reviewed to support continued engagement in valued activities within her current physical capacity. -The patient was also encouraged to iden tify personal strengths and accomplishments related to her caregiving role, reinforcing a sense of purpose and competence. Assessment/Response: * Mental status: sad and down, mild-mod functioning issues due to pain. * Risk reported/identified: none. Assessment & Plan Assessment & Plan (1) Unspecified mood [affective] disorder: Code(s): F39 - Unspecified mood [affective] disorder (2) Generalized anxiety disorder: Code(s): F41.1 - Generalized anxiety disorder Plan Continue bi-weekly behavioral health sessions to support mood regulation and pain coping strategies. Next Appointment: 04/15/25 at 1:30pm, Telehealth Telehealth Telehealth Telehealth Platform: [facility] Location of provider rendering services: other Location of patient: address on file Patient Identification confirmed using: Name, : Yes Telehealth method: video Patient verbally consented to treatment: Yes Patient verbally consented to billing insurance company: Yes Patient informed of any privacy concerns related to visit: Yes Minutes spent on Phone/Video with Pt.: 55 Coding Level of Care Code Established Pt Tele Psytx >53 mins (50535) Patient Type Established Diagnoses Unspecified mood [affective] disorder F39 Generalized anxiety disorder F41.1 Time Spent (min) 55
--- OUTSIDE RECORDS SUMMARY | 2025-04-01 14:20 | XMS_ITS | Clinical Summary ---
Author Organization [facility] Address [address] [place] [address] Care Team Providers Care Corporate Meeting Planner Name Role Phone Namrata Dixon MD Primary Care Provider [phone] Source Comments PLEASE NOTE, if this patient is a minor, it may be UNLAWFUL to discuss sensitive information that is contained in these records (such as FAMILY PLANNING, MENTAL HEALTH or SUBSTANCE ABUSE) with the minor patient's parent or other person without the patient's specific authorization.[facility] Allergies Active Allergy Reactions Criticality Noted Date Comments Cats 07/30/2020 Duloxetine 03/20/2025 Vaginal bleeding Grass Pollen-Red Top, Standard 07/30 Seasonal Allergies 07/30/2020 Medications spironolactone (ALDACTONE) 100 mg tablet Take 100 mg by mouth every morning 5 Active OZEMPIC 0.25 mg or 0.5 mg (2 mg/3 mL) pen injector Inject 0.5 mg into the skin once a week 5 Active DAILY-CHAUNCEY, WITH FOLIC ACID, 400 mcg tab Take 1 Tablet by mouth once daily 5 Active metFORMIN (GLUCOPHAGE) 500 mg tablet Take 500 mg by mouth 2 (two) times daily with a meal 5 Active medroxyPROGESTE Steven (PROVERA) 10 mg tablet See Admin Instructions 5 Active levothyroxine 50 mcg tablet Take 50 mcg by mouth once daily 5 Active VIIBRYD 10 mg tab Take 1 Tablet by mouth once daily 5 Active pregabalin (LYRICA) 25 mg capsule TAKE ONE TALBET (25 MG) ORALLY 2 TIMES A DAY 5 Active ivermectin 1 % crea APPLY TO FACE EVERY DAY 5 Active acetaminophen (TYLENOL 8 HOUR) 650 mg CR tablet Take 650 mg by mouth every 12 (twelve) hours 5 Active benzoyl peroxide (BENZAC AC) 10 % APPLY TO FACE THEN RINSE TWICE A DAY 5 Active busPIRone (BUSPAR) 5 mg tablet Take 5 mg by mouth 3 (three) times daily 5 Active cetirizine (ZYRTEC) 10 mg tablet Take 10 mg by mouth once daily as needed 5 Active clindamycin phosphate (CLINDAGEL) 1 % gel APPLY TO ENTIRE FACE TWICE A DAY AFTER BENZOYL PEROXIDE CLEANSER 5 Active ADDERALL XR 25 mg 24 hr capsule TAKE 2 CAPSULES BY MOUTH EVERY DAY IN THE MORNING 5 Active clonazePAM (KLONOPIN) 0.5 mg tablet TAKE 1 TABLET BY MOUTH ONCE A DAY NEEDED FOR PANIC ATTACK. UP TO 8 TIMES PER MONTH. 5 Active VRAYLAR 3 mg cap Take 1 Capsule by mouth once daily 5 Active calcium carbonate-vitam in D3 250 mg-3.125 mcg (125 unit) tab Take 1 Tablet by mouth 2 (two) times daily 4 Active alclometasone (ACLOVATE) 0.05 % cream APPLY TO HANDS TWICE A DAY NEEDED FOR FLARES. DECREASE SYMPTOMS IMPROVE 4 Active Active Problems Problem Noted Date Diagnosed Date Scoliosis 03/25/2025 Assessment & Plan (03/25/2025 2:21 PM EDT): Patient had tremendous benefit working with her prior pain clinic which was providing cortisone injections, and she was also following closely with Rheum who was prescribing Lyrica. Working on getting newly established with both pain clinic and Rheum here in the [place] area. Referrals placed. Obesity without serious comorbidity 03/25/2025 Assessment & Plan (03/25/2025 2:21 PM EDT): Current BMI 32. Patient hoping to reestablish with a weight clinic here in the [facility]. She underwent bariatric surgery several years ago outside of [place], and continues on a multivitamin and Ca/Vit D supplement. Was previously checking in with her bariatrics clinic roughly every 6 months. New referral placed. Hypothyroidism 03/25/2025 Assessment & Plan (03/25/2025 2:21 PM EDT): Patient has been well controlled on levothyroxine 50mcg daily. Recent TSH monitoring already performed. Will continue with current dose and plan to monitor TSH yearly given that dose has been stable for some time. Fibromyalgia 03/25/2025 Assessment & Plan (03/25/2025 2:21 PM EDT): Patient was previously following with Rheumatology and prescribed Lyrica - was also following closely with pain management and receiving cortisone injections which were immensely helpful. She is hoping to newly reestablish with Rheum and a pain clinic here in the [facility]. Referrals placed. Sacroiliac joint dysfunction 03/25/2025 Assessment & Plan (03/25/2025 2:21 PM EDT): Patient had tremendous benefit working with her prior pain clinic which was providing cortisone injections. She is hoping to newly establish with a pain clinic here in the [facility] where she can continue these treatments. Reviewed the importance of getting outside records and CD with any prior imaging in preparation for new appointments. PCOS (polycystic ovarian syndrome) 03/25/2025 Assessment & Plan (03/25/2025 2:21 PM EDT): Patient reports a history of PCOS for which she is on Metformin 500mg BID. Continues to have very irregular periods. Was previously following with OBGYN in [place], all paps have been reportedly normal with last in 10/2024. Hair loss 03/25/2025 Assessment & Plan (03/25/2025 2:21 PM EDT): Hoping to reestablish with Derm here for chronic hair thinning/loss - no discrete patches of hair loss. Referral placed. Eczema 03/25/2025 Assessment & Plan (03/25/2025 2:21 PM EDT): Previously managed by Dermatology, hoping to get reestablished - new referral placed. Alclometasone 0.05% cream BID to hands for flares is what has been used in the past (included on med list). Encounters Date Type Department Care Team Description 03/20/2025 1:30 PM EDT Office Visit [facility] Medicine [address] [place] [address] Namrata Dixon MD Scoliosis, unspecified scoliosis type, unspecified spinal region (Primary Dx); Obesity without serious comorbidity, unspecified class, unspecified obesity type; Hypothyroidism, unspecified type; Fibromyalgia; Sacroiliac joint dysfunction; PCOS (polycystic ovarian syndrome); Hair loss; Eczema, unspecified type 03/20/2025 Travel from Last 3 Months Family History Medical History Relation Name Comments Diabetes Father Hypertension Father Stomach Cancer Maternal Aunt Colon Cancer Maternal Grandfather Alzheimer's Disease Maternal Grandmother Cancer Mother ?uterine vs cer vical Diabetes Mother Hypertension Mother Heart attack Neg Stroke Neg Relation Name Status Comments Father Maternal Aunt Maternal Grandfather Maternal Grandmother Alive Mother Paternal Grandfather Paternal Grandmother Social History Tobacco Use Types Packs/Day Years Used Date Smoking Tobacco: Former Cigarettes 0.5 2 Q uit: 2004 Smokeless Tobacco: Never Tobacco Cessation:Counseling Given: Not Answered Alcohol Use Standard Drinks/Week Comments Not Currently 0 (1 standard drink = 0.6 oz pur e alcohol) Social Connections Answer Date Recorded Connectedness 0 08/05/2024 Financial Resource Strain Answer Date R ecorded Financial Resource Strain 0 2023 Stress Answer Date Recorded Stress 0 06/24/2024 Physical Activity Answer Date Recorded Physical Activity 0 06/24/2024 Food Insecurity Answer Date Recorded Food 2 03/20/2025 Transportation Needs Answer Date Record ed Transportation 2 03/20/2025 Housing Stability Answer Date Recorded Housing 2 03/20/2025 Safety and Environment Answer Date Nabil rded Safety 1 03/20/2025 Utilities Answer Date Recorded Utilities 1 03/20/2025 Employment Answer Date Recorded Stress 0 08/05/2024 Comments No Sex and Gender Information Value Date Recorded Sex Assigned at Female 02/06/2025 11:39 AM PDT Legal Sex Female 7:26 AM PST Gender Identity Female 02/06/2025 11:39 AM PDT Sexual Orientation Straight 02/06/2025 11 :41 AM PDT Last Filed Vital Signs Vital Sign Reading Time Taken Comments Blood Pressure 104/75 03/20/2025 1:11 PM EDT Pulse 88 03/20/2025 1:11 PM EDT Temperature 37.1 ??C (98.7 ??F) 03/20/2025 1:11 PM ED T Respiratory Rate - - Oxygen Saturation 97% 03/20/2025 1:11 PM EDT Inhaled Oxygen Concentration - - Weight 83.5 kg (184 lb) 03/20/2025 1:11 PM EDT Height 160 cm (5' 3 ) 03/20/2025 1:11 PM EDT Body Mass Index 32.59 03/20/2025 1:11 PM EDT Plan of Treatment Health Maintenance Due Date Last Done Comments Anxiety Screening 1981 Diabetes Screening 1981 HPV Screening 1981 Hepatitis C Screening 1981 Lipid Screening 1981 TSH Monitoring 1981 HIV Screening 1996 Imm-DTaP/Tdap/Td (1 - Tdap) 2000 Imm-Hepatitis B (1 of 3 - 19+ 3-dose series) 0 Breast Cancer Screening (Mammogram) 2021 [id number]-22 () 07/21/2024 Imm-Influenza (#1) 2024 Alcohol and Drug Screen 11/20/2024 Depression Monitoring 06/20/2025 03/20/2025 Cervical Cancer Screening 11/15/2025 Pap + HPV 11/15/2025 Hypertension Screening (#1) 03/20/2026 Relationship Safety Screening/Counseling 03/20/2026 03/20/2025 Tobacco Screening 03/20/2026 03/20/2025 Pap Smear 11/15/2027 11/15/2024 Cervical Ablation/Cold-Knife Conization Discontinued Cervical Cryotherapy Discontinued Colposcopy Discontinued Endometrial Biopsy Discontinued Excision/Leep Discontinued HPV Genotyping Discontinued Vaginal Pap Discontinued Vulvoscopy Discontinued Procedures Procedure Name Priority Date/Time Associated Diagnosis Comments HEALTH HISTORY SCANNED DOCUMENT 03/13/2025 3:00 AM EDT PAP SMEAR Routine 11/15/2024 12:00 AM EST from Last 3 Months or Most Recently Relevant to Health Maintenance Results * HEALTH HISTORY SCANNED DOCUMENT (03/13/2025 3:00 AM EDT) 03/13/2025 3:00 AM EDT Namrata Dixon MD SCAN OTHER ORDERS Final Res ult * PAP SMEAR (11/15/2024 12:00 AM EST) Swab Provider [facility] - NO BLOOD DRAW Final Result from Last 3 Months or Most Recently Relevant to Health Maintenance Insurance [facility] PL[facility] Member Subscriber Plan / Payer (Ef fective 2024-Present) Name:Jaz Lynch Relation to Subscriber:Self Name:Jaz Lynch Payer ID:[id number] Group ID:Not on file Type:Medicaid Address: [facility] [address] [place] [address] Care Teams Corporate Meeting Planner Relationship Specialty Start Date End Date Namrata Dixon MD [address] [place] [phone] PCP - General Internal Medicine 03/20/25
--- OUTSIDE RECORDS SUMMARY | 2025-04-01 14:20 | XMS_ITS | Clinical Summary ---
Author Organization [facility] Address [address] [place] [address] Care Team Providers Care Bit Welder Name Role Phone Unavailable Primary Care Provider [...] PAP Screening 2011 Breast Cancer Screening 2021 CoVid-19 Vaccine ( - 2023-2 5 season) 2024 Influenza (Seasonal) 06/20/2025 HIB Vaccines Aged Out No longer eligi [...] patient's age to complete this topic Insurance [facility] [employer]
--- OUTSIDE RECORDS SUMMARY | 2025-04-01 14:20 | XMS_ITS | Clinical Summary ---
Author Organization [facility] Address [address] [facility] [address] [place] [address] Care Team Providers Care Jackerman Name Role Phone Namrata Dixon MD Primary Care Provider [phone] Medications cetirizine (ZyrTEC) 10 mg tablet Take 10 mg by mouth once daily. 0 Active Ozempic 0.25 mg or 0.5 mg (2 mg/3 mL) pen-injector Inject 0.5 mg under the skin 1 (one) time per week. 5 Active metFORMIN (Glucophage) 500 mg tablet Take 500 mg by mouth. 5 Active levothyroxine (Synthroid, Levoxyl) 50 mcg tablet Take 50 mcg by mouth in the morning. 5 Active fluticasone (Flonase) 50 mcg/actuation nasal spray Administer 2 sprays into each nostril twice daily. 0 Active Social History Tobacco Use Types Packs/Day Years Used Date Smoking Tobacco: Never Assessed Comments Unknown Sex and Gender Information Value Date Recorded Sex Assigned at Not on file Legal Sex Female 1:16 PM EDT Gender Identity Not on file Sexual Orientation Not on file Plan of Treatment Upcoming Encounters Date Type Department Care Team (Late st Contact Info) Description 04/02/2025 11:00 AM EDT Office Visit [facility] Rheumatology [address] [facility] [address] [place] [address] Jasper Nava MD [address] [facility] [address] [place], [place] [phone] 04/03/2025 1:20 PM EDT Office Visit [facility] Dermatology [place] [address] [place] [phone] Jeni Pearce MD [address] [facility] [address] [place] [address] 04/08/2025 10:30 AM EDT Office Visit [facility] Pain [address] [place] [phone] Dale Alvarez MD [address] [place] [phone] 08/05/2025 1:00 PM EDT Clinical Support [facility] [address] [facility] [address] [place] [address] Margie Garcia, TOW TRUCK DISPATCHER [address] [facility] [address] Dept[address] [facility] [place] [address] 08/13/2025 11:30 AM EDT Office Visit [facility] [address] [facility] [address] [place] [address] Kati Murphy, BRANDON [address] [place] [address] Health Maintenance Due Date Last Done Comments HIV Screening 1981 Lipid Panel 1981 MMR Vaccines (1 of 1 - Stand beatriz series) 1982 Varicella Vaccines (1 of 2 - 13+ 2-dose series) 1994 Diabetes Screening 1999 Hepatitis C Screening 1999 DTaP/Tdap/Td Vaccines (1 - Tdap) 2000 Hepatitis B Vaccines (1 of 3 - 19+ 3-dose series) 2000 Pap Smear 2002 Cervical Cancer Screening 2011 HPV/Cotest 2011 Mammogram 2021 COVID-19 Vaccine (1 - 2023-2 5 season) 2024 Depression Screening 11/20/2024 Influenza Vaccine (Season Ended) 2025 HIB Vaccines Aged Out No longer eligi ble based on patient's age to complete this topic HPV Vaccines Aged Out No longer eligi ble based on patient's age to complete this topic Hepatitis A Vaccines Aged Out No long er eligible based on patient's age to complete this topic IPV Vaccines Aged Out No longer eligi ble based on patient's age to complete this topic Meningococcal B Vaccine Aged Out No l onger eligible based on patient's age to complete this topic Meningococcal Vaccine Aged Out No anh sravanthi eligible based on patient's age to complete this topic Pneumococcal Vaccine: Pediat rics (0 to 5 Years) and At-Risk Patients (6 to 49 Years) Aged Out No longer eligible b ased on patient's age to complete this topic Rotavirus Vaccines Aged Out No longer eligible based on patient's age to complete this topic Insurance [employer] Care Teams Jackerman Relationship Specialty Start Date End Date Namrata Dixon MD [address] [place] [address] PCP - General Civil Cad Designer 03/24/25
--- OUTSIDE RECORDS SUMMARY | 2025-04-01 14:20 | XMS_ITS ---
Author Organization [facility] Address [address] [address] Care Team Providers Care Pan Pusher Name Role Phone GABRIELA NOLAN Primary Care Provider [phone] GABRIELA NOLAN Unavailable Unavailable REASON FOR VISIT e/no ref req c0 Encounters Encounter Location Date Provider Diagnosis [facility] [employer] [facility] [address] [address] 05/29/2024 GABRIELA NOLAN Plan Of Treatment No Information Progress Notes * Jaz LYNCH LDOB: 1 (44 yo F)Acc No.[id number]:05/29/2024 Patient:?Jaz LYNCH Provider:?Gabriela Nolan MD :1980???Age:44 Y???Sex:Female D ate:05/29/2024 Address:[address] [place], [place] [id number] Subjective: * Chief Complaints: * ???1. E/no ref req c0. * Medical History:? Objective: * Vitals:? Assessment: Plan: * Treatment: * Images: * Electronic signature of GABRIELA NOLAN M.D. on 04/01/2025 at 02:20 PM EDT Sign off status: Pending * Provider:?Gabriela Nolan MD Date:? Generated for Aravind ventura/Nisha/eTransmitting on:?04/01/2025 02:20 PM EDT
--- OUTSIDE RECORDS SUMMARY | 2025-04-01 14:20 | XMS_ITS ---
Author Organization [facility] Address [address] [place] [address] Care Team Providers Care Chaser Apprentice Name Role Phone America HYATT, Elke Primary Care Provider Vishal Salinas Jr [phone] REASON FOR VISIT Patient presents today for IBS Encounters Encounter Location Date Provider Diagnosis [facility] [address] [facility] [address] [place] [phone] 09/12/2024 Vishal Hutchinson Jr Plan Of Treatment No Information Progress Notes * LUCY WALSHDOB:1980 (44 yo F)Acc No.[id number]:09/12/2024 Progress Notes Patient:?LUCY WALSH Provider:?Vishal Hutchinson MD :1980???Age:44 Y???Sex:Female D ate:09/12/2024 Address:[address] [place] [address] [address] [facility] Pcp:Elke Cross MD Subjective: * Chief Complaints: [...] Hutchinson MD Date:?1 Generated for Modestai ng/Faxing/eTransmitting on:?04/01/2025 02:20 PM EDT
--- OUTSIDE RECORDS SUMMARY | 2025-04-01 14:20 | XMS_ITS | Referral Summary ---
Author Organization [facility] Address [address] [place] [address] Phone Care Team Providers Care Section Crews Activities Clerk Name Role Phone Elke Cross MD Unavailable [phone] Encounters Date Type Department Care Team Description 02/21/[address] [phone] Jannette Wolfe NP from Last 3 Months [...] of Treatment Not on file Care Teams Section Crews Activities Clerk Relationship Specialty Start Date End Date Elke Cross MD [address] [place] [address] PCP - Insurance 02/06/25
--- OUTSIDE RECORDS SUMMARY | 2025-04-01 14:20 | XMS_ITS | Patient Health Record ---
Author Organization [facility] Address [address] [place] [address] Care Team Providers Care Core Cutter Name Role Phone GABRIELA NOLAN Primary Care Provider GABRIELA NOLAN Unavailable Unavailable Reason For Referral No Information Encounters Encounter Location Date Provider Diagnosis [facility] [address] 1 [place] [address] 04/02/2024 [facility] [address] 1 [place] [address] 05/15/2024 [facility] [address] Floor 1 [place] [address] 05/25/2024 [facility] [address] 1 [place] [address] 05/25/2024 Plan Of Treatment No Information Insurance Providers Payer Name Payer Address Payer Phone Subscriber Number Group Number Insured Name Patient Relationship to Insured Coverage Start Date Coverage End Date [place] [id number] [facility] [address] [place] [id number] Jaz Lynch Self - patient is the insured
--- OUTSIDE RECORDS SUMMARY | 2025-04-01 14:20 | XMS_ITS | Patient Health Record ---
Author Organization [facility] Address [address] [place] [address] Care Team Providers Care Well Flow Operator Name Role Phone America HYATT, Elke [...] Problem Status W/U Status Risk Notes Problem [id number] Dysphagia (R13.10) Active confirmed Problem [id number] Abnormal upper gastrointestinal barium series (R93.3) Active confirmed Encounters Encounter Location Date Provider Diagnosis [facility] [address] [place] [address] 09/12/2024 Vishal Hutchinson Jr Plan Of Treatment Future Test Test Name Order Date UPPER GI ENDOSCOPY 02/22/2017 Insurance Providers Payer Name Payer Address Payer Phone Subscriber Number Group Number Insured Name Patient Relationship to Insured Coverage Start Date Coverage End Date [facility] [address] [address] [place], [place] [id number] LUCY WALSH Self - patient is the insured [facility]ICA[facility] [address] [place] [address] [id number] LUCY WALSH Self - patient is the insured Medical (General) History Medical History History ICD Code hypothyroidism attention deficit disorder bipolar disorder PTSD vitamin D deficiency carpal tunnel syndrome menorrhagia
--- OUTSIDE RECORDS SUMMARY | 2025-04-01 14:20 | XMS_ITS ---
Author Organization [facility] Address [address] [address] Care Team Providers Care Supervisor Gate Services Name Role Phone GABRIELA NOLAN Primary Care Provider GABRIELA NOLAN Unavailable Unavailable REASON FOR VISIT e/no ref req c0 V, e/no ref req c0 V, e/no ref req c0 V Encounters Encounter Location Date Provider Diagnosis [facility] [address] [place] [phone] 05/29/2024 GABRIELA NOLAN Plan Of Treatment No Information Progress Notes * Jaz LYNCH LDOB: 1 (44 yo F)Acc No.[id number]:05/29/2024 Patient:?Jaz LYNCH Provider:?Gabriela Nolan MD :1980???Age:44 Y???Sex:Female D ate:05/29/2024 Address:[address] [place], [place] [phone] Subjective: * Chief Complaints: * ???1. e/no [...] * Images: * Electronic signature of GABRIELA NLOAN M.D. on 04/01/2025 at 02:19 PM EDT Sign off status: Pending * Provider:?Gabriela Nolan MD Date:? 4 Generated for Aravind ventura/Nisha/Devi on:?04/01/2025 02:19 PM EDT
--- OUTSIDE RECORDS SUMMARY | 2025-04-01 14:20 | XMS_ITS ---
Author Organization [facility] Address [address] [address] Care Team Providers Care Head Of Mobile Name Role Phone GABRIELA NOLAN Primary Care Provider GABRIELA NOLAN Unavailable Unavailable REASON FOR VISIT e/no ref req c0 V Encounters Encounter Location Date Provider Diagnosis [facility] [address] [facility] [address] [place] [address] 05/29/2024 GABRIELA NOLAN Plan Of Treatment No Information Progress Notes * Jaz LYNCH LDOB: 1 (44 yo F)Acc No.[id number]:05/29/2024 Patient:?Jaz LYNCH Provider:?Gabriela Nolan MD :1980???Age:44 Y???Sex:Female D ate:05/29/2024 Address:[address] [place], [place] [phone] Subjective: * Chief Complaints: * ???1. e/no ref req c0 V. * Medical History:? Objective: * Vitals:? Assessment: Plan: * Treatment: * Images: * Electronic signature of GABRIELA NOLAN M.D. on 04/01/2025 at 02:20 PM EDT Sign off status: Pending * Provider:?Gabriela Nolan MD Date:? Generated for Aravind ventura/Nisha/eTransmitting on:?04/01/2025 02:20 PM EDT
--- OUTSIDE RECORDS SUMMARY | 2025-04-01 14:20 | XMS_ITS ---
Author Organization [facility] Address [address] [place] [address] Care Team Providers Care Distribution Operation Supervisor Name Role Phone America HYATT, Elke Primary Care Provider Vishal Salinas Jr REASON FOR VISIT IBS Encounters Encounter Location Date Provider Diagnosis [facility] [address] [facility] [address] [place] [phone] 05/13/2024 Vishal Hutchinson Jr Plan Of Treatment No Information Progress Notes * LUCY WALSHDOB:1980 (44 yo F)Acc No.[id number]:05/13/2024 Progress Notes Patient:?LUCY WALSH Provider:?Vishal Hutchinson MD :1980???Age:43 Y???Sex:Female D ate:05/13/2024 Address:[address] [place] [address] [address] [facility] Pcp:Elke Cross MD Subjective: * Chief Complaints: [...] MD Date:?0 05/13/2024 Generated for Aravind ventura/Nisha/eTransmitting on:?04/01/2025 02:20 PM EDT
--- OUTSIDE RECORDS SUMMARY | 2025-04-01 14:21 | XMS_ITS ---
Author Organization [facility] Address [address] [place] [address] Care Team Providers Care Turbine Technician Name Role Phone America HYATT, Elke Primary Care Provider Tati Hutchinson Jr, Vishal Suazo [phone] REASON FOR VISIT Pt no showed Encounters Encounter Location Date Provider Diagnosis [facility] [address] [place] [address] 09/12/2024 Vishal Hutchinson Jr Plan Of Treatment No Information Progress Notes * LUCY WALSHDOB:1980 (44 yo F)Acc No.[id number]:09/12/2024 Patient:?LUCY WALSH :1980???Age:44 Y???Sex:Female Address:[address] [place] [address] [address] , [place], [address] * true * Date:? Generated for Printi ng/Faeverardog/eTransmitting on:?04/01/2025 06:44 AM EDT
--- OUTSIDE RECORDS SUMMARY | 2025-04-01 14:21 | XMS_ITS | Clinical Summary ---
Author Organization [facility] r Address [address] [place] [address] Phone Care Team Providers Care Clinical Practice Consultant Name Role Phone Elke Cross MD Unavailable [phone] Encounters Date Type Department Care Team Description 02/21/2025 Telephone [facility] [address] [place] [phone] Jannette Wolfe NP from Last 3 Months [...] - 2023-2 5 season) 2024 INFLUENZA VACCINE (Season Ended) 2025 Zoster Vaccine (1 of 2) 2031 HPV [...] age to complete this topic Care Teams Clinical Practice Consultant Relationship Specialty Start Date End Date Elke Cross MD [address] [place] [address] PCP - Insurance 02/06/25
== END 2025-04-01 14:12 | disposition home or self-care (01) ==
LOC: HO.HBST 13:15
PROVIDERS: PCP Internal Medicine; Visit Provider Counselor Mental Health
DX: F39 Unspecified mood [affective] disorder (principal); F41.1 Generalized anxiety disorder
CPT/HCPCS: 90837

== ENCOUNTER → 2025-04-01 13:15 | Outpatient (BNVA) | payer OTHER, SELFPAY | PROVIDERS: PCP Internal Medicine; Visit Provider Counselor Mental Health ==

== ENCOUNTER 2025-04-04 11:00 | Outpatient (AMB) | payer OTHER, SELFPAY ==
--- NOTE | 2025-04-04 09:24 | MHC.OFFVISWM ---
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 Required: No Allergies cat dander [CAT DANDER] Allergy (Mild, Verified 01/02/25 12:56) EYES- TEAR, ITCHY, face swells dog dander [DOG DANDER] Allergy (Mild, Verified 01/02/25 12:56) EYES- TEAR, ITCHY, hives duloxetine [From CYMBALTA] Adverse Reaction (Intermediate, Verified 01/02/25 12:56) VAGINAL BLEEDING Medication List - Last Reconciled 04/04/25 by TYRONE Green acetaminophen ER (Tylenol 8 Hour) 650 mg PO Q12H albuterol sulfate 90 mcg/actuation (Ventolin HFA) 1 - 2 puffs inhalation Q4H PRN alclometasone 0.05% appl topical BID PRN back brace As directed benzoyl peroxide 10% topical calcium carbonate-vitamin D3 250 mg-3.125 mcg (125 unit) 1 tab PO BID cariprazine (Vraylar) 3 mg PO DAILY cetirizine 10 mg PO DAILY PRN clonazepam mg PO ONCE PRN dextroamphetamine-amphetamine 25 mg ER (Adderall XR) 50 mg PO ONCE diclofenac sodium 1% topical fluticasone propionate 50 mcg/actuation 2 sprays intranasal DAILY ivermectin 1% (Soolantra) 1 appl topical DAILY levothyroxine 50 mcg PO DAILY 30 days metformin 500 mg PO BID 30 days multivitamin 1 tab PO DAILY Ozempic (semaglutide) 0.5 mg (0.736 mL) subcut QWEEK 30 days NS pregabalin 25 mg PO BID spironolactone 50 mg PO DAILY walker (Ultra-Light Rollator misc) As directed, with seat HPI Comments Details: 44-year-old female returns to the office today in follow-up. She is approximately 3 year 2 month status post sleeve gastrectomy performed on 02/06/2022. She had been followed by our registered dietitian, Jazmín in the past. Weight today is 182.2 lb with a BMI of 32.9. Taking mvi and brenda + D Wants to use 1% milk now instead of almond milk. She is sometimes eating some rice. Reports constipation, last bm 3 days ago. Preop weight (02/11/2022) 205# weight at 3 MO 176# weight at 6 MO PO 173 weight weight (12/09/22) 188# Goal 165 pounds wakes at 10 am meal plan: 10 am 2 eggs w vegetables, 1/4 c fresh berries, 4 oz coffee w tsp 1/2 and 1/2 12-2pm Orgain shake, 1/2 scoop in 8 oz 1 % milk 4-6 pm another shake, 1/2 scoop in 8 oz 1 % milk 630 pm 7 forks of protein and 7 forks of vegetables Drinkin oz water 20 oz gatorade zero Exercise plan: not exercising due to fibromyalgia previously stationary bike 1-2 x per week [employer], yoga [facility] Medical History Bilateral knee pain Sacroiliac pain Positive DANIELE (antinuclear antibody) Refused influenza vaccine PTSD (post-traumatic stress disorder) Insomnia PONV (postoperative nausea and vomiting) Gastric ulcer Cholelithiasis Sacroiliitis Spondylosis of lumbar region without myelopathy or radiculopathy Scoliosis Goiter Restless leg syndrome ADHD (attention deficit hyperactivity disorder) Anxiety OCD (obsessive compulsive disorder) Hypertension GERD (gastroesophageal reflux disease) Vitamin D deficiency PCOS (polycystic ovarian syndrome) Body mass index [BMI]40.0-44.9, adult Irritable bowel syndrome with diarrhea Environmental and seasonal allergies Breast cancer screening by mammogram Dyslipidemia Gastritis Morbid obesity Hirsutism Telogen effluvium Heartburn Degenerative disc disease, lumbar Fibromyalgia Bipolar disorder Rosacea Acquired hypothyroidism Surgical History S/P laparoscopic sleeve gastrectomy Hx of bariatric surgery Hx of shoulder surgery Hx of cholecystectomy Hx of colonoscopy Miscarriage History of nasal surgery History of rotator cuff surgery Family History Father Diabetes mellitus Mother OCD (obsessive compulsive disorder) EITAN (generalized anxiety disorder) HTN (hypertension) Cancer Cervical cancer Family/Other FH: mental illness Maternal Grandmother EITAN (generalized anxiety disorder) Glaucoma Mental health disorder Maternal Grandfather Alzheimer disease Maternal Aunt Hypothyroidism Mental health disorder Paternal Grandmother Unknown family medical history Paternal Grandfather Unknown family medical history Sister Hypothyroidism Paternal Aunt Substance use disorder Maternal Uncle Substance use disorder Social History Household Members Other:: brother Housing: Apartment Are you a primary career law clerk to a significant other at home: No Do you presently have visiting nurse or other home services: No Alcohol intake: never Patient Tobacco Use Status: Former Tobacco user Tobacco use type: Cigarette Cigarettes Per Day: 20 Years Smoked: 3 e-Cigarette/Vaping Use: Never Used service: No Current occupational status: disabled Cognitive needs: No Hearing needs: No Vision needs: Yes Telehealth Telehealth Telehealth Platform: Telephone Location of provider rendering services: practice address Location of patient: address on file Patient Identification confirmed using: Name, : Yes Telehealth method: voice only Patient verbally consented to treatment: Yes Patient verbally consented to billing insurance company: Yes Patient informed of any privacy concerns related to visit: Yes Minutes spent on Phone/Video with Pt.: 15 Assessment & Plan Assessment & Plan (1) S/P laparoscopic sleeve gastrectomy: Code(s): Z98.84 - Bariatric surgery status Category: Surgical Plan: Overall, patient is doing fair. Her exercise tolerance she reports is limited due to her fibromyalgia. She has been eating rice. She also complains of constipation. She remains on Ozempic. Discussed how Ozempic can contribute to constipation. She additionally states that sometimes she would add an extra scoop if she were to skip a shake. Encouraged to follow the meal plan as directed. Encouraged to resume exercise at the [facility], utilizing the pool which will have no impact on her joints, in addition, exercise regularly using cardio equipment. Avoid rice, labs from a month ago look good. Follow-up in the office in 2 months Medications: New sennosides (senna) 17.2 mg (2 x 8.6 mg) PO BEDTIME 90 days 180 tabs 0RF constipation
[2025-04-04 09:26] VITALS: BMI 32.3
--- OUTSIDE RECORDS SUMMARY | 2025-04-04 11:35 | XMS_ITS | Referral Summary ---
Author Organization [facility] r Address [address] [place] [address] Phone Care Team Providers Care Activity Aid Name Role Phone Elke Cross MD Unavailable [phone] Encounters Date Type Department Care Team Description 02/21/[address] [phone] Jannette Wolfe NP from Last 3 Months [...] of Treatment Not on file Care Teams Activity Aid Relationship Specialty Start Date End Date Elke Cross MD [address] [place] [id number] PCP - Insurance 02/06/25
--- OUTSIDE RECORDS SUMMARY | 2025-04-04 11:35 | XMS_ITS ---
Author Organization [facility] Address [address] [place] [address] Care Team Providers Care Customer Experience Manager Name Role Phone America HYATT, Elke Primary Care Provider Vishal Salinas Jr REASON FOR VISIT IBS Encounters Encounter Location Date Provider Diagnosis [facility] [address] [facility] [address] [place] [phone] 05/13/2024 Vishal Hutchinson Jr Plan Of Treatment No Information Progress Notes * LUCY WALSHDOB:1980 (44 yo F)Acc No.[id number]:05/13/2024 Progress Notes Patient:?LUCY WALSH Provider:?Vishal Hutchinson MD :1980???Age:43 Y???Sex:Female D ate:05/13/2024 Address:[address] [place] [address] [address] [facility] Pcp:Elke Cross MD Subjective: * Chief Complaints: [...] MD Date:?0 05/13/2024 Generated for Aravind ventura/Nisha/eTransmitting on:?04/04/2025 11:35 AM EDT
--- OUTSIDE RECORDS SUMMARY | 2025-04-04 11:35 | XMS_ITS ---
Author Organization [facility] Address [address] [place] [address] Care Team Providers Care Power Brake Rebuilder Name Role Phone GABRIELA NOLAN Primary Care Provider GABRIELA NOLAN Unavailable Unavailable REASON FOR VISIT e/no ref req c0 V, e/no ref req c0 V, e/no ref req c0 V Encounters Encounter Location Date Provider Diagnosis [facility] [address] [facility] [address] 1 [place] [address] 05/29/2024 GABRIELA NOLAN Plan Of Treatment Next Appt Details Provider Name:GABRIELA NOLAN, 01:00:00 PM, [address] [address], [address] 1, [place], [address], Progress Notes * Jaz LYNCH LDOB: 1 (44 yo F)Acc No.[id number]:05/29/2024 Patient:?Jaz LYNCH Provider:?Gabriela Nolan MD :1980???Age:44 Y???Sex:Female D ate:05/29/2024 Address:[address] [place], [place] [id number] Subjective: * Chief Complaints: * ???1. e/no [...] Electronic signature of GABRIELA NOLAN M.D. on 04/04/2025 at 11:35 AM EDT Sign off status: Pending * Provider:?Gabriela Nolan MD Date:? 4 Generated for Aravind ventura/Nisha/eTransmitting on:?04/04/2025 11:35 AM EDT
--- OUTSIDE RECORDS SUMMARY | 2025-04-04 11:35 | XMS_ITS | Patient Health Record ---
Author Organization [facility] Address [address] [facility] [address] 1 [place] [address] Care Team Providers Care Nursing Support Worker Name Role Phone GABRIELA NOLAN Primary Care Provider [phone] GABRIELA NOLAN Unavailable Unavailable Reason For Referral No Information Encounters Encounter Location Date Provider Diagnosis [facility] [address] [facility] [facility] [address] 1 [place] [address] 05/15/2024 [facility] [address] [facility] [facility] [address] 1 [place] [address] 05/25/2024 [facility] [address] [address] 1 [place] [address] 05/25/2024 Plan Of Treatment Next Appt Details Provider Name:GABRIELA NOLAN, 01:00:00 PM, [address], [address], [place], [address], Insurance Providers Payer Name Payer Address Payer Phone Subscriber Number Group Number Insured Name Patient Relationship to Insured Coverage Start Date Coverage End Date [place] [id number] [facility] [address] [place] [id number] Jaz Lynch Self - patient is the insured
--- OUTSIDE RECORDS SUMMARY | 2025-04-04 11:35 | XMS_ITS ---
Author Organization [facility] Address [address] [place] [address] Care Team Providers Care Security Systems Installer Name Role Phone America HYATT, Elke Primary Care Provider Vishal Salinas Jr REASON FOR VISIT Patient presents today for IBS Encounters Encounter Location Date Provider Diagnosis [facility] [address] [facility] [address] [place] [phone] 09/12/2024 Vishal Hutchinson Jr Plan Of Treatment No Information Progress Notes * LUCY WALSHDOB:1980 (44 yo F)Acc No.[id number]:09/12/2024 Progress Notes Patient:?LUCY WALSH Provider:?Vishal Hutchinson MD :1980???Age:44 Y???Sex:Female D ate:09/12/2024 Address:[address] [place] [address] [address] [facility] Pcp:Elke Cross MD Subjective: * Chief Complaints: [...] Hutchinson MD Date:?1 Generated for Modestai ng/Faxing/eTransmitting on:?04/04/2025 11:35 AM EDT
--- OUTSIDE RECORDS SUMMARY | 2025-04-04 11:35 | XMS_ITS | Clinical Summary ---
Author Organization [facility] Address [address] [facility] [address] [address] [place] [address] Care Team Providers Care Vp Director Of Finance Name Role Phone Namrata Dixon MD Primary Care Provider [phone] Allergies Active Allergy Reactions Criticality Noted Date Comments Duloxetine 04/02/2025 Medications cetirizine (ZyrTEC) 10 mg tablet Take 10 mg by mouth once daily. 06/03/20 20 Active Ozempic 0.25 mg or 0.5 mg (2 mg/3 mL) pen-injector Inject 0.5 mg under the skin 1 (one) time per week. 03/18/20 25 Active metFORMIN (Glucophage) 500 mg tablet Take 500 mg by mouth. 03/12/20 25 Active levothyroxine (Synthroid, Levoxyl) 50 mcg tablet Take 50 mcg by mouth in the morning. 03/02/20 25 Active fluticasone (Flonase) 50 mcg/actuation nasal spray Administer 2 sprays into each nostril twice daily. 07/18/20 20 Active pregabalin (Lyrica) 25 mg capsule Take 25 mg by mouth twice daily. Active amphetamine-dex troamphetamine XR (Adderall XR) 25 mg 24 hr capsule Take 25 mg by mouth in the morning. Do not crush or chew. Active cariprazine 3 mg capsule Take 3 mg by mouth once daily. Active vilazodone (Viibryd) 20 mg tablet Take 20 mg by mouth once daily. Active acetaminophen (Tylenol) 500 mg tablet Take 650 mg by mouth if needed in the morning and at bedtime for pain score 1-3 (mild). Active meloxicam (Mobic) 15 mg tablet Take 15 mg by mouth once daily. 05/09/20 24 Active clindamycin (Cleocin T) 1 % gel APPLY TO ENTIRE FACE TWICE A DAY AFTER BENZOYL PEROXIDE CLEANSER 12/04/19 25 Active chlorhexidine gluconate (ChloraPREP) 2 % pad Apply topically 1 (one) time. Active spironolactone (Aldactone) 100 mg tablet Take 100 mg by mouth once daily. Active leflunomide (Arava) 20 mg tablet Take 20 mg by mouth once daily. Active albuterol 90 mcg/actuation inhaler Inhale 2 puffs every 6 (six) hours if needed for wheezing. Active ivermectin 1 % creamIndication s:Rosacea Apply topically once to twice daily to affected areas 60 g 11 04/03/20 25 Active sulfacetamide sodium-sulfur 10-1 % cleanserIndicat ions:Rosacea Use to wash affected areas once to twice daily. 170.1 g 11 04/03/20 25 Active ketoconazole (NIZOral) 2 % shampooIndicati ons:Seborrheic dermatitis Use to wash scalp daily as needed. May leave in for 3-5 minutes before rinsing out. 120 mL 11 04/03/20 25 Active acetaminophen (Tylenol) 650 mg suppository Insert into the rectum. 025 Discontinued Hospital, Clinic, or Other Facility Administered Medication Ordered Dose Route Frequency Start Date End Date Status methylPREDNISolone acetate (DEPO-Medrol) injection 40 mgIndications:Fibrom yalgia 40 mg IAtc Once PRN Procedure 04/02/2025 04/02/2025 Ended Active Problems Problem Noted Date Diagnosed Date Fibromyalgia 04/02/2025 Encounters Date Type Department Care Team Description 04/03/2025 1:20 PM EDT Office Visit [facility] Dermatology [place] [address] [place] [phone] Jeni Pearce MD Rosacea (Primary Dx); Seborrheic dermatitis; Non-scarring hair loss; PCOS (polycystic ovarian syndrome) 04/02/2025 11:00 AM EDT Office Visit [facility] Rheumatology [address] [facility] 3rd [place] [address] Jasper Nava MD Fibromyalgia (Primary Dx) 04/02/2025 Travel from Last 3 Months Social History Tobacco Use Types Packs/Day Years Used Date Smoking Tobacco: Never Smokeless Tobacco: Never Tobacco Cessation:Counseling Given: Not Answered Alcohol Use Standard Drinks/Week Comments Not Currently 0 (1 standard drink = 0.6 oz pur e alcohol) Comments Unknown Sex and Gender Information Value Date Recorded Sex Assigned at Not on file Legal Sex Female 1:16 PM EDT Gender Identity Not on file Sexual Orientation Not on file Last Filed Vital Signs Vital Sign Reading Time Taken Comments Blood Pressure 102/76 04/02/2025 10:52 AM EDT Pulse 94 04/02/2025 10:52 AM EDT Temperature - - Respiratory Rate - - Oxygen Saturation 100% 04/02/2025 10:52 AM EDT Inhaled Oxygen Concentration - - Weight 83.5 kg (184 lb) 04/02/2025 10:52 AM EDT Height 161.5 cm (5' 3.6 ) 04/02/2025 10:52 AM ED T Body Mass Index 31.98 04/02/2025 10:52 AM EDT Plan of Treatment Upcoming Encounters Date Type Department Care Team (Late st Contact Info) Description 04/08/2025 10:30 AM EDT Office Visit [facility] Pain [address] [place] [address] Dale Alvarez MD [address] [place] [address] 08/05/2025 1:00 PM EDT Clinical Support [facility] [address] [place] [address] Margie Garcia LICSW [address] [place] [address] Dept. [facility] [place] [address] 08/13/2025 11:30 AM EDT Office Visit [facility] [address] [place] [address] Kati Murphy NP [address] [place] [address] 10/02/2025 10:50 AM EST Office Visit [facility] Dermatology [place] [address] [place] [address] Jeni Pearce MD [address] [facility] [address] [place] [address] 04/02/2026 11:00 AM EDT Office Visit [facility] Rheumatology [address] [facility] [address] 3rd [place] [address] Jasper Nava MD [address] [place] [address] Health Maintenance Due Date Last Done Comments [...] on patient's age to complete this topic Procedures Procedure Name Priority Date/Time Associated Diagnosis Comments HC ARTHROCENTESIS ASPIR&/INJ MAJOR JT/BURSA W/O US Routine 04/02/2025 12:30 PM EDT Fibromyalgia MD ARTHROCENTESIS ASPIR&/INJ MAJOR JT/BURSA W/O US Routine 04/02/2025 12:30 PM EDT Fibromyalgia from Last 3 Months Results * MD ARTHROCENTESIS ASPIR&/INJ MAJOR JT/BURSA W/O US, HC ARTHROCENTESIS ASPIR&/INJ MAJOR JT/BURSA W/O US (04/02/2025 12:30 PM EDT) Narrative Jasper Nava MD - 04/02/2025 12:30 PM EDT Jasper Nava MD ? 04/02/2025 12:31 PM Large Joint Injection/Arthrocentesis: R glenohumeral on 04/02/2025 12:30 PM Details: 25 G needle Medications: 40 mg methylPREDNISolone acetate 40 mg/mL Jasper Nava MD IN CLINIC/BEDSIDE ORDERABLES F inal Result from Last 3 Months Insurance [facility] Care Teams Vp Director Of Finance Relationship Specialty Start Date End Date Zeitler, Namrata, MD [address] [place] [address] PCP - General Network Support Engineer 03/24/25
--- OUTSIDE RECORDS SUMMARY | 2025-04-04 11:35 | XMS_ITS | Patient Health Record ---
Author Organization [facility] Address [address] [place] [address] Care Team Providers Care Shaper Hand Name Role Phone America HYATT, Elke Primary Care Provider Vishal Salinas Jr [phone] Allergies Allergen (clinical drug ingredient) Drug/Non Drug [...] Problem Status W/U Status Risk Notes Problem [id number] Dysphagia (R13.10) Active confirmed Problem [id number] Abnormal upper gastrointestinal barium series (R93.3) Active confirmed Encounters Encounter Location Date Provider Diagnosis [facility] [address] [place] [address] 09/12/2024 Vishal Hutchinson Jr Plan Of Treatment Future Test Test Name Order Date UPPER GI ENDOSCOPY 02/22/2017 Insurance Providers Payer Name Payer Address Payer Phone Subscriber Number Group Number Insured Name Patient Relationship to Insured Coverage Start Date Coverage End Date [facility] [address] [address] [place], [place] [id number] LUCY WALSH Self - patient is the insured MEDICAID OF [facility] [address] [place] [address] [id number] LUCY WALSH Self - patient is the insured Medical (General) History Medical History History ICD Code hypothyroidism attention deficit disorder bipolar disorder PTSD vitamin D deficiency carpal tunnel syndrome menorrhagia
--- OUTSIDE RECORDS SUMMARY | 2025-04-04 11:36 | XMS_ITS ---
Author Organization [facility] Address [address] [facility] [address] 1 [place] [address] Care Team Providers Care Overnight Cashier Name Role Phone GABRIELA NOLAN Primary Care Provider GABRIELA NOLAN Unavailable Unavailable REASON FOR VISIT e/no ref req c0 V Encounters Encounter Location Date Provider Diagnosis [facility] [address] [facility] [address] [place] [address] 05/29/2024 GABRIELA NOLAN Plan Of Treatment Next Appt Details Provider Name:GABRIELA NOLAN, 01:00:00 PM, [address] [facility], [address], [place], [address], Progress Notes * Jaz LYNCH LDOB: 1 (44 yo F)Acc No.[id number]:05/29/2024 Patient:?Jaz LYNCH Provider:?Gabriela Nolan MD :1980???Age:44 Y???Sex:Female D ate:05/29/2024 Address:[address] [place], [place] [id number] Subjective: * Chief Complaints: * ???1. e/no ref req c0 V. * Medical History:? Objective: * Vitals:? Assessment: Plan: * Treatment: * Images: * Electronic signature of GABRIELA NOLAN M.D. on 04/04/2025 at 11:35 AM EDT Sign off status: Pending * Provider:?Gabriela Nolan MD Date:? Generated for Aravind ventura/Nisha/eTransmitting on:?04/04/2025 11:35 AM EDT
--- OUTSIDE RECORDS SUMMARY | 2025-04-04 11:36 | XMS_ITS | Encounter Summary ---
Author Organization [facility] Address [address] [place] [id number] Care Team Providers Care Raise Miner Name Role Phone Namrata Dixon MD Primary Care Provider [phone] Reason for Referral * Procedure (Routine) - Closed Specialty Diagnoses / Procedures Referred By Contac t Referred To Contact Diagnoses Fibromyalgia Procedures Large Joint Injection/Arthrocentesis: Jasper Mujica MD [address] [place] [address] Phone: tel: fax: Referral ID Status Reason Start Date Expiration Date Visits Re quested Visits Authorized [id number] Closed 04/02/2025 04/02/2026 1 1 Reason for Visit * Procedure (Routine) - Closed Specialty Diagnoses / Procedures Referred By Contac t Referred To Contact Diagnoses Fibromyalgia Procedures Large Joint Injection/Arthrocentesis: Jasper Mujica MD [address] [address] Phone: tel: fax: Referral ID Status Reason Start Date Expiration Date Visits Re quested Visits Authorized [id number] Closed 04/02/2025 04/02/2026 1 1 Encounter Details Date Type Department Care Team (Late st Contact Info) Description 04/02/2025 11:00 AM EDT Office Visit [facility] Rheumatology [address] [place] [address] 3rd [place] [address] Jasper Nava MD [address] [address] Fibromyalgia (Primary Dx) Social History Tobacco Use Types Packs/Day Years [...] on file documented as of this encounter Last Filed Vital Signs Vital Sign Reading [...] Mass Index 31.98 04/02/2025 10:52 AM EDT documented in this encounter Progress Notes * Medhat Castelan MD - 04/02/2025 11:00 AM EDT [facility] RHEUMATOLOGY [address] [place] [address] [address] [facility] [id number] Jaz Lynch is a 44 y.o. female seen today in consultation for fibromyalgia. Patient History 44F h/o fibromyalgia, scoliosis with sacroiliac joint dysfunction, b/l rotator cuff tears s/p b/l shoulder surgeries, cervical lumbar degenerative disc disorder, osteoarthritis, obesity s/p bariatricsurgery (2001), hypothyroidism, PCOS, bipolar disorder, PTSD, anxiety, depression, presents to establish care for fibromyalgia. Moved recently, re-establishing care with rheumatology. Reports bilateral arm pain, worst in her upper arm and shoulder, due to fibromyalgia. Started by previous application support manager on pregabalin 150 mg BID but was too sleepy, now down to pregabalin 25 mg BID. Experiences some pain on this dose but hesitant to increase dose due to sleepiness. Also takes acetaminophen 650 mg PRN BID. She endorses shooting pain from left lower back down her left leg. States she has a h/o scoliosis with sacroiliac joint dysfunction which causes this pain. Reportedly has osteoarthritis in knees, lowback. Also with intermittent bilateral hand pain and stiffness, worst in the morning, then improvesthroughout the day. Reports that she had an elevated DANIELE so previous application support manager started her on leflunomide for presumed rheumatoid arthritis, then transitioned to another application support manager a month later who did not agree with this diagnosis and stopped leflunomide. Received cortisone injections in right shoulder (with orthopedic team, last received in 06/2024) andin sacroiliac (with pain management team, last received in summer 2023). These injections alleviated her pain significantly, and the effects lasted for 6-8 months. She has been receiving these injections 1-2x yearly for the past few years. Follows with clinical psychologist and therapist via telemedicine for her psych history, which includes bipolar disorder, PTSD, anxiety, depression. States mood is stable. Mood is worse in the morning due to worsened pain. Problem List[1] Medical History[2] Medications Ordered Prior to Encounter[3] Allergies[4] Exam Visit Vitals BP 102/76 (BP Location: Left arm, Patient Position: Sitting, BP Cuff Size: Large adult) Pulse 94 Ht 1.615 m Wt 83.5 kg SpO2 100% BMI 31.98 kg/m?? BSA 1.94 m?? Physical Exam HENT: Head: Normocephalic and atraumatic. Eyes: Extraocular Movements: Extraocular movements intact. Conjunctiva/sclera: Conjunctivae normal. Cardiovascular: Rate and Rhythm: Normal rate. Pulmonary: Effort: Pulmonary effort is normal. Musculoskeletal: Comments: Hands: Mild tenderness of b/l MCP joints. No erythema. Shoulders: B/l shoulder tenderness, intact ROM. Feet: B/l first toe MTP joint erythema and tenderness to palpation. Neurological: Mental Status: She is alert. HARTMAN-28 (ESR): -- HARTMAN-28 (CRP): -- Assessment/Plan Problem List Items Addressed This Visit Fibromyalgia - Primary 44F h/o fibromyalgia, scoliosis with sacroiliac joint dysfunction, b/l rotator cuff tears s/p b/l shoulder surgeries, cervical lumbar degenerative disc disorder, osteoarthritis, obesity s/p bariatricsurgery (2001), presents for fibromyalgia. Her fibromyalgia-associated pain has been well managed on low-dose pregabalin 25 mg BID and [id number] mg PRN BID. Will defer primary management of this pain to her PCP, though it seems her past regimen has been efficacious. She has a h/o obesity s/p bariatric surgery and is currently on a GLP-1 receptor agonist with goal to lose more weight; her osteoarthritis will benefit from this continued we ight management. Also with h/o rotator cuff tears with past steroid injections in her right shoulder to good effect. Her last shoulder injection was in 06/2024 and she currently reports significant right shoulder pain. Will perform a steroid injection of her right shoulder today. Plan to follow up in 1 year. - Defer primary management of fibromyalgia-associated pain to PCP - Steroid injection of right shoulder today - Follow up in 1 year Patient case and plan discussed with Dr. Nava. Medhat Castelan MD Internal Medicine, PGY-2 [facility] [1] Patient Active Problem List Diagnosis Fibromyalgia [2] Past Medical History: Diagnosis Date Eczema, unspecified type Fibromyalgia Hair loss Hypothyroidism Obesity PCOS (polycystic ovarian syndrome) Sacroiliac joint dysfunction Scoliosis [3] Current Outpatient Medications on File Prior to Visit Medication Sig acetaminophen (Tylenol) 500 mg tablet Take 650 mg by mouth if needed in the morning and at bedtime for pain score 1-3 (mild). amphetamine-dextroamphetamine XR (Adderall XR) 25 mg 24 hr capsule Take 25 mg by mouth in the morning. Do not crush or chew. cariprazine 3 mg capsule Take 3 mg by mouth once daily. pregabalin (Lyrica) 25 mg capsule Take 25 mg by mouth twice daily. vilazodone (Viibryd) 20 mg tablet Take 20 mg by mouth once daily. [DISCONTINUED] acetaminophen (Tylenol) 650 mg suppository Insert into the rectum. No current facility-administered medications on file prior to visit. [4] Allergies Allergen Reactions Duloxetine Cosigned by Jasper Nava MD at 04/02/2025 12:30 PM EDT Associated attestation - Jasper Nava MD - 04/02/2025 12:30 PM EDT I saw and evaluated the patient and participated in the hoffmann portions of the service. I reviewed thereginaldoe's note and edited it as needed. It reflects my findings and management plan. Patient with chronic fibromyalgia pain. Some mild OA developing in bilateral first MTP joints. Majority of pain is from shoulders. Right shoulder subacromial corticosteroid injection done today. She will follow up with her PCP for management of fibromyalgia and chronic meds that she takes for this. I will see her annually to check in and do shoulder injections as needed. Jasper Nava MD * Jasper Nava MD - 04/02/2025 11:00 AM EDTAssociated Order(s): Large Joint Injection/Arthrocentesis: R glenohumeral Post-Procedure Diagnose(s): Fibromyalgia Patient ID: Jaz Lynch is a 44 y.o. female. Large Joint Injection/Arthrocentesis: R glenohumeral on 04/02/2025 12:30 PM Details: 25 G needle Medications: 40 mg methylPREDNISolone acetate 40 mg/mL documented in this encounter Plan of Treatment Upcoming Encounters Date Type Department Care Team (Late st Contact Info) Description 04/08/2025 10:30 AM EDT Office Visit [facility] Pain [address] [place] [address] Dale Alvarez MD 800 [place] [address] 08/05/2025 1:00 PM EDT Clinical Support [facility] Weight and Wellness [address] [address] Margie Garcia LICSW 91 [facility] [address] [facility] [place] [address] 08/13/2025 11:30 AM EDT Office Visit [facility] Weight and Wellness 91 [facility] [address] [place] [address] Kati Murphy, BRANDON [address] [place] [address] 10/02/2025 10:50 AM EST Office Visit [facility] Dermatology [place] [address] [place] [address] Jeni Pearce MD 800 [facility] [address] [place] [address] 04/02/2026 11:00 AM EDT Office Visit [facility] Rheumatology 800 [facility] [address] 3rd [place] [phone] Jasper Nava MD 800 [facility] [address] [place] [address] documented as of this encounter Procedures Procedure Name Priority Date/Time Associated Diagnosis Comments HC ARTHROCENTESIS ASPIR&/INJ MAJOR JT/BURSA W/O US Routine 04/02/2025 12:30 PM EDT Fibromyalgia RI ARTHROCENTESIS ASPIR&/INJ MAJOR JT/BURSA W/O US Routine 04/02/2025 12:30 PM EDT Fibromyalgia documented in this encounter Results * RI ARTHROCENTESIS ASPIR&/INJ MAJOR JT/BURSA W/O US, HC ARTHROCENTESIS ASPIR&/INJ MAJOR JT/BURSA W/O US (04/02/2025 12:30 PM EDT) Narrative Jasper Nava MD - 04/02/2025 12:30 PM EDT Jasper Nava MD ? 04/02/2025 12:31 PM Large Joint Injection/Arthrocentesis: R glenohumeral on 04/02/2025 12:30 PM Details: 25 G needle Medications: 40 mg methylPREDNISolone acetate 40 mg/mL us Jasper Nava MD IN CLINIC/BEDSIDE ORDERABLES F inal Result documented in this encounter Visit Diagnoses Diagnosis Fibromyalgia- Primary Unspecified myalgia and myositis documented in this encounter Administered Medications Inactive Administered Medications - up to 3 most recent administrations Medication Order MAR Action Action Date Dose Rate Site methylPREDNISolone acetate (DEPO-Medrol) injection 40 mg 40 mg, intra-articular, Once PRN Procedure, Starting on Mon04/02/25 at 1230, For 1 doseIndications:Fibromyalgia Given 04/02/2025 12:30 PM EDT 40 mg documented in this encounter Care Teams Raise Miner Relationship Specialty Start Date End Date Namrata Dixon MD [address] [place] [phone] PCP - General Heel Nailing Machine Operator 03/24/25 documented as of this encounter
--- OUTSIDE RECORDS SUMMARY | 2025-04-04 11:36 | XMS_ITS | Clinical Summary ---
Author Organization [facility] Address [address] [place] [address] Care Team Providers Care Vocal Music Instructor Name Role Phone Namrata Dixon MD Primary Care Provider [phone] Source Comments PLEASE NOTE, if this patient [...] pain clinic and Rheum here in the [place] area. Referrals placed. Obesity without serious comorbidity 03/25/2025 Assessment & Plan (03/25/2025 2:21 PM EDT): Current BMI 32. Patient hoping to reestablish with a weight clinic here in the [facility]. She underwent bariatric surgery several years ago outside of [place], and continues on a multivitamin and Ca/Vit [...] and a pain clinic here in the [facility]. Referrals placed. Sacroiliac joint dysfunction 03/25/2025 Assessment & Plan (03/25/2025 2:21 PM EDT): Patient had tremendous benefit working with her prior pain clinic which was providing cortisone injections. She is hoping to newly establish with a pain clinic here in the [facility] where she can continue these treatments. Reviewed the importance of getting outside records and CD with any prior imaging in preparation for new appointments. PCOS (polycystic ovarian syndrome) 03/25/2025 Assessment & Plan (03/25/2025 2:21 PM EDT): Patient reports a history of PCOS for which she is on Metformin 500mg BID. Continues to have very irregular periods. Was previously following with OBGYN in [place], all paps have been reportedly normal with [...] Description 03/20/2025 1:30 PM EDT Office Visit [facility]-Internal Medicine [address] [place] [address] Namrata Dixon MD Scoliosis, unspecified [...] series) 0 Breast Cancer Screening (Mammogram) 2021 [id number] () 07/21/2024 Imm-Influenza (#1) 2024 Alcohol and [...] Most Recently Relevant to Health Maintenance Insurance [facility] [employer] Member Subscriber Plan / Payer (Ef fective 2024-Present) Name:Jaz Lynch Relation to Subscriber:Self Name:Jaz Lynch Payer ID:[id number] Group ID:Not on file Type:Medicaid Address: [facility] [address] [place] [address] Care Teams Vocal Music Instructor Relationship Specialty Start Date End Date Namrata Dixon MD [address] [place] [phone] PCP - General Internal Medicine 03/20/25
--- OUTSIDE RECORDS SUMMARY | 2025-04-04 11:36 | XMS_ITS | Clinical Summary ---
Author Organization [facility] Address [address] [place] [address] Phone Care Team Providers Care Air Sealing Technician Name Role Phone Elke Cross MD Unavailable [phone] Encounters Date Type Department Care Team Description 02/21/[address] [facility] [address] [place] [phone] Jannette Wolfe NP from Last 3 Months [...] age to complete this topic Care Teams Air Sealing Technician Relationship Specialty Start Date End Date Elke Cross MD [address] [place] [address] PCP - Insurance 02/06/25
--- OUTSIDE RECORDS SUMMARY | 2025-04-04 11:36 | XMS_ITS | Encounter Summary ---
Author Organization [facility] Address 800 [facility] [address] [place] [address] Care Team Providers Care Blood Bank Coordinator Name Role Phone Namrata Dixon MD Primary Care Provider [phone] Reason for Visit * Reason Comments Acne Washing with cerave wash/BPO Was using ivermectin Hair/Scalp Problem HL, shedding+ excess hair on face Encounter Details Date Type Department Care Team (Late st Contact Info) Description 04/03/2025 1:20 PM EDT Office Visit [facility] Dermatology [place] [address] [place] [phone] Jeni Pearce MD 800 [facility] [address] [place] [address] Rosacea (Primary Dx); Seborrheic dermatitis; Non-scarring hair loss; PCOS (polycystic ovarian syndrome) Social History Tobacco Use Types Packs/Day Years Used Date Smoking Tobacco: Never Smokeless Tobacco: Never Alcohol Use Standard Drinks/Week Comments Not Currently 0 (1 standard drink = 0.6 oz pur e alcohol) Comments Unknown Sex and Gender Information Value Date Recorded Sex Assigned at Not on file Legal Sex Female 1:16 PM EDT Gender Identity Not on file Sexual Orientation Not on file documented as of this encounter Progress Notes * Jeni Pearce MD - 04/03/2025 1:20 PM EDT [facility] Department of Dermatology New Patient 04/03/25 Jaz Lynch is a 44 y.o. y.o. female who presents for a new patient visit. HPI History of Present Illness The patient presents for evaluation of acne, Demodex, rosacea, hair loss. Acne - The patient's acne is currently well-managed with CeraVe containing benzoyl peroxide. - They use this to wash their face twice daily. Demodex and Rosacea - Diagnosed with Demodex and rosacea by their previous resident service coordinator. - Experiences intermittent facial redness. - Does not report the presence of any red bumps. - Previously used Soolantra, which was effective. - Soolantra was subsequently replaced with generic ivermectin. - Has also been on spironolactone but stopped the medicine Hair Loss - Hair loss has been a concern for several years. - Causes distress, especially when washing their hair. - Fam hx of hair loss in grandparents - Menstrual irregularity present Hirsutism - Reports excessive hair growth on the chin, managed through plucking. - Laser treatment for hair removal on upper lip and chin has resulted in some improvement. - Advised against further laser treatment by hot mill roller due to the location of the hair. - Electrolysis has been recommended for hair removal. ROS Patient feels well. No other skin complaints. No other systemic symptoms. Medical History Medical History[1] Surgical History[2] Medications Current, updated medication list as of end of today's visit: Current Outpatient Medications Medication Instructions acetaminophen (TYLENOL) 650 mg, 2 times daily PRN albuterol 90 mcg/actuation inhaler 2 puffs, Every 6 hours PRN amphetamine-dextroamphetamine XR (Adderall XR) 25 mg 24 hr capsule 25 mg, Every morning cariprazine 3 mg, Daily cetirizine (ZYRTEC) 10 mg, Daily chlorhexidine gluconate (ChloraPREP) 2 % pad Once clindamycin (Cleocin T) 1 % gel APPLY TO ENTIRE FACE TWICE A DAY AFTER BENZOYL PEROXIDE CLEANSER fluticasone (Flonase) 50 mcg/actuation nasal spray 2 sprays, 2 times daily ivermectin 1 % cream Apply topically once to twice daily to affected areas ketoconazole (NIZOral) 2 % shampoo Use to wash scalp daily as needed. May leave in for 3-5 minutes before rinsing out. leflunomide (ARAVA) 20 mg, Daily levothyroxine (SYNTHROID, LEVOXYL) 50 mcg, Daily RT meloxicam (MOBIC) 15 mg, Daily metFORMIN (GLUCOPHAGE) 500 mg Ozempic 0.5 mg, Weekly pregabalin (LYRICA) 25 mg, 2 times daily spironolactone (ALDACTONE) 100 mg, Daily sulfacetamide sodium-sulfur 10-1 % cleanser Use to wash affected areas once to twice daily. vilazodone (VIIBRYD) 20 mg, Daily Allergies Allergies[3] Physical Exam Well appearing patient in no apparent distress; mood and affect are within normal limits. Skin examwas performed of the following and pertinent positives are included below: Impression/Plan Skin Exam - Physical Exam, Assessment, Plan, & Procedures Skin Exam 1. ROSACEA Head - Anterior (Face) Facial erythema with scattered telangiectasias. Discussed difficulty in treating ETT with topicals. Discussed trial of oxymetazoline cream however not covered by insurance, discussed cost via compounding pharmacy patient deferred. Prefers to continue topical ivermectin, submitted to pharmacy today (per EMR requires PA, but per patient has been covered by insurance before). Add sulfur-sulfacetamide wash, prefers prescription sent to pharmacy, if no covered can try OTC Joesef wash. Related Medications ivermectin 1 % cream Apply topically once to twice daily to affected areas sulfacetamide sodium-sulfur 10-1 % cleanser Use to wash affected areas once to twice daily. 2. SEBORRHEIC DERMATITIS Scalp Rosman scale and erythema noted. Moderate. -Discussed etiology and treatment options. - Status: Chronic illness with exacerbation, progression or side effects of treatment Plan: - Start ketoconazole shampoo 2% TIW - Alternate with head and shoulders shampoo Related Medications ketoconazole (NIZOral) 2 % shampoo Use to wash scalp daily as needed. May leave in for 3-5 minutes before rinsing out. 3. NON-SCARRING HAIR LOSS Scalp Favor AGA, possible element of PCOS (hirsutism, h/o acane, irregular menses). Discussed options forAGA treatment, decision to first treat seborrheic dermatitis as above, labwork (Vit D, Ferritin, Zinc) to assess need for supplementation, and PCOS w/u as below before considering oral or topical mary xidil as next line. Patient OK to restart spironolactone which also may improve AGA. Plan: - Labs as below - Spironolactone 100 mg daily - Spironolactone side effects discussed, including: GI upset, dizziness, menstrual irregularity, elevated potassium. Patient aware not to take if and to avoid excess ibuprofen and potassium intake. Related Procedures Vitamin D 25 hydroxy Zinc Ferritin 4. PCOS (POLYCYSTIC OVARIAN SYNDROME) Generalized Hirsutism, AGA, irregular menstural cycle, acne. Plan: - Labs as below - Consider endorinology workup - Start spironolactone 100 mg daily Related Procedures 17-Hydroxyprogesterone DHEA-sulfate Follicle Stimulating Hormone Luteinizing hormone Prolactin Sex hormone binding globulin Testosterone, Free and Total, MS RTC 6 mo This visit note was drafted with the help of artificial intelligence. I obtained consent to record the visit from all participants for this purpose. Jeni Pearce MD [1] Past Medical History: Diagnosis Date Eczema, unspecified type Fibromyalgia Hair loss Hypothyroidism Obesity PCOS (polycystic ovarian syndrome) Sacroiliac joint dysfunction Scoliosis [2] No past surgical history on file. [3] Allergies Allergen Reactions Duloxetine documented in this encounter Plan of Treatment Upcoming Encounters Date Type Department Care Team (Late st Contact Info) Description 04/08/2025 10:30 AM EDT Office Visit [facility] Pain [address] [place] [address] Dale Alvarez MD [address] [place] [address] 08/05/2025 1:00 PM EDT Clinical Support [facility] Weight and Wellness [address] [place] [phone] Margie Garcia LICSW [address] [place] [address] Dept. [facility] [place] [address] 08/13/2025 11:30 AM EDT Office Visit [facility] Weight and Wellness [address] [place] [phone] Kati Murphy NP 30 [facility] Geremias. ELISSA Cloud [id number] 10/02/2025 10:50 AM EST Office Visit [facility] Dermatology [place] [address] [place] [phone] Jeni Pearce MD 800 [facility] [address] [place] [address] 04/02/2026 11:00 AM EDT Office Visit [facility] Rheumatology [address] [facility] [address] 3rd [place] [phone] Jasper Nava MD 800 [facility] [address] [place] [address] Scheduled Orders Name Type Priority Associated Diagnoses Orde r Schedule Vitamin D 25 hydroxy Lab Routine Non-scarring hair loss Expected: 04/03/2025 (Approximate), Expires: 04/03/2026 Zinc Lab Routine Non-scarring hair loss Expected: 04/03/2025 (Approximate), Expires: 04/03/2026 Ferritin Lab Routine Non-scarring hair loss Expected: 04/03/2025 (Approximate), Expires: 04/03/2026 17-Hydroxyprogesterone Lab Routine PCOS (polycystic ovarian syndrome) Expected: 04/03/2025 (Approximate), Expires: 04/03/2026 DHEA-sulfate Lab Routine PCOS (polycystic ovarian syndrome) Expected: 04/03/2025 (Approximate), Expires: 04/03/2026 Follicle Stimulating Hormone Lab Routine PCOS (polycystic ovarian syndrome) Expected: 04/03/2025 (Approximate), Expires: 04/03/2026 Luteinizing hormone Lab Routine PCOS (polycystic ovarian syndrome) Expected: 04/03/2025 (Approximate), Expires: 04/03/2026 Prolactin Lab Routine PCOS (polycystic ovarian syndrome) Expected: 04/03/2025 (Approximate), Expires: 04/03/2026 Sex hormone binding globulin Lab Routine PCOS (polycystic ovarian syndrome) Expected: 04/03/2025 (Approximate), Expires: 04/03/2026 Testosterone, Free and Total, MS Lab Routine PCOS (polycystic ovarian syndrome) Expected: 04/03/2025 (Approximate), Expires: 04/03/2026 documented as of this encounter Visit Diagnoses Diagnosis Rosacea- Primary Seborrheic dermatitis Unspecified seborrheic dermatitis Non-scarring hair loss Other alopecia PCOS (polycystic ovarian syndrome) Polycystic ovaries documented in this encounter Care Teams Blood Bank Coordinator Relationship Specialty Start Date End Date Namrata Dixon MD [address] [place] [id number] PCP - General Manager Quality Improvement 03/24/25 documented as of this encounter
--- OUTSIDE RECORDS SUMMARY | 2025-04-04 11:36 | XMS_ITS ---
Author Organization [facility] Address [address] 1 [place] [address] Care Team Providers Care Regional Sales Executive Name Role Phone GABRIELA NOLAN Primary Care Provider GABRIELA NOLAN Unavailable Unavailable REASON FOR VISIT e/no ref req c0 Encounters Encounter Location Date Provider Diagnosis [facility] [address] [place] [address] 05/29/2024 GABRIELA NOLAN Plan Of Treatment Next Appt Details Provider Name:GABRIELA NOLAN, 01:00:00 PM, [address], [place], [address], Progress Notes * Jaz LYNCH LDOB: 1 (44 yo F)Acc No.[id number]:05/29/2024 Patient:?Jaz LYNCH Provider:?Gabriela Nolan MD :1980???Age:44 Y???Sex:Female D ate:05/29/2024 Address:[address] [place], [place] [id number] Subjective: * Chief Complaints: * ???1. E/no ref req c0. * Medical History:? Objective: * Vitals:? Assessment: Plan: * Treatment: * Images: * Electronic signature of GABRIELA NOLAN M.D. on 04/04/2025 at 11:36 AM EDT Sign off status: Pending * Provider:?Gabriela Nolan MD Date:? Generated for Aravind ventura/Nisha/eTmarksmitting on:?04/04/2025 11:36 AM EDT
--- OUTSIDE RECORDS SUMMARY | 2025-04-04 11:36 | XMS_ITS | Encounter Summary ---
Author Organization [facility] Address [address] [place] [address] Care Team Providers Care Supervisor Sterile Processing Name Role Phone Namrata Dixon MD Primary Care Provider [phone] Encounter Details Date Type Department Care Team (Latest Contact Info) Description 04/02/2025 Travel Social History Tobacco Use Types Packs/Day Years [...] on file documented as of this encounter Plan of Treatment Upcoming Encounters Date Type Department Care Team (Late st Contact Info) Description 04/08/2025 10:30 AM EDT Office Visit [facility] Pain [address] [place] [address] Dale Alvarez MD [address] [place] [address] 08/05/2025 1:00 PM EDT Clinical Support [facility] Weight and Wellness [address] [place] [address] Margie Garcia LICSW [address] [facility] [address] [facility] [place] [address] 08/13/2025 11:30 AM EDT Office Visit [facility] [address] [place] [address] Kati Murphy, BRANDON [address] [place] [address] 10/02/2025 10:50 AM EST Office Visit [facility] Dermatology [place] [address] [place] [address] Jeni Pearce MD [address] [facility] [address] [place] [address] 04/02/2026 11:00 AM EDT Office Visit [facility] Rheumatology [address] [facility] [address] 3rd [place] [phone] Jasper Nava MD [address] [facility] [address] [place] [address] documented as of this encounter Visit Diagnoses Not on filedocumented in this encounter Care Teams Supervisor Sterile Processing Relationship Specialty Start Date End Date Namrata Dixon MD [address] [place] [id number] PCP - General Software Engineer Web Services 03/24/25 documented as of this encounter
--- OUTSIDE RECORDS SUMMARY | 2025-04-04 11:36 | XMS_ITS | Clinical Summary ---
Author Organization [facility] Address [address] [place] [address] Care Team Providers Care Retirement Consultant Name Role Phone Unavailable Primary Care Provider [...] age to complete this topic Insurance [facility]
--- OUTSIDE RECORDS SUMMARY | 2025-04-04 11:36 | XMS_ITS ---
Author Organization [facility] Address [address] [place] [address] Care Team Providers Care Bibliographic Services Specialist Name Role Phone America HYATT, Elke Primary Care Provider Tati Hutchinson Jr, Vishal Suazo [phone] REASON FOR VISIT Pt no showed Encounters Encounter Location Date Provider Diagnosis [facility] [address] [place] [address] 09/12/2024 Vishal Hutchinson Jr Plan Of Treatment No Information Progress Notes * LUCY WALSHDOB:1980 (44 yo F)Acc No.[id number]:09/12/2024 Patient:?LUCY WALSH :1980???Age:44 Y???Sex:Female Address:[address] [place] [address] [address] , [place], [address] * true * Date:? Generated for Printi ng/Faeverardog/eTransmitting on:?04/04/2025 11:36 AM EDT
== END 2025-04-04 11:13 | disposition home or self-care (01) ==
LOC: HO.HBS 11:10
PROVIDERS: PCP Internal Medicine; Visit Provider Physician Assistant Surgical
DX: M79.7 Fibromyalgia (principal); Z98.84 Bariatric surgery status
CPT/HCPCS: 99213; G2211

== ENCOUNTER 2025-05-06 13:20 | Outpatient (AMB) | payer OTHER, SELFPAY ==
--- NOTE | 2025-05-06 13:05 | A.OFFWM_ITS ---
Intake Intake Visit Reasons: VIDEO PO LSG 02/06/22 Allergies cat dander [CAT DANDER] Allergy (Mild, Verified 01/02/25 12:56) EYES- TEAR, ITCHY, face swells dog dander [DOG DANDER] Allergy (Mild, Verified 01/02/25 12:56) EYES- TEAR, ITCHY, hives duloxetine [From CYMBALTA] Adverse Reaction (Intermediate, Verified 01/02/25 12:56) VAGINAL BLEEDING PFSH Medical History Bilateral knee pain Sacroiliac pain Positive DANIELE (antinuclear antibody) Refused influenza vaccine PTSD (post-traumatic stress disorder) Insomnia PONV (postoperative nausea and vomiting) Gastric ulcer Cholelithiasis Sacroiliitis Spondylosis of lumbar region without myelopathy or radiculopathy Scoliosis Goiter Restless leg syndrome ADHD (attention deficit hyperactivity disorder) Anxiety OCD (obsessive compulsive disorder) Hypertension GERD (gastroesophageal reflux disease) Vitamin D deficiency PCOS (polycystic ovarian syndrome) Body mass index [BMI]40.0-44.9, adult Irritable bowel syndrome with diarrhea Environmental and seasonal allergies Breast cancer screening by mammogram Dyslipidemia Gastritis Morbid obesity Hirsutism Telogen effluvium Heartburn Degenerative disc disease, lumbar Fibromyalgia Bipolar disorder Rosacea Acquired hypothyroidism Surgical History S/P laparoscopic sleeve gastrectomy Hx of bariatric surgery Hx of shoulder surgery Hx of cholecystectomy Hx of colonoscopy Miscarriage History of nasal surgery History of rotator cuff surgery Family History Father Diabetes mellitus Mother OCD (obsessive compulsive disorder) EITAN (generalized anxiety disorder) HTN (hypertension) Cancer Cervical cancer Family/Other FH: mental illness Maternal Grandmother EITAN (generalized anxiety disorder) Glaucoma Mental health disorder Maternal Grandfather Alzheimer disease Maternal Aunt Hypothyroidism Mental health disorder Paternal Grandmother Unknown family medical history Paternal Grandfather Unknown family medical history Sister Hypothyroidism Paternal Aunt Substance use disorder Maternal Uncle Substance use disorder Social History Household Members Other:: brother Housing: Apartment Are you a primary direct care counselor to a significant other at home: No Do you presently have visiting nurse or other home services: No Alcohol intake: never Patient Tobacco Use Status: Former Tobacco user Tobacco use type: Cigarette Cigarettes Per Day: 20 Years Smoked: 3 e-Cigarette/Vaping Use: Never Used service: No Current occupational status: disabled Cognitive needs: No Hearing needs: No Vision needs: Yes Behavioral Health Assessment Weight Management Therapy Therapy Notes Details Subjective: PT reports she has been feeling anxious and struggling with negative thoughts and catastrophic thinking. Objective: PT presents for a f/up visit via Telehealth. . Processed triggers/events that have created these anxiety responses Used CBT to process responses and plan for constructive coping skills. Used CPT while PT disclosed past negative Hx of trauma. Completed a mindfulness exercise. Assessment/Response: * Mental status: depressed, tension, blocked at times, but oriented x3, alert and engaged in session. Good functioning reported. * Risk reported/identified: None PT responded well to interventions. Assessment & Plan Assessment & Plan (1) Unspecified mood [affective] disorder: Code(s): F39 - Unspecified mood [affective] disorder (2) Generalized anxiety disorder: Code(s): F41.1 - Generalized anxiety disorder Plan Continue bi-weekly behavioral health sessions. PT advised to consult with MH prescriber about short-term increase of medication for depression, however PT has also been encouraged to implement coping skills in combination w/ behavioral activation and to continue using Socratic questioning dome today for cognitive reframing and restructuring negative thinking. Next Appointment: 06/03/2025 at 1pm, TH. PT placed in a cancelation list in 2 weeks as the week is already booked. We also booked several months of appointments on a bi-weekly basis after 06/03. Telehealth Telehealth Telehealth [facility]: [facility] Location of provider rendering services: practice address Location of patient: address on file Patient Identification confirmed using: Name, : Yes Telehealth method: video Patient verbally consented to treatment: Yes Patient verbally consented to billing insurance company: Yes Patient informed of any privacy concerns related to visit: Yes Minutes spent on Phone/Video with Pt.: 60 Coding Level of Care Code Established Pt Tele Psytx >53 mins (41483) Patient Type Established Diagnoses Unspecified mood [affective] disorder F39 Generalized anxiety disorder F41.1 Time Spent (min) 60
--- OUTSIDE RECORDS SUMMARY | 2025-05-06 15:13 | XMS_ITS | Patient Health Record ---
Author Organization [facility] Address [address] [place] [address] Care Team Providers Care Greaser And Oiler Name Role Phone America HYATT, Elke Primary [...] Problem Status W/U Status Risk Notes Problem [id number] Dysphagia (R13.10) Active confirmed Problem [id number] Abnormal upper gastrointestinal barium series (R93.3) Active confirmed Encounters Encounter Location Date Provider Diagnosis [facility] [address] [place] [address] 09/12/2024 Vishal Hutchinson Jr Plan Of Treatment Future Test Test Name Order Date UPPER GI ENDOSCOPY 02/22/2017 Insurance Providers Payer Name Payer Address Payer Phone Subscriber Number Group Number Insured Name Patient Relationship to Insured Coverage Start Date Coverage End Date [facility] [address] [address] [place], [place] [id number] LUCY WALSH Self - patient is the insured MEDICAID OF [facility] [address] [place] [address] [id number] LUCY WALSH Self - patient is the insured Medical (General) History Medical History History ICD Code hypothyroidism attention deficit disorder bipolar disorder PTSD vitamin D deficiency carpal tunnel syndrome menorrhagia
== END 2025-05-06 14:17 | disposition home or self-care (01) ==
LOC: HO.HBST 13:20
PROVIDERS: PCP Internal Medicine; Visit Provider Counselor Mental Health
DX: F39 Unspecified mood [affective] disorder (principal); F41.1 Generalized anxiety disorder
CPT/HCPCS: 90837

== ENCOUNTER 2025-06-03 13:13 | Outpatient (AMB) | payer OTHER, SELFPAY ==
--- NOTE | 2025-06-03 13:00 | A.OFFWM_ITS ---
Intake Intake Visit Reasons: VIDEO PO LSG 02/06/22 Allergies cat dander (CAT DANDER) Allergy (Mild, Verified 01/02/25 12:56) EYES- TEAR, ITCHY, face swells dog dander (DOG DANDER) Allergy (Mild, Verified 01/02/25 12:56) EYES- TEAR, ITCHY, hives duloxetine (From CYMBALTA) Adverse Reaction (Intermediate, Verified 01/02/25 12:56) VAGINAL BLEEDING PFSH Medical History Bilateral knee pain Sacroiliac pain Positive DANIELE (antinuclear antibody) Refused influenza vaccine PTSD (post-traumatic stress disorder) Insomnia PONV (postoperative nausea and vomiting) Gastric ulcer Cholelithiasis Sacroiliitis Spondylosis of lumbar region without myelopathy or radiculopathy Scoliosis Goiter Restless leg syndrome ADHD (attention deficit hyperactivity disorder) Anxiety OCD (obsessive compulsive disorder) Hypertension GERD (gastroesophageal reflux disease) Vitamin D deficiency PCOS (polycystic ovarian syndrome) Body mass index [BMI]40.0-44.9, adult Irritable bowel syndrome with diarrhea Environmental and seasonal allergies Breast cancer screening by mammogram Dyslipidemia Gastritis Morbid obesity Hirsutism Telogen effluvium Heartburn Degenerative disc disease, lumbar Fibromyalgia Bipolar disorder Rosacea Acquired hypothyroidism Surgical History S/P laparoscopic sleeve gastrectomy Hx of bariatric surgery Hx of shoulder surgery Hx of cholecystectomy Hx of colonoscopy Miscarriage History of nasal surgery History of rotator cuff surgery Family History Father Diabetes mellitus Mother OCD (obsessive compulsive disorder) EITAN (generalized anxiety disorder) HTN (hypertension) Cancer Cervical cancer Family/Other FH: mental illness Maternal Grandmother EITAN (generalized anxiety disorder) Glaucoma Mental health disorder Maternal Grandfather Alzheimer disease Maternal Aunt Hypothyroidism Mental health disorder Paternal Grandmother Unknown family medical history Paternal Grandfather Unknown family medical history Sister Hypothyroidism Paternal Aunt Substance use disorder Maternal Uncle Substance use disorder Social History Household Members Other:: brother Housing: Apartment Are you a primary neonatal intensive care nurse to a significant other at home: No Do you presently have visiting nurse or other home services: No Alcohol intake: never Patient Tobacco Use Status: Former Tobacco user Tobacco use type: Cigarette Cigarettes Per Day: 20 Years Smoked: 3 e-Cigarette/Vaping Use: Never Used service: No Current occupational status: disabled Cognitive needs: No Hearing needs: No Vision needs: Yes Behavioral Health Assessment Weight Management Therapy Therapy Notes Details Subjective: The patient reports increased anxiety about an upcoming 3-week trip to [place] with her partner and his three children. She is anticipating potential negative experiences, which has contributed to worry and emotional dysregulation. She describes feeling mentally blocked when anxious and notes overthinking, particularly during workouts. This has impacted her consistency with exercise and has contributed to increased negative thoughts about her relationship, leading to recent tension with her partner. The patient reports some weight loss since initiating Ozempic, which she attributes to reduced snacking and a noticeable decrease in food noise or intrusive food-related thoughts. She has set a personal goal to use the time until December to reset emotionally and return to her target weight. Objective: The patient attended today?s follow-up session via Telehealth. She was alert, cooperative, and engaged throughout the session. A Cognitive Behavioral Therapy (CBT) approach was used to address her current stressors and unhelpful thought patterns. Interventions included: * Psychoeducation on the cognitive distortions of catastrophizing and [id number] thinking. * Exploration of self-sabotaging patterns and their emotional triggers. * Guided examination of potential scenarios related to the upcoming trip, with a focus on identifying automatic thoughts and emotional responses. * Collaborative development of more balanced, realistic thoughts to replace anxious predictions. * Problem-solving techniques to increase perceived control over anxiety-inducing situations. * Reframing of relationship-related concerns to reduce anticipatory conflict and foster more adaptive communication with her partner. Behavioral strategies to increase self-regulation and coping during travel were discussed. Emphasis was placed on increasing self-awareness, self-compassion, and behavioral activation (e.g., movement, routine) despite anticipatory stress. Assessment/Response: * Mental status: Patient was oriented ?3, with appropriate affect and insight. Thought processes were logical and goal-directed. Speech was normal in rate and tone. No evidence of perceptual disturbances or thought disorganization. Mood described as anxious but hopeful. * Risk reported/identified: None Assessment & Plan Assessment & Plan (1) Unspecified mood [affective] disorder: Code(s): F39 - Unspecified mood [affective] disorder (2) Generalized anxiety disorder: Code(s): F41.1 - Generalized anxiety disorder Plan Continue with CBT-based interventions to target anxiety, cognitive distortions, and behavior patterns interfering with functioning and relationship satisfaction. Patient will implement coping strategies discussed during upcoming trip. Next session scheduled for 1 month following return from travel. * Next anamaria: 07/01/25 at 1pm - Telehealth. Telehealth Telehealth Telehealth Platform: [employer] Location of provider rendering services: other (Home office. [place], [place]) Location of patient: address on file Patient Identification confirmed using: Name, : Yes Patient verbally consented to treatment: Yes Patient verbally consented to billing insurance company: Yes Patient informed of any privacy concerns related to visit: Yes Minutes spent on Phone/Video with Pt.: 60 Coding Level of Care Code Established Pt Tele Psytx >53 mins (95570) Patient Type Established Diagnoses Unspecified mood [affective] disorder F39 Generalized anxiety disorder F41.1 Time Spent (min) 60
--- OUTSIDE RECORDS SUMMARY | 2025-06-03 14:35 | XMS_ITS | Referral Summary ---
Author Organization [facility] Address [address] [place] [address] Phone Care Team Providers Care Waste Machine Operator Name Role Phone Elke Cross MD Unavailable [phone] Social History Tobacco Use Types Packs/Day Years Used Date Smoking Tobacco: Never Assessed Comments Unknown Sex and Gender Information Value Date Recorded Sex Assigned at Female 06/10/2024 4:31 PM EDT Legal Sex Female 4:17 PM EDT Gender Identity Female 06/10/2024 4:31 PM EDT Sexual Orientation Patient chooses not to answer 02/06/2025 2:03 PM EDT Plan of Treatment Not on file Care Teams Waste Machine Operator Relationship Specialty Start Date End Date Elke Cross MD [address] [place] [address] PCP - Insurance 02/06/25
--- OUTSIDE RECORDS SUMMARY | 2025-06-03 14:35 | XMS_ITS | Patient Health Record ---
Author Organization [facility] Address [address] [place] [address] Care Team Providers Care Obstetrics Gynecology Md Name Role Phone America HYATT, Elke Primary [...] Problem Status W/U Status Risk Notes Problem [id number] Dysphagia (R13.10) Active confirmed Problem [id number] Abnormal upper gastrointestinal barium series (R93.3) Active confirmed Encounters Encounter Location Date Provider Diagnosis [facility] [address] [place] [address] 09/12/2024 Vishal Hutchinson Jr Plan Of Treatment Future Test Test Name Order Date UPPER GI ENDOSCOPY 02/22/2017 Insurance Providers Payer Name Payer Address Payer Phone Subscriber Number Group Number Insured Name Patient Relationship to Insured Coverage Start Date Coverage End Date [facility] [address] [address] [place], [place] [id number] LUCY WALSH Self - patient is the insured MEDICAID OF [facility] [address] [place] [address] [id number] LUCY WALSH Self - patient is the insured Medical (General) History Medical History History ICD Code hypothyroidism attention deficit disorder bipolar disorder PTSD vitamin D deficiency carpal tunnel syndrome menorrhagia
--- OUTSIDE RECORDS SUMMARY | 2025-06-03 14:35 | XMS_ITS | Patient Health Record ---
Author Organization [facility] Address [address] [place] [address] Care Team Providers [employer] Name Role Phone MANFRED MANRIQUEZ Primary Care Provider Unavail able GABRIELA NOLAN Unavailable [phone] Bartolome Farooq Unavailable [phone] Allergies Allergen (clinical drug ingredient) Drug/Non Drug Allergy documented on EMR Reaction Allergy Type Onset Date Status duloxetine Cymbalta vaginal bleeding Drug Allergy Active Reason For Referral No Information Medications Medication SIG (Take, Route, Frequency, Duration) Notes Start Date End Date Status Metformin & Diet Manage Prod 500 mg PO BID Active Vraylar 3 mg PO QD Active Spironolactone 100 mg PO QD Ac tive EpiPen 2-Matty 0.3 MG/0.3ML Solution Auto-injector as directed Injection PRN; Duration: 14 days Active Cetirizine HCl 10 MG Tablet 1 tablet Orally Once a day; Duration: 90 day(s) 05/14/2025 Active EPINEPHrine 0.3 MG/0.3ML Solution Auto-injector Inject 0.30mg into thigh as needed Injection Inject 0.30mg into thigh as needed; Duration: 30 days 05/14/2025 Active Alclometasone Dipropionate 0.05% Active Adderall XR 25 mg PO BID Activ e clonazePAM 0.5 mg PO QD Active Ozempic .5 SC Q1W Active Fluticasone Propionate 93 MCG/ACT Exhaler Suspension 2 sprays (1 spray in each nostril) Nasally Twice a day; Duration: 30 days 05/14/2025 Active Levothyroxine Sodium 50 mcg PO QD Active Clindamycin HCl 1% topical gel PRN Active Lyrica 75 mg PO BID Active Viibryd 10 mg PO WD Active Calcium Carbonate 250 mg PO BID Active Social History Section Notes: Social history documented on 04/16/2025 and reviewed on 05/14/2025 with no changes. Smoking: nonsmoker. Alcohol: nondrinker. Environmental Exposures: An extensive record of environmental exposures at home and at work was obtained: -Visible mold or mildew in the home/work: none -Workplace allergen exposures include: none -Feather pillows on the bed (likely high in dust mites): none -Down comforter on the bed (likely high in dust mites): none -Bedroom carpeting (associated with dust mites): none -Pet: none -Indoor smoking: no. Social history documented on 04/16/2025 Smoking: nonsmoker. Alcohol: nondrinker. Environmental Exposures: An extensive record of environmental exposures at home and at work was obtained: -Visible mold or mildew in the home/work: none -Workplace allergen exposures include: none -Feather pillows on the bed (likely high in dust mites): none -Down comforter on the bed (likely high in dust mites): none -Bedroom carpeting (associated with dust mites): none -Pet: none -Indoor smoking: no. Social history documented on 04/16/2025 Smoking: nonsmoker. Alcohol: nondrinker. Environmental Exposures: An extensive record of environmental exposures at home and at work was obtained: -Visible mold or mildew in the home/work: none -Workplace allergen exposures include: none -Feather pillows on the bed (likely high in dust mites): none -Down comforter on the bed (likely high in dust mites): none -Bedroom carpeting (associated with dust mites): none -Pet: none -Indoor smoking: no. Problems Problem Type SNOMED Code ICD Code Onset Dates Problem Status W/U Status Risk Notes Problem Other allergic rhinitis (J30.89) Active confirmed Problem Chronic allergic conjunctivitis (93330305) Other chronic allergic conjunctivitis (H10.45) Active confirmed Vital Signs Temperature 98 degrees Fahrenheit 05/14/2025 Height 63 in 05/14/2025 Weight 182 lbs 05/14/2025 BMI 32.24 kg/m2 05/14/2025 Encounters Encounter Location Date Provider Diagnosis [facility] [address] [place] [address] 04/16/2025 Bartolome Din Other chronic allerg ic conjunctivitis H10.45 ; Other allergic rhinitis J30.89 and Deviated nasal septum J34.2 [facility] [address] [place] [address] 04/23/2025 GABRIELA NOLAN Other allergic rhini tis J30.89 and Other chronic allergic conjunctivitis H10.45 [facility] [address] [place] [address] 05/14/2025 GABRIELA NOLAN Other chronic allerg ic conjunctivitis H10.45 ; Other allergic rhinitis J30.89 and Deviated nasal septum J34.2 [facility] [address] [place] [address] 05/15/2025 GABRIELA NOLAN Assessments Encounter Date Diagnosis (ICD Code) Assessment Notes Treatment Notes Treatment Clinical Notes Section Notes 04/16/2025 Other allergic rhinitis (ICD-10 - J30.89) Moderately-controlled with Cetirizine 10 mg PO PRN + Flonase with good sx relief. Patient was on SCIT with outside hotel sales manager from 04/2023 - 04/2024. She is interested in transferring care to our clinic and is unsure if she will need new vials. We discussed the three different modalities for treating allergic rhinoconjunctivitis including allergen avoidance, medication management and immunotherapy. - Patient to return for SPT/ID testing to environmental allergens. Patient instructed to hold oral antihistamines 7 days prior to testing. - Patient was also recommended to contact outside hotel sales manager to coordinate transfer of vials, if applicable, to our clin. - Allergen avoidance: If financially able to afford it, please purchase dust mite-proof mattress and pillow covers. Carpet should be vacuumed and sheets should be washed every week. Avoid humidifiers, but the patient can use air purifiers if desired. Remove stuffed animals from the bed. Wash hands and change clothes after being outdoors and before going to bed. Close windows during seasons when the patient is more symptomatic and when pollen counts that the patient is known to have sensitization to are high. - Medications: We recommended the antihistamine Cetirizine 10 mg daily and intranasal spray Flonase 2 sprays per nostril daily. We discussed the proper administration and side effects of intranasal medications. Trial normal saline sinus rinses, proper technique reviewed. 04/16/2025 Other chronic allergic conjunctivitis (ICD-10 - H10.45) See AR for treatment plan. 04/23/2025 Other allergic rhinitis (ICD-10 - J30.89) Pt reports h/o nasal congestion, nasal congetion and discharge, sneezing, nasal pruritus, and ocular pruritus, with sxs worsening in Spring around grass, trees, and cats. She currently uses cetirizine 10 mg PO PRN and Flonase with good sx relief. She was previously on SCIT with outside hotel sales manager from 04/2023 - 04/2024. Allergy skin prick testing was conducted to evaluate the patient's sensitivities to specific allergens. The procedure began with the selection of allergen extracts based on the patient's clinical history and reported symptoms. Following skin preparation, a drop of each allergen extract was placed on the patient's forearm. A sterile lancet was then utilized to create a small puncture through the droplet, allowing the allergen to penetrate the epidermis. The test sites were monitored for 15-20 minutes for the development of a local reaction. Positive reactions were characterized by the formation of wheals, measured against a negative control for assessment. Patient underwent SPT and ID testing today 04/23/2025 that was knowles-negative via SPT and positive for jax, birch, hickory, ragweed, and mite dpter via ID (positive control was positive/negative). - F/u in 2 weeks to discuss results 05/14/2025 Other chronic allergic conjunctivitis (ICD-10 - H10.45) See AR for treatment plan. 04/16/2025 Deviated nasal septum (ICD-10 - J34.2) She also c/o of deviated septum and notes difficulty breathing, onset ~2015 with recent exacerbation. Today, 04/16/2025, we discussed: - Patient recommended to schedule a consultation with ENT for additional w/u. 05/14/2025 Other allergic rhinitis (ICD-10 - J30.89) Moderately-controlled with Cetirizine 10 mg PO PRN + Flonase with good sx relief. Patient was on SCIT with outside hotel sales manager from 04/2023 - 04/2024. She is interested in transferring care to our clinic and is unsure if she will need new vials. We discussed the three different modalities for treating allergic rhinoconjunctivitis including allergen avoidance, medication management and immunotherapy. - Patient to return for SPT/ID testing to environmental allergens. Patient instructed to hold oral antihistamines 7 days prior to testing. - Patient was also recommended to contact outside hotel sales manager to coordinate transfer [facility] vials, if applicable[facility]. - Allergen avoidance: If financially able to afford it, please purchase dust mite-proof mattress and pillow covers. Carpet should be vacuumed and sheets should be washed every week. Avoid humidifiers, but the patient can use air purifiers if desired. Remove stuffed animals from the bed. Wash hands and change clothes after being outdoors and before going to bed. Close windows during seasons when the patient is more symptomatic and when pollen counts that the patient is known to have sensitization to are high. - Medications: We recommended the antihistamine Cetirizine 10 mg daily and intranasal spray Flonase 2 sprays per nostril daily. We discussed the proper administration and side effects of intranasal medications. Trial normal saline sinus rinses, proper technique reviewed. 04/23/2025 Other chronic allergic conjunctivitis (ICD-10 - H10.45) 05/14/2025 Deviated nasal septum (ICD-10 - J34.2) She also c/o of deviated septum and notes difficulty breathing, onset ~2015 with recent exacerbation. Today, 04/16/2025, we discussed: - Patient recommended to schedule a consultation with ENT for additional w/u. 04/16/2025 Other This note was transcribed by Korin Newman for Dr. Bartolome Farooq and will be completed within 7 days of date of service. LEVEL 4 Number and complexity of problems (moderate): 1 or more chronic illnesses with exacerbation, progression, or side effects of treatment - AR, AC Risks (moderate): -Prescription drug management- SCIT discussion 04/23/2025 Other This note was transcribed by Carolina Pinedo for Dr. Gabriela Nolan and will be completed within 7 days of date of service. 05/14/2025 Other This note was transcribed by Korin Newman for Dr. Bartolome Farooq and will be completed within 7 days of date of service. LEVEL 4 Number and complexity of problems (moderate): 1 or more chronic illnesses with exacerbation, progression, or side effects of treatment - AR, AC Risks (moderate): -Prescription drug management- SCIT discussion Plan Of Treatment Next Appt Details Provider Name:Bartolome Farooq, 03/2025 01:00:00 PM, [address], [place], [address], Insurance Providers Payer Name Payer Address Payer Phone Subscriber Number Group Number Insured Name Patient Relationship to Insured Coverage Start Date Coverage End Date [facility] [address] [place] [address] [id number] Jaz Lynch Self - patient is the insured Medical (General) History Medical History History ICD Code Cervical Radiculopathy Epicondylitis IBS Fibromyalgia Scoliosis Restless leg syndrome Hypothyroidism GERD Anxiety Depression PTSD Binge Eating Disorder Deviated Septum Surgical History Surgery Date(Month/Year) Deviated Septum Surgery 2015 Bariatric Surgery 2021 Shoulder surgery 2015 Shoulder surgery 2018
--- OUTSIDE RECORDS SUMMARY | 2025-06-03 14:35 | XMS_ITS | Clinical Summary ---
Author Organization [facility] Address [address] [facility] [address] [place] [address] Care Team Providers Care Art Psychotherapist Name Role Phone Namrata Dixon MD Primary Care Provider [phone] Allergies Active Allergy Reactions Criticality Noted Date [...] into each nostril twice daily. 0 Active pregabalin (Lyrica) 25 mg capsule Take [...] bedtime for pain score 1-3 (mild). Active clindamycin (Cleocin T) 1 % gel APPLY TO ENTIRE FACE TWICE A DAY AFTER BENZOYL PEROXIDE CLEANSER Active spironolactone (Aldactone) 100 mg tablet Take 100 mg by mouth once daily. Active albuterol 90 mcg/actuation inhaler Inhale 2 puffs every 6 (six) hours if needed for wheezing. Active ivermectin 1 % creamIndication s:Rosacea Apply topically once to twice daily to affected areas 60 g Active sulfacetamide sodium-sulfur 10-1 % cleanserIndicat ions:Rosacea Use to wash affected areas once to twice daily. 170.1 g Active ketoconazole (NIZOral) 2 % shampooIndicati ons:Seborrheic dermatitis Use to wash scalp daily as needed. May leave in for 3-5 minutes before rinsing out. 120 mL Active Hospital, Clinic, or Other Facility Administered Medication Ordered Dose Route Frequency Start Date End Date Status triamcinolone acetonide (Kenalog-40) injection 80 mgIndications:Sacroiliac joint pain 80 mg epid Once 05/07/2025 05/07/2025 Ended lidocaine PF (Xylocaine) 10 mg/mL (1 %) injection 10 mgIndications:Sacroiliac joint pain 10 mg Ifil Once 05/07/2025 05/07/2025 Ended bupivacaine PF (Marcaine) 0.25 % (2.5 mg/mL) injection 5 mgIndications:Sacroiliac joint pain 5 mg Ifil Once 05/07/2025 05/07/2025 Ended Active Problems Problem Noted Date Diagnosed Date Fibromyalgia 04/02/2025 Encounters Date Type Department Care Team Description 05/07/2025 10:00 AM EDT Procedure Visit [facility] [address] [place] [address] Bennett Nunez MD Sacroiliac joint pain (Primary Dx) 05/07/2025 Travel 05/07/2025 Telephone [facility] [address] [place] [address] Bennett Nunez MD Running late 04/15/2025 Results Follow-Up [facility] Dermatology [address] [place] [address] Jeni Pearce MD 04/11/2025 11:25 AM EDT - 04/11/2025 11:59 PM EDT Hospital Encounter [facility] Radiology [address] [place] [phone] Sacroiliac joint pain Discharge Disposition: Home or self care 04/11/2025 Travel 04/08/2025 10:30 AM EDT Office Visit [facility] [address] [place] [phone] Bennett uNnez MD Sacroiliac joint pain (Primary Dx); Fibromyalgia 04/08/2025 Travel 04/03/2025 1:20 PM EDT Office Visit [facility] [place] [address] [place] [phone] Jeni Pearce MD Rosacea (Primary Dx); Seborrheic dermatitis; Non-scarring hair loss; PCOS (polycystic ovarian syndrome) 04/02/2025 11:00 AM EDT Office Visit [facility] Rheumatology [address] [facility] [address] [place] [phone] Jasper Nava MD Fibromyalgia (Primary Dx) 04/02/2025 Travel from Last 3 Months Social History Tobacco Use Types Packs/Day Years Used Date Smoking Tobacco: Never Smokeless Tobacco: Never Tobacco Cessation:Counseling Given: Not Answered Alcohol Use Standard Drinks/Week Comments Not Currently 0 (1 standard drink = 0.6 oz pur e alcohol) Comments Unknown Sex and Gender Information Value Date Recorded Sex Assigned at Female 04/08/2025 9:56 AM EDT Legal Sex Female 1:16 PM EDT Gender Identity Female 04/08/2025 9:56 AM EDT Sexual Orientation Not on file Last Filed Vital Signs Vital Sign Reading Time Taken Comments Blood Pressure 118/76 05/07/2025 10:45 AM EDT Pulse 74 05/07/2025 10:45 AM EDT Temperature 35.8 C (96.5 F) 05/07/2025 10:22 AM EDT Respiratory Rate - - Oxygen Saturation 100% 04/02/2025 10:52 AM EDT Inhaled Oxygen Concentration - - Weight 82.6 kg (182 lb) 05/07/2025 10:22 AM EDT Height 160 cm (5' 3 ) 05/07/2025 10:22 AM EDT Body Mass Index 32.24 05/07/2025 10:22 AM EDT Plan of Treatment Upcoming Encounters Date Type Department Care Team (Late st Contact Info) Description 06/04/2025 10:45 AM EDT Office Visit [facility] Otolaryngology [address] [facility] 1st [place] [phone] Familia Mauro MD [address] [place] [phone] 06/19/2025 1:30 PM EDT Telemedicine [facility] [address] [place] [phone] Bennett Nunez MD [address] [place] [phone] 08/05/2025 1:00 PM EDT Clinical Support [facility] [address] [facility] [address] [place] [address] Margie Garcia LICSW [address] [facility] [address] [facility] [place] [address] 08/13/2025 11:30 AM EDT Office Visit [facility] [address] [facility] [address] [place] [address] Kati Murphy, BRANDON [address] [place] [address] 10/02/2025 11:00 AM EST Office Visit [facility] [place] [address] [place] [address] Jeni Pearce MD [address] [facility] [address] [place] [address] 11/24/2025 1:15 PM EST Office Visit [facility] Dermat[facility] [address] [place] [address] Yarelis Hassan MD [address] [place] [address] 04/02/2026 11:00 AM EDT Office Visit [facility] Rheumatology [address] [facility] [address] 3rd [place] [phone] Jasper Nava MD [address] [facility] [address] [place] [address] Health Maintenance Due Date Last Done Comments [...] season) 2024 Depression Screening 11/20/2024 Influenza Vaccine (#1) 2025 HIB Vaccines Aged Out No longer [...] Procedure Name Priority Date/Time Associated Diagnosis Comments AL INJECTION,SACROILIAC JOINT Routine 05/07/2025 7:17 AM EDT Sacroiliac joint pain XR SACROILIAC JOINTS 3+ VIEWS Routine 04/11/2025 11:51 AM EDT Sacroiliac joint pain CBC W/DIFF Routine 04/10/2025 1:33 PM EDT TESTOSTERONE, FREE AND TOTAL, MS Routine 04/10/2025 1:33 PM EDT PCOS (polycystic ovarian syndrome) SEX HORMONE BINDING GLOBULIN Routine 04/10/2025 1:33 PM EDT PCOS (polycystic ovarian syndrome) PROLACTIN Routine 04/10/2025 1:33 PM EDT PCOS (polycystic ovarian syndrome) LH Routine 04/10/2025 1:33 PM EDT PCOS (polycystic ovarian syndrome) FOLLICLE STIMULATING HORMONE Routine 04/10/2025 1:33 PM EDT PCOS (polycystic ovarian syndrome) DHEA-SULFATE Routine 04/10/2025 1:33 PM EDT PCOS (polycystic ovarian syndrome) 17-HYDROXYPROGESTERONE Routine 1:33 PM EDT PCOS (polycystic ovarian syndrome) FERRITIN Routine 04/10/2025 1:33 PM EDT Non-scarring hair loss ZINC Routine 04/10/2025 1:33 PM EDT Non-scarring hair loss HC ARTHROCENTESIS ASPIR&/INJ MAJOR JT/BURSA W/O US Routine 04/02/2025 12:30 PM EDT Fibromyalgia AL ARTHROCENTESIS ASPIR&/INJ MAJOR JT/BURSA W/O US Routine 04/02/2025 12:30 PM EDT Fibromyalgia from Last 3 Months Results * AL INJECTION,SACROILIAC JOINT (05/07/2025 7:17 AM EDT) Narrative Bennett Nunez MD - 05/07/2025 7:17 AM EDT Bennett Nunez MD 05/13/2025 7:18 AM Sacro Illiac Joint Injection on 05/07/2025 7:17 AM us Bennett Nunez MD IN CLINIC/BEDSIDE ORDERABLES Fi nal Result * XR SACROILIAC JOINTS 3+ VIEWS (04/11/2025 11:51 AM EDT) Anatomical Region Laterality Modality Sacroiliac joint, Pelvis Compute d Radiography 04/11/2025 3:36 PM EDT Impressions 04/11/2025 3:37 PM EDT No subarticular erosion, sclerosis, or ankylosis of sacroiliac joints. No acute fracture or dislocation. APPROVED BY STAFF RADIOLOGIST: Zi Patterson MD 04/11/2025 3:37 PM EDT Narrative 04/11/2025 3:37 PM EDT NAME: LUCY LYNCH : 1980 AGE: 44 years GENDER: Female ORD PHYS: BENNETT NUNEZ LOCATION: [facility] 04/11/2025 11:51 AM EDT IMG75 (XR SACROILIAC JOINTS 3+ VIEWS) [id number] HISTORY: sacroiliac pain TECHNIQUE: Sacroiliac joints 3 views COMPARISON: None FINDINGS: No acute fracture or dislocation. No subarticular erosion, sclerosis, or ankylosis of sacroiliac joints. Joint spaces are maintained. Ovoid calcification adjacent to the left superolateral acetabular margin, likely sequela of prior trauma. No radiopaque foreign body. No marked soft tissue swelling. Procedure Note Zi Patterson MD - 04/11/2025 NAME: LUCY LYNCH : 1980 AGE: 44 years GENDER: Female ORD PHYS: BENNETT NUNEZ LOCATION: [facility] 04/11/2025 11:51 AM EDT IMG75 (XR SACROILIAC JOINTS 3+ VIEWS) [id number] HISTORY: sacroiliac pain TECHNIQUE: Sacroiliac joints 3 views COMPARISON: None FINDINGS: No acute fracture or dislocation. No subarticular erosion, sclerosis, orankylosis of sacroiliac joints. Joint spaces are maintained. Ovoid calcification adjacent to the left superolateral acetabular margin,likely sequela of prior trauma. No radiopaque foreign body. No marked soft tissue swelling. IMPRESSION: No subarticular erosion, sclerosis, or ankylosis of sacroiliac joints. No acute fracture or dislocation. APPROVED BY STAFF RADIOLOGIST: Zi Patterson MD 04/11/2025 3:37 PM EDT Bennett Nunez MD IMG XR PROCEDURES Final Result * Testosterone, Free and Total, MS (04/10/2025 1:33 PM EDT) EXT TESTOSTERONE, TOTAL, MS 7 2 - 45 ng/dL [facility] Comment: For additional information, please refer to http://education.Queralt/faq/ [email or web address] (This link is being provided for informational/ educational purposes only.) This test was developed and its analytical performance characteristics have been determined by [facility] [place], [place]. It has not been cleared or approved by the U.S. Food and Drug Administration. This assay has been validated pursuant to the CLIA regulations and is used for clinical purposes. EXT TESTOSTERONE, FREE 0.8 0.1 - 6.4 pg/mL [facility] Comment: This test was developed and its analytical performance characteristics have been determined by [facility] [place], [place]. It has not been cleared or approved by the U.S. Food and Drug Administration. This assay has been validated pursuant to the CLIA regulations and is used for clinical purposes. Blood Venous blood specimen / Unknown 04/10/2025 1:33 PM EDT 04/10/2025 1:33 PM EDT Ailyn [facility] 04/15/2025 3:58 PM EDT PATIENT REFUSED SOME TESTING; PATIENT ENCOURAGED TO RETURN. Jeni Pearce MD LAB BLOOD ORDERABLES Final Res ult JUAN GLADYS [address] [facility] [place], [place] , [facility] [address] [place], [place] * Sex hormone binding globulin (04/10/2025 1:33 PM EDT) Pathologist [facility] EXT SEX HORMONE BINDING GLOBULIN 36 17 - 124 nmol/L [facility] [place] [employer] Blood Venous blood specimen / Unknown 04/10/2025 1:33 PM EDT 04/10/2025 1:33 PM EDT [facility] - 04/15/2025 3:58 PM EDT PATIENT REFUSED SOME TESTING; PATIENT ENCOURAGED TO RETURN. Jeni Pearce MD LAB BLOOD ORDERABLES Final Res ult Performing Organization Address City/[facility]/ZIP Co de Phone Number [facility] [address] [address], [facility] [place] [employer] [facility] [address] [place] [address] * 17-Hydroxyprogesterone (04/10/2025 1:33 PM EDT) Pathologist [facility] 17-HYDROXYPROGES TERONE 9 see note ng/dL [facility]/Alejandrina cano [facility] Comment: Unable to flag abnormal result(s), please refer to reference range(s) below: Adult Female Reference Ranges for 17-Hydroxyprogesterone: Pre-Menopausal Mid Follicular: 23 - 102 ng/dL Pre-Menopausal Surge: 67 - 349 ng/dL Pre-Menopausal Mid Luteal: 139 - 431 ng/dL Postmenopausal Phase: < or = 45 ng/dL Female Oral Stages: II - III Females: 18 - 220 ng/dL IV - V Females: 36 - 200 ng/dL Includes data from J Clin Endocrinol Metab. 1991;73:674-686; J Clin Endocrinol Metab. 1989;69;5277-5318; J Clin Endocrinol Metab. 1994;78:226-270. Pediatr Res 1988;23:525-529. MedLinePlus (accessed 05/05/14). This test was developed and its analytical performance characteristics have been determined by [facility] [place], [place]. It has not been cleared or approved by the U.S. Food and Drug Administration. This assay has been validated pursuant to the CLIA regulations and is used for clinical purposes. Blood Venous blood specimen / Unknown 04/10/2025 1:33 PM EDT 04/10/2025 1:33 PM EDT N[facility]ative [facility] 04/15/2025 3:58 PM EDT PATIENT REFUSED SOME TESTING; PATIENT ENCOURAGED TO RETURN. us Jeni Pearce MD LAB BLOOD ORDERABLES Final Res ult Performing Organization Address [facility] de Phone Number [address] , [facility]/[address] * Zinc (04/10/2025 1:33 PM EDT) [facility] Signature ZINC 80 60 - 130 mcg/dL [facility] Comment: This test was developed and its analytical performance characteristics have been determined by [facility] [place], [place]. It has not been cleared or approved by the U.S. Food and Drug Administration. This assay has been validated pursuant to the CLIA regulations and is used for clinical purposes. Blood Venous blood specimen / Unknown 04/10/2025 1:33 PM EDT 04/10/2025 1:33 PM EDT Narrative JUAN GLADYS - 04/15/2025 3:58 PM EDT PATIENT REFUSED SOME TESTING; PATIENT ENCOURAGED TO RETURN. us Jeni Pearce MD LAB BLOOD ORDERABLES Final Res ult Performing Organization Address [facility] Co de Phone Number [place] [phone] [place], [place] , [facility] [address] [facility] [place] [address] * Prolactin (04/10/2025 1:33 PM EDT) PROLACTIN 10.4 ng/mL [facility] [place] [employer] Comment: Reference Range Females Non- 3.0-30.0 10.0-209.0 Postmenopausal 2.0-20.0 Blood Venous blood specimen / Unknown 04/10/2025 1:33 PM EDT 04/10/2025 1:33 PM EDT Narrative [facility] - 04/15/2025 3:58 PM EDT PATIENT REFUSED SOME TESTING; PATIENT ENCOURAGED TO RETURN. Jeni Pearce MD LAB BLOOD ORDERABLES Final Res ult Performing Organization Address [facility] de Phone Number [address] [address], [employer] [place] [employer] [address] [place] [phone] * DHEA-sulfate (04/10/2025 1:33 PM EDT) Pathologist [facility] DHEA SULFATE 32 15 - 205 mcg/dL [facility] [place] [employer] Blood Venous blood specimen / Unknown 04/10/2025 1:33 PM EDT 04/10/2025 1:33 PM EDT Narrative [facility] - 04/15/2025 3:58 PM EDT PATIENT REFUSED SOME TESTING; PATIENT ENCOURAGED TO RETURN. Jeni Pearce MD LAB BLOOD ORDERABLES Final Res ult Performing Organization Address [facility] Co de Phone Number [address] [address], [employer] [place] [employer] [address] [place] [phone] * CBC and differential (04/10/2025 1:33 PM EDT) [facility] WHITE BLOOD CELL COUNT 9.7 3.8 - 10.8 Thousand/ uL [facility] [place] [employer] RED BLOOD CELL COUNT 4.40 3.80 - 5.10 Million/u L [facility] [place] [facility] HEMOGLOBIN 13.7 11.7 - 15.5 g/dL [facility] [place] [employer] HEMATOCRIT 41.7 35.0 - 45.0 % [facility] MCV 94.8 80.0 - 100.0 fL [facility] [place] [employer] MCH 31.1 27.0 - 33.0 pg [facility] [place] [employer] MCHC 32.9 32.0 - 36.0 g/dL [facility] [place] [employer] Comment: For adults, a slight decrease in the calculated MCHC value (in the range of 30 to 32 g/dL) is most likely not clinically significant; however, it should be interpreted with caution in correlation with other red cell parameters and the patient's clinical condition. RDW 12.0 11.0 - 15.0 % [facility] [place] [employer] Platelets 324 140 - 400 Thousand/ uL [facility] [place] [employer] MPV 10.9 7.5 - 12.5 fL [facility] [place] [employer] ABSOLUTE NEUTROPHILS 5,966 1,500 - 7,800 cells/uL [facility] [place] [facility] ABSOLUTE LYMPHOCYTES 2,745 850 - 3,900 cells/uL [facility] [place] [employer] ABSOLUTE MONOCYTES 728 200 - 950 cells/uL [facility] [place] [employer] ABSOLUTE EOSINOPHILS 97 15 - 500 cells/uL [facility] [place] [employer] ABSOLUTE BASOPHILS 165 0 - 200 cells/uL [facility] [place] [employer] NEUTROPHILS 61.5 % [facility] [place] [employer] LYMPHOCYTES 28.3 % [facility] [place] [employer] MONOCYTES 7.5 % [facility] [place] [employer] EOSINOPHILS 1.0 % [facility] [place] [employer] BASOPHILS 1.7 % [facility] [employer] [place] [employer] 04/10/2025 1:33 PM EDT 04/10/2025 1:33 PM EDT Narrative [facility] - 04/15/2025 3:58 PM EDT PATIENT REFUSED SOME TESTING; PATIENT ENCOURAGED TO RETURN. us Jeni Pearce MD LAB BLOOD ORDERABLES Final Res ult Performing Organization Address [facility] Co de Phone Number [email or web address] [address], [place] [address], [employer] [place] [employer] [address] [place] [address] * Luteinizing hormone (04/10/2025 1:33 PM EDT) LH 10.1 mIU/mL [facility] [place] [employer] Comment: Reference Range Follicular Phase 1.9-12.5 Mid-Cycle Peak 8.7-76.3 Luteal Phase 0.5-16.9 Postmenopausal 10.0-54.7 Blood Venous blood specimen / Unknown 04/10/2025 1:33 PM EDT 04/10/2025 1:33 PM EDT Narrative [facility] - 04/15/2025 3:58 PM EDT PATIENT REFUSED SOME TESTING; PATIENT ENCOURAGED TO RETURN. Jeni Pearce MD LAB BLOOD ORDERABLES Final Res ult Performing Organization Address [facility] de Phone Number [email or web address] [address] [place] [address], [place] [address], [employer] [place] [employer] [address] [place] [address] * Follicle Stimulating Hormone (04/10/2025 1:33 PM EDT) FSH 8.2 mIU/mL [facility] [place] [employer] Comment: Reference Range Follicular Phase 2.5-10.2 Mid-cycle Peak 3.1-17.7 Luteal Phase 1.5- 9.1 Postmenopausal 23.0-116.3 Blood Venous blood specimen / Unknown 04/10/2025 1:33 PM EDT 04/10/2025 1:33 PM EDT Narrative [facility] - 04/15/2025 3:58 PM EDT PATIENT REFUSED SOME TESTING; PATIENT ENCOURAGED TO RETURN. Jeni Pearce MD LAB BLOOD ORDERABLES Final Res ult Performing Organization Address [facility] Co de Phone Number [email or web address] [address] [place] [address], [place] [address], [facility] [place] [employer] [address] [place] [address] * Ferritin (04/10/2025 1:33 PM EDT) FERRITIN 55 16 - 232 ng/mL [facility] [place] [employer] Blood Venous blood specimen / Unknown 04/10/2025 1:33 PM EDT 04/10/2025 1:33 PM EDT Narrative [facility] - 04/15/2025 3:58 PM EDT PATIENT REFUSED SOME TESTING; PATIENT ENCOURAGED TO RETURN. us Jeni Pearce MD LAB BLOOD ORDERABLES Final Res ult [facility] [address] [facility] [address] [facility], [place] [address], [facility] [place] [employer] [address] [place] [address] * AL ARTHROCENTESIS ASPIR&/INJ MAJOR JT/BURSA W/O US, HC ARTHROCENTESIS ASPIR&/INJ MAJOR JT/BURSA W/O US (04/02/2025 12:30 PM EDT) Jasper Hope MD - 04/02/2025 12:30 PM EDT Jasper Nava MD 04/02/2025 12:31 PM Large Joint Injection/Arthrocentesis: R glenohumeral on 04/02/2025 12:30 PM Details: 25 G needle Medications: 40 mg methylPREDNISolone acetate 40 mg/mL us Jasper Nava MD IN CLINIC/BEDSIDE ORDERABLES F inal Result from Last [address] [place] [address] [place] [address] ACO Care Teams Art Psychotherapist Relationship Specialty Start Date End Date Namrata Dixon MD [address] [place] [id number] PCP - General Data Processing Systems Consultant 03/24/25
--- OUTSIDE RECORDS SUMMARY | 2025-06-03 14:35 | XMS_ITS | Clinical Summary ---
Author Organization [facility] Address [address] [place] [address] Care Team Providers Care Last Repairer Name Role Phone Unavailable Primary Care Provider [...] 2011 Breast Cancer Screening 2021 CoVid-19 Vaccine (2023-2 5 season) 2024 Influenza (Seasonal) 06/20/2025 HIB [...] patient's age to complete this topic Insurance [employer] logoPR[facility] MET TechSELECT MEDICAL [facility]
--- OUTSIDE RECORDS SUMMARY | 2025-06-03 14:36 | XMS_ITS | Clinical Summary ---
Author Organization [facility] Address [address] [place] [address] Care Team Providers Care Enterprise Manager Name Role Phone Namrata Dixon MD Primary Care Provider [phone] Source Comments PLEASE NOTE, if this patient [...] pain clinic and Rheum here in the [place] area. Referrals placed. Obesity without serious comorbidity 03/25/2025 Assessment & Plan (03/25/2025 2:21 PM EDT): Current BMI 32. Patient hoping to reestablish with a weight clinic here in the [facility]. She underwent bariatric surgery several years ago outside of [place], and continues on a multivitamin and Ca/Vit [...] and a pain clinic here in the [facility]. Referrals placed. Sacroiliac joint dysfunction 03/25/2025 Assessment & Plan (03/25/2025 2:21 PM EDT): Patient had tremendous benefit working with her prior pain clinic which was providing cortisone injections. She is hoping to newly establish with a pain clinic here in the [facility] where she can continue these treatments. Reviewed the importance of getting outside records and CD with any prior imaging in preparation for new appointments. PCOS (polycystic ovarian syndrome) 03/25/2025 Assessment & Plan (03/25/2025 2:21 PM EDT): Patient reports a history of PCOS for which she is on Metformin 500mg BID. Continues to have very irregular periods. Was previously following with OBGYN in [place], all paps have been reportedly normal with [...] Description 03/20/2025 1:30 PM EDT Office Visit [facility] [address] [place] [address] Namrata Dixon MD 03/20/2025 Travel from Last 3 Months Family [...] 0 06/24/2024 Food Insecurity Answer Date Recorded Within the past 12 months, y ou worried that your food would run out before you got money to buy more. 2 03/20/2025 Transportation Needs Answer Date Record ed In the past 12 months, has l ack of transportation kept you from medical appointments, meetings, work or from getting things needed for daily living? 2 03/20/2025 Housing Stability Answer Date Recorded What is your living situation today? 2 03/20/2025 Safety and Environment Answer Date Nabil rded How often does anyone, inclu ding family and friends, physically hurt you? 1 03/20/2025 Utilities Answer Date Recorded In the past 12 months has th e [place], gas, oil, or water Present threatened to shut off services in your home? 1 03/20/2025 Employment Answer Date Recorded Stress [...] 88 03/20/2025 1:11 PM EDT Temperature 37.1 C (98.7 F) 03/20/2025 1:11 PM EDT Respiratory Rate - - Oxygen Saturation 97% [...] series) 0 Breast Cancer Screening (Mammogram) 2021 [id number] ( - season) 2024 Alcohol and Drug Screen 11/20/2024 Depression Monitoring 06/20/2025 03/20/2025 Imm-Influenza (#1) 2025 Cervical Cancer Screening 11/15/2025 Pap + HPV [...] PAP SMEAR (11/15/2024 12:00 AM EST) Swab us Provider [facility] - PATHOLOGY AND CYTOLOGY AMB ULATORY Final Result from Last 3 Months or Most Recently Relevant to Health Maintenance Insurance [employer] Member Subscriber Plan / Payer (Ef fective 2024-Present) Name:aJz Lynch Relation to Subscriber:Self Name:Jaz Lynch Payer ID:[id number] Group ID:Not on file Type:Medicaid Address: [address] [address] [place] [address] Care Teams Enterprise Manager Relationship Specialty Start Date End Date Namrata Dixon MD [address] [place] [id number] PCP - General Internal Medicine 03/20/25
== END 2025-06-03 14:14 | disposition home or self-care (01) ==
LOC: HO.HBST 13:13
PROVIDERS: PCP Internal Medicine; Visit Provider Counselor Mental Health
DX: F39 Unspecified mood [affective] disorder (principal); F41.1 Generalized anxiety disorder
CPT/HCPCS: 90837

== ENCOUNTER 2025-07-01 13:00 | Outpatient (AMB) | payer OTHER, SELFPAY ==
--- NOTE | 2025-07-01 13:00 | A.OFFWM_ITS ---
Intake Intake Visit Reasons: VIDEO PO LSG 02/06/22 Allergies cat dander (CAT DANDER) Allergy (Mild, Verified 01/02/25 12:56) EYES- TEAR, ITCHY, face swells dog dander (DOG DANDER) Allergy (Mild, Verified 01/02/25 12:56) EYES- TEAR, ITCHY, hives duloxetine (From CYMBALTA) Adverse Reaction (Intermediate, Verified 01/02/25 12:56) VAGINAL BLEEDING PFSH Medical History Bilateral knee pain Sacroiliac pain Positive DANIELE (antinuclear antibody) Refused influenza vaccine PTSD (post-traumatic stress disorder) Insomnia PONV (postoperative nausea and vomiting) Gastric ulcer Cholelithiasis Sacroiliitis Spondylosis of lumbar region without myelopathy or radiculopathy Scoliosis Goiter Restless leg syndrome ADHD (attention deficit hyperactivity disorder) Anxiety OCD (obsessive compulsive disorder) Hypertension GERD (gastroesophageal reflux disease) Vitamin D deficiency PCOS (polycystic ovarian syndrome) Body mass index [BMI]40.0-44.9, adult Irritable bowel syndrome with diarrhea Environmental and seasonal allergies Breast cancer screening by mammogram Dyslipidemia Gastritis Morbid obesity Hirsutism Telogen effluvium Heartburn Degenerative disc disease, lumbar Fibromyalgia Bipolar disorder Rosacea Acquired hypothyroidism Surgical History S/P laparoscopic sleeve gastrectomy Hx of bariatric surgery Hx of shoulder surgery Hx of cholecystectomy Hx of colonoscopy Miscarriage History of nasal surgery History of rotator cuff surgery Family History Father Diabetes mellitus Mother OCD (obsessive compulsive disorder) EITAN (generalized anxiety disorder) HTN (hypertension) Cancer Cervical cancer Family/Other FH: mental illness Maternal Grandmother EITAN (generalized anxiety disorder) Glaucoma Mental health disorder Maternal Grandfather Alzheimer disease Maternal Aunt Hypothyroidism Mental health disorder Paternal Grandmother Unknown family medical history Paternal Grandfather Unknown family medical history Sister Hypothyroidism Paternal Aunt Substance use disorder Maternal Uncle Substance use disorder Social History Household Members Other:: brother Housing: Apartment Are you a primary child care associate teacher to a significant other at home: No Do you presently have visiting nurse or other home services: No Alcohol intake: never Patient Tobacco Use Status: Former Tobacco user Tobacco use type: Cigarette Cigarettes Per Day: 20 Years Smoked: 3 e-Cigarette/Vaping Use: Never Used service: No Current occupational status: disabled Cognitive needs: No Hearing needs: No Vision needs: Yes Behavioral Health Assessment Weight Management Therapy Therapy Notes Details Subjective: Patient reports ongoing emotional ups and downs, primarily related to interpersonal challenges with her partner during a recent trip. Despite the emotional stress, she reports feeling physically well and is pleased with her recent weight loss, currently at 163 lbs. She also shared ongoing concerns related to PCOS and its impact on her mood and hormonal balance. Objective: Patient presented for a follow-up Telehealth session. She was on time, oriented ?3, and actively engaged. CBT and CPT-based interventions were used to address emotional regulation and interpersonal challenges: * Reflective listening was used to validate her emotional experiences and promote self-awareness. * Explored the connection between thoughts, emotions, and behaviors, particularly related to recent partner conflict. * Practiced cognitive reframing techniques to help shift unhelpful thought patterns and reduce emotional reactivity. * Worked on enhancing the mind-body connection, emphasizing how emotional and physical symptoms (e.g., mood swings, PCOS-related discomfort) can interact. * Provided psychoeducation about the mind-body connection and hormonal influences on mental health. * Shared information on a psychiatric provider specializing in women?s mental health, particularly relevant to PCOS ([facility] Dr Javier) * Recommended Dr. Gwendolyn Conteh?s podcast as a resource for education and empowerment around hormonal health and emotional wellness. * Encouraged behavioral activation and engagement in meaningful self-care activities to support mood stabilization. Assessment/Response: * Mental status: Patient appeared stable and was oriented to person, place, and time. Mood was improved today; affect was congruent and engaged. Thought process was logical and organized. No signs of cognitive impairment or distress. * Risk reported/identified: None Patient was receptive, showed good insight, and expressed interest in exploring the resources provided. Assessment & Plan Assessment & Plan (1) Unspecified mood [affective] disorder: Code(s): F39 - Unspecified mood [affective] disorder (2) Generalized anxiety disorder: Code(s): F41.1 - Generalized anxiety disorder Plan Continue bi-weekly Telehealth sessions focusing on emotional regulation, assertiveness, and hormonal health education through a CBT/CPT lens. Follow up on use of outside resources and assess impact. * Next appointment: 07/16 at 2:00 PM, Telehealth. Telehealth Telehealth Telehealth Platform: [email or web address] Location of provider rendering services: other (Home office. [place], [place]) Location of patient: address on file Patient Identification confirmed using: Name, : Yes Patient verbally consented to treatment: Yes Patient verbally consented to billing insurance company: Yes Patient informed of any privacy concerns related to visit: Yes Minutes spent on Phone/Video with Pt.: 60 Coding Level of Care Code Established Pt Tele Psytx >53 mins (14726) Patient Type Established Diagnoses Unspecified mood [affective] disorder F39 Generalized anxiety disorder F41.1 Time Spent (min) 60
--- OUTSIDE RECORDS SUMMARY | 2025-07-01 14:32 | XMS_ITS | Clinical Summary ---
Author Organization [facility] Address [address] [facility] [address] [place] [address] Care Team Providers Care Branch Assistant Name Role Phone Namrata Dixon MD Primary Care Provider [phone] Allergies Active Allergy Reactions Criticality Noted Date [...] minutes before rinsing out. 120 mL Active Vraylar 1.5 mg capsule Take 1.5 mg by mouth once daily. Active Active Problems Problem Noted Date Diagnosed Date Fibromyalgia 04/02/2025 Encounters Date Type Department Care Team Description 06/19/2025 1:30 PM EDT Telemedicine [facility] Pain [address] [place] [phone] Bennett Nunez MD Sacroiliac joint pain (Primary Dx) 06/12/[address] [address] Destiney Ventura RN Pre Visit Intake 06/04/2025 10:45 AM EDT Office Visit [facility] Otolaryngology [address] [place] [address], 1st [place] [address] Familia Mauro MD Chronic rhinitis (Primary Dx); Hypertrophy of nasal turbinates; Nasal valve stenosis; Deviated nasal septum; Nasal septal perforation 06/04/2025 Travel 05/07/2025 10:00 AM EDT Procedure Visit [place] [phone] Bennett Nunez MD Sacroiliac joint pain (Primary Dx) 05/07/2025 Travel 05/07/2025 Telephone [place] [phone] Bennett Nunez MD Running late 04/15/2025 Results Follow-Up [facility] Dermatology [address] [place] [address] Jeni Pearce MD 04/11/2025 11:25 AM EDT - 04/11/2025 11:59 PM EDT Hospital Encounter [facility] Radiology [address] [place] [address] Sacroiliac joint pain Discharge Disposition: Home or self care 04/11/2025 Travel 04/08/2025 10:30 AM EDT Office Visit [facility] Pain [address] [place] [address] Bennett Nunez MD Sacroiliac joint pain (Primary Dx); Fibromyalgia 04/08/2025 Travel 04/03/2025 1:20 PM EDT Office Visit [facility] Dermat[facility] [address] [place] [address] Jeni Pearce MD Rosacea (Primary Dx); Seborrheic dermatitis; Non-scarring hair loss; PCOS (polycystic ovarian syndrome) 04/02/2025 11:00 AM EDT Office Visit [facility] Rheumatology [address] [facility] [address] [place] [address] Jasper Nava MD Fibromyalgia (Primary Dx) 04/02/2025 Travel from Last 3 Months Family History Medical History Relation Name Comments Diabetes Father Ramesh Hypertension Father Ramesh Diabetes Mother Lynda Hypertension Mother Lynda Cancer Mother's Sister 1 Laurie Cancer Mother's Sister 2 Kathie Migraines Mother's Sister 3 Cecille Thyroid disease Mother's Sister 3 Cecille Thyroid disease Sister Prerna Relation Name Status Comments Father Ramesh Alive Mother Lynda Alive Mother's Sister 1 Laurie Alive Mother's Sister 2 Kathie Alive Mother's Sister 3 Cecille Alive Sister Prerna Alive Social History Tobacco Use Types Packs/Day Years Used Date Smoking Tobacco: Never Smokeless Tobacco: Never Tobacco Cessation:Counseling Given: Not Answered Alcohol Use Standard Drinks/Week Comments Never 0 (1 standard drink = 0.6 oz [...] Care Team (Late st Contact Info) Description 08/05/2025 1:00 PM EDT Clinical Support [facility] [address] [facility] [address] [place] [address] Margie Garcia LICSW 91 [facility] [address] [facility] [place] [address] 08/13/2025 11:30 AM EDT Office Visit [facility] [address] [facility] [address] [place] [address] Kati Murphy, BRANDON [address] [place] [address] 10/02/2025 11:00 AM EST Office Visit [facility] Dermat[facility] [address] [place] [address] Jeni Pearce MD 800 [facility] [address] [place] [address] 11/24/2025 1:15 PM EST Office Visit [facility] Dermatology [address] [place] [address] Yarelis Hassan MD [address] [place] [address] 04/02/2026 11:00 AM EDT Office Visit [facility] Rheumatology [address] [facility] [address] 3rd [place] [phone] Jasper Nava MD 800 [facility] [address] [place] [address] Health Maintenance Due Date Last Done Comments HIV Screening 1981 Lipid Panel 1981 MMR Vaccines (1 of 1 - Stand beatriz series) 1982 Varicella Vaccines (1 of 2 - 13+ 2-dose series) 1994 Diabetes Screening 1999 Hepatitis C Screening 1999 DTaP/Tdap/Td Vaccines (1 - Tdap) 2000 Hepatitis B Vaccines (1 of 3 - 19+ 3-dose series) 2000 Pap Smear 2002 HPV Vaccines (1 - 3-dose SCD M series) 2008 Cervical Cancer Screening 2011 HPV/Cotest 2011 Mammogram 2021 COVID-19 Vaccine ( - 2023-2 5 season) 2024 Depression Screening [...] Procedure Name Priority Date/Time Associated Diagnosis Comments TN INJECTION,SACROILIAC JOINT Routine 05/07/2025 7:17 AM EDT [...] US Routine 04/02/2025 12:30 PM EDT Fibromyalgia TN ARTHROCENTESIS ASPIR&/INJ MAJOR JT/BURSA W/O US Routine 04/02/2025 12:30 PM EDT Fibromyalgia from Last 3 Months Results * TN INJECTION,SACROILIAC JOINT (05/07/2025 7:17 AM EDT) Narrative [...] GENDER: Female ORD PHYS: BENNETT NUNEZ LOCATION: [facility] 04/11/2025 11:51 AM EDT IMG75 (XR SACROILIAC JOINTS 3+ VIEWS) [id number] HISTORY: sacroiliac pain TECHNIQUE: Sacroiliac joints 3 [...] GENDER: Female ORD PHYS: BENNETT NUNEZ LOCATION: [facility] 04/11/2025 11:51 AM EDT IMG75 (XR SACROILIAC JOINTS 3+ VIEWS) [id number] HISTORY: sacroiliac pain TECHNIQUE: Sacroiliac joints 3 [...] TOTAL, MS 7 2 - 45 ng/dL [employer] Comment: For additional information, please refer to http://education.[employer]/faq/ [email or web address] (This link is being provided for informational/ educational purposes only.) This test was developed and its analytical performance characteristics have been determined by [employer] [place], [place]. It has not been cleared or approved by the U.S. Food and Drug Administration. This assay has been validated pursuant to the CLIA regulations and is used for clinical purposes. EXT TESTOSTERONE, FREE 0.8 0.1 - 6.4 pg/mL [employer] Comment: This test was developed and its analytical performance characteristics have been determined by [employer] [place]. It has not been cleared or approved by the U.S. Food and Drug Administration. This assay has been validated pursuant to the CLIA regulations and is used for clinical purposes. Blood Venous blood specimen / Unknown 04/10/2025 1:33 PM EDT 04/10/2025 1:33 PM EDT Ailyn [facility] 04/15/2025 3:58 PM EDT PATIENT REFUSED SOME TESTING; PATIENT ENCOURAGED TO RETURN. us Jeni Pearce MD LAB BLOOD ORDERABLES Final Res ult JUAN [place] [address] [facility] [place], [place] , [facility]/Julissa [facility] [address] [place], [place] * Sex hormone binding globulin (04/10/2025 1:33 PM EDT) Pathologist [facility] EXT SEX HORMONE BINDING GLOBULIN 36 17 - 124 nmol/L [employer] [place] [facility] Blood Venous blood specimen / Unknown 04/10/2025 1:33 PM EDT 04/10/2025 1:33 PM EDT Narrative [facility] - 04/15/2025 3:58 PM EDT PATIENT REFUSED SOME TESTING; PATIENT ENCOURAGED TO RETURN. Jeni Pearce MD LAB BLOOD ORDERABLES Final Res ult Performing Organization Address City/[facility]/ZIP Co de Phone Number [facility] [address] [address], [employer] [place] [facility] [address] [place] [address] * 17-Hydroxyprogesterone (04/10/2025 1:33 PM EDT) Pathologist [facility] 17-HYDROXYPROGES TERONE 9 see note ng/dL [facility]/Alejandrina cano [facility] Comment: Unable to flag abnormal [...] Endocrinol Metab. 1991;73:674-686; J Clin Endocrinol Metab. 1989;69;6601-2832; J Clin Endocrinol Metab. 1994;78:226-270. Pediatr Res 1988;23:525-529. MedLinePlus (accessed 05/05/14). This test was developed and its analytical performance characteristics have been determined by [employer] [place]. It has not been cleared or approved by the U.S. Food and Drug Administration. This assay has been validated pursuant to the CLIA regulations and is used for clinical purposes. Blood Venous blood specimen / Unknown 04/10/2025 1:33 PM EDT 04/10/2025 1:33 PM EDT Narrative [facility] [place] - 04/15/2025 3:58 PM EDT PATIENT REFUSED SOME TESTING; PATIENT ENCOURAGED TO RETURN. Jeni Pearce MD LAB BLOOD ORDERABLES Final Res ult Performing Organization Address [facility] de Phone Number JUAN [address] , [employer]/[address] [place], [place] * Zinc (04/10/2025 1:33 PM EDT) [facility] Signature ZINC 80 60 - 130 mcg/dL [employer] Comment: This test was developed and its analytical performance characteristics have been determined by [employer] [place]. It has not been cleared or approved by the U.S. Food and Drug Administration. This assay has been validated pursuant to the CLIA regulations and is used for clinical purposes. Blood Venous blood specimen / Unknown 04/10/2025 1:33 PM EDT 04/10/2025 1:33 PM EDT Narrative [facility] [place] - 04/15/2025 3:58 PM EDT PATIENT REFUSED SOME TESTING; PATIENT ENCOURAGED TO RETURN. us Jeni Pearce MD LAB BLOOD ORDERABLES Final Res ult Performing Organization Address [facility] Co de Phone Number [facility] [address] [place], [place] , [employer]/[address] [place] [address] * Prolactin (04/10/2025 1:33 PM EDT) PROLACTIN 10.4 ng/mL [facility] [place] [facility] Comment: Reference Range Females Non- 3.0-30.0 10.0-209.0 Postmenopausal 2.0-20.0 Blood Venous blood specimen / Unknown 04/10/2025 1:33 PM EDT 04/10/2025 1:33 PM EDT Narrative [facility] - 04/15/2025 3:58 PM EDT PATIENT REFUSED SOME TESTING; PATIENT ENCOURAGED TO RETURN. us Jeni Pearce MD LAB BLOOD ORDERABLES Final Res ult Performing Organization Address [facility] Co de Phone Number [facility] [address] [place] [address], [employer] [place] [facility] [address] [place] [phone] * DHEA-sulfate (04/10/2025 1:33 PM EDT) Pathologist [facility] DHEA SULFATE 32 15 - 205 mcg/dL [employer] [place] [facility] Blood Venous blood specimen / Unknown 04/10/2025 1:33 PM EDT 04/10/2025 1:33 PM EDT Narrative [facility] - 04/15/2025 3:58 PM EDT PATIENT REFUSED SOME TESTING; PATIENT ENCOURAGED TO RETURN. Jeni Pearce MD LAB BLOOD ORDERABLES Final Res ult Performing Organization Address [facility] Co de Phone Number [address] [address], [employer] [place] [facility] [address] [place] [phone] * CBC and differential (04/10/2025 1:33 PM EDT) Pathologist [facility] WHITE BLOOD CELL COUNT 9.7 3.8 - 10.8 Thousand/ uL [employer] RED BLOOD CELL COUNT 4.40 3.80 - 5.10 Million/u L [facility] [place] [facility] HEMOGLOBIN 13.7 11.7 - 15.5 g/dL [facility] [place] [facility] HEMATOCRIT 41.7 35.0 - 45.0 % [facility] MCV 94.8 80.0 - 100.0 fL [employer] [facility] MCH 31.1 27.0 - 33.0 pg [facility] MCHC 32.9 32.0 - 36.0 g/dL [facility] Comment: For adults, a slight decrease in the calculated MCHC value (in the range of 30 to 32 g/dL) is most likely not clinically significant; however, it should be interpreted with caution in correlation with other red cell parameters and the patient's clinical condition. RDW 12.0 11.0 - 15.0 % [facility] [place] [facility] Platelets 324 140 - 400 Thousand/ uL [employer] [facility] MPV 10.9 7.5 - 12.5 fL [employer] [place] [facility] ABSOLUTE NEUTROPHILS 5,966 1,500 - 7,800 cells/uL [facility] ABSOLUTE LYMPHOCYTES 2,745 850 - 3,900 cells/uL [facility] [place] [facility] ABSOLUTE MONOCYTES 728 200 - 950 cells/uL [facility] [place] [facility] ABSOLUTE EOSINOPHILS 97 15 - 500 cells/uL [facility] [place] [facility] ABSOLUTE BASOPHILS 165 0 - 200 cells/uL [facility] [place] [facility] NEUTROPHILS 61.5 % [facility] [place] [facility] LYMPHOCYTES 28.3 % [facility] MONOCYTES 7.5 % [facility] [place] [facility] EOSINOPHILS 1.0 % [facility] [place] [facility] BASOPHILS 1.7 % [facility] [place] [facility] 04/10/2025 1:33 PM EDT 04/10/2025 1:33 PM EDT Narrative [facility] - 04/15/2025 3:58 PM EDT PATIENT REFUSED SOME TESTING; PATIENT ENCOURAGED TO RETURN. us Jeni Pearce MD LAB BLOOD ORDERABLES Final Res ult Performing Organization Address [facility] Co de Phone Number [employer] [address], [place] [address], [employer] [place] [facility] [address] [place] [address] * Luteinizing hormone (04/10/2025 1:33 PM EDT) LH 10.1 mIU/mL [employer] [place] [facility] Comment: Reference Range Follicular Phase 1.9-12.5 Mid-Cycle Peak 8.7-76.3 Luteal Phase 0.5-16.9 Postmenopausal 10.0-54.7 Blood Venous blood specimen / Unknown 04/10/2025 1:33 PM EDT 04/10/2025 1:33 PM EDT Narrative [facility] - 04/15/2025 3:58 PM EDT PATIENT REFUSED SOME TESTING; PATIENT ENCOURAGED TO RETURN. Jeni Pearce MD LAB BLOOD ORDERABLES Final Res ult Performing Organization Address [facility] de Phone Number [employer] [address] [place] [address], [employer] [place] [facility] [address] [place] [address] * Follicle Stimulating Hormone (04/10/2025 1:33 PM EDT) FSH 8.2 mIU/mL [facility] Comment: Reference Range Follicular Phase 2.5-10.2 Mid-cycle Peak 3.1-17.7 Luteal Phase 1.5- 9.1 Postmenopausal 23.0-116.3 Blood Venous blood specimen / Unknown 04/10/2025 1:33 PM EDT 04/10/2025 1:33 PM EDT Narrative [facility] - 04/15/2025 3:58 PM EDT PATIENT REFUSED SOME TESTING; PATIENT ENCOURAGED TO RETURN. Jeni Pearce MD LAB BLOOD ORDERABLES Final Res ult Performing Organization Address [facility] Co de Phone Number [address] [address], [employer] [facility] [address] [place] [address] * Ferritin (04/10/2025 1:33 PM EDT) FERRITIN 55 16 - 232 ng/mL [employer] [place] [facility] Blood Venous blood specimen / Unknown 04/10/2025 1:33 PM EDT 04/10/2025 1:33 PM EDT Narrative [facility] - 04/15/2025 3:58 PM EDT PATIENT REFUSED SOME TESTING; PATIENT ENCOURAGED TO RETURN. us Jeni Pearce MD LAB BLOOD ORDERABLES Final Res ult [address], [place] [address], [employer] [place] [employer] [address] [place] [phone] * [place] ARTHROCENTESIS ASPIR&/INJ MAJOR JT/BURSA W/O US, HC [...] inal Result from Last 3 Months Insurance ACO Care Teams Branch Assistant Relationship Specialty Start Date End Date Namrata Dixon MD [address] [place] [phone] PCP - General Management Accounts Manager 03/24/25
--- OUTSIDE RECORDS SUMMARY | 2025-07-01 14:32 | XMS_ITS | Clinical Summary ---
Author Organization [facility] Address [address] [place] [address] Care Team Providers Care Travel Registered Nurse Pacu Name Role Phone Namrata Dixon MD Primary Care Provider [phone] Source Comments PLEASE NOTE, if this patient [...] times daily with a meal 5 Active medroxyPROGEST ERone (PROVERA) 10 mg tablet See Admin Instructions 5 Active levothyroxine 50 mcg tablet Take 50 mcg by mouth once daily 5 Active VIIBRYD 10 mg tab Take 1 Tablet by mouth once daily 5 Active ivermectin 1 % crea APPLY [...] by mouth once daily 5 Active calcium carbonate-yassine min D3 250 mg-3.125 mcg (125 unit) tab Take 1 Tablet by mouth 2 (two) times daily 4 Active alclometasone (ACLOVATE) 0.05 % cream APPLY TO HANDS TWICE A DAY NEEDED FOR FLARES. DECREASE SYMPTOMS IMPROVE 4 Active pregabalin (LYRICA) 25 mg capsule Take 1 Capsule by mouth 2 (two) times daily. Max Daily Amount: 50 mg 60 Capsule 5 Active pregabalin (LYRICA) 25 mg capsule TAKE ONE TALBET (25 MG) ORALLY 2 TIMES A DAY 5 025 Discontin ued(Reord er (E-Cancel Not Sent)) Active Problems Problem Noted Date Diagnosed Date Scoliosis 03/25/2025 Assessment & Plan (03/25/2025 2:21 PM EDT): Patient had tremendous benefit working with her prior pain clinic which was providing cortisone injections, and she was also following closely with Rheum who was prescribing Lyrica. Working on getting newly established with both pain clinic and Rheum here in the [facility]. Referrals placed. Obesity without serious comorbidity 03/25/2025 Assessment & Plan (03/25/2025 2:21 PM EDT): Current BMI 32. Patient hoping to reestablish with a weight clinic here in the [facility]. She underwent bariatric surgery several years ago outside of [place], and continues on a multivitamin and Ca/Vit [...] and a pain clinic here in the [facility]. Referrals placed. Sacroiliac joint dysfunction 03/25/2025 Assessment & Plan (03/25/2025 2:21 PM EDT): Patient had tremendous benefit working with her prior pain clinic which was providing cortisone injections. She is hoping to newly establish with a pain clinic here in the [facility] where she can continue these treatments. Reviewed the importance of getting outside records and CD with any prior imaging in preparation for new appointments. PCOS (polycystic ovarian syndrome) 03/25/2025 Assessment & Plan (03/25/2025 2:21 PM EDT): Patient reports a history of PCOS for which she is on Metformin 500mg BID. Continues to have very irregular periods. Was previously following with OBGYN in [place], all paps have been reportedly normal with [...] in the past (included on med list). Family History Medical History Relation Name Comments [...] the past 12 months has th e electric, gas, oil, or water [employer] threatened to shut off services in your [...] series) 0 Breast Cancer Screening (Mammogram) 2021 Obr-DPMAO-98 ( season) 2024 Alcohol and Drug Screen 11/20/2024 [...] Procedure Name Priority Date/Time Associated Diagnosis Comments PAP SMEAR Routine 11/15/2024 12:00 AM EST from Last 3 Months or Most Recently Relevant to Health Maintenance Results * PAP SMEAR (11/15/2024 12:00 AM EST) Swab us Provider [facility] - PATHOLOGY AND CYTOLOGY AMB ULATORY Final Result from Last 3 Months or Most Recently Relevant to Health Maintenance Insurance [facility] [employer] PLAN Member Subscriber Plan / Payer (Ef fective 2024-Present) Name:Jaz Lynch Relation to Subscriber:Self Name:Jaz Lynch Payer ID:[id number] Group ID:Not on file Type:Medicaid Address: [facility] [address] [place] [address] Care Teams Travel Registered Nurse Pacu Relationship Specialty Start Date End Date Namrata Dixon MD [address] [place] [phone] PCP - General Internal Medicine 03/20/25
--- OUTSIDE RECORDS SUMMARY | 2025-07-01 14:32 | XMS_ITS | Patient Health Record ---
Author Organization [facility] Address [address] [place] [address] Care Team Providers Care Newspaper Editor Managing Name Role Phone [place] HYATT, Elke Primary [...] Problem Status W/U Status Risk Notes Problem [id number] Dysphagia (R13.10) Active confirmed Problem [id number] Abnormal upper gastrointestinal barium series (R93.3) Active confirmed Encounters Encounter Location Date Provider Diagnosis [facility] [address] [place] [address] 09/12/2024 Vishal Hutchinson Jr Plan Of Treatment Future Test Test Name Order Date UPPER GI ENDOSCOPY 02/22/2017 Insurance Providers Payer Name Payer Address Payer Phone Subscriber Number Group Number Insured Name Patient Relationship to Insured Coverage Start Date Coverage End Date [facility] [address] [address] [place], [place] [id number] LUCY WALSH Self - patient is the insured MEDICAID OF [facility] [address] [place] [address] [id number] LUCY WALSH Self - patient is the insured Medical (General) History Medical History History ICD Code hypothyroidism attention deficit disorder bipolar disorder PTSD vitamin D deficiency carpal tunnel syndrome menorrhagia
--- OUTSIDE RECORDS SUMMARY | 2025-07-01 14:32 | XMS_ITS | Referral Summary ---
Author Organization [facility] r Address [address] [place] [address] Phone Care Team Providers Care Freight Booker Name Role Phone Elke Cross MD Unavailable [phone] Social History Tobacco Use Types Packs/Day Years Used Date Smoking Tobacco: Never Assessed Comments Unknown Sex and Gender Information Value Date Recorded Sex Assigned at Female 06/10/2024 4:31 PM EDT Legal Sex Female 4:17 PM EDT Gender Identity Female 06/10/2024 4:31 PM EDT Sexual Orientation Patient chooses not to answer 02/06/2025 2:03 PM EDT Plan of Treatment Not on file Care Teams Freight Booker Relationship Specialty Start Date End Date Elke Cross MD [address] [place] [address] PCP - Insurance 02/06/25
--- OUTSIDE RECORDS SUMMARY | 2025-07-01 14:32 | XMS_ITS | Patient Health Record ---
Author Organization [facility] Network Address [address] 1 [place] [address] Care Team Providers Care Manager Project Management Name Role Phone MANFRED MANRIQUEZ Primary Care Provider Unavail able GABRIELA NOLAN Unavailable [phone] Bartolome Farooq Unavailable [phone] Allergies Allergen (clinical drug ingredient) Drug/Non Drug [...] (J30.89) Active confirmed Problem Chronic allergic conjunctivitis (91007353) Other chronic allergic conjunctivitis (H10.45) Active confirmed Vital Signs Temperature 98 degrees Fahrenheit 05/14/2025 Height 63 in 05/14/2025 Weight 182 lbs 05/14/2025 BMI 32.24 kg/m2 05/14/2025 Encounters Encounter Location Date Provider Diagnosis [facility] [address] 1 [place] [address] 04/16/2025 Bartolome Din Other chronic allerg ic conjunctivitis H10.45 ; Other allergic rhinitis J30.89 and Deviated nasal septum J34.2 [facility] Network [address] Floor 1 [place] [address] 04/23/2025 GABRIELA NOLAN Other allergic rhini tis J30.89 and Other chronic allergic conjunctivitis H10.45 [facility] [address] Floor 1 [place] [address] 05/14/2025 GABRIELA NOLAN Other chronic allerg ic conjunctivitis H10.45 ; Other allergic rhinitis J30.89 and Deviated nasal septum J34.2 [facility] [address] Floor 1 [place] [address] 05/15/2025 GABRIELA NOLAN Assessments Encounter Date Diagnosis (ICD Code) Assessment Notes Treatment Notes Treatment Clinical Notes Section Notes 04/16/2025 Other allergic rhinitis (ICD-10 - J30.89) Moderately-controlled with Cetirizine 10 mg PO PRN + Flonase with good sx relief. Patient was on SCIT with outside organ pipe finisher from 04/2023 - 04/2024. She is interested [...] Patient was also recommended to contact outside organ pipe finisher to coordinate transfer of vials, if applicable, [...] She was previously on SCIT with outside organ pipe finisher from 04/2023 - 04/2024. Allergy skin prick [...] relief. Patient was on SCIT with outside organ pipe finisher from 04/2023 - 04/2024. She is interested [...] Patient was also recommended to contact outside organ pipe finisher to coordinate transfer of vials, if applicable, to our [facility]. - Allergen avoidance: If financially able to [...] Provider Name:Bartolome Farooq, 03/2025 01:00:00 PM, [address], [place], [address], Insurance Providers Payer Name Payer Address Payer Phone Subscriber Number Group Number Insured Name Patient Relationship to Insured Coverage Start Date Coverage End Date [facility] [address] [place] [address] [phone] [id number] Jaz Lynch Self - patient is the insured Medical (General) History Medical History History ICD Code Cervical Radiculopathy Epicondylitis IBS Fibromyalgia Scoliosis Restless leg syndrome Hypothyroidism GERD Anxiety Depression PTSD Binge Eating Disorder Deviated Septum Surgical History Surgery Date(Month/Year) Deviated Septum Surgery 2015 Bariatric Surgery 2021 Shoulder surgery 2015 Shoulder surgery 2018
--- OUTSIDE RECORDS SUMMARY | 2025-07-01 14:32 | XMS_ITS | Clinical Summary ---
Author Organization [facility] Address [address] [place] [address] Care Team Providers Care Physician Office Clin Asst Name Role Phone Unavailable Primary Care Provider [...] patient's age to complete this topic Insurance [facility] [employer] [facility]
== END 2025-07-01 14:08 | disposition home or self-care (01) ==
LOC: HO.HBST 13:38
PROVIDERS: PCP Internal Medicine; Visit Provider Counselor Mental Health
DX: F39 Unspecified mood [affective] disorder (principal); F41.1 Generalized anxiety disorder
CPT/HCPCS: 90837

== ENCOUNTER 2025-07-04 13:00 | Outpatient (AMB) | payer OTHER, SELFPAY ==
--- NOTE | 2025-07-04 08:46 | MHC.OFFVISWM ---
VS Expanded 07/04/25 08:47 Height 5 ft 3 in Weight 178 lb BMI 31.5 Intake Visit Reasons: (TV) PO LSG 02/06/22 Survey Manager Required: No Allergies cat dander (CAT DANDER) Allergy (Mild, Verified 01/02/25 12:56) EYES- TEAR, ITCHY, face swells dog dander (DOG DANDER) Allergy (Mild, Verified 01/02/25 12:56) EYES- TEAR, ITCHY, hives duloxetine (From CYMBALTA) Adverse Reaction (Intermediate, Verified 01/02/25 12:56) VAGINAL BLEEDING Medication List - Last Reconciled 07/04/25 by TYRONE Green acetaminophen ER (Tylenol 8 Hour) 650 mg PO Q12H albuterol sulfate 90 mcg/actuation (Ventolin HFA) 1 - 2 puffs inhalation Q4H PRN alclometasone 0.05% appl topical BID PRN back brace As directed benzoyl peroxide 10% topical calcium carbonate-vitamin D3 250 mg-3.125 mcg (125 unit) 1 tab PO BID cariprazine (Vraylar) 3 mg PO DAILY cetirizine 10 mg PO DAILY PRN clonazepam mg PO ONCE PRN dextroamphetamine-amphetamine 25 mg ER (Adderall XR) 50 mg PO ONCE diclofenac sodium 1% topical fluticasone propionate 50 mcg/actuation 2 sprays intranasal DAILY ivermectin 1% (Soolantra) 1 appl topical DAILY levothyroxine 50 mcg PO DAILY 30 days metformin 500 mg PO BID 30 days multivitamin 1 tab PO DAILY Ozempic (semaglutide) 0.5 mg (0.736 mL) subcut QWEEK 30 days NS pregabalin 25 mg PO BID sennosides (senna) 17.2 mg (2 x 8.6 mg) PO BEDTIME 90 days spironolactone 50 mg PO DAILY walker (Ultra-Light Rollator misc) As directed, with seat HPI Comments Details: 45-year-old female returns to the office today in follow-up. She is approximately 3 year 5 month status post sleeve gastrectomy performed on 02/06/2022. She had been followed by our registered dietitian, Jazmín in the past. Weight today is 178 lb with a BMI of 31.5. Taking mvi and brenda + D Wants to use 1% milk now instead of almond milk. She is sometimes eating some rice. Reports constipation, last bm 3 days ago. States she was using 1 scoop and not 1/2 scoops as directed Preop weight (02/11/2022) 205# weight at 3 MO 176# weight at 6 MO PO 173 weight weight (12/09/22) 188# Goal 165 pounds wakes at 10 am meal plan: 10 am 2 eggs w vegetables, 1/4 c fresh berries, 4 oz coffee w tsp 1/2 and 1/2 12-2pm Orgain shake, 1/2 scoop in 8 oz 1 % milk 4-6 pm another shake, 1/2 scoop in 8 oz 1 % milk 630 pm 7 forks of protein and 7 forks of vegetables Drinkin oz water 20 oz gatorade zero Exercise plan: stationary bike 5 x per week, 300 calories [employer], yoga [facility] Medical History Bilateral knee pain Sacroiliac pain Positive DANIELE (antinuclear antibody) Refused influenza vaccine PTSD (post-traumatic stress disorder) Insomnia PONV (postoperative nausea and vomiting) Gastric ulcer Cholelithiasis Sacroiliitis Spondylosis of lumbar region without myelopathy or radiculopathy Scoliosis Goiter Restless leg syndrome ADHD (attention deficit hyperactivity disorder) Anxiety OCD (obsessive compulsive disorder) Hypertension GERD (gastroesophageal reflux disease) Vitamin D deficiency PCOS (polycystic ovarian syndrome) Body mass index [BMI]40.0-44.9, adult Irritable bowel syndrome with diarrhea Environmental and seasonal allergies Breast cancer screening by mammogram Dyslipidemia Gastritis Morbid obesity Hirsutism Telogen effluvium Heartburn Degenerative disc disease, lumbar Fibromyalgia Bipolar disorder Rosacea Acquired hypothyroidism Surgical History S/P laparoscopic sleeve gastrectomy Hx of bariatric surgery Hx of shoulder surgery Hx of cholecystectomy Hx of colonoscopy Miscarriage History of nasal surgery History of rotator cuff surgery Family History Father Diabetes mellitus Mother OCD (obsessive compulsive disorder) EITAN (generalized anxiety disorder) HTN (hypertension) Cancer Cervical cancer Family/Other FH: mental illness Maternal Grandmother EITAN (generalized anxiety disorder) Glaucoma Mental health disorder Maternal Grandfather Alzheimer disease Maternal Aunt Hypothyroidism Mental health disorder Paternal Grandmother Unknown family medical history Paternal Grandfather Unknown family medical history Sister Hypothyroidism Paternal Aunt Substance use disorder Maternal Uncle Substance use disorder Social History Household Members Other:: brother Housing: Apartment Are you a primary health care sanitary technician to a significant other at home: No Do you presently have visiting nurse or other home services: No Alcohol intake: never Patient Tobacco Use Status: Former Tobacco user Tobacco use type: Cigarette Cigarettes Per Day: 20 Years Smoked: 3 e-Cigarette/Vaping Use: Never Used service: No Current occupational status: disabled Cognitive needs: No Hearing needs: No Vision needs: Yes Telehealth Telehealth Telehealth Platform: Telephone Location of provider rendering services: practice address Location of patient: address on file Patient Identification confirmed using: Name, : Yes Telehealth method: voice only Patient verbally consented to treatment: Yes Patient verbally consented to billing insurance company: Yes Patient informed of any privacy concerns related to visit: Yes Minutes spent on Phone/Video with Pt.: 15 Assessment & Plan Assessment & Plan (1) S/P laparoscopic sleeve gastrectomy: Code(s): Z98.84 - Bariatric surgery status Category: Surgical Plan: Patient was not following the meal plan as directed. She had been doing 1 scoop instead of a half scoop per shake. This was corrected and she wrote down the information. Additionally, discussed exercise, increasing calories burned to 400 calories per day, 5 days per week ultimately increasing to 6 days per week. She does state that sometimes she would use the stationary bike and other times she would just do a class at the gym. Discussed the importance of maintaining consistency with cardiovascular exercise. We will have her return to the clinic in 2 months. Encouraged to text weekly with her weight is and with any questions or concerns.
[2025-07-04 08:47] VITALS: BMI 31.5
--- OUTSIDE RECORDS SUMMARY | 2025-07-04 13:12 | XMS_ITS | Clinical Summary ---
Author Organization [facility] Address [address] [place] [address] Care Team Providers Care Momd Teacher Name Role Phone Namrata Dixon MD Primary Care Provider [phone] Source Comments PLEASE NOTE, if this patient [...] Amount: 50 mg 60 Capsule 5 Active Active Problems Problem Noted Date Diagnosed Date Scoliosis 03/25/2025 Assessment & Plan (03/25/2025 2:21 PM EDT): Patient had tremendous benefit working with her prior pain clinic which was providing cortisone injections, and she was also following closely with Rheum who was prescribing Lyrica. Working on getting newly established with both pain clinic and Rheum here in the [facility]. Referrals placed. Obesity without serious comorbidity 03/25/2025 Assessment & Plan (03/25/2025 2:21 PM EDT): Current BMI 32. Patient hoping to reestablish with a weight clinic here in the [facility]. She underwent bariatric surgery several years ago outside of [place], and continues on a multivitamin and Ca/Vit [...] and a pain clinic here in the [facility]. Referrals placed. Sacroiliac joint dysfunction 03/25/2025 Assessment & Plan (03/25/2025 2:21 PM EDT): Patient had tremendous benefit working with her prior pain clinic which was providing cortisone injections. She is hoping to newly establish with a pain clinic here in the [facility] where she can continue these treatments. Reviewed the importance of getting outside records and CD with any prior imaging in preparation for new appointments. PCOS (polycystic ovarian syndrome) 03/25/2025 Assessment & Plan (03/25/2025 2:21 PM EDT): Patient reports a history of PCOS for which she is on Metformin 500mg BID. Continues to have very irregular periods. Was previously following with OBGYN in [place], all paps have been reportedly normal with [...] th e electric, gas, oil, or water company threatened to shut off services in your [...] series) 0 Breast Cancer Screening (Mammogram) 2021 [id number] (1 - season) 2024 Alcohol and Drug Screen [...] Most Recently Relevant to Health Maintenance Insurance [facility] Member Subscriber Plan / Payer (Ef fective 2024-Present) Name:Jaz Lynch Relation to Subscriber:Self Name:Jaz Lynch Payer ID:[id number] Group ID:Not on file Type:Medicaid Address: [facility] [address] [place] [address] Care Teams Momd Teacher Relationship Specialty Start Date End Date Namrata Dixon MD [address] [place] [phone] PCP - General Internal Medicine 03/20/25
--- OUTSIDE RECORDS SUMMARY | 2025-07-04 13:12 | XMS_ITS | Patient Health Record ---
Author Organization [facility] Network Address [address] 1 [place] [address] Care Team Providers Care Clinic Director Name Role Phone MANFRED MANRIQUEZ Primary Care Provider Unavail able GABRIELA NOLAN Unavailable [phone] Bartolome Farooq Unavailable [phone] Allergies Allergen (clinical drug ingredient) Drug/Non Drug [...] Problem Status W/U Status Risk Notes Problem Allergic rhinitis (93672636) Other allergic rhinitis (J30.89) Active confirmed Problem Chronic allergic conjunctivitis (26004237) Other chronic allergic conjunctivitis (H10.45) Active confirmed Vital Signs Temperature 98 degrees Fahrenheit 05/14/2025 Height 63 in 05/14/2025 Weight 182 lbs 05/14/2025 BMI 32.24 kg/m2 05/14/2025 Encounters Encounter Location Date Provider Diagnosis [facility] [address] 1 [place] [address] 04/16/2025 Bartolome Farooq Other chronic allerg ic conjunctivitis H10.45 ; Other allergic rhinitis J30.89 and Deviated nasal septum J34.2 [facility] Network [address] Floor 1 [place] [address] 04/23/2025 GABRIELA NOLAN Other allergic rhini tis J30.89 and Other chronic allergic conjunctivitis H10.45 [facility] Network [address] 1 [place] [address] 05/14/2025 GABRIELA NOLAN Other chronic allerg ic conjunctivitis H10.45 ; Other allergic rhinitis J30.89 and Deviated nasal septum J34.2 [facility] [address] 1 [place] [address] 05/15/2025 GABRIELA NOLAN Assessments Encounter Date Diagnosis (ICD Code) Assessment Notes Treatment Notes Treatment Clinical Notes Section Notes 04/16/2025 Other allergic rhinitis (ICD-10 - J30.89) Moderately-controlled with Cetirizine 10 mg PO PRN + Flonase with good sx relief. Patient was on SCIT with outside tail dogger from 04/2023 - 04/2024. She is interested [...] Patient was also recommended to contact outside tail dogger to coordinate transfer of vials, if applicable, to our clinc. - Allergen avoidance: If financially able to [...] She was previously on SCIT with outside tail dogger from 04/2023 - 04/2024. Allergy skin prick [...] relief. Patient was on SCIT with outside tail dogger from 04/2023 - 04/2024. She is interested [...] Patient was also recommended to contact outside tail dogger to coordinate transfer of vials, if applicable, to our [facility]. - Allergen avoidance: If financially able [...] Provider Name:Bartolome Farooq, 03/2025 01:00:00 PM, [address], [place], [address], Insurance Providers Payer Name Payer Address Payer Phone Subscriber Number Group Number Insured Name Patient Relationship to Insured Coverage Start Date Coverage End Date [facility] [address] [place] [id number] Jaz Lynch Self - patient is the insured Medical (General) History Medical History History ICD Code Cervical Radiculopathy Epicondylitis IBS Fibromyalgia Scoliosis Restless leg syndrome Hypothyroidism GERD Anxiety Depression PTSD Binge Eating Disorder Deviated Septum Surgical History Surgery Date(Month/Year) Deviated Septum Surgery 2015 Bariatric Surgery 2021 Shoulder surgery 2015 Shoulder surgery 2018
--- OUTSIDE RECORDS SUMMARY | 2025-07-04 13:12 | XMS_ITS | Clinical Summary ---
Author Organization [facility] Address [address] [facility] [address] [place] [address] Care Team Providers Care Wink Cutter Operator Name Role Phone Namrata Dixon MD Primary Care Provider [phone] Allergies Active Allergy Reactions Criticality Noted Date [...] Team Description 06/19/2025 1:30 PM EDT Telemedicine [facility] Pain [address] [place] [phone] Bennett Alvarez MD Sacroiliac joint pain (Primary Dx) 06/12/[address] [address] Destiney Ventura RN Pre Visit Intake 06/04/2025 10:45 AM EDT Office Visit [facility] Otolaryngology [address] [place] [address], 1st [place] [address] Familia Mauro MD Chronic rhinitis (Primary Dx); Hypertrophy of nasal turbinates; Nasal valve stenosis; Deviated nasal septum; Nasal septal perforation 06/04/2025 Travel 05/07/2025 10:00 AM EDT Procedure Visit [place] [phone] Bennett Alvarez MD Sacroiliac joint pain (Primary Dx) 05/07/2025 Travel 05/07/2025 Telephone [place] [phone] Bennett Alvarez MD Running late 04/15/2025 Results Follow-Up [facility] Dermatology [address] [place] [address] Jeni Pearce MD 04/11/2025 11:25 AM EDT - 04/11/2025 11:59 PM EDT Hospital Encounter [facility] Radiology [address] [place] [address] Sacroiliac joint pain Discharge Disposition: Home or self care 04/11/2025 Travel 04/08/2025 10:30 AM EDT Office Visit [facility] Pain [address] [place] [address] Bennett Alvarez MD Sacroiliac joint pain (Primary Dx); Fibromyalgia 04/08/2025 Travel 04/03/2025 1:20 PM EDT Office Visit [facility] Dermatology [place] [address] [place] [address] Jeni Pearce MD Rosacea (Primary Dx); Seborrheic dermatitis; Non-scarring hair loss; PCOS (polycystic ovarian syndrome) from Last 3 Months Family History Medical [...] Description 08/05/2025 1:00 PM EDT Clinical Support [facility] Weight and Wellness [address] [place] [address] Margie Garcia LICSW 91 [facility] 208 Dept. [facility] [place] [address] 08/13/2025 11:30 AM EDT Office Visit [facility]ness [address] [place] [address] Kati Murphy, BRANDON [address] [place] [address] 10/02/2025 11:00 AM EST Office Visit [facility] Dermatology [place] [address] [place] [address] Jeni Pearce MD 800 [facility] [address] [place] [address] 11/24/2025 1:15 PM EST Office Visit [facility] Dermatology [address] [place] [address] Yarelis Hassan MD [address] [place] [address] 04/02/2026 11:00 AM EDT Office Visit [facility] Rheumatology [address] [place] [address] 3rd [place] [address] Jasper Nava MD [address] [place] [address] Health Maintenance Due Date Last Done Comments [...] Procedure Name Priority Date/Time Associated Diagnosis Comments WV INJECTION,SACROILIAC JOINT Routine 05/07/2025 7:17 AM EDT [...] 1:33 PM EDT PCOS (polycystic ovarian syndrome) 17-HYDROXYPROGESTERO NE Routine 04/10/2025 1:33 PM EDT PCOS (polycystic ovarian syndrome) FERRITIN Routine 04/10/2025 1:33 PM EDT Non-scarring hair loss ZINC Routine 04/10/2025 1:33 PM EDT Non-scarring hair loss from Last 3 Months Results * WV INJECTION,SACROILIAC JOINT (05/07/2025 7:17 AM EDT) Narrative Bennett Alvarez MD - 05/07/2025 7:17 AM EDT Bennett Alvarez MD 05/13/2025 7:18 AM Sacro Illiac Joint Injection on 05/07/2025 7:17 AM us Bennett Alvarez MD IN CLINIC/BEDSIDE ORDERABLES Fi nal Result [...] 44 years GENDER: Female ORD PHYS: BENNETT MAYRA LOCATION: [facility] 04/11/2025 11:51 AM EDT IMG75 (XR SACROILIAC JOINTS 3+ VIEWS) [id number] HISTORY: sacroiliac pain TECHNIQUE: Sacroiliac joints 3 [...] 44 years GENDER: Female ORD PHYS: BENNETT MAYRA LOCATION: [facility] 04/11/2025 11:51 AM EDT IMG75 (XR SACROILIAC JOINTS 3+ VIEWS) [id number] HISTORY: sacroiliac pain TECHNIQUE: Sacroiliac joints 3 [...] Zi Patterson MD 04/11/2025 3:37 PM EDT us Bennett Alvarez MD IMG XR PROCEDURES Final Result * Testosterone, Free and Total, MS (04/10/2025 1:33 PM EDT) EXT TESTOSTERONE, TOTAL, MS 7 2 - 45 ng/dL [facility] Comment: For additional information, please refer to http://education.[employer]faq/ RdcptApbutxttocweHQFESLISB591 (This link is being provided for informational/ educational purposes only.) This test was developed and its analytical performance characteristics have been determined by [facility] [place], [place]. It has not been cleared or approved by the U.S. Food and Drug Administration. This assay has been validated pursuant to the CLIA regulations and is used for clinical purposes. EXT TESTOSTERONE, FREE 0.8 0.1 - 6.4 pg/mL [facility] Comment: This test was developed and its analytical performance characteristics have been determined by [facility] [place], [place]. It has not been cleared or approved by the U.S. Food and Drug Administration. This assay has been validated pursuant to the CLIA regulations and is used for clinical purposes. Blood Venous blood specimen / Unknown 04/10/2025 1:33 PM EDT 04/10/2025 1:33 PM EDT [facility] - 04/15/2025 3:58 PM EDT PATIENT REFUSED SOME TESTING; PATIENT ENCOURAGED TO RETURN. Jeni Pearce MD LAB BLOOD ORDERABLES Final Res ult [facility] [address] [facility] [place], [place] , [facility] [address] [facility] [place], [place] * Sex hormone binding globulin (04/10/2025 1:33 PM EDT) EXT SEX HORMONE BINDING GLOBULIN 36 17 - 124 nmol/L [facility] Blood Venous blood specimen / Unknown 04/10/2025 1:33 PM EDT 04/10/2025 1:33 PM EDT Narrative JUAN - 04/15/2025 3:58 PM EDT PATIENT REFUSED SOME TESTING; PATIENT ENCOURAGED TO RETURN. Jeni Pearce MD LAB BLOOD ORDERABLES Final Res ult [facility] [address] [facility] [address] [facility], [place] [address], [facility] [address] [place] [address] * 17-Hydroxyprogesterone (04/10/2025 1:33 PM EDT) Pathologist [facility] 17-HYDROXYPROGES TERONE 9 see note ng/dL [facility]jandrina cano [facility] Comment: Unable to flag abnormal result(s), please [...] Endocrinol Metab. 1991;73:674-686; J Clin Endocrinol Metab. 1989;69;7923-0656; J Clin Endocrinol Metab. 1994;78:226-270. Pediatr Res 1988;23:525-529. MedLinePlus (accessed 05/05/14). This test was developed and its analytical performance characteristics have been determined by [facility] [place], [place]. It has not been cleared or [...] ORDERABLES Final Res ult Performing Organization Address [facility]/ZIP Co de Phone Number JUAN HEBRON [address] [place], [place] , [facility] [id number] [facility] [place], [place] * Zinc (04/10/2025 1:33 PM EDT) ZINC 80 60 - 130 mcg/dL [facility] Comment: This test was developed and its analytical performance characteristics have been determined by [facility] [place], [place]. It has not been cleared or approved by the U.S. Food and Drug Administration. This assay has been validated pursuant to the CLIA regulations and is used for clinical purposes. Blood Venous blood specimen / Unknown 04/10/2025 1:33 PM EDT 04/10/2025 1:33 PM EDT Narrative [facility] - 04/15/2025 3:58 PM EDT PATIENT REFUSED SOME TESTING; PATIENT ENCOURAGED TO RETURN. Jeni Pearce MD LAB BLOOD ORDERABLES Final Res ult Performing Organization Address [facility] Co de Phone Number JUAN HEBRON [address] [place], [place] , [facility]/[place] [id number] [facility] [place], [place] * Prolactin (04/10/2025 1:33 PM EDT) PROLACTIN 10.4 ng/mL [facility] Comment: Reference Range Females Non- 3.0-30.0 10.0-209.0 Postmenopausal 2.0-20.0 Blood Venous blood specimen / Unknown 04/10/2025 1:33 PM EDT 04/10/2025 1:33 PM EDT Narrative [facility] - 04/15/2025 3:58 PM EDT PATIENT REFUSED SOME TESTING; PATIENT ENCOURAGED TO RETURN. Jeni Pearce MD LAB BLOOD ORDERABLES Final Res ult Performing Organization Address [facility] de Phone Number [facility] [address] [address], [facility] [place] [facility] [address] [place] [address] * DHEA-sulfate (04/10/2025 1:33 PM EDT) [facility] DHEA SULFATE 32 15 - 205 mcg/dL [facility] [place] [facility] Blood Venous blood specimen / Unknown 04/10/2025 1:33 PM EDT 04/10/2025 1:33 PM EDT [facility] 04/15/2025 3:58 PM EDT PATIENT REFUSED SOME TESTING; PATIENT ENCOURAGED TO RETURN. Jeni Pearce MD LAB BLOOD ORDERABLES Final Res ult Performing Organization Address [facility] de Phone Number [address] [address], [facility] [place] [facility] [address] [place] [address] * CBC and differential (04/10/2025 1:33 PM EDT) [facility] WHITE BLOOD CELL COUNT 9.7 3.8 - 10.8 Thousand/ uL [facility] [place] [facility] RED BLOOD CELL COUNT 4.40 3.80 - 5.10 Million/u L [facility] [place] [facility] HEMOGLOBIN 13.7 11.7 - 15.5 g/dL [facility] [place] [facility] HEMATOCRIT 41.7 35.0 - 45.0 % [facility] [place] [facility] MCV 94.8 80.0 - 100.0 fL [facility] [place] [facility] MCH 31.1 27.0 - 33.0 pg [facility] [place] [facility] MCHC 32.9 32.0 - 36.0 g/dL [facility] [place] [facility] Comment: For adults, a slight decrease in the calculated MCHC value (in the range of 30 to 32 g/dL) is most likely not clinically significant; however, it should be interpreted with caution in correlation with other red cell parameters and the patient's clinical condition. RDW 12.0 11.0 - 15.0 % [facility] [place] [facility] Platelets 324 140 - 400 Thousand/ uL [facility] [place] [facility] MPV 10.9 7.5 - 12.5 fL [facility] [place] [facility] ABSOLUTE NEUTROPHILS 5,966 1,500 - 7,800 cells/uL [facility] [place] [facility] ABSOLUTE LYMPHOCYTES 2,745 850 - 3,900 cells/uL [facility] [place] [facility] ABSOLUTE MONOCYTES 728 200 - 950 cells/uL [facility] [place] [facility] ABSOLUTE EOSINOPHILS 97 15 - 500 cells/uL [facility] [place] [facility] ABSOLUTE BASOPHILS 165 0 - 200 cells/uL [facility] [place] [facility] NEUTROPHILS 61.5 % [facility] [place] [facility] LYMPHOCYTES 28.3 % [facility] [place] [facility] [facility] MONOCYTES 7.5 % [facility] [place] [facility] EOSINOPHILS 1.0 % [facility] [place] [facility] BASOPHILS 1.7 % [facility] [place] [facility] 04/10/2025 1:33 PM EDT 04/10/2025 1:33 PM EDT Narrative [facility] - 04/15/2025 3:58 PM EDT PATIENT REFUSED SOME TESTING; PATIENT ENCOURAGED TO RETURN. us Jeni Pearce MD LAB BLOOD ORDERABLES Final Res ult [facility] [address] [address], [facility] [place] [facility] [address] [place] [address] * Luteinizing hormone (04/10/2025 1:33 PM EDT) LH 10.1 mIU/mL [facility] [place] [facility] Comment: Reference Range Follicular Phase 1.9-12.5 Mid-Cycle Peak 8.7-76.3 Luteal Phase 0.5-16.9 Postmenopausal 10.0-54.7 Blood Venous blood specimen / Unknown 04/10/2025 1:33 PM EDT 04/10/2025 1:33 PM EDT Narrative [facility] - 04/15/2025 3:58 PM EDT PATIENT REFUSED SOME TESTING; PATIENT ENCOURAGED TO RETURN. Jeni Pearce MD LAB BLOOD ORDERABLES Final Res ult Performing Organization Address [facility] de Phone Number [address] [address], [facility] [place] [facility] [address] [place] [address] * Follicle Stimulating Hormone (04/10/2025 1:33 PM EDT) FSH 8.2 mIU/mL [facility] [place] [facility] Comment: Reference Range Follicular Phase 2.5-10.2 Mid-cycle Peak 3.1-17.7 Luteal Phase 1.5- 9.1 Postmenopausal 23.0-116.3 Blood Venous blood specimen / Unknown 04/10/2025 1:33 PM EDT 04/10/2025 1:33 PM EDT Narrative [facility] - 04/15/2025 3:58 PM EDT PATIENT REFUSED SOME TESTING; PATIENT ENCOURAGED TO RETURN. Jeni Pearce MD LAB BLOOD ORDERABLES Final Res ult Performing Organization Address [facility] de Phone Number [address] [address], [facility] [place] [facility] [address] [place] [address] * Ferritin (04/10/2025 1:33 PM EDT) FERRITIN 55 16 - 232 ng/mL [facility] [place] [facility] Blood Venous blood specimen / Unknown 04/10/2025 1:33 PM EDT 04/10/2025 1:33 PM EDT Narrative [facility] - 04/15/2025 3:58 PM EDT PATIENT REFUSED SOME TESTING; PATIENT ENCOURAGED TO RETURN. Jeni Pearce MD LAB BLOOD ORDERABLES Final Res ult [facility] 200 [facility] 3rd Floor, [place] [address], [facility] [place] [facility] [address] [place] [address] from Last 3 Months Insurance [facility] Care Teams Wink Cutter Operator Relationship Specialty Start Date End Date Namrata Dixon MD [address] [place] [address] PCP - General Floral Manager 03/24/25
--- OUTSIDE RECORDS SUMMARY | 2025-07-04 13:12 | XMS_ITS | Patient Health Record ---
Author Organization [facility] Address [address] [place] [address] Care Team Providers Care Felt Hat Flanging Operator Name Role Phone America HYATT, Elke [...] Problem Status W/U Status Risk Notes Problem [id number] Dysphagia (R13.10) Active confirmed Problem [id number] Abnormal upper gastrointestinal barium series (R93.3) Active confirmed Encounters Encounter Location Date Provider Diagnosis [facility] [address] [place] [address] 09/12/2024 Vishal Hutchinson Jr Plan Of Treatment Future Test Test Name Order Date UPPER GI ENDOSCOPY 02/22/2017 Insurance Providers Payer Name Payer Address Payer Phone Subscriber Number Group Number Insured Name Patient Relationship to Insured Coverage Start Date Coverage End Date [facility] [address] [address] [place], [place] [id number] LUCY WALSH Self - patient is the insured MEDICAID OF [facility] [address] [place] [address] [id number] LUCY WALSH Self - patient is the insured Medical (General) History Medical History History ICD Code hypothyroidism attention deficit disorder bipolar disorder PTSD vitamin D deficiency carpal tunnel syndrome menorrhagia
--- OUTSIDE RECORDS SUMMARY | 2025-07-04 13:12 | XMS_ITS | Clinical Summary ---
Author Organization [facility] Address [address] [place] [address] Care Team Providers Care Mobile Home Mechanic Name Role Phone Unavailable Primary Care Provider [...] patient's age to complete this topic [facility]
--- OUTSIDE RECORDS SUMMARY | 2025-07-04 13:12 | XMS_ITS | Referral Summary ---
Author Organization [facility] Address [address] [place] [address] Phone Care Team Providers Care Apparel Sales Associate Name Role Phone Elke Cross MD Unavailable [phone] Social History Tobacco Use Types Packs/Day Years Used Date Smoking Tobacco: Never Assessed Comments Unknown Sex and Gender Information Value Date Recorded Sex Assigned at Female 06/10/2024 4:31 PM EDT Legal Sex Female 4:17 PM EDT Gender Identity Female 06/10/2024 4:31 PM EDT Sexual Orientation Patient chooses not to answer 02/06/2025 2:03 PM EDT Plan of Treatment Not on file Care Teams Apparel Sales Associate Relationship Specialty Start Date End Date Elke Cross MD [address] [place] [id number] PCP - Insurance 02/06/25
== END 2025-07-04 13:29 | disposition home or self-care (01) ==
LOC: HO.HBS 13:10
PROVIDERS: PCP Internal Medicine; Visit Provider Physician Assistant Surgical
DX: E66.9 Obesity, unspecified (principal); Z68.31 Body mass index [BMI] 31.0-31.9, adult; Z98.84 Bariatric surgery status; Z90.3 Acquired absence of stomach [part of]
CPT/HCPCS: 98013

== ENCOUNTER 2025-07-16 14:05 | Outpatient (AMB) | payer OTHER, SELFPAY ==
--- OUTSIDE RECORDS SUMMARY | 2024-05-13 06:20 | XMS_ITS ---
Author Organization [facility] Address [address] [place] [phone] Care Team Providers Care Adjunct Trainer Name Role Phone America HYATT, Elke Primary Care Provider Vishal Salinas Jr [phone] REASON FOR VISIT IBS Encounters Encounter Location Date Provider Diagnosis [facility] [address] [place] [phone] 05/13/2024 Vishal Hutchinson Jr Plan Of Treatment No Information Progress Notes * LUCY WALSHDOB:1980 (45 yo F)Acc No.[id number]:05/13/2024 Progress Notes Patient: LUCY MARTINEZ Provider: Amaris Hutchinson MD :1980 A ge:43 Y S ex:Female Date:05/13/2024 Address:[address] [place], [place] [phone] Pcp:Elke Cross MD Subjective: * Chief Complaints: [...] 0 05/13/2024 Generated for Printi ng/Faxing/eTransmitting on: 07/16/2025 03:17 PM EDT
--- OUTSIDE RECORDS SUMMARY | 2024-09-12 10:35 | XMS_ITS ---
Author Organization [facility] Address [address] [place] [phone] Care Team Providers Care Hospital Insurance Clerk Name Role Phone America HYATT, Elke Primary Care Provider Vishal Salinas Jr [phone] REASON FOR VISIT Patient presents today for IBS Encounters Encounter Location Date Provider Diagnosis [facility] [address] [place] [phone] 09/12/2024 Vishal Hutchinson Jr Plan Of Treatment No Information Progress Notes * LUCY WALSHDOB:1980 (45 yo F)Acc No.[id number]:09/12/2024 Progress Notes Patient: LUCY MARTINEZ Provider: Amaris Hutchinson MD :1980 A ge:44 Y S ex:Female Date:09/12/2024 Address:[address] [place], [place] [phone] Pcp:Elke Cross MD Subjective: * Chief Complaints: [...] Pending * Provider: Amaris Hutchinson MD Date: 1 Generated for Printi ng/Faxing/eTransmitting on: 0 07/16/2025 03:16 PM EDT
--- NOTE | 2025-07-16 14:05 | MHC.WMTHER ---
Intake Intake Visit Reasons: VIDEO PO LSG 02/06/22 Allergies cat dander (CAT DANDER) Allergy (Mild, Verified 01/02/25 12:56) EYES- TEAR, ITCHY, face swells dog dander (DOG DANDER) Allergy (Mild, Verified 01/02/25 12:56) EYES- TEAR, ITCHY, hives duloxetine (From CYMBALTA) Adverse Reaction (Intermediate, Verified 01/02/25 12:56) VAGINAL BLEEDING PFSH Medical History Bilateral knee pain Sacroiliac pain Positive DANIELE (antinuclear antibody) Refused influenza vaccine PTSD (post-traumatic stress disorder) Insomnia PONV (postoperative nausea and vomiting) Gastric ulcer Cholelithiasis Sacroiliitis Spondylosis of lumbar region without myelopathy or radiculopathy Scoliosis Goiter Restless leg syndrome ADHD (attention deficit hyperactivity disorder) Anxiety OCD (obsessive compulsive disorder) Hypertension GERD (gastroesophageal reflux disease) Vitamin D deficiency PCOS (polycystic ovarian syndrome) Body mass index [BMI]40.0-44.9, adult Irritable bowel syndrome with diarrhea Environmental and seasonal allergies Breast cancer screening by mammogram Dyslipidemia Gastritis Morbid obesity Hirsutism Telogen effluvium Heartburn Degenerative disc disease, lumbar Fibromyalgia Bipolar disorder Rosacea Acquired hypothyroidism Surgical History S/P laparoscopic sleeve gastrectomy Hx of bariatric surgery Hx of shoulder surgery Hx of cholecystectomy Hx of colonoscopy Miscarriage History of nasal surgery History of rotator cuff surgery Family History Father Diabetes mellitus Mother OCD (obsessive compulsive disorder) EITAN (generalized anxiety disorder) HTN (hypertension) Cancer Cervical cancer Family/Other FH: mental illness Maternal Grandmother EITAN (generalized anxiety disorder) Glaucoma Mental health disorder Maternal Grandfather Alzheimer disease Maternal Aunt Hypothyroidism Mental health disorder Paternal Grandmother Unknown family medical history Paternal Grandfather Unknown family medical history Sister Hypothyroidism Paternal Aunt Substance use disorder Maternal Uncle Substance use disorder Social History Household Members Other:: brother Housing: Apartment Are you a primary doggy daycare activities director to a significant other at home: No Do you presently have visiting nurse or other home services: No Alcohol intake: never Patient Tobacco Use Status: Former Tobacco user Tobacco use type: Cigarette Cigarettes Per Day: 20 Years Smoked: 3 e-Cigarette/Vaping Use: Never Used service: No Current occupational status: disabled Cognitive needs: No Hearing needs: No Vision needs: Yes Behavioral Health Assessment Weight Management Therapy Therapy Notes Details Subjective: Patient reports satisfaction with her weight-loss progress, noting her most recent weight as 173 lbs. She describes ongoing difficulty in the mornings, stating that although she wakes up at 7 a.m., she does not feel like herself until around 11 a.m. During this period, she experiences symptoms of dizziness, fatigue, and stomach upset. She expresses frustration with these symptoms and is interested in strategies to improve her morning functioning. Objective: Patient attended a follow-up behavioral health session via Telehealth. She was alert, oriented, and engaged throughout the session. The session focused on exploring her morning symptoms and identifying potential contributing factors, such as hydration status, nutritional intake, medication timing, and sleep quality. Supportive listening was provided to validate her concerns and normalize the adjustment process following significant weight loss. Psychoeducation was offered regarding common post-bariatric surgery symptoms, including possible causes of morning dizziness and fatigue. Cognitive-behavioral interventions were used to help the patient identify patterns in her morning routine and to collaboratively develop practical modifications, such as adjusting meal timing, incorporating gentle morning activity, and ensuring adequate hydration. Problem-solving strategies were discussed to address barriers to implementing these changes. The patient was encouraged to monitor her symptoms and any correlations with her behaviors or routines, and to communicate any significant changes to her medical team. Assessment/Response: Mental status: Patient is alert and oriented to person, place, and time. Mood is described as generally positive, with some frustration related to morning symptoms. Affect is congruent with mood. Thought processes are logical and coherent. No evidence of psychosis or cognitive impairment. Risk reported/identified: Patient denies any thoughts of self-harm, harm to others, or suicidal ideation. No acute safety concerns identified during the session. Food/Weight/Diet Expectations of change Most recent weight: 173Lbs Goal: 160Lbs. Assessment & Plan Assessment & Plan (1) Unspecified mood [affective] disorder: Code(s): F39 - Unspecified mood [affective] disorder (2) Generalized anxiety disorder: Code(s): F41.1 - Generalized anxiety disorder Plan Continue behavioral health sessions on a bi-weekly basis to monitor adjustment, mood, and morning symptoms. Patient encouraged to implement morning routine modifications and symptom tracking as discussed. Reinforce communication with medical team regarding persistent or worsening symptoms. Next appointment in two weeks, 07/29/2025 Via telehealth. Telehealth Telehealth Telehealth Platform: Re[employer] Location of provider rendering services: other (Home office. [place], [place]) Location of patient: address on file Patient Identification confirmed using: Name, : Yes Telehealth method: video Patient verbally consented to treatment: Yes Patient verbally consented to billing insurance company: Yes Patient informed of any privacy concerns related to visit: Yes Minutes spent on Phone/Video with Pt.: 55 [place] [address] Tele Psytx >53 mins Patient Type Established Diagnoses Unspecified mood [affective] disorder F39 Generalized anxiety disorder F41.1 Time Spent (min) 55
--- OUTSIDE RECORDS SUMMARY | 2025-07-16 15:16 | XMS_ITS | Patient Health Record ---
Author Organization [facility] Address [address] [place] [address] Care Team Providers Care Business Systems Manager Name Role Phone [place] HYATT, Elke Primary Care Provider Vishal Salinas Jr [phone] Allergies Allergen (clinical drug ingredient) Drug/Non [...] Problem Status W/U Status Risk Notes Problem [id number] Dysphagia (R13.10) Active confirmed Problem [id number] Abnormal upper gastrointestinal barium series (R93.3) Active confirmed Encounters Encounter Location Date Provider Diagnosis [facility] [address] [place] [address] 09/12/2024 Vishal Hutchinson Jr Plan Of Treatment Future Test Test Name Order Date UPPER GI ENDOSCOPY 02/22/2017 Insurance Providers Payer Name Payer Address Payer Phone Subscriber Number Group Number Insured Name Patient Relationship to Insured Coverage Start Date Coverage End Date [facility] [address] [address] [place], [place] [id number] LUCY WALSH Self - patient is the insured MEDICAID OF [facility] [address] [place] [address] [id number] LUCY WALSH Self - patient is the insured Medical (General) History Medical History History ICD Code hypothyroidism attention deficit disorder bipolar disorder PTSD vitamin D deficiency carpal tunnel syndrome menorrhagia
--- OUTSIDE RECORDS SUMMARY | 2025-07-16 15:17 | XMS_ITS | Patient Health Record ---
Author Organization [facility] Address [address] [facility] Floor 1 [place] [address] Care Team Providers Care Rocket Motor Tester Name Role Phone MANFRED MANRIQUEZ Primary Care Provider Unavail able GABRIELA NOLAN Unavailable [phone] Bartolome Farooq Unavailable [phone] Allergies Allergen (clinical drug ingredient) Drug/Non Drug [...] W/U Status Risk Notes Problem Allergic rhinitis (54850539) Other allergic rhinitis (J30.89) Active confirmed Problem Chronic allergic conjunctivitis (26356778) Other chronic allergic conjunctivitis (H10.45) Active confirmed Vital Signs Temperature 98 degrees Fahrenheit 05/14/2025 Height 63 in 05/14/2025 Weight 182 lbs 05/14/2025 BMI 32.24 kg/m2 05/14/2025 Encounters Encounter Location Date Provider Diagnosis [facility] [address] Floor 1 [place] [address] 04/16/2025 Bartolome Farooq Other chronic allerg ic conjunctivitis H10.45 ; Other allergic rhinitis J30.89 and Deviated nasal septum J34.2 [facility] [address] Floor 1 [place] [address] 04/23/2025 GABRIELA NOLAN Other allergic rhini tis J30.89 and Other chronic allergic conjunctivitis H10.45 [facility] [address] [facility] Floor 1 [place] [address] 05/14/2025 GABRIELA NOLAN Other chronic allerg ic conjunctivitis H10.45 ; Other allergic rhinitis J30.89 and Deviated nasal septum J34.2 [facility] [address] [facility] Floor 1 [place] [address] 05/15/2025 GABRIELA NOLAN Assessments Encounter Date Diagnosis (ICD Code) Assessment Notes Treatment Notes Treatment Clinical Notes Section Notes 04/16/2025 Other allergic rhinitis (ICD-10 - J30.89) Moderately-controlled with Cetirizine 10 mg PO PRN + Flonase with good sx relief. Patient was on SCIT with outside recording artist from 04/2023 - 04/2024. She is interested [...] Patient was also recommended to contact outside recording artist to coordinate transfer of vials, if applicable, [...] She was previously on SCIT with outside recording artist from 04/2023 - 04/2024. Allergy skin prick [...] relief. Patient was on SCIT with outside recording artist from 04/2023 - 04/2024. She is interested [...] Patient was also recommended to contact outside recording artist to coordinate transfer of vials, if applicable, to our [facility]. - Allergen avoidance: If financially able [...] PM, [address] [facility], [address] 1, [place], [address], Insurance Providers Payer Name Payer Address Payer Phone Subscriber Number Group Number Insured Name Patient Relationship to Insured Coverage Start Date Coverage End Date [facility] [address] [facility] [address] [place] [address] [id number] Jaz Lynch Self - patient is the insured Medical (General) History Medical History History ICD Code Cervical Radiculopathy Epicondylitis IBS Fibromyalgia Scoliosis Restless leg syndrome Hypothyroidism GERD Anxiety Depression PTSD Binge Eating Disorder Deviated Septum Surgical History Surgery Date(Month/Year) Deviated Septum Surgery 2015 Bariatric Surgery 2021 Shoulder surgery 2015 Shoulder surgery 2018
--- OUTSIDE RECORDS SUMMARY | 2025-07-16 15:17 | XMS_ITS | Clinical Summary ---
Author Organization [facility] Address [address] [place] [address] Care Team Providers Care Automotive Customer Experience Advisor Name Role Phone Unavailable Primary Care Provider [...] patient's age to complete this topic [facility]
--- OUTSIDE RECORDS SUMMARY | 2025-07-16 15:17 | XMS_ITS | Referral Summary ---
Author Organization [facility] Address 1 [place] [address] Phone Care Team Providers Care Sports Centre Manager Name Role Phone Elke Cross MD Unavailable [phone] Social History Tobacco Use Types Packs/Day Years Used Date Smoking Tobacco: Never Assessed Comments Unknown Sex and Gender Information Value Date Recorded Sex Assigned at Female 06/10/2024 4:31 PM EDT Legal Sex Female 4:17 PM EDT Gender Identity Female 06/10/2024 4:31 PM EDT Sexual Orientation Patient chooses not to answer 02/06/2025 2:03 PM EDT Plan of Treatment Not on file Care Teams Sports Centre Manager Relationship Specialty Start Date End Date Elke Cross MD [address] [place] [phone] PCP - Insurance 02/06/25
--- OUTSIDE RECORDS SUMMARY | 2025-07-16 15:17 | XMS_ITS | Clinical Summary ---
Author Organization [facility] Address [address] [facility] [address] [place] [address] Care Team Providers Care Barrel Burner Name Role Phone Namrata Dixon MD Primary Care Provider [phone] Allergies Active Allergy Reactions Criticality Noted Date [...] Team Description 06/19/2025 1:30 PM EDT Telemedicine [facility] Pain [address] [place] [address] Dale Alavrez MD Sacroiliac joint pain (Primary Dx) 06/12/[address] [address] Destiney Ventura RN Pre Visit Intake 06/04/2025 10:45 AM EDT Office Visit [facility] Otolaryngology [address] [place] [address], 1st [place] [address] Familia Mauro MD Chronic rhinitis (Primary Dx); Hypertrophy of nasal turbinates; Nasal valve stenosis; Deviated nasal septum; Nasal septal perforation 06/04/2025 Travel 05/07/2025 10:00 AM EDT Procedure Visit [place] [phone] Dale Alvarez MD Sacroiliac joint pain (Primary Dx) 05/07/2025 Travel 05/07/2025 Telephone [place] [phone] Dale Alvaerz MD Running late 04/15/2025 Results Follow-Up [facility] Dermatology [address] [place] [address] Jeni Pearce MD from Last 3 Months Family History Medical [...] Description 08/05/2025 1:00 PM EDT Clinical Support [facility] Weight and Wellness [address] [facility] [address] [place] [address] Margie Garcia, RUBBERIZING MECHANIC [address] [facility] [address] Dept[address] [facility] [place] [address] 08/13/2025 11:30 AM EDT Office Visit [facility] Weight and Wellness [address] [facility] [address] [place] [address] Kati Murphy, BRANDON [address] [place] [address] 10/02/2025 11:00 AM EST Office Visit [facility] Dermatology [place] [address] [place] [phone] Jeni Pearce MD [address] [facility] [address] [place] [address] 11/24/2025 1:15 PM EST Office Visit [facility] Dermatology [address] [place] [address] Yarelis Hassan MD [address] [place] [address] 04/02/2026 11:00 AM EDT Office Visit [facility] Rheumatology [address] [facility] [address] 3rd [place] [phone] Jasper Nava MD [address] [facility] [address] [place] [address] Health Maintenance Due Date Last Done Comments [...] Procedure Name Priority Date/Time Associated Diagnosis Comments [place] INJECTION,SACROILIA C JOINT Routine 05/07/2025 7:17 AM EDT Sacroiliac joint pain from Last 3 Months Results * NY INJECTION,SACROILIAC JOINT (05/07/2025 7:17 AM EDT) Dale Yu MD - 05/07/2025 7:17 AM EDT Dale Alvarez MD 05/13/2025 7:18 AM Sacro Illiac Joint Injection on 05/07/2025 7:17 AM us Dale Alvarez MD IN CLINIC/BEDSIDE ORDERABLES Fi nal Result from Last 3 Months Insurance ACO Care Teams Barrel Burner Relationship Specialty Start Date End Date Namrata Dixon MD [address] [place] [phone] PCP - General Banquet Supervisor 03/24/25
--- OUTSIDE RECORDS SUMMARY | 2025-07-16 15:18 | XMS_ITS | Clinical Summary ---
Author Organization [facility] Address 1 [place] [address] Phone Care Team Providers Care Ict Sales Representative Name Role Phone Elke Cross MD Unavailable [phone] Social History Tobacco Use Types Packs/Day Years [...] 1981 HIV Lifetime Screening 1981 Hepatitis B Lifetime Screening 1981 Hepatitis C Antibody Lifetim e Screening 1981 LIPID PANEL 1981 THRIVE SCREENING 1981 Oral Health Screen 1981 HEIP Disability Screen 1986 BEHAVIORAL HEALTH SCREEN 1993 Psych Substance Use Screen 1993 Relationship Safety Screening 1996 DTAP/TDAP VACCINE (1 - Tdap) 2000 Cervical Cancer Screening 2002 Colposcopy 2002 PAP SMEAR 2002 Pap + HPV 2002 HPV VACCINES (1 - 3-dose SCD M series) 2008 MAMMOGRAM 2021 COVID-19 Vaccine ( - 2023-2 5 season) 2024 INFLUENZA VACCINE (#1) 2025 Zoster Vaccine (1 of 2) 2031 IPV VACCINES Aged Out No longer eligi [...] age to complete this topic Care Teams Ict Sales Representative Relationship Specialty Start Date End Date Elke Cross MD [place] [address] PCP - Insurance 02/06/25
--- OUTSIDE RECORDS SUMMARY | 2025-07-16 15:18 | XMS_ITS | Clinical Summary ---
Author Organization [facility] Address [address] [place] [address] Care Team Providers Care Map Maker Name Role Phone Namrata Dixon MD Primary Care Provider [phone] Source Comments PLEASE NOTE, if this patient [...] pain clinic and Rheum here in the [facility]. Referrals placed. Obesity without serious comorbidity 03/25/2025 Assessment & Plan (03/25/2025 2:21 PM EDT): Current BMI 32. Patient hoping to reestablish with a weight clinic here in the [facility]. She underwent bariatric surgery several years ago outside of [place], and continues on a multivitamin and Ca/Vit [...] and a pain clinic here in the [facility]. Referrals placed. Sacroiliac joint dysfunction 03/25/2025 Assessment & Plan (03/25/2025 2:21 PM EDT): Patient had tremendous benefit working with her prior pain clinic which was providing cortisone injections. She is hoping to newly establish with a pain clinic here in the [facility] where she can continue these treatments. Reviewed the importance of getting outside records and CD with any prior imaging in preparation for new appointments. PCOS (polycystic ovarian syndrome) 03/25/2025 Assessment & Plan (03/25/2025 2:21 PM EDT): Patient reports a history of PCOS for which she is on Metformin 500mg BID. Continues to have very irregular periods. Was previously following with OBGYN in [place], all paps have been reportedly normal with [...] series) 0 Breast Cancer Screening (Mammogram) 2021 [id number] (1 - season) 2024 Alcohol and Drug [...] Most Recently Relevant to Health Maintenance Insurance [facility] Member Subscriber Plan / Payer (Ef fective 2024-Present) Name:Jaz Lynch Relation to Subscriber:Self Name:Jaz Lynch Payer ID:[id number] Group ID:Not on file Type:Medicaid Address: [facility] [address] [place] [address] Care Teams Map Maker Relationship Specialty Start Date End Date Namrata Dixon MD [address] [place] [phone] PCP - General Internal Medicine 03/20/25
== END 2025-07-16 15:37 | disposition home or self-care (01) ==
LOC: HO.HBST 14:18
PROVIDERS: PCP Internal Medicine; Visit Provider Counselor Mental Health
DX: F39 Unspecified mood [affective] disorder (principal); F41.1 Generalized anxiety disorder
CPT/HCPCS: 90837

== ENCOUNTER 2025-07-29 13:21 | Outpatient (AMB) | payer OTHER, SELFPAY ==
--- OUTSIDE RECORDS SUMMARY | 2024-05-13 06:20 | XMS_ITS ---
Author Organization [facility] Address [address] [place] [phone] Care Team Providers Care Real Estate Lawyer Name Role Phone America HYATT, Elke Primary Care Provider Vishal Salinas Jr REASON FOR VISIT IBS Encounters Encounter Location Date Provider Diagnosis [facility] [address] [place] [phone] 05/13/2024 Vishal Hutchinson Jr Plan Of Treatment No Information Progress Notes * LUCY WALSHDOB:1980 (45 yo F)Acc No.[id number]:05/13/2024 Progress Notes Patient: LUCY MARTINEZ Provider: Amaris Hutchinson MD :1980 A ge:43 Y S ex:Female Date:05/13/2024 Address:[address] [place] [address] [address] [id number] Pcp:Elke Cross MD Subjective: * Chief Complaints: [...] Date: 05/13/2024 Generated for Printi ng/Faxing/eTransmitting on: 07/29/2025 03:46 PM EDT
--- OUTSIDE RECORDS SUMMARY | 2024-05-29 05:40 | XMS_ITS ---
Author Organization [facility] Network Address [address] [facility] Floor 1 [place] [address] Care Team Providers Care Portainer Operator Name Role Phone MANFRED MANRIQUEZ Primary Care Provider GABRIELA Maya [phone] REASON FOR VISIT e/no ref req c0 V, e/no ref req c0 V, e/no ref req c0 V Encounters Encounter Location Date Provider Diagnosis [facility] Network [address] [facility] Floor 1 [place] [address] 05/29/2024 GABRIELA NOLAN Plan Of Treatment Next Appt Details Provider Name:Bartolome Farooq, 03/2025 01:00:00 PM, [address] [facility], Floor 1, [place], [address], Progress Notes * Jaz LYNCH LDOB: 1 (45 yo F)Acc No.[id number]:05/29/2024 Patient: Jaz Espinal Provider: Domingo Nolan MD :1980 A ge:44 Y S ex:Female Date:05/29/2024 Address:[address] [place], [place] [id number] Pcp:MANFRED MANRIQUEZ Subjective: * Chief Complaints: * [...] Electronic signature of GABRIELA NOLAN M.D. on 07/29/2025 at 03:46 PM EDT Sign off status: Pending * Provider: Domingo Nolan MD Date: 0 05/29/2024 Generated for Aravind ventura/Nisha/Devi on: 0 07/29/2025 03:46 PM EDT
--- OUTSIDE RECORDS SUMMARY | 2024-05-29 07:00 | XMS_ITS ---
Author Organization [facility] Network Address [address] [facility] Floor 1 [place] [address] Care Team Providers Care Clicking Machine Operator Name Role Phone MANFRED MANRIQUEZ Primary Care Provider Unavail GABRIELA Alvarez Unavailable [phone] REASON FOR VISIT e/no ref req c0 V Encounters Encounter Location Date Provider Diagnosis [facility] Network [address] [facility] Floor 1 [place] [address] 05/29/2024 GABRIELA NOLAN Plan Of Treatment Next Appt Details Provider Name:Bartolome Farooq, 03/2025 01:00:00 PM, [address] [facility], Floor 1, [place], [address], Progress Notes * Jaz LYNCH LDOB: 1 (45 yo F)Acc No.[id number]:05/29/2024 Patient: Jaz Espinal Provider: Domingo Nolan MD :1980 A ge:44 Y S ex:Female Date:05/29/2024 Address:[address] [place], [place] [phone] Pcp:MANFRED MANRIQUEZ Subjective: * Chief Complaints: * e /no ref req c0 V * Electronic signature of GABRIELA NOLAN M.D. on 07/29/2025 at 03:47 PM EDT Sign off status: Pending * Provider: Domingo Nolan MD Date: 05/29/2024 Generated for Printi ng/Faxing/eTransmitting on: 07/29/2025 03:47 PM EDT
--- OUTSIDE RECORDS SUMMARY | 2024-09-12 10:35 | XMS_ITS ---
Author Organization [facility] Address [address] [place] [phone] Care Team Providers Care Local Az Truck Driver Name Role Phone America HYATT, Elke Primary Care Provider Vishal Salinas Jr REASON FOR VISIT Patient presents today for IBS Encounters Encounter Location Date Provider Diagnosis [facility] [address] [place] [phone] 09/12/2024 Vishal Hutchinson Jr Plan Of Treatment No Information Progress Notes * LUCY WALSHDOB:1980 (45 yo F)Acc No.[id number]:09/12/2024 Progress Notes Patient: LUCY MARTINEZ Provider: Amaris Hutchinson MD :1980 A ge:44 Y S ex:Female Date:09/12/2024 Address:[address] [place] [address] [id number] Pcp:Elke Cross MD Subjective: * Chief Complaints: [...] 1 Generated for Printi ng/Faxing/eTransmitting on: 0 07/29/2025 03:46 PM EDT
--- NOTE | 2025-07-29 13:05 | A.OFFWM_ITS ---
Intake Intake Visit Reasons: VIDEO PO LSG 02/06/22 Allergies cat dander (CAT DANDER) Allergy (Mild, Verified 01/02/25 12:56) EYES- TEAR, ITCHY, face swells dog dander (DOG DANDER) Allergy (Mild, Verified 01/02/25 12:56) EYES- TEAR, ITCHY, hives duloxetine (From CYMBALTA) Adverse Reaction (Intermediate, Verified 01/02/25 12:56) VAGINAL BLEEDING PFSH Medical History Bilateral knee pain Sacroiliac pain Positive DANIELE (antinuclear antibody) Refused influenza vaccine PTSD (post-traumatic stress disorder) Insomnia PONV (postoperative nausea and vomiting) Gastric ulcer Cholelithiasis Sacroiliitis Spondylosis of lumbar region without myelopathy or radiculopathy Scoliosis Goiter Restless leg syndrome ADHD (attention deficit hyperactivity disorder) Anxiety OCD (obsessive compulsive disorder) Hypertension GERD (gastroesophageal reflux disease) Vitamin D deficiency PCOS (polycystic ovarian syndrome) Body mass index [BMI]40.0-44.9, adult Irritable bowel syndrome with diarrhea Environmental and seasonal allergies Breast cancer screening by mammogram Dyslipidemia Gastritis Morbid obesity Hirsutism Telogen effluvium Heartburn Degenerative disc disease, lumbar Fibromyalgia Bipolar disorder Rosacea Acquired hypothyroidism Surgical History S/P laparoscopic sleeve gastrectomy Hx of bariatric surgery Hx of shoulder surgery Hx of cholecystectomy Hx of colonoscopy Miscarriage History of nasal surgery History of rotator cuff surgery Family History Father Diabetes mellitus Mother OCD (obsessive compulsive disorder) EITAN (generalized anxiety disorder) HTN (hypertension) Cancer Cervical cancer Family/Other FH: mental illness Maternal Grandmother EITAN (generalized anxiety disorder) Glaucoma Mental health disorder Maternal Grandfather Alzheimer disease Maternal Aunt Hypothyroidism Mental health disorder Paternal Grandmother Unknown family medical history Paternal Grandfather Unknown family medical history Sister Hypothyroidism Paternal Aunt Substance use disorder Maternal Uncle Substance use disorder Social History Household Members Other:: brother Housing: Apartment Are you a primary career resource technician to a significant other at home: No Do you presently have visiting nurse or other home services: No Alcohol intake: never Patient Tobacco Use Status: Former Tobacco user Tobacco use type: Cigarette Cigarettes Per Day: 20 Years Smoked: 3 e-Cigarette/Vaping Use: Never Used service: No Current occupational status: disabled Cognitive needs: No Hearing needs: No Vision needs: Yes Behavioral Health Assessment Weight Management Therapy Therapy Notes Details Subjective: The patient reports feeling fatigued after meals and has noticed increased sugar cravings. She is experiencing low energy and heightened anxiety, which she attributes to a new situation involving her partner and his ex-. The patient denies any changes to her medication regimen and reports continued steady weight loss. Objective: The patient attended a follow-up visit via telehealth and was engaged throughout the session. During the visit, we discussed her current functioning and processed the ongoing interpersonal challenges she is facing. Her emotional responses were validated and normalized. A solution-focused approach was used to help her explore assertive strategies for addressing recent events, and we reviewed factors both within and outside of her control. Psychoeducation on stress management techniques was provided, and the session included a guided relaxation exercise to support her coping skills. Assessment/Response: * Mental status: the patient appears stressed, worried, and tense, with low energy and motivation. Mild functional impairment is noted, particularly in the mornings. * Risk reported/identified: none Assessment & Plan Assessment & Plan (1) Unspecified mood [affective] disorder: Code(s): F39 - Unspecified mood [affective] disorder (2) Generalized anxiety disorder: Code(s): F41.1 - Generalized anxiety disorder Plan The patient will continue with bi-weekly behavioral health sessions to provide ongoing support and monitor her progress. Stress management and relaxation techniques will be reinforced in future sessions, with continued attention to her energy levels, mood, and ability to cope with interpersonal stressors. She will be encouraged to maintain adherence to her weight loss and medication regimens, and any changes in her symptoms or circumstances will be addressed as needed. * Next anamaria: 08/12/25 at 1pm via Telehealth Telehealth Telehealth Telehealth Platform: [employer] Location of provider rendering services: practice address Location of patient: address on file Patient Identification confirmed using: Name, : Yes Telehealth method: video Patient verbally consented to treatment: Yes Patient verbally consented to billing insurance company: Yes Patient informed of any privacy concerns related to visit: Yes Minutes spent on Phone/Video with Pt.: 60 Coding Level of Care Code Established Pt Tele Psytx >53 mins (91680) Patient Type Established Diagnoses Unspecified mood [affective] disorder F39 Generalized anxiety disorder F41.1 Time Spent (min) 60
--- OUTSIDE RECORDS SUMMARY | 2025-07-29 15:46 | XMS_ITS | Clinical Summary ---
Author Organization [facility] Address [address] [facility] [address] [place] [address] Care Team Providers Care Six Horse Hitch Driver Name Role Phone Namrata Dixon MD Primary Care Provider [phone] Allergies Active Allergy Reactions Criticality Noted Date [...] Team Description 06/19/2025 1:30 PM EDT Telemedicine [facility] Pain [address] [place] [phone] Dale Alvarez MD Sacroiliac joint pain (Primary Dx) 06/12/[address] [address] Destiney Ventura RN Pre Visit Intake 06/04/2025 10:45 AM EDT Office Visit [facility] Otolaryngology [address] [place] [address], 1st [place] [address] Familia Mauro MD Chronic rhinitis (Primary Dx); Hypertrophy of nasal turbinates; Nasal valve stenosis; Deviated nasal septum; Nasal septal perforation 06/04/2025 Travel 05/07/2025 10:00 AM EDT Procedure Visit [place] [phone] Dale Alvarez MD Sacroiliac joint pain (Primary Dx) 05/07/2025 Travel 05/07/2025 Telephone [place] [phone] Dale Alvarez MD Running late from Last 3 Months Family History Medical [...] Description 08/05/2025 1:00 PM EDT Clinical Support [facility] Weight and Wellness [address] [facility] [address] [place] [address] Margie Garcia LICSW [address] [facility] [address] Dept. [facility] [place] [address] 08/13/2025 11:30 AM EDT Office Visit [facility] Weight and Wellness [address] [facility] [address] [place] [address] Kati Murphy, BRANDON [address] [place] [address] 10/02/2025 11:00 AM EST Office Visit [facility] Dermatology [place] [address] [place] [address] Jeni Pearce MD [address] [facility] [address] [place] [address] 11/24/2025 1:15 PM EST Office Visit [facility] Dermatology [address] [place] [address] Yarelis Hassan MD [address] [place] [address] 04/02/2026 11:00 AM EDT Office Visit [facility] Rheumatology [address] [facility] [address]ldg 3rd [place] [phone] Jasper Nava MD [address] [facility] [address] [place] [address] Health Maintenance Due Date Last Done Comments [...] Cancer Screening 2011 HPV/Cotest 2011 Mammogram 2021 Depression Screening 11/20/2024 COVID-19 Vaccine (2023-2 5 season) 2025 Influenza Vaccine (#1) 2025 HIB Vaccines Aged [...] Procedure Name Priority Date/Time Associated Diagnosis Comments ME INJECTION,SACROILIA C JOINT Routine 05/07/2025 7:17 AM EDT Sacroiliac joint pain from Last 3 Months Results * ME INJECTION,SACROILIAC JOINT (05/07/2025 7:17 AM EDT) Narrative Dale Alvarez MD - 05/07/2025 7:17 AM EDT Dale Alvarez MD 05/13/2025 7:18 AM Sacro Illiac Joint Injection on 05/07/2025 7:17 AM Dale Alvarez MD IN CLINIC/BEDSIDE ORDERABLES Fi nal Result from Last 3 Months Insurance [facility] ACO [address] [place] [id number] Care Teams Six Horse Hitch Driver Relationship Specialty Start Date End Date Namrata Dixon MD [address] [place] [phone] PCP - General Oven Tender Bagels 03/24/25
--- OUTSIDE RECORDS SUMMARY | 2025-07-29 15:46 | XMS_ITS | Patient Health Record ---
Author Organization [facility] Address [address] [facility] Floor 1 [place] [address] Care Team Providers Care Ergonomics Consultant Name Role Phone MANFRED MANRIQUEZ Primary Care Provider Unavail able GABRIELA NOLAN Unavailable [phone] Bartolome Farooq Unavailable [phone] Allergies Allergen (clinical drug ingredient) Drug/Non Drug [...] W/U Status Risk Notes Problem Allergic rhinitis (78880350) Other allergic rhinitis (J30.89) Active confirmed Problem Chronic allergic conjunctivitis (21403638) Other chronic allergic conjunctivitis (H10.45) Active confirmed Vital Signs Temperature 98 degrees Fahrenheit 05/14/2025 Height 63 in 05/14/2025 Weight 182 lbs 05/14/2025 BMI 32.24 kg/m2 05/14/2025 Encounters Encounter Location Date Provider Diagnosis [facility] [address] Floor 1 [place] [address] 04/16/2025 Bartolome Farooq Other chronic allerg ic conjunctivitis H10.45 ; Other allergic rhinitis J30.89 and Deviated nasal septum J34.2 [facility] [address] Floor 1 [place] [address] 04/23/2025 GABRIELA NOLAN Other allergic rhini tis J30.89 and Other chronic allergic conjunctivitis H10.45 [facility] [address] [facility] Floor 1 [place] [address] 05/14/2025 GABRIELA NOLAN Other chronic allerg ic conjunctivitis H10.45 ; Other allergic rhinitis J30.89 and Deviated nasal septum J34.2 [facility] [address] [facility] [address] 1 [place] [address] 05/15/2025 GABRIELA NOLAN Assessments Encounter Date Diagnosis (ICD Code) Assessment Notes Treatment Notes Treatment Clinical Notes Section Notes 04/16/2025 Other allergic rhinitis (ICD-10 - J30.89) Moderately-controlled with Cetirizine 10 mg PO PRN + Flonase with good sx relief. Patient was on SCIT with outside assistant golf professional from 04/2023 - 04/2024. She is interested [...] Patient was also recommended to contact outside assistant golf professional to coordinate transfer of vials, if applicable, [...] She was previously on SCIT with outside assistant golf professional from 04/2023 - 04/2024. Allergy skin prick [...] relief. Patient was on SCIT with outside assistant golf professional from 04/2023 - 04/2024. She is interested [...] Patient was also recommended to contact outside assistant golf professional to coordinate transfer of vials, if applicable, to our [facility]. - Allergen avoidance: If financially able [...] Provider Name:Bartolome Farooq, 03/2025 01:00:00 PM, [address] [facility], [address], [place], [address], Insurance Providers Payer Name Payer Address Payer Phone Subscriber Number Group Number Insured Name Patient Relationship to Insured Coverage Start Date Coverage End Date [facility] [address] [facility] [address] [place] [id number] Jaz Lynch Self - patient is the insured Medical (General) History Medical History History ICD Code Cervical Radiculopathy Epicondylitis IBS Fibromyalgia Scoliosis Restless leg syndrome Hypothyroidism GERD Anxiety Depression PTSD Binge Eating Disorder Deviated Septum Surgical History Surgery Date(Month/Year) Deviated Septum Surgery 2015 Bariatric Surgery 2021 Shoulder surgery 2015 Shoulder surgery 2018
--- OUTSIDE RECORDS SUMMARY | 2025-07-29 15:46 | XMS_ITS | Patient Health Record ---
Author Organization [facility] Address [address] [place] [address] Care Team Providers Care Furnishings Conservator Name Role Phone America HYATT, Elke Primary [...] Problem Status W/U Status Risk Notes Problem [id number] Dysphagia (R13.10) Active confirmed Problem [id number] Abnormal upper gastrointestinal barium series (R93.3) Active confirmed Encounters Encounter Location Date Provider Diagnosis [facility] [address] [place] [address] 09/12/2024 Vishal Hutchinson Jr Plan Of Treatment Future Test Test Name Order Date UPPER GI ENDOSCOPY 02/22/2017 Insurance Providers Payer Name Payer Address Payer Phone Subscriber Number Group Number Insured Name Patient Relationship to Insured Coverage Start Date Coverage End Date [facility] [address] [address] [place], [place] [id number] LUCY WALSH Self - patient is the insured MEDICAID OF [facility] [address] [place] [address] [id number] LUCY WALSH Self - patient is the insured Medical (General) History Medical History History ICD Code hypothyroidism attention deficit disorder bipolar disorder PTSD vitamin D deficiency carpal tunnel syndrome menorrhagia
--- OUTSIDE RECORDS SUMMARY | 2025-07-29 15:47 | XMS_ITS | Clinical Summary ---
Author Organization [facility] Address [address] [place] [address] Care Team Providers Care Vp Project Name Role Phone Unavailable Primary Care Provider [...] 2011 Breast Cancer Screening 2021 Influenza (Seasonal) 06/20/2025 CoVid-19 Vaccine ( - 2023-2 5 season) 2025 HIB Vaccines Aged Out No longer [...] patient's age to complete this topic [facility]
--- OUTSIDE RECORDS SUMMARY | 2025-07-29 15:47 | XMS_ITS | Clinical Summary ---
Author Organization [facility] r Address [address] [place] [address] Phone Care Team Providers Care Ship Boss Name Role Phone Elke Cross MD Unavailable [phone] Social History Tobacco Use Types Packs/Day Years [...] M series) 2008 MAMMOGRAM 2021 COVID-19 Vaccine (1 - 2023-2 5 season) 2025 INFLUENZA VACCINE (#1) 2025 Zoster Vaccine (1 [...] age to complete this topic Care Teams Ship Boss Relationship Specialty Start Date End Date Elke Cross MD [facility] [place] [address] PCP - Insurance 02/06/25
--- OUTSIDE RECORDS SUMMARY | 2025-07-29 15:47 | XMS_ITS | Referral Summary ---
Author Organization [facility] r Address [address] [place] [address] Phone Care Team Providers Care Scale Tester Name Role Phone Elke Cross MD Unavailable [phone] Social History Tobacco Use Types Packs/Day Years Used Date Smoking Tobacco: Never Assessed Comments Unknown Sex and Gender Information Value Date Recorded Sex Assigned at Female 06/10/2024 4:31 PM EDT Legal Sex Female 4:17 PM EDT Gender Identity Female 06/10/2024 4:31 PM EDT Sexual Orientation Patient chooses not to answer 02/06/2025 2:03 PM EDT Plan of Treatment Not on file Care Teams Scale Tester Relationship Specialty Start Date End Date Elke Cross MD [address] [place] [id number] PCP - Insurance 02/06/25
== END 2025-07-29 14:14 | disposition home or self-care (01) ==
LOC: HO.HBST 13:21
PROVIDERS: PCP Internal Medicine; Visit Provider Counselor Mental Health
DX: F39 Unspecified mood [affective] disorder (principal); F41.1 Generalized anxiety disorder
CPT/HCPCS: 90837

== ENCOUNTER 2025-08-12 13:24 | Outpatient (AMB) | payer OTHER, SELFPAY ==
--- OUTSIDE RECORDS SUMMARY | 2024-05-13 06:20 | XMS_ITS ---
Author Organization [facility] Address [address] [place] [phone] Care Team Providers Care Laborer Car Barn Name Role Phone America HYATT, Elke Primary Care Provider Vishal Salinas Jr REASON FOR VISIT IBS Encounters Encounter Location Date Provider Diagnosis [facility] [address] [place] [phone] 05/13/2024 Vishal Hutchinson Jr Plan Of Treatment No Information Progress Notes * LUCY WALSHDOB:1980 (45 yo F)Acc No.[id number]:05/13/2024 Progress Notes Patient: LUCY MARTINEZ Provider: Amaris Hutchinson MD :1980 A ge:43 Y S ex:Female Date:05/13/2024 Address:[address] [place], [place] [phone] Pcp:Elke Cross MD Subjective: * Chief Complaints: * 1 . IBS. * Medical History: Objective: * Vitals: Assessment: Plan: * Treatment: * * The named appointment provid er may or may not be the originator of this progress note, and it is not deemed complete until electronically signed by the appointment provider. Sign off status: Pending * Provider: Amaris Hutchinson MD Date: 05/13/2024 Generated for Printi ng/Faxing/eTransmitting on: 08/12/2025 04:26 PM EDT
--- OUTSIDE RECORDS SUMMARY | 2024-05-29 05:40 | XMS_ITS ---
Author Organization [facility] Network Address [address] [facility] Floor 1 [place] [address] Care Team Providers Care Player Development Manager Name Role Phone MANFRED MANRIQUEZ Primary Care Provider GABRIELA Maya [phone] REASON FOR VISIT e/no ref req c0 V, e/no ref req c0 V, e/no ref req c0 V Encounters Encounter Location Date Provider Diagnosis [facility] Network [address] [facility] Floor 1 [place] [address] 05/29/2024 GABRIELA NOLAN Plan Of Treatment Next Appt Details Provider Name:Bartolome Farooq, 03/2025 01:00:00 PM, [address] [facility], [address] 1, [place], [address], Progress Notes * Jaz LYNCH LDOB: 1 (45 yo F)Acc No.[id number]:05/29/2024 Patient: Jaz Espinal Provider: Domingo Nolan MD :1980 A ge:44 Y S ex:Female Date:05/29/2024 Address:[address] [place], [place] [id number] Pcp:MANFRED MANRIQUEZ Subjective: * Chief Complaints: * [...] Electronic signature of GABRIELA NOLAN M.D. on 08/12/2025 at 04:26 PM EDT Sign off status: Pending * Provider: Domingo Nolan MD Date: 0 05/29/2024 Generated for Aravind ventura/Nisha/Devi on: 0 08/12/2025 04:26 PM EDT
--- OUTSIDE RECORDS SUMMARY | 2024-05-29 07:00 | XMS_ITS ---
Author Organization [facility] Network Address [address] [facility] Floor 1 [place] [address] Care Team Providers Care Car Greaser Name Role Phone MANFRED MANRIQUEZ Primary Care Provider Unavail GABRIELA Alvarez Unavailable [phone] REASON FOR VISIT e/no ref req c0 V Encounters Encounter Location Date Provider Diagnosis [facility] Network [address] [facility] Floor 1 [place] [address] 05/29/2024 GABRIELA NOLAN Plan Of Treatment Next Appt Details Provider Name:Bartolome Farooq, 03/2025 01:00:00 PM, [address] [facility], Floor 1, [place], [address], Progress Notes * Jaz LYNCH LDOB: 1 (45 yo F)Acc No.[id number]:05/29/2024 Patient: Jaz Espinal Provider: Domingo Nolan MD :1980 A ge:44 Y S ex:Female Date:05/29/2024 Address:[address] [place], [place] [phone] Pcp:MANFRED MANRIQUEZ Subjective: * Chief Complaints: * e /no ref req c0 V * Electronic signature of GABRIELA NOLAN M.D. on 08/12/2025 at 10:38 AM EDT Sign off status: Pending * Provider: Domingo Nolan MD Date: 05/29/2024 Generated for Printi ng/Faxing/eTransmitting on: 0 08/12/2025 10:38 AM EDT
--- OUTSIDE RECORDS SUMMARY | 2024-09-12 10:35 | XMS_ITS ---
Author Organization [facility] Address [address] [place] [phone] Care Team Providers Care Gasoline Catalyst Operator Name Role Phone America HYATT, Elke Primary Care Provider Vishal Salinas Jr REASON FOR VISIT Patient presents today for IBS Encounters Encounter Location Date Provider Diagnosis [facility] [address] [place] [phone] 09/12/2024 Vishal Hutchinson Jr Plan Of Treatment No Information Progress Notes * LUCY WALSHDOB:1980 (45 yo F)Acc No.[id number]:09/12/2024 Progress Notes Patient: LUCY MARTINEZ Provider: Amaris Hutchinson MD :1980 A ge:44 Y S ex:Female Date:09/12/2024 Address:[address] [place] [address] [facility] Pcp:Elke Cross MD Subjective: * Chief Complaints: [...] 1 Generated for Printi ng/Faxing/eTransmitting on: 0 08/12/2025 10:38 AM EDT
--- NOTE | 2025-08-12 13:15 | A.OFFWM_ITS ---
Intake Intake Visit Reasons: VIDEO PO LSG 02/06/22 Allergies cat dander (CAT DANDER) Allergy (Mild, Verified 01/02/25 12:56) EYES- TEAR, ITCHY, face swells dog dander (DOG DANDER) Allergy (Mild, Verified 01/02/25 12:56) EYES- TEAR, ITCHY, hives duloxetine (From CYMBALTA) Adverse Reaction (Intermediate, Verified 01/02/25 12:56) VAGINAL BLEEDING PFSH Medical History Bilateral knee pain Sacroiliac pain Positive DANIELE (antinuclear antibody) Refused influenza vaccine PTSD (post-traumatic stress disorder) Insomnia PONV (postoperative nausea and vomiting) Gastric ulcer Cholelithiasis Sacroiliitis Spondylosis of lumbar region without myelopathy or radiculopathy Scoliosis Goiter Restless leg syndrome ADHD (attention deficit hyperactivity disorder) Anxiety OCD (obsessive compulsive disorder) Hypertension GERD (gastroesophageal reflux disease) Vitamin D deficiency PCOS (polycystic ovarian syndrome) Body mass index [BMI]40.0-44.9, adult Irritable bowel syndrome with diarrhea Environmental and seasonal allergies Breast cancer screening by mammogram Dyslipidemia Gastritis Morbid obesity Hirsutism Telogen effluvium Heartburn Degenerative disc disease, lumbar Fibromyalgia Bipolar disorder Rosacea Acquired hypothyroidism Surgical History S/P laparoscopic sleeve gastrectomy Hx of bariatric surgery Hx of shoulder surgery Hx of cholecystectomy Hx of colonoscopy Miscarriage History of nasal surgery History of rotator cuff surgery Family History Father Diabetes mellitus Mother OCD (obsessive compulsive disorder) EITAN (generalized anxiety disorder) HTN (hypertension) Cancer Cervical cancer Family/Other FH: mental illness Maternal Grandmother EITAN (generalized anxiety disorder) Glaucoma Mental health disorder Maternal Grandfather Alzheimer disease Maternal Aunt Hypothyroidism Mental health disorder Paternal Grandmother Unknown family medical history Paternal Grandfather Unknown family medical history Sister Hypothyroidism Paternal Aunt Substance use disorder Maternal Uncle Substance use disorder Social History Household Members Other:: brother Housing: Apartment Are you a primary career services coordinator to a significant other at home: No Do you presently have visiting nurse or other home services: No Alcohol intake: never Patient Tobacco Use Status: Former Tobacco user Tobacco use type: Cigarette Cigarettes Per Day: 20 Years Smoked: 3 e-Cigarette/Vaping Use: Never Used service: No Current occupational status: disabled Cognitive needs: No Hearing needs: No Vision needs: Yes Behavioral Health Assessment Weight Management Therapy Therapy Notes Details Subjective: The patient reports ongoing significant pain, primarily in her shoulder, which she attributes to both her history of fibromyalgia and post-surgical changes. She notes that her symptoms are exacerbated by fluctuations in weather and temperature. Despite these physical challenges, she expresses that her relationship with her partner has improved. The patient describes increased anxiety and rumination regarding how to establish and maintain healthy boundaries with others, especially to avoid misunderstandings or conflicts, given the partner's ex- history of a conflictual personality and their upcoming move close to them. She expresses concern about potential future interactions and is seeking strategies to manage these worries. Objective: PT presents for a f/up via telehealth. CBT Interventions Provided: * Psychoeducation on the relationship between chronic pain, stress, and fibromyalgia symptom exacerbation. * Guided the patient through cognitive restructuring to identify and challenge catastrophic thoughts related to boundary-setting and anticipated conflict. * Introduced thought-stopping techniques to interrupt cycles of rumination. * Practiced assertive communication skills through role-play scenarios, focusing on setting clear, respectful boundaries. * Utilized behavioral activation strategies to encourage engagement in pleasurable activities despite pain. * Reviewed relaxation techniques (deep breathing, progressive muscle relaxation) to manage acute anxiety. * Assigned homework: Patient to journal situations where she successfully sets boundaries and to note her emotional responses. Assessment/Response: * Mental status: Alert and oriented x3. Mood anxious, affect congruent. No ev idence of psychosis or suicidal/homicidal ideation. * Risk reported/identified: none Assessment & Plan Assessment & Plan (1) Unspecified mood [affective] disorder: Code(s): F39 - Unspecified mood [affective] disorder (2) Generalized anxiety disorder: Code(s): F41.1 - Generalized anxiety disorder Plan The plan is to continue with weekly CBT-focused sessions, reinforcing the use of cognitive restructuring and assertiveness skills throughout treatment. The patient?s pain and mood symptoms will be monitored regularly. She will be encouraged to maintain ongoing journaling to track her experiences and emotional responses, with progress to be reviewed in the next session. * Next anamaria: 08/26/25 at 1pm, video Telehealth Telehealth Telehealth Platform: Dymant Location of provider rendering services: other (Home office. [place], [place]) Location of patient: address on file Patient Identification confirmed using: Name, : Yes Patient verbally consented to treatment: Yes Patient verbally consented to billing insurance company: Yes Patient informed of any privacy concerns related to visit: Yes Minutes spent on Phone/Video with Pt.: 50 Coding Level of Care Code Established Pt Tele Psytx 45 mins (94457) Patient Type Established Diagnoses Unspecified mood [affective] disorder F39 Generalized anxiety disorder F41.1 Time Spent (min) 50
--- OUTSIDE RECORDS SUMMARY | 2025-08-12 16:26 | XMS_ITS | Clinical Summary ---
Author Organization [facility] Address [address] [facility] [address] [place] [address] Care Team Providers Care Pick Pulling Machine Operator Name Role Phone Namrata Dixon MD Primary Care Provider [phone] Allergies Active Allergy Reactions Criticality Noted Date [...] Encounters Date Type Department Care Team Description 08/05/2025 1:00 PM EDT Clinical Support [facility] [address] [address] Margie Garcia LICSW 08/05/2025 Travel 06/19/2025 1:30 PM EDT Telemedicine [facility] Pain [address] [place] [address] Dale Alvarez MD Sacroiliac joint pain (Primary Dx) 06/12/2025 Telephone [facility] Pain [address] [place] [address] Destiney Ventura RN Pre Visit Intake 06/04/2025 10:45 AM EDT Office Visit [facility] Otolaryngology [address] [place] [address], 1st [place] [address] Familia Mauro MD Chronic rhinitis (Primary Dx); Hypertrophy of nasal turbinates; Nasal valve stenosis; Deviated nasal septum; Nasal septal perforation 06/04/2025 Travel from Last 3 Months Family History [...] EDT Inhaled Oxygen Concentration - - Weight 79.5 kg (175 lb 3.2 oz) 08/05/2025 12:55 PM EDT Height 157.5 cm (5' 2 ) 08/05/2025 12:55 PM EDT Body Mass Index 32.04 08/05/2025 12:55 PM EDT Plan of Treatment Upcoming Encounters Date Type Department Care Team (Late st Contact Info) Description 08/13/2025 11:30 AM EDT Office Visit [facility] [address] [facility] [address] [place] [address] Kati Murphy NP [address] [place] [address] 10/02/2025 11:00 AM EST Office Visit [facility] Dermatology [place] [address] [facility] [place] [id number] Jeni Pearce MD [address] [facility] [address] [place] [address] 10/09/2025 8:15 AM EST Telemedicine [facility] [address] [facility] [address] [place] [address] Margie Garcia WEIGHT TRAINING INSTRUCTOR [address] [facility] [address] Dept[address] [facility] [place] [address] 11/24/2025 1:15 PM EST Office Visit [facility] Dermatology [address] [place] [address] Yarelis Hassan MD [address] [place] [address] 04/02/2026 11:00 AM EDT Office Visit [facility] Rheumatology [address] [facility] [address] 3rd [place] [id number] Jasper Nava MD [address] [facility] [address] [place] [address] Health Maintenance Due Date Last Done Comments [...] Mammogram 2021 Depression Screening 11/20/2024 COVID-19 Vaccine (1 - 2023-2 5 season) 2025 Influenza Vaccine (#1) 2025 [...] patient's age to complete this topic Insurance [facility] Care Teams Pick Pulling Machine Operator Relationship Specialty Start Date End Date Namrata Dixon MD [address] [place] [id number] PCP - General Bakelite Molder 03/24/25
--- OUTSIDE RECORDS SUMMARY | 2025-08-12 16:26 | XMS_ITS | Clinical Summary ---
Author Organization [facility] Address [address] [place] [address] Care Team Providers Care Allergist/Immunologist Name Role Phone Namrata Dixon MD Primary Care Provider [phone] Source Comments PLEASE NOTE, if this patient [...] mg by mouth every morning 5 Active DAILY-CHAUNCEY, WITH FOLIC ACID, 400 [...] APPLY TO FACE EVERY DAY 5 Active benzoyl peroxide (BENZAC AC) 10 % APPLY TO FACE THEN RINSE TWICE A DAY 5 Active busPIRone (BUSPAR) 5 mg tablet Take 5 mg by mouth 3 (three) times daily 5 Active clindamycin phosphate (CLINDAGEL) 1 % [...] Amount: 50 mg 60 Capsule 5 Active acetaminophen (TYLENOL 8 HOUR) 650 mg CR tablet Take 1 Tablet by mouth every 12 (twelve) hours. 60 Tablet 1 5 Active semaglutide (OZEMPIC) 0.25 mg or 0.5 mg (2 mg/3 mL) pen injector Inject 0.5 mg into the skin once a week. 3 mL 1 5 Active cetirizine (ZYRTEC) 10 mg tablet Take 1 Tablet by mouth once daily as needed for allergies. 90 Tablet 5 Active OZEMPIC 0.25 mg or 0.5 mg (2 mg/3 mL) pen injector Inject 0.5 mg into the skin once a week 5 025 Discontin ued(Resou rce availabil ity/Cost) acetaminophen (TYLENOL 8 HOUR) 650 mg CR tablet Take 650 mg by mouth every 12 (twelve) hours 5 025 Discontin ued(Reord er (E-Cancel Not Sent)) cetirizine (ZYRTEC) 10 mg tablet Take 10 mg by mouth once daily as needed 5 025 Discontin ued(Reord er (E-Cancel Not Sent)) cetirizine (ZYRTEC) 10 mg tablet Take 1 Tablet by mouth once daily as needed for allergies. 90 Tablet 5 025 Discontin ued(Reord er (E-Cancel Not [...] pain clinic and Rheum here in the [facility]. Referrals placed. Obesity without serious comorbidity 03/25/2025 Assessment & Plan (03/25/2025 2:21 PM EDT): Current BMI 32. Patient hoping to reestablish with a weight clinic here in the [facility]. She underwent bariatric surgery several years ago outside of [place], and continues on a multivitamin and Ca/Vit [...] and a pain clinic here in the [facility]. Referrals placed. Sacroiliac joint dysfunction 03/25/2025 Assessment & Plan (03/25/2025 2:21 PM EDT): Patient had tremendous benefit working with her prior pain clinic which was providing cortisone injections. She is hoping to newly establish with a pain clinic here in the [place] area where she can continue these treatments. Reviewed the importance of getting outside records and CD with any prior imaging in preparation for new appointments. PCOS (polycystic ovarian syndrome) 03/25/2025 Assessment & Plan (03/25/2025 2:21 PM EDT): Patient reports a history of PCOS for which she is on Metformin 500mg BID. Continues to have very irregular periods. Was previously following with OBGYN in [place], all paps have been reportedly normal with [...] 03/20/2025 1:11 PM EDT Plan of Treatment Upcoming Encounters Date Type Department Care Team (Late st Contact Info) Description 08/20/2025 11:55 AM EDT Office Visit [facility] Medicine [address] [place] [address] Namrata Dixon MD [address] [place] [address] 11/26/2025 11:05 AM EST Office Visit [facility] [address] [place] [address] Namrata Dixon MD [address] [place] [address] Health Maintenance Due Date Last Done Comments Anxiety Screening 1981 Diabetes Screening 1981 HPV Screening 1981 Hepatitis C Screening 1981 Lipid Screening 1981 TSH Monitoring 1981 HIV Screening 1996 Imm-DTaP/Tdap/Td (1 - Tdap) 2000 Imm-Hepatitis B (1 of 3 - 19+ 3-dose series) 0 Imm-HPV (1 - 3-dose SCDM series) 2008 Breast Cancer Screening (Mammogram) 2021 Alcohol and Drug Screen 11/20/2024 Depression Monitoring 06/20/2025 03/20/2025 [id number] ( season) 2025 Imm-Influenza (#1) 2025 Cervical Cancer Screening 11/15/2025 [...] Most Recently Relevant to Health Maintenance Insurance [facility] Member Subscriber Plan / Payer (Ef fective 2024-Present) Name:Jaz Lynch Relation to Subscriber:Self Name:Jaz Lynch Payer ID:[id number] Group ID:Not on file Type:Medicaid Address: [facility] [address] [place] [address] Care Teams Allergist/Immunologist Relationship Specialty Start Date End Date Namrata Dixon MD [address] [place] [phone] PCP - General Internal Medicine 03/20/25
--- OUTSIDE RECORDS SUMMARY | 2025-08-12 16:26 | XMS_ITS | Clinical Summary ---
Author Organization [facility] Address [address] [place] [address] Phone Care Team Providers Care Color Control Supervisor Name Role Phone Elke Cross MD Unavailable [phone] Social History Tobacco Use Types Packs/Day Years Used Date Smoking Tobacco: Never Assessed Comments Unknown Sex and Gender Information Value Date Recorded Sex Assigned at Female 06/10/2024 4:31 PM EDT Legal Sex Female 4:17 PM EDT Gender Identity Female 06/10/2024 4:31 PM EDT Sexual Orientation Patient chooses not to answer 08/05/2025 4:47 AM EDT Sexual Orientation Straight 08/05/2025 4: 47 AM EDT Plan of Treatment Health Maintenance Due [...] M series) 2008 MAMMOGRAM 2021 COVID-19 Vaccine (2023-2 5 season) 2025 INFLUENZA VACCINE (#1) 2025 [...] age to complete this topic Care Teams Color Control Supervisor Relationship Specialty Start Date End Date Elke Cross MD [address] [place] [id number] PCP - Insurance 02/06/25
--- OUTSIDE RECORDS SUMMARY | 2025-08-12 16:26 | XMS_ITS | Patient Health Record ---
Author Organization [facility] Address [address] [place] [address] Care Team Providers Care Pull Over Machine Operator Name Role Phone MANFRED MANRIQUEZ Primary Care Provider Unavail able GABRIELA NOLAN Unavailable [phone] Bartolome Farooq Unavailable [phone] Allergies Allergen (clinical drug ingredient) Drug/Non Drug [...] W/U Status Risk Notes Problem Allergic rhinitis (54750947) Other allergic rhinitis (J30.89) Active confirmed Problem Chronic allergic conjunctivitis (77887433) Other chronic allergic conjunctivitis (H10.45) Active confirmed Vital Signs Temperature 98 degrees Fahrenheit 05/14/2025 Height 63 in 05/14/2025 Weight 182 lbs 05/14/2025 BMI 32.24 kg/m2 05/14/2025 Encounters Encounter Location Date Provider Diagnosis [facility] [address] 1 [place] [address] 04/16/2025 Bartolome Farooq Other chronic allerg ic conjunctivitis H10.45 ; Other allergic rhinitis J30.89 and Deviated nasal septum J34.2 [facility] [address] 1 [place] [address] 04/23/2025 GABRIELA NOLAN Other allergic rhini tis J30.89 and Other chronic allergic conjunctivitis H10.45 [facility] [address] [place] [address] 05/14/2025 GABRIELA NOLAN Other chronic allerg ic conjunctivitis H10.45 ; Other allergic rhinitis J30.89 and Deviated nasal septum J34.2 [facility] [address] 1 [place] [address] 05/15/2025 GABRIELA NOLAN Assessments Encounter Date Diagnosis (ICD Code) Assessment Notes Treatment Notes Treatment Clinical Notes Section Notes 04/16/2025 Other allergic rhinitis (ICD-10 - J30.89) Moderately-controlled with Cetirizine 10 mg PO PRN + Flonase with good sx relief. Patient was on SCIT with outside hay rake operator from 04/2023 - 04/2024. She is interested [...] Patient was also recommended to contact outside hay rake operator to coordinate transfer of vials, if applicable, [...] She was previously on SCIT with outside hay rake operator from 04/2023 - 04/2024. Allergy skin prick [...] relief. Patient was on SCIT with outside hay rake operator from 04/2023 - 04/2024. She is interested [...] Patient was also recommended to contact outside hay rake operator to coordinate transfer of vials, if applicable, to our [facility]. - Allergen avoidance: If financially [...] Provider Name:Bartolome Farooq, 03/2025 01:00:00 PM, [address], [place], [address], Insurance Providers Payer Name Payer Address Payer Phone Subscriber Number Group Number Insured Name Patient Relationship to Insured Coverage Start Date Coverage End Date [facility] [address] [facility] [address] [place] [phone] [id number] Jaz Lynch Self - patient is the insured Medical (General) History Medical History History ICD Code Cervical Radiculopathy Epicondylitis IBS Fibromyalgia Scoliosis Restless leg syndrome Hypothyroidism GERD Anxiety Depression PTSD Binge Eating Disorder Deviated Septum Surgical History Surgery Date(Month/Year) Deviated Septum Surgery 2015 Bariatric Surgery 2021 Shoulder surgery 2015 Shoulder surgery 2018
--- OUTSIDE RECORDS SUMMARY | 2025-08-12 16:26 | XMS_ITS | Referral Summary ---
Author Organization [facility] Address [address] [place] [address] Phone Care Team Providers Care Cable Splicer Apprentice Name Role Phone Elke Cross MD Unavailable [phone] Social History Tobacco Use Types Packs/Day Years [...] 4: 47 AM EDT Plan of Treatment Not on file Care Teams Cable Splicer Apprentice Relationship Specialty Start Date End Date Elke Cross MD [address] [place] [address] PCP - Insurance 02/06/25
--- OUTSIDE RECORDS SUMMARY | 2025-08-12 16:26 | XMS_ITS | Patient Health Record ---
Author Organization [facility] Address [address] [place] [address] Care Team Providers Care Regulatory Affairs Director Name Role Phone America HYATT, Elke Primary Care Provider Vishal Salinas Jr [phone] Allergies Allergen (clinical drug ingredient) Drug/Non Drug [...] Problem Status W/U Status Risk Notes Problem [id number] Dysphagia (R13.10) Active confirmed Problem [id number] Abnormal upper gastrointestinal barium series (R93.3) Active confirmed Encounters Encounter Location Date Provider Diagnosis [facility] [address] [place] [address] 09/12/2024 Vishal Hutchinson Jr Plan Of Treatment Future Test Test Name Order Date UPPER GI ENDOSCOPY 02/22/2017 Insurance Providers Payer Name Payer Address Payer Phone Subscriber Number Group Number Insured Name Patient Relationship to Insured Coverage Start Date Coverage End Date [facility] [address] [address] [place], [place] [id number] LUCY WALSH Self - patient is the insured MEDICAID OF [facility] [address] [place] [address] [phone] [id number] LUCY WALSH Self - patient is the insured Medical (General) History Medical History History ICD Code hypothyroidism attention deficit disorder bipolar disorder PTSD vitamin D deficiency carpal tunnel syndrome menorrhagia
--- OUTSIDE RECORDS SUMMARY | 2025-08-12 16:26 | XMS_ITS | Clinical Summary ---
Author Organization [facility] Address [address] [place] [address] Care Team Providers Care Windows Security Analyst Name Role Phone Unavailable Primary Care Provider [...] patient's age to complete this topic [facility]
== END 2025-08-12 14:14 | disposition home or self-care (01) ==
LOC: HO.HBST 13:24
PROVIDERS: PCP Internal Medicine; Visit Provider Counselor Mental Health
DX: F39 Unspecified mood [affective] disorder (principal); F41.1 Generalized anxiety disorder
CPT/HCPCS: 90834

== ENCOUNTER 2025-08-26 13:17 | Outpatient (AMB) | payer OTHER, SELFPAY ==
--- OUTSIDE RECORDS SUMMARY | 2024-05-13 06:20 | XMS_ITS ---
Author Organization [facility] Address [address] [place] [phone] Care Team Providers Care Manager Long Term Care Name Role Phone America HYATT, Elke Primary Care Provider Vishal Salinas Jr [phone] REASON FOR VISIT IBS Encounters Encounter Location Date Provider Diagnosis [facility] [address] [place] [phone] 05/13/2024 Vishal Hutchinson Jr Plan Of Treatment No Information Progress Notes * LUCY WALSHDOB:1980 (45 yo F)Acc No.[id number]:05/13/2024 Progress Notes Patient: LUCY MARTINEZ Provider: Amaris Hutchinson MD :1980 A ge:43 Y S ex:Female Date:05/13/2024 Address:[address] [place], [place] [phone] Pcp:Elke Cross MD Subjective: * Chief Complaints: [...] 0 05/13/2024 Generated for Printi ng/Faxing/eTransmitting on: 04:16 PM EDT
--- OUTSIDE RECORDS SUMMARY | 2024-05-29 05:40 | XMS_ITS ---
Author Organization [facility] Network Address [address] [facility] Floor 1 [place] [address] Care Team Providers Care Rfid Analyst Name Role Phone MANFRED MANRIQUEZ Primary Care Provider GABRIELA Maya [phone] REASON FOR VISIT e/no ref req c0 V, e/no ref req c0 V, e/no ref req c0 V Encounters Encounter Location Date Provider Diagnosis [facility] Network [address] [facility] Floor 1 [place] [address] 05/29/2024 GABRIELA NOLAN Plan Of Treatment Next Appt Details Provider Name:Bartolome Farooq, 03/2025 01:00:00 PM, [address] [facility], [address] 1, [place], [address], Progress Notes * Jaz LYNCH LDOB: 1 (45 yo F)Acc No.[id number]:05/29/2024 Patient: Jaz Espinal Provider: Domingo Nolan MD :1980 A ge:44 Y S ex:Female Date:05/29/2024 Address:[address] [place], [place] [phone] Pcp:MANFRED MANRIQUEZ Subjective: * Chief Complaints: * [...] Electronic signature of GABRIELA NOLAN M.D. on 08/26/2025 at 04:16 PM EDT Sign off status: Pending * Provider: Domingo Nolan MD Date: 0 05/29/2024 Generated for Aravind ventura/Nisha/Devi on: 1 04:16 PM EDT
--- OUTSIDE RECORDS SUMMARY | 2024-05-29 07:00 | XMS_ITS ---
Author Organization [facility] Network Address [address] [facility] Floor 1 [place] [address] Care Team Providers Care Baffle Installer Name Role Phone MANFRED MANRIQUEZ Primary Care Provider Unavail GABRIELA Alvarez Unavailable [phone] REASON FOR VISIT e/no ref req c0 V Encounters Encounter Location Date Provider Diagnosis [facility] Network [address] [facility] Floor 1 [place] [address] 05/29/2024 GABRIELA NOLAN Plan Of Treatment Next Appt Details Provider Name:Bartolome Farooq, 03/2025 01:00:00 PM, [address] [facility], Floor 1, [place], [address], Progress Notes * Jaz LYNCH LDOB: 1 (45 yo F)Acc No.[id number]:05/29/2024 Patient: Jaz Espinal Provider: Domingo Nolan MD :1980 A ge:44 Y S ex:Female Date:05/29/2024 Address:[address] [place], [place] [phone] Pcp:MANFRED MANRIQUEZ Subjective: * Chief Complaints: * e /no ref req c0 V * Electronic signature of GABRIELA NOLAN M.D. on 08/26/2025 at 04:16 PM EDT Sign off status: Pending * Provider: Domingo Nolan MD Date: 0 05/29/2024 Generated for Printi ng/Faxing/eTransmitting on: 1 04:16 PM EDT
--- OUTSIDE RECORDS SUMMARY | 2024-09-12 10:35 | XMS_ITS ---
Author Organization [facility] Address [address] [place] [phone] Care Team Providers Care Assistant Professor Of Geography Name Role Phone America HYATT, Elke Primary Care Provider Vishal Salinas Jr REASON FOR VISIT Patient presents today for IBS Encounters Encounter Location Date Provider Diagnosis [facility] [address] [place] [phone] 09/12/2024 Vishal Hutchinson Jr Plan Of Treatment No Information Progress Notes * LUCY WALSHDOB:1980 (45 yo F)Acc No.[id number]:09/12/2024 Progress Notes Patient: LUCY MARTINEZ Provider: Amaris Hutchinson MD :1980 A ge:44 Y S ex:Female Date:09/12/2024 Address:[address] [place], [place] [phone] Pcp:Elke Cross MD Subjective: * Chief Complaints: [...] MD Date: Generated for Printi ng/Faxing/eTransmitting on: 04:15 PM EDT
--- NOTE | 2025-08-26 13:00 | A.OFFWM_ITS ---
Intake Intake Visit Reasons: VIDEO PO LSG 02/06/22 Allergies cat dander (CAT DANDER) Allergy (Mild, Verified 01/02/25 12:56) EYES- TEAR, ITCHY, face swells dog dander (DOG DANDER) Allergy (Mild, Verified 01/02/25 12:56) EYES- TEAR, ITCHY, hives duloxetine (From CYMBALTA) Adverse Reaction (Intermediate, Verified 01/02/25 12:56) VAGINAL BLEEDING PFSH Medical History Bilateral knee pain Sacroiliac pain Positive DANIELE (antinuclear antibody) Refused influenza vaccine PTSD (post-traumatic stress disorder) Insomnia PONV (postoperative nausea and vomiting) Gastric ulcer Cholelithiasis Sacroiliitis Spondylosis of lumbar region without myelopathy or radiculopathy Scoliosis Goiter Restless leg syndrome ADHD (attention deficit hyperactivity disorder) Anxiety OCD (obsessive compulsive disorder) Hypertension GERD (gastroesophageal reflux disease) Vitamin D deficiency PCOS (polycystic ovarian syndrome) Body mass index [BMI]40.0-44.9, adult Irritable bowel syndrome with diarrhea Environmental and seasonal allergies Breast cancer screening by mammogram Dyslipidemia Gastritis Morbid obesity Hirsutism Telogen effluvium Heartburn Degenerative disc disease, lumbar Fibromyalgia Bipolar disorder Rosacea Acquired hypothyroidism Surgical History S/P laparoscopic sleeve gastrectomy Hx of bariatric surgery Hx of shoulder surgery Hx of cholecystectomy Hx of colonoscopy Miscarriage History of nasal surgery History of rotator cuff surgery Family History Father Diabetes mellitus Mother OCD (obsessive compulsive disorder) EITAN (generalized anxiety disorder) HTN (hypertension) Cancer Cervical cancer Family/Other FH: mental illness Maternal Grandmother EITAN (generalized anxiety disorder) Glaucoma Mental health disorder Maternal Grandfather Alzheimer disease Maternal Aunt Hypothyroidism Mental health disorder Paternal Grandmother Unknown family medical history Paternal Grandfather Unknown family medical history Sister Hypothyroidism Paternal Aunt Substance use disorder Maternal Uncle Substance use disorder Social History Household Members Other:: brother Housing: Apartment Are you a primary nurse healthcare manager to a significant other at home: No Do you presently have visiting nurse or other home services: No Alcohol intake: never Patient Tobacco Use Status: Former Tobacco user Tobacco use type: Cigarette Cigarettes Per Day: 20 Years Smoked: 3 e-Cigarette/Vaping Use: Never Used service: No Current occupational status: disabled Cognitive needs: No Hearing needs: No Vision needs: Yes Behavioral Health Assessment Weight Management Therapy Therapy Notes Details Subjective: The patient reports feeling generally well and less anxious, though she continues to struggle with mornings. She has established care at a closer weight-management clinic but is uncertain whether she will continue there or remain with this practice. She inquired about the possibility of continuing behavioral health services here if she receives weight management care elsewhere. She is experiencing increased stress related to her relationship and has had more difficulty managing her fibromyalgia symptoms, resulting in missing a few workouts. She remains on Semaglutide. Objective: The patient attended her behavioral health follow-up via telehealth. Interventions focused on identifying specific morning challenges and developing a structured morning routine to improve consistency and reduce anxiety. CBT- based strategies were used to address negative thought patterns related to stress and self-efficacy, and to help her reframe setbacks with exercise as temporary and manageable. We explored stress management techniques, including relaxation exercises and pacing strategies for fibromyalgia. The patient was provided psychoeducation on the importance of self-compassion and flexibility in her routine, especially during periods of increased stress or physical discomfort. We also discussed her options for ongoing behavioral health support and clarified that she cannot continue these services here if she transitions her weight management care to another clinic. Assessment/Response: * Mental status: Alert and oriented, mood is stable, affect congruent, thought process logical and goal-directed, no evidence of psychosis. * Risk reported/identified: No suicidal or homicidal ideation, no self-harm be haviors reported. Assessment & Plan Assessment & Plan (1) Unspecified mood [affective] disorder: Code(s): F39 - Unspecified mood [affective] disorder (2) Generalized anxiety disorder: Code(s): F41.1 - Generalized anxiety disorder Plan Continue behavioral health sessions on a bi-weekly basis. * Next appointment scheduled for 09/09/25 via telehealth. Telehealth Telehealth Telehealth Platform: [facility] Location of provider rendering services: other (Home office. [place], [place]) Location of patient: address on file Patient Identification confirmed using: Name, : Yes Telehealth method: video Patient verbally consented to treatment: Yes Patient verbally consented to billing insurance company: Yes Patient informed of any privacy concerns related to visit: Yes Minutes spent on Phone/Video with Pt.: 60 [place] [address] Tele Psytx >53 mins Patient Type Established Diagnoses Unspecified mood [affective] disorder F39 Generalized anxiety disorder F41.1 Time Spent (min) 60
--- OUTSIDE RECORDS SUMMARY | 2025-08-26 16:16 | XMS_ITS | Patient Health Record ---
Author Organization [facility] Network Address [address] 1 [place] [address] Care Team Providers Care Strategic Planning Specialist Name Role Phone MANFRED MANRIQUEZ Primary Care Provider Unavail able GABRIELA NOLAN Unavailable [phone] Bartolome Farooq Unavailable [phone] Allergies Allergen (clinical drug ingredient) Drug/Non Drug [...] W/U Status Risk Notes Problem Allergic rhinitis (22728919) Other allergic rhinitis (J30.89) Active confirmed Problem Chronic allergic conjunctivitis (90186425) Other chronic allergic conjunctivitis (H10.45) Active confirmed Vital Signs Temperature 98 degrees Fahrenheit 05/14/2025 Height 63 in 05/14/2025 Weight 182 lbs 05/14/2025 BMI 32.24 kg/m2 05/14/2025 Encounters Encounter Location Date Provider Diagnosis [facility] [address] 1 [place] [address] 04/16/2025 Bartolome Farooq Other chronic allerg ic conjunctivitis H10.45 ; Other allergic rhinitis J30.89 and Deviated nasal septum J34.2 [facility] Network [address] 1 [place] [address] 04/23/2025 GABRIELA NOLAN Other allergic rhini tis J30.89 and Other chronic allergic conjunctivitis H10.45 [facility] Network [address] 1 [place] [address] 05/14/2025 GABRIELA NOLAN Other chronic allerg ic conjunctivitis H10.45 ; Other allergic rhinitis J30.89 and Deviated nasal septum J34.2 [facility] [address] 1 [place] [address] 05/15/2025 GABRIELA NOLAN Assessments Encounter Date Diagnosis (ICD Code) Assessment Notes Treatment Notes Treatment Clinical Notes Section Notes 04/16/2025 Other allergic rhinitis (ICD-10 - J30.89) Moderately-controlled with Cetirizine 10 mg PO PRN + Flonase with good sx relief. Patient was on SCIT with outside service support representative from 04/2023 - 04/2024. She is interested [...] Patient was also recommended to contact outside service support representative to coordinate transfer of vials, if applicable, [...] She was previously on SCIT with outside service support representative from 04/2023 - 04/2024. Allergy skin prick [...] relief. Patient was on SCIT with outside service support representative from 04/2023 - 04/2024. She is interested [...] Patient was also recommended to contact outside service support representative to coordinate transfer of vials, if applicable, to our [facility]. - Allergen avoidance: If financially able [...] Provider Name:Bartolome Farooq, 03/2025 01:00:00 PM, [address], [place], [address], Insurance Providers Payer Name Payer Address Payer Phone Subscriber Number Group Number Insured Name Patient Relationship to Insured Coverage Start Date Coverage End Date [facility] [address] [facility] [address] [place] [id number] Jaz Lynch Self - patient is the insured Medical (General) History Medical History History ICD Code Cervical Radiculopathy Epicondylitis IBS Fibromyalgia Scoliosis Restless leg syndrome Hypothyroidism GERD Anxiety Depression PTSD Binge Eating Disorder Deviated Septum Surgical History Surgery Date(Month/Year) Deviated Septum Surgery 2015 Bariatric Surgery 2021 Shoulder surgery 2015 Shoulder surgery 2018
--- OUTSIDE RECORDS SUMMARY | 2025-08-26 16:16 | XMS_ITS | Patient Health Record ---
Author Organization [facility] Address [address] [place] [address] Care Team Providers Care Leather Cartridge Belt Maker Name Role Phone [place] HYATT, Elke [...] Problem Status W/U Status Risk Notes Problem [id number] Dysphagia (R13.10) Active confirmed Problem [id number] Abnormal upper gastrointestinal barium series (R93.3) Active confirmed Encounters Encounter Location Date Provider Diagnosis [facility] [address] [place] [address] 09/12/2024 Vishal Hutchinson Jr Plan Of Treatment Future Test Test Name Order Date UPPER GI ENDOSCOPY 02/22/2017 Insurance Providers Payer Name Payer Address Payer Phone Subscriber Number Group Number Insured Name Patient Relationship to Insured Coverage Start Date Coverage End Date [facility] [address] [address] [place], [place] [id number] LCUY WALSH Self - patient is the insured MEDICAID OF [facility] [address] [place] [address] [id number] LUCY WALSH Self - patient is the insured Medical (General) History Medical History History ICD Code hypothyroidism attention deficit disorder bipolar disorder PTSD vitamin D deficiency carpal tunnel syndrome menorrhagia
--- OUTSIDE RECORDS SUMMARY | 2025-08-26 16:16 | XMS_ITS | Clinical Summary ---
Author Organization [facility] Address [address] [place] [address] Phone Care Team Providers Care Advertising Material Distributor Name Role Phone Elke Cross MD Unavailable [phone] Social History Tobacco Use Types Packs/Day Years [...] Hepatitis C Antibody Lifetim e Screening 1981 LEEP 1981 LIPID PANEL 1981 THRIVE SCREENING 1981 [...] age to complete this topic Care Teams Advertising Material Distributor Relationship Specialty Start Date End Date Elke Cross MD [facility] [address] PCP - Insurance 02/06/25
--- OUTSIDE RECORDS SUMMARY | 2025-08-26 16:16 | XMS_ITS | Clinical Summary ---
Author Organization [facility] Address [address] [facility] [address] [place] [address] Care Team Providers Care Sales Expert Name Role Phone Namrata Dixon MD Primary Care Provider [phone] Allergies Active Allergy Reactions Criticality Noted Date Comments Duloxetine 04/02/2025 Medications cetirizine (ZyrTEC) 10 mg tablet Take 10 mg by mouth once daily. 06/03/20 20 Active metFORMIN (Glucophage) 500 mg tablet Take [...] AFTER BENZOYL PEROXIDE CLEANSER 12/04/19 25 Active spironolactone (Aldactone) 100 mg tablet Take 100 mg by mouth once daily. Active albuterol 90 mcg/actuation inhaler Inhale 2 puffs every 6 (six) hours if needed for wheezing. Active ivermectin 1 % creamIndication s:Rosacea Apply topically once to twice daily to affected areas 60 g 04/03/20 Active sulfacetamide sodium-sulfur 10-1 % cleanserIndicat ions:Rosacea Use to wash affected areas once to twice daily. 170.1 g 04/03/20 Active ketoconazole (NIZOral) 2 % shampooIndicati ons:Seborrheic dermatitis Use to wash scalp daily as needed. May leave in for 3-5 minutes before rinsing out. 120 mL 04/03/20 Active Vraylar 1.5 mg capsule Take 1.5 mg by mouth once daily. Active semaglutide (Ozempic) 1 mg/dose (4 mg/3 mL) pen-injectorInd ications:Bariat everardo surgery status,Class 3 severe obesity with serious comorbidity and body mass index (BMI) of 40.0 to 44.9 in adult, unspecified obesity type,BMI 31.0-31.9,adult Inject 1 mg under the skin 1 (one) time per week. 3 mL 3 08/13/20 25 026 Active Ozempic 0.25 mg or 0.5 mg (2 mg/3 mL) pen-injector Inject 0.5 mg under the skin 1 (one) time per week. 03/18/20 25 025 Discontinued Active Problems Problem Noted Date Diagnosed Date Bariatric surgery status 08/13/2025 Class 3 severe obesity with serious comorbidity and body mass index (BMI) of 40.0 to 44.9 in adult 08/13/2025 BMI 31.0-31.9,adult 08/13/2025 PCOS (polycystic ovarian syndrome) 08/13/2025 Hypertension 08/13/2025 Hyperlipidemia 08/13/2025 Osteoarthritis 08/13/2025 Fibromyalgia 04/02/2025 Encounters Date Type Department Care Team Description 08/18/2025 Telephone [facility] Weight and Wellness [address] [facility] [address] [place] [address] Kati Murphy NP PA for Ozempic 1mg 08/13/2025 11:30 AM EDT Office Visit [facility] [address] [address] Kati Murphy NP Class 3 severe obesity with serious comorbidity and body mass index (BMI) of 40.0 to 44.9 in adult, unspecified obesity type (Primary Dx); Bariatric surgery status; BMI 31.0-31.9,adult; PCOS (polycystic ovarian syndrome); Hypertension, unspecified type ; Hyperlipidemia, unspecified hyperlipidemia type ; Osteoarthritis, unspecified osteoarthritis type, unspecified site; Class 3 severe obesity with serious comorbidity and body mass index (BMI) of 40.0 to 44.9 in adult 08/13/2025 Travel 08/05/2025 1:00 PM EDT Clinical Support [facility] [address] [address] Margie Garcia LICSW 08/05/2025 Travel 06/19/2025 1:30 PM EDT Telemedicine [facility] Pain [address] [place] [address] Dale Alvarez MD Sacroiliac joint pain (Primary Dx) 06/12/2025 Telephone [facility] Pain [address] [place] [address] Destiney Ventura RN Pre Visit Intake 06/04/2025 10:45 AM EDT Office Visit [facility] Otolaryngology [address] [facility] 1st [place] [address] Familia Mauro MD Chronic rhinitis (Primary Dx); [...] Sign Reading Time Taken Comments Blood Pressure 100/70 08/13/2025 11:30 AM EDT Pulse 108 08/13/2025 11:30 AM EDT Temperature 36.3 C (97.3 F) 08/13/2025 11:30 AM EDT Respiratory Rate - - Oxygen Saturation 100% 04/02/2025 10:52 AM EDT Inhaled Oxygen Concentration - - Weight 79.9 kg (176 lb 1.6 oz) 08/13/2025 11:30 AM EDT 176.1 lb Height 160 cm (5' 3 ) 08/13/2025 11:30 AM EDT Body Mass Index 31.19 08/13/2025 11:30 AM EDT Plan of Treatment Upcoming Encounters Date Type Department Care Team (Late st Contact Info) Description 10/02/2025 11:00 AM EST Office Visit [facility] Dermatology [place] [address] [place] [address] Jeni Pearce MD [address] [facility] [address] [place] [address] 10/09/2025 8:15 AM EST Telemedicine [facility] Weight [facility] Wellness [address] [facility] [address] [place] [address] Margie Garcia LICSW 91 [facility] [address] Dept. [facility] Weight [place] [address] 11/24/2025 1:15 PM EST Office Visit [facility] Dermatology [address] [place] [address] Yarelis Hassan MD [address] [place] [address] 12/04/2025 11:00 AM EST Telemedicine [facility] Weight and Wellness [address] [facility] [address] [place] [address] Kati Murphy, BRANDON [address] [place] [id number] 12/04/2025 3:00 PM EST Telemedicine [facility] Weight [facility] Wellness [address] [facility] [address] [place] [address] [facility] [address] Dept. [facility] Weight [place] [address] 02/11/2026 11:30 AM EDT Office Visit [facility]ness [address] [place] [address] [address] [place] [address] Kati Murphy, BRANDON [address] [place] [id number] 04/02/2026 11:00 AM EDT Office Visit [facility] Rheumatology [address] [facility] [address] [place] [address] Jasper Nava MD [address] [facility] [address] [place] [address] Health Maintenance Due Date Last Done Comments [...] Mammogram 2021 Depression Screening 11/20/2024 COVID-19 Vaccine ( - 2023-2 5 season) 2025 Influenza Vaccine [...] patient's age to complete this topic Insurance [facility] [employer] Care Teams Sales Expert Relationship Specialty Start Date End Date Namrata Dixon MD [address] [place] [phone] PCP - General Compressor Mechanic Bus 03/24/25
--- OUTSIDE RECORDS SUMMARY | 2025-08-26 16:16 | XMS_ITS | Encounter Summary ---
Author Organization [facility] Address [address] [facility] [address] [place] [address] Care Team Providers Care Construction Equipment Overhauler Name Role Phone Namraat Dixon MD Primary Care Provider [phone] Reason for Visit * Reason Onset Date Comments PA for Ozempic 1mg 08/18/2025 Encounter Details Date Type Department Care Team (Late st Contact Info) Description 08/18/2025 Telephone [facility] Weight and Wellness [address] [facility] [address] [place] [address] Kati Murphy, BRANDON [address] [facility] [place] [address] PA for Ozempic 1mg Social History Tobacco Use Types Packs/Day Years Used Date Smoking Tobacco: Never Smokeless Tobacco: Never Alcohol Use Standard Drinks/Week Comments Never 0 (1 standard drink = 0.6 oz pur e alcohol) Comments Unknown Sex and Gender Information Value Date Recorded Sex Assigned at Female 04/08/2025 9:56 AM EDT Legal Sex Female 1:16 PM EDT Gender Identity Female 04/08/2025 9:56 AM EDT Sexual Orientation Not on file documented as of this encounter Miscellaneous Notes * Telephone Encounter - Ghazala Florez [place] - 08/22/2025 11:26 AM EDT I called Sindy at [phone] to check the status of the PA. I was transferred to [employer]. The automated system said it has been approved. Valid 08/18/25 to 02/14/26. . I called the patient using [employer], . A voicemail was left for her lettingher know of the approval and that the pharmacy should notify her when it's ready for nut picker. * Telephone Encounter - Ghazala Florez MA - 08/18/2025 12:52 PM EDT I did not initiate the PA request for Ozempic. Maybe have been started through [employer]. I did fax the clinic note from 08/13/25 and the prescription for Ozempic to the [facility] PA department at [phone]. * Telephone Encounter - Ghazala Florez MA - 08/18/2025 10:25 AM EDT I tried to submit a request to [facility] through [employer] and got this response: PA has already submitted and is in process for this patient and drug.;CaseId:[id number];Status:In Process; documented in this encounter Plan of Treatment Upcoming Encounters Date Type Department Care Team (Late st Contact Info) Description 10/02/2025 11:00 AM EST Office Visit [facility] Dermatology [place] [address] [place] [phone] Jeni Pearce MD [address] [facility] [address] [place] [address] 10/09/2025 8:15 AM EST Telemedicine [facility] Weight and Wellness [address] [facility] [address] [place] [address] Margie Garcia LICSW 91 [facility] [address] Dept[address] [facility] [place] [address] 11/24/2025 1:15 PM EST Office Visit [facility] Dermatology [address] [place] [address] Yarelis Hassan MD [address] [place] [address] 12/04/2025 11:00 AM EST Telemedicine [facility] Weight and Wellness [address] [place] [address] Kati Murphy, BRANDON [address] [facility] [address] [place] [id number] 12/04/2025 3:00 PM EST Telemedicine [facility] Weight and Wellness [address] [place] [address] [place] [address] Dept[address] [facility] [place] [address] 02/11/2026 11:30 AM EDT Office Visit [facility] Weight and Wellness [address] [place] [address] Kati Murphy NP [address] [facility] [address] [place] [id number] 04/02/2026 11:00 AM EDT Office Visit [facility] Rheumatology [address] [facility] 3rd [place] [phone] Jasper Nava MD [address] [facility] [address] [place] [address] documented as of this encounter Visit Diagnoses Not on filedocumented in this encounter Care Teams Construction Equipment Overhauler Relationship Specialty Start Date End Date Namrata Dixon MD [address] [place] [address] PCP - General Splitter Machine 03/24/25 documented as of this encounter
--- OUTSIDE RECORDS SUMMARY | 2025-08-26 16:16 | XMS_ITS | Clinical Summary ---
Author Organization [facility] (historical information prior to 08/23/2025 only) Address [address] [facility] [place] [address] Care Team Providers Care Telephone Answerer Name Role Phone Unavailable Primary Care Provider [...] Screening 2021 Influenza (Seasonal) 06/20/2025 CoVid-19 Vaccine (2023-2 5 season) 2025 HIB Vaccines Aged Out [...] patient's age to complete this topic Insurance [facility]
== END 2025-08-26 14:16 | disposition home or self-care (01) ==
LOC: HO.HBST 13:17
PROVIDERS: PCP Internal Medicine; Visit Provider Counselor Mental Health
DX: F39 Unspecified mood [affective] disorder (principal); F41.1 Generalized anxiety disorder
CPT/HCPCS: 90837

== ENCOUNTER 2025-09-09 13:29 | Outpatient (AMB) | payer OTHER, SELFPAY ==
--- NOTE | 2025-09-09 13:23 | A.OFFWM_ITS ---
Intake Intake Visit Reasons: VIDEO PO LSG 02/06/22 Allergies cat dander (CAT DANDER) Allergy (Mild, Verified 01/02/25 12:56) EYES- TEAR, ITCHY, face swells dog dander (DOG DANDER) Allergy (Mild, Verified 01/02/25 12:56) EYES- TEAR, ITCHY, hives duloxetine (From CYMBALTA) Adverse Reaction (Intermediate, Verified 01/02/25 12:56) VAGINAL BLEEDING PFSH Medical History Bilateral knee pain Sacroiliac pain Positive DANIELE (antinuclear antibody) Refused influenza vaccine PTSD (post-traumatic stress disorder) Insomnia PONV (postoperative nausea and vomiting) Gastric ulcer Cholelithiasis Sacroiliitis Spondylosis of lumbar region without myelopathy or radiculopathy Scoliosis Goiter Restless leg syndrome ADHD (attention deficit hyperactivity disorder) Anxiety OCD (obsessive compulsive disorder) Hypertension GERD (gastroesophageal reflux disease) Vitamin D deficiency PCOS (polycystic ovarian syndrome) Body mass index [BMI]40.0-44.9, adult Irritable bowel syndrome with diarrhea Environmental and seasonal allergies Breast cancer screening by mammogram Dyslipidemia Gastritis Morbid obesity Hirsutism Telogen effluvium Heartburn Degenerative disc disease, lumbar Fibromyalgia Bipolar disorder Rosacea Acquired hypothyroidism Surgical History S/P laparoscopic sleeve gastrectomy Hx of bariatric surgery Hx of shoulder surgery Hx of cholecystectomy Hx of colonoscopy Miscarriage History of nasal surgery History of rotator cuff surgery Family History Father Diabetes mellitus Mother OCD (obsessive compulsive disorder) EITAN (generalized anxiety disorder) HTN (hypertension) Cancer Cervical cancer Family/Other FH: mental illness Maternal Grandmother EITAN (generalized anxiety disorder) Glaucoma Mental health disorder Maternal Grandfather Alzheimer disease Maternal Aunt Hypothyroidism Mental health disorder Paternal Grandmother Unknown family medical history Paternal Grandfather Unknown family medical history Sister Hypothyroidism Paternal Aunt Substance use disorder Maternal Uncle Substance use disorder Social History Household Members Other:: brother Housing: Apartment Are you a primary hearing healthcare practitioner to a significant other at home: No Do you presently have visiting nurse or other home services: No Alcohol intake: never Patient Tobacco Use Status: Former Tobacco user Tobacco use type: Cigarette Cigarettes Per Day: 20 Years Smoked: 3 e-Cigarette/Vaping Use: Never Used service: No Current occupational status: disabled Cognitive needs: No Hearing needs: No Vision needs: Yes Behavioral Health Assessment Weight Management Therapy Therapy Notes Details Subjective: The patient reports experiencing frequent nightmares and waking multiple times during the night, resulting in morning fatigue and increased irritability. She attributes the worsening of her sleep and mood symptoms to taking only half of her prescribed medication, which previously helped with mood stabilization, sleep, and nightmares. She reduced her dose due to insurance issues and fears running out of medication abruptly, which could lead to withdrawal symptoms. As a result, she is rationing her medication. Objective: The patient attended a telehealth follow-up visit. We processed her current symptoms, sleep disturbances, and the impact on daily functioning. CBT-based interventions were used to develop a coping plan for managing nighttime anxiety and irritability, including relaxation techniques and sleep hygiene strategies. We explored practical solutions for medication access, including reviewing GoodRx for discounts, which the patient found affordable. Psychoeducation was provided regarding the risks of medication withdrawal and the importance of medication adherence for symptom management. Assessment/Response: * Mental status: Alert and oriented, mood is irritable and fatigued, affect congruent, thought process logical and goal-directed, no evidence of psychosis. * Risk reported/identified: No suicidal or homicidal ideation, no self-harm behaviors reported. Assessment & Plan Assessment & Plan (1) Unspecified mood [affective] disorder: Code(s): F39 - Unspecified mood [affective] disorder (2) Generalized anxiety disorder: Code(s): F41.1 - Generalized anxiety disorder Plan Advised the patient to explore [id number] options for her medication and to discuss with her prescriber the possibility of anticipating insurance requirements for prior authorization, to prevent interruptions in medication and avoid withdrawal. Emphasized the importance of taking the full prescribed dose to improve sleep and mood stability. Follow up in 2 weeks. * Next anamaria: 09/23/2025 at 1pm, video Telehealth Telehealth Telehealth Platform: [employer] Location of provider rendering services: other (Home office. [place], [place]) Location of patient: address on file Patient Identification confirmed using: Name, : Yes Telehealth method: video Patient verbally consented to treatment: Yes Patient verbally consented to billing insurance company: Yes Patient informed of any privacy concerns related to visit: Yes Minutes spent on Phone/Video with Pt.: 45 [place] [id number] Tele Psytx 45 mins Patient Type Established Diagnoses Unspecified mood [affective] disorder F39 Generalized anxiety disorder F41.1 Time Spent (min) 45
== END 2025-09-09 14:11 | disposition home or self-care (01) ==
LOC: HO.HBST 13:29
PROVIDERS: PCP Internal Medicine; Visit Provider Counselor Mental Health
DX: F39 Unspecified mood [affective] disorder (principal); F41.1 Generalized anxiety disorder
CPT/HCPCS: 90834

== ENCOUNTER 2025-09-12 11:05 | Outpatient (AMB) | payer OTHER, SELFPAY ==
--- OUTSIDE RECORDS SUMMARY | 2024-05-13 06:20 | XMS_ITS ---
Author Organization [facility] Address [address] [place] [phone] Care Team Providers Care Can Carrier Name Role Phone America HYATT, Elke Primary Care Provider Vishal Salinas Jr REASON FOR VISIT IBS Encounters Encounter Location Date Provider Diagnosis [facility] [address] [place] [phone] 05/13/2024 Vishal Hutchinson Jr Plan Of Treatment No Information Progress Notes * LUCY WALSHDOB:1980 (45 yo F)Acc No.[id number]:05/13/2024 Progress Notes Patient: LUCY MARTINEZ Provider: Amaris Hutchinson MD :1980 A ge:43 Y S ex:Female Date:05/13/2024 Address:[address] [place], [place] [phone] Pcp:Elke Cross MD Subjective: * Chief Complaints: [...] 0 05/13/2024 Generated for Printi ng/Faxing/eTransmitting on: 01:22 PM EDT
--- OUTSIDE RECORDS SUMMARY | 2024-05-29 05:40 | XMS_ITS ---
Author Organization [facility] Network Address [address] [facility] Floor 1 [place] [address] Care Team Providers Care Convention Manager Name Role Phone MANFRED MANRIQUEZ Primary Care Provider GABRIELA Maya [phone] REASON FOR VISIT e/no ref req c0 V, e/no ref req c0 V, e/no ref req c0 V Encounters Encounter Location Date Provider Diagnosis [facility] Network [address] [facility] Floor 1 [place] [address] 05/29/2024 GABRIELA NOLAN Plan Of Treatment Next Appt Details Provider Name:Bartolome Farooq, 03/2025 01:00:00 PM, [address] [facility], Floor 1, [place], [address], Progress Notes * Jaz LYNCH LDOB: 1 (45 yo F)Acc No.[id number]:05/29/2024 Patient: Jaz Espinal Provider: Domingo Nolan MD :1980 A ge:44 Y S ex:Female Date:05/29/2024 Address:[address] [place], [place] [phone] Pcp:MANFRED MANRIQUEZ Subjective: * Chief Complaints: * [...] Electronic signature of GABRIELA NOLAN M.D. on 09/12/2025 at 01:22 PM EDT Sign off status: Pending * Provider: Domingo Nolan MD Date: 0 05/29/2024 Generated for Aravind ventura/Nisha/Devi on: 1 01:22 PM EDT
--- OUTSIDE RECORDS SUMMARY | 2024-05-29 07:00 | XMS_ITS ---
Author Organization [facility] Network Address [address] [facility] Floor 1 [place] [address] Care Team Providers Care Airport Engineer Name Role Phone MANFRED MANRIQUEZ Primary Care Provider Unavail GABRIELA Alvarez Unavailable [phone] REASON FOR VISIT e/no ref req c0 V Encounters Encounter Location Date Provider Diagnosis [facility] Network [address] [facility] Floor 1 [place] [address] 05/29/2024 GABRIELA NOLAN Plan Of Treatment Next Appt Details Provider Name:Bartolome Farooq, 03/2025 01:00:00 PM, [address] [facility], Floor 1, [place], [address], Progress Notes * Jaz LYNCH LDOB: 1 (45 yo F)Acc No.[id number]:05/29/2024 Patient: Jaz Espinal Provider: Domingo Nolan MD :1980 A ge:44 Y S ex:Female Date:05/29/2024 Address:[address] [place], [place] [phone] Pcp:MANFRED MANRIQUEZ Subjective: * Chief Complaints: * e /no ref req c0 V * Electronic signature of GABRIELA NOLAN M.D. on 09/12/2025 at 01:21 PM EDT Sign off status: Pending * Provider: Domingo Nolan MD Date: 0 05/29/2024 Generated for Printi ng/Faxing/eTransmitting on: 1 01:21 PM EDT
--- OUTSIDE RECORDS SUMMARY | 2024-09-12 10:35 | XMS_ITS ---
Author Organization [facility] Address [address] [place] [phone] Care Team Providers Care Bi Technical Lead Name Role Phone America HYATT, Elke Primary Care Provider Vishal Salinas Jr REASON FOR VISIT Patient presents today for IBS Encounters Encounter Location Date Provider Diagnosis [facility] [address] [place] [phone] 09/12/2024 Vishal Hutchinson Jr Plan Of Treatment No Information Progress Notes * LUCY WALSHDOB:1980 (45 yo F)Acc No.[id number]:09/12/2024 Progress Notes Patient: LUCY MARTINEZ Provider: Amaris Hutchinson MD :1980 A ge:44 Y S ex:Female Date:09/12/2024 Address:[address] [place], [place] [phone] Pcp:Elke Cross MD Subjective: * Chief Complaints: [...] MD Date: Generated for Printi ng/Faxing/eTransmitting on: 01:21 PM EDT
--- NOTE | 2025-09-12 11:02 | MHC.OFFVISWM ---
VS Expanded 09/12/25 11:03 Height 5 ft 3 in Weight 171 lb 8 oz BMI 30.4 Intake Visit Reasons: TV PO LSG 02/06/22 Allergies cat dander (CAT DANDER) Allergy (Mild, Verified 01/02/25 12:56) EYES- TEAR, ITCHY, face swells dog dander (DOG DANDER) Allergy (Mild, Verified 01/02/25 12:56) EYES- TEAR, ITCHY, hives duloxetine (From CYMBALTA) Adverse Reaction (Intermediate, Verified 01/02/25 12:56) VAGINAL BLEEDING Medication List - Last Reconciled 09/12/25 by TYRONE Breaux acetaminophen ER (Tylenol 8 Hour) 650 mg PO Q12H albuterol sulfate 90 mcg/actuation (Ventolin HFA) 1 - 2 puffs inhalation Q4H PRN alclometasone 0.05% appl topical BID PRN back brace As directed benzoyl peroxide 10% topical calcium carbonate-vitamin D3 250 mg-3.125 mcg (125 unit) 1 tab PO BID cariprazine (Vraylar) 3 mg PO DAILY cetirizine 10 mg PO DAILY PRN clonazepam mg PO ONCE PRN Daily-Asim (with folic acid) 400 mcg (multivitamin with folic acid) 1 tab PO DAILY NS dextroamphetamine-amphetamine 25 mg ER (Adderall XR) 50 mg PO ONCE diclofenac sodium 1% topical fluticasone propionate 50 mcg/actuation 2 sprays intranasal DAILY ivermectin 1% (Soolantra) 1 appl topical DAILY levothyroxine 50 mcg PO DAILY 30 days metformin 500 mg PO BID 30 days pregabalin 25 mg PO BID semaglutide (Ozempic) 1 mg subcut QWEEK sennosides (senna) 17.2 mg (2 x 8.6 mg) PO BEDTIME 90 days spironolactone 50 mg PO DAILY walker (Ultra-Light Rollator misc) As directed, with seat HPI Comments Details: 45-year-old female returns to the office today in follow-up. She is approximately 3 year 5 month status post sleeve gastrectomy performed on 02/06/2022. She had been followed by our registered dietitian, Jazmín in the past. Weight today is 171.8 lb with a BMI of 31.5. Taking mvi and brenda + D She notes she is now taking half scoop instead of 1 scoop of powder in the shakes. She notes some snacking at night but trying to be more mindful and avoid this, so doing better. Preop weight (02/11/2022) 205# weight at 3 MO 176# weight at 6 MO PO 173 weight weight (12/09/22) 188# Goal 160 pounds On Ozempic- 1mg wakes at 10 am meal plan: 10 am 2 eggs w vegetables, 1/4 c fresh berries, 4 oz coffee w tsp 11/21 and 11/21 12-2pm Orgain shake, 1/2 scoop in 8 oz 1 % milk 4-6 pm another shake, 1/2 scoop in 8 oz 1 % milk 630 pm 7 forks of protein and 7 forks of vegetables Drinking: when asked takes MVI, but not every day Exercise plan: stationary bike 5 x per week, 300 calories [employer] amanda, yoga she reports she is unable to exercise every day as directed at last visit, but I'm doing my best Have you been diagnosed with reflux (GERD)? Score 0-5: 0=no symptoms, 1=noticeable but not bothersome (slight or occasional), 2=noticeable, bothersome but not daily, 3=bothersome and daily, 4=affects daily activities, 5=incapacitating, unable to do daily activities How bad is the heartburn: 0 Heartburn when lying down: 0 Heartburn when standing up: 0 Heartburn after meals: 0 Does heartburn change your diet: 0 Does heartburn wake you up from sleep: 0 Do you have difficulty swallowin Do you have pain with swallowin If you take medication for reflux, does this affect your daily life: 0 Total score: 0 PFSH Medical History Bilateral knee pain Sacroiliac pain Positive DANIELE (antinuclear antibody) Refused influenza vaccine PTSD (post-traumatic stress disorder) Insomnia PONV (postoperative nausea and vomiting) Gastric ulcer Cholelithiasis Sacroiliitis Spondylosis of lumbar region without myelopathy or radiculopathy Scoliosis Goiter Restless leg syndrome ADHD (attention deficit hyperactivity disorder) Anxiety OCD (obsessive compulsive disorder) Hypertension GERD (gastroesophageal reflux disease) Vitamin D deficiency PCOS (polycystic ovarian syndrome) Body mass index [BMI]40.0-44.9, adult Irritable bowel syndrome with diarrhea Environmental and seasonal allergies Breast cancer screening by mammogram Dyslipidemia Gastritis Morbid obesity Hirsutism Telogen effluvium Heartburn Degenerative disc disease, lumbar Fibromyalgia Bipolar disorder Rosacea Acquired hypothyroidism Surgical History S/P laparoscopic sleeve gastrectomy Hx of bariatric surgery Hx of shoulder surgery Hx of cholecystectomy Hx of colonoscopy Miscarriage History of nasal surgery History of rotator cuff surgery Family History Father Diabetes mellitus Mother OCD (obsessive compulsive disorder) EITAN (generalized anxiety disorder) HTN (hypertension) Cancer Cervical cancer Family/Other FH: mental illness Maternal Grandmother EITAN (generalized anxiety disorder) Glaucoma Mental health disorder Maternal Grandfather Alzheimer disease Maternal Aunt Hypothyroidism Mental health disorder Paternal Grandmother Unknown family medical history Paternal Grandfather Unknown family medical history Sister Hypothyroidism Paternal Aunt Substance use disorder Maternal Uncle Substance use disorder Social History Household Members Other:: brother Housing: Apartment Are you a primary healthcare project manager to a significant other at home: No Do you presently have visiting nurse or other home services: No Alcohol intake: never Patient Tobacco Use Status: Former Tobacco user Tobacco use type: Cigarette Cigarettes Per Day: 20 Years Smoked: 3 e-Cigarette/Vaping Use: Never Used service: No Current occupational status: disabled Cognitive needs: No Hearing needs: No Vision needs: Yes Telehealth Telehealth Telehealth Platform: Telephone Location of provider rendering services: practice address Location of patient: address on file Patient Identification confirmed using: Name, : Yes Telehealth method: voice only Patient verbally consented to treatment: Yes Patient verbally consented to billing insurance company: Yes Patient informed of any privacy concerns related to visit: Yes Minutes spent on Phone/Video with Pt.: 16 Assessment & Plan Assessment & Plan (1) S/P laparoscopic sleeve gastrectomy: Code(s): Z98.84 - Bariatric surgery status Category: Surgical (2) Obesity: Code(s): E66.9 - Obesity, unspecified Category: Medical Qualifiers: Obesity type: due to excess calories Obesity classification: adult class 2 (BMI 35 - 39.9) Serious obesity comorbidity presence: without serious comorbidity Body mass index: BMI 38.0-38.9 Qualified Code(s): E66.09 - Other obesity due to excess calories; Z68.38 - Body mass index [BMI] 38.0-38.9, adult Plan Pt to continue current meal plan. She is working on better nighttime snacking habits. She notes occasional dizziness with standing and we discussed that this may be related to low fluid intake. She will forward me lab work she had done recently, notes slightly high vitamin A level. RTC 4 months. I encouraged pt to text me between visits with any questions or concerns. Medications: Changed From Ozempic (semaglutide) for 4 weeks 0.5 mg (0.736 mL) subcut QWEEK 30 days 3 mL 2RF NS E66.9 - Obesity, unspecified To semaglutide (Ozempic) for 4 weeks 1 mg subcut QWEEK E66.9 - Obesity, unspecified
[2025-09-12 11:03] VITALS: BMI 30.4
--- OUTSIDE RECORDS SUMMARY | 2025-09-12 13:21 | XMS_ITS | Clinical Summary ---
Author Organization [facility] (historical information prior to 08/23/2025 only) Address [address] [place] [address] Care Team Providers Care Crm System Administrator Name Role Phone Unavailable Primary Care Provider [...] patient's age to complete this topic [facility]
--- OUTSIDE RECORDS SUMMARY | 2025-09-12 13:21 | XMS_ITS | Patient Health Record ---
Author Organization [facility] Address [address] [place] [address] Care Team Providers Care Profile Trimmer Name Role Phone [place] HYATT, Elke Primary Care Provider Vishal Salinas Jr [phone] Allergies Allergen (clinical drug ingredient) Drug/Non Drug [...] Problem Status W/U Status Risk Notes Problem Dysphagia (73205754) Dysphagia (R13.10) Active confirmed Problem Abnormal upper gastrointestinal barium series (R93.3) Active confirmed Encounters Encounter Location Date Provider Diagnosis [facility] [address] [place] [address] 09/12/2024 Vishal Hutchinson Jr Plan Of Treatment Future Test Test Name Order Date UPPER GI ENDOSCOPY 02/22/2017 Insurance Providers Payer Name Payer Address Payer Phone Subscriber Number Group Number Insured Name Patient Relationship to Insured Coverage Start Date Coverage End Date [facility] [address] [address] [place], [place] [id number] [phone] [id number] LUCY WALSH Self - patient is the insured MEDICAID OF [facility] [address] [place] [address] [id number] LUCY WALSH Self - patient is the insured Medical (General) History Medical History History ICD Code hypothyroidism attention deficit disorder bipolar disorder PTSD vitamin D deficiency carpal tunnel syndrome menorrhagia
--- OUTSIDE RECORDS SUMMARY | 2025-09-12 13:22 | XMS_ITS | Clinical Summary ---
Author Organization [facility] Address [address] [place] [address] Care Team Providers Care Asp Net Software Developer Name Role Phone Namrata Dixon MD Primary Care Provider [phone] Source Comments PLEASE NOTE, if this patient [...] FOR FLARES. DECREASE SYMPTOMS IMPROVE 4 Active acetaminophen (TYLENOL 8 HOUR) 650 mg [...] needed for allergies. 90 Tablet 5 Active fluticasone (FLONASE) 50 mcg/actuation nasal spray Place 1 [place] in both nostrils once daily. 16 g 1 5 Active pregabalin (LYRICA) 25 mg capsule Take 1 Capsule by mouth 2 (two) times daily. Max Daily Amount: 50 mg 60 Capsule 5 Active pregabalin (LYRICA) 25 mg capsule Take 1 Capsule by mouth 2 (two) times daily. Max Daily Amount: 50 mg 60 Capsule 5 025 Discontin ued(Reord er (E-Cancel Not [...] pain clinic and Rheum here in the [facility]. Referrals placed. Obesity without serious comorbidity 03/25/2025 Assessment & Plan (08/20/2025 12:24 PM EDT): Current BMI 31. Patient is currently following with weight clinic and doing great on Ozempic 0.5mg weekly. Plan at last visit was to increase to 1mg weekly. She underwent bariatric surgery several years ago outside of [place], and continues on a multivitamin and Ca/Vit D supplement. Brings in documentation from clinic in [facility] from prior to starting Ozempic and weight at that time was 215 lbs, BMI 38 - so she has lost significant weight and is doing very well and hoping to continue on medication. Weight clinic is working on PA, she'll let us know if she needs anything further from us. Outside records scanned in. Assessment & Plan (03/25/2025 2:21 PM EDT): Current BMI 32. Patient hoping to reestablish with a weight clinic here in the [place] area. She underwent bariatric surgery several years ago outside of [place], and continues on a multivitamin and Ca/Vit [...] and a pain clinic here in the [facility]. Referrals placed. Sacroiliac joint dysfunction 03/25/2025 Assessment & Plan (03/25/2025 2:21 PM EDT): Patient had tremendous benefit working with her prior pain clinic which was providing cortisone injections. She is hoping to newly establish with a pain clinic here in the [facility] where she can continue these treatments. Reviewed the importance of getting outside records and CD with any prior imaging in preparation for new appointments. PCOS (polycystic ovarian syndrome) 03/25/2025 Assessment & Plan (03/25/2025 2:21 PM EDT): Patient reports a history of PCOS for which she is on Metformin 500mg BID. Continues to have very irregular periods. Was previously following with OBGYN in [place], all paps have been reportedly normal with [...] Encounters Date Type Department Care Team Description 08/20/2025 11:55 AM EDT Office Visit [facility] [address] [place] [address] Namrata Dixon MD 08/20/2025 Travel from Last 3 Months Family History [...] Tobacco: Former Cigarettes 0.5 2 Q uit: 2005 Smokeless Tobacco: Never Tobacco Cessation:Counseling Given: Not [...] Sign Reading Time Taken Comments Blood Pressure 107/74 08/20/2025 10:53 AM EDT Pulse 79 08/20/2025 10:53 AM EDT Temperature 36.6 C (97.8 F) 08/20/2025 10:53 AM EDT Respiratory Rate - - Oxygen Saturation 97% 08/20/2025 10:53 AM EDT Inhaled Oxygen Concentration - - Weight 80.5 kg (177 lb 6.4 oz) 08/20/2025 10:53 AM EDT Height 160 cm (5' 2.99 ) 08/20/2025 10:53 AM EDT Body Mass Index 31.43 08/20/2025 10:53 AM EDT Plan of Treatment Upcoming Encounters Date Type Department Care Team (Late st Contact Info) Description 11/26/2025 11:05 AM EST Office Visit [facility] Medicine [address] [place] [address] Namrata Dixon MD [address] [place] [address] Health Maintenance Due Date Last Done Comments Anxiety Screening 1981 Diabetes Screening 1981 HPV Screening (self-collect) 1981 HPV Screening 1981 Hepatitis C Screening 1981 Lipid Screening 1981 TSH Monitoring 1981 HIV Screening 1996 Imm-DTaP/Tdap/Td (1 - Tdap) 2000 Imm-Hepatitis B (1 of 3 - 19 + 3-dose series) 2000 Imm-HPV (1 - 3-dose SCDM series) 2008 Breast Cancer Screening (Mammogram) 2021 Alcohol and Drug Screen 11/20/2024 [id number] ( season) 2025 Imm-Influenza (#1) 2025 Cervical Cancer Screening 11/15/2025 Pap + HPV 11/15/2025 Depression Monitoring 11/20/2025 08/20/2025 , 08/17/2025, 03/20/2025 Relationship Safety Screening/Counseling 03/20/2026 03/20/2025 Tobacco Screening 03/20/2026 03/20/2025 Hypertension Screening (#1) 08/20/2026 Pap Smear 11/15/2027 11/15/2024 Cervical Ablation/Cold-Knife Conization Discontinued Cervical Cryotherapy Discontinued Colposcopy Discontinued Excision/Leep Discontinued HPV Genotyping Discontinued Vaginal Pap Discontinued Vulvoscopy Discontinued Procedures Procedure Name Priority Date/Time Associated Diagnosis Comments REFERRAL SCANNED DOCUMENT 08/29/2025 3:00 AM EDT OTHER ORDERS SCANNED DOCUMENT 08/21/2025 3:00 AM EDT OTHER ORDERS SCANNED DOCUMENT 08/13/2025 3:00 AM EDT PAP SMEAR Routine 11/15/2024 12:00 AM EST from Last 3 Months or Most Recently Relevant to Health Maintenance Results * REFERRAL SCANNED DOCUMENT (08/29/2025 3:00 AM EDT) 08/29/2025 3:00 AM EDT us Namrata Dixon MD SCAN REFERRAL Final Resul t * OTHER ORDERS SCANNED DOCUMENT (08/21/2025 3:00 AM EDT) Only the most recent of2 resultswithin the time period is included. 08/21/2025 3:00 AM EDT us Namrata Dixon MD SCAN OTHER ORDERS Final Res ult * PAP SMEAR (11/15/2024 12:00 AM EST) Swab us Provider [facility] AMB ULATORY Final Result from Last 3 Months or Most Recently Relevant to Health Maintenance Insurance [facility] Member Subscriber Plan / Payer (Ef fective 2024-Present) Name:Jaz Lynch Relation to Subscriber:Self Name:Jaz Lynch Payer ID:[id number] Group ID:Not on file Type:Medicaid Address: [facility] [address] [place] [address] Care Teams Asp Net Software Developer Relationship Specialty Start Date End Date Namrata Dixon MD [address] [place] [phone] PCP - General Internal Medicine 03/20/25
--- OUTSIDE RECORDS SUMMARY | 2025-09-12 13:22 | XMS_ITS | Encounter Summary ---
Author Organization [facility] Address [address] [facility] [address] [place] [address] Care Team Providers Care Payroll Benefits Clerk Name Role Phone Namrata Dixon MD Primary Care Provider [phone] Encounter Details Date Type Department Care Team (Late st Contact Info) Description 09/02/2025 Results Follow-Up [facility] [address] [address] Kati Murphy NP [address] [place] [address] Social History Tobacco Use Types Packs/Day Years [...] Description 10/02/2025 11:00 AM EST Office Visit [facility] [address] [place] [phone] Jeni Pearce MD [address] [facility] [address] [place] [address] 10/09/2025 8:15 AM EST Telemedicine [facility] [address] [address] Margie Garcia, FRAUD ANALYST [address] [facility] [address] [facility] [place] [address] 11/24/2025 1:15 PM EST Office Visit [facility] [address] [place] [address] Yarelis Hassan MD [address] [place] [address] 12/04/2025 11:00 AM EST Telemedicine [facility] [address] [address] Kati Murphy, BRANDON [address] [facility] [address]remias. [place] [id number] 12/04/2025 3:00 PM EST Telemedicine [facility] [address] [place] [address] [facility] [address] [facility] [place] [address] 02/11/2026 11:30 AM EDT Office Visit [facility] [address] [place] [address] Kati Murphy NP [address] [facility] [place]ias. [place] [id number] 04/02/2026 11:00 AM EDT Office Visit [facility] [address] [facility] [address]rd [place] [address] Jasper Nava MD [address] [facility] [address] [place] [address] documented as of this encounter Visit Diagnoses Not on filedocumented in this encounter Care Teams Payroll Benefits Clerk Relationship Specialty Start Date End Date Namrata Dixon MD [address] [place] [id number] PCP - General Rn Telephone Triage 03/24/25 documented as of this encounter
--- OUTSIDE RECORDS SUMMARY | 2025-09-12 13:22 | XMS_ITS | Clinical Summary ---
Author Organization [facility] Address [address] [facility] [address] [place] [address] Care Team Providers Care Debarker Operator Name Role Phone Namrata Dixon MD Primary Care Provider [phone] Allergies Active Allergy Reactions Criticality Noted Date Comments Duloxetine 04/02/2025 Medications cetirizine (ZyrTEC) 10 mg tablet Take 10 mg by mouth once daily. 0 Active metFORMIN (Glucophage) 500 mg tablet Take 500 mg by mouth. 5 Active levothyroxine (Synthroid, Levoxyl) 50 mcg tablet Take 50 mcg by mouth in the morning. 5 Active fluticasone (Flonase) 50 mcg/actuation nasal spray Administer 2 sprays into each nostril twice daily. 0 Active pregabalin (Lyrica) 25 mg capsule Take 25 mg by mouth twice daily. Active amphetamine-dext roamphetamine XR (Adderall XR) 25 mg 24 hr [...] DAY AFTER BENZOYL PEROXIDE CLEANSER 5 Active spironolactone (Aldactone) 100 mg tablet Take 100 mg by mouth once daily. Active albuterol 90 mcg/actuation inhaler Inhale 2 puffs every 6 (six) hours if needed for wheezing. Active ivermectin 1 % creamIndications :Rosacea Apply topically once to twice daily to affected areas 60 g 11 Active sulfacetamide sodium-sulfur 10-1 % cleanserIndicati ons:Rosacea Use to wash affected areas once to twice daily. 170.1 g 11 Active ketoconazole (NIZOral) 2 % shampooIndicatio ns:Seborrheic dermatitis Use to wash scalp daily as needed. May leave in for 3-5 minutes before rinsing out. 120 mL 11 Active Vraylar 1.5 mg capsule Take 1.5 mg by mouth once daily. Active semaglutide (Ozempic) 1 mg/dose (4 mg/3 mL) pen-injectorIndi cations:Bariatri c surgery status,Class 3 severe obesity with serious comorbidity and body mass index (BMI) of 40.0 to 44.9 in adult, unspecified obesity type,BMI 31.0-31.9,adult Inject 1 mg under the skin 1 (one) time per week. 3 mL 3 5 08/13/20 26 Active Active Problems Problem Noted Date Diagnosed Date Bariatric surgery status 08/13/2025 Class 3 severe obesity with serious comorbidity and body mass index (BMI) of 40.0 to 44.9 in adult 08/13/2025 BMI 31.0-31.9,adult 08/13/2025 PCOS (polycystic ovarian syndrome) 08/13/2025 Hypertension 08/13/2025 Hyperlipidemia 08/13/2025 Osteoarthritis 08/13/2025 Fibromyalgia 04/02/2025 Encounters Date Type Department Care Team Description 09/02/2025 Results Follow-Up [facility] [address] [facility] [address] [place] [address] Kati Murphy NP 08/27/2025 Orders Only [facility] [address] [place] [address] Kati Murphy NP 08/18/2025 Telephone [facility] [address] [facility] [address] [place] [address] Kati Murphy NP PA for Ozempic 1mg 08/13/2025 11:30 AM EDT Office Visit [facility] [address] [place] [address] Kati Murphy NP Class 3 severe obesity [...] Travel 08/05/2025 1:00 PM EDT Clinical Support [facility] [address] [place] [address] Margie Garcia LICSW 08/05/2025 Travel 06/19/2025 1:30 PM EDT Telemedicine [facility] [address] [place] [address] Dale Alvarez MD Sacroiliac joint pain (Primary Dx) 06/12/2025 Telephone [facility] [address] [place] [address] Destiney Ventura RN Pre Visit Intake from Last 3 Months Family History Medical [...] Description 10/02/2025 11:00 AM EST Office Visit [facility] D[facility]at[facility] [address] [place] [address] Jeni Pearce MD [address] [facility] [address] [place] [address] 10/09/2025 8:15 AM EST Telemedicine [facility] [address] [place] [address] Margie Garcia LICSW 91 [facility] [address] [facility] Weight [place] [address] 11/24/2025 1:15 PM EST Office Visit [facility] [address] [place] [address] Yarelis Hassan MD [address] [place] [address] 12/04/2025 11:00 AM EST Telemedicine [facility] [address] [address] Kati Murphy, BRANDON [address] [facility] [place]. [place] [address] 12/04/2025 3:00 PM EST Telemedicine [facility] [address] [facility] [address] [place] [address] 91 [facility] [address] [facility] [place] [address] 02/11/2026 11:30 AM EDT Office Visit [facility] [address] [facility] [address] [place] [address] Kati Murphy, BRANDON [address] [facility] [place]. [place] [address] 04/02/2026 11:00 AM EDT Office Visit [facility] Rheumatology [address] [facility] [address] 3rd [place] [address] Jasper Nava MD 800 [facility] [address] [place] [address] Health Maintenance Due Date Last Done Comments HIV Screening 1981 Lipid Panel 1981 MMR Vaccines (1 of 1 - Stand beatriz series) 1982 Varicella Vaccines (1 of 2 - 13+ 2-dose series) 1994 Hepatitis C Screening 1999 DTaP/Tdap/Td Vaccines (1 - Tdap) 2000 Hepatitis B Vaccines (1 of 3 - 19+ 3-dose series) 2000 Pap Smear 2002 HPV Vaccines (1 - 3-dose SCD M series) 2008 Cervical Cancer Screening 2011 HPV/Cotest 2011 Mammogram 2021 Depression Screening 11/20/2024 COVID-19 Vaccine (1 - 2024-2 6 season) 2025 Influenza Vaccine (#1) 2025 Diabetes Screening 08/27/2026 08/27/2025 HIB Vaccines Aged Out No longer eligi [...] to 49 Years) Aged Out No longer eligi ble based on patient's age to complete this topic Rotavirus Vaccines Aged Out No longer eligible based on patient's age to complete this topic Procedures Procedure Name Priority Date/Time Associated Diagnosis Comments PTH, INTACT Routine 08/27/2025 7:37 AM EDT ZINC Routine 08/27/2025 7:37 AM EDT COPPER Routine 08/27/2025 7:37 AM EDT VITAMIN B12 Routine 08/27/2025 7:37 AM EDT CHOLESTEROL, TOTAL Routine 08/27/2025 7: 37 AM EDT ALKALINE PHOSPHATASE Routine 08/27/2025 7:37 AM EDT ALBUMIN Routine 08/27/2025 7:37 AM EDT CALCIUM, TOTAL Routine 08/27/2025 7:37 AM EDT TSH WITH REFLEX Routine 08/27/2025 7:37 AM EDT VITAMIN B1 (THIAMINE),WHOLE BLOOD Routine 08/27/2025 7:37 AM EDT VITAMIN D 25 HYDROXY Routine 08/27/2025 7:37 AM EDT VITAMIN A Routine 08/27/2025 7:37 AM EDT FOLATE Routine 08/27/2025 7:37 AM EDT HEMOGLOBIN A1C Routine 08/27/2025 7:37 AM EDT CBC Routine 08/27/2025 7:37 AM EDT IRON, FERRITIN, TIBC Routine 08/27/2025 7:37 AM EDT from Last 3 Months Results * TSH with reflex (08/27/2025 7:37 AM EDT) TSH 1.660 0.450 - 4.500 uIU/mL [facility] 1 Comment: No apparent thyroid disorder. Additional testing not indicated. In rare instances, Secondary Hypothyroidism as well as Subclinical Hypothyroidism have been reported in some patients with normal TSH values. 08/27/2025 7:37 AM EDT 08/27/2025 Narrative [facility] - 08/28/2025 12:05 AM EDT Performed at: 01 - [facility] [id number] Physician Vice President: Deirdre Owens MD, Phone: [phone] Kati Murphy NP LAB BLOOD ORDERABLES Final Result Performing Organization Address City/State/[facility] Co de Phone Number [facility] [address] [place] [address], [facility] 1 * Iron, Ferritin, TIBC (08/27/2025 7:37 AM EDT) Iron Bind.Cap.(TIBC) 339 250 - 450 ug/dL [facility] 1 UIBC 233 131 - 425 ug/dL [facility] 1 Iron 106 27 - 159 ug/dL [facility] 1 Iron Saturation 31 15 - 55 % [facility] 1 Ferritin 90 15 - 150 ng/mL [facility] 1 08/27/2025 7:37 AM EDT 08/27/2025 Narrative [facility] - 08/28/2025 3:45 AM EDT Performed at: - [facility] [id number] Physician Vice President: Deirdre Owens MD, Phone: [phone] Kati Murphy NP LAB BLOOD ORDERABLES Final Result Performing Organization Address [facility] Phone Number [facility] [address] [place] [address], [facility] 1 * Copper (08/27/2025 7:37 AM EDT) Copper Lvl 110 80 - 158 ug/dL [facility] 1 Comment:Detection Limit = 5 08/27/2025 7:37 AM EDT 08/27/2025 Narrative [facility] - 08/30/2025 9:15 PM EDT Test(s) [id number]-[id number], Serum or Plasma was developed and its performance characteristics determined by [facility]. It has not been cleared or approved by the Food and Drug Administration. Performed at: [address] [id number] Physician Vice President: Lisbet Skinner MD, Phone: [phone] Kati Murphy NP LAB BLOOD ORDERABLES Final Result Performing Organization Address [facility] de Phone Number [facility] [address] [place] [address], [facility] 1 * Zinc (08/27/2025 7:37 AM EDT) Zinc Lvl 99 44 - 115 ug/dL [facility] 1 Comment:Detection Limit = 5 08/27/2025 7:37 AM EDT 08/27/2025 Narrative [facility] - 08/30/2025 9:15 PM EDT Test(s) [id number]-Uukn, Plasma or Serum was developed and its performance characteristics determined by [facility]. It has not been cleared or approved by the Food and Drug Administration. Performed at: [facility] [id number] Physician Vice President: Lisbet Skinner MD, Phone: [phone] Kati Murphy NP LAB BLOOD ORDERABLES Final Result Performing Organization Address [facility] Co de Phone Number [facility] [address] [place] [address], [facility] 1 * (ABNORMAL) Vitamin A (08/27/2025 7:37 AM EDT) Vitamin A Lvl 74.7(H) 20.1 - 62.0 ug/dL [facility] 1 Comment: Reference intervals for vitamin [facility]. Individuals with vitamin A less than 20 ug/dL are considered vitamin A deficient and those with serum concentrations less than 10 ug/dL are considered severely deficient. This test was developed and its performance characteristics determined by [facility]. It has not been cleared or approved by the Food and Drug Administration. 08/27/2025 7:37 AM EDT 08/27/2025 Narrative [facility] - 09/01/2025 9:45 AM EDT Performed at: [address] [place] [id number] Physician Vice President: Lisbet Skinner MD, Phone: [phone] Kati Murphy NP LAB BLOOD ORDERABLES Final Result Performing Organization Address [facility] Phone Number [facility] [address] [place] [address], [facility] 1 * Vit D 25 hydroxy (08/27/2025 7:37 AM EDT) Vitamin D, 25-Hydroxy 40.4 30.0 - 100.0 ng/mL [facility] 1 Comment: Vitamin D deficiency has been defined by the [place] and an Endocrine Society practice guideline as a level of serum 25-OH vitamin D less than 20 ng/mL (1,2). The Endocrine Society went on to further define vitamin D insufficiency as a level between 21 and 29 ng/mL (2). 1. IOM ([place]). 2010. Dietary reference intakes for calcium and D. [place]: The National Academies Press. 2. Jacob MF, Mike MATHUR, Varsha ABURTO, et al. Evaluation, treatment, and prevention of vitamin D deficiency: an Endocrine Society clinical practice guideline. JCEM. 2010; 96(5):2441-30. 08/27/2025 7:37 AM EDT 08/27/2025 Narrative [facility] - 08/28/2025 1:15 AM EDT Performed at: 01 - [facility] [address] [id number] Physician Vice President: Deirdre Owens MD, Phone: [phone] Kati Murphy NP LAB BLOOD ORDERABLES Final Result Performing Organization Address [facility]/ZIP Co de Phone Number [facility] [address] [place] [address], [facility] 1 * CBC (08/27/2025 7:37 AM EDT) [facility] WBC 8.5 3.4 - 10.8 x10E3/uL [facility] 1 RBC 4.52 3.77 - 5.28 x10E6/uL [facility] 1 Hgb 14.1 11.1 - 15.9 g/dL [facility] 1 Hct 42.8 34.0 - 46.6 % [facility] 1 MCV 95 79 - 97 fL [facility] 1 MCH 31.2 26.6 - 33.0 pg [facility] 1 MCHC 32.9 31.5 - 35.7 g/dL [facility] 1 RDW 11.7 11.7 - 15.4 % [facility] 1 Platelets 337 150 - 450 x10E3/uL [facility] 1 08/27/2025 7:37 AM EDT 08/27/2025 Narrative [facility] - 08/27/2025 10:15 PM EDT Performed at: - [facility] [address] [id number] Physician Vice President: Deirdre Owens MD, Phone: [phone] Kati Murphy NP LAB BLOOD ORDERABLES Final Result Performing Organization Address City/[facility]/ZIP Co de Phone Number [facility] [address] [place] [address], [facility] 1 * Vitamin B1 (Thiamine), Whole Blood (08/27/2025 7:37 AM EDT) Vitamin B1 Whl Bld 133.5 66.5 - 200.0 nmol/L [facility] 1 08/27/2025 7:37 AM EDT 08/27/2025 Narrative [facility] - 08/30/2025 9:15 AM EDT Test(s) [id number]-[id number]. B1, Whole Blood was developed and its performance characteristics determined by [facility]. It has not been cleared or approved by the Food and Drug Administration. Performed at: - [address] [id number] Physician Vice President: Lisbet Skinner MD, Phone: [phone] Kati Murphy NP LAB BLOOD ORDERABLES Final Result Performing Organization Address [facility]/ZIP Co de Phone Number [facility] [address] [place] [address], [facility] 1 * Alkaline phosphatase (08/27/2025 7:37 AM EDT) Alk Phosphatase 73 41 - 116 IU/L [facility] 1 08/27/2025 7:37 AM EDT 08/27/2025 Narrative [facility] - 08/27/2025 11:15 PM EDT Performed at: - [facility] [id number] Physician Vice President: Deirdre Owens MD, Phone: [phone] Kati Murphy NP LAB BLOOD ORDERABLES Final Result Performing Organization Address City/[facility]/ZIP Co de Phone Number [facility] [address] [place] [address], [facility] 1 * PTH, intact (08/27/2025 7:37 AM EDT) PTH, Intact 22 15 - 65 pg/mL [facility] 1 08/27/2025 7:37 AM EDT 08/27/2025 Narrative [facility] - 08/28/2025 4:15 AM EDT Performed at: [address] [place] [id number] Physician Vice President: Deirdre Owens MD, Phone: [phone] Kati Murphy NP LAB BLOOD ORDERABLES Final Result Performing Organization Address [facility] Phone Number [facility] [address] [place] [address], [facility] 1 * Hemoglobin A1c (08/27/2025 7:37 AM EDT) HgbA1C 5.2 4.8 - 5.6 % [facility] 1 Comment: Prediabetes: 5.7 - 6.4 Diabetes: >6.4 Glycemic control for adults with diabetes: <7.0 08/27/2025 7:37 AM EDT 08/27/2025 Narrative [facility] - 08/28/2025 12:05 AM EDT Performed at: [address] [place] [id number] Physician Vice President: Deirdre Owens MD, Phone: [phone] Kati Murphy NP LAB BLOOD ORDERABLES Final Result Performing Organization Address [facility] Phone Number [facility] [address] [facility] 1 * Folate (08/27/2025 7:37 AM EDT) Folate 17.1 >3.0 ng/mL [facility] 1 Comment: A serum folate concentration of less than 3.1 ng/mL is considered to represent clinical deficiency. 08/27/2025 7:37 AM EDT 08/27/2025 Narrative [facility] - 08/28/2025 7:45 AM EDT Performed at: [address] [place] [id number] Physician Vice President: Deirdre Owens MD, Phone: [phone] Kati Murphy NP LAB BLOOD ORDERABLES Final Result [facility] [address] [place] [address], [facility] 1 * Vitamin B12 (08/27/2025 7:37 AM EDT) Vitamin B12 600 232 - 1,245 pg/mL [facility] 1 08/27/2025 7:37 AM EDT 08/27/2025 Narrative [facility] - 08/28/2025 5:45 AM EDT Performed at: [address] [place] [id number] Physician Vice President: Deirdre Owens MD, Phone: [phone] Kati Murphy NP LAB BLOOD ORDERABLES Final Result Performing Organization Address [facility] Co de Phone Number [facility] [address] [place] [address], [facility] 1 * (ABNORMAL) Cholesterol, total (08/27/2025 7:37 AM EDT) Cholesterol 241(H) 100 - 199 mg/dL [facility] 1 08/27/2025 7:37 AM EDT 08/27/2025 Narrative [facility] - 08/27/2025 11:15 PM EDT Performed at: [address] [place] [id number] Physician Vice President: Deirdre Owens MD, Phone: [phone] Kati Murphy NP LAB BLOOD ORDERABLES Final Result Performing Organization Address City/[facility]/ZIP Co de Phone Number [facility] [address] [place] [address], [facility] 1 * Calcium, total (08/27/2025 7:37 AM EDT) Calcium 9.9 8.7 - 10.2 mg/dL [facility] 1 08/27/2025 7:37 AM EDT 08/27/2025 Narrative [facility] - 08/27/2025 11:15 PM EDT Performed at: [address] [place] [address] [id number] Physician Vice President: Deirdre Owens MD, Phone: [phone] Kati Murphy HORSE GROOMER LAB BLOOD ORDERABLES Final Result Performing Organization Address [facility] Co de Phone Number [facility] [address] [place] [address], [place] [facility] 1 * Albumin (08/27/2025 7:37 AM EDT) [facility] Albumin 4.6 3.9 - 4.9 g/dL [facility] 1 08/27/2025 7:37 AM EDT 08/27/2025 Narrative [facility] - 08/27/2025 11:15 PM EDT Performed at: - [facility] [address] [id number] Physician Vice President: Deirdre Owens MD, Phone: [phone] Kati Murphy NP LAB BLOOD ORDERABLES Final Result Performing Organization Address [facility] Co de Phone Number [facility] [address] [place] [address], [facility] 1 from Last 3 Months Insurance [facility] Care Teams Debarker Operator Relationship Specialty Start Date End Date Namrata Dixon MD [address] [place] [id number] PCP - General Steam And Power Superintendent 03/24/25
--- OUTSIDE RECORDS SUMMARY | 2025-09-12 13:22 | XMS_ITS | Clinical Summary ---
Author Organization [facility] Address [address] [place] [address] Phone Care Team Providers Care Bicycle Service Technician Name Role Phone Elke Cross MD [...] 2000 Cervical Cancer Screening 2002 Colposcopy 2002 LEEP 2002 PAP SMEAR 2002 Pap + HPV 2002 HPV VACCINES (1 - 3-dose SCD M series) 2008 MAMMOGRAM 2021 COVID-19 Vaccine (2024-2 6 season) 2025 INFLUENZA VACCINE (#1) 2025 Zoster [...] age to complete this topic Care Teams Bicycle Service Technician Relationship Specialty Start Date End Date Elke Cross MD [facility] [address] PCP - Insurance 02/06/25
--- OUTSIDE RECORDS SUMMARY | 2025-09-12 13:22 | XMS_ITS | Patient Health Record ---
Author Organization [facility] Address [address] [facility] Floor [address] [place] [address] Care Team Providers Care Transmission And Protection Engineer Name Role Phone MANFRED MANRIQUEZ Primary Care Provider Unavail able GABRIELA NOLAN Unavailable [phone] Bartolome Farooq Unavailable [phone] Allergies Allergen (clinical drug ingredient) Drug/Non Drug [...] W/U Status Risk Notes Problem Allergic rhinitis (55435111) Other allergic rhinitis (J30.89) Active confirmed Problem Chronic allergic conjunctivitis (68006399) Other chronic allergic conjunctivitis (H10.45) Active confirmed Vital Signs Temperature 98 degrees Fahrenheit 05/14/2025 Height 63 in 05/14/2025 Weight 182 lbs 05/14/2025 BMI 32.24 kg/m2 05/14/2025 Encounters Encounter Location Date Provider Diagnosis [facility] [address] [place] [address] 04/16/2025 Bartolome Farooq Other chronic allerg ic conjunctivitis H10.45 ; Other allergic rhinitis J30.89 and Deviated nasal septum J34.2 [facility] [address] [place] [address] 04/23/2025 GABRIELA NOLAN Other allergic rhini tis J30.89 and Other chronic allergic conjunctivitis H10.45 [facility] [address] [facility] Floor [address] [place] [address] 05/14/2025 GABRIELA NOLAN Other chronic allerg ic conjunctivitis H10.45 ; Other allergic rhinitis J30.89 and Deviated nasal septum J34.2 [facility] [address] [facility] Floor [address] [place] [address] 05/15/2025 GABRIELA NOLAN Assessments Encounter Date Diagnosis (ICD Code) Assessment Notes Treatment Notes Treatment Clinical Notes Section Notes 04/16/2025 Other allergic rhinitis (ICD-10 - J30.89) Moderately-controlled with Cetirizine 10 mg PO PRN + Flonase with good sx relief. Patient was on SCIT with outside business operations analyst from 04/2023 - 04/2024. She is interested [...] Patient was also recommended to contact outside business operations analyst to coordinate transfer of vials, if applicable, [...] She was previously on SCIT with outside business operations analyst from 04/2023 - 04/2024. Allergy skin prick [...] relief. Patient was on SCIT with outside business operations analyst from 04/2023 - 04/2024. She is interested [...] Patient was also recommended to contact outside business operations analyst to coordinate transfer of vials, if applicable, to our [facility]. - Allergen avoidance: If financially able to [...] Provider Name:Bartolome Farooq, 03/2025 01:00:00 PM, [address] [facility], [address], [place], [address], Insurance Providers Payer Name Payer Address Payer Phone Subscriber Number Group Number Insured Name Patient Relationship to Insured Coverage Start Date Coverage End Date [facility] [address] [place] [id number] Jaz Lynch Self - patient is the insured Medical (General) History Medical History History ICD Code Cervical Radiculopathy Epicondylitis IBS Fibromyalgia Scoliosis Restless leg syndrome Hypothyroidism GERD Anxiety Depression PTSD Binge Eating Disorder Deviated Septum Surgical History Surgery Date(Month/Year) Deviated Septum Surgery 2015 Bariatric Surgery 2021 Shoulder surgery 2015 Shoulder surgery 2018
== END 2025-09-12 11:16 | disposition home or self-care (01) ==
LOC: HO.HBS 11:05
PROVIDERS: PCP Internal Medicine; Visit Provider Physician Assistant Surgical
DX: E66.9 Obesity, unspecified (principal); Z68.30 Body mass index [BMI] 30.0-30.9, adult; Z90.3 Acquired absence of stomach [part of]; Z98.84 Bariatric surgery status
CPT/HCPCS: 98013

== ENCOUNTER 2025-09-23 12:19 | Outpatient (AMB) | payer OTHER, SELFPAY ==
--- OUTSIDE RECORDS SUMMARY | 2024-05-13 05:20 | XMS_ITS ---
Author Organization [facility] Address [address] [place] [phone] Care Team Providers Care Cryptologic Supervisor Name Role Phone America HYATT, Elke Primary Care Provider Vishal Salinas Jr [phone] REASON FOR VISIT IBS Encounters Encounter Location Date Provider Diagnosis [facility] [address] [place] [phone] 05/13/2024 Vishal Hutchinson Jr Plan Of Treatment No Information Progress Notes * LUCY WALSHDOB:1980 (45 yo F)Acc No.[id number]:05/13/2024 Progress Notes Patient: LUCY MARTINEZ Provider: Amaris Hutchinson MD :1980 A ge:43 Y S ex:Female Date:05/13/2024 Address:[address] [place], [place] [phone] Pcp:Elke Cross MD Subjective: * Chief Complaints: * 1 . IBS. * Medical History: Objective: * Vitals: Assessment: Plan: * Treatment: * * The named appointment provid er may or may not be the originator of this progress note, and it is not deemed complete until electronically signed by the appointment provider. Sign off status: Pending * Provider: Amaris Hutchinson MD Date: 0 05/13/2024 Generated for Printi ng/Faxing/eTransmitting on: 11/23/2024 03:06 PM EST
--- OUTSIDE RECORDS SUMMARY | 2024-05-29 04:40 | XMS_ITS ---
Author Organization [facility] Network Address [address] [facility] Floor 1 [place] [address] Care Team Providers Care Avaya Engineer Name Role Phone MANFRED MANRIQUEZ Primary Care Provider GABRIELA Maya [phone] REASON FOR VISIT e/no ref req c0 V, e/no ref req c0 V, e/no ref req c0 V Encounters Encounter Location Date Provider Diagnosis [facility] Network [address] [facility] Floor 1 [place] [address] 05/29/2024 GABRIELA NOLAN Plan Of Treatment Next Appt Details Provider Name:Bartolome Farooq, 03/2025 01:00:00 PM, [address] [facility], [address], [place], [address], Progress Notes * Jaz LYNCH LDOB: 1 (45 yo F)Acc No.[id number]:05/29/2024 Patient: Jaz Espinal Provider: Domingo Nolan MD :1980 A ge:44 Y S ex:Female Date:05/29/2024 Address:[address] [place], [place] [id number] Pcp:MANFRED MANRIQUEZ Subjective: * Chief Complaints: * e /no ref req c0 Ve/no ref req c0 Ve/no ref req c0 V * HPI: G eneral: DYSPHAGIA - Onset -Symptoms experienced: dysphagia/food impaction/chest pain/upper abdominal pain/reflux -Frequency of symptoms: X/X/X/X/X (corresponding to each symptom above) -Severity of symptoms of out 10: X/X/X/X/X (corresponding to each symptom above) - Triggering Factors - Alleviating Factors - Diagnostic EGD . * Electronic signature of GABRIELA NOLAN M.D. on 09/23/2025 at 03:06 PM EST Sign off status: Pending * Provider: Domingo Nolan MD Date: 0 05/29/2024 Generated for Aravind ventura/Nisha/Devi on: 1 11/23/2024 03:06 PM EST
--- OUTSIDE RECORDS SUMMARY | 2024-05-29 06:00 | XMS_ITS ---
Author Organization [facility] Network Address [address] [facility] Floor 1 [place] [address] Care Team Providers Care Drug Safety Data Management Specialist Name Role Phone MANFRED MANRIQUEZ Primary Care Provider Unavail GABRIELA Alvarez Unavailable [phone] REASON FOR VISIT e/no ref req c0 V Encounters Encounter Location Date Provider Diagnosis [facility] Network [address] [facility] Floor 1 [place] [address] 05/29/2024 GABRIELA NOLAN Plan Of Treatment Next Appt Details Provider Name:Bartolome Farooq, 03/2025 01:00:00 PM, [address] [facility], Floor 1, [place], [address], Progress Notes * Jaz LYNCH LDOB: 1 (45 yo F)Acc No.[id number]:05/29/2024 Patient: Jaz Espinal Provider: Domingo Nolan MD :1980 A ge:44 Y S ex:Female Date:05/29/2024 Address:[address] [place], [place] [phone] Pcp:MANFRED MANRIQUEZ Subjective: * Chief Complaints: * e /no ref req c0 V * Electronic signature of GABRIELA NOLAN M.D. on 09/23/2025 at 03:07 PM EST Sign off status: Pending * Provider: Domingo Nolan MD Date: 0 05/29/2024 Generated for Printi ng/Faxing/eTransmitting on: 1 11/23/2024 03:07 PM EST
--- OUTSIDE RECORDS SUMMARY | 2024-09-12 09:35 | XMS_ITS ---
Author Organization [facility] Address [address] [place] [phone] Care Team Providers Care News Correspondent Name Role Phone America HYATT, Elke Primary Care Provider Vishal Salnias Jr REASON FOR VISIT Patient presents today for IBS Encounters Encounter Location Date Provider Diagnosis [facility] [address] [place] [phone] 09/12/2024 Vishal Hutchinson Jr Plan Of Treatment No Information Progress Notes * LUCY WALSHDOB:1980 (45 yo F)Acc No.[id number]:09/12/2024 Progress Notes Patient: LUCY MARTINEZ Provider: Amaris Hutchinson MD :1980 A ge:44 Y S ex:Female Date:09/12/2024 Address:[address] [place], [place] [id number] Pcp:Elke Cross MD Subjective: * Chief Complaints: * 1 . Patient presents today for IBS. * Medical History: Objective: * Vitals: Assessment: Plan: * Treatment: * * The named appointment provid er may or may not be the originator of this progress note, and it is not deemed complete until electronically signed by the appointment provider. Sign off status: Pending * Provider: Amaris Hutchinson MD Date: Generated for Modestai ng/Faeverardog/eTransmitting on: 11/23/2024 10:58 AM EST
--- NOTE | 2025-09-23 12:05 | A.OFFWM_ITS ---
Intake Intake Visit Reasons: VIDEO PO LSG 02/06/22 Allergies cat dander (CAT DANDER) Allergy (Mild, Verified 01/02/25 12:56) EYES- TEAR, ITCHY, face swells dog dander (DOG DANDER) Allergy (Mild, Verified 01/02/25 12:56) EYES- TEAR, ITCHY, hives duloxetine (From CYMBALTA) Adverse Reaction (Intermediate, Verified 01/02/25 12:56) VAGINAL BLEEDING PFSH Medical History Bilateral knee pain Sacroiliac pain Positive DANIELE (antinuclear antibody) Refused influenza vaccine PTSD (post-traumatic stress disorder) Insomnia PONV (postoperative nausea and vomiting) Gastric ulcer Cholelithiasis Sacroiliitis Spondylosis of lumbar region without myelopathy or radiculopathy Scoliosis Goiter Restless leg syndrome ADHD (attention deficit hyperactivity disorder) Anxiety OCD (obsessive compulsive disorder) Hypertension GERD (gastroesophageal reflux disease) Vitamin D deficiency PCOS (polycystic ovarian syndrome) Body mass index [BMI]40.0-44.9, adult Irritable bowel syndrome with diarrhea Environmental and seasonal allergies Breast cancer screening by mammogram Dyslipidemia Gastritis Morbid obesity Hirsutism Telogen effluvium Heartburn Degenerative disc disease, lumbar Fibromyalgia Bipolar disorder Rosacea Acquired hypothyroidism Surgical History S/P laparoscopic sleeve gastrectomy Hx of bariatric surgery Hx of shoulder surgery Hx of cholecystectomy Hx of colonoscopy Miscarriage History of nasal surgery History of rotator cuff surgery Family History Father Diabetes mellitus Mother OCD (obsessive compulsive disorder) EITAN (generalized anxiety disorder) HTN (hypertension) Cancer Cervical cancer Family/Other FH: mental illness Maternal Grandmother EITAN (generalized anxiety disorder) Glaucoma Mental health disorder Maternal Grandfather Alzheimer disease Maternal Aunt Hypothyroidism Mental health disorder Paternal Grandmother Unknown family medical history Paternal Grandfather Unknown family medical history Sister Hypothyroidism Paternal Aunt Substance use disorder Maternal Uncle Substance use disorder Social History Household Members Other:: brother Housing: Apartment Are you a primary senior resident care director to a significant other at home: No Do you presently have visiting nurse or other home services: No Alcohol intake: never Patient Tobacco Use Status: Former Tobacco user Tobacco use type: Cigarette Cigarettes Per Day: 20 Years Smoked: 3 e-Cigarette/Vaping Use: Never Used service: No Current occupational status: disabled Cognitive needs: No Hearing needs: No Vision needs: Yes Behavioral Health Assessment Weight Management Therapy Therapy Notes Details Subjective: Patient reports she was able to discuss her concerns about psychiatric medications with her prescriber, specifically regarding insurance-related interruptions. She was advised to resume her regular dosage, and at her next appointment, they will explore strategies to prevent future disruptions in medication access. Patient states she feels less stressed since her brother is currently in [place] on vacation, as she has been feeling overwhelmed by his social and developmental challenges. She also expresses increased sensitivity about the upcoming holidays due to living alone, her family being in [place], and strained relationships with her partner?s parents. Objective: Patient attended a behavioral health visit via Telehealth. She was engaged and able to articulate her current functioning, progress, and ongoing challenges. Reviewed recent gains since the last appointment and discussed her recent encounter with TYRONE Reynoso. Patient was advised to use the [employer] anamaria to support her weight management goals. Discussed her current meal plan and developed a behavioral activation plan to address night eating, which she identified as occurring when she skips her morning shake. Explored family dynamics and their impact on her emotional well-being and used CBT based techniques to address this. Assessment/Response: * Mental status: ?Alert and oriented x3. Mood mildly anxious but improved compared to previous sessions; affect congruent. Thought process logical and coherent. No evidence of psychosis or cognitive impairment. * Risk reported/identified: Denies suicidal or homicidal ideation, intent, or plan. No acute safety concerns identified. Assessment & Plan Assessment & Plan (1) Unspecified mood [affective] disorder: Code(s): F39 - Unspecified mood [affective] disorder (2) Generalized anxiety disorder: Code(s): F41.1 - Generalized anxiety disorder Plan Continue behavioral health support on a bi-weekly basis. Reinforce use of behavioral activation strategies and meal planning to support weight-loss goals. Monitor medication adherence and follow up on insurance-related issues at next prescriber visit. * Next appointment scheduled for 10/07 at 1:00 PM. Telehealth Telehealth Telehealth Platform: [email or web address] Location of provider rendering services: other (Home office. [place], [place]) Location of patient: address on file Patient Identification confirmed using: Name, : Yes Telehealth method: video Patient verbally consented to treatment: Yes Patient verbally consented to billing insurance company: Yes Patient informed of any privacy concerns related to visit: Yes Minutes spent on Phone/Video with Pt.: 60 [place] [address] Tele Psytx >53 mins Patient Type Established Diagnoses Unspecified mood [affective] disorder F39 Generalized anxiety disorder F41.1 Time Spent (min) 60
--- OUTSIDE RECORDS SUMMARY | 2025-09-23 15:07 | XMS_ITS | Clinical Summary ---
Author Organization [facility] Address [address] [place] [address] Phone Care Team Providers Care Health Administration Teacher Name Role Phone Elke Cross MD Unavailable [phone] Social History Tobacco Use Types Packs/Day Years [...] age to complete this topic Care Teams Health Administration Teacher Relationship Specialty Start Date End Date Elke Cross MD [facility] [place] [address] PCP - Insurance 02/06/25
--- OUTSIDE RECORDS SUMMARY | 2025-09-23 15:07 | XMS_ITS | Encounter Summary ---
Author Organization [facility] Address [address] [facility] [address] [place] [address] Care Team Providers Care Heating Element Builder Name Role Phone Namrata Dixon MD Primary Care Provider [phone] Encounter Details Date Type Department Care Team (Late st Contact Info) Description 09/02/2025 Results Follow-Up [facility] Weight and Wellness [address] [address] Kati Murphy NP [address] [place] [address] Social History Tobacco Use Types Packs/Day Years [...] Description 10/02/2025 11:00 AM EST Office Visit [facility] Dermatology [place] [address] [place] [phone] Jeni Pearce MD 800 [facility] [address] [place] [address] 10/09/2025 8:15 AM EST Telemedicine [facility] Weight and Wellness [address] [address] Margie Garcia, WINDOW TINTER 91 [facility] [address] Dept. [facility] [place] [address] 11/24/2025 1:15 PM EST Office Visit [facility] Dermatology [address] [place] [address] Yarelis Hassan MD [address] [place] [address] 12/04/2025 11:00 AM EST Telemedicine [facility] Weight and Wellness [address] [address] Kati Murphy, BRANDON 30 [facility] Geremias. ELISSA [place] [id number] 12/04/2025 3:00 PM EST Telemedicine [facility] Weight and Wellness [address] [place] [address] 91 [facility] 208 Dept. [facility] [place] [address] 02/11/2026 11:30 AM EDT Office Visit [facility] Weight and Wellness [address] [place] [address] Kati Murphy NP 30 [facility] [place]remias. [place] [id number] 04/02/2026 11:00 AM EDT Office Visit [facility] Rheumatology 800 [facility] Bldg 3rd [place] [address] Jasper Nava MD 800 [facility] [address] [place] [address] documented as of this encounter Visit Diagnoses Not on filedocumented in this encounter Care Teams Heating Element Builder Relationship Specialty Start Date End Date Namrata Dixon MD [address] [place] [address] PCP - General Director Product Development 03/24/25 documented as of this encounter
--- OUTSIDE RECORDS SUMMARY | 2025-09-23 15:07 | XMS_ITS | Patient Health Record ---
Author Organization [facility] Address [address] [place] [address] Care Team Providers Care Microfilmer Name Role Phone [place] HYATT, Elke Primary Care Provider Vishal Salinas Jr Unavailable Allergies Allergen (clinical drug ingredient) Drug/Non Drug [...] Status W/U Status Risk Notes Problem Dysphagia (84361457) Dysphagia (R13.10) Active confirmed Problem Abnormal upper gastrointestinal barium series (R93.3) Active confirmed Plan Of Treatment Future Test Test Name Order Date UPPER GI ENDOSCOPY 02/22/2017 Insurance Providers Payer Name Payer Address Payer Phone Subscriber Number Group Number Insured Name Patient Relationship to Insured Coverage Start Date Coverage End Date [facility] [address] [address] [place], [place] [id number] [phone] [id number] NICO LUCY Self - patient is the insured MEDICAID OF [facility] [address] [place] [phone] [id number] LUCY WALSH Self - patient is the insured Medical (General) History Medical History History ICD Code hypothyroidism attention deficit disorder bipolar disorder PTSD vitamin D deficiency carpal tunnel syndrome menorrhagia
--- OUTSIDE RECORDS SUMMARY | 2025-09-23 15:07 | XMS_ITS | Clinical Summary ---
Author Organization [facility] Address [address] [facility] [address] [place] [address] Care Team Providers Care Manager Cardiac Name Role Phone Namrata Dixon MD Primary Care Provider [phone] Allergies Active Allergy Reactions Criticality Noted Date [...] Department Care Team Description 09/02/2025 Results Follow-Up [facility] Weight and Wellness 91 [facility] 208 [place] [address] Kati Murphy NP 08/27/2025 Orders Only [facility] [address] [place] [address] Kati Murphy NP 08/18/2025 Telephone [facility] Weight and Wellness 91 [facility] 208 [place] [address] Kati Murphy NP PA for Ozempic 1mg 08/13/2025 11:30 AM EDT Office Visit [facility] Weight [facility] Wellness [address] [address] Kati Murphy NP Class 3 severe obesity [...] Travel 08/05/2025 1:00 PM EDT Clinical Support [facility] [address] [address] Margie Garcia LICSW 08/05/2025 Travel from Last 3 Months Family History [...] Description 10/02/2025 11:00 AM EST Office Visit [facility] Dermatology [place] [address] [place] [address] Jeni Pearce MD 800 [facility] 114 [place] [address] 10/09/2025 8:15 AM EST Telemedicine [facility] Weight and Wellness [address] [address] Margie Garcia LICSW 91 [facility] [address] [facility] [place] [address] 11/24/2025 1:15 PM EST Office Visit [facility] Dermatology [address] [place] [address] Yarelis Hassan MD 260 [place] [address] 12/04/2025 11:00 AM EST Telemedicine [facility] Weight and Wellness [address] [place] [address] Kati Murphy NP 30 [facility] Geremias. ELIS[place] [id number] 12/04/2025 3:00 PM EST Telemedicine [facility] Weight and Wellness 91 [facility] 208 [place] [address] 91 [facility] [address] [facility] [place] [address] 02/11/2026 11:30 AM EDT Office Visit [facility] Weight and Wellness 91 [facility] 208 [place] [address] Kati Murphy, BRANDON 30 [facility] [place] [address] 04/02/2026 11:00 AM EDT Office Visit [facility] Rheumatology 800 [facility] Bldg 3rd [place] [address] Jasper Nava MD 800 [facility] [address] [place] [address] Health Maintenance Due Date Last Done Comments [...] Depression Screening 11/20/2024 COVID-19 Vaccine ( - 2024-2 6 season) 2025 Influenza Vaccine [...] - 08/28/2025 12:05 AM EDT Performed at: [facility] [place] [id number] Paper Rewinder Operator: Deirdre Owens MD, Phone: [phone] Kati Murphy NP LAB BLOOD ORDERABLES Final Result Performing Organization Address [facility] de Phone Number [facility] [place] [address], [facility] 1 * Iron, Ferritin, TIBC (08/27/2025 7:37 AM EDT) Pathologist [facility] Iron Bind.Cap.(TIBC) 339 250 - 450 ug/dL [facility] 1 UIBC 233 131 - 425 ug/dL [facility] 1 Iron 106 27 - 159 ug/dL [facility] 1 Iron Saturation 31 15 - 55 % [facility] 1 Ferritin 90 15 - 150 ng/mL [facility] 1 08/27/2025 7:37 AM EDT 08/27/2025 Narrative [facility] - 08/28/2025 3:45 AM EDT Performed at: [employer] [address] [id number] Paper Rewinder Operator: Deirdre Owens MD, Phone: [phone] Kati Murphy NP LAB BLOOD ORDERABLES Final Result Performing Organization Address [facility] Co de Phone Number [facility] [address] [place] [address], [facility] 1 * Copper (08/27/2025 7:37 AM EDT) Copper Lvl 110 80 - 158 ug/dL [facility] 1 Comment:Detection Limit = 5 08/27/2025 7:37 AM EDT 08/27/2025 Narrative [facility] - 08/30/2025 9:15 PM EDT Test(s) [id number]-Tvdtqh, Serum or Plasma was developed and its performance characteristics determined by [facility]. It has not been cleared or approved by the Food and Drug Administration. Performed at: [facility] [id number] Paper Rewinder Operator: Lisbet Skinner MD, Phone: [phone] Kati Murphy NP LAB BLOOD ORDERABLES Final Result Performing Organization Address [facility] Phone Number [facility] [address] [place] [address], [facility] 1 * Zinc (08/27/2025 7:37 AM EDT) Zinc Lvl 99 44 - 115 ug/dL [facility] 1 Comment:Detection Limit = 5 08/27/2025 7:37 AM EDT 08/27/2025 Narrative [facility] - 08/30/2025 9:15 PM EDT Test(s) [id number]-Kvca, Plasma or Serum was developed and its performance characteristics determined by [facility]. It has not been cleared or approved by the Food and Drug Administration. Performed at: [address] [id number] Paper Rewinder Operator: Lisbet Skinner MD, Phone: [phone] us Kati Murphy NP LAB BLOOD ORDERABLES Final Result Performing Organization Address [facility] Phone Number [facility] [address] [place] [address], [facility] 1 * (ABNORMAL) Vitamin A (08/27/2025 7:37 AM EDT) Pathologist [facility] Vitamin A Lvl 74.7(H) 20.1 - 62.0 ug/dL [facility] 1 Comment: Reference intervals for vitamin A determined from [facility] internal studies. Individuals with vitamin A less than 20 ug/dL are considered vitamin A deficient and those with serum concentrations less than 10 ug/dL are considered severely deficient. This test was developed and its performance characteristics determined by [facility]. It has not been cleared or approved by the Food and Drug Administration. 08/27/2025 7:37 AM EDT 08/27/2025 Narrative [facility] - 09/01/2025 9:45 AM EDT Performed at: - [address] [id number] Paper Rewinder Operator: Lisbet Skinner MD, Phone: [phone] Kati Murphy NP LAB BLOOD ORDERABLES Final Result [facility] [address] [place] [address], [facility] 1 * Vit D 25 hydroxy (08/27/2025 7:37 AM EDT) Pathologist [facility] Vitamin D, 25-Hydroxy 40.4 30.0 - 100.0 ng/mL [facility] 1 Comment: Vitamin D deficiency has been defined by the [place] of Medicine and an Endocrine Society practice guideline as a level of serum 25-OH vitamin D less than 20 ng/mL (1,2). The Endocrine Society went on to further define vitamin D insufficiency as a level between 21 and 29 ng/mL (2). 1. IOM ([place] of Medicine). 2010. Dietary reference intakes for calcium and D. [place]: The National Academies Press. 2. Jacob MF, Mike NC, Varsha ABURTO, et al. Evaluation, treatment, and prevention of vitamin D deficiency: an Endocrine Society clinical practice guideline. JCEM. 2010; 96(7):1911-30. 08/27/2025 7:37 AM EDT 08/27/2025 Narrative [facility] - 08/28/2025 1:15 AM EDT Performed at: - [facility] [id number] Paper Rewinder Operator: Deirdre Owens MD, Phone: [phone] Kati Murphy NP LAB BLOOD ORDERABLES Final Result Performing Organization Address [facility] Co de Phone Number [facility] [address] [place] [address], [facility] 1 * CBC (08/27/2025 7:37 AM EDT) WBC 8.5 3.4 - 10.8 x10E3/uL [facility] [...] - 08/27/2025 10:15 PM EDT Performed at: [address] [place] [id number] Paper Rewinder Operator: Deirdre Owens MD, Phone: [phone] Kati Murphy NP LAB BLOOD ORDERABLES Final Result Performing Organization Address [facility] Co de Phone Number [facility] [address] [place] [address], [facility] 1 * Vitamin B1 (Thiamine), Whole Blood (08/27/2025 7:37 AM EDT) Vitamin B1 Whl Bld 133.5 66.5 - 200.0 nmol/L [facility] 1 08/27/2025 7:37 AM EDT 08/27/2025 Narrative [facility] - 08/30/2025 9:15 AM EDT Test(s) [id number]-Dqb. B1, Whole Blood was developed and its performance characteristics determined by [facility]. It has not been cleared or approved by the Food and Drug Administration. Performed at: [address] [id number] Paper Rewinder Operator: Lisbet Skinner MD, Phone: [phone] Kati Murphy NP LAB BLOOD ORDERABLES Final Result Performing Organization Address [facility] de Phone Number [facility] [address] [place] [address], [facility] 1 * Alkaline phosphatase (08/27/2025 7:37 AM EDT) Alk Phosphatase 73 41 - 116 IU/L [facility] 1 08/27/2025 7:37 AM EDT 08/27/2025 Narrative [facility] - 08/27/2025 11:15 PM EDT Performed at: [address] [id number] Paper Rewinder Operator: Deirdre Owens MD, Phone: [phone] Kati Murphy NP LAB BLOOD ORDERABLES Final Result Performing Organization Address [facility] de Phone Number [facility] [address] [place] [address], [facility] 1 * PTH, intact (08/27/2025 7:37 AM EDT) PTH, Intact 22 15 - 65 pg/mL [facility] 1 08/27/2025 7:37 AM EDT 08/27/2025 Narrative [facility] - 08/28/2025 4:15 AM EDT Performed at: [facility] [id number] Paper Rewinder Operator: Deirdre Owens MD, Phone: [phone] Kati Murphy NP LAB BLOOD ORDERABLES Final Result Performing Organization Address [facility] de Phone Number [facility] [address] [place] [address], [place] [facility] 1 * Hemoglobin A1c (08/27/2025 7:37 AM EDT) [facility] HgbA1C 5.2 4.8 - 5.6 % [facility] 1 Comment: Prediabetes: 5.7 - 6.4 Diabetes: >6.4 Glycemic control for adults with diabetes: <7.0 08/27/2025 7:37 AM EDT 08/27/2025 Narrative [facility] - 08/28/2025 12:05 AM EDT Performed at: [address] [place] [id number] Paper Rewinder Operator: Deirdre Owens MD, Phone: [phone] Kati Murphy NP LAB BLOOD ORDERABLES Final Result Performing Organization Address [facility] de Phone Number [facility] [address] [place] [address], [facility] 1 * Folate (08/27/2025 7:37 AM EDT) [facility] Folate 17.1 >3.0 ng/mL [facility] 1 Comment: A serum folate concentration of less than 3.1 ng/mL is considered to represent clinical deficiency. 08/27/2025 7:37 AM EDT 08/27/2025 Narrative [facility] - 08/28/2025 7:45 AM EDT Performed at: [address] [place] [id number] Paper Rewinder Operator: Deirdre Owens MD, Phone: [phone] Kati Murphy NP LAB BLOOD ORDERABLES Final Result Performing Organization Address [facility] de Phone Number [facility] [address] [place] [address], [facility] 1 * Vitamin B12 (08/27/2025 7:37 AM EDT) [facility] Vitamin B12 600 232 - 1,245 pg/mL [facility] 1 08/27/2025 7:37 AM EDT 08/27/2025 Narrative [facility] - 08/28/2025 5:45 AM EDT Performed at: [facility] [id number] Paper Rewinder Operator: Deirdre Owens MD, Phone: [phone] Kati Murphy NP LAB BLOOD ORDERABLES Final Result Performing Organization Address [facility] Co de Phone Number [facility] [address] [place] [address], [facility] 1 * (ABNORMAL) Cholesterol, total (08/27/2025 7:37 AM EDT) Cholesterol 241(H) 100 - 199 mg/dL [facility] 1 08/27/2025 7:37 AM EDT 08/27/2025 Narrative [facility] - 08/27/2025 11:15 PM EDT Performed at: [facility] [id number] Paper Rewinder Operator: Deirdre Owens MD, Phone: [phone] Kati Murphy NP LAB BLOOD ORDERABLES Final Result Performing Organization Address [facility] de Phone Number [facility] [address] [place] [address], [facility] 1 * Calcium, total (08/27/2025 7:37 AM EDT) Calcium 9.9 8.7 - 10.2 mg/dL [facility] 1 08/27/2025 7:37 AM EDT 08/27/2025 Narrative [facility] - 08/27/2025 11:15 PM EDT Performed at: [facility] [id number] Paper Rewinder Operator: Deirdre Owens MD, Phone: [phone] Kati Murphy NP LAB BLOOD ORDERABLES Final Result Performing Organization Address [facility] Co de Phone Number [facility] [address] [place] [id number], [facility] 1 * Albumin (08/27/2025 7:37 AM EDT) Albumin 4.6 3.9 - 4.9 g/dL [facility] 1 08/27/2025 7:37 AM EDT 08/27/2025 Narrative [facility] - 08/27/2025 11:15 PM EDT Performed at: 01 - [facility] [id number] Paper Rewinder Operator: Deirdre Owens MD, Phone: [phone] Kati Murphy NP LAB BLOOD ORDERABLES Final Result [facility] [address] [place] [address], [facility] 1 from Last [address] [place] [address] [place] [address] ACO Care Teams Manager Cardiac Relationship Specialty Start Date End Date Namrata Dixon MD [address] [place] [phone] PCP - General Tactical Intelligence Officer 03/24/25
--- OUTSIDE RECORDS SUMMARY | 2025-09-23 15:07 | XMS_ITS | Patient Health Record ---
Author Organization [facility] Network Address [address] 1 [place] [address] Care Team Providers Care Test Analyst Name Role Phone MANFRED MANRIQUEZ Primary Care Provider Unavail able GABRIELA NOLAN Unavailable [phone] Bartolome Farooq Unavailable [phone] Allergies Allergen (clinical drug ingredient) Drug/Non Drug [...] W/U Status Risk Notes Problem Allergic rhinitis (54824749) Other allergic rhinitis (J30.89) Active confirmed Problem Chronic allergic conjunctivitis (29614749) Other chronic allergic conjunctivitis (H10.45) Active confirmed Vital Signs Temperature 98 degrees Fahrenheit 05/14/2025 Height 63 in 05/14/2025 Weight 182 lbs 05/14/2025 BMI 32.24 kg/m2 05/14/2025 Encounters Encounter Location Date Provider Diagnosis [facility] [address] 1 [place] [address] 04/16/2025 Bartolome Farooq Other chronic allerg ic conjunctivitis H10.45 ; Other allergic rhinitis J30.89 and Deviated nasal septum J34.2 [facility] Network [address] 1 [place] [address] 04/23/2025 GABRIELA NOLAN Other allergic rhini tis J30.89 and Other chronic allergic conjunctivitis H10.45 [facility] [address] 1 [place] [address] 05/14/2025 GABRIELA NOLAN Other chronic allerg ic conjunctivitis H10.45 ; Other allergic rhinitis J30.89 and Deviated nasal septum J34.2 [facility] [address] 1 [place] [address] 05/15/2025 GABRIELA NOLAN Assessments Encounter Date Diagnosis (ICD Code) Assessment Notes Treatment Notes Treatment Clinical Notes Section Notes 04/16/2025 Other allergic rhinitis (ICD-10 - J30.89) Moderately-controlled with Cetirizine 10 mg PO PRN + Flonase with good sx relief. Patient was on SCIT with outside associate school psychologist from 04/2023 - 04/2024. She is interested [...] Patient was also recommended to contact outside associate school psychologist to coordinate transfer of vials, if applicable, [...] She was previously on SCIT with outside associate school psychologist from 04/2023 - 04/2024. Allergy skin prick [...] relief. Patient was on SCIT with outside associate school psychologist from 04/2023 - 04/2024. She is interested [...] Patient was also recommended to contact outside associate school psychologist to coordinate transfer of vials, if applicable, to our [facility]. - Allergen avoidance: If [...] Provider Name:Bartolome Farooq, 03/2025 01:00:00 PM, [address], [place], [address], Insurance Providers Payer Name Payer Address Payer Phone Subscriber Number Group Number Insured Name Patient Relationship to Insured Coverage Start Date Coverage End Date [facility] [address] [place] [id number] Jaz Lynch Self - patient is the insured Medical (General) History Medical History History ICD Code Cervical Radiculopathy Epicondylitis IBS Fibromyalgia Scoliosis Restless leg syndrome Hypothyroidism GERD Anxiety Depression PTSD Binge Eating Disorder Deviated Septum Surgical History Surgery Date(Month/Year) Deviated Septum Surgery 2015 Bariatric Surgery 2021 Shoulder surgery 2015 Shoulder surgery 2018
== END 2025-09-23 13:34 | disposition home or self-care (01) ==
LOC: HO.HBST 12:19
PROVIDERS: PCP Internal Medicine; Visit Provider Counselor Mental Health
DX: F39 Unspecified mood [affective] disorder (principal); F41.1 Generalized anxiety disorder
CPT/HCPCS: 90837

== ENCOUNTER 2025-10-07 13:09 | Outpatient (AMB) | payer OTHER, SELFPAY ==
--- OUTSIDE RECORDS SUMMARY | 2024-05-13 05:20 | XMS_ITS ---
Author Organization [facility] Address [address] [place] [phone] Care Team Providers Care Electrolysis Operator Name Role Phone America HYATT, Elke Primary Care Provider Tati Hutchinson Jr, Vishal Suazo REASON FOR VISIT IBS Encounters Encounter Location Date Provider Diagnosis [facility] [address] [place] [phone] 05/13/2024 Vishal Hutchinson Jr Plan Of Treatment No Information Progress Notes * LUCY WALSHDOB:1980 (45 yo F)Acc No.[id number]:05/13/2024 Progress Notes Patient: LUCY MARTINEZ Provider: Amaris Hutchinson MD :1980 A ge:43 Y S ex:Female Date:05/13/2024 Address:[address] [place], [place] [phone] Pcp:Elke Cross MD Subjective: * Chief Complaints: * I BS Billing Information: * Procedure Codes: * The named appointment provid er may or may not be the originator of this progress note, and it is not deemed complete until electronically signed by the appointment provider. Sign off status: Pending * Provider: Amaris Hutchinson MD Date: 0 05/13/2024 Generated for Printi ng/Faxing/eTransmitting on: 12/08/2024 05:09 AM EST
--- OUTSIDE RECORDS SUMMARY | 2024-09-12 09:35 | XMS_ITS ---
Author Organization [facility] Address [address] [place] [phone] Care Team Providers Care Accountant Auditor Name Role Phone America HYATT, Elke Primary Care Provider Tati Hutchinson Jr, Vishal Suazo REASON FOR VISIT Patient presents today for IBS Encounters Encounter Location Date Provider Diagnosis [facility] [address] [place] [phone] 09/12/2024 Vishal Hutchinson Jr Plan Of Treatment No Information Progress Notes * LUCY WALSHDOB:1980 (45 yo F)Acc No.[id number]:09/12/2024 Progress Notes Patient: LUCY MARTINEZ Provider: Amaris Hutchinson MD :1980 A ge:44 Y S ex:Female Date:09/12/2024 Address:[address] [place], [place] [phone] Pcp:Elke Cross MD Subjective: * Chief Complaints: * P atient presents today for IBS Billing Information: * Procedure Codes: * The named appointment provid er may or may not be the originator of this progress note, and it is not deemed complete until electronically signed by the appointment provider. Sign off status: Pending * Provider: Amaris Hutchinson MD Date: Generated for Printi ng/Faxing/eTransmitting on: 12/08/2024 05:08 AM EST
--- OUTSIDE RECORDS SUMMARY | 2025-10-04 15:15 | XMS_ITS | Encounter Summary ---
Author Organization [facility] r Address [address] [place] [address] Phone Care Team Providers Care Rebar Worker Name Role Phone Namrata Dixon MD Unavailable [phone] Namrata Dixon MD Primary Care Provider [phone] Reason for Referral * Consultation (Routine) - Pending Review Specialty Diagnoses / Procedures Referred By Leonel morejon Referred To Contact Podiatry Eduardo Jackson PA-C [address] [place] [address] Phone: tel: fax: [facility] [address]th [place] [address] Phone: tel: fax: Referral ID Status Reason Start Date Expiration Date Visits Requested Visits Authorized [id number] Pending Review Specialty Services Required 5 10/04/2026 1 1 Reason for Visit * Reason Comments Foot Pain Patient misssed a st ep 3 days ago, going down the stairs, has left foot arch pain Encounter Details Date Type Department Care Team (Late st Contact Info) Description 10/04/2025 3:15 PM EST - 10/04/2025 4:49 PM EST Emergency [facility] Emergency Department [address] [place] [address] Guy Foy MD [address] [place] [address] Left foot pain (Primary Dx) Discharge Disposition: Home or Self Care Social History Tobacco Use Types Packs/Day Years Used Date Smoking Tobacco: Never Smokeless Tobacco: Never Tobacco Cessation:Counseling Given: Not Answered Medications Answer Date Recorded Do you have trouble paying for prescriptions? No 10/04/2025 Utilities Answer Date Recorded Do you have trouble paying f or utilites (heat, electricity, internet, or phone bill)? No 10/04/2025 Food Answer Date Recorded Within the past 12 months, w ere you worried whether your food would run out before you got money to buy more? Never true 1 12/04/2024 Not on file 10/04/2025 Transportation Answer Date Recorded Do you have trouble getting transportation to medical appointments? No 10/04/2025 EOV Answer Date Recorded Many patients we see here ar e being hurt, controlled or threatened by someone they have a relationship with. Are you in a relationship where someone is hurting, controlling or scaring you? No 10/04/2025 Comments Unknown Sex and Gender Information Value Date Recorded Sex Assigned at Female 06/10/2024 4:31 PM EDT Legal Sex Female 4:17 PM EDT Gender Identity Female 06/10/2024 4:31 PM EDT Sexual Orientation Straight 10/04/2025 12 :36 PM EST documented as of this encounter Last Filed Vital Signs Vital Sign Reading Time Taken Comments Blood Pressure 107/76 10/04/2025 2:46 PM EST Pulse 88 10/04/2025 2:46 PM EST Temperature 36.1 C (97 F) 10/04/2025 2:46 PM EST Respiratory Rate 16 10/04/2025 2:46 PM EST Oxygen Saturation 100% 10/04/2025 2:46 PM EST Inhaled Oxygen Concentration - - Weight 77.6 kg (171 lb) 10/04/2025 2:46 PM EST Height 160 cm (5' 3 ) 10/04/2025 2:46 PM EST Body Mass Index 30.29 10/04/2025 2:46 PM EST documented in this encounter Functional Status * Calculated C-SSRS Risk Score (Lifetime/Recent) Answer Date of Assessment Author No Risk Indicated 10/04/2025 2:49 PM EST Harriet Whyte RN * [place] Suicide Severity Rating Scale (Screener/Recent Self-Report) Question Answer Date of Assessment Author 1. Wish to be (Past 1 Month) No 025 2:49 PM Harriet Huber RN 2. Non-Specific Active Suici dwayne Thoughts (Past 1 Month) No 10/04/2025 2:49 PM EST Harriet Whyte RN 6. Suicidal Behavior (Lifetime) No 5 2:49 PM EST Harriet Whyte RN documented as of this encounter Discharge Instructions * Discharge Instructions* Eduardo Jackson PA-C - 10/04/2025 4:07 PM EST You were evaluated in the emergency department for left foot pain. Your x-ray was negative for any fracture or dislocation. We put you in a postop shoe for comfort with ambulation. We prescribed Tylenol and ibuprofen for pain and inflammation. Recommend you follow-up with your PCP in 1 day for re-evaluation obtain referral to podiatry for further evaluation and management. Return to the ER immediately with any worsening or concerning symptoms. * Attachments The following attachments cannot be sent through Care Everywhere. * Foot Pain (Vietnamese) documented in this encounter Medications at Time of Discharge acetaminophen (TYLENOL) 325 mg tablet Take 2 tablets (650 mg total) by mouth every 6 (six) hours as needed for pain for up to 10 days. 60 tablet 10/04/2025 10/14/2025 ibuprofen (ADVIL,MOTRIN) 600 mg tablet Take 1 tablet (600 mg total) by mouth every 8 (eight) hours as needed for pain for up to 10 days. 30 tablet 10/04/2025 10/14/2025 documented as of this encounter ED Notes * Eduardo Jackson PA-C - 10/04/2025 12:30 PM EST History Chief Complaint Patient presents with Foot Pain Patient misssed a step 3 days ago, going down the stairs, has left foot arch pain 45 yo female with no significant PMH reported experiencing sharp pain in the left foot for the pastthree days. The pain began after stepping hard while descending from the first step to the ground. The patient described the pain as sharp and occurring primarily during walking and when pushing off the foot. The patient stated that the pain was not as noticeable when at rest. The patient did not report any numbness or tingling and mentioned having some ankle issues in the past. X-ray results indicated swelling and some soft tissue involvement, but no bone fractures were noted. The patient had been taking Tylenol, which provided some relief. Patient is a 45 y.o. female. The history is provided by the patient. No educational sign language interpreter was used. Review of Systems Negative except for what is stated in the HPI Physical Exam BP 107/76 (BP Cuff Location: Right Upper Arm, Patient Position: Sitting) Pulse 88 Temp 97 ??F (36.1 ??C) (Tympanic) Resp 16 Ht 1.6 m (5' 3 ) Wt 77.6 kg (171 lb) SpO2 100% BMI 30.29 kg/m?? Physical Exam Constitutional: Appearance: Normal appearance. HENT: Head: Normocephalic and atraumatic. Mouth/Throat: Mouth: Mucous membranes are moist. Eyes: Conjunctiva/sclera: Conjunctivae normal. Pulmonary: Effort: Pulmonary effort is normal. Musculoskeletal: Cervical back: Normal range of motion. Left foot: Decreased range of motion. Swelling and tenderness present. No deformity. Neurological: Mental Status: She is alert and oriented to person, place, and time. Nursing note and vitals reviewed. Medical Decision Making Independent Clinical Interpretation of Imaging: Clinical Interpretation of: Other Independent interpretation by me: Left foot x-ray is negative for fracture or dislocation. Assessment and Plan RADIOLOGY EXAM: XR Left Foot, Minimum 3 Views Result Date: 10/04/2025 IMPRESSION: There is soft tissue swelling laterally. Alignment is preserved. Lisfranc interval is preserved. There is no acute fracture-dislocation. The joint spaces are preserved. There is no articular erosion. There is no abnormal soft tissue calcification or radiopaque foreign body. Electronically signed by: Medhat Davenport MD Signed date and time: 10/04/2025 3:13 PM Patient was seen in the emergency department for her left plantar foot arch pain that been present for 3 days ago after she was going down steps and missed a step. Vital signs are stable. Physical exam is remarkable for some swelling at the medial aspect of the left foot. No bruising. Significant tenderness to palpation. X-ray was negative. Neurovascular intact distally. The Pt is well appearing,hemodynamically stable, and shows no evidence of neurovascular injury or compartment syndrome. Patient was placed in a postop shoe. Declined crutches. Instructed to follow-up with podiatry and PCP. Prescribed Tylenol and ibuprofen on discharge. Final diagnoses: None ED Course as of 10/04/25 1558 Sat Oct 04, 2025 1556 XR Left Foot, Minimum 3 Views [NG] ED Course User Index [NG] Eduardo Jackson PA-C documented in this encounter Miscellaneous Notes * ED Attending Note - Guy Foy MD - 10/04/2025 12:30 PM EST ED Attending Note This patient was independently managed by the [facility] MDM Final diagnoses: Left foot pain (Primary) documented in this encounter Plan of Treatment Scheduled Referrals Name Type Priority Associated Diagnoses Order Schedule Ambulatory Referral To Surgery: Podiatry: General Outpatient Referral Routine Ordered: 10/04/2025 documented as of this encounter Procedures Procedure Name Priority Date/Time Associated Diagnosis Comments XR LEFT FOOT MINIMUM 3 VIEWS STAT 10/04/2025 3:03 PM EST documented in this encounter Results * XR Left Foot, Minimum 3 Views (10/04/2025 3:03 PM EST) [facility] PATIENT HEIGHT 160 GE RIS-IC [facility] PATIENT WEIGHT 77.565 GE RIS-IC Anatomical Region Laterality Modality Lower Extremities Left Computed Radio graphy 10/04/2025 3:11 PM EST Impressions 10/04/2025 3:13 PM EST There is soft tissue swelling laterally. Alignment is preserved. Lisfranc interval is preserved. There is no acute fracture-dislocation. The joint spaces are preserved. There is no articular erosion. There is no abnormal soft tissue calcification or radiopaque foreign body. Electronically signed by: Medhat Davenport MD Signed date and time: 10/04/2025 3:13 PM Narrative 10/04/2025 3:13 PM EST HISTORY: Left foot pain. COMPARISON: None. TECHNIQUE: Left foot, 3 views. Procedure Note Medhat Davenport MD - 10/04/2025 HISTORY: Left foot pain. COMPARISON: None. TECHNIQUE: Left foot, 3 views. IMPRESSION: There is soft tissue swelling laterally. Alignment is preserved. Lisfrancinterval is preserved. There is no acute fracture-dislocation. The jointspaces are preserved. There is no articular erosion. There is no abnormalsoft tissue calcification or radiopaque foreign body. Electronically signed by: Medhat Davenport MD Signed date and time: 10/04/2025 3:13 PM Guy Herrera MD IMG DIAGNOSTIC IMAGING ORD ERABLES Final Result documented in this encounter Visit Diagnoses Diagnosis Left foot pain- Primary Pain in soft tissues of limb documented in this encounter Care Teams Rebar Worker Relationship Specialty Start Date End [place] [address] PCP - Insurance 10/04/25 [place] [address] PCP - General Internal Medicine 10/04/25 documented as of this encounter
--- OUTSIDE RECORDS SUMMARY | 2025-10-07 05:00 | XMS_ITS ---
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 Name Role Phone MANFRED MANRIQUEZ Primary Care Provider Unavail able GABRIELA NOLAN [phone] Allergies Allergen (clinical drug ingredient) Drug/Non Drug Allergy documented on EMR Reaction Allergy Type Onset Date Status duloxetine Cymbalta vaginal bleeding Drug Allergy Active REASON FOR VISIT AR/AC, IBS-Mixed, Tele, francis - IBS-D labs (OLD) Medications Medication SIG (Take, Route, Frequency, Duration) Notes Start Date End Date Status Adderall XR 25 mg PO BID Activ e Alclometasone Dipropionate 0.05% Active Ozempic 1.0 SC Q1W Active clonazePAM 0.5 mg PO QD Active Calcium Carbonate 250 mg PO BID Active Vraylar 3 mg PO QD Active Metformin & Diet Manage Prod 500 mg PO BID Active Levothyroxine Sodium 50 mcg PO QD Active Spironolactone 100 mg PO QD Ac tive Fluticasone Propionate 93 MCG/ACT Exhaler Suspension 2 sprays (1 spray in each nostril) Nasally Twice a day; Duration: 30 days 10/07/2025 Active Lyrica 75 mg PO BID Active EPINEPHrine 0.3 MG/0.3ML Solution Auto-injector Inject 0.30mg into thigh as needed Injection Inject 0.30mg into thigh as needed; Duration: 30 days 05/14/2025 Active Clindamycin HCl 1% topical gel PRN Active EpiPen 2-Matty 0.3 MG/0.3ML Solution Auto-injector as directed Injection PRN; Duration: 14 days Active Cetirizine HCl 10 MG Tablet 1 tablet Orally Once a day; Duration: 90 days 10/07/2025 Active Viibryd 10 mg PO WD Active Social History Section Notes: Social history documented on 04/16/2025 and reviewed on 10/07/2025 with no changes. Smoking: nonsmoker. Alcohol: nondrinker. [...] Problem Status W/U Status Risk Notes Problem Irritable bowel syndrome (12395763) Mixed irritable bowel syndrome (K58.2) Active confirmed Problem Irritable bowel syndrome with diarrhea (322757784) Irritable bowel syndrome with diarrhea (K58.0) Active confirmed Problem Crohn's disease (80235598) Crohn's disease, unspecified, without complications (K50.90) Active confirmed Problem Gastroesophageal reflux disease (002275059) GERD (K21.9) Active confirmed Problem CSG - Chronic superficial gastritis (845551336) Chronic superficial gastritis without bleeding (K29.30) Active confirmed Vital Signs Temperature 98 degrees Fahrenheit 10/07/2025 Height 63 in 10/07/2025 Weight 171 lbs 10/07/2025 BMI 30.29 kg/m2 10/07/2025 Encounters Encounter Location Date Provider Diagnosis [facility] [address] [place] [address] 10/07/2025 GABRIELA NOLAN Other chronic allerg ic conjunctivitis H10.45 ; Other allergic rhinitis J30.89 ; Mixed irritable bowel syndrome K58.2 ; Irritable bowel syndrome with diarrhea K58.0 ; Crohn's disease, unspecified, without complications K50.90 ; GERD K21.9 ; Chronic superficial gastritis without bleeding K29.30 and Helicobacter pylori [H. pylori] as the cause of diseases classified elsewhere B96.81 Assessments Encounter Date Diagnosis (ICD Code) Assessment Notes Treatment Notes Treatment Clinical Notes Section Notes 10/07/2025 Other chronic allergic conjunctivitis (ICD-10 - H10.45) See AR for treatment plan. 10/07/2025 Other allergic rhinitis (ICD-10 - J30.89) Moderately-controlled with Cetirizine 10 mg PO PRN + Flonase with good sx relief. 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 We discussed the three different modalities for treating allergic rhinoconjunctivitis including allergen avoidance, medication management and immunotherapy. - Recommended the patient start SCIT as discussed during last visit. - Allergen avoidance: If financially able to [...] normal saline sinus rinses, proper technique reviewed. - Follow up in 4 months regarding symptomatic management. 10/07/2025 Mixed irritable bowel syndrome (ICD-10 - K58.2) 10/07/2025 Irritable bowel syndrome with diarrhea (ICD-10 - K58.0) 10/07/2025 Crohn's disease, unspecified, without complications (ICD-10 - K50.90) 10/07/2025 GERD (ICD-10 - K21.9) Patient has confirmed H pylori infection that was treated with standard 4-drug regimen. We confirmed eradication today, 6 weeks after completion of treatment. 10/07/2025 Chronic superficial gastritis without bleeding (ICD-10 - K29.30) 10/07/2025 Helicobacter pylori [H. pylori] as the cause of diseases classified elsewhere (ICD-10 - B96.81) 10/07/2025 Other This note was transcribed by Kiran Jeronimo for Dr. Bartolome Farooq and will be completed within 7 days of date of service. LEVEL 4 Number and complexity of problems (moderate): 2 or more stable chronic illnesses - AR, AC Risks (moderate): -Prescription drug management- SCIT Plan Of Treatment Medication Medication Name Sig Start Date Stop Date Notes Fluticasone Propionate 93 MCG/ACT Exhaler Suspension 2 sprays (1 spray in each nostril) Nasally Twice a day; Duration: 30 days 10/07/2025 Cetirizine HCl 10 MG Tablet 1 tablet Ora lly Once a day; Duration: 90 days 10/07/2025 Treatment Notes Assessment Notes Other chronic allergic conjunctivitis Se e AR for treatment plan. Other allergic rhinitis Moderately-controlled with Cetirizine 10 mg PO PRN + Flonase with good sx relief. 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 We discussed the three different modalities for treating allergic rhinoconjunctivitis including allergen avoidance, medication management and immunotherapy. - Recommended the patient start SCIT as discussed during last visit. - Allergen avoidance: If financially able to [...] normal saline sinus rinses, proper technique reviewed. - Follow up in 4 months regarding symptomatic management. GERD Patient has confirme d H pylori infection that was treated with standard 4-drug regimen. We confirmed eradication today, 6 weeks after completion of treatment. Other This note was transcribed by Kiran Jeronimo for Dr. Bartolome Farooq and will be completed within 7 days of date of service. LEVEL 4 Number and complexity of problems (moderate): 2 or more stable chronic illnesses - AR, AC Risks (moderate): -Prescription drug management- SCIT Pending Test Test Name Order Date OVA AND PARASITES WITH GIARDIA ANTIGEN 1 12/07/2024 COMPREHENSIVE METABOLIC PANEL 10/07/2025 CALCIUM 10/07/2025 CBC (INCLUDES DIFF/PLT) 10/07/2025 TISSUE TRANSGLUTAMINASE AB, IGA 10/07/20 25 CALPROTECTIN, STOOL 10/07/2025 IMMUNOGLOBULIN A 10/07/2025 TSH W/REFLEX TO FT4 10/07/2025 SALMONELLA AND SHIGELLA, CULTURE 025 CAMPYLOBACTER, CULTURE 10/07/2025 CLOSTRIDIUM DIFFICILE TOXIN/GDH W/REFL T O PCR 10/07/2025 HELICOBACTER PYLORI, UREA BREATH TEST Next Appt Details Follow Up: 4 Months, Reason: Scit f/u Provider Name:GABRIELA NOLAN, 01:30:00 PM, [address] [place] [address], [address], [place], [address], Provider Name:GABRIELA NOLAN, 01:30:00 PM, [address] [place] [address], [address], [place], [address], Provider Name:GABRIELA NOLAN, 07:40:00 AM, [address] [place] [address], [address], [place], [address], Provider Name:GABRIELA NOLAN, 07:40:00 AM, [address] [place] [address], [address], [place], [address], Provider Name:GABRIELA NOLAN, 11:20:00 AM, [address] [place] [address], [address], [place], [address], Provider Name:GABRIELA NOLAN, 02:00:00 PM, [address] [place] [address], [address], [place], [address], Provider Name:GABRIELA NOLAN, 01:30:00 PM, [address] [place] [address], [address], [place], [address], Provider Name:GABRIELA NOLAN, 11:30:00 AM, [address] [place] [address], [address], [place], [address], Provider Name:GABRIELA NOLAN, 01:00:00 PM, [address] [place] [address], [address], [place], [address], History and Physical Notes * HPI (History of Present Illness) Category Sub-Category Detail Notes Category Not es General ------DATA------- 04/23/2025 SPT- Positive: None 04/23/2025 ID- Positive: Jax, birch, hickory, ragweed, mite dpter Endoscopy 2019 Outside Colonoscopy: 3 polyps identified per patient report. Recommended repeat in 7 years (due 2026) 2019 Outside EGD: Indicated dysphagia per patient report. Patient is unsure if bx were performed. Physical Examination Category Sub-Category Detail Notes Section Note s General appearance: No evidence of malnourishment, well developed Neck: Soft, normal carotid upstroke and amplitude without bruits Lungs: Clear to auscultation, no crackles CV: RRR, no murmurs Abdomen: Normal active bowel sounds, no enlarged spleen or liver, no distension, no rebound Extremities: No edema in lower extremities Skin: no rash, no swelling Psych: Alert and oriented x 3 Lymphatics/hematology/Immunology: no enlarged lymph nodes Examination Category Sub-Category Detail Notes Category Not es AEROALLERGENS 04/23/2025 Aeroallergen Skin Testing PRICK: Positive control was positive and negative control was negative. Positive: None Negative: jax, birch, cedar, black walnut, hackberry, hickory, maple, willow, oak, pine, poplar, sycamore, mulberry, cocklebur, firebush, dock-sorrel, avina's quarters, mugwort, pigweed, plantain, ragweed, sorrel sheep, nettle, bermuda, ephraim grass, grass mix, mite dfar, mite dpter, cat, dog, cockroach, feather mix, gerbil, guinea pig, hamster, horse, mouse, parakeet feathers, rabbit, rat, acremonium, alternaria, aspergillus fumi., aureobasidium, bipolaris, botrytis, han, chaetomium, cladosporium s., cladosporium h., curvularia spicifera, epicoccum, fusarium, helmintho sporium, m. plumbeus, penicillium mix, rhizopus, stemphylium INTRADERMAL: Positive control was positive and negative control was negative. Positive: Jax, birch, hickory, ragweed, mite dpter Negative: cedar, elm, maple, willow, oak, dock-sorrel, avina's quarters, mugwort, pigweed, plantain, sorrel sheep, nettle, bermuda, ephraim grass, grass mix, mite dfar, cat, dog, cockroach. Progress Notes * Jaz LYNCH LDOB: [birth year] (45 yo F)Acc No.[id number]:10/07/2025 Progress Notes Patient: Jaz Espinal Provider: Domingo Nolan MD :1980 A ge:45 Y S ex:Female Date:10/07/2025 Address:[address] [place] [address] Pcp:MANFRED MANRIQUEZ Subjective: * Chief Complaints: * A R/ACIBS-MixedTeleleung - IBS-D labs (OLD) * HPI: G eneral: We h ave the pleasure of seeing Jaz via [employer] on 10/07/2025 for evaluation of the above. We previously saw the patient on 09/23/2025. The patient encounter today occurred via telehealth (telemedicine) with the patient's verbal consent. Method of Telehealth used was a real-time, interactive, secure and private audio and video. Physical location of the patient was at their home. Physical location of the physician was in their private office [facility]. The following people were present during this video call: the patient, provider, and pt escort (Korin Newman). RHINOCONJUNCTIVITIS SYMPTOMS: Onset - early adulthood Symptoms - nasal congestion, nasal discharge, sneezing, nasal pruritus, ocular pruritus, post nasal drip, headaches Triggers/Seasonality - worse in spring, around grass, trees, cat Use of Controller Medications & alleviation - Cetirizine 10 mg PO PRN and Flonase with good sx relief Dustmite protection, carpets, humidifiers, air purifier? - Y/N/Y/Y Pets - dog but has not noticed symptoms near dog Past testing results - Y; with outside construction mgr. Immunotherapy in the past? - Y; patient was on SCIT with outside construction mgr from 04/2023 - 04/2024. She then restarted Asthma? - N Today, 10/07/2025, patient notes she has no changes in AR/AC symptoms and currently uses Cetirizine 10mg PO QHS. Pt underwent SPT/ID testing here on 04/23/2025 with positive to several aeroallergens (See DATA) and started SCIT on 09/24/2025. She is currently building up. IBS-MIXED 1) Onset - Adolescence 2) Frequency - Patient reports sx range from constipation to diarrhea (constipation sx occur 70% of the time) 3) Bowel movement (frequency, Hancock scale) 4) Sensation of incomplete evacuation of rectum 5) Triggering factors - N 6) Relieving factors - Dulcolax provides good sx relief 7) Previous SIBO testing- N 8) Breath test for food intolerance? N 9) Favorable response to the following treatment: Dulcolax PRN (during constipation episodes) 10) Tried in the Past: Miralax, Metamucil (she reports the concept of powder in water was difficult to drink) 12) Has squatty potty been tried? N 13) Alarming signs (weight loss, change of appetite Y or N) 14) Abdominal imaging studies (when, where and findings): N 15) EGD or colonoscopy (when, where and findings): Y EGD indicated dysphagia per patient report and colonoscopy in 2019 that indicated 3 polyps per patient report, repeat recommended in 2026. The procedure was done at [facility]. 16) Celiac panel or thyroid labs: N/N 17) H. Pylori test or fecal Labs: N/N 18) BM/day: Patient reports going up to 3-4 days w/o BM and then episodes of diarrhea occur with 1-2 BM/day (BS 4/BS 6). Of note, patient underwent bariatric surgery in 2021 and reported that sx remained the same afterwards. She denies any rectal bleeding or BRBPR. - 1 tablespoon / 8 oz of water - 1 tablespoon / 8 oz of water metamucil - in 2 weeks, if she doesn't feel better we will proceed with - h pylori + ibs-d labs + celiac - f/u in 2 weeks The patient presents today for a discussion of symptom management. ------DATA------- 04/23/2025 SPT- Positive: None 04/23/2025 ID- Positive: Jax, birch, hickory, ragweed, mite dpter Endoscopy 2019 Outside Colonoscopy: 3 polyps identified per patient report. Recommended repeat in 7 years (due 2026) 2019 Outside EGD: Indicated dysphagia per patient report. Patient is unsure if bx were performed. * ROS: C onstitutional: Denies fevers, chills, sweats, anorexia, fatigue, malaise, weight loss Cardiovascular: Denies chest pains, palpitations, syncope, orthopnea, PND, peripheral edema. Respiratory: Denies excessive sputum, hemoptysis Eyes, Ears, nose and throat: See HPI Skin: Denies hives, rash or blisters. * Medical History: Cervical Radiculopathy Epicondylitis IBS Fibromyalgia Scoliosis Restless leg syndrome Hypothyroidism GERD Anxiety Depression PTSD Binge Eating Disorder Deviated Septum AR/AC Medical History Verified * Surgical History: Deviated Septum Surgery 2015 Bariatric Surgery 2021 Shoulder surgery 2016 Shoulder surgery 2019 Surgical History verified. * Hospitalization/Major Diagno stic Procedure: Denies Past Hospitalization. Hospitalization Verified. * Family History: F amily History Verified.. Family history documented on 03/27/2025 and reviewed on 10/07/2025 with no changes. Allergic rhinitis (season allergy): Y; paternal history. Asthma: N Food allergy: N Urticaria: N. * Social History: Social History Verified. S ocial history documented on 04/16/2025 and reviewed on 10/07/2025 with no changes. Smoking: nonsmoker. Alcohol: nondrinker. [...] mites): none -Pet: none -Indoor smoking: no. * Medications: T akingCetirizine HCl 10 MG Tablet 1 tablet Orally Once a day Fluticasone Propionate 93 MCG/ACT Exhaler Suspension 2 sprays (1 spray in each nostril) Nasally Twice a day Levothyroxine Sodium , Notes to Pharmacist: 50 mcg PO QDSpironolactone , Notes to Pharmacist: 100 mg PO QDVraylar , Notes to Pharmacist: 3 mg PO QDMetformin & Diet Manage Prod , Notes to Pharmacist: 500 mg PO BIDOzempic , Notes to Pharmacist: 1.0 SC [id number] , Notes to Pharmacist: 0.5 mg PO QDAdderall XR , Notes to Pharmacist: 25 mg PO BIDAlclometasone Dipropionate , Notes to Pharmacist: 0.05%Calcium Carbonate , Notes to Pharmacist: 250 mg PO BIDViibryd , Notes to Pharmacist: 10 mg PO WDLyrica , Notes to Pharmacist: 75 mg PO BIDClindamycin HCl , Notes to Pharmacist: 1% topical gel PRNEpiPen 2-Matty 0.3 MG/0.3ML Solution Auto-injector as directed Injection PRN EPINEPHrine 0.3 MG/0.3ML Solution Auto-injector Inject 0.30mg into thigh as needed Injection Inject 0.30mg into thigh as needed Medication List reviewed and reconciled with the patientTaking Cetirizine HCl 10 MG Tablet 1 tablet Orally Once a day Taking Fluticasone Propionate 93 MCG/ACT Exhaler Suspension 2 sprays (1 spray in each nostril) Nasally Twice a day Taking Levothyroxine Sodium , Notes to Pharmacist: 50 mcg PO QDTaking Spironolactone , Notes to Pharmacist: 100 mg PO QDTaking Vraylar , Notes to Pharmacist: 3 mg PO QDTaking Metformin & Diet Manage Prod , Notes to Pharmacist: 500 mg PO BIDTaking Ozempic , Notes to Pharmacist: 1.0 SC [id number] clonazePAM , Notes to Pharmacist: 0.5 mg PO QDTaking Adderall XR , Notes to Pharmacist: 25 mg PO BIDTaking Alclometasone Dipropionate , Notes to Pharmacist: 0.05%Taking Calcium Carbonate , Notes to Pharmacist: 250 mg PO BIDTaking Viibryd , Notes to Pharmacist: 10 mg PO WDTaking Lyrica , Notes to Pharmacist: 75 mg PO BIDTaking Clindamycin HCl , Notes to Pharmacist: 1% topical gel PRNTaking EpiPen 2-Matty 0.3 MG/0.3ML Solution Auto-injector as directed Injection PRN Taking EPINEPHrine 0.3 MG/0.3ML Solution Auto-injector Inject 0.30mg into thigh as needed Injection Inject 0.30mg into thigh as needed Medication List reviewed and reconciled with the patient * Allergies: C ymbalta: vaginal bleedingyesAllergies Verified. Objective: * Vitals: B SD:30.29Index, Wt:171lbs, Ht: 63 in, Temp:98F. * Examination: A EROALLERGENS: 0 04/23/2025 Aeroallergen Skin Testing PRICK: Positive control was positive and negative control was negative. Positive: None Negative: jax, birch, cedar, black walnut, hackberry, hickory, maple, willow, oak, pine, poplar, sycamore, mulberry, cocklebur, firebush, dock-sorrel, avina's quarters, mugwort, pigweed, plantain, ragweed, sorrel sheep, nettle, bermuda, ephraim grass, grass mix, mite dfar, mite dpter, cat, dog, cockroach, feather mix, gerbil, guinea pig, hamster, horse, mouse, parakeet feathers, rabbit, rat, acremonium, alternaria, aspergillus fumi., aureobasidium, bipolaris, botrytis, han, chaetomium, cladosporium s., cladosporium h., curvularia spicifera, epicoccum, fusarium, helmintho sporium, m. plumbeus, penicillium mix, rhizopus, stemphylium INTRADERMAL: Positive control was positive and negative control was negative. Positive: Jax, birch, hickory, ragweed, mite dpter Negative: cedar, elm, maple, willow, oak, dock-sorrel, avina's quarters, mugwort, pigweed, plantain, sorrel sheep, nettle, bermuda, ephraim grass, grass mix, mite dfar, cat, dog, cockroach. * Physical Examination: G eneral appearance: No evidence of malnourishment, well developed Neck: Soft, normal carotid upstroke and amplitude without bruits Lungs: Clear to auscultation, no crackles CV: RRR, no murmurs Abdomen: Normal active bowel sounds, no enlarged spleen or liver, no distension, no rebound Extremities: No edema in lower extremities Skin: no rash, no swelling Psych: Alert and oriented x 3 Lymphatics/hematology/Immunology: no enlarged lymph nodes . Assessment: * Assessment: 1. O ther allergic rhinitis - J30.89 (Primary) 2 . O ther chronic allergic conjunctivitis - H10.45 3 . M ixed irritable bowel syndrome - K58.2 ?4. I rritable bowel syndrome with diarrhea - K58.0 5 . C rohn's disease, unspecified, without complications - K50.90 6 . G ERD - K21.9 7 . C hronic superficial gastritis without bleeding - K29.30 8 . H elicobacter pylori [H. pylori] as the cause of diseases classified elsewhere - B96.81 Plan: * Treatment: 2. O ther chronic allergic conjunctivitis Notes: See AR for treatment plan. 3. I rritable bowel syndrome with diarrhea L AB: OVA AND PARASITES WITH GIARDIA ANTIGEN L AB: COMPREHENSIVE METABOLIC PANEL L AB: CALCIUM L AB: CBC (INCLUDES DIFF/PLT) L AB: TISSUE TRANSGLUTAMINASE AB, IGA L AB: IMMUNOGLOBULIN A L AB: TSH W/REFLEX TO FT4 L AB: SALMONELLA AND SHIGELLA, CULTURE L AB: CAMPYLOBACTER, CULTURE L AB: CLOSTRIDIUM DIFFICILE TOXIN/GDH W/REFL TO PCR 4. C rohn's disease, unspecified, without complications L AB: CALPROTECTIN, STOOL 5. G ERD L AB: HELICOBACTER PYLORI, UREA BREATH TEST Notes: Patient has confirmed H pylori infection that was treated with standard 4-drug regimen. We confirmed eradication today, 6 weeks after completion of treatment. 6. C hronic superficial gastritis without bleeding L AB: HELICOBACTER PYLORI, UREA BREATH TEST 7. H elicobacter pylori [H. pylori] as the cause of diseases classified elsewhere L AB: HELICOBACTER PYLORI, UREA BREATH TEST 8. O thers Notes: This note was transcribed by Kiran Jeronimo for Dr. Bartolome Farooq and will be completed within 7 days of date of service. LEVEL 4 Number and complexity of problems (moderate): 2 or more stable chronic illnesses - AR, AC Risks (moderate): -Prescription drug management- SCIT * Follow Up: 4 Months (Reason: Scit f/u) Billing Information: * Visit Code: 54439 Office Visit, Est Pt., Level 4. * Electronic signature of GABRIELA NOLAN M.D. on 10/08/2025 at 05:08 AM EST Sign off status: Pending * Provider: Domingo Nolan MD Date: 12/07/2024 Generated for Aravind ventura/Nisha/Devi on: 12/08/2024 05:08 AM EST
--- NOTE | 2025-10-07 13:00 | A.OFFWM_ITS ---
Intake Intake Visit Reasons: VIDEO PO LSG 02/06/22 Allergies cat dander (CAT DANDER) Allergy (Mild, Verified 01/02/25 12:56) EYES- TEAR, ITCHY, face swells dog dander (DOG DANDER) Allergy (Mild, Verified 01/02/25 12:56) EYES- TEAR, ITCHY, hives duloxetine (From CYMBALTA) Adverse Reaction (Intermediate, Verified 01/02/25 12:56) VAGINAL BLEEDING PFSH Medical History Bilateral knee pain Sacroiliac pain Positive DANIELE (antinuclear antibody) Refused influenza vaccine PTSD (post-traumatic stress disorder) Insomnia PONV (postoperative nausea and vomiting) Gastric ulcer Cholelithiasis Sacroiliitis Spondylosis of lumbar region without myelopathy or radiculopathy Scoliosis Goiter Restless leg syndrome ADHD (attention deficit hyperactivity disorder) Anxiety OCD (obsessive compulsive disorder) Hypertension GERD (gastroesophageal reflux disease) Vitamin D deficiency PCOS (polycystic ovarian syndrome) Body mass index [BMI]40.0-44.9, adult Irritable bowel syndrome with diarrhea Environmental and seasonal allergies Breast cancer screening by mammogram Dyslipidemia Gastritis Morbid obesity Hirsutism Telogen effluvium Heartburn Degenerative disc disease, lumbar Fibromyalgia Bipolar disorder Rosacea Acquired hypothyroidism Surgical History S/P laparoscopic sleeve gastrectomy Hx of bariatric surgery Hx of shoulder surgery Hx of cholecystectomy Hx of colonoscopy Miscarriage History of nasal surgery History of rotator cuff surgery Family History Father Diabetes mellitus Mother OCD (obsessive compulsive disorder) EITAN (generalized anxiety disorder) HTN (hypertension) Cancer Cervical cancer Family/Other FH: mental illness Maternal Grandmother EITAN (generalized anxiety disorder) Glaucoma Mental health disorder Maternal Grandfather Alzheimer disease Maternal Aunt Hypothyroidism Mental health disorder Paternal Grandmother Unknown family medical history Paternal Grandfather Unknown family medical history Sister Hypothyroidism Paternal Aunt Substance use disorder Maternal Uncle Substance use disorder Social History Household Members Other:: brother Housing: Apartment Are you a primary customer care assistant to a significant other at home: No Do you presently have visiting nurse or other home services: No Alcohol intake: never Patient Tobacco Use Status: Former Tobacco user Tobacco use type: Cigarette Cigarettes Per Day: 20 Years Smoked: 3 e-Cigarette/Vaping Use: Never Used service: No Current occupational status: disabled Cognitive needs: No Hearing needs: No Vision needs: Yes Behavioral Health Assessment Weight Management Therapy Therapy Notes Details Subjective: The patient reports experiencing low energy and feeling down, attributing these symptoms to seasonal changes and earlier darkness. Despite this, she feels motivated and has been increasing her social interactions. She states her fibromyalgia is well controlled and denies having migraines in the past few weeks. Weight has remained stable, and she continues semaglutide 1 mg weekly. Objective: The patient attended a behavioral health follow-up session. Psychoeducation was provided regarding the impact of seasonal changes on mood. A light therapy lamp was recommended to help address symptoms of seasonal affective disorder. CBT- based interventions focused on identifying and challenging negative thoughts related to seasonal changes, and behavioral activation strategies were reinforced to maintain motivation and social engagement. The patient was encouraged to continue engaging in pleasurable activities and to monitor her mood and energy levels. Supportive counseling was provided to validate her efforts in managing her health and maintaining stability with her fibromyalgia and weight. Assessment/Response: * Mental status: Alert and oriented ?4. Appearance appropriate. Mood mildly depressed but motivated, affect congruent. Thought process logical and coherent. No evidence of psychosis. Insight and judgment intact. * Risk reported/identified: ?No suicidal or homicidal ideation, self-harm, or other acute safety concerns identified. Assessment & Plan Assessment & Plan (1) Unspecified mood [affective] disorder: Code(s): F39 - Unspecified mood [affective] disorder (2) Generalized anxiety disorder: Code(s): F41.1 - Generalized anxiety disorder Plan Follow up in 2 weeks. * Next appointment scheduled for 10/21/2025 at 1:00 PM via video. Telehealth [facility] Location of provider rendering services: other (Home office. [place], [place]) Location of patient: address on file Patient Identification confirmed using: Name, : Yes Telehealth method: video Patient verbally consented to treatment: Yes Patient verbally consented to billing insurance company: Yes Patient informed of any privacy concerns related to visit: Yes Minutes spent on Phone/Video with Pt.: 60 [place] [address] Tele Psytx >53 mins Patient Type Established Diagnoses Unspecified mood [affective] disorder F39 Generalized anxiety disorder F41.1 Time Spent (min) 60
--- OUTSIDE RECORDS SUMMARY | 2025-10-08 05:08 | XMS_ITS | Patient Health Record ---
Author Organization [facility] Address [address] [place] [address] Care Team Providers Care Port Purser Name Role Phone [place] HYATT, Elke Primary Care Provider Vishal Salinas Jr Unavailable Allergies Allergen (clinical drug ingredient) Drug/Non Drug Allergy documented on EMR Reaction Allergy Type Onset Date Status cats,dogs,seasonal,g ra ss.... (uncoded) Unknown Allergy Active duloxetine Cymbalta Unknown Drug Allergy Active levothyroxine Levothyroxine Sodium Unknown Drug Allergy Active Reason For Referral No Information Medications Medication SIG (Take, Route, Frequency, Duration) Notes Start Date End Date Status LaMICtal 150 MG Tablet 1 tablet Orally o nce a day Active Vitamin D Active Vitamin B-1 Active hydrOXYzine HCl 50 MG Tablet 1 tablet as needed Orally BID Active traZODone HCl 100 MG Tablet 1 tablet at bedtime Orally Once a day Active Lyrica 150 MG Capsule 1 capsule Orally T wice a day 02/22/2017 Active Omeprazole 20 MG Capsule Delayed Release 1 capsule Orally Once a day Active Bentyl 20 MG Tablet 2 capsules Orally prn Active cloNIDine HCl 0.1 MG Tablet 1 tablet Ora lly Twice a day Active FLUoxetine HCl 60 MG Tablet 1 tablet Ora lly Once a day Active Social History Social History Additional Details Category Social Info Options Details Miscellaneous: Marital status: single Occupation: unemployed Problems Problem Type SNOMED Code ICD Code Onset Dates Problem Status W/U Status Risk Notes Problem Dysphagia (06842931) Dysphagia (R13.10) Active confirmed Problem Abnormal upper gastrointestinal barium series (R93.3) Active confirmed Plan Of Treatment Future Test Test Name Order Date UPPER GI ENDOSCOPY 02/22/2017 Insurance Providers Payer Name Payer Address Payer Phone Subscriber Number Group Number Insured Name Patient Relationship to Insured Coverage Start Date Coverage End Date [facility] [address] [address] [place], [place] [id number] [phone] [id number] LUCY WALSH Self - patient is the insured MEDICAID OF [facility] [address] [place] [address] [phone] [id number] LUCY WALSH Self - patient is the insured Medical (General) History Medical History History ICD Code hypothyroidism attention deficit disorder bipolar disorder PTSD vitamin D deficiency carpal tunnel syndrome menorrhagia
--- OUTSIDE RECORDS SUMMARY | 2025-10-08 05:08 | XMS_ITS | Clinical Summary ---
Author Organization [facility] Address [address] [place] [address] Phone Care Team Providers Care Machine Operator Slitter Technician Name Role Phone Namrata Dixon MD Unavailable Namrata Dixon MD Primary Care Provider [phone] Allergies Active Allergy Reactions Criticality Noted Date Comments Cat Dander Other (See Comments) 07/30/2020 Duloxetine Other (See Comments) 03/20/2025 Vaginal bleeding Medications ibuprofen (ADVIL,MOTRIN) 600 mg tablet Take 1 tablet (600 mg total) by mouth every 8 (eight) hours as needed for pain for up to 10 days. 30 tablet 10/04/2025 5 Active acetaminophen (TYLENOL) 325 mg tablet Take 2 tablets (650 mg total) by mouth every 6 (six) hours as needed for pain for up to 10 days. 60 tablet 10/04/2025 5 Active Active Problems Problem Noted Date Diagnosed Date Left foot pain 10/07/2025 Encounters Date Type Department Care Team Description 10/04/2025 3:15 PM EST - 10/04/2025 4:49 PM EST Emergency [facility] [address] [place] [address] Guy Foy MD Left foot pain (Primary Dx) Discharge Disposition: Home or Self Care 10/04/2025 Travel from Last 3 Months Social History [...] Orientation Straight 10/04/2025 12 :36 PM EST Last Filed Vital Signs Vital Sign Reading [...] Mass Index 30.29 10/04/2025 2:46 PM EST Plan of Treatment Health Maintenance Due Date [...] 2008 MAMMOGRAM 2021 COVID-19 Vaccine (1 - 2024-2 6 season) 2025 INFLUENZA VACCINE (#1) 2025 [...] 3 VIEWS STAT 10/04/2025 3:03 PM EST from Last 3 Months Results * XR Left Foot, Minimum 3 Views (10/04/2025 3:03 PM EST) [facility] PATIENT HEIGHT 160 GE RIS-IC [facility] PATIENT WEIGHT 77.565 GE RIS-IC Anatomical Region [...] IMG DIAGNOSTIC IMAGING ORD ERABLES Final Result from Last 3 Months Care Teams Machine Operator Slitter Technician Relationship Specialty Start Date End [place] [address] PCP - Insurance 10/04/25 [place] [address] PCP - General Internal Medicine 10/04/25
--- OUTSIDE RECORDS SUMMARY | 2025-10-08 05:08 | XMS_ITS | Clinical Summary ---
Author Organization [facility] (historical information prior to 08/23/2025 only) Address [address] [place] [address] Care Team Providers Care Joint Maker Machine Name Role Phone Unavailable Primary Care Provider [...] patient's age to complete this topic Insurance [facility]
--- OUTSIDE RECORDS SUMMARY | 2025-10-08 05:09 | XMS_ITS | Patient Health Record ---
Author Organization [facility] Address [address] [place] [address] Care Team Providers Care City Maintenance Manager Name Role Phone MANFRED MANRIQUEZ Primary Care Provider Unavail able GABRIELA NOLAN Unavailable [phone] Bartolome Farooq Unavailable [phone] Allergies Allergen (clinical drug ingredient) Drug/Non Drug Allergy documented on EMR Reaction Allergy Type Onset Date Status duloxetine Cymbalta vaginal bleeding Drug Allergy Active Reason For Referral No Information Medications Medication SIG (Take, Route, Frequency, Duration) Notes Start Date End Date Status Viibryd 10 mg PO WD Active Lyrica 75 mg PO BID Active Vraylar 3 mg PO QD Active EPINEPHrine 0.3 MG/0.3ML Solution Auto-injector Inject 0.30mg into thigh as needed Injection Inject 0.30mg into thigh as needed; Duration: 30 days 05/14/2025 Active Metformin & Diet Manage Prod 500 mg PO BID Active Levothyroxine Sodium 50 mcg PO QD Active Clindamycin HCl 1% topical gel PRN Active Spironolactone 100 mg PO QD Ac tive EpiPen 2-Matty 0.3 MG/0.3ML Solution Auto-injector as directed Injection PRN; Duration: 14 days Active Adderall XR 25 mg PO BID Activ e Cetirizine HCl 10 MG Tablet 1 tablet Orally Once a day; Duration: 90 days 10/07/2025 Active Alclometasone Dipropionate 0.05% Active Ozempic 1.0 SC Q1W Active clonazePAM 0.5 mg PO QD Active Fluticasone Propionate 93 MCG/ACT Exhaler Suspension 2 sprays (1 spray in each nostril) Nasally Twice a day; Duration: 30 days 10/07/2025 Active Calcium Carbonate 250 mg PO BID [...] smoking: no. Social history documented on 04/16/2025 and reviewed on 09/24/2025 with no changes. Smoking: nonsmoker. Alcohol: nondrinker. [...] smoking: no. Social history documented on 04/16/2025 and reviewed [...] Problem Status W/U Status Risk Notes Problem Gastroesophageal reflux disease (849625097) GERD (K21.9) Active confirmed Problem CSG - Chronic superficial gastritis (403564862) Chronic superficial gastritis without bleeding (K29.30) Active confirmed Problem Crohn's disease (73755825) Crohn's disease, unspecified, without complications (K50.90) Active confirmed Problem Allergic rhinitis (55571495) Other allergic rhinitis (J30.89) Active confirmed Problem Chronic allergic conjunctivitis (59516731) Other chronic allergic conjunctivitis (H10.45) Active confirmed Problem Irritable bowel syndrome with diarrhea (095836591) Irritable bowel syndrome with diarrhea (K58.0) Active confirmed Problem Irritable bowel syndrome (02826747) Mixed irritable bowel syndrome (K58.2) Active confirmed Vital Signs Temperature 98 degrees Fahrenheit 10/07/2025 Oximetry 98 % 09/24/2025 Height 63 in 10/07/2025 Weight 171 lbs 10/07/2025 BMI 30.29 kg/m2 10/07/2025 Encounters Encounter Location Date Provider Diagnosis [facility] [employer] [address] [place] [address] [address] [place] 10/07/2025 GABRIELA NOLAN Other chronic allerg ic conjunctivitis H10.45 ; Other allergic rhinitis J30.89 ; Mixed irritable bowel syndrome K58.2 ; Irritable bowel syndrome with diarrhea K58.0 ; Crohn's disease, unspecified, without complications K50.90 ; GERD K21.9 ; Chronic superficial gastritis without bleeding K29.30 and Helicobacter pylori [H. pylori] as the cause of diseases classified elsewhere B96.81 [facility] [employer] [address] [place] [address] [address] [place] 04/16/2025 Bartolome Din Other chronic allerg ic conjunctivitis H10.45 ; Other allergic rhinitis J30.89 and Deviated nasal septum J34.2 [facility] Network [address] [place] [address] 04/23/2025 GABRIELA NOLAN Other allergic rhini tis J30.89 and Other chronic allergic conjunctivitis H10.45 [facility] [address] [place] 05/14/2025 GABRIELA NOLAN Other chronic allerg ic conjunctivitis H10.45 ; Other allergic rhinitis J30.89 and Deviated nasal septum J34.2 [facility] [address] [place] 09/20/2025 GABRIELA NOLAN Other allergic rhini tis J30.89 [facility] Network [address] [place] 09/22/2025 GABRIELA NOLAN Other allergic rhini tis J30.89 [facility] Network [address] [place] [address] [address] [place] 09/23/2025 GABRIELA NOLAN Other allergic rhini tis J30.89 [facility] Network [address] [place] 09/24/2025 Bartolome Din Other chronic allerg ic conjunctivitis H10.45 and Other allergic rhinitis J30.89 [facility] Network [address] [place] 09/25/2025 GABRIELA NOLAN Other allergic rhini tis J30.89 [facility] Network [address] [place] 10/01/2025 GABRIELA NOLAN Other allergic rhini tis J30.89 [facility] [address] [place] 05/15/2025 GABRIELA NOLAN [facility] [address] [place] 09/24/2025 Bartolome Farooq Assessments Encounter Date Diagnosis (ICD Code) Assessment Notes Treatment Notes Treatment Clinical Notes Section Notes 04/16/2025 Other allergic rhinitis (ICD-10 - J30.89) Moderately-controlled with Cetirizine 10 mg PO PRN + Flonase with good sx relief. Patient was on SCIT with outside part time receptionist from 04/2023 - 04/2024. She is interested [...] Patient was also recommended to contact outside part time receptionist to coordinate transfer of vials, if applicable, to our [facility]. - Allergen avoidance: If financially able [...] She was previously on SCIT with outside part time receptionist from 04/2023 - 04/2024. Allergy skin prick [...] - H10.45) See AR for treatment plan. 09/20/2025 Other allergic rhinitis (ICD-10 - J30.89) TREATMENT PLAN 1) Avoidance of allergens. 2) The patient is an excellent candidate for IT, and will proceed with injections within the next month. FAILED MEDICATIONS: Patient failed Zyrtec and Flonase. ANTIGENS USED TO PREP VIALS: Jax, birch, hickory, ragweed, mite dfar, mite dpter PATIENT TARGET MAINTENANCE DOSE: 0.4mL 1:1 [facility] Number of vials: 2 Concentration prepared: 1:1000, 1:100, 1:10, 1:1 Number of doses: Total number of vials (2) x Doses per vial (24) = Total number of doses (48) 20 were billed on this date of service. 09/22/2025 Other allergic rhinitis (ICD-10 - J30.89) TREATMENT PLAN 1) Avoidance of allergens. 2) The patient is an excellent candidate for IT, and will proceed with injections within the next month. FAILED MEDICATIONS: Patient failed Zyrtec and Flonase. ANTIGENS USED TO PREP VIALS: Jax, birch, hickory, ragweed, mite dfar, mite dpter PATIENT TARGET MAINTENANCE DOSE: 0.4mL 1:1 [facility] Number of vials: 2 Concentration prepared: 1:1000, 1:100, 1:10, 1:1 Number of doses: Total number of vials (2) x Doses per vial (24) = Total number of doses (48) 20 were billed on this date of service. 09/23/2025 Other allergic rhinitis (ICD-10 - J30.89) TREATMENT PLAN 1) Avoidance of allergens. 2) The patient is an excellent candidate for IT, and will proceed with injections within the next month. FAILED MEDICATIONS: Patient failed Zyrtec and Flonase. ANTIGENS USED TO PREP VIALS: Jax, birch, hickory, ragweed, mite dfar, mite dpter PATIENT TARGET MAINTENANCE DOSE: 0.4mL 1:1 [facility] Number of vials: 2 Concentration prepared: 1:1000, 1:100, 1:10, 1:1 Number of doses: Total number of vials (2) x Doses per vial (24) = Total number of doses (48) 8 were billed on this date of service. 09/24/2025 Other chronic allergic conjunctivitis (ICD-10 - H10.45) See AR for treatment plan. 09/25/2025 Other allergic rhinitis (ICD-10 - J30.89) TREATMENT PLAN 1) Avoidance of allergens. 2) The patient is an excellent candidate for IT, and will proceed with injections within the next month. FAILED MEDICATIONS: Patient failed Zyrtec and Flonase. ANTIGENS USED TO PREP VIALS: Jax, birch, hickory, ragweed, mite dfar, mite dpter PATIENT TARGET MAINTENANCE DOSE: 0.4mL 1:1 10/01/2025 Other allergic rhinitis (ICD-10 - J30.89) TREATMENT PLAN 1) Avoidance of allergens. 2) The patient is an excellent candidate for IT, and will proceed with injections within the next month. FAILED MEDICATIONS: Patient failed Zyrtec and Flonase. ANTIGENS USED TO PREP VIALS: Jax, birch, hickory, ragweed, mite dfar, mite dpter PATIENT TARGET MAINTENANCE DOSE: 0.4mL 1:1 10/07/2025 Other chronic allergic conjunctivitis (ICD-10 - H10.45) See AR for treatment plan. 10/07/2025 Mixed irritable bowel syndrome (ICD-10 - K58.2) 10/07/2025 Other allergic rhinitis (ICD-10 - J30.89) Moderately-controlled with Cetirizine 10 mg PO PRN + Flonase with good sx relief. Patient was on SCIT with outside part time receptionist from 04/2023 - 04/2024. We discussed the [...] up in 4 months regarding symptomatic management. 04/16/2025 Deviated nasal septum (ICD-10 - J34.2) [...] relief. Patient was on SCIT with outside part time receptionist from 04/2023 - 04/2024. She is interested [...] Patient was also recommended to contact outside part time receptionist to coordinate transfer of vials, if applicable, [...] normal saline sinus rinses, proper technique reviewed. 09/24/2025 Other allergic rhinitis (ICD-10 - J30.89) Moderately-controlled with Cetirizine 10 mg PO PRN + Flonase with good sx relief. Patient was on SCIT with outside part time receptionist from 04/2023 - 04/2024. We discussed the [...] up in 4 months regarding symptomatic management. 04/23/2025 Other chronic allergic conjunctivitis (ICD-10 - H10.45) 05/14/2025 Deviated nasal septum (ICD-10 - J34.2) She also c/o of deviated septum and notes difficulty breathing, onset ~2015 with recent exacerbation. Today, 04/16/2025, we discussed: - Patient recommended to schedule a consultation with ENT for additional w/u. 10/07/2025 Irritable bowel syndrome with diarrhea (ICD-10 [...] AC Risks (moderate): -Prescription drug management- SCIT 04/16/2025 Other This note was transcribed by [...] Risks (moderate): -Prescription drug management- SCIT discussion 09/20/2025 Other This note was transcribed by Chan Rick for Dr. Gabriela Nolan and will be completed within 7 days of date of service. 09/22/2025 Other This note was transcribed by Chan Rick for Dr. Gabriela Nolan and will be completed within 7 days of date of service. 09/23/2025 Other This note was transcribed by Chan Rick for Dr. Gabriela Nolan and will be completed within 7 days of date of service. 09/24/2025 Other This note was transcribed by Kiran Jeronimo for Dr. Bartolome Farooq and will be completed within 7 days of date of service. LEVEL 4 Number and complexity of problems (moderate): 2 or more stable chronic illnesses - AR, AC Risks (moderate): -Prescription drug management- SCIT Plan Of Treatment Pending Test Test Name Order Date OVA [...] PYLORI, UREA BREATH TEST Next Appt Details Provider Name:GABRIELA NOLAN, 01:30:00 PM, [address] [place] [address], [address], [place], [address], Provider Name:GABRIELA NOLAN, 01:30:00 PM, [address] [place] [address], [address], [place], [address], Provider Name:GABRIELA NOLAN, 07:40:00 AM, [address] [place] [address], [address], [place], [address], Provider Name:GABRIELA NOLAN, 07:40:00 AM, [address] [place] [address], [address], [place], [address], Provider Name:GABRIELA NOLAN, 11:20:00 AM, [address], [address], [place], [address], Provider Name:GABRIELA NOLAN, 02:00:00 PM, [address], [address], [place], [address], Provider Name:GABRIELA NOLAN, 01:30:00 PM, [address], [address], [place], [address], Provider Name:GABRIELA NOLAN, 11:30:00 AM, [address], [address], [place], [address], Provider Name:GABRIELA NOLAN, 01:00:00 PM, [address] [place] [address], [address], [place], [address], Insurance Providers Payer Name Payer Address Payer Phone Subscriber Number Group Number Insured Name Patient Relationship to Insured Coverage Start Date Coverage End Date [place] [id number] [facility] [address] [place] [address] [id number] Jaz Lynch Self - patient is the insured Medical (General) History Medical History History ICD Code Cervical Radiculopathy Epicondylitis IBS Fibromyalgia Scoliosis Restless leg syndrome Hypothyroidism GERD Anxiety Depression PTSD Binge Eating Disorder Deviated Septum AR/AC Surgical History Surgery Date(Month/Year) Deviated Septum Surgery 2015 Bariatric Surgery 2021 Shoulder surgery 2016 Shoulder surgery 2018
--- OUTSIDE RECORDS SUMMARY | 2025-10-08 05:09 | XMS_ITS | Encounter Summary ---
Author Organization [facility] Address 800 [facility] 520 [place] [address] Care Team Providers Care Sociology Adjunct Instructor Name Role Phone Namrata Dixon MD Primary Care Provider [phone] Encounter Details Date Type Department Care Team (Late st Contact Info) Description 09/02/2025 Results Follow-Up [facility] Weight and Wellness [address] [place] [address] Kati Murphy NP 30 [facility] [place] [address] Social History Tobacco Use Types Packs/Day Years [...] Care Team (Late st Contact Info) Description 10/09/2025 8:15 AM EST Telemedicine [facility] Weight and Wellness 91 [facility] 208 [place] [address] Margie Garcia LICSW 91 [facility] 208 Dept. [facility] [place] [address] 11/24/2025 1:15 PM EST Office Visit [facility] Dermatology [address] [place] [address] Yarelis Hassan MD 260 [place] [address] 12/04/2025 11:00 AM EST Telemedicine [facility] Weight [facility] Wellness [address] [place] [address] Kati Murphy, BRANDON [address] [facility] [address] [place] [address] 12/04/2025 3:00 PM EST Telemedicine [facility] Weight and Wellness [address] [place] [address] [place] [address] Dept[address] [facility] Weight [place] [address] 02/11/2026 11:30 AM EDT Office Visit [facility] Weight [facility] Wellness [address] [place] [address] Kati Murphy, BRANDON 30 [facility] [address] [place] [address] 04/02/2026 11:00 AM EDT Office Visit [facility] Rheumatology 800 [facility] 3rd [place] [address] Jasper Nava MD 800 [facility] 406 [place] [address] 10/08/2026 10:45 AM EST Office Visit [facility] Dermatology [place] [address] [place] [phone] Jeni Pearce MD 800 [facility] [address] [place] [address] documented as of this encounter Visit Diagnoses Not on filedocumented in this encounter Care Teams Sociology Adjunct Instructor Relationship Specialty Start Date End Date Namrata Dixon MD [address] [place] [address] PCP - General Paper Sealer 03/24/25 documented as of this encounter
--- OUTSIDE RECORDS SUMMARY | 2025-10-08 05:10 | XMS_ITS | Encounter Summary ---
Author Organization [facility] Address 1 [place] [address] Phone Care Team Providers Care Deck Specialist Name Role Phone Namrata Dixon MD Unavailable [phone] Namrata Dixon MD Primary Care Provider [phone] Encounter Details Date Type Department Care Team (Latest Contact Info) Description 10/04/2025 Travel Social History Tobacco Use Types Packs/Day Years Used Date Smoking Tobacco: Never Smokeless Tobacco: Never Medications Answer Date Recorded Do you have [...] PM EST documented as of this encounter Functional Status * Calculated C-SSRS Risk Score (Lifetime/Recent) Answer Date of Assessment Author No Risk Indicated 10/04/2025 2:49 PM Harriet Huber RN * Cooper Suicide Severity Rating Scale (Screener/Recent Self-Report) Question Answer Date of Assessment Author 1. Wish to be (Past 1 Month) No 025 2:49 PM Harriet Huber, ZO 2. Non-Specific Active Suici dwayne Thoughts (Past 1 Month) No 10/04/2025 2:49 PM Harriet Huber RN 6. Suicidal Behavior (Lifetime) No 2:49 PM Harriet Huber RN documented as of this encounter Plan of Treatment Not on file documented as of this encounter Visit Diagnoses Not on filedocumented in this encounter Care Teams Deck Specialist Relationship Specialty Start Date [place] [address] PCP - Insurance 10/04/25 [place] [address] PCP - General Internal Medicine 10/04/25 documented as of this encounter
--- OUTSIDE RECORDS SUMMARY | 2025-10-08 05:10 | XMS_ITS | Clinical Summary ---
Author Organization [facility] Address 800 [facility] [address] [place] [address] Care Team Providers Care Sand Molder Name Role Phone Namrata Dixon MD Primary Care Provider [phone] Allergies Active Allergy Reactions Criticality Noted Date [...] (six) hours if needed for wheezing. Active sulfacetamide sodium-sulfur 10-1 % cleanserIndicat ions:Rosacea [...] 3 mL 3 08/13/20 25 026 Active ivermectin 1 % creamIndication s:Rosacea Apply topically once to twice daily to affected areas 45 g 2 10/02/20 Active ivermectin 1 % creamIndication s:Rosacea Apply topically once to twice daily to affected areas 60 g 04/03/20 25 025 Discontinued Active Problems Problem Noted Date Diagnosed Date Bariatric surgery status 08/13/2025 Class 3 severe obesity with serious comorbidity and body mass index (BMI) of 40.0 to 44.9 in adult 08/13/2025 BMI 31.0-31.9,adult 08/13/2025 PCOS (polycystic ovarian syndrome) 08/13/2025 Hypertension 08/13/2025 Hyperlipidemia 08/13/2025 Osteoarthritis 08/13/2025 Fibromyalgia 04/02/2025 Encounters Date Type Department Care Team Description 10/02/2025 11:00 AM EST Office Visit [facility] Dermatology [address] [address] Jeni Pearce MD Non-scarring hair loss (Primary Dx); PCOS (polycystic ovarian syndrome); Seborrheic dermatitis; Rosacea 10/02/2025 Travel 09/02/2025 Results Follow-Up [facility] Weight and Wellness [address] [address] Kati Murphy NP 08/27/2025 Orders Only [facility] [address] [place] [address] Kati Murphy NP 08/18/2025 Telephone [facility] Weight and Wellness [address] [address] Kati Murphy NP PA for Ozempic 1mg 08/13/2025 11:30 AM EDT Office Visit [facility] Weight and Wellness [address] [address] Kati Murphy NP Class 3 severe obesity [...] Travel 08/05/2025 1:00 PM EDT Clinical Support [facility] Wellness [address] [address] Margie Garcia LICSW 08/05/2025 Travel from Last [...] Info) Description 10/09/2025 8:15 AM EST Telemedicine [facility] Weight and Wellness [address] [place] [address] Margie Garcia LICSW 91 [facility] 208 Dept. [facility] [place] [address] 11/24/2025 1:15 PM EST Office Visit [facility] Dermatology 260 [place] [address] Yarelis Hassan MD 260 [place] [address] 12/04/2025 11:00 AM EST Telemedicine [facility] Weight and Wellness [address] [place] [address] Kati Murphy NP [address] [place] [address] 12/04/2025 3:00 PM EST Telemedicine [facility] Weight and Wellness 91 [facility] 208 [place] [address] 91 [facility] 208 Dept. [facility] [place] [address] 02/11/2026 11:30 AM EDT Office Visit [facility] Weight and Wellness 91 [facility] 208 [place] [address] Kati Murphy NP [address] [facility] [place] [address] 04/02/2026 11:00 AM EDT Office Visit [facility] Rheumatology 800 [facility] 3rd [place] [phone] Jasper Nava MD 800 [facility] [address] [place] [address] 10/08/2026 10:45 AM EST Office Visit [facility] Dermatology [place] [address] [place] [address] Jeni Pearce MD 800 [facility] [address] [place] [address] Health Maintenance Due Date Last Done Comments [...] age to complete this topic HPV Vaccines (No Doses Required) Completed Hepatitis A Vaccines Aged Out No long [...] - 08/28/2025 12:05 AM EDT Performed at: [facility] [address] [id number] Bag Filler: Deirdre Owens MD, Phone: [phone] Kati Murphy NP LAB BLOOD ORDERABLES Final Result Performing Organization Address City/State/[facility] Co de Phone Number [facility] [address] [facility] 1 * Iron, Ferritin, TIBC (08/27/2025 [...] 08/28/2025 3:45 AM EDT Performed at: - [address] [id number] Bag Filler: Deirdre Owens MD, Phone: [phone] Kati Murphy NP LAB BLOOD ORDERABLES Final Result Performing Organization Address [facility] Phone Number [facility] [address] [place] [address], [facility] 1 * Copper (08/27/2025 7:37 AM EDT) Copper Lvl 110 80 - 158 ug/dL [facility] 1 Comment:Detection Limit = 5 08/27/2025 7:37 AM EDT 08/27/2025 Narrative [facility] - 08/30/2025 9:15 PM EDT Test(s) [id number], Serum or Plasma was developed and its performance characteristics determined by [facility]. It has not been cleared or approved by the Food and Drug Administration. Performed at: [address] [id number] Bag Filler: Lisbet Skinner MD, Phone: [phone] Kati Murphy NP LAB BLOOD ORDERABLES Final Result Performing Organization Address [facility] Phone Number [facility] [address] [place] [address], [facility] 1 * Zinc (08/27/2025 7:37 AM EDT) Zinc Lvl 99 44 - 115 ug/dL [facility] 1 Comment:Detection Limit = 5 08/27/2025 7:37 AM EDT 08/27/2025 Narrative [facility] - 08/30/2025 9:15 PM EDT Test(s) [id number], Plasma or Serum was developed and its performance characteristics determined by [facility]. It has not been cleared or approved by the Food and Drug Administration. Performed at: - [address] [id number] Bag Filler: Lisbet Skinner MD, Phone: [phone] Kati Murphy NP LAB BLOOD ORDERABLES Final Result Performing Organization Address [facility] Phone Number [facility] [address] [place] [address], [facility] 1 * (ABNORMAL) Vitamin A (08/27/2025 7:37 [...] developed and its performance characteristics determined by [facility]. It has not been cleared or approved by the Food and Drug Administration. 08/27/2025 7:37 AM EDT 08/27/2025 Narrative [facility] - 09/01/2025 9:45 AM EDT Performed at: [address] [place] [id number] Bag Filler: Lisbet Skinner MD, Phone: [phone] Kati Murphy NP LAB BLOOD ORDERABLES Final Result Performing Organization Address [facility] Phone Number [facility] [address] [place] [address], [facility] 1 * Vit D 25 hydroxy (08/27/2025 7:37 AM EDT) Vitamin D, 25-Hydroxy 40.4 30.0 - 100.0 ng/mL [facility] 1 Comment: Vitamin D deficiency has been defined by the [place] of Medicine and an Endocrine Society practice guideline as a level of serum 25-OH vitamin D less than 20 ng/mL (1,2). The Endocrine Society went on to further define vitamin D insufficiency as a level between 21 and 29 ng/mL (2). 1. IOM ([place] of Medicine). 2010. Dietary reference intakes for calcium and D. [place]: The National Academies Press. 2. Jacob GARRISON, Mike MATHUR, Varsha ABURTO, et al. Evaluation, treatment, and prevention of vitamin D deficiency: an Endocrine Society clinical practice guideline. JCEM. 2011 May; 967):1911-30. 08/27/2025 7:37 AM EDT 08/27/2025 Narrative [facility] - 08/28/2025 1:15 AM EDT Performed at: - [facility] [address] [id number] Bag Filler: Deirdre Owens MD, Phone: [phone] Kati Murphy CONSTRUCTION ADMINISTRATIVE ASSISTANT LAB BLOOD ORDERABLES Final Result Performing Organization Address City/[facility]/ZIP Co de Phone Number [facility] [address] [place] [address], [facility] 1 * CBC (08/27/2025 7:37 AM [...] 10:15 PM EDT Performed at: - [facility] [address] [id number] Bag Filler: Deirdre Owens MD, Phone: [phone] Kati Murphy NP LAB BLOOD ORDERABLES Final Result Performing Organization Address City/[facility]/ZIP Co de Phone Number [facility] [address] [place] [address], [facility] 1 * Vitamin B1 (Thiamine), Whole Blood (08/27/2025 7:37 AM EDT) Vitamin B1 Whl Bld 133.5 66.5 - 200.0 nmol/L [facility] 1 08/27/2025 7:37 AM EDT 08/27/2025 Narrative [facility] - 08/30/2025 9:15 AM EDT Test(s) [id number]-[id number]. B1, Whole Blood was developed and its performance characteristics determined by [facility]. It has not been cleared or approved by the Food and Drug Administration. Performed at: [address] [id number] Bag Filler: Lisbet Skinner MD, Phone: [phone] Kati Murphy NP LAB BLOOD ORDERABLES Final Result Performing Organization Address [facility]/ZIP Co de Phone Number [facility] [address] [place] [address], [facility] 1 * Alkaline phosphatase (08/27/2025 7:37 AM EDT) Alk Phosphatase 73 41 - 116 IU/L [facility] 1 08/27/2025 7:37 AM EDT 08/27/2025 Narrative [facility] - 08/27/2025 11:15 PM EDT Performed at: [address] [id number] Bag Filler: Deirdre Owens MD, Phone: [phone] Kati Murphy NP LAB BLOOD ORDERABLES Final Result Performing Organization Address City/[facility]/ZIP Co de Phone Number [facility] [address] [place] [address], [facility] 1 * PTH, intact (08/27/2025 7:37 AM EDT) PTH, Intact 22 15 - 65 pg/mL [facility] 1 08/27/2025 7:37 AM EDT 08/27/2025 Narrative [facility] - 08/28/2025 4:15 AM EDT Performed at: [address] [place] [id number] Bag Filler: Deirdre Owens MD, Phone: [phone] Kati Murphy NP LAB BLOOD ORDERABLES Final Result Performing Organization Address [facility] Phone Number [facility] [address] [place] [address], [facility] 1 * Hemoglobin A1c (08/27/2025 7:37 AM EDT) HgbA1C 5.2 4.8 - 5.6 % [facility] 1 Comment: Prediabetes: 5.7 - 6.4 Diabetes: >6.4 Glycemic control for adults with diabetes: <7.0 08/27/2025 7:37 AM EDT 08/27/2025 Narrative [facility] - 08/28/2025 12:05 AM EDT Performed at: [address] [place] [id number] Bag Filler: Deirdre Owens MD, Phone: [phone] Kati Murphy NP LAB BLOOD ORDERABLES Final Result Performing Organization Address [facility] Phone Number [facility] [address] [facility] 1 * Folate (08/27/2025 7:37 AM EDT) Folate 17.1 >3.0 ng/mL [facility] 1 Comment: A serum folate concentration of less than 3.1 ng/mL is considered to represent clinical deficiency. 08/27/2025 7:37 AM EDT 08/27/2025 Narrative [facility] - 08/28/2025 7:45 AM EDT Performed at: [address] [place] [id number] Bag Filler: Deirdre Owens MD, Phone: [phone] us Kati Murphy NP LAB BLOOD ORDERABLES Final Result Performing Organization Address City/[facility] Co de Phone Number [facility] [address] [place] [address], [facility] 1 * Vitamin B12 (08/27/2025 7:37 AM EDT) Vitamin B12 600 232 - 1,245 pg/mL [facility] 1 08/27/2025 7:37 AM EDT 08/27/2025 Narrative [facility] - 08/28/2025 5:45 AM EDT Performed at: [facility] [address] [id number] Bag Filler: Deirdre Owens MD, Phone: [phone] Kati Murphy NP LAB BLOOD ORDERABLES Final Result Performing Organization Address [facility] de Phone Number [facility] [address] [place] [address], [facility] 1 * (ABNORMAL) Cholesterol, total (08/27/2025 7:37 AM EDT) Cholesterol 241(H) 100 - 199 mg/dL [facility] 1 08/27/2025 7:37 AM EDT 08/27/2025 Narrative [facility] - 08/27/2025 11:15 PM EDT Performed at: [facility] [address] [id number] Bag Filler: Deirdre Owens MD, Phone: [phone] Kati Murphy NP LAB BLOOD ORDERABLES Final Result Performing Organization Address City/[facility] Co de Phone Number [facility] [address] [place] [address], [facility] 1 * Calcium, total (08/27/2025 7:37 AM EDT) Calcium 9.9 8.7 - 10.2 mg/dL [facility] 1 08/27/2025 7:37 AM EDT 08/27/2025 Narrative [facility] - 08/27/2025 11:15 PM EDT Performed at: - [facility] [place] [address] [place], [place] [id number] Bag Filler: Deirdre Owens MD, Phone: [phone] Kati Murphy CONSTRUCTION ADMINISTRATIVE ASSISTANT LAB BLOOD ORDERABLES Final Result Performing Organization Address [facility] de Phone Number [facility] [address] [place] [address], [place] [facility] 1 * Albumin (08/27/2025 7:37 AM EDT) [facility] Albumin 4.6 3.9 - 4.9 g/dL [facility] 1 08/27/2025 7:37 AM EDT 08/27/2025 Narrative [facility] - 08/27/2025 11:15 PM EDT Performed at: - [facility] [address] [id number] Bag Filler: Deirdre Owens MD, Phone: [phone] Kati Murphy NP LAB BLOOD ORDERABLES Final Result Performing Organization Address [facility] de Phone Number [facility] [address] [place] [address], [facility] 1 from Last 3 Months Insurance [facility] ACO Care Teams Sand Molder Relationship Specialty Start Date End Date Namrata Dixon MD [address] [place] [address] PCP - General Senior Care Provider 03/24/25
== END 2025-10-07 14:10 | disposition home or self-care (01) ==
LOC: HO.HBST 13:09
PROVIDERS: PCP Internal Medicine; Visit Provider Counselor Mental Health
DX: F39 Unspecified mood [affective] disorder (principal); F41.1 Generalized anxiety disorder
CPT/HCPCS: 90837

== ENCOUNTER 2025-10-21 13:12 | Outpatient (AMB) | payer OTHER, SELFPAY ==
--- NOTE | 2025-10-21 13:05 | A.OFFWM_ITS ---
Intake Intake Visit Reasons: VIDEO PO LSG 02/06/22 Allergies cat dander (CAT DANDER) Allergy (Mild, Verified 01/02/25 12:56) EYES- TEAR, ITCHY, face swells dog dander (DOG DANDER) Allergy (Mild, Verified 01/02/25 12:56) EYES- TEAR, ITCHY, hives duloxetine (From CYMBALTA) Adverse Reaction (Intermediate, Verified 01/02/25 12:56) VAGINAL BLEEDING PFSH Medical History Bilateral knee pain Sacroiliac pain Positive DANIELE (antinuclear antibody) Refused influenza vaccine PTSD (post-traumatic stress disorder) Insomnia PONV (postoperative nausea and vomiting) Gastric ulcer Cholelithiasis Sacroiliitis Spondylosis of lumbar region without myelopathy or radiculopathy Scoliosis Goiter Restless leg syndrome ADHD (attention deficit hyperactivity disorder) Anxiety OCD (obsessive compulsive disorder) Hypertension GERD (gastroesophageal reflux disease) Vitamin D deficiency PCOS (polycystic ovarian syndrome) Body mass index [BMI]40.0-44.9, adult Irritable bowel syndrome with diarrhea Environmental and seasonal allergies Breast cancer screening by mammogram Dyslipidemia Gastritis Morbid obesity Hirsutism Telogen effluvium Heartburn Degenerative disc disease, lumbar Fibromyalgia Bipolar disorder Rosacea Acquired hypothyroidism Surgical History S/P laparoscopic sleeve gastrectomy Hx of bariatric surgery Hx of shoulder surgery Hx of cholecystectomy Hx of colonoscopy Miscarriage History of nasal surgery History of rotator cuff surgery Family History Father Diabetes mellitus Mother OCD (obsessive compulsive disorder) EITAN (generalized anxiety disorder) HTN (hypertension) Cancer Cervical cancer Family/Other FH: mental illness Maternal Grandmother EITAN (generalized anxiety disorder) Glaucoma Mental health disorder Maternal Grandfather Alzheimer disease Maternal Aunt Hypothyroidism Mental health disorder Paternal Grandmother Unknown family medical history Paternal Grandfather Unknown family medical history Sister Hypothyroidism Paternal Aunt Substance use disorder Maternal Uncle Substance use disorder Social History Household Members Other:: brother Housing: Apartment Are you a primary home child care provider to a significant other at home: No Do you presently have visiting nurse or other home services: No Alcohol intake: never Patient Tobacco Use Status: Former Tobacco user Tobacco use type: Cigarette Cigarettes Per Day: 20 Years Smoked: 3 e-Cigarette/Vaping Use: Never Used service: No Current occupational status: disabled Cognitive needs: No Hearing needs: No Vision needs: Yes Behavioral Health Assessment Weight Management Therapy Therapy Notes Details Subjective: The patient reports feeling better emotionally since the last visit. She was able to communicate with her psychiatric prescriber, resulting in medication adjustments to prevent running out of medication due to potential insurance issues. She is sleeping better, denies nightmares or irritability, and describes her mood as generally stable. The patient had a positive Thanksgiving with her partner and is looking forward to the upcoming s. Objective: The patient attended a behavioral health follow-up session via telehealth. Suppo rtive counseling was provided to reinforce recent improvements in mood and sleep. CBT-based interventions focused on maintaining healthy routines and identifying early warning signs of mood changes. Psychoeducation was provided regarding the importance of medication adherence and proactive communication with providers. The patient was encouraged to continue engaging in social and pleasurable activities, especially during the holiday season, and to utilize coping strategies previously discussed for ongoing emotional regulation. Assessment/Response: * Mental status: Alert and oriented ?4. Appearance appropriate. Mood euthymic and stable, affect congruent. Thought process logical and coherent. No evidence of psychosis. Insight and judgment intact. * Risk reported/identified: No suicidal or homicidal ideation, self-harm, or other acute safety concerns identified. Assessment & Plan Assessment & Plan (1) Unspecified mood [affective] disorder: Code(s): F39 - Unspecified mood [affective] disorder (2) Generalized anxiety disorder: Code(s): F41.1 - Generalized anxiety disorder Plan Follow up in 1 month. Next appointment scheduled for 11/25/2025 at 1:00 PM via video. Telehealth Telehealth Telehealth Platform: [employer] Location of provider rendering services: other (Home office. [place], [place]) Location of patient: address on file Patient Identification confirmed using: Name, : Yes Telehealth method: video Patient verbally consented to treatment: Yes Patient verbally consented to billing insurance company: Yes Patient informed of any privacy concerns related to visit: Yes Minutes spent on Phone/Video with Pt.: 55 [place] [address] Tele Psytx >53 mins Patient Type Established Diagnoses Unspecified mood [affective] disorder F39 Generalized anxiety disorder F41.1 Time Spent (min) 55
--- OUTSIDE RECORDS SUMMARY | 2025-10-21 15:09 | XMS_ITS | Encounter Summary ---
Author Organization [facility] Address 800 [facility] [address] [place] [address] Care Team Providers Care It Security Architect Name Role Phone Namrata Dixon MD Primary Care Provider [phone] Encounter Details Date Type Department Care Team (Late st Contact Info) Description 09/02/2025 Results Follow-Up [facility] Weight and Wellness [address] [place] [address] Kati Murphy NP 30 [place] [address] Social History Tobacco Use Types Packs/Day Years [...] Care Team (Late st Contact Info) Description 11/24/2025 1:15 PM EST Office Visit [facility] Dermatology [address] [place] [address] Yarelis Hassan MD 260 [place] [address] 12/04/2025 11:00 AM EST Telemedicine [facility] Weight and Wellness [address] [address] Kati Murphy, BRANDON [address] [place] [address] 12/04/2025 3:00 PM EST Telemedicine [facility] Weight and Wellness [address] 91 [facility] 208 Dept. [facility] [place] [address] 12/11/2025 3:30 PM EST Telemedicine [facility] Weight and Wellness [address] [place] [address] Margie Garcia LICSW [address] [place] [address] Dept. [facility] [place] [address] 02/11/2026 11:30 AM EDT Office Visit [facility] Weight [facility] Wellness [address] [place] [address] Kati Murphy, BRANDON [address] [place] [address] 04/02/2026 11:00 AM EDT Office Visit [facility] Rheumatology 800 [facility] 3rd [place] [address] Jasper Nava MD 800 [facility] 406 [place] [address] 10/08/2026 10:45 AM EST Office Visit [facility] Dermatology [place] [address] [place] [phone] Jeni Pearce MD 800 [facility] [address] [place] [address] documented as of this encounter Visit Diagnoses Not on filedocumented in this encounter Care Teams It Security Architect Relationship Specialty Start Date End Date Namrata Dixon MD [address] [place] [address] PCP - General Stator Connector 03/24/25 documented as of this encounter
--- OUTSIDE RECORDS SUMMARY | 2025-10-21 15:09 | XMS_ITS | Clinical Summary ---
Author Organization [facility] Address [address] [facility] [address] [place] [address] Care Team Providers Care Quiller Machine Fixer Name Role Phone Namrata Dixon MD Primary Care Provider [phone] Allergies Active Allergy Reactions Criticality Noted Date [...] to affected areas 60 g 11 04/03/20 025 Discontinued Active Problems Problem Noted Date Diagnosed Date Bariatric surgery status 08/13/2025 Class 3 severe obesity with serious comorbidity and body mass index (BMI) of 40.0 to 44.9 in adult 08/13/2025 BMI 31.0-31.9,adult 08/13/2025 PCOS (polycystic ovarian syndrome) 08/13/2025 Hypertension 08/13/2025 Hyperlipidemia 08/13/2025 Osteoarthritis 08/13/2025 Fibromyalgia 04/02/2025 Encounters Date Type Department Care Team Description 10/09/2025 8:15 AM EST Telemedicine [facility] Weight and Wellness [address] [place] [address] Margie Garcia LICSW Anxiety (Primary Dx); Trauma; Encounter for weight management; Excess weight 10/02/2025 11:00 AM EST Office Visit [facility] Dermatology [place] [address] [place] [address] Jeni Pearce MD Non-scarring hair loss (Primary Dx); PCOS (polycystic ovarian syndrome); Seborrheic dermatitis; Rosacea 10/02/2025 Travel 09/02/2025 Results Follow-Up [facility] Weight [facility] Wellness [address] [address] Kati Murhpy NP 08/27/2025 Orders Only [facility] [address] [place] [address] Kati Murphy NP 08/18/2025 Telephone [facility] Wellness [address] [address] Kati Murphy NP PA for Ozempic 1mg 08/13/2025 11:30 AM EDT Office Visit [facility] Wellness [address] [address] Kati Murphy NP Class 3 severe obesity [...] Travel 08/05/2025 1:00 PM EDT Clinical Support [facility] [address] [address] Margie Garcia LICSW 08/05/2025 Travel from Last [...] Description 11/24/2025 1:15 PM EST Office Visit [facility] Dermatology 260 [place] [address] Yarelis Hassan MD 260 [place] [address] 12/04/2025 11:00 AM EST Telemedicine [facility] Weight and Wellness [address] [place] [address] Kati Murphy NP [address] [facility] [place] [address] 12/04/2025 3:00 PM EST Telemedicine [facility] Weight and Wellness [address] [place], [place] [address] [address] 91 [facility] 208 Dept. [facility] [place] [address] 12/11/2025 3:30 PM EST Telemedicine [facility] Weight and Wellness 91 [facility] 208 [place] [address] Margie Garcia LICSW 91 [facility] 208 Dept. [facility] Weight [place] [address] 02/11/2026 11:30 AM EDT Office Visit [facility] Weight and Wellness 91 [facility] 208 [place] [address] Kati Murphy, BRANDON [address] [facility] [place] [address] 04/02/2026 11:00 AM EDT Office Visit [facility] Rheumatology 800 [facility] 3rd [place] [address] Jasper Nava MD 800 [facility] [address] [place] [address] 10/08/2026 10:45 AM EST Office Visit [facility] Dermatology [place] [address] [place] [address] Jeni Pearce MD 800 [facility] [address] [place] [address] Health Maintenance Due Date Last Done Comments [...] EDT Performed at: [facility] [id number] Corrections Lieutenant: Deirdre Owens MD, Phone: [phone] Kati Murphy NP LAB BLOOD ORDERABLES Final Result [facility] [address] [place] [address], [facility] 1 * Iron, Ferritin, TIBC (08/27/2025 [...] 08/28/2025 3:45 AM EDT Performed at: - [address] [id number] Corrections Lieutenant: Deirdre Owens MD, Phone: [phone] Kati Murphy NP LAB BLOOD ORDERABLES Final Result Performing Organization Address [facility] de Phone Number [facility] [address] [place] [address], [facility] 1 * Copper (08/27/2025 7:37 AM EDT) Copper Lvl 110 80 - 158 ug/dL [facility] 1 Comment:Detection Limit = 5 08/27/2025 7:37 AM EDT 08/27/2025 Narrative [facility] - 08/30/2025 9:15 PM EDT Test(s) [id number]-[id number], Serum or Plasma was developed and its performance characteristics determined by [facility]. It has not been cleared or approved by the Food and Drug Administration. Performed at: [address] [id number] Corrections Lieutenant: Lisbet Skinner MD, Phone: [phone] Kati Murphy NP LAB BLOOD ORDERABLES Final Result Performing Organization Address [facility] Co de Phone Number [facility] [address] [place] [address], [facility] 1 * Zinc (08/27/2025 7:37 AM EDT) Zinc Lvl 99 44 - 115 ug/dL [facility] 1 Comment:Detection Limit = 5 08/27/2025 7:37 AM EDT 08/27/2025 Narrative [facility] - 08/30/2025 9:15 PM EDT Test(s) 450626-Qcsh, Plasma or Serum was developed and its performance characteristics determined by [facility]. It has not been cleared or approved by the Food and Drug Administration. Performed at: [address] [id number] Corrections Lieutenant: Lisbet Skinner MD, Phone: [phone] Kati Murphy NP LAB BLOOD ORDERABLES Final Result Performing Organization Address [facility] Phone Number [facility] [address] [place] [address], [facility] 1 * (ABNORMAL) Vitamin A (08/27/2025 [...] developed and its performance characteristics determined by [facility]. It has not been cleared or approved by the Food and Drug Administration. 08/27/2025 7:37 AM EDT 08/27/2025 Narrative [facility] - 09/01/2025 9:45 AM EDT Performed at: [address] [place] [id number] Corrections Lieutenant: Lisbet Skinner MD, Phone: [phone] Kati Murphy NP LAB BLOOD ORDERABLES Final Result Performing Organization Address [facility] Phone Number [facility] [address] [place] [address], [facility] 1 * Vit D 25 hydroxy (08/27/2025 7:37 AM EDT) Vitamin D, 25-Hydroxy 40.4 30.0 - 100.0 ng/mL [facility] 1 Comment: Vitamin D deficiency has been defined by the [place] of Medicine and an Endocrine Society practice guideline as a level of serum 25-OH vitamin D less than 20 ng/mL (1,2). The Endocrine Society went on to further define vitamin D insufficiency as a level between 21 and 29 ng/mL (2). 1. IOM ([place] of Medicine). 2010. Dietary reference intakes for calcium and D. [place]: The National Academies Press. 2. Jacob MF, Mike MATHUR, Varsha ABURTO, et al. Evaluation, treatment, and prevention of vitamin D deficiency: an Endocrine Society clinical practice guideline. JCEM. 2010; 96(7):1911-30. 08/27/2025 7:37 AM EDT 08/27/2025 Narrative [facility] - 08/28/2025 1:15 AM EDT Performed at: - [facility] [address] [id number] Corrections Lieutenant: Deirdre Owens MD, Phone: [phone] Kati Murphy NP LAB BLOOD ORDERABLES Final Result Performing Organization Address City/State/[facility] Co de Phone Number [facility] [address] [place] [address], [facility] 1 * CBC (08/27/2025 7:37 AM [...] - 08/27/2025 10:15 PM EDT Performed at: [facility] [address] [id number] Corrections Lieutenant: Deirdre Owens MD, Phone: [phone] Kati Murphy NP LAB BLOOD ORDERABLES Final Result Performing Organization Address [facility] de Phone Number [facility] [address] [place] [address], [facility] 1 * Vitamin B1 (Thiamine), Whole Blood (08/27/2025 7:37 AM EDT) Vitamin B1 Whl Bld 133.5 66.5 - 200.0 nmol/L [facility] 1 08/27/2025 7:37 AM EDT 08/27/2025 Narrative [facility] - 08/30/2025 9:15 AM EDT Test(s) [id number]-Hmq. B1, Whole Blood was developed and its performance characteristics determined by [facility]. It has not been cleared or approved by the Food and Drug Administration. Performed at: - [address] [id number] Corrections Lieutenant: Lisbet Skinner MD, Phone: [phone] Kati Murphy NP LAB BLOOD ORDERABLES Final Result Performing Organization Address [facility] Phone Number [facility] [address] [place] [address], [facility] 1 * Alkaline phosphatase (08/27/2025 7:37 AM EDT) Alk Phosphatase 73 41 - 116 IU/L [facility] 1 08/27/2025 7:37 AM EDT 08/27/2025 Narrative [facility] - 08/27/2025 11:15 PM EDT Performed at: - [address] [id number] Corrections Lieutenant: Deirdre Owens MD, Phone: [phone] Kati Murphy NP LAB BLOOD ORDERABLES Final Result Performing Organization Address [facility] Co de Phone Number [facility] [address] [place] [address], [facility] 1 * PTH, intact (08/27/2025 7:37 AM EDT) PTH, Intact 22 15 - 65 pg/mL [facility] 1 08/27/2025 7:37 AM EDT 08/27/2025 Narrative [facility] - 08/28/2025 4:15 AM EDT Performed at: [address] [place] [id number] Corrections Lieutenant: Deirdre Owens MD, Phone: [phone] Kati Murphy NP LAB BLOOD ORDERABLES Final Result Performing Organization Address [facility] Co de Phone Number [facility] [address] [place] [address], [facility] 1 * Hemoglobin A1c (08/27/2025 7:37 AM EDT) [facility] HgbA1C 5.2 4.8 - 5.6 % [facility] 1 Comment: Prediabetes: 5.7 - 6.4 Diabetes: >6.4 Glycemic control for adults with diabetes: <7.0 08/27/2025 7:37 AM EDT 08/27/2025 Narrative [facility] - 08/28/2025 12:05 AM EDT Performed at: [address] [place] [id number] Corrections Lieutenant: Deirdre Owens MD, Phone: [phone] Kati Murphy NP LAB BLOOD ORDERABLES Final Result Performing Organization Address City/[facility] Co de Phone Number [facility] [address] [place] [address], [facility] 1 * Folate (08/27/2025 7:37 AM EDT) Pathologist [facility] Folate 17.1 >3.0 ng/mL [facility] 1 Comment: A serum folate concentration of less than 3.1 ng/mL is considered to represent clinical deficiency. 08/27/2025 7:37 AM EDT 08/27/2025 Narrative [facility] - 08/28/2025 7:45 AM EDT Performed at: [facility] [address] [id number] Corrections Lieutenant: Deirdre Owens MD, Phone: [phone] Kati Murphy NP LAB BLOOD ORDERABLES Final Result Performing Organization Address [facility] Co de Phone Number [facility] [address] [place] [address], [facility] 1 * Vitamin B12 (08/27/2025 7:37 AM EDT) Vitamin B12 600 232 - 1,245 pg/mL [facility] 1 08/27/2025 7:37 AM EDT 08/27/2025 Narrative [facility] - 08/28/2025 5:45 AM EDT Performed at: [facility] [id number] Corrections Lieutenant: Deirdre Owens MD, Phone: [phone] Kati Murphy NP LAB BLOOD ORDERABLES Final Result Performing Organization Address [facility] de Phone Number [facility] [address] [place] [address], [facility] 1 * (ABNORMAL) Cholesterol, total (08/27/2025 7:37 AM EDT) Cholesterol 241(H) 100 - 199 mg/dL [facility] 1 08/27/2025 7:37 AM EDT 08/27/2025 Narrative [facility] - 08/27/2025 11:15 PM EDT Performed at: [facility] [id number] Corrections Lieutenant: Deirdre Owens MD, Phone: [phone] Kati Murphy NP LAB BLOOD ORDERABLES Final Result Performing Organization Address [facility] Co de Phone Number [facility] [address] [place] [address], [facility] 1 * Calcium, total (08/27/2025 7:37 AM EDT) Calcium 9.9 8.7 - 10.2 mg/dL [facility] 1 08/27/2025 7:37 AM EDT 08/27/2025 Narrative [facility] - 08/27/2025 11:15 PM EDT Performed at: [facility] [id number] Corrections Lieutenant: Deirdre Owens MD, Phone: [phone] Kati Murphy NP LAB BLOOD ORDERABLES Final Result Performing Organization Address [facility] Co de Phone Number [facility] [address] [place] [address], [facility] 1 * Albumin (08/27/2025 7:37 AM EDT) Albumin 4.6 3.9 - 4.9 g/dL [facility] 1 08/27/2025 7:37 AM EDT 08/27/2025 Narrative [facility] - 08/27/2025 11:15 PM EDT Performed at: [facility] [id number] Corrections Lieutenant: Deirdre Owens MD, Phone: [phone] Kati Murphy NP LAB BLOOD ORDERABLES Final Result Performing Organization Address [facility] de Phone Number [facility] [address] [place] [address], [facility] 1 from Last [address] [place] [address] [place] [address] ACO Care Teams Quiller Machine Fixer Relationship Specialty Start Date End Date Namrata Dixon MD [address] [place] [address] PCP - General Doll Dresser 03/24/25
--- OUTSIDE RECORDS SUMMARY | 2025-10-21 15:09 | XMS_ITS | Encounter Summary ---
Author Organization [facility] Address [address] [facility] [place] [address] Phone Care Team Providers Care Elevator Installer Apprentice Name Role Phone Namrata Dixon MD Unavailable [phone] Namrata Dixon MD Primary Care Provider [phone] Reason for Visit * Reason Onset Date Comments Other 10/14/2025 Insole rx Encounter Details Date Type Department Care Team ([facility] st Contact Info) Description 10/14/2025 Telephone [facility] Podiatry [address] [facility], 9th [place] [address] Elmer León, HARMAN [address] [place] [address] Other (Insole rx) Social History Tobacco Use Types Packs/Day Years [...] PM EST documented as of this encounter Miscellaneous Notes * Telephone Encounter - Kelly Marin - 10/20/2025 10:48 AM EST Patient Reported Reason for Call Patient presents with Other Insole rx Fact Finding Questions Reason for call comments field updated: Yes Pt calling in would like to know if script was sent for her insole, pt would like a call back at [phone] * Telephone Encounter - Esther Swann MA - 10/15/2025 8:12 AM EST Please write script and I will fax over with last visit note, thanks! * Telephone Encounter - Veronica Marte - 10/14/2025 4:14 PM EST Patient Reported Reason for Call Patient presents with Other Insole rx Fact Finding Questions Reason for call comments field updated: Yes Pt calling to request an rx for insoles for her shoes as she states her insurance will cover them. She would like this sent to- [facility] P: [phone] F: [phone] She can be reached @ [phone] documented in this encounter Plan of Treatment Upcoming Encounters Date Type Department Care Team (Late st Contact Info) Description 11/24/2025 11:30 AM EST Office Visit [facility] Podiatry [address] [facility], 9th floor Building [place] [address] Elmer León, HARMAN [address] [place] [address] documented as of this encounter Visit Diagnoses Not on filedocumented in this encounter Care Teams Elevator Installer Apprentice Relationship Specialty Start Date End Date [place] [address] PCP - Insurance 10/04/25 [place] [address] PCP - General Internal Medicine 10/04/25 documented as of this encounter
--- OUTSIDE RECORDS SUMMARY | 2025-10-21 15:09 | XMS_ITS | Clinical Summary ---
Author Organization [facility] Address [address] [place] [address] Phone Care Team Providers Care Wind Turbine Design Engineer Name Role Phone Namrata Dixon MD Unavailable [phone] Namrata Dixon MD Primary Care Provider [phone] Allergies Active Allergy Reactions Criticality Noted Date Comments Cat Dander Other (See Comments) 07/30/2020 Duloxetine Other (See Comments) 03/20/2025 Vaginal bleeding Medications albuteroL 90 mcg/puff Inhalation HFA inhaler Inhale 2 puffs every 6 (six) hours as needed for wheezing. Active alclomethasone (ACLOVATE) 0.05 % cream APPLY TO HANDS TWICE A DAY NEEDED FOR FLARES. DECREASE SYMPTOMS IMPROVE 4 Active benzoyl peroxide 10 % Clsr APPLY TO FACE THEN RINSE TWICE A DAY 5 Active busPIRone (BUSPAR) 5 mg tablet Take 5 mg by mouth 3 (three) times a day. Active calcium carbonate-vitam in D3 250 mg-3 mcg (120 unit) Tab Take 1 tablet by mouth 2 (two) times a day. 5 Active VRAYLAR 1.5 mg capsule Take 1.5 mg by mouth. Active cariprazine (VRAYLAR) 3 mg capsule Take 3 mg by mouth. 5 Active cetirizine (ZYRTEC) 10 mg tablet Take 10 mg by mouth daily. 0 Active clindamycin (CLEOCIN T) 1 % gel APPLY TO ENTIRE FACE TWICE A DAY AFTER BENZOYL PEROXIDE CLEANSER 5 Active clonazePAM (KLONOPIN) 0.5 mg tablet Take 0.5 mg by mouth as needed. Active dextroamphetami ne-amphetamine (ADDERALL XR) 25 MG 24 hr capsule Take 25 mg by mouth. Active EPINEPHrine (EPIPEN) 0.3 mg/0.3 mL atIn SMARTSI.3 Milligram(s) injection PRN Active DAILY-CHAUNCEY, WITH FOLIC ACID, 400 mcg tablet Take 1 tablet by mouth daily. Active pregabalin (LYRICA) 25 MG capsule Take 25 mg by mouth. Active semaglutide, diabetes, (OZEMPIC) 0.25 mg or 0.5 mg (2 mg/3 mL) PEN 0.5 mg once a week. 5 Active sulfacetamide sodium-sulfur 10-1 % Clsr Use to wash affected areas once to twice daily. Active VIIBRYD 20 mg tablet Take 20 mg by mouth daily. Active predniSONE (DELTASONE) 5 mg tablet Take 1 tablet (5 mg total) by mouth daily for 8 days. Explain taper dose Take 8 tablets by mouth on day 1 7 tablets by mouth on day 2 6 tablets by mouth on day 3 5 tablets by mouth day 4 4 tablets by mouth day 5 3 tablets by mouth day 6 2 tablets by mouth day 7 1 tablets by mouth day 8 Total 36 tablets 36 tablet 5 10/21/20 Active ibuprofen (ADVIL,MOTRIN) 600 mg tablet Take 1 tablet (600 mg total) by mouth every 8 (eight) hours as needed for pain for up to 10 days. 30 tablet 5 10/14/20 acetaminophen (TYLENOL) 325 mg tablet Take 2 tablets (650 mg total) by mouth every 6 (six) hours as needed for pain for up to 10 days. 60 tablet 5 10/14/20 Active Problems Problem Noted Date Diagnosed Date Left foot pain 10/07/2025 Encounters Date Type Department Care Team Description 10/14/2025 Telephone [facility] Pod[facility] [address] [facility], 9th [place] [address] Elmer León DPM Other (Insole rx) 10/13/2025 1:35 PM EST Ancillary Procedure [facility] Podiatry [address] [address] Elmer León DPM Pain of left foot 10/13/2025 1:30 PM EST Office Visit [facility] Podiatry [address] [address] Elmer León DPM Plantar fasciitis, left (Primary Dx); Pain of left foot 10/04/2025 3:15 PM EST - 10/04/2025 4:49 PM EST Emergency [facility] Emergency Department [address] [place] [address] Guy Foy MD Left foot pain (Primary [...] 10/04/2025 2:46 PM EST Plan of Treatment Upcoming Encounters Date Type Department Care Team ([facility] st Contact Info) Description 11/24/2025 11:30 AM EST Office Visit [facility] [address] [facility], 9th [place] [address] Elmer León DPM [address] [place] [address] Health Maintenance Due Date Last Done Comments [...] 2008 MAMMOGRAM 2021 COVID-19 Vaccine ( - 2024-2 6 season) 2025 INFLUENZA VACCINE [...] Priority Date/Time Associated Diagnosis Comments XR LEFT FOOT, WEIGHT BEARING Routine 10/13/2025 1:47 PM EST Pain of left foot XR LEFT FOOT MINIMUM 3 VIEWS STAT 10/04/2025 3:03 PM EST from Last 3 Months Results * XR Left Weight Bearing Foot (10/13/2025 1:47 PM EST) [facility] PATIENT HEIGHT 160 GE RIS-IC [facility] PATIENT WEIGHT 77.565 GE RIS- Anatomical Region Laterality Modality Lower Extremities Left Computed Radio graphy 10/14/2025 3:48 PM EST Impressions 10/14/2025 3:50 PM EST No fracture Electronically signed by: Florecita Tse MD Signed date and time: 10/14/2025 3:50 PM Narrative 10/14/2025 3:50 PM EST Indication: Pain COMPARISON: October 04, 2025 3 VIEWS OF THE LEFT FOOT: No fracture or dislocation is identified. Mineralization is normal. Joint spaces are preserved. Soft tissues are unremarkable. Procedure Note Florecita Polk MD - 10/14/2025 Indication: Pain COMPARISON: October 04, 2025 3 VIEWS OF THE LEFT FOOT: No fracture or dislocation is identified.Mineralization is normal. Joint spaces are preserved. Soft tissues areunremarkable. IMPRESSION: No fracture Electronically signed by: Florecita Tse MD Signed date and time: 10/14/2025 3:50 PM us Elmer León DPM [facility] ORDERA BLES Final Result * XR Left Foot, Minimum 3 Views (10/04/2025 3:03 PM EST) [facility] PATIENT HEIGHT 160 GE RIS-IC [facility] IMG PATIENT WEIGHT 77.565 GE RIS-IC Anatomical Region [...] Signed date and time: 10/04/2025 3:13 PM us Guy Herrera MD IMG DIAGNOSTIC IMAGING ORD ERABLES Final Result from Last 3 Months Care Teams Wind Turbine Design Engineer Relationship Specialty Start Date [place] [address] PCP - Insurance 10/04/25 [place] [address] PCP - General Internal Medicine 10/04/25
--- OUTSIDE RECORDS SUMMARY | 2025-10-21 15:09 | XMS_ITS | Clinical Summary ---
Author Organization [facility] (historical information prior to 08/23/2025 only) Address [address] [place] [address] Care Team Providers Care Table Games Supervisor Name Role Phone Unavailable Primary Care [...] patient's age to complete this topic Insurance [facility]
== END 2025-10-21 14:27 | disposition home or self-care (01) ==
LOC: HO.HBST 13:12
PROVIDERS: PCP Internal Medicine; Visit Provider Counselor Mental Health
DX: F39 Unspecified mood [affective] disorder (principal); F41.1 Generalized anxiety disorder
CPT/HCPCS: 90837